=== PATIENT | female | born 1940 | race Caucasian/White ===

== ENCOUNTER → 2023-09-12 05:00 | Outpatient (REF) | payer MEDICARE, SELFPAY ==
[2023-09-12 09:06] LABS: Hemoglobin 10.2 g/dL (12.0-15.0); Mean Corp Hgb Conc 31.9 g/dL (32-36); Mean Corpuscular Hgb 31.6 pg (27.0-32.0); Mean Corpuscular Volume 99.1 fL (81-99); Mean Platelet Vol. 9.9 fl (6.2-12.0); Platelet Count 138 K/mm3 (150-450); RBC Distribution Width CV 13.7 % (11.6-14.6); Red Blood Count 3.23 M/mm3 (4.2-5.4); White Blood Count 3.9 K/mm3 (4.4-11.0)
[2023-09-12 09:36] LABS: Vitamin B12 847 pg/mL (211-911)
[2023-09-12 09:47] LABS: ALB/GLOB Ratio 1.2 RATIO (0.9-2.4); AST(SGOT) 17 U/L (15-37); Alanine Aminotransfer ALT/SGPT 18 U/L (13-56); Albumin, Serum 3.3 g/dL (3.2-5.0); Alkaline Phosphatase 77 U/L (45-117); Anion Gap 4 (5-15); BUN 19 mg/dL (7-18); BUN/Creat Ratio 20.1 RATIO (10-20); Calcium,Total 9.2 mg/dL (8.5-10.1); Chloride 113 mmol/L (98-107); Creatinine, Serum 0.94 mg/dL (0.55-1.02); EST Glomerular Filtration Rate 60 mL/min (>60); Est Glom Filt Rate - Afr Amer 73 mL/min (>60); Globulin 2.8 g/dL (2.2-4.2); Glucose 107 mg/dL (74-106); Potassium 3.4 mmol/L (3.5-5.1); Protein, Total 6.1 g/dL (6.4-8.2); Sodium Level 143 mmol/L (136-145); Thyroid Stim Hormone (TSH) 1.26 uIU/mL (0.358-3.74)
== END ==
LOC: OLS.ACH 05:00
PROVIDERS: Visit Provider Internal Medicine
DX: D63.1 Anemia in chronic kidney disease (principal); G60.3 Idiopathic progressive neuropathy; E03.9 Hypothyroidism, unspecified
CPT/HCPCS: 36415; 80053; 82607; 84443; 85027

== ENCOUNTER → 2023-09-23 | Outpatient (REF) | payer MEDICARE, SELFPAY ==
[2023-09-23 07:47] LABS: Bacteria 0 SEEN /hpf (None Seen); Mucous, Urine 0 SEEN /hpf (<or=2+); Red Blood Cells-Urine 0 SEEN /hpf (0-5); Squamous Epithelial Cells - UA 0 SEEN /hpf (5-10); White Blood Cells 0 SEEN /hpf (0-5)
[2023-09-23 08:08] LABS: Color, Urine Yellow (Yellow); Glucose, Dipstick Normal (Normal); Ketone-Dipstick Negative (Negative); Leukocyte Esterase-Dipstick Negative /ul (Negative); Nitrite-Dipstick Negative (Negative); Occult Blood-Urine Negative /ul (Negative); Protein-Dipstick Negative (Negative); Urine Bilirubin Dipstick Negative (Negative); Urine Clarity Sl. Cloudy (Clear); Urine Urobilinogen Normal (Normal); Urine pH 6.5 (5.0 - 8.0)
[2023-09-23 08:10] LABS: Hematocrit 31.9 % (37-47); Mean Corp Hgb Conc 31.3 g/dL (32-36); Mean Corpuscular Volume 98.8 fL (81-99); Platelet Count 118 K/mm3 (150-450); RBC Distribution Width CV 12.7 % (11.6-14.6); RBC Distribution Width SD 45.8 fl (35.1-43.9); Red Blood Count 3.23 M/mm3 (4.2-5.4); White Blood Count 4.1 K/mm3 (4.4-11.0)
[2023-09-23 08:38] LABS: Anion Gap 4 (5-15); BUN 19 mg/dL (7-18); BUN/Creat Ratio 19.6 RATIO (10-20); Calcium,Total 9.6 mg/dL (8.5-10.1); Chloride 106 mmol/L (98-107); Creatinine, Serum 0.97 mg/dL (0.55-1.02); EST Glomerular Filtration Rate 58 mL/min (>60); Est Glom Filt Rate - Afr Amer 71 mL/min (>60); Glucose 100 mg/dL (74-106); Potassium 4.2 mmol/L (3.5-5.1); Sodium Level 140 mmol/L (136-145)
== END ==
LOC: OLS.ACH 05:00
PROVIDERS: Visit Provider Internal Medicine
DX: I13.10 Hypertensive heart and chronic kidney disease without heart failure, with stage 1 through stage 4 chronic kidney disease, or unspecified chronic kidney disease (principal); N20.0 Calculus of kidney; Z87.440 Personal history of urinary (tract) infections
CPT/HCPCS: 36415; 80048; 81001; 85027; 87086

== ENCOUNTER → 2023-10-04 05:00 | Outpatient (REF) | payer MEDICARE, MEDICAID, SELFPAY ==
[2023-10-04 08:26] LABS: Potassium 4.4 mmol/L (3.5-5.1)
== END ==
LOC: OLS.ACH 05:00
PROVIDERS: Visit Provider Internal Medicine
DX: I13.10 Hypertensive heart and chronic kidney disease without heart failure, with stage 1 through stage 4 chronic kidney disease, or unspecified chronic kidney disease (principal); N18.9 Chronic kidney disease, unspecified
CPT/HCPCS: 36415; 84132

== ENCOUNTER → 2023-12-05 | Outpatient (REF) | payer MEDICARE, MEDICAID, SELFPAY ==
[2023-12-05 09:15] LABS: Hematocrit 29.3 % (37-47); Hemoglobin 9.3 g/dL (12.0-15.0); Mean Corp Hgb Conc 31.7 g/dL (32-36); Mean Corpuscular Hgb 30.3 pg (27.0-32.0); Mean Corpuscular Volume 95.4 fL (81-99); Mean Platelet Vol. 9.8 fl (6.2-12.0); Platelet Count 144 K/mm3 (150-450); RBC Distribution Width CV 13.4 % (11.6-14.6); RBC Distribution Width SD 46.7 fl (35.1-43.9); Red Blood Count 3.07 M/mm3 (4.2-5.4); White Blood Count 4.1 K/mm3 (4.4-11.0)
[2023-12-05 10:02] LABS: ALB/GLOB Ratio 1.1 RATIO (0.9-2.4); AST(SGOT) 3 U/L (15-37); Alanine Aminotransfer ALT/SGPT 13 U/L (13-56); Albumin, Serum 3.1 g/dL (3.2-5.0); Alkaline Phosphatase 97 U/L (45-117); Anion Gap 6 (5-15); BUN 34 mg/dL (7-18); BUN/Creat Ratio 32.4 RATIO (10-20); Calcium,Total 9.5 mg/dL (8.5-10.1); Chloride 105 mmol/L (98-107); Creatinine, Serum 1.05 mg/dL (0.55-1.02); EST Glomerular Filtration Rate 53 mL/min (>60); Est Glom Filt Rate - Afr Amer 64 mL/min (>60); Globulin 2.7 g/dL (2.2-4.2); Glucose 98 mg/dL (74-106); Potassium 4.6 mmol/L (3.5-5.1); Protein, Total 5.8 g/dL (6.4-8.2); Sodium Level 139 mmol/L (136-145)
== END ==
LOC: OLS.ACH 05:00
PROVIDERS: Visit Provider Internal Medicine
DX: G60.3 Idiopathic progressive neuropathy (principal); D63.1 Anemia in chronic kidney disease
CPT/HCPCS: 36415; 80053; 85027

== ENCOUNTER → 2023-12-20 | Outpatient (REF) | payer MEDICARE, MEDICAID, SELFPAY ==
[2023-12-20 09:57] LABS: Mucous, Urine 0 SEEN /hpf (<or=2+); White Blood Cells 0 SEEN /hpf (0-5)
[2023-12-20 10:27] LABS: Color, Urine Yellow (Yellow); Glucose, Dipstick Normal (Normal); Ketone-Dipstick Negative (Negative); Leukocyte Esterase-Dipstick 25 /ul (Negative); Nitrite-Dipstick Negative (Negative); Occult Blood-Urine Negative /ul (Negative); Protein-Dipstick Negative (Negative); Urine Bilirubin Dipstick Negative (Negative); Urine Clarity Clear (Clear); Urine Urobilinogen Normal (Normal); Urine pH 6.5 (5.0 - 8.0)
[2023-12-20 10:34] LABS: Red Blood Cells-Urine 0-5 SEEN /hpf (0-5)
[2023-12-20 10:34] LABS: Hematocrit 31.6 % (37-47); Mean Corp Hgb Conc 31.6 g/dL (32-36); Mean Corpuscular Hgb 30.7 pg (27.0-32.0); Mean Corpuscular Volume 96.9 fL (81-99); Platelet Count 142 K/mm3 (150-450); RBC Distribution Width CV 13.4 % (11.6-14.6); Red Blood Count 3.26 M/mm3 (4.2-5.4)
[2023-12-20 10:35] LABS: AST(SGOT) 17 U/L (15-37); Alanine Aminotransfer ALT/SGPT 13 U/L (13-56); Albumin, Serum 3.2 g/dL (3.2-5.0); Alkaline Phosphatase 99 U/L (45-117); Anion Gap 3 (5-15); BUN 28 mg/dL (7-18); BUN/Creat Ratio 24.1 RATIO (10-20); Calcium,Total 9.5 mg/dL (8.5-10.1); Chloride 108 mmol/L (98-107); Creatinine, Serum 1.16 mg/dL (0.55-1.02); EST Glomerular Filtration Rate 47 mL/min (>60); Est Glom Filt Rate - Afr Amer 57 mL/min (>60); Globulin 3.2 g/dL (2.2-4.2); Glucose 89 mg/dL (74-106); Potassium 4.8 mmol/L (3.5-5.1); Protein, Total 6.4 g/dL (6.4-8.2); Sodium Level 141 mmol/L (136-145)
[2023-12-20 10:35] LABS: Bacteria RARE /hpf (None Seen); Squamous Epithelial Cells - UA 0-5 SEEN /hpf (5-10); Transitional Epithelial - Ur 0-5 SEEN /hpf (0-5)
== END ==
LOC: OLS.ACH 05:00
PROVIDERS: Visit Provider Internal Medicine
DX: N18.30 Chronic kidney disease, stage 3 unspecified (principal); D63.1 Anemia in chronic kidney disease; I73.89 Other specified peripheral vascular diseases; R39.9 Unspecified symptoms and signs involving the genitourinary system; Z87.442 Personal history of urinary calculi
CPT/HCPCS: 36415; 80053; 81001; 85027; 87086; 87088

== ENCOUNTER → 2024-01-17 05:00 | Outpatient (REF) | payer MEDICARE, MEDICAID, SELFPAY ==
[2024-01-17 08:54] LABS: Hemoglobin 8.8 g/dL (12.0-15.0); Mean Corp Hgb Conc 31.4 g/dL (32-36); Mean Corpuscular Hgb 30.8 pg (27.0-32.0); Mean Corpuscular Volume 97.9 fL (81-99); Mean Platelet Vol. 10.1 fl (6.2-12.0); Platelet Count 122 K/mm3 (150-450); RBC Distribution Width CV 13.2 % (11.6-14.6); RBC Distribution Width SD 47.1 fl (35.1-43.9); Red Blood Count 2.86 M/mm3 (4.2-5.4); White Blood Count 3.6 K/mm3 (4.4-11.0)
[2024-01-17 09:23] LABS: Anion Gap 6 (5-15); BUN 26 mg/dL (7-18); BUN/Creat Ratio 24.1 RATIO (10-20); Calcium,Total 9.6 mg/dL (8.5-10.1); Chloride 105 mmol/L (98-107); Creatinine, Serum 1.08 mg/dL (0.55-1.02); EST Glomerular Filtration Rate 52 mL/min (>60); Est Glom Filt Rate - Afr Amer 62 mL/min (>60); Glucose 96 mg/dL (74-106); Potassium 4.9 mmol/L (3.5-5.1); Sodium Level 138 mmol/L (136-145)
== END ==
LOC: OLS.ACH 05:00
PROVIDERS: Visit Provider Internal Medicine
DX: I13.10 Hypertensive heart and chronic kidney disease without heart failure, with stage 1 through stage 4 chronic kidney disease, or unspecified chronic kidney disease (principal); N18.9 Chronic kidney disease, unspecified
CPT/HCPCS: 36415; 80048; 85027

== ENCOUNTER → 2024-01-18 05:00 | Outpatient (REF) | payer MEDICARE, MEDICAID, SELFPAY ==
[2024-01-18 08:35] LABS: Bacteria 0 SEEN /hpf (None Seen); Mucous, Urine 0 SEEN /hpf (<or=2+); Red Blood Cells-Urine 0 SEEN /hpf (0-5); Squamous Epithelial Cells - UA 0 SEEN /hpf (5-10); White Blood Cells 0 SEEN /hpf (0-5)
[2024-01-18 08:39] LABS: Hematocrit 29.8 % (37-47); Hemoglobin 9.6 g/dL (12.0-15.0); Mean Corp Hgb Conc 32.2 g/dL (32-36); Mean Corpuscular Hgb 30.9 pg (27.0-32.0); Mean Corpuscular Volume 95.8 fL (81-99); Mean Platelet Vol. 9.7 fl (6.2-12.0); Platelet Count 142 K/mm3 (150-450); RBC Distribution Width CV 13.3 % (11.6-14.6); RBC Distribution Width SD 46.8 fl (35.1-43.9); Red Blood Count 3.11 M/mm3 (4.2-5.4); White Blood Count 4.8 K/mm3 (4.4-11.0)
[2024-01-18 08:56] LABS: Ferritin 62 ng/mL (8-252); Iron 50 ug/dL (50-170); Iron Binding Capacity,Total 295 ug/dL (250-450); PERCENT IRON SATURATION 16.9 % (15.0-55.0)
[2024-01-18 09:07] LABS: Color, Urine Yellow (Yellow); Glucose, Dipstick Normal (Normal); Ketone-Dipstick Negative (Negative); Leukocyte Esterase-Dipstick Negative /ul (Negative); Nitrite-Dipstick Negative (Negative); Occult Blood-Urine Negative /ul (Negative); Protein-Dipstick Negative (Negative); Urine Bilirubin Dipstick Negative (Negative); Urine Clarity Clear (Clear); Urine Urobilinogen Normal (Normal); Urine pH 6.5 (5.0 - 8.0)
[2024-01-18 09:12] LABS: Vitamin B12 768 pg/mL (211-911)
== END ==
LOC: OLS.ACH 05:00
PROVIDERS: Visit Provider Internal Medicine
DX: R10.9 Unspecified abdominal pain (principal); D63.1 Anemia in chronic kidney disease; Z87.440 Personal history of urinary (tract) infections
CPT/HCPCS: 36415; 81001; 82607; 82728; 82746; 83540; 83550; 85027; 87086

== ENCOUNTER → 2024-01-23 05:00 | Outpatient (REF) | payer MEDICARE, MEDICAID, SELFPAY ==
[2024-01-23 11:03] LABS: Anion Gap 5 (5-15); BUN 27 mg/dL (7-18); BUN/Creat Ratio 26.7 RATIO (10-20); Calcium,Total 9.2 mg/dL (8.5-10.1); Chloride 106 mmol/L (98-107); Creatinine, Serum 1.01 mg/dL (0.55-1.02); EST Glomerular Filtration Rate 56 mL/min (>60); Est Glom Filt Rate - Afr Amer 67 mL/min (>60); Glucose 94 mg/dL (74-106); Potassium 4.4 mmol/L (3.5-5.1); Sodium Level 138 mmol/L (136-145)
== END ==
LOC: OLS.ACH 05:00
PROVIDERS: Visit Provider Internal Medicine
DX: N18.30 Chronic kidney disease, stage 3 unspecified (principal)
CPT/HCPCS: 36415; 80048

== ENCOUNTER → 2024-02-27 | Outpatient (REF) | payer MEDICARE, MEDICAID, SELFPAY ==
[2024-02-27 08:30] LABS: Hematocrit 27.7 % (37-47); Hemoglobin 8.8 g/dL (12.0-15.0); Mean Corp Hgb Conc 31.8 g/dL (32-36); Mean Corpuscular Hgb 30.4 pg (27.0-32.0); Mean Corpuscular Volume 95.8 fL (81-99); Mean Platelet Vol. 9.9 fl (6.2-12.0); Platelet Count 134 K/mm3 (150-450); RBC Distribution Width SD 46.1 fl (35.1-43.9); Red Blood Count 2.89 M/mm3 (4.2-5.4); White Blood Count 4.9 K/mm3 (4.4-11.0)
[2024-02-27 09:07] LABS: ALB/GLOB Ratio 1.1 RATIO (0.9-2.4); AST(SGOT) 14 U/L (15-37); Alanine Aminotransfer ALT/SGPT 12 U/L (13-56); Albumin, Serum 3.1 g/dL (3.2-5.0); Alkaline Phosphatase 94 U/L (45-117); Anion Gap 6 (5-15); BUN 31 mg/dL (7-18); Calcium,Total 8.9 mg/dL (8.5-10.1); Chloride 109 mmol/L (98-107); Creatinine, Serum 1.29 mg/dL (0.55-1.02); EST Glomerular Filtration Rate 42 mL/min (>60); Est Glom Filt Rate - Afr Amer 51 mL/min (>60); Globulin 2.7 g/dL (2.2-4.2); Glucose 95 mg/dL (74-106); Potassium 4.8 mmol/L (3.5-5.1); Protein, Total 5.8 g/dL (6.4-8.2); Sodium Level 140 mmol/L (136-145); Thyroid Stim Hormone (TSH) 0.011 uIU/mL (0.358-3.740)
== END ==
LOC: OLS.ACH 04:00
PROVIDERS: Visit Provider Internal Medicine
DX: E03.9 Hypothyroidism, unspecified (principal); D63.1 Anemia in chronic kidney disease; G60.3 Idiopathic progressive neuropathy
CPT/HCPCS: 36415; 80053; 82607; 84443; 85027

== ENCOUNTER → 2024-03-06 | Outpatient (REF) | payer MEDICARE, MEDICAID, SELFPAY ==
[2024-03-06 08:35] LABS: ALB/GLOB Ratio 1.1 RATIO (0.9-2.4); AST(SGOT) 12 U/L (15-37); Alanine Aminotransfer ALT/SGPT 11 U/L (13-56); Albumin, Serum 3.1 g/dL (3.2-5.0); Alkaline Phosphatase 106 U/L (45-117); Anion Gap 5 (5-15); BUN 28 mg/dL (7-18); BUN/Creat Ratio 22.4 RATIO (10-20); Calcium,Total 9.3 mg/dL (8.5-10.1); Chloride 109 mmol/L (98-107); Creatinine, Serum 1.25 mg/dL (0.55-1.02); EST Glomerular Filtration Rate 44 mL/min (>60); Est Glom Filt Rate - Afr Amer 53 mL/min (>60); Globulin 2.8 g/dL (2.2-4.2); Glucose 89 mg/dL (74-106); Magnesium 1.8 mg/dL (1.6-2.6); Potassium 5.5 mmol/L (3.5-5.1); Protein, Total 5.9 g/dL (6.4-8.2); Sodium Level 139 mmol/L (136-145)
== END ==
LOC: OLS.ACH 05:00
PROVIDERS: Visit Provider Internal Medicine
DX: G60.3 Idiopathic progressive neuropathy (principal)
CPT/HCPCS: 36415; 80053; 83735

== ENCOUNTER → 2024-03-07 | Outpatient (REF) | payer MEDICARE, MEDICAID, SELFPAY ==
[2024-03-07 09:15] LABS: Potassium 5.1 mmol/L (3.5-5.1)
== END ==
LOC: OLS.ACH 05:00
PROVIDERS: Visit Provider Internal Medicine
DX: E87.5 Hyperkalemia (principal)
CPT/HCPCS: 36415; 84132

== ENCOUNTER → 2024-03-08 | Outpatient (REF) | payer MEDICARE, MEDICAID, SELFPAY ==
[2024-03-08 09:18] LABS: Potassium 4.6 mmol/L (3.5-5.1)
== END ==
LOC: OLS.ACH 05:00
PROVIDERS: Visit Provider Internal Medicine
DX: E87.5 Hyperkalemia (principal)
CPT/HCPCS: 36415; 84132

== ENCOUNTER → 2024-03-09 | Outpatient (REF) | payer MEDICARE, MEDICAID, SELFPAY ==
[2024-03-09 10:35] LABS: Potassium 4.4 mmol/L (3.5-5.1)
== END ==
LOC: OLS.ACH 05:00
PROVIDERS: Visit Provider Internal Medicine
DX: E87.5 Hyperkalemia (principal)
CPT/HCPCS: 36415; 84132

== ENCOUNTER → 2024-03-20 | Outpatient (REF) | payer MEDICARE, MEDICAID, SELFPAY ==
[2024-03-20 09:33] LABS: Anion Gap 8 (5-15); BUN 27 mg/dL (7-18); BUN/Creat Ratio 27.2 RATIO (10-20); Calcium,Total 9.2 mg/dL (8.5-10.1); Chloride 108 mmol/L (98-107); Creatinine, Serum 0.99 mg/dL (0.55-1.02); EST Glomerular Filtration Rate 57 mL/min (>60); Est Glom Filt Rate - Afr Amer 69 mL/min (>60); Glucose 99 mg/dL (74-106); Potassium 4.1 mmol/L (3.5-5.1); Sodium Level 141 mmol/L (136-145)
== END ==
LOC: OLS.ACH 04:00
PROVIDERS: Referring Provider Internal Medicine; Visit Provider Internal Medicine
DX: I13.10 Hypertensive heart and chronic kidney disease without heart failure, with stage 1 through stage 4 chronic kidney disease, or unspecified chronic kidney disease (principal); I50.9 Heart failure, unspecified; N18.9 Chronic kidney disease, unspecified
CPT/HCPCS: 36415; 80048

== ENCOUNTER → 2024-04-06 05:00 | Outpatient (REF) | payer MEDICARE, MEDICAID, SELFPAY ==
[2024-04-06 08:28] LABS: Thyroid Stim Hormone (TSH) 0.024 uIU/mL (0.358-3.740)
== END ==
LOC: OLS.ACH 05:00
DX: E03.9 Hypothyroidism, unspecified (principal)
CPT/HCPCS: 36415; 84443

== ENCOUNTER → 2024-04-23 | Outpatient (REF) | payer MEDICARE, MEDICAID, SELFPAY ==
[2024-04-23 08:58] LABS: Hematocrit 30.1 % (37-47); Hemoglobin 9.8 g/dL (12.0-15.0); Mean Corp Hgb Conc 32.6 g/dL (32-36); Mean Corpuscular Hgb 30.8 pg (27.0-32.0); Mean Corpuscular Volume 94.7 fL (81-99); Mean Platelet Vol. 9.9 fl (6.2-12.0); Platelet Count 152 K/mm3 (150-450); RBC Distribution Width CV 13.8 % (11.6-14.6); RBC Distribution Width SD 47.7 fl (35.1-43.9); Red Blood Count 3.18 M/mm3 (4.2-5.4); White Blood Count 4.7 K/mm3 (4.4-11.0)
== END ==
LOC: OLS.ACH 05:00
PROVIDERS: Visit Provider Internal Medicine
DX: D64.9 Anemia, unspecified (principal)
CPT/HCPCS: 36415; 85027

== ENCOUNTER → 2024-05-04 | Outpatient (CLI) | payer MEDICARE, MEDICAID, SELFPAY ==
--- NOTE | 2024-05-04 15:14 | RAD_ITS ---
HISTORY: STONES. TECHNIQUE: XR Abdomen 1 View. COMPARISON: 08/15/2006. FINDINGS: BOWEL GAS PATTERN: No dilated small bowel loops identified. Mild gaseous distention of colon FREE AIR: Not assessed on supine view. CALCIFICATIONS: Several small calcifications overlying the renal shadows. Multiple vascular calcifications and pelvic phleboliths again seen. BONES: Lower lumbar spinal fusion hardware and Gamma nail fixation of chronic left intertrochanteric femur fracture with heterotopic ossification noted. SOFT TISSUES: Right upper quadrant surgical clips. Left abdominal surgical clips with suture. RAD/Abdomen Single View IMPRESSION: Probable bilateral nephrolithiasis. Electronically Signed: Chey Morley MD at 9:15 EST ,
== END | disposition home or self-care (01) ==
PROVIDERS: Referring Provider Urology; Visit Provider Urology
DX: N20.0 Calculus of kidney (principal)
CPT/HCPCS: 74018

== ENCOUNTER → 2024-05-17 21:42 | Outpatient (REF) | payer MEDICARE, MEDICAID, SELFPAY ==
[2024-05-18 09:31] LABS: Bacteria 0 SEEN /hpf (None Seen); Mucous, Urine 0 SEEN /hpf (<or=2+); Red Blood Cells-Urine 0 SEEN /hpf (0-5)
[2024-05-18 10:12] LABS: Color, Urine Yellow (Yellow); Glucose, Dipstick Normal (Normal); Ketone-Dipstick Negative (Negative); Leukocyte Esterase-Dipstick 500 /ul (Negative); Nitrite-Dipstick Negative (Negative); Occult Blood-Urine 10 /ul (Negative); Protein-Dipstick 15 mg/dl (Negative); Urine Bilirubin Dipstick Negative (Negative); Urine Clarity Sl. Cloudy (Clear); Urine Urobilinogen Normal (Normal)
[2024-05-18 10:33] LABS: White Blood Cells 10-25 SEEN /hpf (0-5)
[2024-05-18 10:34] LABS: Squamous Epithelial Cells - UA 0-5 SEEN /hpf (5-10)
== END ==
LOC: OLS.ACH 21:42
PROVIDERS: Referring Provider Internal Medicine; Visit Provider Internal Medicine
DX: N39.0 Urinary tract infection, site not specified (principal)
CPT/HCPCS: 81001

== ENCOUNTER → 2024-05-21 05:00 | Outpatient (REF) | payer MEDICARE, MEDICAID, SELFPAY ==
[2024-05-21 09:58] LABS: Hematocrit 30.1 % (37-47); Hemoglobin 9.7 g/dL (12.0-15.0); Mean Corp Hgb Conc 32.2 g/dL (32-36); Mean Corpuscular Hgb 31.2 pg (27.0-32.0); Mean Corpuscular Volume 96.8 fL (81-99); Mean Platelet Vol. 10.2 fl (6.2-12.0); Platelet Count 139 K/mm3 (150-450); RBC Distribution Width CV 13.7 % (11.6-14.6); RBC Distribution Width SD 48.4 fl (35.1-43.9); Red Blood Count 3.11 M/mm3 (4.2-5.4); White Blood Count 5.2 K/mm3 (4.4-11.0)
[2024-05-21 10:53] LABS: ALB/GLOB Ratio 1.1 RATIO (0.9-2.4); AST(SGOT) 16 U/L (15-37); Alanine Aminotransfer ALT/SGPT 15 U/L (13-56); Albumin, Serum 3.1 g/dL (3.2-5.0); Alkaline Phosphatase 105 U/L (45-117); Anion Gap 6 (5-15); BUN 29 mg/dL (7-18); BUN/Creat Ratio 27.1 RATIO (10-20); Chloride 112 mmol/L (98-107); Creatinine, Serum 1.07 mg/dL (0.55-1.02); EST Glomerular Filtration Rate 52 mL/min (>60); Est Glom Filt Rate - Afr Amer 63 mL/min (>60); Globulin 2.9 g/dL (2.2-4.2); Glucose 105 mg/dL (74-106); Sodium Level 142 mmol/L (136-145); Thyroid Stim Hormone (TSH) 0.034 uIU/mL (0.358-3.740)
== END ==
LOC: OLS.ACH 05:00
PROVIDERS: Visit Provider Internal Medicine
DX: E03.9 Hypothyroidism, unspecified (principal)
CPT/HCPCS: 36415; 80053; 84443; 85027

== ENCOUNTER → 2024-07-02 05:00 | Outpatient (REF) | payer MEDICARE, MEDICAID, SELFPAY ==
[2024-07-02 09:30] LABS: Hematocrit 31.5 % (37-47); Hemoglobin 9.9 g/dL (12.0-15.0); Mean Corp Hgb Conc 31.4 g/dL (32-36); Mean Corpuscular Hgb 30.2 pg (27.0-32.0); Mean Platelet Vol. 10.2 fl (6.2-12.0); Platelet Count 143 K/mm3 (150-450); RBC Distribution Width CV 14.4 % (11.6-14.6); RBC Distribution Width SD 50.4 fl (35.1-43.9); Red Blood Count 3.28 M/mm3 (4.2-5.4); White Blood Count 4.8 K/mm3 (4.4-11.0)
[2024-07-02 09:53] LABS: Vitamin B12 1871 pg/mL (211-911)
[2024-07-02 10:19] LABS: AST(SGOT) 22 U/L (15-37); Alanine Aminotransfer ALT/SGPT 20 U/L (13-56); Albumin, Serum 3.1 g/dL (3.2-5.0); Alkaline Phosphatase 68 U/L (45-117); Anion Gap 11 (5-15); BUN 31 mg/dL (7-18); BUN/Creat Ratio 21.5 RATIO (10-20); Calcium,Total 8.6 mg/dL (8.5-10.1); Chloride 110 mmol/L (98-107); Creatinine, Serum 1.44 mg/dL (0.55-1.02); EST Glomerular Filtration Rate 37 mL/min (>60); Est Glom Filt Rate - Afr Amer 45 mL/min (>60); Globulin 3.2 g/dL (2.2-4.2); Glucose 95 mg/dL (74-106); Potassium 3.3 mmol/L (3.5-5.1); Protein, Total 6.3 g/dL (6.4-8.2); Sodium Level 139 mmol/L (136-145)
== END ==
LOC: OLS.ACH 05:00
PROVIDERS: Visit Provider Internal Medicine
DX: I13.10 Hypertensive heart and chronic kidney disease without heart failure, with stage 1 through stage 4 chronic kidney disease, or unspecified chronic kidney disease (principal)
CPT/HCPCS: 36415; 80053; 82607; 84443; 85027

== ENCOUNTER → 2024-07-06 05:00 | Outpatient (REF) | payer MEDICARE, MEDICAID, SELFPAY ==
[2024-07-06 08:00] LABS: Anion Gap 5 (5-15); BUN 20 mg/dL (7-18); BUN/Creat Ratio 18.7 RATIO (10-20); Calcium,Total 9.3 mg/dL (8.5-10.1); Chloride 114 mmol/L (98-107); Creatinine, Serum 1.07 mg/dL (0.55-1.02); EST Glomerular Filtration Rate 52 mL/min (>60); Est Glom Filt Rate - Afr Amer 63 mL/min (>60); Glucose 112 mg/dL (74-106); Potassium 3.8 mmol/L (3.5-5.1); Sodium Level 142 mmol/L (136-145)
== END ==
LOC: OLS.ACH 05:00
PROVIDERS: Visit Provider Internal Medicine
DX: N18.30 Chronic kidney disease, stage 3 unspecified (principal)
CPT/HCPCS: 36415; 80048

== ENCOUNTER → 2024-07-11 | Outpatient (REF) | payer MEDICARE, MEDICAID, SELFPAY ==
[2024-07-12 08:09] LABS: Mucous, Urine 0 SEEN /hpf (<or=2+); Squamous Epithelial Cells - UA 0 SEEN /hpf (5-10)
[2024-07-12 08:39] LABS: Color, Urine Yellow (Yellow); Glucose, Dipstick Normal (Normal); Ketone-Dipstick Negative (Negative); Leukocyte Esterase-Dipstick 100 /ul (Negative); Nitrite-Dipstick Positive (Negative); Occult Blood-Urine Negative /ul (Negative); Protein-Dipstick 15 mg/dl (Negative); Urine Bilirubin Dipstick Negative (Negative); Urine Clarity Sl. Cloudy (Clear); Urine Urobilinogen Normal (Normal); Urine pH 6.5 (5.0 - 8.0)
[2024-07-12 08:50] LABS: Bacteria 1+ /hpf (None Seen); White Blood Cells 5-10 SEEN /hpf (0-5)
[2024-07-12 11:09] LABS: Red Blood Cells-Urine 0 SEEN /hpf (0-5)
== END ==
LOC: OLS.ACH 13:00
PROVIDERS: Visit Provider Internal Medicine
DX: R39.9 Unspecified symptoms and signs involving the genitourinary system (principal); Z87.442 Personal history of urinary calculi
CPT/HCPCS: 81001; 87086; 87088; 87186

== ENCOUNTER → 2024-07-11 | Outpatient (REF) | payer MEDICARE, MEDICAID, SELFPAY ==
[2024-07-11 08:26] LABS: Hematocrit 29.6 % (37-47); Hemoglobin 10.1 g/dL (12.0-15.0); Mean Corp Hgb Conc 34.1 g/dL (32-36); Mean Corpuscular Hgb 32.7 pg (27.0-32.0); Mean Corpuscular Volume 95.8 fL (81-99); Mean Platelet Vol. 9.6 fl (6.2-12.0); Platelet Count 176 K/mm3 (150-450); RBC Distribution Width CV 14.6 % (11.6-14.6); RBC Distribution Width SD 48.5 fl (35.1-43.9); Red Blood Count 3.09 M/mm3 (4.2-5.4); White Blood Count 7.2 K/mm3 (4.4-11.0)
[2024-07-11 09:25] LABS: ALB/GLOB Ratio 1.8 RATIO (0.9-2.4); AST(SGOT) 21 U/L (<=31); Alanine Aminotransfer ALT/SGPT 13 U/L (<=34); Albumin, Serum 3.7 g/dL (3.4-4.8); Alkaline Phosphatase 82 U/L (35-104); Anion Gap 11 (5-15); BUN 22 mg/dL (4-19); BUN/Creat Ratio 23.3 RATIO (10-20); Calcium 8.9 mg/dL (7.6-11.0); Carbon Dioxide 21.1 mmol/L (22.0-29.0); Chloride 109 mmol/L (96-108); Creatinine, Serum 0.9 mg/dL (0.6-1.0); EST Glomerular Filtration Rate 61 (>60); Globulin 2.1 g/dL (2.2-4.2); Glucose 96 mg/dL (70-99); Potassium 3.7 mmol/L (3.3-5.1); Protein, Total 5.7 g/dL (5.9-8.4); Sodium Level 141 mmol/L (133-145); Total Bilirubin 0.65 mg/dL (0.00-1.30)
== END ==
LOC: OLS.ACH 05:00
PROVIDERS: Visit Provider Internal Medicine
DX: Z87.442 Personal history of urinary calculi (principal)
CPT/HCPCS: 36415; 80053; 85027

== ENCOUNTER → 2024-07-24 | Outpatient (REF) | payer MEDICARE, MEDICAID, SELFPAY ==
[2024-07-24 08:10] LABS: Mucous, Urine 0 SEEN /hpf (<or=2+)
[2024-07-24 08:38] LABS: Color, Urine Yellow (Yellow); Glucose, Dipstick Normal (Normal); Ketone-Dipstick Negative (Negative); Leukocyte Esterase-Dipstick 500 /ul (Negative); Nitrite-Dipstick Positive (Negative); Occult Blood-Urine Negative /ul (Negative); Protein-Dipstick 30 mg/dl (Negative); Specific Gravity, Urine 1.015 (1.002-1.030); Urine Bilirubin Dipstick Negative (Negative); Urine Clarity Clear (Clear); Urine Urobilinogen Normal (Normal)
[2024-07-24 09:49] LABS: Bacteria 4+ /hpf (None Seen); Red Blood Cells-Urine 0 SEEN /hpf (0-5); Squamous Epithelial Cells - UA 0-5 SEEN /hpf (5-10); White Blood Cells 25-50 SEEN /hpf (0-5)
== END ==
LOC: OLS.ACH 01:00
PROVIDERS: Visit Provider Internal Medicine
DX: R73.03 Prediabetes (principal); R39.9 Unspecified symptoms and signs involving the genitourinary system; Z87.440 Personal history of urinary (tract) infections
CPT/HCPCS: 81001; 87086; 87088; 87186

== ENCOUNTER → 2024-07-30 | Outpatient (REF) | payer MEDICARE, MEDICAID, SELFPAY ==
[2024-07-30 13:39] LABS: Vitamin B12 802 pg/mL (180-914)
== END ==
LOC: OLS.ACH 05:00
PROVIDERS: Visit Provider Internal Medicine
DX: D64.9 Anemia, unspecified (principal)
CPT/HCPCS: 36415; 82607

== ENCOUNTER → 2024-08-13 | Outpatient (REF) | payer MEDICARE, MEDICAID, SELFPAY ==
[2024-08-13 08:45] LABS: Hematocrit 29.7 % (37-47); Hemoglobin 9.9 g/dL (12.0-15.0); Mean Corp Hgb Conc 33.3 g/dL (32-36); Mean Corpuscular Hgb 32.7 pg (27.0-32.0); Platelet Count 149 K/mm3 (150-450); RBC Distribution Width CV 14.3 % (11.6-14.6); RBC Distribution Width SD 50.4 fl (35.1-43.9); Red Blood Count 3.03 M/mm3 (4.2-5.4); White Blood Count 4.7 K/mm3 (4.4-11.0)
[2024-08-13 09:19] LABS: ALB/GLOB Ratio 1.6 RATIO (0.9-2.4); AST(SGOT) 27 U/L (<=31); Alanine Aminotransfer ALT/SGPT 18 U/L (<=34); Albumin, Serum 3.8 g/dL (3.4-4.8); Alkaline Phosphatase 79 U/L (35-104); Anion Gap 11 (5-15); BUN 28 mg/dL (4-19); BUN/Creat Ratio 26.2 RATIO (10-20); Calcium,Total 9.3 mg/dL (7.6-11.0); Carbon Dioxide 22.4 mmol/L (21.0-32.0); Chloride 107 mmol/L (98-108); Creatinine, Serum 1.06 mg/dL (0.70-1.20); EST Glomerular Filtration Rate 52 (>60); Globulin 2.3 g/dL (2.2-4.2); Glucose 94 mg/dL (70-99); Potassium 4.1 mmol/L (3.3-5.1); Protein, Total 6.1 g/dL (5.9-8.4); Sodium Level 140 mmol/L (133-145); Total Bilirubin 1.12 mg/dL (0.00-1.30); Vitamin B12 744 pg/mL (180-914)
== END ==
LOC: OLS.ACH 05:00
PROVIDERS: Visit Provider Family Medicine
DX: E03.9 Hypothyroidism, unspecified (principal)
CPT/HCPCS: 36415; 80053; 82607; 84443; 85027

== ENCOUNTER → 2024-09-03 | Outpatient (REF) | payer MEDICARE, MEDICAID, SELFPAY ==
[2024-09-03 09:26] LABS: Hematocrit 29.9 % (37-47); Hemoglobin 9.5 g/dL (12.0-15.0); Mean Corp Hgb Conc 31.8 g/dL (32-36); Mean Corpuscular Volume 97.7 fL (81-99); Mean Platelet Vol. 10.3 fl (6.2-12.0); Platelet Count 145 K/mm3 (150-450); RBC Distribution Width CV 13.6 % (11.6-14.6); RBC Distribution Width SD 48.5 fl (35.1-43.9); Red Blood Count 3.06 M/mm3 (4.2-5.4)
[2024-09-03 09:59] LABS: Anion Gap 9 (5-15); BUN 31 mg/dL (4-19); BUN/Creat Ratio 28.9 RATIO (10-20); Calcium,Total 9.4 mg/dL (7.6-11.0); Carbon Dioxide 24.7 mmol/L (21.0-32.0); Chloride 108 mmol/L (98-108); Creatinine, Serum 1.08 mg/dL (0.70-1.20); EST Glomerular Filtration Rate 51 (>60); Glucose 109 mg/dL (70-99); Potassium 4.3 mmol/L (3.3-5.1); Sodium Level 142 mmol/L (133-145)
== END ==
LOC: OLS.ACH 05:00
PROVIDERS: Visit Provider Internal Medicine
DX: R05.1 Acute cough (principal)
CPT/HCPCS: 36415; 80048; 85027; 87631

== ENCOUNTER → 2024-09-11 | Outpatient (REF) | payer MEDICARE, MEDICAID, SELFPAY | LOC: OLS.ACH 04:00 | PROVIDERS: Referring Provider Internal Medicine; Visit Provider Internal Medicine | DX: E03.9 Hypothyroidism, unspecified (principal); E78.5 Hyperlipidemia, unspecified | CPT/HCPCS: 36415; 84550 ==

== ENCOUNTER → 2024-09-17 | Outpatient (REF) | payer MEDICARE, MEDICAID, SELFPAY ==
[2024-09-17 09:01] LABS: Mucous, Urine 0 SEEN /hpf (<or=2+); Red Blood Cells-Urine 0 SEEN /hpf (0-5)
[2024-09-17 09:44] LABS: Color, Urine Yellow (Yellow); Glucose, Dipstick Normal (Normal); Ketone-Dipstick Negative (Negative); Leukocyte Esterase-Dipstick 500 /ul (Negative); Nitrite-Dipstick Positive (Negative); Occult Blood-Urine Negative /ul (Negative); Protein-Dipstick 15 mg/dl (Negative); Urine Bilirubin Dipstick Negative (Negative); Urine Clarity Clear (Clear); Urine Urobilinogen Normal (Normal)
[2024-09-17 09:53] LABS: Hematocrit 32.3 % (37-47); Hemoglobin 10.7 g/dL (12.0-15.0); Mean Corp Hgb Conc 33.1 g/dL (32-36); Mean Corpuscular Hgb 32.4 pg (27.0-32.0); Mean Corpuscular Volume 97.9 fL (81-99); Mean Platelet Vol. 10.1 fl (6.2-12.0); Platelet Count 144 K/mm3 (150-450); RBC Distribution Width CV 13.2 % (11.6-14.6); RBC Distribution Width SD 47.2 fl (35.1-43.9); White Blood Count 5.1 K/mm3 (4.4-11.0)
[2024-09-17 09:55] LABS: Bacteria 1+ /hpf (None Seen); Squamous Epithelial Cells - UA 0-5 SEEN /hpf (5-10); White Blood Cells 25-50 SEEN /hpf (0-5)
[2024-09-17 10:13] LABS: Anion Gap 10 (5-15); BUN 26 mg/dL (4-19); BUN/Creat Ratio 22.4 RATIO (10-20); Calcium,Total 9.6 mg/dL (7.6-11.0); Carbon Dioxide 24.3 mmol/L (21.0-32.0); Chloride 107 mmol/L (98-108); Creatinine, Serum 1.14 mg/dL (0.70-1.20); EST Glomerular Filtration Rate 48 (>60); Glucose 98 mg/dL (70-99); Potassium 4.3 mmol/L (3.3-5.1); Sodium Level 141 mmol/L (133-145)
== END ==
LOC: OLS.ACH 05:00
PROVIDERS: Visit Provider Internal Medicine
DX: I13.10 Hypertensive heart and chronic kidney disease without heart failure, with stage 1 through stage 4 chronic kidney disease, or unspecified chronic kidney disease (principal); N18.9 Chronic kidney disease, unspecified; N20.0 Calculus of kidney; N39.46 Mixed incontinence
CPT/HCPCS: 36415; 80048; 81001; 85027; 87086; 87088; 87186

== ENCOUNTER → 2024-09-24 | Outpatient (REF) | payer MEDICARE, MEDICAID, SELFPAY | LOC: OLS.ACH 05:00 | PROVIDERS: Visit Provider Internal Medicine | DX: D64.9 Anemia, unspecified (principal) | CPT/HCPCS: 36415; 84443 ==

== ENCOUNTER → 2024-11-05 | Outpatient (REF) | payer MEDICARE, MEDICAID, SELFPAY ==
--- OUTSIDE RECORDS SUMMARY | 2024-11-05 03:37 | XMS RPT_ITS | CCD ---
Author Organization [facility] Care Team Providers Care 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 Name Role Phone Brenda Hardy MD, Dev Primary Care Provider Town Doctor, Out of Primary Care Provider Johnny Gutierrez MD, Dev Attending Provider Unavailable Eva BALDWIN, Dr. Jeffrey Attending Provider Dr. Rachele Velasquez MD Referring Provider Brenda BALDWIN, Dev Referring Provider Unavailable Jack Fletcher Attending Provider Unavailabl e Town Doctor, Out of Primary Care Provider Johnny Gutierrez MD, Dev Attending Provider Unavailable Town Doctor, Out of Primary Care Provider Johnny Gutierrez MD, Dev Attending Provider Unavailable Jack Fletcher Attending Unavailable Town Doctor, Out of Primary Care Unavailable Town Doctor, Out of Primary Care Unavailable Brenda GUTIERREZ, Dev Attending Unavailable Town Doctor, Out of Primary Care Unavailable Brenda GUTIERREZ, Dev Attending Unavailable Araselio BRENDA, Dev Referring Unavailable Brenda GUTIERREZ, Dev Attending Unavailable Town Doctor, Out of Primary Care Unavailable Brenda GUTIERREZ, Dev Attending Unavailable Town Doctor, Out of Primary Care Unavailable Araselio BRENDA, Dev Referring Unavailable Town Doctor, Out of Primary Care Unavailable [facility] Attending Johnny GUTIERREZ, Dev Attending Unavailable Town Doctor, Out of Primary Care Unavailable Araselio BRENDA, Dev Attending Unavailable Town Doctor, Out of Primary Care Unavailable Deperro BRENDA, Dev Attending Unavailable Town Doctor, Out of Primary Care Unavailable Brenda GUTIERREZ, Dev Attending Unavailable Town Doctor, Out of Primary Care Unavailable Brenda GUTIERREZ, Dev Attending Unavailable Town Doctor, Out of Primary Care Unavailable Town Doctor, Out of Primary Care Unavailable Rachele Velasquez Referring Unavailable Rachele Velasquez Attending Unavailable Town Doctor, Out of Primary Care Unavailable Deperro OLS, Dev Attending Unavailable Deperro OLS, Dev Attending Unavailable Town Doctor, Out of Primary Care Unavailable Town Doctor, Out of Primary Care Unavailable Deperro OLS, Dev Attending Unavailable Deperro OLS, Dev Attending Unavailable Town Doctor, Out of Primary Care Unavailable Deperro OLS, Dev Attending Unavailable Town Doctor, Out of Primary Care Unavailable Deperro OLS, Dev Attending Unavailable Town Doctor, Out of Primary Care Unavailable Deperro OLS, Dev Attending Unavailable Town Doctor, Out of Primary Care Unavailable Deperro OLS, Dev Attending Unavailable Town Doctor, Out of Primary Care Unavailable Deperro OLS, Dev Attending Unavailable Town Doctor, Out of Primary Care Unavailable Town Doctor, Out of Primary Care Unavailable Deperro OLS, Dev Attending Unavailable Deperro OLS, Dev Referring Unavailable Deperro OLS, Dev Attending Unavailable Town Doctor, Out of Primary Care Unavailable Deperro OLS, Dev Attending Unavailable Town Doctor, Out of Primary Care Unavailable Town Doctor, Out of Primary Care Unavailable Deperro OLS, Dev Attending Unavailable Deperro OLS, Dev Attending Unavailable Town Doctor, Out of Primary Care Unavailable Deperro OLS, Dev Attending Unavailable Town Doctor, Out of Primary Care Unavailable Brenda BALDWIN, Dev Referring Provider Unavailable Allergies Allergy Classification Reported Allergen(s) Allergy Type Date of Onset Reaction(s) Facility (9 sources) Cephalexin Drug Allergy 05-17-2015 Rash [facility] (1 source) Cephalexin Drug Allergy 05-17-2015 [facility] Repository Medications Current Medications Medication Drug Class(es) Dates Sig (Normalized) Sig (Original) allopurinol 300 mg oral tablet (20 sources) Xanthine Oxidase Inhibitor Start: 04-22-2015 End: 05-21-2015 take 1 tablet by mouth once daily Allopurinol 300 MG tablet Active 300 mg PO DAILY May 21, 2015 7:26pm Start: 04-06-2015 End: 04-09-2015 take 1 tablet by mouth once daily Allopurinol 300 MG tablet Discontinued 300 mg PO DAILY April 06, 2015 1:00am April 09, 2015 6:27pm ALPRAZolam 0.5 mg oral tablet (20 sources) Benzodiazepine Start: 04-22-2015 End: 05-21-2015 take 1 tablet by mouth three times daily as needed for anxiety Alprazolam 0.5 MG tablet Active 0.5 mg PO 3 TIMES DAILY NEEDED as needed for Anxiety 90 May 21, 2015 7:26pm Start: 04-09-2015 End: 04-13-2015 take 1 tablet by mouth three times daily as needed for anxiety Alprazolam 0.5 MG tablet Discontinued 0.5 mg PO 3 TIMES DAILY NEEDED as needed for ANXIETY 0 April 13, 2015 1:00am April 13, 2015 9:20am calcium carbonate 1250 mg oral tablet (9 sources) Start: 05-20-2015 Calcium Carbonate (Oyster Shell Calcium 500) 500 MG tablet Active 500 mg PO DAILY@0800 30 May 20, 2015 1:00am diphenhydrAMINE hydrochloride 25 mg oral capsule (18 sources) Histamine-1 Receptor Antagonist Start: 04-22-2015 apply 1 capsule topically every six hours as needed Diphenhydramine Hcl (Banophen) 25 MG capsule Active 25 mg PO EVERY 6 HOURS NEEDED as needed for Rash/Topical Irritation April 22, 2015 1:00am Start: 04-13-2015 End: 04-13-2015 apply 1 capsule topically twice daily as needed Diphenhydramine Hcl (Banophen) 25 MG capsule Discontinued 25 mg PO TWICE DAILY NEEDED as needed for RASH/TOPICAL IRRITATION 0 April 13, 2015 1:00am April 13, 2015 9:20am docusate calcium 240 mg oral capsule (18 sources) Start: 04-09-2015 End: 05-21-2015 take 1 capsule by mouth twice daily Docusate Calcium (Stool Softener (Docusate Ivan)) 240 MG capsule Active 240 mg PO TWICE A DAY 60 May 21, 2015 7:26pm 0.4 ml enoxaparin sodium 100 mg/ml prefilled syringe (18 sources) Low Molecular Weight Heparin Start: 04-22-2015 Enoxaparin 40 MG/0.4 ML syringe Active 30 mg SC DAILY@0600 April 22, 2015 1:00am Start: 04-09-2015 End: 04-13-2015 Enoxaparin 40 MG/0.4 ML syri nge Discontinued 40 mg SC DAILY@0600 April 09, 2015 1:00am April 13, 2015 8:53am start 04/10/15, continue for three weeks esomeprazole 40 mg delayed release oral capsule (9 sources) Proton Pump Inhibitor Start: 04-06-2015 take 1 capsule by mouth once daily Esomeprazole Magnesium (Nexium) 40 MG capsule Active 40 mg PO DAILY April 06, 2015 1:00am ferrous sulfate 325 mg oral tablet (20 sources) Start: 04-22-2015 End: 05-21-2015 take 1 tablet by mouth twice daily at mealtime Ferrous Sulfate (Iron (Ferrous Sulfate)) 325 MG tablet Active 325 mg PO TWICE DAILY WITH MEALS May 21, 2015 7:26pm Start: 04-09-2015 End: 04-13-2015 take 1 tablet by mouth twice daily at mealtime Ferrous Sulfate 325 MG tablet Discontinued 325 mg PO TWICE DAILY WITH MEALS April 09, 2015 1:00am April 13, 2015 8:56am levothyroxine sodium 0.175 mg oral tablet (18 sources) l-Thyroxine Start: 04-22-2015 End: 05-21-2015 take 1 tablet by mouth once daily Levothyroxine (Levoxyl) 175 MCG tablet Active 175 ug PO DAILY May 21, 2015 7:26pm lisinopril 5 mg oral tablet (18 sources) Angiotensin Converting Enzyme Inhibitor Start: 04-06-2015 End: 05-21-2015 take 1 tablet by mouth once daily Lisinopril 5 MG tablet Active 5 mg PO DAILY May 21, 2015 7:26pm morphine sulfate 30 mg extended release oral tablet (20 sources) Opioid Agonist Start: 05-20-2015 take 1 tablet by mouth twice daily Morphine 30 MG tablet Active 30 mg PO TWICE A DAY May 20, 2015 1:00am Start: 04-22-2015 Morphine 30 MG tablet Active 15 mg PO Q8H April 22, 2015 1:53pm Start: 04-09-2015 End: 04-22-2015 take 1 tablet by mouth twice daily Morphine 30 MG tablet Discontinued 30 mg PO TWICE A DAY April 09, 2015 1:00am April 22, 2015 1:53pm Start: 04-06-2015 End: 04-09-2015 take 20 mg by mouth twice daily Morphine Sulfate ER Di scontinued 20 mg PO TWICE A DAY April 06, 2015 1:00am April 09, 2015 6:28pm ondansetron 4 mg disintegrating oral tablet (18 sources) Serotonin-3 Receptor Antagonist Start: 04-22-2015 take 1 tablet by mouth every eight hours as needed for nausea Ondansetron 4 MG tablet Active 4 mg PO EVERY 8 HOURS NEEDED as needed for Nausea April 22, 2015 1:00am Start: 04-13-2015 End: 04-13-2015 take 1 tablet by mouth every eight hours as needed for nausea Ondansetron 4 MG tablet Discontinued 4 mg PO EVERY 8 HOURS NEEDED as needed for NAUSEA 0 April 13, 2015 1:00am April 13, 2015 9:21am potassium citrate 15 meq extended release oral tablet (9 sources) Start: 04-06-2015 Potassium Citrate (Urocit-K 15) 15 MEQ tablet extended release Active 10 meq PO TWICE A DAY April 06, 2015 1:00am venlafaxine 25 mg oral tablet (20 sources) Serotonin and Norepinephrine Reuptake Inhibitor Start: 04-09-2015 End: 05-21-2015 take 2 tablets by mouth twice daily Venlafaxine 25 MG tablet Active 50 mg PO TWICE A DAY 60 May 21, 2015 7:26pm Start: 04-07-2015 End: 04-09-2015 take 1 tablet by mouth twice daily Venlafaxine 37.5 MG tablet Discontinued 37.5 mg PO TWICE A DAY April 07, 2015 1:00am April 09, 2015 6:29pm zolpidem tartrate 5 mg oral tablet (20 sources) gamma-Aminobutyric Acid-ergic Agonist Start: 05-21-2015 take 2 tablets by mouth at bedtime as needed for sleep Zolpidem 5 MG tablet Active 10 mg PO AT BEDTIME NEEDED as needed for SLEEP 60 May 21, 2015 1:00am Start: 04-06-2015 End: 04-09-2015 take 1 tablet by mouth once daily Zolpidem (Ambien) 10 MG tablet Discontinued 10 mg PO DAILY April 09, 2015 6:32pm April 09, 2015 9:20pm Completed/Discontinued Medications Medication Drug Class(es) Dates Sig (Normalized) Sig (Original) acetaminophen 325 mg / oxyCODONE hydrochloride 10 mg oral tablet (9 sources) Opioid Agonist Start: 04-07-2015 End: 04-09-2015 Oxycodone-Acetaminop hen 1 EACH tablet Discontinued 1 {tbl} PO EVERY 8 HOURS NEEDED as needed for pain April 07, 2015 1:00am April 09, 2015 6:28pm calcium ascorbate 50 mg / ferrous asparto glycinate 50 mg / polysaccharide iron complex 100 mg / succinic acid 50 mg oral capsule (9 sources) Start: 04-13-2015 End: 04-13-2015 Iron Aspgl,Ps Complex-Vit C-Sa (Ferrex 150 Plus) 150 MG capsule Discontinued 150 mg PO DAILY WITH MEALS 0 April 13, 2015 1:00am April 13, 2015 9:21am ergocalciferol 1.25 mg oral capsule (20 sources) Provitamin D2 Compound Start: 04-06-2015 End: 05-21-2015 Ergocalciferol (Vitamin D2) (Vitamin D2) 50,000 UNIT capsule Discontinued 80156 U PO TU April 22, 2015 1:53pm May 21, 2015 7:27pm gabapentin enacarbil 600 mg extended release oral tablet (20 sources) Anti-epileptic Agent Start: 04-07-2015 End: 04-09-2015 Gabapentin Enacarbil (Horizant) 600 MG Tab.Er.24h Discontinued 600 mg PO April 07, 2015 1:00am April 09, 2015 6:28pm Start: 04-06-2015 End: 05-21-2015 take 1 tablet by mouth twice daily at mealtime Gabapentin 600 MG tablet Active 600 mg PO TWICE DAILY WITH MEALS 60 May 21, 2015 7:26pm linaclotide 0.145 mg oral capsule (9 sources) Guanylate Cyclase-C Agonist Start: 04-06-2015 End: 04-09-2015 take 1 capsule by mouth once daily Linaclotide (Linzess) 145 MCG capsule Discontinued 145 ug PO DAILY April 06, 2015 1:00am April 09, 2015 6:28pm oxyCODONE hydrochloride 5 mg oral tablet (20 sources) Opioid Agonist Start: 04-22-2015 End: 05-27-2015 take 3 tablets by mouth every four hours as needed for pain Oxycodone 5 MG tablet Discontinued 15 mg PO EVERY 4 HOURS NEEDED as needed for Pain May 20, 2015 10:14pm May 27, 2015 8:45am Start: 04-09-2015 End: 04-13-2015 take 3 tablets by mouth every four hours as needed for pain Oxycodone 5 MG tablet Discontinued 15 mg PO EVERY 4 HOURS NEEDED as needed for PAIN 0 April 13, 2015 1:00am April 13, 2015 9:21am risedronate sodium 150 mg oral tablet (9 sources) Start: 04-06-2015 End: 04-09-2015 take 1 tablet by mouth every month Risedronate (Actonel) 150 MG tablet Discontinued 150 mg PO EVERY MONTH April 06, 2015 1:00am April 09, 2015 6:33pm Problems Active Problems Problem Classification Problem Date Documented Date Episodic/Chronic Acute posthemorrhagic anemia (9 sources) Acute posthemorrhagic anemia; Translations: [Acute posthemorrhagic anemia] 04-09-2015 Episodic Comment on above: required PRBC's x1 Calculus of urinary tract (2 sources) Calculus of kidney; Translations: [Personal history of urinary calculi] Onset: 08-16-2024 Episodic Chronic kidney disease (2 sources) Chronic kidney disease; Translations: [Chronic kidney disease, stage 3 unspecified] Onset: 02-17-2024 Coagulation and hemorrhagic disorders (9 sources) Thrombocytopenic disorder; Translations: [Thrombocytopenia, unspecified] 04-06-2015 Chronic Deficiency and other anemia (2 sources) Anemia in chronic kidney disease; Translations: [Anemia in chronic kidney disease] Onset: 02-06-2024 Chronic Deficiency and other anemia (9 sources) Chronic anemia; Translations: [Anemia, unspecified] 04-09-2015 Episodic Diabetes mellitus without complication (1 source) Prediabetes; Translations: [Prediabetes] Onset: 08-16-2024 Episodic Disorders of lipid metabolism (1 source) Hyperlipidemia, unspecified; Translations: [Hyperlipidemia, unspecified] Onset: 10-17-2024 Chronic E Codes: Fall (9 sources) Fall; Translations: [Unspecified fall, initial encounter] 04-06-2015 Episodic Essential hypertension (9 sources) Hypertensive disorder; Translations: [Essential (primary) hypertension] 04-06-2015 Chronic Fracture of neck of femur (hip) (9 sources) Closed fracture of hip; Translations: [Fracture of unspecified part of neck of left femur, initial encounter for closed fracture] 04-06-2015 Episodic Genitourinary symptoms and ill-defined conditions (1 source) Mixed incontinence; Translations: [Mixed incontinence] Onset: 10-17-2024 Chronic Genitourinary symptoms and ill-defined conditions (2 sources) Personal history of urinary (tract) infections; Translations: [Personal history of urinary (tract) infections] Onset: 02-06-2024 Episodic Hypertension with complications and secondary hypertension (2 sources) Hypertensive heart and chronic kidney disease without heart failure, with stage 1 through stage 4 chronic kidney disease, or unspecified chronic kidney disease; Translations: [Hypertensive heart and chronic kidney disease without heart failure, with stage 1 through stage 4 chronic kidney disease, or unspecified chronic kidney disease] Onset: 07-11-2024 Chronic Other circulatory disease (1 source) Other specified peripheral vascular diseases; Translations: [Other specified peripheral vascular diseases] Onset: 02-17-2024 Chronic Other connective tissue disease (9 sources) Fibromyalgia; Translations: [Fibromyalgia] 04-06-2015 Episodic Other nervous system disorders (1 source) Idiopathic progressive neuropathy; Translations: [Idiopathic progressive neuropathy] Onset: 04-13-2024 Chronic Spondylosis; intervertebral disc disorders; other back problems (9 sources) Chronic back pain ; Translations: [Dorsalgia, unspecified] 04-06-2015 Episodic Thyroid disorders (11 sources) Hypothyroidism; Translations: [Hypothyroidism, unspecified] Onset: 05-30-2024 04-06-2015 Chronic Unclassified (1 source) Acute cough; Translations: [Acute cough] Onset: 09-28-2024 Past or Other Problems Problem Classification Problem Date Documented Da te Episodic/Chronic Deficiency and other anemia (1 source) Anemia, unspecified; Translations: [Anemia, unspecified] Onset: 05-18-2024 Episodic Fluid and electrolyte disorders (1 source) Hyperkalemia; Translations: [Hyperkalemia] Onset: 04-13-2024 Episodic Other nervous system disorders (1 source) Tremor, unspecified; Translations: [Tremor, unspecified] Onset: 04-13-2024 Episodic Urinary tract infections (1 source) Urinary tract infection, site not specified; Translations: [Urinary tract infection, site not specified] Onset: 06-25-2024 Episodic Results Test Name Value Interpretation Reference Range Facility TSH DL <= 0.005 mIU/L QnOrde red By: Dev Gutierrez on 09-24-2024 TSH Qn 6.110 uIU/mL High 0.300-4.200 [facility] Thyroid Stim Hormone (TSH)on 09-24-2024 TSH 6.110 uIU/mL High 0.300-4.200 [facility] Comment on above: Order Comment: 209-1 Performed By: #### L [id number], L501.9520, L100.0500 #### [facility] [address] [place], [address] Urine Cultureon 09-19-2024 [facility] Presumptive E. coli [place] Count >100,000 Presumptive E. coli: REACTION Ampicillin Islt PARMINDER <=2 Ampicillin+Sulbac Islt PARMINDER <=2 S Cefepime Islt PARMINDER <=0.12 S cefTRIAXone Islt PARMINDER <=0.25 S Ciprofloxacin Islt PARMINDER >=4 R B-Lactamase Extended Susc Islt NEG Gentamicin Islt PARMINDER <=1 S levoFLOXacin Islt PARMINDER >=8 R Meropenem Islt PARMINDER <=0.25 S Nitrofurantoin Islt PARMINDER <=16 S Pip+Tazo Islt PARMINDER <=4 S TMP SMX Islt PARMINDER <=20 S Normal [facility] Comment on above: Performed By: #### L 100.0500, L500.2500 #### [facility] [address] [facility] [place], [address] Anion gap in Serum or Plasma Ordered By: Dev Gutierrez on 09-17-2024 Anion gap [Moles/Vol] 10 mmol/L 5-15 [facility] BUN/creatinine ratioOrdered By: Dev Gutierrez on 09-17-2024 Urea nitrogen/Creatinine [Mass ratio] 22.4 mg/mg High [address] [place] [address] Basic Metabolic Profile (BMP )on 09-17-2024 BUN/CRE 22.4 RATIO High [address] [place] [address] Comment on above: Order Comment: Performed By: #### L 100.0500, L500.2500 #### [facility] [address] [place], [address] Calcium [Mass/Vol] 9.6 mg/dL Normal 7.6-11.0 [facility] Comment on above: Order Comment: Performed By: #### L 100.0500, L500.2500 #### [facility] [address] [place], [address] Chloride [Moles/Vol] 107 mmol/L Normal 98-108 [facility] Comment on above: Order Comment: Performed By: #### L 100.0500, L500.2500 #### [facility] [address] [place], [address] CO2 [Moles/Vol] 24.3 mmol/L Normal 21.0-32.0 [facility] Comment on above: Order Comment: Performed By: #### L 100.0500, L500.2500 #### [facility] [address] [place], [address] Creatinine [Mass/Vol] 1.14 mg/dL Normal 0.70-1.20 [facility] Comment on above: Order Comment: Performed By: #### L 100.0500, L500.2500 #### [facility] [address] [place], [address] GAP 10 Normal 5-15 [facility] Comment on above: Order Comment: Performed By: #### L 100.0500, L500.2500 #### [facility] [address] [place], [address] GFR/1.73 sq M.predicted among non-blacks MDRD (S/P/Bld) [Vol rate/Area] 48 mL/min/{1.73_m2} Low >60 [facility] Comment on above: Order Comment: Result Comment: mL/m in/1.73m2 CKD-EPI Creatinine Equation (2020) Performed By: #### L 100.0500, L500.2500 #### [facility] [address] [place], [address] Glucose [Mass/Vol] 98 mg/dL Normal 70-99 [facility] Comment on above: Order Comment: Performed By: #### L 100.0500, L500.2500 #### [facility] [address] [place], [address] Potassium [Moles/Vol] 4.3 mmol/L Normal 3.3-5.1 [facility] Comment on above: Order Comment: Performed By: #### L 100.0500, L500.2500 #### [facility] [address] [place], [address] Sodium [Moles/Vol] 141 mmol/L Normal 133-145 [facility] Comment on above: Order Comment: Performed By: #### L 100.0500, [id number] #### [facility] [address] [place], [address] Urea nitrogen [Mass/Vol] 26 mg/dL High 4-19 [facility] Comment on above: Order Comment: Performed By: #### L 100.0500, L500.2500 #### [facility] [address] [place], [address] CBC-Complete Blood Cnt No Di ffon 09-17-2024 Erythrocyte distribution width (RBC) [Ratio] 13.2 % Normal 11.6-14.6 [facility] Comment on above: Order Comment: Performed By: #### L 100.0500, L500.2500 #### [facility] [address] [place], [address] Hematocrit (Bld) [Volume fraction] 32.3 % Low 37-47 [facility] Comment on above: Order Comment: Performed By: #### L 100.0500, [id number] #### [facility] [address] [place], [address] Hemoglobin (Bld) [Mass/Vol] 10.7 g/dL Low 12.0-15.0 [facility] Comment on above: Order Comment: Performed By: #### L 100.0500, L500.2500 #### [facility] [address] [place], [address] MCH (RBC) [Entitic mass] 32.4 pg High 27.0-32.0 [facility] Comment on above: Order Comment: - Performed By: #### L 100.0500, [id number] #### [facility] [address] [place], [address] MCHC (RBC) [Mass/Vol] 33.1 g/dL Normal 32-36 [facility] Comment on above: Order Comment: - Performed By: #### L 100.0500, [id number] #### [facility] [address] [place], [address] MCV (RBC) [Entitic vol] 97.9 fL Normal 81-99 [facility] Comment on above: Order Comment: - Performed By: #### L 100.0500, L500.2500 #### [facility] [address] [place], [address] Platelet mean volume (Bld) [Entitic vol] 10.1 fL Normal 6.2-12.0 [facility] Comment on above: Order Comment: Performed By: #### L 100.0500, L500.2500 #### [facility] [address] [place], [address] Platelets (Bld) [#/Vol] 144 10*3/uL Low 150-450 [facility] Comment on above: Order Comment: - Performed By: #### L 100.0500, L500.2500 #### [facility] [address] [place], [address] RBC (Bld) [#/Vol] 3.30 10*6/uL Low 4.2-5.4 [facility] Comment on above: Order Comment: - Performed By: #### L 100.0500, [id number] #### [facility] [address] [place], [address] RDW SD 47.2 fl High 35.1-43.9 [facility] Comment on above: Order Comment: Performed By: #### L 100.0500, L500.2500 #### [facility] [address] [place], [address] WBC (Bld) [#/Vol] 5.1 10*3/uL Normal 4.4-11.0 [facility] Comment on above: Order Comment: Performed By: #### L 100.0500, [id number] #### [facility] [address] [place], [address] Carbon dioxide, total [Moles /volume] in Central venous bloodOrdered By: Dev Gutierrez on 09-17-2024 CO2 [Moles/Vol] 24.3 mmol/L 21.0-32.0 [facility] Chloride assayOrdered By: Morris on 09-17-2024 Chloride [Moles/Vol] 107 mmol/L 98-108 [facility] Erythrocyte distribution wid th ratioOrdered By: Dev Gutierrez on 09-17-2024 Erythrocyte distribution width (RBC) [Ratio] 13.2 % 11.6-14.6 [facility] Erythrocyte distribution wid th standard deviationOrdered By: Dev Gutierrez on 09-17-2024 Erythrocyte distribution width (RBC) [Ratio] 47.2 fl High 35.1-43.9 [facility] Glomerular filtration rate ( GFR) estimation/1.73 sq m using serum, plasma, or whole bOrdered By: Dev Gutierrez on 09-17-2024 GFR/1.73 sq M.predicted among non-blacks MDRD (S/P/Bld) [Vol rate/Area] 48 mL/min/{1.73_m2} Low >60 [facility] Comment on above: mL/min/1.73m2 CKD-EP I Creatinine Equation (2020) Hematocrit Auto (Bld) [Volum e fraction]Ordered By: Dev Gutierrez on 09-17-2024 Hematocrit (Bld) [Volume fraction] 32.3 % Low 37-47 [facility] Hemoglobin measurementOrdere d By: Dev Gutierrez on 09-17-2024 Hemoglobin (Bld) [Mass/Vol] 10.7 g/dL Low 12.0-15.0 [facility] MCV (mean corpuscular volume ) determinationOrdered By: Dev Gutierrez on 09-17-2024 MCV (RBC) [Entitic vol] 97.9 fL 81-99 [facility] Mean corpuscular hemoglobin (MCH) determinationOrdered By: eDv Gutierrez on 09-17-2024 MCH (RBC) [Entitic mass] 32.4 pg High 27.0-32.0 [facility] Mean corpuscular hemoglobin concentration (MCHC) determinationOrdered By: Dev Gutierrez on 09-17-2024 MCHC (RBC) [Mass/Vol] 33.1 g/dL 32-36 [facility] Mean platelet volume determi nationOrdered By: eDv Gutierrez on 09-17-2024 Platelet mean volume (Bld) [Entitic vol] 10.1 fL 6.2-12.0 [facility] Platelet countOrdered By: Morris on 09-17-2024 Platelets (Bld) [#/Vol] 144 10*3/uL Low 150-450 [facility] Potassium measurement (mass/ volume)Ordered By: Dev Gutierrez on 09-17-2024 Potassium (Unsp spec) [Mass/Vol] 4.3 mmol/L 3.3-5.1 [facility] RBC Auto (Bld) [#/Vol]Ordere d By: Dev Gutierrez on 09-17-2024 RBC (Bld) [#/Vol] 3.30 10*6/uL Low 4.2-5.4 [facility] Serum creatinine measurement (mass/volume)Ordered By: Dev Gutierrez on 09-17-2024 Creatinine [Mass/Vol] 1.14 mg/dL 0.70-1.20 [facility] Serum glucose measurement (m ass/volume)Ordered By: Dev Gutierrez on 09-17-2024 Glucose [Mass/Vol] 98 mg/dL 70-99 [facility] Serum or plasma calcium maude urement (mass/volume)Ordered By: Dev Gutierrez on 09-17-2024 Calcium [Mass/Vol] 9.6 mg/dL 7.6-11.0 [facility] Serum or plasma urea nitroge n measurement (mass/volume)Ordered By: Dev Gutierrez on 09-17-2024 Urea nitrogen [Mass/Vol] 26 mg/dL High 4-19 [facility] Sodium levelOrdered By: Dev Gutierrez on 09-17-2024 Sodium [Moles/Vol] 141 mmol/L 133-145 [facility] Urinalysis, Completeon 09-17 BACTERIA 1+ /hpf Normal None Seen [facility] Comment on above: Order Comment: Performed By: #### L 100.0500, L500.2500 #### [facility] [address] [place], [address] EPI,SQUAMOUS 0-5 SEEN Normal 5-10 [facility] Comment on above: Order Comment: Performed By: #### L 100.0500, L500.2500 #### [facility] [address] [place], [address] WBC 25-50 SEEN Normal 0-5 [facility] Comment on above: Order Comment: Performed By: #### L 100.0500, L500.2500 #### [facility] [address] [place], [address] Mucus Ql (Urine sed) 0 SEEN Normal [facility] Comment on above: Order Comment: Performed By: #### L 100.0500, L500.2500 #### [facility] [address] [place], [address] RBC 0 SEEN Normal 0-5 [facility] Comment on above: Order Comment: Performed By: #### L 100.0500, L500.2500 #### [facility] [address] [place], [address] White blood cell (WBC) count Ordered By: Dev Gutierrez on 09-17-2024 WBC (Bld) [#/Vol] 5.1 10*3/uL 4.4-11.0 [facility] Bilirubin Test strip Ql (U)O rdered By: Dev Gutierrez on 09-16-2024 Bilirubin Ql (U) Negative Negative [facility] Ketones Test strip Ql (U)Ord ered By: Dev Gutierrez on 09-16-2024 Ketones Ql (U) Negative Negative [facility] Microscopic analysis of urin e for red blood cells (RBC)Ordered By: Dev Gutierrez on 09-16-2024 Microscopic analysis of urine for red blood cells (RBC) 0 SEEN /hpf 0-5 [facility] Mucus LM Ql (Urine sed)Order ed By: Dev Gutierrez on 09-16-2024 Mucus Ql (Urine sed) 0 SEEN /hpf [facility] Nitrite Test strip Ql (U)Ord ered By: Dev Gutierrez on 09-16-2024 Nitrite Ql (U) Positive High Negative [facility] Protein Test strip Ql (U)Ord ered By: Dev Gutierrez on 09-16-2024 Protein Ql (U) 15 mg/dl High Negative [facility] Squamous epithelial cells de tection in urine sediment by light microscopyOrdered By: Dev Gutierrez on 09-16-2024 Epithelial cells.squamous LM Ql (Urine sed) 0-5 SEEN /hpf 5-10 [facility] Urine clarityOrdered By: Danielle Gutierrez on 09-16-2024 Clarity (U) Clear Clear [facility] Urine color determinationOrd ered By: Dev Gutierrez on 09-16-2024 Color (U) Yellow Yellow [facility] Urine cultureOrdered By: Danielle Gutierrez on 09-16-2024 Bacteria identified Cx Nom (U) Presumptive E. coli Abnormal [facility] Urine glucose detectionOrder ed By: Dev Gutierrez on 09-16-2024 Glucose Ql (U) Normal mg/dl Normal [facility] Urine leukocyte esterase det ection by dipstickOrdered By: Dev Gutierrez on 09-16-2024 Leukocyte esterase Test strip Ql (U) 500 /ul High Negative [facility] Urine pHOrdered By: Dev rodriguez on 09-16-2024 pH (U) 6.0 [pH] 5.0 - 8.0 [facility] Urine sediment bacteria coun t by microscopy (number/high power field)Ordered By: Dev Gutierrez on 09-16-2024 Bacteria LM.HPF (Urine sed) [#/Area] 1 /[HPF] None Seen [facility] Urine specific gravity measu rementOrdered By: Dev Gutierrez on 09-16-2024 Specific gravity (U) [Rel density] 1.010 1.002-1.030 [facility] Urine urobilinogen measureme ntOrdered By: Dev Gutierrez on 09-16-2024 Urobilinogen Ql (U) Normal mg/dl Normal [facility] White blood cell countOrdere d By: Dev Gutierrez on 09-16-2024 White blood cell count 25-50 SEEN /hpf 0-5 [facility] Serum or plasma uric acid me asurement (mass/volume)Ordered By: Dev Gutierrez on 09-11-2024 Urate [Mass/Vol] 3.0 mg/dL 2.6-6.0 [facility] Comment on above: The drugs N-Acetylcy steine and Metamizole may falsely depress this assay. Uric Acidon 09-11-2024 URIC 3.0 mg/dL Normal 2.6-6.0 [facility] Comment on above: Order Comment: 209-1 Result Comment: The drugs N-Acetylcysteine and Metamizole may falsely depress this assay. Performed By: #### L 500.4050, L501.9520, L100.0500 #### [facility] [address] [place], [address] Anion gap in Serum or Plasma Ordered By: Dev Gutierrez on 09-03-2024 Anion gap [Moles/Vol] 9 mmol/L 5-15 [facility] BUN/creatinine ratioOrdered By: Dev Gutierrez on 09-03-2024 Urea nitrogen/Creatinine [Mass ratio] 28.9 mg/mg High 10-20 [facility] Basic Metabolic Profile (BMP )on 09-03-2024 BUN/CRE 28.9 RATIO High 10-20 [facility] Comment on above: Order Comment: Performed By: #### L 100.0500, L500.2500 #### [facility] [address] [place], [address] Calcium [Mass/Vol] 9.4 mg/dL Normal 7.6-11.0 [facility] Comment on above: Order Comment: - Performed By: #### L 100.0500, L500.2500 #### [facility] [address] [place], [address] Chloride [Moles/Vol] 108 mmol/L Normal 98-108 [facility] Comment on above: Order Comment: Performed By: #### L 100.0500, L500.2500 #### [facility] [address] [place], [address] CO2 [Moles/Vol] 24.7 mmol/L Normal 21.0-32.0 [facility] Comment on above: Order Comment: Performed By: #### L 100.0500, L500.2500 #### [facility] [address] [place], [address] Creatinine [Mass/Vol] 1.08 mg/dL Normal 0.70-1.20 [facility] Comment on above: Order Comment: Performed By: #### L 100.0500, L500.2500 #### [facility] [address] [place], [address] GAP 9 Normal 5-15 [facility] Comment on above: Order Comment: Performed By: #### L 100.0500, L500.2500 #### [facility] [address] [place], [address] GFR/1.73 sq M.predicted among non-blacks MDRD (S/P/Bld) [Vol rate/Area] 51 mL/min/{1.73_m2} Low >60 [facility] Comment on above: Order Comment: Result Comment: mL/m in/1.73m2 CKD-EPI Creatinine Equation (2020) Performed By: #### L 100.0500, L500.2500 #### [facility] [address] [place], [address] Glucose [Mass/Vol] 109 mg/dL High 70-99 [facility] Comment on above: Order Comment: Performed By: #### L 100.0500, L500.2500 #### [facility] [address] [place], [address] Potassium [Moles/Vol] 4.3 mmol/L Normal 3.3-5.1 [facility] Comment on above: Order Comment: Performed By: #### L 100.0500, L500.2500 #### [facility] [address] [place], [address] Sodium [Moles/Vol] 142 mmol/L Normal 133-145 [facility] Comment on above: Order Comment: Performed By: #### L 100.0500, L500.2500 #### [facility] [address] [place], [address] Urea nitrogen [Mass/Vol] 31 mg/dL High 4-19 [facility] Comment on above: Order Comment: Performed By: #### L 100.0500, L500.2500 #### [facility] [address] [place], [address] CBC-Complete Blood Cnt No Di ffon 09-03-2024 Erythrocyte distribution width (RBC) [Ratio] 13.6 % Normal 11.6-14.6 [facility] Comment on above: Order Comment: Performed By: #### L 100.0500, L500.2500 #### [facility] [address] [place], [address] Hematocrit (Bld) [Volume fraction] 29.9 % Low 37-47 [facility] Comment on above: Order Comment: - Performed By: #### L 100.0500, L500.2500 #### [facility] [address] [place], [address] Hemoglobin (Bld) [Mass/Vol] 9.5 g/dL Low 12.0-15.0 [facility] Comment on above: Order Comment: Performed By: #### L 100.0500, L500.2500 #### [facility] [address] [place], [address] MCH (RBC) [Entitic mass] 31.0 pg Normal 27.0-32.0 [facility] Comment on above: Order Comment: Performed By: #### L 100.0500, L500.2500 #### [facility] [address] [place], [address] MCHC (RBC) [Mass/Vol] 31.8 g/dL Low 32-36 [facility] Comment on above: Order Comment: Performed By: #### L 100.0500, L500.2500 #### [facility] [address] [place], [address] MCV (RBC) [Entitic vol] 97.7 fL Normal 81-99 [facility] Comment on above: Order Comment: Performed By: #### L 100.0500, L500.2500 #### [facility] [address] [place], [address] Platelet mean volume (Bld) [Entitic vol] 10.3 fL Normal 6.2-12.0 [facility] Comment on above: Order Comment: Performed By: #### L 100.0500, L500.2500 #### [facility] [address] [place], [address] Platelets (Bld) [#/Vol] 145 10*3/uL Low 150-450 [facility] Comment on above: Order Comment: Performed By: #### L 100.0500, L500.2500 #### [facility] [address] [place], [address] RBC (Bld) [#/Vol] 3.06 10*6/uL Low 4.2-5.4 [facility] Comment on above: Order Comment: Performed By: #### L 100.0500, L500.2500 #### [facility] [address] [place], [address] RDW SD 48.5 fl High 35.1-43.9 [facility] Comment on above: Order Comment: Performed By: #### L 100.0500, L500.2500 #### [facility] [address] [place], [address] WBC (Bld) [#/Vol] 5.0 10*3/uL Normal 4.4-11.0 [facility] Comment on above: Order Comment: Performed By: #### L 100.0500, L500.2500 #### [facility] [address] [place], [address] Carbon dioxide, total [Moles /volume] in Central venous bloodOrdered By: Dev Gutierrez on 09-03-2024 CO2 [Moles/Vol] 24.7 mmol/L 21.0-32.0 [facility] Chloride assayOrdered By: Morris on 09-03-2024 Chloride [Moles/Vol] 108 mmol/L 98-108 [facility] Erythrocyte distribution wid th ratioOrdered By: Dev Gutierrez on 09-03-2024 Erythrocyte distribution width (RBC) [Ratio] 13.6 % 11.6-14.6 [facility] Erythrocyte distribution wid th standard deviationOrdered By: Dev Gutierrez on 09-03-2024 Erythrocyte distribution width (RBC) [Ratio] 48.5 fl High 35.1-43.9 [facility] Glomerular filtration rate ( GFR) estimation/1.73 sq m using serum, plasma, or whole bOrdered By: Dev Gutierrez on 09-03-2024 GFR/1.73 sq M.predicted among non-blacks MDRD (S/P/Bld) [Vol rate/Area] 51 mL/min/{1.73_m2} Low >60 [facility] Comment on above: mL/min/1.73m2 CKD-EP I Creatinine Equation (2020) Hematocrit Auto (Bld) [Volum e fraction]Ordered By: Dev Gutierrez on 09-03-2024 Hematocrit (Bld) [Volume fraction] 29.9 % Low 37-47 [facility] Hemoglobin measurementOrdere d By: Dev Gutierrez on 09-03-2024 Hemoglobin (Bld) [Mass/Vol] 9.5 g/dL Low 12.0-15.0 [facility] Influenza virus A and B and SARS-CoV-2 (COVID-19) and Respiratory syncytial virus RNAOrdered By: Dev Gutierrez on 09-03-2024 SARS-CoV-2 (COVID-19) RNA MARLO+probe Ql (Unsp spec) [facility] M100.678on 09-03-2024 M100.678 Pending SARS-CoV-2 (COVID 19) Negative INFLUENZA A Negative INFLUENZA B Negative RSV PCR Negative Normal [facility] Comment on above: Performed By: #### L 100.0500, L500.2500 #### [facility] [address] [place], [place], [address] MCV (mean corpuscular volume ) determinationOrdered By: Dve Gutierrez on 09-03-2024 MCV (RBC) [Entitic vol] 97.7 fL 81-99 [facility] Mean corpuscular hemoglobin (MCH) determinationOrdered By: Dev Gutierrez on 09-03-2024 MCH (RBC) [Entitic mass] 31.0 pg 27.0-32.0 [facility] Mean corpuscular hemoglobin concentration (MCHC) determinationOrdered By: Dev Gutierrez on 09-03-2024 MCHC (RBC) [Mass/Vol] 31.8 g/dL Low 32-36 [facility] Mean platelet volume determi nationOrdered By: Dev Gutierrez on 09-03-2024 Platelet mean volume (Bld) [Entitic vol] 10.3 fL 6.2-12.0 [facility] Platelet countOrdered By: Morris on 09-03-2024 Platelets (Bld) [#/Vol] 145 10*3/uL Low 150-450 [facility] Potassium measurement (mass/ volume)Ordered By: Dev Gutierrez on 09-03-2024 Potassium (Unsp spec) [Mass/Vol] 4.3 mmol/L 3.3-5.1 [facility] RBC Auto (Bld) [#/Vol]Ordere d By: Dev Gutierrez on 09-03-2024 RBC (Bld) [#/Vol] 3.06 10*6/uL Low 4.2-5.4 [facility] Serum creatinine measurement (mass/volume)Ordered By: Dev Gutierrez on 09-03-2024 Creatinine [Mass/Vol] 1.08 mg/dL 0.70-1.20 [facility] Serum glucose measurement (m ass/volume)Ordered By: Dev Gutierrez on 09-03-2024 Glucose [Mass/Vol] 109 mg/dL High 70-99 [facility] Serum or plasma calcium maude urement (mass/volume)Ordered By: Dev Gutierrez on 09-03-2024 Calcium [Mass/Vol] 9.4 mg/dL 7.6-11.0 [facility] Serum or plasma urea nitroge n measurement (mass/volume)Ordered By: Dev Gutierrez on 09-03-2024 Urea nitrogen [Mass/Vol] 31 mg/dL High 4-19 [facility] Sodium levelOrdered By: Dev Gutierrez on 09-03-2024 Sodium [Moles/Vol] 142 mmol/L 133-145 [facility] White blood cell (WBC) count Ordered By: Dev Gutierrez on 09-03-2024 WBC (Bld) [#/Vol] 5.0 10*3/uL 4.4-11.0 [facility] Anion gap in Serum or Plasma Ordered By: Jack Rutledge on 08-13-2024 Anion gap [Moles/Vol] 11 mmol/L 5-15 [facility] BUN/creatinine ratioOrdered By: Jack Rutledge on 08-13-2024 Urea nitrogen/Creatinine [Mass ratio] 26.2 mg/mg High 10-20 [facility] Bilirubin, totalOrdered By: Jack Rutledge on 08-13-2024 Bilirubin [Mass/Vol] 1.12 mg/dL 0.00-1.30 [facility] CBC-Complete Blood Cnt No Di ffon 08-13-2024 Erythrocyte distribution width (RBC) [Ratio] 14.3 % Normal 11.6-14.6 [facility] Comment on above: Order Comment: Performed By: #### L 500.4050, L501.9520, L100.0500 #### [facility] [address] [place], [address] Hematocrit (Bld) [Volume fraction] 29.7 % Low 37-47 [facility] Comment on above: Order Comment: Performed By: #### L 500.4050, L501.9520, L100.0500 #### [facility] [address] [place], [address] Hemoglobin (Bld) [Mass/Vol] 9.9 g/dL Low 12.0-15.0 [facility] Comment on above: Order Comment: Performed By: #### L 500.4050, L501.9520, L100.0500 #### [facility] [address] [place], [address] MCH (RBC) [Entitic mass] 32.7 pg High 27.0-32.0 [facility] Comment on above: Order Comment: Performed By: #### L 500.4050, L501.9520, L100.0500 #### [facility] [address] [place], [address] MCHC (RBC) [Mass/Vol] 33.3 g/dL Normal 32-36 [facility] Comment on above: Order Comment: Performed By: #### L 500.4050, L501.9520, L100.0500 #### [facility] [address] [place], [address] MCV (RBC) [Entitic vol] 98.0 fL Normal 81-99 [facility] Comment on above: Order Comment: Performed By: #### L 500.4050, L501.9520, L100.0500 #### [facility] [address] [place], [address] Platelet mean volume (Bld) [Entitic vol] 10.0 fL Normal 6.2-12.0 [facility] Comment on above: Order Comment: Performed By: #### L 500.4050, L501.9520, L100.0500 #### [facility] [address] [place], [address] Platelets (Bld) [#/Vol] 149 10*3/uL Low 150-450 [facility] Comment on above: Order Comment: Performed By: #### L 500.4050, L501.9520, L100.0500 #### [facility] [address] [place], [address] RBC (Bld) [#/Vol] 3.03 10*6/uL Low 4.2-5.4 [facility] Comment on above: Order Comment: Performed By: #### L 500.4050, L501.9520, L100.0500 #### [facility] [address] [place], [address] RDW SD 50.4 fl High 35.1-43.9 [facility] Comment on above: Order Comment: - Performed By: #### L 500.4050, L501.9520, L100.0500 #### [facility] [address] [place], [address] WBC (Bld) [#/Vol] 4.7 10*3/uL Normal 4.4-11.0 [facility] Comment on above: Order Comment: Performed By: #### L 500.4050, L501.9520, L100.0500 #### [facility] [address] [place], [address] Carbon dioxide, total [Moles /volume] in Central venous bloodOrdered By: Jack Rutledge on 08-13-2024 CO2 [Moles/Vol] 22.4 mmol/L 21.0-32.0 [facility] Chloride assayOrdered By: Shauna Rutledge on 08-13-2024 Chloride [Moles/Vol] 107 mmol/L 98-108 [facility] Comprehensive Metabolic Prof ilon 08-13-2024 Albumin [Mass/Vol] 3.8 g/dL Normal 3.4-4.8 [facility] Comment on above: Order Comment: Performed By: #### L 500.4050, L501.9520, L100.0500 #### [facility] [address] [place], [address] Albumin/Globulin [Mass ratio] 1.6 {ratio} Normal 0.9-2.4 [facility] Comment on above: Order Comment: Performed By: #### L 500.4050, L501.9520, L100.0500 #### [facility] [address] [place], [address] ALK PHOS 79 U/L Normal 35-104 [facility] Comment on above: Order Comment: Performed By: #### L 500.4050, L501.9520, L100.0500 #### [facility] [address] [place], [address] ALT [Catalytic activity/Vol] 18 U/L Normal <=34 [facility] Comment on above: Order Comment: - Performed By: #### L 500.4050, L501.9520, L100.0500 #### [facility] [address] [place], [address] AST [Catalytic activity/Vol] 27 U/L Normal <=31 [facility] Comment on above: Order Comment: - Performed By: #### L 500.4050, L501.9520, L100.0500 #### [facility] [address] [place], [address] Bilirubin [Mass/Vol] 1.12 mg/dL Normal 0.00-1.30 [facility] Comment on above: Order Comment: Performed By: #### L 500.4050, L501.9520, L100.0500 #### [facility] [address] [place], [address] BUN/CRE 26.2 RATIO High 10-20 [facility] Comment on above: Order Comment: Performed By: #### L 500.4050, L501.9520, L100.0500 #### [facility] [address] [place], [address] Calcium [Mass/Vol] 9.3 mg/dL Normal 7.6-11.0 [facility] Comment on above: Order Comment: - Performed By: #### L 500.4050, L501.9520, L100.0500 #### [facility] [address] [place], [address] Chloride [Moles/Vol] 107 mmol/L Normal 98-108 [facility] Comment on above: Order Comment: - Performed By: #### L 500.4050, L501.9520, L100.0500 #### [facility] [address] [place], [address] CO2 [Moles/Vol] 22.4 mmol/L Normal 21.0-32.0 [facility] Comment on above: Order Comment: Performed By: #### L 500.4050, L501.9520, L100.0500 #### [facility] [address] [place], [address] Creatinine [Mass/Vol] 1.06 mg/dL Normal 0.70-1.20 [facility] Comment on above: Order Comment: Performed By: #### L 500.4050, L501.9520, L100.0500 #### [facility] [address] [place], [address] GAP 11 Normal 5-15 [facility] Comment on above: Order Comment: Performed By: #### L 500.4050, L501.9520, L100.0500 #### [facility] [address] [place], [address] GFR/1.73 sq M.predicted among non-blacks MDRD (S/P/Bld) [Vol rate/Area] 52 mL/min/{1.73_m2} Low >60 [facility] Comment on above: Order Comment: Result Comment: mL/m in/1.73m2 CKD-EPI Creatinine Equation (2020) Performed By: #### L 500.4050, L501.9520, L100.0500 #### [facility] [address] [place], [address] Globulin (S) [Mass/Vol] 2.3 g/dL Normal 2.2-4.2 [facility] Comment on above: Order Comment: Performed By: #### L 500.4050, L501.9520, L100.0500 #### [facility] [address] [place], [address] Glucose [Mass/Vol] 94 mg/dL Normal 70-99 [facility] Comment on above: Order Comment: - Performed By: #### L 500.4050, L501.9520, L100.0500 #### [facility] [address] [place], [address] Potassium [Moles/Vol] 4.1 mmol/L Normal 3.3-5.1 [facility] Comment on above: Order Comment: - Performed By: #### L 500.4050, L501.9520, L100.0500 #### [facility] [address] [place], [address] Sodium [Moles/Vol] 140 mmol/L Normal 133-145 [facility] Comment on above: Order Comment: - Performed By: #### L 500.4050, L501.9520, L100.0500 #### [facility] [address] [place], [address] T PROT 6.1 g/dL Normal 5.9-8.4 [facility] Comment on above: Order Comment: - Performed By: #### L 500.4050, L501.9520, L100.0500 #### [facility] [address] [place], [address] Urea nitrogen [Mass/Vol] 28 mg/dL High 4-19 [facility] Comment on above: Order Comment: - Performed By: #### L 500.4050, L501.9520, L100.0500 #### [facility] [address] [place], [address] Erythrocyte distribution wid th (RBC) [Ratio]Ordered By: Jack Rutledge on 08-13-2024 Erythrocyte distribution width (RBC) [Entitic vol] 50.4 fL High 35.1-43.9 [facility] Erythrocyte distribution wid th ratioOrdered By: Jack Rutledge on 08-13-2024 Erythrocyte distribution width (RBC) [Ratio] 14.3 % 11.6-14.6 [facility] Erythrocyte distribution wid th standard deviationOrdered By: Jack Rutledge on 08-13-2024 Erythrocyte distribution width (RBC) [Ratio] 50.4 fl High 35.1-43.9 [facility] GFR/1.73 sq M.predicted tyler g non-blacks MDRD (S/P/Bld) [Vol rate/Area]Ordered By: Jack Rutledge on 08-13-2024 Estimated GFR (MDRD) Non-Af Amer 52 Low >60 [facility] Comment on above: mL/min/1.73m2 CKD-EP I Creatinine Equation (2020) Glomerular filtration rate ( GFR) estimation/1.73 sq m using serum, plasma, or whole bOrdered By: Jack Rutledge on 08-13-2024 GFR/1.73 sq M.predicted among non-blacks MDRD (S/P/Bld) [Vol rate/Area] 52 mL/min/{1.73_m2} Low >60 [facility] Comment on above: mL/min/1.73m2 CKD-EP I Creatinine Equation (2020) Hematocrit Auto (Bld) [Volum e fraction]Ordered By: Jack Rutledge on 08-13-2024 Hematocrit (Bld) [Volume fraction] 29.7 % Low 37-47 [facility] Hemoglobin measurementOrdere d By: Jack Rutledge on 08-13-2024 Hemoglobin (Bld) [Mass/Vol] 9.9 g/dL Low 12.0-15.0 [facility] L503.0106on 08-13-2024 Cobalamin (Vitamin B12) [Mass/Vol] 744 pg/mL Normal 180-914 [facility] Comment on above: Order Comment: 209-1 Performed By: #### L 500.4050, L501.9520, L100.0500 #### [facility] [address] [place], [address] Laboratory - Chemistry and C hemistry - challengeOrdered By: Jack Rutledge on 08-13-2024 AST [Catalytic activity/Vol] 27 U/L <32 [facility] MCV (mean corpuscular volume ) determinationOrdered By: Jack Rutledge on 08-13-2024 MCV (RBC) [Entitic vol] 98.0 fL 81-99 [facility] Mean corpuscular hemoglobin (MCH) determinationOrdered By: Jack Rutledge on 08-13-2024 MCH (RBC) [Entitic mass] 32.7 pg High 27.0-32.0 [facility] Mean corpuscular hemoglobin concentration (MCHC) determinationOrdered By: Jack Rutledge on 08-13-2024 MCHC (RBC) [Mass/Vol] 33.3 g/dL 32-36 [facility] Mean platelet volume determi nationOrdered By: Jack Rutledge on 08-13-2024 Platelet mean volume (Bld) [Entitic vol] 10.0 fL 6.2-12.0 [facility] Platelet countOrdered By: Shauna Rutledge on 08-13-2024 Platelets (Bld) [#/Vol] 149 10*3/uL Low 150-450 [facility] Potassium (Unsp spec) [Mass/ Vol]Ordered By: Jack Rutledge on 08-13-2024 Potassium [Moles/Vol] 4.1 mmol/L 3.3-5.1 [facility] Potassium measurement (mass/ volume)Ordered By: Jack Rutledge on 08-13-2024 Potassium (Unsp spec) [Mass/Vol] 4.1 mmol/L 3.3-5.1 [facility] RBC Auto (Bld) [#/Vol]Ordere d By: Jack Rutledge on 08-13-2024 RBC (Bld) [#/Vol] 3.03 10*6/uL Low 4.2-5.4 [facility] Serum creatinine measurement (mass/volume)Ordered By: Jack Rutledge on 08-13-2024 Creatinine [Mass/Vol] 1.06 mg/dL 0.70-1.20 [facility] Serum globulin measurementOr dered By: Jack Rutledge on 08-13-2024 Globulin (S) [Mass/Vol] 2.3 g/dL 2.2-4.2 [facility] Serum glucose measurement (m ass/volume)Ordered By: Jack Rutledge on 08-13-2024 Glucose [Mass/Vol] 94 mg/dL 70-99 [facility] Serum or plasma alanine tovar otransferase (ALT) measurementOrdered By: Jack Rutledge on 08-13-2024 ALT [Catalytic activity/Vol] 18 U/L <35 [facility] Serum or plasma albumin maude urement (mass/volume)Ordered By: Jack Rutledge on 08-13-2024 Albumin [Mass/Vol] 3.8 g/dL 3.4-4.8 [facility] Serum or plasma albumin/glob ulin mass ratioOrdered By: Jack Rutledge on 08-13-2024 Albumin/Globulin [Mass ratio] 1.6 {ratio} 0.9-2.4 [facility] Serum or plasma alkaline nilton sphatase measurementOrdered By: Jack Rutledge on 08-13-2024 ALP [Catalytic activity/Vol] 79 U/L 35-104 [facility] Serum or plasma calcium maude urement (mass/volume)Ordered By: Jakc Rutledge on 08-13-2024 Calcium [Mass/Vol] 9.3 mg/dL 7.6-11.0 [facility] Serum or plasma urea nitroge n measurement (mass/volume)Ordered By: Jack Rutledge on 08-13-2024 Urea nitrogen [Mass/Vol] 28 mg/dL High 4-19 [facility] Sodium levelOrdered By: Nando Rutledge on 08-13-2024 Sodium [Moles/Vol] 140 mmol/L 133-145 [facility] TSH DL <= 0.005 mIU/L QnOrde red By: Jack Rutledge on 08-13-2024 Thyroid Stimulating Hormone (TSH) 9.140 uIU/mL High 0.300-4.200 [facility] TSH Qn 9.140 uIU/mL High 0.300-4.200 [facility] Thyroid Stim Hormone (TSH)on 08-13-2024 TSH 9.140 uIU/mL High 0.300-4.200 [facility] Comment on above: Order Comment: 209-1 Performed By: #### L 500.6553, L501.7873, L100.0500 #### [facility] [address] [place], [id number] Total proteinOrdered By: Balwinder Rutledge on 08-13-2024 Protein [Mass/Vol] 6.1 g/dL 5.9-8.4 [facility] Vitamin B12 ser/plasOrdered By: Jack Rutledge on 08-13-2024 Cobalamin (Vitamin B12) [Mass/Vol] 744 pg/mL 180-914 [facility] White blood cell (WBC) count Ordered By: Jack Rutledge on 08-13-2024 WBC (Bld) [#/Vol] 4.7 10*3/uL 4.4-11.0 [facility] Vitamin B12 ser/plasOrdered By: Dev Gutierrez on 07-30-2024 Cobalamin (Vitamin B12) [Mass/Vol] 802 pg/mL Normal 180-914 [facility] Comment on above: Order Comment: 209-1 Performed By: #### L 500.4050, L501.9520, L100.0500 #### [facility] [address] [place], [address] Urine Cultureon 07-26-2024 [facility] Presumptive E. coli Eastman Count >100,000 Presumptive E. coli: REACTION Ampicillin Islt PARMINDER <=2 Ampicillin+Sulbac Islt PARMINDER <=2 S Cefepime Islt PARMINDER <=0.12 S cefTRIAXone Islt PARMINDER <=0.25 S Ciprofloxacin Islt PARMINDER >=4 R B-Lactamase Extended Susc Islt NEG Gentamicin Islt PARMINDER <=1 S levoFLOXacin Islt PARMINDER >=8 R Meropenem Islt PARMINDER <=0.25 S Nitrofurantoin Islt PARMINDER <=16 S Pip+Tazo Islt PARMINDER <=4 S TMP SMX Islt PARMINDER <=20 S Normal [facility] Comment on above: Performed By: #### L 100.0500 #### [facility] [address] [place], [address] Bilirubin Test strip Ql (U)O rdered By: Dev Gutierrez on 07-24-2024 Bilirubin Ql (U) Negative Negative [facility] Epithelial cells.squamous LM Ql (Urine sed)Ordered By: Dev Gutierrez on 07-24-2024 Epithelial cells.squamous LM.HPF (Urine sed) [#/Area] 0 /[HPF] 5-10 [facility] Glucose Ql (U)Ordered By: Morris on 07-24-2024 Urine Glucose (UA) Normal mg/dl Normal [facility] Ketones Test strip Ql (U)Ord ered By: Dev Gutierrez on 07-24-2024 Ketones Ql (U) Negative Negative [facility] Microscopic analysis of urin e for red blood cells (RBC)Ordered By: Dev Gutierrez on 07-24-2024 Microscopic analysis of urine for red blood cells (RBC) 0 SEEN /hpf 0-5 [facility] Urine RBC 0 SEEN /hpf 0-5 [facility] Mucus LM Ql (Urine sed)Order ed By: Dev Gutierrez on 07-24-2024 Mucus Ql (Urine sed) 0 SEEN /hpf [facility] Nitrite Test strip Ql (U)Ord ered By: Dev Gutierrez on 07-24-2024 Nitrite Ql (U) Positive High Negative [facility] Protein Test strip Ql (U)Ord ered By: Dev Gutierrez on 07-24-2024 Protein Ql (U) 30 mg/dl High Negative [facility] Squamous epithelial cells de tection in urine sediment by light microscopyOrdered By: Dev Gutierrez on 07-24-2024 Epithelial cells.squamous LM Ql (Urine sed) 0-5 SEEN /hpf -10 [facility] Urinalysis, Completeon 07-24 BACTERIA 4+ /hpf Normal None Seen [facility] Comment on above: Order Comment: Performed By: #### L 100.0500 #### [facility] [address] [place], [place], [id number] EPI,SQUAMOUS 0-5 SEEN Normal 5-10 [facility] Comment on above: Order Comment: Performed By: #### L 100.0500 #### [facility] [address] [place], [address] RBC 0 SEEN Normal 0-5 [facility] Comment on above: Order Comment: Performed By: #### L 100.0500 #### [facility] [address] [place], [address] WBC 25-50 SEEN Normal 0-5 [facility] Comment on above: Order Comment: Performed By: #### L 100.0500 #### [facility] [address] [place], [address] Mucus Ql (Urine sed) 0 SEEN Normal [facility] Comment on above: Order Comment: Performed By: #### L 100.0500 #### [facility] [address] [place], [place], [id number] Urine blood detectionOrdered By: Dev Gutierrez on 07-24-2024 Urine Occult Blood Negative Negative [facility] Urine clarityOrdered By: Danielle Gutierrez on 07-24-2024 Clarity (U) Clear Clear [facility] Urine color determinationOrd ered By: Dev Gutierrez on 07-24-2024 Color (U) Yellow Yellow [facility] Urine cultureOrdered By: Danielle Gutierrez on 07-24-2024 Bacteria identified Cx Nom (U) Presumptive E. coli Abnormal [facility] Urine glucose detectionOrder ed By: Dev Gutierrez on 07-24-2024 Glucose Ql (U) Normal mg/dl Normal [facility] Urine leukocyte esterase det ection by dipstickOrdered By: Dev Gutierrez on 07-24-2024 Leukocyte esterase Test strip Ql (U) 500 /ul High Negative [facility] Urine pHOrdered By: Dev rodriguez on 07-24-2024 pH (U) 6.0 [pH] 5.0 - 8.0 [facility] Urine sediment bacteria coun t by microscopy (number/high power field)Ordered By: Dev Gutierrez on 07-24-2024 Bacteria LM.HPF (Urine sed) [#/Area] 4 /[HPF] None Seen [facility] Urine specific gravity measu rementOrdered By: Dev Gutierrez on 07-24-2024 Specific gravity (U) [Rel density] 1.015 1.002-1.030 [facility] Urine urobilinogen measureme ntOrdered By: Dev Gutierrez on 07-24-2024 Urobilinogen Ql (U) Normal mg/dl Normal [facility] Urobilinogen Ql (U)Ordered B y: Dev Gutierrez on 07-24-2024 Urine Urobilinogen Normal mg/dl Normal [facility] White blood cell countOrdere d By: Dev Gutierrez on 07-24-2024 Urine WBC 25-50 SEEN /hpf 0-5 [facility] White blood cell count 25-50 SEEN /hpf 0-5 [facility] Urine Cultureon 07-14-2024 [facility] Presumptive E. coli Eastman Count >100,000 Presumptive E. coli: REACTION Ampicillin Islt PARMINDER <=2 Ampicillin+Sulbac Islt PARMINDER <=2 S Cefepime Islt PARMINDER <=0.12 S cefTRIAXone Islt PARMINDER <=0.25 S Ciprofloxacin Islt PARMINDER >=4 R B-Lactamase Extended Susc Islt NEG Gentamicin Islt PARMINDER <=1 S levoFLOXacin Islt PARMINDER >=8 R Meropenem Islt PARMINDER <=0.25 S Nitrofurantoin Islt PARMINDER <=16 S Pip+Tazo Islt PARMINDER <=4 S TMP SMX Islt PARMINDER <=20 S Normal [facility] Comment on above: Performed By: #### L 100.0500 #### [facility] [address] [place], [address] Urinalysis, Completeon 07-12 RBC 0 SEEN Normal 0-5 [facility] Comment on above: Order Comment: Performed By: #### L 100.0500 #### [facility] [address] [place], [place], [id number] BUN/creatinine ratioOrdered By: Dev Gutierrez on 07-11-2024 Urea nitrogen/Creatinine [Mass ratio] 23.3 mg/mg High 10-20 [facility] Bilirubin Test strip Ql (U)O rdered By: Dev Gutierrez on 07-11-2024 Bilirubin Ql (U) Negative Negative [facility] Bilirubin, totalOrdered By: Dev Gutierrez on 07-11-2024 Bilirubin [Mass/Vol] 0.65 mg/dL 0.00-1.30 [facility] CBC-Complete Blood Cnt No Di ffon 07-11-2024 Erythrocyte distribution width (RBC) [Ratio] 14.6 % Normal 11.6-14.6 [facility] Comment on above: Order Comment: - Performed By: #### L 100.0500 #### [facility] [address] [place], [address] Hematocrit (Bld) [Volume fraction] 29.6 % Low 37-47 [facility] Comment on above: Order Comment: Performed By: #### L 100.0500 #### [facility] [address] [place], [address] Hemoglobin (Bld) [Mass/Vol] 10.1 g/dL Low 12.0-15.0 [facility] Comment on above: Order Comment: Performed By: #### L 100.0500 #### [facility] [address] [place], [address] MCH (RBC) [Entitic mass] 32.7 pg High 27.0-32.0 [facility] Comment on above: Order Comment: Performed By: #### L 100.0500 #### [facility] [address] [place], [address] MCHC (RBC) [Mass/Vol] 34.1 g/dL Normal 32-36 [facility] Comment on above: Order Comment: Performed By: #### L 100.0500 #### [facility] [address] [place], [address] MCV (RBC) [Entitic vol] 95.8 fL Normal 81-99 [facility] Comment on above: Order Comment: - Performed By: #### L 100.0500 #### [facility] [address] [place], [address] Platelet mean volume (Bld) [Entitic vol] 9.6 fL Normal 6.2-12.0 [facility] Comment on above: Order Comment: Performed By: #### L 100.0500 #### [facility] [address] [place], [address] Platelets (Bld) [#/Vol] 176 10*3/uL Normal 150-450 [facility] Comment on above: Order Comment: Performed By: #### L 100.0500 #### [facility] [address] [place], [address] RBC (Bld) [#/Vol] 3.09 10*6/uL Low 4.2-5.4 [facility] Comment on above: Order Comment: Performed By: #### L 100.0500 #### [facility] [address] [place], [address] RDW SD 48.5 fl High 35.1-43.9 [facility] Comment on above: Order Comment: Performed By: #### L 100.0500 #### [facility] [address] [place], [address] WBC (Bld) [#/Vol] 7.2 10*3/uL Normal 4.4-11.0 [facility] Comment on above: Order Comment: Performed By: #### L 100.0500 #### [facility] [address] [place], [address] Carbon dioxide measurementOr dered By: Dev Gutierrez on 07-11-2024 CO2 [Moles/Vol] 21.1 mmol/L Low 22.0-29.0 [facility] Chloride measurementOrdered By: Dev Gutierrez on 02-26-2025 Chloride [Moles/Vol] 109 mmol/L High 96-108 [facility] Comprehensive Metabolic Prof ilon 07-11-2024 Albumin [Mass/Vol] 3.7 g/dL Normal 3.4-4.8 [facility] Comment on above: Order Comment: - Performed By: #### L 100.0500 #### [facility] [address] [place], [address] Albumin/Globulin [Mass ratio] 1.8 {ratio} Normal 0.9-2.4 [facility] Comment on above: Order Comment: - Performed By: #### L 100.0500 #### [facility] [address] [place], [address] ALK PHOS 82 U/L Normal 35-104 [facility] Comment on above: Order Comment: - Performed By: #### L 100.0500 #### [facility] [address] [place], [address] ALT [Catalytic activity/Vol] 13 U/L Normal <=34 [facility] Comment on above: Order Comment: - Performed By: #### L 100.0500 #### [facility] [address] [place], [address] Anion gap [Moles/Vol] 11 mmol/L Normal 5-15 [facility] Comment on above: Order Comment: - Performed By: #### L 100.0500 #### [facility] [address] [place], [address] AST [Catalytic activity/Vol] 21 U/L Normal <=31 [facility] Comment on above: Order Comment: - Performed By: #### L 100.0500 #### [facility] [address] [place], [address] Bilirubin [Mass/Vol] 0.65 mg/dL Normal 0.00-1.30 [facility] Comment on above: Order Comment: 209-1 Performed By: #### L 100.0500 #### [facility] [address] [place], [address] BUN/CRE 23.3 RATIO High 10-20 [facility] Comment on above: Order Comment: Performed By: #### L 100.0500 #### [facility] [address] [place], [address] Calcium [Mass/Vol] 8.9 mg/dL Normal 7.6-11.0 [facility] Comment on above: Order Comment: Performed By: #### L 100.0500 #### [facility] [address] [place], [address] Chloride [Moles/Vol] 109 mmol/L High 96-108 [facility] Comment on above: Order Comment: Performed By: #### L 100.0500 #### [facility] [address] [place], [address] CO2 [Moles/Vol] 21.1 mmol/L Low 22.0-29.0 [facility] Comment on above: Order Comment: Performed By: #### L 100.0500 #### [facility] [address] [place], [address] Creatinine [Mass/Vol] 0.9 mg/dL Normal 0.6-1.0 [facility] Comment on above: Order Comment: Performed By: #### L 100.0500 #### [facility] [address] [place], [address] GFR/1.73 sq M.predicted among non-blacks MDRD (S/P/Bld) [Vol rate/Area] 61 mL/min/{1.73_m2} Normal >60 [facility] Comment on above: Order Comment: Result Comment: mL/m in/1.73m2 CKD-EPI Creatinine Equation (2020) Performed By: #### L 100.0500 #### [facility] [address] [place], [address] Globulin (S) [Mass/Vol] 2.1 g/dL Low 2.2-4.2 [facility] Comment on above: Order Comment: Performed By: #### L 100.0500 #### [facility] [address] [place], [address] Glucose [Mass/Vol] 96 mg/dL Normal 70-99 [facility] Comment on above: Order Comment: Performed By: #### L 100.0500 #### [facility] [address] [place], [address] Potassium [Moles/Vol] 3.7 mmol/L Normal 3.3-5.1 [facility] Comment on above: Order Comment: Performed By: #### L 100.0500 #### [facility] [address] [place], [address] Sodium [Moles/Vol] 141 mmol/L Normal 133-145 [facility] Comment on above: Order Comment: Performed By: #### L 100.0500 #### [facility] [address] [place], [address] T PROT 5.7 g/dL Low 5.9-8.4 [facility] Comment on above: Order Comment: Performed By: #### L 100.0500 #### [facility] [address] [place], [address] Urea nitrogen [Mass/Vol] 22 mg/dL High 4-19 [facility] Comment on above: Order Comment: Performed By: #### L 100.0500 #### [facility] [address] [place], [address] Creatinine [Moles/Vol]Ordere d By: Dev Gutierrez on 07-11-2024 Creatinine [Mass/Vol] 0.9 mg/dL 0.6-1.0 [facility] Epithelial cells.squamous LM Ql (Urine sed)Ordered By: Dev Gutierrez on 07-11-2024 Epithelial cells.squamous LM.HPF (Urine sed) [#/Area] 0 /[HPF] 5-10 [facility] Erythrocyte distribution wid th (RBC) [Ratio]Ordered By: Dev Gutierrez on 07-11-2024 Erythrocyte distribution width (RBC) [Entitic vol] 48.5 fL High 35.1-43.9 [facility] Erythrocyte distribution wid th ratioOrdered By: Dev Gutierrez on 07-11-2024 Erythrocyte distribution width (RBC) [Ratio] 14.6 % 11.6-14.6 [facility] Erythrocyte distribution wid th standard deviationOrdered By: Dev Gutierrez on 07-11-2024 Erythrocyte distribution width (RBC) [Ratio] 48.5 fl High 35.1-43.9 [facility] GFR/1.73 sq M.predicted tyler g non-blacks MDRD (S/P/Bld) [Vol rate/Area]Ordered By: Dev Gutierrez on 07-11-2024 Estimated GFR (MDRD) Non-Af Amer 61 >60 [facility] Comment on above: mL/min/1.73m2 CKD-EP I Creatinine Equation (2020) Glomerular filtration rate ( GFR) estimation/1.73 sq m using serum, plasma, or whole bOrdered By: Dev Gutierrez on 07-11-2024 GFR/1.73 sq M.predicted among non-blacks MDRD (S/P/Bld) [Vol rate/Area] 61 mL/min/{1.73_m2} >60 [facility] Comment on above: mL/min/1.73m2 CKD-EP I Creatinine Equation (2020) Glucose Ql (U)Ordered By: Morris on 07-11-2024 Urine Glucose (UA) Normal mg/dl Normal [facility] Hematocrit Auto (Bld) [Volum e fraction]Ordered By: Dev Gutierrez on 07-11-2024 Hematocrit (Bld) [Volume fraction] 29.6 % Low 37-47 [facility] Hemoglobin measurementOrdere d By: Dev Gutierrez on 07-11-2024 Hemoglobin (Bld) [Mass/Vol] 10.1 g/dL Low 12.0-15.0 [facility] Ketones Test strip Ql (U)Ord ered By: Dev Gutierrez on 07-11-2024 Ketones Ql (U) Negative Negative [facility] - Chemistry and C hemistry - challengeOrdered By: Dev Gutierrez on 07-11-2024 AST [Catalytic activity/Vol] 21 U/L <32 [facility] MCV (mean corpuscular volume ) determinationOrdered By: Dev Gutierrez on 07-11-2024 MCV (RBC) [Entitic vol] 95.8 fL 81-99 [facility] Mean corpuscular hemoglobin (MCH) determinationOrdered By: Dev Gutierrez on 07-11-2024 MCH (RBC) [Entitic mass] 32.7 pg High 27.0-32.0 [facility] Mean corpuscular hemoglobin concentration (MCHC) determinationOrdered By: Dev Gutierrez on 07-11-2024 MCHC (RBC) [Mass/Vol] 34.1 g/dL 32-36 [facility] Mean platelet volume determi nationOrdered By: Dev Gutierrez on 07-11-2024 Platelet mean volume (Bld) [Entitic vol] 9.6 fL 6.2-12.0 [facility] Microscopic analysis of urin e for red blood cells (RBC)Ordered By: Dev Gutierrez on 07-11-2024 Microscopic analysis of urine for red blood cells (RBC) 0 SEEN /hpf 0-5 [facility] Urine RBC 0 SEEN /hpf 0-5 [facility] Mucus LM Ql (Urine sed)Order ed By: Dev Gutierrez on 07-11-2024 Mucus Ql (Urine sed) 0 SEEN /hpf [facility] Nitrite Test strip Ql (U)Ord ered By: Dev Gutierrez on 07-11-2024 Nitrite Ql (U) Positive High Negative [facility] Platelet countOrdered By: Morris on 07-11-2024 Platelets (Bld) [#/Vol] 176 10*3/uL 150-450 [facility] Protein Test strip Ql (U)Ord ered By: Dev Gutierrez on 07-11-2024 Protein Ql (U) 15 mg/dl High Negative [facility] RBC Auto (Bld) [#/Vol]Ordere d By: Dev Gutierrez on 07-11-2024 RBC (Bld) [#/Vol] 3.09 10*6/uL Low 4.2-5.4 [facility] Serum globulin measurementOr dered By: Dev Gutierrez on 07-11-2024 Globulin (S) [Mass/Vol] 2.1 g/dL Low 2.2-4.2 [facility] Serum glucose measurement (m ass/volume)Ordered By: Dev Gutierrez on 07-11-2024 Glucose [Mass/Vol] 96 mg/dL 70-99 [facility] Serum or plasma alanine tovar otransferase (ALT) measurementOrdered By: Dev Gutierrez on 07-11-2024 ALT [Catalytic activity/Vol] 13 U/L <35 [facility] Serum or plasma albumin maude urement (mass/volume)Ordered By: Dev Gutierrez on 07-11-2024 Albumin [Mass/Vol] 3.7 g/dL 3.4-4.8 [facility] Serum or plasma albumin/glob ulin mass ratioOrdered By: Dev Gutierrez on 07-11-2024 Albumin/Globulin [Mass ratio] 1.8 {ratio} 0.9-2.4 [facility] Serum or plasma alkaline nilton sphatase measurementOrdered By: Dev Gutierrez on 07-11-2024 ALP [Catalytic activity/Vol] 82 U/L 35-104 [facility] Serum or plasma anion gap de termination (moles/volume)Ordered By: Dev Gutierrez on 07-11-2024 Anion gap [Moles/Vol] 11 mmol/L 5-15 [facility] Serum or plasma calcium maude urement (mass/volume)Ordered By: Dev Gutierrez on 07-11-2024 Calcium [Mass/Vol] 8.9 mg/dL 7.6-11.0 [facility] Serum or plasma creatinine m easurement (moles/volume)Ordered By: Dev Gutierrez on 07-11-2024 Creatinine [Moles/Vol] 0.9 mg/dL 0.6-1.0 [facility] Serum or plasma potassium me asurementOrdered By: Dev Gutierrez on 07-11-2024 Potassium [Moles/Vol] 3.7 mmol/L 3.3-5.1 [facility] Serum or plasma sodium measu rement (moles/volume)Ordered By: Dev Gutierrez on 07-11-2024 Sodium [Moles/Vol] 141 mmol/L 133-145 [facility] Serum or plasma urea nitroge n measurement (mass/volume)Ordered By: Dev Gutierrez on 07-11-2024 Urea nitrogen [Mass/Vol] 22 mg/dL High 4-19 [facility] Squamous epithelial cells de tection in urine sediment by light microscopyOrdered By: Dev Gutierrez on 07-11-2024 Epithelial cells.squamous LM Ql (Urine sed) 0 SEEN /hpf 5-10 [facility] Total proteinOrdered By: Danielle Gutierrez on 07-11-2024 Protein [Mass/Vol] 5.7 g/dL Low 5.9-8.4 [facility] Urine blood detectionOrdered By: Dev Gutierrez on 07-11-2024 Urine Occult Blood Negative Negative [facility] Urine clarityOrdered By: Danielle Gutierrez on 07-11-2024 Clarity (U) Sl. Cloudy Clear [facility] Urine color determinationOrd ered By: Dev Gutierrez on 07-11-2024 Color (U) Yellow Yellow [facility] Urine cultureOrdered By: Danielle Gutierrez on 07-11-2024 Bacteria identified Cx Nom (U) Presumptive E. coli Abnormal [facility] Urine glucose detectionOrder ed By: Dev Gutierrez on 07-11-2024 Glucose Ql (U) Normal mg/dl Normal [facility] Urine leukocyte esterase det ection by dipstickOrdered By: Dev Gutierrez on 07-11-2024 Leukocyte esterase Test strip Ql (U) 100 /ul High Negative [facility] Urine pHOrdered By: Dev rodriguez on 07-11-2024 pH (U) 6.5 [pH] 5.0 - 8.0 [facility] Urine sediment bacteria coun t by microscopy (number/high power field)Ordered By: Dev Gutierrez on 07-11-2024 Bacteria LM.HPF (Urine sed) [#/Area] 1 /[HPF] None Seen [facility] Urine specific gravity measu rementOrdered By: Dev Gutierrez on 07-11-2024 Specific gravity (U) [Rel density] 1.010 1.002-1.030 [facility] Urine urobilinogen measureme ntOrdered By: Dev Gutierrez on 07-11-2024 Urobilinogen Ql (U) Normal mg/dl Normal [facility] Urobilinogen Ql (U)Ordered B y: Dev Gutierrez on 07-11-2024 Urine Urobilinogen Normal mg/dl Normal [facility] White blood cell (WBC) count Ordered By: Dev Gutierrez on 07-11-2024 WBC (Bld) [#/Vol] 7.2 10*3/uL 4.4-11.0 [facility] White blood cell countOrdere d By: Dev Gutierrez on 07-11-2024 Urine WBC 5-10 SEEN /hpf 0-5 [facility] White blood cell count 5-10 SEEN /hpf 0-5 [facility] Basic Metabolic Profile (BMP )on 07-06-2024 BUN/CRE 18.7 RATIO Normal 10-20 [facility] Comment on above: Order Comment: Performed By: #### L 500.4050, L501.9520, L100.0500 #### [facility] [address] [place], [address] CA,Total 9.3 mg/dL Normal 8.5-10.1 [facility] Comment on above: Order Comment: Performed By: #### L 500.4050, L501.9520, L100.0500 #### [facility] [address] [place], [address] EST GFR - AA 63 mL/min Normal >60 [facility] Comment on above: Order Comment: Result Comment: Afri can Ivorian GFR Calc Performed By: #### L 500.4050, L501.9520, L100.0500 #### [facility] [address] [place], [address] GAP 5 Normal 5-15 [facility] Comment on above: Order Comment: Performed By: #### L [id number], L501.9520, L100.0500 #### [facility] [address] [place], [address] Blood urea nitrogen (BUN)/cr eatinine ratioOrdered By: Dev Gutierrez on 07-06-2024 Urea nitrogen/Creatinine [Mass ratio] 18.7 mg/mg 10-20 [facility] Carbon dioxide measurementOr dered By: Dev Gutierrez on 07-06-2024 CO2 [Moles/Vol] 23.0 mmol/L Normal 21.0-32.0 [facility] Comment on above: Order Comment: Performed By: #### L [id number], L501.9520, L100.0500 #### [facility] [address] [place], [address] Chloride measurementOrdered By: Dev Gutierrez on 07-06-2024 Chloride [Moles/Vol] 114 mmol/L High 98-107 [facility] Comment on above: Order Comment: Performed By: #### L [id number], L501.9520, L100.0500 #### [facility] [address] [place], [address] Estimated glomerular filtrat ion rate (GFR) AmericanOrdered By: Dev Gutierrez on 07-06-2024 Estimated GFR (MDRD) Amer 63 mL/min >60 [facility] Comment on above: GFR Calc Glomerular filtration rate ( GFR) estimationOrdered By: Dev Gutierrez on 07-06-2024 Estimated GFR (MDRD) Non-Af Amer 52 mL/min Low >60 [facility] Comment on above: Non- GFR Calc GFR/1.73 sq M.predicted among non-blacks MDRD (S/P/Bld) [Vol rate/Area] 52 mL/min/{1.73_m2} Low >60 [facility] Comment on above: Non- GFR Calc Order Comment: Result Comment: Non- GFR Calc Performed By: #### L [id number], L501.9520, L100.0500 #### [facility] [address] [place], [address] Glucose measurementOrdered B y: Dev Gutierrez on 07-06-2024 Glucose [Mass/Vol] 112 mg/dL High 74-106 [facility] Comment on above: Fasting Glucose resu lt from 100 to 125 mg/dL suggests IMPAIRED HOMEOSTASIS per A.D.A. criteria. Order Comment: Result Comment: Fast ing Glucose result from 100 to 125 mg/dL suggests IMPAIRED HOMEOSTASIS per A.D.A. criteria. Performed By: #### L [id number], L501.9520, L100.0500 #### [facility] [address] [place], [address] Potassium measurementOrdered By: Dev Gutierrez on 07-06-2024 Potassium [Moles/Vol] 3.8 mmol/L Normal 3.5-5.1 [facility] Comment on above: Order Comment: Performed By: #### L [id number], L501.9520, L100.0500 #### [facility] [address] [place], [address] Serum anion gap measurementO rdered By: Dev Gutierrez on 07-06-2024 Anion gap [Moles/Vol] 5 mmol/L 5-15 [facility] Serum or plasma calcium maude urement (mass/volume)Ordered By: Dev Gutierrez on 07-06-2024 Calcium [Mass/Vol] 9.3 mg/dL 8.5-10.1 [facility] Serum or plasma creatinine m easurement (mass/volume)Ordered By: Dev Gutierrez on 07-06-2024 Creatinine [Mass/Vol] 1.07 mg/dL High 0.55-1.02 [facility] Comment on above: The validity of the calculated GFR & GFRAA in patients over 70 years has not been determined. Clinical correlation is essential. Order Comment: Result Comment: The validity of the calculated GFR GFRAA in patients over 70 years has not been determined. Clinical correlation is essential. Performed By: #### L [id number], L501.9520, L100.0500 #### [facility] [address] [place], [address] Serum or plasma urea nitroge n measurement (mass/volume)Ordered By: Dev Gutierrez on 07-06-2024 Urea nitrogen [Mass/Vol] 20 mg/dL High 7-18 [facility] Comment on above: Order Comment: Performed By: #### L [id number], L501.9520, L100.0500 #### [facility] [address] [place], [address] Sodium levelOrdered By: Dev Gutierrez on 07-06-2024 Sodium [Moles/Vol] 142 mmol/L Normal 136-145 [facility] Comment on above: Order Comment: Performed By: #### L [id number], L501.9520, L100.0500 #### [facility] [address] [place], [address] Albumin to globulin ratioOrd ered By: Dev Gutierrez on 07-02-2024 Albumin/Globulin [Mass ratio] 1.0 {ratio} 0.9-2.4 [facility] Bilirubin, totalOrdered By: Dev Gutierrez on 07-02-2024 Bilirubin [Mass/Vol] 1.20 mg/dL High 0.20-1.00 [facility] Comment on above: For patients on eltr ombopag therapy, use of Dimension [place] TBIL is not recommended. Blood urea nitrogen (BUN)/cr eatinine ratioOrdered By: Dev Gutierrez on 07-02-2024 Urea nitrogen/Creatinine [Mass ratio] 21.5 mg/mg High 10-20 [facility] CBC-Complete Blood Cnt No Di ffon 07-02-2024 Erythrocyte distribution width (RBC) [Ratio] 14.4 % Normal 11.6-14.6 [facility] Comment on above: Order Comment: - Performed By: #### L 100.0500 #### [facility] [address] [place], [address] Hematocrit (Bld) [Volume fraction] 31.5 % Low 37-47 [facility] Comment on above: Order Comment: - Performed By: #### L 100.0500 #### [facility] [address] [place], [address] Hemoglobin (Bld) [Mass/Vol] 9.9 g/dL Low 12.0-15.0 [facility] Comment on above: Order Comment: - Performed By: #### L 100.0500 #### [facility] [address] [place], [address] MCH (RBC) [Entitic mass] 30.2 pg Normal 27.0-32.0 [facility] Comment on above: Order Comment: - Performed By: #### L 100.0500 #### [facility] [address] [place], [address] MCHC (RBC) [Mass/Vol] 31.4 g/dL Low 32-36 [facility] Comment on above: Order Comment: - Performed By: #### L 100.0500 #### [facility] [address] [place], [address] MCV (RBC) [Entitic vol] 96.0 fL Normal 81-99 [facility] Comment on above: Order Comment: - Performed By: #### L 100.0500 #### [facility] [address] [place], [address] Platelet mean volume (Bld) [Entitic vol] 10.2 fL Normal 6.2-12.0 [facility] Comment on above: Order Comment: Performed By: #### L 100.0500 #### [facility] [address] [place], [address] Platelets (Bld) [#/Vol] 143 10*3/uL Low 150-450 [facility] Comment on above: Order Comment: Performed By: #### L 100.0500 #### [facility] [address] [place], [address] RBC (Bld) [#/Vol] 3.28 10*6/uL Low 4.2-5.4 [facility] Comment on above: Order Comment: Performed By: #### L 100.0500 #### [facility] [address] [place], [address] RDW SD 50.4 fl High 35.1-43.9 [facility] Comment on above: Order Comment: Performed By: #### L 100.0500 #### [facility] [address] [place], [address] WBC (Bld) [#/Vol] 4.8 10*3/uL Normal 4.4-11.0 [facility] Comment on above: Order Comment: Performed By: #### L 100.0500 #### [facility] [address] [place], [address] Carbon dioxide measurementOr dered By: Dev Gutierrez on 07-02-2024 CO2 [Moles/Vol] 19.0 mmol/L Low 21.0-32.0 [facility] Chloride measurementOrdered By: Dev Gutierrez on 07-02-2024 Chloride [Moles/Vol] 110 mmol/L High 98-107 [facility] Comprehensive Metabolic Prof ilon 07-02-2024 Albumin [Mass/Vol] 3.1 g/dL Low 3.2-5.0 [facility] Comment on above: Order Comment: Performed By: #### L 100.0500 #### [facility] [address] [place], [address] Albumin/Globulin [Mass ratio] 1.0 {ratio} Normal 0.9-2.4 [facility] Comment on above: Order Comment: Performed By: #### L 100.0500 #### [facility] [address] [place], [address] ALK P 68 U/L Normal 45-117 [facility] Comment on above: Order Comment: Performed By: #### L 100.0500 #### [facility] [address] [place], [address] ALT [Catalytic activity/Vol] 20 U/L Normal 13-56 [facility] Comment on above: Order Comment: Performed By: #### L 100.0500 #### [facility] [address] [place], [address] AST [Catalytic activity/Vol] 22 U/L Normal 15-37 [facility] Comment on above: Order Comment: Performed By: #### L 100.0500 #### [facility] [address] [place], [address] Bilirubin [Mass/Vol] 1.20 mg/dL High 0.20-1.00 [facility] Comment on above: Order Comment: Result Comment: For patients on eltrombopag therapy, use of Dimension [place] TBIL is not recommended. Performed By: #### L 100.0500 #### [facility] [address] [place], [address] BUN/CRE 21.5 RATIO High 10-20 [facility] Comment on above: Order Comment: Performed By: #### L 100.0500 #### [facility] [address] [place], [address] CA,Total 8.6 mg/dL Normal 8.5-10.1 [facility] Comment on above: Order Comment: Performed By: #### L 100.0500 #### [facility] [address] [place], [address] Chloride [Moles/Vol] 110 mmol/L High 98-107 [facility] Comment on above: Order Comment: Performed By: #### L 100.0500 #### [facility] [address] [place], [address] CO2 [Moles/Vol] 19.0 mmol/L Low 21.0-32.0 [facility] Comment on above: Order Comment: Performed By: #### L 100.0500 #### [facility] [address] [place], [address] Creatinine [Mass/Vol] 1.44 mg/dL High 0.55-1.02 [facility] Comment on above: Order Comment: Result Comment: The validity of the calculated GFR GFRAA in patients over 70 years has not been determined. Clinical correlation is essential. Performed By: #### L 100.0500 #### [facility] [address] [place], [address] EST GFR - AA 45 mL/min Low >60 [facility] Comment on above: Order Comment: Result Comment: Afri can Ivorian GFR Calc Performed By: #### L 100.0500 #### [facility] [address] [place], [address] GAP 11 Normal 5-15 [facility] Comment on above: Order Comment: Performed By: #### L 100.0500 #### [facility] [address] [place], [address] GFR/1.73 sq M.predicted among non-blacks MDRD (S/P/Bld) [Vol rate/Area] 37 mL/min/{1.73_m2} Low >60 [facility] Comment on above: Order Comment: Result Comment: Non- GFR Calc Performed By: #### L 100.0500 #### [facility] [address] [place], [address] Globulin (S) [Mass/Vol] 3.2 g/dL Normal 2.2-4.2 [facility] Comment on above: Order Comment: Performed By: #### L 100.0500 #### [facility] [address] [place], [address] Glucose [Mass/Vol] 95 mg/dL Normal 74-106 [facility] Comment on above: Order Comment: Performed By: #### L 100.0500 #### [facility] [address] [place], [address] Potassium [Moles/Vol] 3.3 mmol/L Low 3.5-5.1 [facility] Comment on above: Order Comment: Performed By: #### L 100.0500 #### [facility] [address] [place], [address] Sodium [Moles/Vol] 139 mmol/L Normal 136-145 [facility] Comment on above: Order Comment: Performed By: #### L 100.0500 #### [facility] [address] [place], [address] T PROT 6.3 g/dL Low 6.4-8.2 [facility] Comment on above: Order Comment: Performed By: #### L 100.0500 #### [facility] [address] [place], [address] Urea nitrogen [Mass/Vol] 31 mg/dL High 7-18 [facility] Comment on above: Order Comment: Performed By: #### L 100.0500 #### [facility] [address] [place], [address] Erythrocyte distribution wid th (RBC) [Ratio]Ordered By: Dev Gutierrez on 07-02-2024 Erythrocyte distribution width (RBC) [Entitic vol] 50.4 fL High 35.1-43.9 [facility] Erythrocyte distribution wid th ratioOrdered By: Dev Gutierrez on 07-02-2024 Erythrocyte distribution width (RBC) [Ratio] 14.4 % 11.6-14.6 [facility] Erythrocyte distribution wid th standard deviationOrdered By: Dev Gutierrez on 07-02-2024 Erythrocyte distribution width (RBC) [Ratio] 50.4 fl High 35.1-43.9 [facility] Estimated glomerular filtrat ion rate (GFR) AmericanOrdered By: Dev Gutierrez on 07-02-2024 Estimated GFR (MDRD) Amer 45 mL/min Low >60 [facility] Comment on above: GFR Calc Glomerular filtration rate ( GFR) estimationOrdered By: Dev Gutierrez on 07-02-2024 Estimated GFR (MDRD) Non-Af Amer 37 mL/min Low >60 [facility] Comment on above: Non- GFR Calc GFR/1.73 sq M.predicted among non-blacks MDRD (S/P/Bld) [Vol rate/Area] 37 mL/min/{1.73_m2} Low >60 [facility] Comment on above: Non- GFR Calc Glucose measurementOrdered B y: Dev Gutierrez on 07-02-2024 Glucose [Mass/Vol] 95 mg/dL 74-106 [facility] Hematocrit Auto (Bld) [Volum e fraction]Ordered By: Dev Gutierrez on 07-02-2024 Hematocrit (Bld) [Volume fraction] 31.5 % Low 37-47 [facility] Hemoglobin measurementOrdere d By: Dev Gutierrez on 07-02-2024 Hemoglobin (Bld) [Mass/Vol] 9.9 g/dL Low 12.0-15.0 [facility] - Chemistry and C hemistry - challengeOrdered By: Dev Gutierrez on 07-02-2024 AST [Catalytic activity/Vol] 22 U/L 15-37 [facility] MCV (mean corpuscular volume ) determinationOrdered By: Dev Gutierrez on 07-02-2024 MCV (RBC) [Entitic vol] 96.0 fL 81-99 [facility] Mean corpuscular hemoglobin (MCH) determinationOrdered By: Dev Gutierrez on 07-02-2024 MCH (RBC) [Entitic mass] 30.2 pg 27.0-32.0 [facility] Mean corpuscular hemoglobin concentration (MCHC) determinationOrdered By: Dev Gutierrez on 07-02-2024 MCHC (RBC) [Mass/Vol] 31.4 g/dL Low 32-36 [facility] Mean platelet volume determi nationOrdered By: Dev Gutierrez on 07-02-2024 Platelet mean volume (Bld) [Entitic vol] 10.2 fL 6.2-12.0 [facility] Platelet countOrdered By: Morris on 07-02-2024 Platelets (Bld) [#/Vol] 143 10*3/uL Low 150-450 [facility] Potassium measurementOrdered By: Dev Gutierrez on 07-02-2024 Potassium [Moles/Vol] 3.3 mmol/L Low 3.5-5.1 [facility] RBC Auto (Bld) [#/Vol]Ordere d By: Dev Gutierrez on 07-02-2024 RBC (Bld) [#/Vol] 3.28 10*6/uL Low 4.2-5.4 [facility] Serum anion gap measurementO rdered By: Dev Gutierrez on 07-02-2024 Anion gap [Moles/Vol] 11 mmol/L 5-15 [facility] Serum globulin measurementOr dered By: Dev Gutierrez on 07-02-2024 Globulin (S) [Mass/Vol] 3.2 g/dL 2.2-4.2 [facility] Serum or plasma alanine tovar otransferase (ALT) measurementOrdered By: Dev Gutierrez on 07-02-2024 ALT [Catalytic activity/Vol] 20 U/L 13-56 [facility] Serum or plasma albumin maude urement (mass/volume)Ordered By: Dev Gutierrez on 07-02-2024 Albumin [Mass/Vol] 3.1 g/dL Low 3.2-5.0 [facility] Serum or plasma alkaline nilton sphatase measurementOrdered By: Dev Gutierrez on 07-02-2024 ALP [Catalytic activity/Vol] 68 U/L 45-117 [facility] Serum or plasma calcium maude urement (mass/volume)Ordered By: Dev Gutierrez on 07-02-2024 Calcium [Mass/Vol] 8.6 mg/dL 8.5-10.1 [facility] Serum or plasma creatinine m easurement (mass/volume)Ordered By: Dev Gutierrez on 07-02-2024 Creatinine [Mass/Vol] 1.44 mg/dL High 0.55-1.02 [facility] Comment on above: The validity of the calculated GFR & GFRAA in patients over 70 years has not been determined. Clinical correlation is essential. Serum or plasma thyroid stim ulating hormone (TSH) measurement (units/volume)Ordered By: Dev Gutierrez on 07-02-2024 TSH Qn 5.820 uIU/mL High 0.358-3.740 [facility] Serum or plasma urea nitroge n measurement (mass/volume)Ordered By: Dev Gutierrez on 07-02-2024 Urea nitrogen [Mass/Vol] 31 mg/dL High 7-18 [facility] Sodium levelOrdered By: Dev Gutierrez on 07-02-2024 Sodium [Moles/Vol] 139 mmol/L 136-145 [facility] TSH QnOrdered By: Dev [place] on 07-02-2024 Thyroid Stimulating Hormone (TSH) 5.820 uIU/mL High 0.358-3.740 [facility] Thyroid Stim Hormone (TSH)on 07-02-2024 TSH 5.820 uIU/mL High 0.358-3.740 [facility] Comment on above: Order Comment: Performed By: #### L 100.0500 #### [facility] [address] [place], [address] Total proteinOrdered By: Danielle Gutierrez on 07-02-2024 Protein [Mass/Vol] 6.3 g/dL Low 6.4-8.2 [facility] Vitamin B12on 07-02-2024 Cobalamin (Vitamin B12) [Mass/Vol] 1871 pg/mL High 211-911 [facility] Comment on above: Order Comment: Performed By: #### L 100.0500 #### [facility] [address] [place], [address] Vitamin B12 measurementOrder ed By: Dev Gutierrez on 07-02-2024 Cobalamin (Vitamin B12) [Mass/Vol] 1871 pg/mL High 211-911 [facility] White blood cell (WBC) count Ordered By: Dev Gutierrez on 07-02-2024 WBC (Bld) [#/Vol] 4.8 10*3/uL 4.4-11.0 [facility] Albumin to globulin ratioOrd ered By: Dev Gutierrez on 05-21-2024 Albumin/Globulin [Mass ratio] 1.1 {ratio} Normal 0.9-2.4 [facility] Comment on above: Order Comment: Performed By: #### L 500.4050, L501.9520, L100.0500 #### [facility] [address] [place], [address] Automated blood erythrocyte countOrdered By: Dev Gutierrez on 05-21-2024 RBC (Bld) [#/Vol] 3.11 10*6/uL Low 4.2-5.4 [facility] Comment on above: Order Comment: Performed By: #### L 500.4050, L501.9520, L100.0500 #### [facility] [address] [place], [address] Automated blood hematocrit ( percentage)Ordered By: Dev Gutierrez on 05-21-2024 Hematocrit (Bld) [Volume fraction] 30.1 % Low 37-47 [facility] Comment on above: Order Comment: Performed By: #### L 500.4050, L501.9520, L100.0500 #### [facility] [address] [place], [address] Bilirubin, totalOrdered By: Dev Gutierrez on 05-21-2024 Bilirubin [Mass/Vol] 1.00 mg/dL Normal 0.20-1.00 [facility] Comment on above: For patients on eltr ombopag therapy, use of Dimension [place] TBIL is not recommended. Order Comment: Result Comment: For patients on eltrombopag therapy, use of Dimension [place] TBIL is not recommended. Performed By: #### L 500.4050, L501.9520, L100.0500 #### [facility] [address] [place], [address] Blood urea nitrogen (BUN)/cr eatinine ratioOrdered By: Dev Gutierrez on 05-21-2024 Urea nitrogen/Creatinine [Mass ratio] 27.1 mg/mg High 10-20 [facility] CBC-Complete Blood Cnt No Di ffon 05-21-2024 RDW SD 48.4 fl High 35.1-43.9 [facility] Comment on above: Order Comment: Performed By: #### L 500.4050, L501.9520, L100.0500 #### [facility] [address] [place], [address] Carbon dioxide measurementOr dered By: Dev Gutierrez on 05-21-2024 CO2 [Moles/Vol] 25.0 mmol/L Normal 21.0-32.0 [facility] Comment on above: Order Comment: Performed By: #### L 500.4050, L501.9520, L100.0500 #### [facility] [address] [place], [address] Chloride measurementOrdered By: Dev Gutierrez on 05-21-2024 Chloride [Moles/Vol] 112 mmol/L High 98-107 [facility] Comment on above: Order Comment: - Performed By: #### L 500.4050, L501.9520, L100.0500 #### [facility] [address] [place], [address] Comprehensive Metabolic Prof ilon 05-21-2024 ALK P 105 U/L Normal 45-117 [facility] Comment on above: Order Comment: - Performed By: #### L 500.4050, L501.9520, L100.0500 #### [facility] [address] [place], [address] BUN/CRE 27.1 RATIO High 10-20 [facility] Comment on above: Order Comment: Performed By: #### L 500.4050, L501.9520, L100.0500 #### [facility] [address] [place], [address] CA,Total 9.0 mg/dL Normal 8.5-10.1 [facility] Comment on above: Order Comment: Performed By: #### L 500.4050, L501.9520, L100.0500 #### [facility] [address] [place], [address] EST GFR - AA 63 mL/min Normal >60 [facility] Comment on above: Order Comment: Result Comment: Afri can Ivorian GFR Calc Performed By: #### L 500.4050, L501.9520, L100.0500 #### [facility] [address] [place], [address] GAP 6 Normal 5-15 [facility] Comment on above: Order Comment: Performed By: #### L 500.4050, L501.9520, L100.0500 #### [facility] [address] [place], [address] GFR/1.73 sq M.predicted among non-blacks MDRD (S/P/Bld) [Vol rate/Area] 52 mL/min/{1.73_m2} Low >60 [facility] Comment on above: Order Comment: Result Comment: Non- GFR Calc Performed By: #### L 500.4050, L501.9520, L100.0500 #### [facility] [address] [place], [address] T PROT 6.0 g/dL Low 6.4-8.2 [facility] Comment on above: Order Comment: Performed By: #### L 500.4050, L501.9520, L100.0500 #### [facility] [address] [place], [address] Comprehensive Metabolic Prof ilOrdered By: Dev Gutierrez on 05-21-2024 AST [Catalytic activity/Vol] 16 U/L Normal 15-37 [facility] Comment on above: Order Comment: Performed By: #### L 500.4050, L501.9520, L100.0500 #### [facility] [address] [place], [address] Erythrocyte distribution wid th (RBC) [Ratio]Ordered By: Dev Gutierrez on 05-21-2024 Erythrocyte distribution width (RBC) [Entitic vol] 48.4 fL High 35.1-43.9 [facility] Erythrocyte distribution wid th ratioOrdered By: Dev Gutierrez on 05-21-2024 Erythrocyte distribution width (RBC) [Ratio] 13.7 % Normal 11.6-14.6 [facility] Comment on above: Order Comment: Performed By: #### L 500.4050, L501.9520, L100.0500 #### [facility] [address] [place], [address] Estimated glomerular filtrat ion rate (GFR) AmericanOrdered By: Dev Gutierrez on 05-21-2024 Estimated GFR (MDRD) Amer 63 mL/min >60 [facility] Comment on above: GFR Calc Glomerular filtration rate ( GFR) estimationOrdered By: Dev Gutierrez on 05-21-2024 Estimated GFR (MDRD) Non-Af Amer 52 mL/min Low >60 [facility] Comment on above: Non- GFR Calc Glucose measurementOrdered B y: Dev Gutierrez on 05-21-2024 Glucose [Mass/Vol] 105 mg/dL Normal 74-106 [facility] Comment on above: Fasting Glucose resu lt from 100 to 125 mg/dL suggests IMPAIRED HOMEOSTASIS per A.D.A. criteria. Order Comment: Result Comment: Fast ing Glucose result from 100 to 125 mg/dL suggests IMPAIRED HOMEOSTASIS per A.D.A. criteria. Performed By: #### L 500.4050, L501.9520, L100.0500 #### [facility] [address] [place], [address] Hemoglobin measurementOrdere d By: Dev Gutierrez on 05-21-2024 Hemoglobin (Bld) [Mass/Vol] 9.7 g/dL Low 12.0-15.0 [facility] Comment on above: Order Comment: Performed By: #### L 500.4050, L501.9520, L100.0500 #### [facility] [address] [place], [address] MCV (mean corpuscular volume ) determinationOrdered By: Dev Gutierrez on 05-21-2024 MCV (RBC) [Entitic vol] 96.8 fL Normal 81-99 [facility] Comment on above: Order Comment: Performed By: #### L 500.4050, L501.9520, L100.0500 #### [facility] [address] [place], [address] Mean corpuscular hemoglobin (MCH) determinationOrdered By: Dev Gutierrez on 05-21-2024 MCH (RBC) [Entitic mass] 31.2 pg Normal 27.0-32.0 [facility] Comment on above: Order Comment: Performed By: #### L 500.4050, L501.9520, L100.0500 #### [facility] [address] [place], [address] Mean corpuscular hemoglobin concentration (MCHC) determinationOrdered By: Dev Gutierrez on 05-21-2024 MCHC (RBC) [Mass/Vol] 32.2 g/dL Normal 32-36 [facility] Comment on above: Order Comment: Performed By: #### L 500.4050, L501.9520, L100.0500 #### [facility] [address] [place], [address] Mean platelet volume determi nationOrdered By: Dev Gutierrez on 05-21-2024 Platelet mean volume (Bld) [Entitic vol] 10.2 fL Normal 6.2-12.0 [facility] Comment on above: Order Comment: Performed By: #### L 500.4050, L501.9520, L100.0500 #### [facility] [address] [place], [address] Platelet countOrdered By: Morris on 05-21-2024 Platelets (Bld) [#/Vol] 139 10*3/uL Low 150-450 [facility] Comment on above: Order Comment: Performed By: #### L 500.4050, L501.9520, L100.0500 #### [facility] [address] [place], [address] Potassium measurementOrdered By: Dev Gutierrez on 05-21-2024 Potassium [Moles/Vol] 4.0 mmol/L Normal 3.5-5.1 [facility] Comment on above: Order Comment: Performed By: #### L 500.4050, L501.9520, L100.0500 #### [facility] [address] [place], [address] Serum anion gap measurementO rdered By: Dev Gutierrez on 05-21-2024 Anion gap [Moles/Vol] 6 mmol/L 5-15 [facility] Serum globulin measurementOr dered By: Dev Gutierrez on 05-21-2024 Globulin (S) [Mass/Vol] 2.9 g/dL Normal 2.2-4.2 [facility] Comment on above: Order Comment: Performed By: #### L 500.4050, L501.9520, L100.0500 #### [facility] [address] [place], [address] Serum or plasma alanine tovar otransferase (ALT) measurementOrdered By: Dev Gutierrez on 05-21-2024 ALT [Catalytic activity/Vol] 15 U/L Normal 13-56 [facility] Comment on above: Order Comment: Performed By: #### L 500.4050, L501.9520, L100.0500 #### [facility] [address] [place], [address] Serum or plasma albumin maude urement (mass/volume)Ordered By: Dev Gutierrez on 05-21-2024 Albumin [Mass/Vol] 3.1 g/dL Low 3.2-5.0 [facility] Comment on above: Order Comment: Performed By: #### L 500.4050, L501.9520, L100.0500 #### [facility] [address] [place], [address] Serum or plasma alkaline nilton sphatase measurementOrdered By: Dev Gutierrez on 05-21-2024 ALP [Catalytic activity/Vol] 105 U/L 45-117 [facility] Serum or plasma calcium maude urement (mass/volume)Ordered By: Dev Gutierrez on 05-21-2024 Calcium [Mass/Vol] 9.0 mg/dL 8.5-10.1 [facility] Serum or plasma creatinine m easurement (mass/volume)Ordered By: Dev Gutierrez on 05-21-2024 Creatinine [Mass/Vol] 1.07 mg/dL High 0.55-1.02 [facility] Comment on above: The validity of the calculated GFR & GFRAA in patients over 70 years has not been determined. Clinical correlation is essential. Order Comment: Result Comment: The validity of the calculated GFR GFRAA in patients over 70 years has not been determined. Clinical correlation is essential. Performed By: #### L 500.4050, L501.9520, L100.0500 #### [facility] [address] [place], [address] Serum or plasma urea nitroge n measurement (mass/volume)Ordered By: Dev Gutierrez on 05-21-2024 Urea nitrogen [Mass/Vol] 29 mg/dL High 7-18 [facility] Comment on above: Order Comment: Performed By: #### L 500.4050, L501.9520, L100.0500 #### [facility] [address] [place], [address] Sodium levelOrdered By: Dev Gutierrez on 05-21-2024 Sodium [Moles/Vol] 142 mmol/L Normal 136-145 [facility] Comment on above: Order Comment: Performed By: #### L 500.4050, L501.9520, L100.0500 #### [facility] [address] [place], [address] TSH QnOrdered By: Dev [place] on 05-21-2024 Thyroid Stimulating Hormone (TSH) 0.034 uIU/mL Low 0.358-3.740 [facility] Thyroid Stim Hormone (TSH)on 05-21-2024 TSH 0.034 uIU/mL Low 0.358-3.740 [facility] Comment on above: Order Comment: - Performed By: #### L 500.4050, L501.9520, L100.0500 #### [facility] [address] [place], [address] Total proteinOrdered By: Danielle Gutierrez on 05-21-2024 Protein [Mass/Vol] 6.0 g/dL Low 6.4-8.2 [facility] White blood cell (WBC) count Ordered By: Dev Gutierrez on 05-21-2024 WBC (Bld) [#/Vol] 5.2 10*3/uL Normal 4.4-11.0 [facility] Comment on above: Order Comment: - Performed By: #### L 500.4050, L501.9520, L100.0500 #### [facility] [address] [place], [address] Urinalysis, Completeon 05-18 EPI,SQUAMOUS 0-5 SEEN Normal 5-10 [facility] Comment on above: Order Comment: - Performed By: #### L 100.0500, L500.2500 #### [facility] [address] [place], [address] WBC 10-25 SEEN Normal 0-5 [facility] Comment on above: Order Comment: - Performed By: #### L 100.0500, L500.2500 #### [facility] [address] [place], [address] BACTERIA 0 SEEN Normal None Seen [facility] Comment on above: Order Comment: - Performed By: #### L 100.0500, L500.2500 #### [facility] [address] [place], [address] Mucus Ql (Urine sed) 0 SEEN Normal [facility] Comment on above: Order Comment: - Performed By: #### L 100.0500, L500.2500 #### [facility] [address] [place], [address] RBC 0 SEEN Normal 0-5 [facility] Comment on above: Order Comment: Performed By: #### L 100.0500, L500.2500 #### [facility] [address] [place], [address] Bilirubin Test strip Ql (U)O rdered By: Dev Gutierrez on 05-17-2024 Bilirubin Ql (U) Negative Negative [facility] Epithelial cells.squamous LM Ql (Urine sed)Ordered By: Dev Gutierrez on 05-17-2024 Epithelial cells.squamous LM.HPF (Urine sed) [#/Area] 0 /[HPF] 5-10 [facility] Glucose Ql (U)Ordered By: Morris on 05-17-2024 Urine Glucose (UA) Normal mg/dl Normal [facility] Ketones Test strip Ql (U)Ord ered By: Dev Gutierrez on 05-17-2024 Ketones Ql (U) Negative Negative [facility] Microscopic analysis of urin e for red blood cells (RBC)Ordered By: Dev Gutierrez on 05-17-2024 Urine RBC 0 SEEN /hpf 0-5 [facility] Mucus LM Ql (Urine sed)Order ed By: Dev Gutierrez on 05-17-2024 Mucus Ql (Urine sed) 0 SEEN /hpf [facility] Nitrite Test strip Ql (U)Ord ered By: Dev Gutierrez on 05-17-2024 Nitrite Ql (U) Negative Negative [facility] Protein Test strip Ql (U)Ord ered By: Dev Gutierrez on 05-17-2024 Protein Ql (U) 15 mg/dl High Negative [facility] Urine blood detectionOrdered By: Dev Gutierrez on 05-17-2024 Urine Occult Blood 10 /ul High Negative [facility] Urine clarityOrdered By: Danielle Gutierrez on 05-17-2024 Clarity (U) Sl. Cloudy Clear [facility] Urine color determinationOrd ered By: Dev Gutierrez on 05-17-2024 Color (U) Yellow Yellow [facility] Urine leukocyte esterase det ection by dipstickOrdered By: Dev Gutierrez on 05-17-2024 Leukocyte esterase Test strip Ql (U) 500 /ul High Negative [facility] Urine pHOrdered By: Dev rodriguez on 05-17-2024 pH (U) 6.0 [pH] 5.0 - 8.0 [facility] Urine sediment bacteria coun t by microscopy (number/high power field)Ordered By: Dev Gutierrez on 05-17-2024 Bacteria LM.HPF (Urine sed) [#/Area] 0 /[HPF] None Seen [facility] Urine specific gravity measu rementOrdered By: Dev Gutierrez on 05-17-2024 Specific gravity (U) [Rel density] 1.010 1.002-1.030 [facility] Urobilinogen Ql (U)Ordered B y: Dev Gutierrez on 05-17-2024 Urine Urobilinogen Normal mg/dl Normal [facility] White blood cell countOrdere d By: Dev Gutierrez on 05-17-2024 Urine WBC 10-25 SEEN /hpf 0-5 [facility] Abdomen Single Viewon 2023 Abdomen Single View [facility] [address] [place] [address] [id number] Abdomen Single View MR#: [id number] Acct: [id number] Name: LEIGHANN CROWDER Rep #: [id number] : 1940 F 84 From: Chey dixon MD 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 TECHNIQUE: XR Abdomen 1 View. COMPARISON: 08/15/2006. FINDINGS: BOWEL GAS PATTERN: No dilated small bowel loops identified. Mild gaseous distention of colon FREE AIR: Not assessed on supine view. CALCIFICATIONS: Several small calcifications overlying the renal shadows. Multiple vascular calcifications and pelvic phleboliths again seen. BONES: Lower lumbar spinal fusion hardware and Gamma nail fixation of chronic left intertrochanteric femur fracture with heterotopic ossification noted. SOFT TISSUES: Right upper quadrant surgical clips. Left abdominal surgical clips with suture. RAD/Abdomen Single View IMPRESSION: Probable bilateral nephrolithiasis. Electronically Signed: Chey Morley MD at 9:15 EST , CC: Dr. Rachele Velasquez MD Library Clerical Assistant: Signed Normal [facility] CBC-Complete Blood Cnt No Di ffon 04-23-2024 Erythrocyte distribution width (RBC) [Ratio] 13.8 % Normal 11.6-14.6 [facility] Comment on above: Order Comment: Performed By: #### L 100.0500 #### [facility] [address] [place], [address] Hematocrit (Bld) [Volume fraction] 30.1 % Low 37-47 [facility] Comment on above: Order Comment: Performed By: #### L 100.0500 #### [facility] [address] [place], [address] Hemoglobin (Bld) [Mass/Vol] 9.8 g/dL Low 12.0-15.0 [facility] Comment on above: Order Comment: Performed By: #### L 100.0500 #### [facility] [address] [place], [address] MCH (RBC) [Entitic mass] 30.8 pg Normal 27.0-32.0 [facility] Comment on above: Order Comment: Performed By: #### L 100.0500 #### [facility] [address] [place], [address] MCHC (RBC) [Mass/Vol] 32.6 g/dL Normal 32-36 [facility] Comment on above: Order Comment: - Performed By: #### L 100.0500 #### [facility] [address] [place], [address] MCV (RBC) [Entitic vol] 94.7 fL Normal 81-99 [facility] Comment on above: Order Comment: - Performed By: #### L 100.0500 #### [facility] [address] [place], [address] Platelet mean volume (Bld) [Entitic vol] 9.9 fL Normal 6.2-12.0 [facility] Comment on above: Order Comment: - Performed By: #### L 100.0500 #### [facility] [address] [place], [address] Platelets (Bld) [#/Vol] 152 10*3/uL Normal 150-450 [facility] Comment on above: Order Comment: - Performed By: #### L 100.0500 #### [facility] [address] [place], [address] RBC (Bld) [#/Vol] 3.18 10*6/uL Low 4.2-5.4 [facility] Comment on above: Order Comment: - Performed By: #### L 100.0500 #### [facility] [address] [place], [address] RDW SD 47.7 fl High 35.1-43.9 [facility] Comment on above: Order Comment: - Performed By: #### L 100.0500 #### [facility] [address] [place], [address] WBC (Bld) [#/Vol] 4.7 10*3/uL Normal 4.4-11.0 [facility] Comment on above: Order Comment: - Performed By: #### L 100.0500 #### [facility] [address] [place], [address] Erythrocyte distribution wid th (RBC) [Ratio]Ordered By: Dev Gutierrez on 04-23-2024 Erythrocyte distribution width (RBC) [Entitic vol] 47.7 fL High 35.1-43.9 [facility] Erythrocyte distribution wid th ratioOrdered By: Dev Gutierrez on 04-23-2024 Erythrocyte distribution width (RBC) [Ratio] 13.8 % 11.6-14.6 [facility] Hematocrit Auto (Bld) [Volum e fraction]Ordered By: Dev Gutierrez on 04-23-2024 Hematocrit (Bld) [Volume fraction] 30.1 % Low 37-47 [facility] Hemoglobin measurementOrdere d By: Dev Gutierrez on 04-23-2024 Hemoglobin (Bld) [Mass/Vol] 9.8 g/dL Low 12.0-15.0 [facility] MCV (mean corpuscular volume ) determinationOrdered By: Dev Gutierrez on 04-23-2024 MCV (RBC) [Entitic vol] 94.7 fL 81-99 [facility] Mean corpuscular hemoglobin (MCH) determinationOrdered By: Dev Gutierrez on 04-23-2024 MCH (RBC) [Entitic mass] 30.8 pg 27.0-32.0 [facility] Mean corpuscular hemoglobin concentration (MCHC) determinationOrdered By: Dev Gutierrez on 04-23-2024 MCHC (RBC) [Mass/Vol] 32.6 g/dL 32-36 [facility] Mean platelet volume determi nationOrdered By: Dev Gutierrez on 04-23-2024 Platelet mean volume (Bld) [Entitic vol] 9.9 fL 6.2-12.0 [facility] Platelet countOrdered By: Morris on 04-23-2024 Platelets (Bld) [#/Vol] 152 10*3/uL 150-450 [facility] RBC Auto (Bld) [#/Vol]Ordere d By: Dev Gutierrez on 04-23-2024 RBC (Bld) [#/Vol] 3.18 10*6/uL Low 4.2-5.4 [facility] White blood cell (WBC) count Ordered By: Dev Gutierrez on 04-23-2024 WBC (Bld) [#/Vol] 4.7 10*3/uL 4.4-11.0 [facility] Thyroid Stim Hormone (TSH)on 04-06-2024 TSH 0.024 uIU/mL Low 0.358-3.740 [facility] Comment on above: Order Comment: - Performed By: #### L 100.0500, L500.2500 #### [facility] [address] [place], [address] Basic Metabolic Profile (BMP )on 03-20-2024 BUN/CRE 27.2 RATIO High 10-20 [facility] Comment on above: Order Comment: Performed By: #### L 500.4050, L501.9520, L100.0500 #### [facility] [address] [place], [address] CA,Total 9.2 mg/dL Normal 8.5-10.1 [facility] Comment on above: Order Comment: Performed By: #### L 500.4050, L501.9520, L100.0500 #### [facility] [address] [place], [address] Chloride [Moles/Vol] 108 mmol/L High 98-107 [facility] Comment on above: Order Comment: Performed By: #### L 500.4050, L501.9520, L100.0500 #### [facility] [address] [place], [address] CO2 [Moles/Vol] 25.0 mmol/L Normal 21.0-32.0 [facility] Comment on above: Order Comment: Performed By: #### L 500.4050, L501.9520, L100.0500 #### [facility] [address] [place], [address] Creatinine [Mass/Vol] 0.99 mg/dL Normal 0.55-1.02 [facility] Comment on above: Order Comment: Result Comment: The validity of the calculated GFR GFRAA in patients over 70 years has not been determined. Clinical correlation is essential. Performed By: #### L 500.4050, L501.9520, L100.0500 #### [facility] [address] [place], [address] EST GFR - AA 69 mL/min Normal >60 [facility] Comment on above: Order Comment: Result Comment: Afri can Ivorian GFR Calc Performed By: #### L 500.4050, L501.9520, L100.0500 #### [facility] [address] [place], [address] GAP 8 Normal 5-15 [facility] Comment on above: Order Comment: Performed By: #### L 500.4050, L501.9520, L100.0500 #### [facility] [address] [place], [address] GFR/1.73 sq M.predicted among non-blacks MDRD (S/P/Bld) [Vol rate/Area] 57 mL/min/{1.73_m2} Low >60 [facility] Comment on above: Order Comment: Result Comment: Non- GFR Calc Performed By: #### L 500.4050, L501.9520, L100.0500 #### [facility] [address] [place], [address] Glucose [Mass/Vol] 99 mg/dL Normal 74-106 [facility] Comment on above: Order Comment: Performed By: #### L 500.4050, L501.9520, L100.0500 #### [facility] [address] [place], [address] Potassium [Moles/Vol] 4.1 mmol/L Normal 3.5-5.1 [facility] Comment on above: Order Comment: Performed By: #### L 500.4050, L501.9520, L100.0500 #### [facility] [address] [place], [address] Sodium [Moles/Vol] 141 mmol/L Normal 136-145 [facility] Comment on above: Order Comment: Performed By: #### L 500.4050, L501.9520, L100.0500 #### [facility] [address] [place], [address] Urea nitrogen [Mass/Vol] 27 mg/dL High 7-18 [facility] Comment on above: Order Comment: Performed By: #### L 500.4050, L501.9520, L100.0500 #### [facility] [address] [place], [address] Potassiumon 03-09-2024 Potassium [Moles/Vol] 4.4 mmol/L Normal 3.5-5.1 [facility] Comment on above: Order Comment: Performed By: #### L 100.0500, L500.2500 #### [facility] [address] [place], [address] Potassiumon 03-08-2024 Potassium [Moles/Vol] 4.6 mmol/L Normal 3.5-5.1 [facility] Comment on above: Order Comment: Performed By: #### L 500.4050, L501.9520, L100.0500 #### [facility] [address] [place], [address] Potassiumon 03-07-2024 Potassium [Moles/Vol] 5.1 mmol/L Normal 3.5-5.1 [facility] Comment on above: Order Comment: Performed By: #### L 100.0500, L500.2500 #### [facility] [address] [place], [address] Comprehensive Metabolic Prof ilon 03-06-2024 Albumin [Mass/Vol] 3.1 g/dL Low 3.2-5.0 [facility] Comment on above: Order Comment: - Performed By: #### L 500.4050, L501.9520, L100.0500 #### [facility] [address] [place], [address] Albumin/Globulin [Mass ratio] 1.1 {ratio} Normal 0.9-2.4 [facility] Comment on above: Order Comment: Performed By: #### L 500.4050, L501.9520, L100.0500 #### [facility] [address] [place], [address] ALK P 106 U/L Normal 45-117 [facility] Comment on above: Order Comment: Performed By: #### L 500.4050, L501.9520, L100.0500 #### [facility] [address] [place], [address] ALT [Catalytic activity/Vol] 11 U/L Low 13-56 [facility] Comment on above: Order Comment: Performed By: #### L 500.4050, L501.9520, L100.0500 #### [facility] [address] [place], [address] AST [Catalytic activity/Vol] 12 U/L Low 15-37 [facility] Comment on above: Order Comment: Performed By: #### L 500.4050, L501.9520, L100.0500 #### [facility] [address] [place], [address] Bilirubin [Mass/Vol] 0.80 mg/dL Normal 0.20-1.00 [facility] Comment on above: Order Comment: Result Comment: For patients on eltrombopag therapy, use of Dimension [place] TBIL is not recommended. Performed By: #### L 500.4050, L501.9520, L100.0500 #### [facility] [address] [place], [address] BUN/CRE 22.4 RATIO High 10-20 [facility] Comment on above: Order Comment: Performed By: #### L 500.4050, L501.9520, L100.0500 #### [facility] [address] [place], [address] CA,Total 9.3 mg/dL Normal 8.5-10.1 [facility] Comment on above: Order Comment: Performed By: #### L 500.4050, L501.9520, L100.0500 #### [facility] [address] [place], [address] Chloride [Moles/Vol] 109 mmol/L High 98-107 [facility] Comment on above: Order Comment: Performed By: #### L 500.4050, L501.9520, L100.0500 #### [facility] [address] [place], [address] CO2 [Moles/Vol] 26.0 mmol/L Normal 21.0-32.0 [facility] Comment on above: Order Comment: Performed By: #### L 500.4050, L501.9520, L100.0500 #### [facility] [address] [place], [address] Creatinine [Mass/Vol] 1.25 mg/dL High 0.55-1.02 [facility] Comment on above: Order Comment: Result Comment: The validity of the calculated GFR GFRAA in patients over 70 years has not been determined. Clinical correlation is essential. Performed By: #### L 500.4050, L501.9520, L100.0500 #### [facility] [address] [place], [address] EST GFR - AA 53 mL/min Low >60 [facility] Comment on above: Order Comment: Result Comment: Afri can [facility] GFR Calc Performed By: #### L 500.4050, L501.9520, L100.0500 #### [facility] [address] [place], [address] GAP 5 Normal 5-15 [facility] Comment on above: Order Comment: Performed By: #### L 500.4050, L501.9520, L100.0500 #### [facility] [address] [place], [address] GFR/1.73 sq M.predicted among non-blacks MDRD (S/P/Bld) [Vol rate/Area] 44 mL/min/{1.73_m2} Low >60 [facility] Comment on above: Order Comment: Result Comment: Non- GFR Calc Performed By: #### L 500.4050, L501.9520, L100.0500 #### [facility] [address] [place], [address] Globulin (S) [Mass/Vol] 2.8 g/dL Normal 2.2-4.2 [facility] Comment on above: Order Comment: Performed By: #### L 500.4050, L501.9520, L100.0500 #### [facility] [address] [place], [address] Glucose [Mass/Vol] 89 mg/dL Normal 74-106 [facility] Comment on above: Order Comment: Performed By: #### L 500.4050, L501.9520, L100.0500 #### [facility] [address] [place], [address] Potassium [Moles/Vol] 5.5 mmol/L High 3.5-5.1 [facility] Comment on above: Order Comment: Performed By: #### L 500.4050, L501.9520, L100.0500 #### [facility] [address] [place], [address] Sodium [Moles/Vol] 139 mmol/L Normal 136-145 [facility] Comment on above: Order Comment: Performed By: #### L 500.4050, L501.9520, L100.0500 #### [facility] [address] [place], [address] T PROT 5.9 g/dL Low 6.4-8.2 [facility] Comment on above: Order Comment: Performed By: #### L 500.4050, L501.9520, L100.0500 #### [facility] [address] [place], [address] Urea nitrogen [Mass/Vol] 28 mg/dL High 7-18 [facility] Comment on above: Order Comment: Performed By: #### L 500.4050, L501.9520, L100.0500 #### [facility] [address] [place], [address] Magnesiumon 03-06-2024 Magnesium [Mass/Vol] 1.8 mg/dL Normal 1.6-2.6 [facility] Comment on above: Order Comment: Performed By: #### L 500.4050, L501.9520, L100.0500 #### [facility] [address] [place], [address] L5000.0012on 03-03-2024 Vitamin B12 Normal [facility] Comment on above: Order Comment: Result Comment: TEST RESULTS LIMITS Vitamin B12 832 pg/mL 232-1245 TESTING PERFORMED AT [facility]. ORIGINAL REPORT ON FILE IN LAB CONTAINS ADDITIONAL TEST SITE INFORMATION. Performed By: #### L 100.0500, L500.2500 #### [facility] [address] [place], [address] CBC-Complete Blood Cnt No Di ffon 02-27-2024 Erythrocyte distribution width (RBC) [Ratio] 13.0 % Normal 11.6-14.6 [facility] Comment on above: Order Comment: - Performed By: #### L 100.0500, L500.2500 #### [facility] [address] [place], [address] Hematocrit (Bld) [Volume fraction] 27.7 % Low 37-47 [facility] Comment on above: Order Comment: - Performed By: #### L 100.0500, L500.2500 #### [facility] [address] [place], [address] Hemoglobin (Bld) [Mass/Vol] 8.8 g/dL Low 12.0-15.0 [facility] Comment on above: Order Comment: - Performed By: #### L 100.0500, L500.2500 #### [facility] [address] [place], [address] MCH (RBC) [Entitic mass] 30.4 pg Normal 27.0-32.0 [facility] Comment on above: Order Comment: - Performed By: #### L 100.0500, L500.2500 #### [facility] [address] [place], [address] MCHC (RBC) [Mass/Vol] 31.8 g/dL Low 32-36 [facility] Comment on above: Order Comment: - Performed By: #### L 100.0500, L500.2500 #### [facility] [address] [place], [address] MCV (RBC) [Entitic vol] 95.8 fL Normal 81-99 [facility] Comment on above: Order Comment: - Performed By: #### L 100.0500, L500.2500 #### [facility] [address] [place], [address] Platelet mean volume (Bld) [Entitic vol] 9.9 fL Normal 6.2-12.0 [facility] Comment on above: Order Comment: Performed By: #### L 100.0500, L500.2500 #### [facility] [address] [place], [address] Platelets (Bld) [#/Vol] 134 10*3/uL Low 150-450 [facility] Comment on above: Order Comment: Performed By: #### L 100.0500, L500.2500 #### [facility] [address] [place], [address] RBC (Bld) [#/Vol] 2.89 10*6/uL Low 4.2-5.4 [facility] Comment on above: Order Comment: - Performed By: #### L 100.0500, L500.2500 #### [facility] [address] [place], [address] RDW SD 46.1 fl High 35.1-43.9 [facility] Comment on above: Order Comment: - Performed By: #### L 100.0500, L500.2500 #### [facility] [address] [place], [address] WBC (Bld) [#/Vol] 4.9 10*3/uL Normal 4.4-11.0 [facility] Comment on above: Order Comment: - Performed By: #### L 100.0500, L500.2500 #### [facility] [address] [place], [address] Comprehensive Metabolic Prof ilon 02-27-2024 Albumin [Mass/Vol] 3.1 g/dL Low 3.2-5.0 [facility] Comment on above: Order Comment: - Performed By: #### L 100.0500, L500.2500 #### [facility] [address] [place], [address] Albumin/Globulin [Mass ratio] 1.1 {ratio} Normal 0.9-2.4 [facility] Comment on above: Order Comment: Performed By: #### L 100.0500, L500.2500 #### [facility] [address] [place], [address] ALK P 94 U/L Normal 45-117 [facility] Comment on above: Order Comment: Performed By: #### L 100.0500, L500.2500 #### [facility] [address] [place], [address] ALT [Catalytic activity/Vol] 12 U/L Low 13-56 [facility] Comment on above: Order Comment: - Performed By: #### L 100.0500, L500.2500 #### [facility] [address] [place], [address] AST [Catalytic activity/Vol] 14 U/L Low 15-37 [facility] Comment on above: Order Comment: - Performed By: #### L 100.0500, L500.2500 #### [facility] [address] [place], [address] Bilirubin [Mass/Vol] 0.80 mg/dL Normal 0.20-1.00 [facility] Comment on above: Order Comment: Result Comment: For patients on eltrombopag therapy, use of Dimension [place] TBIL is not recommended. Performed By: #### L 100.0500, L500.2500 #### [facility] [address] [place], [address] BUN/CRE 24.0 RATIO High 10-20 [facility] Comment on above: Order Comment: Performed By: #### L 100.0500, L500.2500 #### [facility] [address] [place], [address] CA,Total 8.9 mg/dL Normal 8.5-10.1 [facility] Comment on above: Order Comment: Performed By: #### L 100.0500, L500.2500 #### [facility] [address] [place], [address] Chloride [Moles/Vol] 109 mmol/L High 98-107 [facility] Comment on above: Order Comment: Performed By: #### L 100.0500, L500.2500 #### [facility] [address] [place], [address] CO2 [Moles/Vol] 25.0 mmol/L Normal 21.0-32.0 [facility] Comment on above: Order Comment: Performed By: #### L 100.0500, L500.2500 #### [facility] [address] [place], [address] Creatinine [Mass/Vol] 1.29 mg/dL High 0.55-1.02 [facility] Comment on above: Order Comment: Result Comment: The validity of the calculated GFR GFRAA in patients over 70 years has not been determined. Clinical correlation is essential. Performed By: #### L 100.0500, L500.2500 #### [facility] [address] [place], [address] EST GFR - AA 51 mL/min Low >60 [facility] Comment on above: Order Comment: Result Comment: Afri can [place] GFR Calc Performed By: #### L 100.0500, L500.2500 #### [facility] [address] [place], [address] GAP 6 Normal 5-15 [facility] Comment on above: Order Comment: Performed By: #### L 100.0500, L500.2500 #### [facility] [address] [place], [address] GFR/1.73 sq M.predicted among non-blacks MDRD (S/P/Bld) [Vol rate/Area] 42 mL/min/{1.73_m2} Low >60 [facility] Comment on above: Order Comment: Result Comment: Non- GFR Calc Performed By: #### L 100.0500, L500.2500 #### [facility] [address] [place], [address] Globulin (S) [Mass/Vol] 2.7 g/dL Normal 2.2-4.2 [facility] Comment on above: Order Comment: Performed By: #### L 100.0500, L500.2500 #### [facility] [address] [place], [address] Glucose [Mass/Vol] 95 mg/dL Normal 74-106 [facility] Comment on above: Order Comment: Performed By: #### L 100.0500, L500.2500 #### [facility] [address] [place], [address] Potassium [Moles/Vol] 4.8 mmol/L Normal 3.5-5.1 [facility] Comment on above: Order Comment: Performed By: #### L 100.0500, L500.2500 #### [facility] [address] [place], [address] Sodium [Moles/Vol] 140 mmol/L Normal 136-145 [facility] Comment on above: Order Comment: Performed By: #### L 100.0500, L500.2500 #### [facility] [address] [place], [address] T PROT 5.8 g/dL Low 6.4-8.2 [facility] Comment on above: Order Comment: Performed By: #### L 100.0500, L500.2500 #### [facility] [address] [place], [address] Urea nitrogen [Mass/Vol] 31 mg/dL High 7-18 [facility] Comment on above: Order Comment: Performed By: #### L 100.0500, L500.2500 #### [facility] [address] [place], [address] Thyroid Stim Hormone (TSH)on 02-27-2024 TSH 0.011 uIU/mL Low 0.358-3.740 [facility] Comment on above: Order Comment: Performed By: #### L 100.0500, L500.2500 #### [facility] [address] [place], [address] Basic Metabolic Profile (BMP )on 01-23-2024 BUN/CRE 26.7 RATIO High 10-20 [facility] Comment on above: Order Comment: Performed By: #### L 100.0500, L500.2500 #### [facility] [address] [place], [address] CA,Total 9.2 mg/dL Normal 8.5-10.1 [facility] Comment on above: Order Comment: Performed By: #### L 100.0500, L500.2500 #### [facility] [address] [place], [address] Chloride [Moles/Vol] 106 mmol/L Normal 98-107 [facility] Comment on above: Order Comment: Performed By: #### L 100.0500, L500.2500 #### [facility] [address] [place], [address] CO2 [Moles/Vol] 27.0 mmol/L Normal 21.0-32.0 [facility] Comment on above: Order Comment: Performed By: #### L 100.0500, L500.2500 #### [facility] [address] [place], [address] Creatinine [Mass/Vol] 1.01 mg/dL Normal 0.55-1.02 [facility] Comment on above: Order Comment: Result Comment: The validity of the calculated GFR GFRAA in patients over 70 years has not been determined. Clinical correlation is essential. Performed By: #### L 100.0500, L500.2500 #### [facility] [address] [place], [address] EST GFR - AA 67 mL/min Normal >60 [facility] Comment on above: Order Comment: Result Comment: Afri can [place] GFR Calc Performed By: #### L 100.0500, L500.2500 #### [facility] [address] [place], [address] GAP 5 Normal 5-15 [facility] Comment on above: Order Comment: Performed By: #### L 100.0500, L500.2500 #### [facility] [address] [place], [address] GFR/1.73 sq M.predicted among non-blacks MDRD (S/P/Bld) [Vol rate/Area] 56 mL/min/{1.73_m2} Low >60 [facility] Comment on above: Order Comment: Result Comment: Non- GFR Calc Performed By: #### L 100.0500, L500.2500 #### [facility] [address] [place], [address] Glucose [Mass/Vol] 94 mg/dL Normal 74-106 [facility] Comment on above: Order Comment: Performed By: #### L 100.0500, L500.2500 #### [facility] [address] [place], [address] Potassium [Moles/Vol] 4.4 mmol/L Normal 3.5-5.1 [facility] Comment on above: Order Comment: Performed By: #### L 100.0500, L500.2500 #### [facility] [address] [place], [address] Sodium [Moles/Vol] 138 mmol/L Normal 136-145 [facility] Comment on above: Order Comment: Performed By: #### L 100.0500, L500.2500 #### [facility] [address] [place], [address] Urea nitrogen [Mass/Vol] 27 mg/dL High 7-18 [facility] Comment on above: Order Comment: Performed By: #### L 100.0500, L500.2500 #### [facility] [address] [place], [address] Urine Cultureon 01-19-2024 URC Culture exhibits no growth. Normal [facility] Comment on above: Performed By: #### L 500.4050, L501.9520, L100.0500 #### [facility] [address] [place], [address] CBC-Complete Blood Cnt No Di ffon 01-18-2024 Erythrocyte distribution width (RBC) [Ratio] 13.3 % Normal 11.6-14.6 [facility] Comment on above: Order Comment: Performed By: #### L 500.4050, L501.9520, L100.0500 #### [facility] [address] [place], [address] Hematocrit (Bld) [Volume fraction] 29.8 % Low 37-47 [facility] Comment on above: Order Comment: Performed By: #### L 500.4050, L501.9520, L100.0500 #### [facility] [address] [place], [address] Hemoglobin (Bld) [Mass/Vol] 9.6 g/dL Low 12.0-15.0 [facility] Comment on above: Order Comment: Performed By: #### L 500.4050, L501.9520, L100.0500 #### [facility] [address] [place], [address] MCH (RBC) [Entitic mass] 30.9 pg Normal 27.0-32.0 [facility] Comment on above: Order Comment: Performed By: #### L 500.4050, L501.9520, L100.0500 #### [facility] [address] [place], [address] MCHC (RBC) [Mass/Vol] 32.2 g/dL Normal 32-36 [facility] Comment on above: Order Comment: Performed By: #### L 500.4050, L501.9520, L100.0500 #### [facility] [address] [place], [address] MCV (RBC) [Entitic vol] 95.8 fL Normal 81-99 [facility] Comment on above: Order Comment: - Performed By: #### L 500.4050, L501.9520, L100.0500 #### [place] [facility] [address] [place], [address] Platelet mean volume (Bld) [Entitic vol] 9.7 fL Normal 6.2-12.0 [facility] Comment on above: Order Comment: Performed By: #### L 500.4050, L501.9520, L100.0500 #### [facility] [address] [place], [address] Platelets (Bld) [#/Vol] 142 10*3/uL Low 150-450 [facility] Comment on above: Order Comment: Performed By: #### L 500.4050, L501.9520, L100.0500 #### [facility] [address] [place], [address] RBC (Bld) [#/Vol] 3.11 10*6/uL Low 4.2-5.4 [facility] Comment on above: Order Comment: Performed By: #### L 500.4050, L501.9520, L100.0500 #### [facility] [address] [place], [address] RDW SD 46.8 fl High 35.1-43.9 [facility] Comment on above: Order Comment: Performed By: #### L 500.4050, L501.9520, L100.0500 #### [facility] [address] [place], [address] WBC (Bld) [#/Vol] 4.8 10*3/uL Normal 4.4-11.0 [facility] Comment on above: Order Comment: Performed By: #### L 500.4050, L501.9520, L100.0500 #### [facility] [address] [place], [address] Ferritinon 01-18-2024 Ferritin [Mass/Vol] 62 ng/mL Normal 8-252 [facility] Comment on above: Order Comment: - Performed By: #### L 500.4050, L501.9520, L100.0500 #### [facility] [address] [place], [address] Folates, (Folic Acid)on FOLATES 14.40 ng/mL Normal 3.1-55.4 [facility] Comment on above: Order Comment: - Performed By: #### L 500.4050, L501.9520, L100.0500 #### [facility] [address] [place], [address] Iron+Iron Binding Capacityon 01-18-2024 Iron [Mass/Vol] 50 ug/dL Normal 50-170 [facility] Comment on above: Order Comment: Performed By: #### L 500.4050, L501.9520, L100.0500 #### [facility] [address] [place], [address] IRON SATURATION 16.9 Normal 15.0-55.0 [facility] Comment on above: Order Comment: - Performed By: #### L 500.4050, L501.9520, L100.0500 #### [facility] [address] [place], [address] TIBC 295 ug/dL Normal 250-450 [facility] Comment on above: Order Comment: - Performed By: #### L 500.4050, L501.9520, L100.0500 #### [facility] [address] [place], [address] Urinalysis, Completeon 01-17 BACTERIA 0 SEEN Normal None Seen [facility] Comment on above: Order Comment: - Performed By: #### L 500.4050, L501.9520, L100.0500 #### [facility] [address] [place], [address] EPI,SQUAMOUS 0 SEEN Normal 5-10 [facility] Comment on above: Order Comment: Performed By: #### L 500.4050, L501.9520, L100.0500 #### [facility] [address] [place], [address] Mucus Ql (Urine sed) 0 SEEN Normal [facility] Comment on above: Order Comment: Performed By: #### L 500.4050, L501.9520, L100.0500 #### [facility] [address] [place], [address] RBC 0 SEEN Normal 0-5 [facility] Comment on above: Order Comment: Performed By: #### L 500.4050, L501.9520, L100.0500 #### [facility] [address] [place], [address] WBC 0 SEEN Normal 0-5 [facility] Comment on above: Order Comment: Performed By: #### L 500.4050, L501.9520, L100.0500 #### [facility] [address] [place], [address] Vitamin B12on 01-18-2024 Cobalamin (Vitamin B12) [Mass/Vol] 768 pg/mL Normal 211-911 [facility] Comment on above: Order Comment: Performed By: #### L 500.4050, L501.9520, L100.0500 #### [facility] [address] [place], [address] Basic Metabolic Profile (BMP )on 01-17-2024 BUN/CRE 24.1 RATIO High 10-20 [facility] Comment on above: Order Comment: Performed By: #### L 100.0500, L500.2500 #### [facility] [address] [place], [address] CA,Total 9.6 mg/dL Normal 8.5-10.1 [facility] Comment on above: Order Comment: Performed By: #### L 100.0500, L500.2500 #### [facility] [address] [place], [address] Chloride [Moles/Vol] 105 mmol/L Normal 98-107 [facility] Comment on above: Order Comment: Performed By: #### L 100.0500, L500.2500 #### [facility] [address] [place], [address] CO2 [Moles/Vol] 27.0 mmol/L Normal 21.0-32.0 [facility] Comment on above: Order Comment: Performed By: #### L 100.0500, L500.2500 #### [facility] [address] [place], [address] Creatinine [Mass/Vol] 1.08 mg/dL High 0.55-1.02 [facility] Comment on above: Order Comment: Result Comment: The validity of the calculated GFR GFRAA in patients over 70 years has not been determined. Clinical correlation is essential. Performed By: #### L 100.0500, L500.2500 #### [facility] [address] [place], [address] EST GFR - AA 62 mL/min Normal >60 [facility] Comment on above: Order Comment: Result Comment: Afri can Ivorian GFR Calc Performed By: #### L 100.0500, L500.2500 #### [facility] [address] [place], [address] GAP 6 Normal 5-15 [facility] Comment on above: Order Comment: Performed By: #### L 100.0500, L500.2500 #### [facility] [address] [place], [address] GFR/1.73 sq M.predicted among non-blacks MDRD (S/P/Bld) [Vol rate/Area] 52 mL/min/{1.73_m2} Low >60 [facility] Comment on above: Order Comment: Result Comment: Non- GFR Calc Performed By: #### L 100.0500, L500.2500 #### [facility] [address] [place], [address] Glucose [Mass/Vol] 96 mg/dL Normal 74-106 [facility] Comment on above: Order Comment: Performed By: #### L 100.0500, L500.2500 #### [facility] [address] [place], [address] Potassium [Moles/Vol] 4.9 mmol/L Normal 3.5-5.1 [facility] Comment on above: Order Comment: Performed By: #### L 100.0500, L500.2500 #### [facility] [address] [place], [address] Sodium [Moles/Vol] 138 mmol/L Normal 136-145 [facility] Comment on above: Order Comment: Performed By: #### L 100.0500, L500.2500 #### [facility] [address] [place], [address] Urea nitrogen [Mass/Vol] 26 mg/dL High 7-18 [facility] Comment on above: Order Comment: Performed By: #### L 100.0500, L500.2500 #### [facility] [address] [place], [address] CBC-Complete Blood Cnt No Di ffon 01-17-2024 Erythrocyte distribution width (RBC) [Ratio] 13.2 % Normal 11.6-14.6 [facility] Comment on above: Order Comment: Performed By: #### L 100.0500, L500.2500 #### [facility] [address] [place], [address] Hematocrit (Bld) [Volume fraction] 28.0 % Low 37-47 [facility] Comment on above: Order Comment: - Performed By: #### L 100.0500, L500.2500 #### [facility] [address] [place], [address] Hemoglobin (Bld) [Mass/Vol] 8.8 g/dL Low 12.0-15.0 [facility] Comment on above: Order Comment: Performed By: #### L 100.0500, L500.2500 #### [facility] [address] [place], [address] MCH (RBC) [Entitic mass] 30.8 pg Normal 27.0-32.0 [facility] Comment on above: Order Comment: Performed By: #### L 100.0500, L500.2500 #### [facility] [address] [place], [address] MCHC (RBC) [Mass/Vol] 31.4 g/dL Low 32-36 [facility] Comment on above: Order Comment: Performed By: #### L 100.0500, L500.2500 #### [facility] [address] [place], [address] MCV (RBC) [Entitic vol] 97.9 fL Normal 81-99 [facility] Comment on above: Order Comment: Performed By: #### L 100.0500, L500.2500 #### [facility] [address] [place], [address] Platelet mean volume (Bld) [Entitic vol] 10.1 fL Normal 6.2-12.0 [facility] Comment on above: Order Comment: - Performed By: #### L 100.0500, L500.2500 #### [facility] [address] [place], [address] Platelets (Bld) [#/Vol] 122 10*3/uL Low 150-450 [facility] Comment on above: Order Comment: - Performed By: #### L 100.0500, L500.2500 #### [facility] [address] [place], [address] RBC (Bld) [#/Vol] 2.86 10*6/uL Low 4.2-5.4 [facility] Comment on above: Order Comment: - Performed By: #### L 100.0500, L500.2500 #### [facility] [address] [place], [address] RDW SD 47.1 fl High 35.1-43.9 [facility] Comment on above: Order Comment: - Performed By: #### L 100.0500, L500.2500 #### [facility] [address] [place], [address] WBC (Bld) [#/Vol] 3.6 10*3/uL Low 4.4-11.0 [facility] Comment on above: Order Comment: Performed By: #### L 100.0500, L500.2500 #### [facility] [address] [place], [address] Urine Cultureon 12-21-2023 URC Below infection level. Mixed Gram Positive Organisms Eastman Count 1000-10,000 MIXC Mixed contaminants. Submit a new specimen if indicated. Normal [facility] Comment on above: Performed By: #### M 100.2200, L400.0001 #### [facility] [address] [place], [address] CBC-Complete Blood Cnt No Di ffon 12-20-2023 Erythrocyte distribution width (RBC) [Ratio] 13.4 % Normal 11.6-14.6 [facility] Comment on above: Order Comment: - Performed By: #### L 100.0500, L500.2500 #### [facility] [address] [place], [address] Hematocrit (Bld) [Volume fraction] 31.6 % Low 37-47 [facility] Comment on above: Order Comment: - Performed By: #### L 100.0500, L500.2500 #### [facility] [address] [place], [address] Hemoglobin (Bld) [Mass/Vol] 10.0 g/dL Low 12.0-15.0 [facility] Comment on above: Order Comment: Performed By: #### L 100.0500, L500.2500 #### [facility] [address] [place], [address] MCH (RBC) [Entitic mass] 30.7 pg Normal 27.0-32.0 [facility] Comment on above: Order Comment: Performed By: #### L 100.0500, L500.2500 #### [facility] [address] [place], [address] MCHC (RBC) [Mass/Vol] 31.6 g/dL Low 32-36 [facility] Comment on above: Order Comment: Performed By: #### L 100.0500, L500.2500 #### [facility] [address] [place], [address] MCV (RBC) [Entitic vol] 96.9 fL Normal 81-99 [facility] Comment on above: Order Comment: Performed By: #### L 100.0500, L500.2500 #### [facility] [address] [place], [address] Platelet mean volume (Bld) [Entitic vol] 10.0 fL Normal 6.2-12.0 [facility] Comment on above: Order Comment: - Performed By: #### L 100.0500, L500.2500 #### [facility] [address] [place], [address] Platelets (Bld) [#/Vol] 142 10*3/uL Low 150-450 [facility] Comment on above: Order Comment: - Performed By: #### L 100.0500, L500.2500 #### [facility] [address] [place], [address] RBC (Bld) [#/Vol] 3.26 10*6/uL Low 4.2-5.4 [facility] Comment on above: Order Comment: - Performed By: #### L 100.0500, L500.2500 #### [facility] [address] [place], [address] RDW SD 48.0 fl High 35.1-43.9 [facility] Comment on above: Order Comment: - Performed By: #### L 100.0500, L500.2500 #### [facility] [address] [place], [address] WBC (Bld) [#/Vol] 5.0 10*3/uL Normal 4.4-11.0 [facility] Comment on above: Order Comment: - Performed By: #### L 100.0500, L500.2500 #### [facility] [address] [place], [address] Comprehensive Metabolic Prof ilon 12-20-2023 Albumin [Mass/Vol] 3.2 g/dL Normal 3.2-5.0 [facility] Comment on above: Order Comment: - Performed By: #### L 100.0500, L500.2500 #### [facility] [address] [place], [address] Albumin/Globulin [Mass ratio] 1.0 {ratio} Normal 0.9-2.4 [facility] Comment on above: Order Comment: Performed By: #### L 100.0500, L500.2500 #### [facility] [address] [place], [address] ALK P 99 U/L Normal 45-117 [facility] Comment on above: Order Comment: Performed By: #### L 100.0500, L500.2500 #### [facility] [address] [place], [address] ALT [Catalytic activity/Vol] 13 U/L Normal 13-56 [facility] Comment on above: Order Comment: Performed By: #### L 100.0500, L500.2500 #### [facility] [address] [place], [address] AST [Catalytic activity/Vol] 17 U/L Normal 15-37 [facility] Comment on above: Order Comment: Performed By: #### L 100.0500, L500.2500 #### [facility] [address] [place], [address] Bilirubin [Mass/Vol] 1.30 mg/dL High 0.20-1.00 [facility] Comment on above: Order Comment: Result Comment: For patients on eltrombopag therapy, use of Dimension [place] TBIL is not recommended. Performed By: #### L 100.0500, L500.2500 #### [facility] [address] [place], [address] BUN/CRE 24.1 RATIO High 10-20 [facility] Comment on above: Order Comment: Performed By: #### L 100.0500, L500.2500 #### [facility] [address] [place], [address] CA,Total 9.5 mg/dL Normal 8.5-10.1 [facility] Comment on above: Order Comment: Performed By: #### L 100.0500, L500.2500 #### [facility] [address] [place], [address] Chloride [Moles/Vol] 108 mmol/L High 98-107 [facility] Comment on above: Order Comment: Performed By: #### L 100.0500, L500.2500 #### [facility] [address] [place], [address] CO2 [Moles/Vol] 30.0 mmol/L Normal 21.0-32.0 [facility] Comment on above: Order Comment: Performed By: #### L 100.0500, L500.2500 #### [facility] [address] [place], [address] Creatinine [Mass/Vol] 1.16 mg/dL High 0.55-1.02 [facility] Comment on above: Order Comment: Result Comment: The validity of the calculated GFR GFRAA in patients over 70 years has not been determined. Clinical correlation is essential. Performed By: #### L 100.0500, L500.2500 #### [facility] [address] [place], [address] EST GFR - AA 57 mL/min Low >60 [facility] Comment on above: Order Comment: Result Comment: Afri can Ivorian GFR Calc Performed By: #### L 100.0500, L500.2500 #### [facility] [address] [place], [address] GAP 3 Low 5-15 [facility] Comment on above: Order Comment: Performed By: #### L 100.0500, L500.2500 #### [facility] [address] [place], [address] GFR/1.73 sq M.predicted among non-blacks MDRD (S/P/Bld) [Vol rate/Area] 47 mL/min/{1.73_m2} Low >60 [facility] Comment on above: Order Comment: Result Comment: Non- GFR Calc Performed By: #### L 100.0500, L500.2500 #### [facility] [address] [place], [address] Globulin (S) [Mass/Vol] 3.2 g/dL Normal 2.2-4.2 [facility] Comment on above: Order Comment: Performed By: #### L 100.0500, L500.2500 #### [facility] [address] [place], [address] Glucose [Mass/Vol] 89 mg/dL Normal 74-106 [facility] Comment on above: Order Comment: Performed By: #### L 100.0500, L500.2500 #### [facility] [address] [place], [address] Potassium [Moles/Vol] 4.8 mmol/L Normal 3.5-5.1 [facility] Comment on above: Order Comment: Performed By: #### L 100.0500, L500.2500 #### [facility] [address] [place], [address] Sodium [Moles/Vol] 141 mmol/L Normal 136-145 [facility] Comment on above: Order Comment: Performed By: #### L 100.0500, L500.2500 #### [facility] [address] [place], [address] T PROT 6.4 g/dL Normal 6.4-8.2 [facility] Comment on above: Order Comment: Performed By: #### L 100.0500, L500.2500 #### [facility] [address] [place], [address] Urea nitrogen [Mass/Vol] 28 mg/dL High 7-18 [facility] Comment on above: Order Comment: 209-1 Performed By: #### L 100.0500, L500.2500 #### [facility] [address] [place], [address] Urinalysis, Completeon 12-19 BACTERIA RARE Normal None Seen [facility] Comment on above: Order Comment: CLEAN CATCH Performed By: #### M 100.2200, L400.0001 #### [facility] [address] [place], [address] EPI,SQUAMOUS 0-5 SEEN Normal 5-10 [facility] Comment on above: Order Comment: CLEAN CATCH Performed By: #### M 100.2200, L400.0001 #### [facility] [address] [place], [address] EPI,TRANSITION 0-5 SEEN Normal 0-5 [facility] Comment on above: Order Comment: CLEAN CATCH Performed By: #### M 100.2200, L400.0001 #### [facility] [address] [place], [address] RBC 0-5 SEEN Normal 0-5 [facility] Comment on above: Order Comment: CLEAN CATCH Performed By: #### M 100.2200, L400.0001 #### [facility] [address] [place], [address] Mucus Ql (Urine sed) 0 SEEN Normal [facility] Comment on above: Order Comment: CLEAN CATCH Performed By: #### M 100.2200, L400.0001 #### [facility] [address] [place], [address] WBC 0 SEEN Normal 0-5 [facility] Comment on above: Order Comment: CLEAN CATCH Performed By: #### M 100.2200, L400.0001 #### [facility] [address] [place], [address] CBC-Complete Blood Cnt No Di ffon 12-05-2023 Erythrocyte distribution width (RBC) [Ratio] 13.4 % Normal 11.6-14.6 [facility] Comment on above: Order Comment: Performed By: #### L 500.4050, L100.0500 #### [facility] [address] [place], [address] Hematocrit (Bld) [Volume fraction] 29.3 % Low 37-47 [facility] Comment on above: Order Comment: Performed By: #### L 500.4050, L100.0500 #### [facility] [address] [place], [address] Hemoglobin (Bld) [Mass/Vol] 9.3 g/dL Low 12.0-15.0 [facility] Comment on above: Order Comment: Performed By: #### L 500.4050, L100.0500 #### [facility] [address] [place], [address] MCH (RBC) [Entitic mass] 30.3 pg Normal 27.0-32.0 [facility] Comment on above: Order Comment: Performed By: #### L 500.4050, L100.0500 #### [facility] [address] [place], [address] MCHC (RBC) [Mass/Vol] 31.7 g/dL Low 32-36 [facility] Comment on above: Order Comment: Performed By: #### L 500.4050, L100.0500 #### [facility] [address] [place], [address] MCV (RBC) [Entitic vol] 95.4 fL Normal 81-99 [facility] Comment on above: Order Comment: Performed By: #### L 500.4050, L100.0500 #### [facility] [address] [place], [address] Platelet mean volume (Bld) [Entitic vol] 9.8 fL Normal 6.2-12.0 [facility] Comment on above: Order Comment: - Performed By: #### L 500.4050, L100.0500 #### [facility] [address] [place], [address] Platelets (Bld) [#/Vol] 144 10*3/uL Low 150-450 [facility] Comment on above: Order Comment: - Performed By: #### L 500.4050, L100.0500 #### [facility] [address] [place], [address] RBC (Bld) [#/Vol] 3.07 10*6/uL Low 4.2-5.4 [facility] Comment on above: Order Comment: - Performed By: #### L 500.4050, L100.0500 #### [facility] [address] [place], [address] RDW SD 46.7 fl High 35.1-43.9 [facility] Comment on above: Order Comment: - Performed By: #### L 500.4050, L100.0500 #### [facility] [address] [place], [address] WBC (Bld) [#/Vol] 4.1 10*3/uL Low 4.4-11.0 [facility] Comment on above: Order Comment: - Performed By: #### L 500.4050, L100.0500 #### [facility] [address] [place], [address] Comprehensive Metabolic Prof ilon 12-05-2023 Albumin [Mass/Vol] 3.1 g/dL Low 3.2-5.0 [facility] Comment on above: Order Comment: -1 Performed By: #### L 500.4050, L100.0500 #### [facility] [address] [place], [address] Albumin/Globulin [Mass ratio] 1.1 {ratio} Normal 0.9-2.4 [facility] Comment on above: Order Comment: - Performed By: #### L 500.4050, L100.0500 #### [facility] [address] [place], [address] ALK P 97 U/L Normal 45-117 [facility] Comment on above: Order Comment: - Performed By: #### L 500.4050, L100.0500 #### [facility] [address] [place], [address] ALT [Catalytic activity/Vol] 13 U/L Normal 13-56 [facility] Comment on above: Order Comment: Performed By: #### L 500.4050, L100.0500 #### [facility] [address] [place], [address] AST [Catalytic activity/Vol] 3 U/L Low 15-37 [facility] Comment on above: Order Comment: Performed By: #### L 500.4050, L100.0500 #### [facility] [address] [place], [address] Bilirubin [Mass/Vol] 1.20 mg/dL High 0.20-1.00 [facility] Comment on above: Order Comment: Result Comment: For patients on eltrombopag therapy, use of Dimension [place] TBIL is not recommended. Performed By: #### L 500.4050, L100.0500 #### [facility] [address] [place], [address] BUN/CRE 32.4 RATIO High 10-20 [facility] Comment on above: Order Comment: Performed By: #### L 500.4050, L100.0500 #### [facility] [address] [place], [address] CA,Total 9.5 mg/dL Normal 8.5-10.1 [facility] Comment on above: Order Comment: Performed By: #### L 500.4050, L100.0500 #### [facility] [address] [place], [address] Chloride [Moles/Vol] 105 mmol/L Normal 98-107 [facility] Comment on above: Order Comment: Performed By: #### L 500.4050, L100.0500 #### [facility] [address] [place], [address] CO2 [Moles/Vol] 28.0 mmol/L Normal 21.0-32.0 [facility] Comment on above: Order Comment: Performed By: #### L 500.4050, L100.0500 #### [facility] [address] [place], [address] Creatinine [Mass/Vol] 1.05 mg/dL High 0.55-1.02 [facility] Comment on above: Order Comment: Result Comment: The validity of the calculated GFR GFRAA in patients over 70 years has not been determined. Clinical correlation is essential. Performed By: #### L 500.4050, L100.0500 #### [facility] [address] [place], [address] EST GFR - AA 64 mL/min Normal >60 [facility] Comment on above: Order Comment: Result Comment: Afri can Ivorian GFR Calc Performed By: #### L 500.4050, L100.0500 #### [facility] [address] [place], [address] GAP 6 Normal 5-15 [facility] Comment on above: Order Comment: Performed By: #### L 500.4050, L100.0500 #### [facility] [address] [place], [address] GFR/1.73 sq M.predicted among non-blacks MDRD (S/P/Bld) [Vol rate/Area] 53 mL/min/{1.73_m2} Low >60 [facility] Comment on above: Order Comment: Result Comment: Non- GFR Calc Performed By: #### L 500.4050, L100.0500 #### [facility] [address] [place], [address] Globulin (S) [Mass/Vol] 2.7 g/dL Normal 2.2-4.2 [facility] Comment on above: Order Comment: Performed By: #### L 500.4050, L100.0500 #### [facility] [address] [place], [address] Glucose [Mass/Vol] 98 mg/dL Normal 74-106 [facility] Comment on above: Order Comment: Performed By: #### L 500.4050, L100.0500 #### [facility] [address] [place], [address] Potassium [Moles/Vol] 4.6 mmol/L Normal 3.5-5.1 [facility] Comment on above: Order Comment: Performed By: #### L 500.4050, L100.0500 #### [facility] [address] [place], [address] Sodium [Moles/Vol] 139 mmol/L Normal 136-145 [facility] Comment on above: Order Comment: Performed By: #### L 500.4050, L100.0500 #### [facility] [address] [place], [address] T PROT 5.8 g/dL Low 6.4-8.2 [facility] Comment on above: Order Comment: - Performed By: #### L 500.4050, L100.0500 #### [facility] [address] [place], [address] Urea nitrogen [Mass/Vol] 34 mg/dL High 7-18 [facility] Comment on above: Order Comment: - Performed By: #### L 500.4050, L100.0500 #### [facility] [address] [place], [address] Encounters Encounter Date Encounter Type Care Provider Facility Start: 09-24-2024 End: 09-24-2024 ambulatory Out of Town Doctor [facility] Work Phone: Start: 09-24-2024 End: 09-24-2024 [facility] Start: 09-24-2024 Registered [facility] Start: 09-24-2024 End: 09-24-2024 ambulatory Dev GUTIERREZ Facility:[facility] Start: 09-17-2024 End: 09-17-2024 ambulatory Out of Town Doctor [facility] Work Phone: Start: 09-17-2024 End: 09-17-2024 [facility] Start: 09-17-2024 [facility] Start: 09-17-2024 End: 09-17-2024 ambulatory Dev GUTIERREZ Facility:[facility] Start: 09-11-2024 End: 09-11-2024 ambulatory Out of Town Doctor [facility] Work Phone: Start: 09-11-2024 End: 09-11-2024 Departed Referred [facility] Start: 09-11-2024 Registered Ref[facility] Start: 09-11-2024 End: 09-11-2024 ambulatory Out of Town Doctor Facility:[facility] Start: 09-03-2024 End: 09-03-2024 ambulatory Out of Town Doctor [facility] Work Phone: Start: 09-03-2024 End: 09-03-2024 Departed Referred [facility]ierrez [facility] Start: 09-03-2024 End: 09-03-2024 ambulatory Out of Town Doctor Facility:[facility] Start: 08-13-2024 End: 08-13-2024 ambulatory Out of Town Doctor [facility] Work Phone: Start: 08-13-2024 End: 08-13-2024 Departed Referred Jack Rutledge [facility] Start: 08-13-2024 Registered Referred [facility] Start: 08-13-2024 End: 08-13-2024 ambulatory Jack Rutledge OLS Facility:[facility] Start: 07-30-2024 End: 07-30-2024 ambulatory Out of Town Doctor [facility] Work Phone: Start: 07-30-2024 End: 07-30-2024 [facility] Start: 07-30-2024 Registered Referred Dev Gutierrez [facility] Start: 07-30-2024 End: 07-30-2024 ambulatory Out of Town Doctor Facility:[facility] Start: 07-24-2024 End: 07-24-2024 Departed Referred Dev Gutierrez [facility] Start: 07-24-2024 End: 07-24-2024 ambulatory Out of Town Doctor [facility] Work Phone: Start: 07-11-2024 End: 07-11-2024 ambulatory Out of Town Doctor [facility] Work Phone: Start: 07-11-2024 End: 07-11-2024 [facility] Start: 07-11-2024 Registered Referred Dev Deperro [facility] Start: 07-11-2024 End: 07-11-2024 ambulatory Out of Town Doctor Facility:[facility] Start: 07-06-2024 ambulatory Dev GUTIERREZ Facili ty:[facility] Start: 07-06-2024 Registered Referred Dev Gutierrez [facility] Start: 07-02-2024 ambulatory Dev GUTIERREZ Facili ty:[facility] Start: 07-02-2024 Registered Referred Dev Gutierrez [facility] Start: 05-21-2024 ambulatory Dev GUTIERREZ Facili ty:[facility] Start: 05-21-2024 Registered Referred Dev Gutierrez [facility] Start: 05-17-2024 ambulatory Out of Town Doctor Faci lity:[facility] Start: 05-17-2024 Registered [facility] Start: 05-04-2024 End: 05-04-[address] Rachele Velasquez MD -Radiology, [place] Work Phone: Start: 05-04-2024 End: 05-04-2024 ambulatory Out of Town Doctor Facility:[facility] Start: 04-23-2024 End: 04-23-2024 Departed Referred [facility] Start: 04-23-2024 End: 04-23-2024 ambulatory Dev GUTIERREZ Facility:[facility] Start: 04-06-2024 ambulatory Out of Town Doctor Faci lity:[facility] Start: 03-20-2024 End: 03-20-2024 ambulatory Dev GUTIERREZ Facility:[facility] Start: 03-09-2024 End: 03-09-2024 ambulatory Dev GUTIERREZ Facility:[facility] Start: 03-08-2024 End: 03-08-2024 ambulatory Dev GUTIERREZ Facility:[facility] Start: 03-07-2024 End: 03-07-2024 Telephone encounter Lev Li MD Work Phone: [facility] Start: 03-07-2024 End: 03-07-2024 ambulatory Dev Depmegano OLS Facility:[facility] Start: 03-06-2024 End: 03-06-2024 ambulatory Dev Deperro OLS Facility:[facility] Start: 02-27-2024 End: 02-27-2024 ambulatory Dev Deperro OLS Facility:[facility] Start: 01-23-2024 ambulatory Dev Depmegano OLS Facili ty:[facility] Start: 01-18-2024 ambulatory Dev Deperro OLS Facili ty:[facility] Start: 01-17-2024 ambulatory Dev Deperro OLS Facili ty:[facility] Start: 12-20-2023 End: 12-20-2023 ambulatory Dev Deperro OLS Facility:[facility] Start: 12-05-2023 End: 12-05-2023 ambulatory Dev Depmegano OLS Facility:[facility] Procedures Date Procedure Procedure Detail Performing Clinician Start: 09-16-2024 Urnls dip stick/tabl et reagent auto microscopy [facility] Town Doctor Start: 09-16-2024 Urine culture Out Town Doctor Start: 09-03-2024 SARS-CoV-2, Influenz a & RSV (PCR) Out Town Doctor Start: 07-24-2024 Urine culture Out Town Doctor Start: 07-24-2024 Urnls dip stick/tabl et reagent auto microscopy Out Town Doctor Start: 07-11-2024 Urine culture Out Town Doctor Start: 07-11-2024 Urnls dip stick/tabl et reagent auto microscopy [facility] Doctor Start: 07-06-2024 Measurement of renal function Out Town Doctor Comment on above: GFR Calc Start: 07-02-2024 Measurement of renal function Out Town Doctor Comment on above: GFR Calc Start: 05-04-2024 Plain X-ray abdomen [facility] Immunizations Immunization Date Immunization Notes Care Provider [facility] 02-26-2015 pneumococcal polysaccharide vaccine, 23 valent [facility] 02-12-2015 Influenza virus vaccine [facility] Payers Date Payer Category Payer Medicare [id number] 2023 Medicare [id number] 2023 Self-pay 2023 Unknown [id number] 2014 Private Health Insurance [employer] RAYMUNDO MEB JSCZR [id number] 1997 Medicare MEDICARE [id number] Medicare [employer] MEDICARE PPO [id number] Unknown [id number] 2.16.840.1.744265.3.579.2. 462 Unknown [id number] 2.16840.1.732148.3.579.2. 462 Unknown [id number] 2.16.840.1.284605.3.579.2. 462 Unknown [id number] 2.16.840.1.881663.3.579.2. 462 Unknown [id number] 2.16.840.1.601688.3.579.2. 462 Unknown [id number] 2.16.840.1.567161.3.579.2. 462 Unknown [id number] 2.16.840.1.332987.3.579.2. 462 Unknown [id number] 2.16.840.1.534424.3.579.2. 462 Unknown [id number] 2.16.840.1.515886.3.579.2. 462 Unknown [id number] 2.16.840.1.189266.3.579.2. 462 Unknown [id number] 2.16.840.1.630917.3.579.2. 462 Unknown [id number] 2.16.840.1.044888.3.579.2. 462 Unknown [id number] 2.16.840.1.420338.3.579.2. 462 Unknown [id number] 2.16.840.1.769651.3.579.2. 462 Unknown [id number] 2.16840.1.997298.3.579.2. 462 Unknown [id number] 2.16840.1.635737.3.579.2. 462 Unknown [id number] 2.840.1.794420.3.579.2. 462 Unknown [id number] 2.840.1.823305.3.579.2. 462 Unknown [id number] 2.840.1.157081.3.579.2. 462 Unknown [id number] 2.840.1.418179.3.579.2. 462 Unknown [id number] 2.840.1.470787.3.579.2. 462 Unknown [id number] 2.840.1.089165.3.579.2. 462 Unknown [id number] 2.840.1.144201.3.579.2. 462 Unknown [id number] 2.840.1.327415.3.579.2. 462 Unknown [id number] 2.840.1.617502.3.579.2. 462 Unknown [id number] 2.840.1.905045.3.579.2. 462 Unknown [id number] 2.840.1.324256.3.579.2. 462 Social History Date Type Detail Facility Tobacco smoking stat [facility] Tobacco smoking consumption unknown [facility] Start: 1940 Sex assigned at Not on file [facility] Gender identity Not on file [facility] are Start: 04-22-2015 Tobacco smoking stat us [facility] Never smoked tobacco (finding) [facility] Start: 04-06-2015 None None [facility] Start: 04-06-2015 Spouse/ Significant Other Spouse/ Significant Other [facility] Start: 08-16-2024 End: 08-30-2024 Sex Female (finding) [facility] Start: 1940 Sex Assigned At Female [facility] Telephone encounter Note 03-07-2024 Telephone Encounter - Анна Batista - 03/07/2024 2:04 PM EDT Note Date & Type Note Facility 03-07-2024 Telephone encount er Note Recd referral from [facility] to schedule a new pt appt, when I called the facility today-03/07/24- I was informed by the call center receptionist that they had already made her an appt closer to their facility and to disregard this referral [facility] Note 03-07-2024 Telephone Encounter - Анна Batista - 03/07/2024 2:04 PM EDT Note Date & Type Note Facility 03-07-2024 Miscellaneous Notes Formattin g of this note might be different from the original. Recd referral from [facility] to schedule a new pt appt, when I called the facility today-03/07/24- I was informed by the call center receptionist that they had already made her an appt closer to their facility and to disregard this referral documented in this encounter [facility] Evaluation note Note Date & Type Note Facility Evaluation note No assessment information availa ble [facility] Work Phone: Reason for referral (narrative) Note Date & Type Note Facility Reason for referral (narrative) No reason for referral information available [facility] Work Phone: Chief Complaint and Reason for Visit Chief Complaint Admit Date LABWORK April 23, 2024 5 :00am [facility] May 04, 2024 3:07pm INTERMEDIATE LAB WORK May 17, 2024 9:42pm LABWORK May 21, 2024 5: 00am LABWORK July 02, 2024 5:00am LABWORK July 06, 2024 5:00am LABWORK July 11, 2024 5:00am INTERMEDIATE LAB WORK July 11 1:00pm INTERMEDIATE LAB WORK July 24, 2024 1 :00am Chief Complaint Admit Date LABWORK April 23, 2024 5 :00am [facility] May 04, 2024 3:07pm INTERMEDIATE LAB WORK May 17, 2024 9:42pm LABWORK May 21, 2024 5: 00am LABWORK July 02, 2024 5:00am LABWORK July 06, 2024 5:00am LABWORK July 11, 2024 5:00am INTERMEDIATE LAB WORK July 11 1:00pm INTERMEDIATE LAB WORK July 24, 2024 1 :00am INTERMEDIATE LAB WORK July 30, 2024 5 :00am Chief Complaint Admit Date [facility] May 04, 2024 3:07pm INTERMEDIATE LAB WORK May 17, 2024 9:42pm LABWORK May 21, 2024 5: 00am LABWORK July 02, 2024 5:00am LABWORK July 06, 2024 5:00am LABWORK July 11, 2024 5:00am INTERMEDIATE LAB WORK July 11 1:00pm INTERMEDIATE LAB WORK July 24, 2024 1 :00am INTERMEDIATE LAB WORK July 30, 2024 5 :00am LABWORK August 13, 2024 5:0 0am Chief Complaint Admit Date LABWORK July 02, 2024 5:00am LABWORK July 06, 2024 5:00am LABWORK July 11, 2024 5:00am INTERMEDIATE LAB WORK July 11 1:00pm INTERMEDIATE LAB WORK July 24, 2024 1 :00am INTERMEDIATE LAB WORK July 30, 2024 5 :00am LABWORK August 13, 2024 5:0 0am INTERMEDIATE LAB WORK September 03, 2024 5 :00am Chief Complaint Admit Date LABWORK July 02, 2024 5:00am LABWORK July 06, 2024 5:00am LABWORK July 11, 2024 5:00am INTERMEDIATE LAB WORK July 11 1:00pm INTERMEDIATE LAB WORK July 24, 2024 1 :00am INTERMEDIATE LAB WORK July 30, 2024 5 :00am LABWORK August 13, 2024 5:0 0am INTERMEDIATE LAB WORK September 03, 2024 5 :00am LABWORK September 24, 2024 5:00a m Chief Complaint Admit Date LABWORK July 02, 2024 5:00am LABWORK July 06, 2024 5:00am LABWORK July 11, 2024 5:00am INTERMEDIATE LAB WORK July 11 1:00pm INTERMEDIATE LAB WORK July 24, 2024 1 :00am INTERMEDIATE LAB WORK July 30, 2024 5 :00am LABWORK August 13, 2024 5:0 0am INTERMEDIATE LAB WORK September 03, 2024 5 :00am INTERMEDIATE LAB WORK September 11, 2024 4 :00am INTERMEDIATE LAB WORK September 17, 2024 5:00 am LABWORK September 24, 2024 5:00a m Family History Relationship Condition Age at Onset Recorded Date/T sahil Unknown Family History?No pe rtinent history Unknown April 06, 2015 6:21am Family History?No pe rtinent history Unknown April 06, 2015 6:21am Advance Directives Advance Directive Response Recorded Date/ Time Advance Directives Yes April 22, 2015 4:08pm Summary Purpose Additional Source Comments Care Teams (unrecognized sec tion and content) 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 Relationship Specialty Start Date End Date Dev Gutierrez Sr., MD [address] [place] [address] [phone] PCP - General Internal Medicine 03/06/24 Team Status: Active Member Role Status Dates [facility] Family Provider Active Out of [facility] Doctor Primary Care Provider Active Team Status: Inactive Member Role Status Dates Out of [facility] Doctor Primary Care Provider Active Start: April 23, 2024 End: April 23, 2024 Dev Brenda GUTIERREZ MD Attending Provider Active S tart: April 23, 2024 End: April 23, 2024 Team Status: Inactive Member Role Status Dates Out of [facility] Doctor Primary Care Provider Active Start: May 04, 2024 End: May 04, 2024 Dr. Rachele Velasquez MD Attending Provider Active Start: May 04, 2024 End: May 04, 2024 Dr. Rachele Velasquez MD Referring Provider Active Start: May 04, 2024 End: May 04, 2024 Team Status: Active Member Role Status Dates Out of [facility] Primary Care Provider Active Start: May 17, 2024 Dev GUTIERREZ MD Attending Provider Active S tart: May 17, 2024 Dev GUTIERREZ MD Referring Provider Active S tart: May 17, 2024 Team Status: Active Member Role Status Dates Out of [facility] Primary Care Provider Active Start: May 21, 2024 Dev GUTIERREZ MD Attending Provider Active S tart: May 21, 2024 Team Status: Active Member Role Status Dates Out of [facility] Primary Care Provider Active Start: July 02, 2024 Dev GUTIERREZ MD Attending Provider Active S tart: July 02, 2024 Team Status: Active Member Role Status Dates Out of [facility] Primary Care Provider Active Start: July 06, 2024 Dev GUTIERREZ MD Attending Provider Active S tart: July 06, 2024 Team Status: Active Member Role Status Dates Out of [facility] Primary Care Provider Active Start: July 11, 2024 Dev GUTIERREZ MD Attending Provider Active S tart: July 11, 2024 Team Status: Inactive Member Role Status Dates Out of [facility] Primary Care Provider Active Start: July 24, 2024 End: July 24, 2024 Dev GUTIERREZ MD Attending Provider Active S tart: July 24, 2024 End: July 24, 2024 Team Status: Active Member Role Status Dates Out of [facility] Primary Care Provider Active Start: July 30, 2024 Dev GUTIERREZ MD Attending Provider Active S tart: July 30, 2024 Team Status: Active Member Role Status Dates Out of [facility] Primary Care Provider Active Start: August 13, 2024 Jack GUTIERREZ Attending Provider Active Star t: August 13, 2024 Team Status: Inactive Member Role Status Dates Out of [facility] Primary Care Provider Active Start: July 11, 2024 End: July 11, 2024 Dev GUTIERREZ MD Attending Provider Active S tart: July 11, 2024 End: July 11, 2024 Team Status: Inactive Member Role Status Dates Out of Town Doctor Primary Care Provider Active Start: July 30, 2024 End: July 30, 2024 Dev GUTIERREZ MD Attending Provider Active S tart: July 30, 2024 End: July 30, 2024 Team Status: Inactive Member Role Status Dates Out of [facility] Primary Care Provider Active Start: August 13, 2024 End: August 13, 2024 Jack GUTIERREZ Attending Provider Active Star t: August 13, 2024 End: August 13, 2024 Team Status: Inactive Member Role Status Dates Out of [facility] Primary Care Provider Active Start: September 03, 2024 End: September 03, 2024 Dev GUTIERREZ MD Attending Provider Active S tart: September 03, 2024 End: September 03, 2024 Team Status: Active Member Role Status Dates Out of [facility] Primary Care Provider Active Start: September 11, 2024 Dev GUTIERREZ MD Attending Provider Active S tart: September 11, 2024 Team Status: Active Member Role Status Dates Out of [facility] Primary Care Provider Active Start: September 17, 2024 Dev GUTIERREZ MD Attending Provider Active S tart: September 17, 2024 Team Status: Active Member Role Status Dates Out of [facility] Primary Care Provider Active Start: September 24, 2024 Dev GUTIERREZ MD Attending Provider Active S tart: September 24, 2024 Team Status: Inactive Member Role Status Dates Out of [facility] Primary Care Provider Active Start: September 24, 2024 End: September 24, 2024 Dev GUTIERREZ MD Attending Provider Active S tart: September 24, 2024 End: September 24, 2024 Team Status: Inactive Member Role Status Dates Out of [facility] Primary Care Provider Active Start: September 11, 2024 End: September 11, 2024 Dev GUTIERREZ MD Attending Provider Active S tart: September 11, 2024 End: September 11, 2024 Dev GUTIERREZ MD Referring Provider Active S tart: September 11, 2024 End: September 11, 2024 Team Status: Inactive Member Role Status Dates Out of [facility] Primary Care Provider Active Start: September 17, 2024 End: September 17, 2024 Dev GUTIERREZ MD Attending Provider Active S tart: September 17, 2024 End: September 17, 2024 Goals (unrecognized section and content) Goals may be documented in a n alternate sectionGoals may be documented in an alternate sectionGoals may be documented in an alternate sectionGoals may be documented in an alternate sectionGoals may be documented in an alternate sectionGoals may be documented in an alternate sectionGoals may be documented in an alternate sectionGoals may be documented in an alternate sectionGoals may be documented in an alternate section INFORMATION SOURCE (unrecogn ized section and content) DATE CREATED AUTHOR 10/18/2024 [facility] FOR RECORDS PERTAINING TO PATIENTS WHO ARE OR HAVE BEEN ENROLLED IN A CHEMICAL DEPENDENCY/SUBSTANCEABUSE PROGRAM, SOME INFORMATION MAY BE OMITTED. This clinical summary was aggregated from multiple sources. Caution should be exercised in using it in the provision of clinical care. This summary normalizes information from multiple sources, and as a consequence, information in this document may materially change the coding, format and clinical context of patient data. In addition, data may be omitted in some cases. CLINICAL DECISIONS SHOULD BE BASED ON THE PRIMARY CLINICAL RECORDS. [employer] provides no warranty or guarantee of the accuracy or completeness of information in this document.
--- OUTSIDE RECORDS SUMMARY | 2024-11-05 03:37 | XMS RPT_ITS | CCD ---
Author Organization [facility] Care Team Providers Care Technical Account Executive Name Role Phone Brenda Hardy MD, Dev Primary Care Provider [facility], Out of Primary Care Provider Johnny Gutierrez MD, Dev Attending Provider Unavailable Eva BALDWIN, Dr. Jeffrey Attending Provider [phone] [address]. Rachele Velasquez MD Referring Provider Brenda [...] [facility], Out of Primary Care Unavailable [facility] Attending Johnny GUTIERREZ, Dev Attending [...] (9 sources) Cephalexin Drug Allergy 05-17-2015 Rash [facility] (1 source) Cephalexin Drug Allergy 05-17-2015 [facility] Repository Medications Current Medications Medication Drug [...] D2) (Vitamin D2) 50,000 UNIT capsule Discontinued 17518 U PO TU April 22, 2015 1:53pm [...] 09-24-2024 TSH Qn 6.110 uIU/mL High 0.300-4.200 [facility] Thyroid Stim Hormone (TSH)on 09-24-2024 TSH 6.110 uIU/mL High 0.300-4.200 [facility] Comment on above: Order Comment: 209-1 Performed By: #### L 500.4050, L501.9520, L100.0500 #### [facility] Laboratory [address] [place], [address] Urine Cultureon 09-19-2024 [facility]RC Presumptive E. coli [place] Count >100,000 Presumptive E. coli: REACTION Ampicillin [...] TMP SMX Islt PARMINDER <=20 S Normal [facility] Comment on above: Performed By: #### L 100.0500, L500.2500 #### [facility] [address] [place], [address] Anion gap in Serum or Plasma Ordered By: Dev Gutierrez on 09-17-2024 Anion gap [Moles/Vol] 10 mmol/L 5-15 [facility] BUN/creatinine ratioOrdered By: Dev Gutierrez on 09-17-2024 Urea nitrogen/Creatinine [Mass ratio] 22.4 mg/mg High [address] [place] [address] Basic Metabolic Profile (BMP )on 09-17-2024 BUN/CRE 22.4 RATIO High [address] [place] [address] Comment on above: Order Comment: Performed By: #### L 100.0500, L500.2500 #### [facility] [address] [place], [address] Calcium [Mass/Vol] 9.6 mg/dL Normal 7.6-11.0 [facility] Comment on above: Order Comment: Performed By: #### L 100.0500, L500.2500 #### [facility] [address] [place], [address] Chloride [Moles/Vol] 107 mmol/L Normal 98-108 [facility] Comment on above: Order Comment: Performed By: #### L 100.0500, L500.2500 #### [facility] [address] [place], [address] CO2 [Moles/Vol] 24.3 mmol/L Normal 21.0-32.0 [facility] Comment on above: Order Comment: Performed By: #### L 100.0500, L500.2500 #### [facility] [address] [place], [address] Creatinine [Mass/Vol] 1.14 mg/dL Normal 0.70-1.20 [facility] Comment on above: Order Comment: Performed By: #### L 100.0500, L500.2500 #### [facility] [address] [place], [address] GAP 10 Normal 5-15 [facility] Comment on above: Order Comment: Performed By: #### L 100.0500, L500.2500 #### [facility] [address] [place], [address] GFR/1.73 sq M.predicted among non-blacks MDRD (S/P/Bld) [Vol rate/Area] 48 mL/min/{1.73_m2} Low >60 [facility] Comment on above: Order Comment: Result Comment: mL/m in/1.73m2 CKD-EPI Creatinine Equation (2020) Performed By: #### L 100.0500, L500.2500 #### [facility] [address] [place], [address] Glucose [Mass/Vol] 98 mg/dL Normal 70-99 [facility] Comment on above: Order Comment: Performed By: #### L 100.0500, L500.2500 #### [facility] [address] [place], [address] Potassium [Moles/Vol] 4.3 mmol/L Normal 3.3-5.1 [facility] Comment on above: Order Comment: Performed By: #### L 100.0500, L500.2500 #### [facility] [address] [place], [address] Sodium [Moles/Vol] 141 mmol/L Normal 133-145 [facility] Comment on above: Order Comment: Performed By: #### L 100.0500, L500.2500 #### [facility] [address] [place], [address] Urea nitrogen [Mass/Vol] 26 mg/dL High 4-19 [facility] Comment on above: Order Comment: Performed By: #### L 100.0500, L500.2500 #### [facility] [address] [place], [address] CBC-Complete Blood Cnt No Di ffon 09-17-2024 Erythrocyte distribution width (RBC) [Ratio] 13.2 % Normal 11.6-14.6 [facility] Comment on above: Order Comment: Performed By: #### L 100.0500, L500.2500 #### [facility] [address] [place], [address] Hematocrit (Bld) [Volume fraction] 32.3 % Low 37-47 [facility] Comment on above: Order Comment: Performed By: #### L 100.0500, L500.2500 #### [facility] [address] [place], [address] Hemoglobin (Bld) [Mass/Vol] 10.7 g/dL Low 12.0-15.0 [facility] Comment on above: Order Comment: Performed By: #### L 100.0500, L500.2500 #### [facility] [address] [place], [address] MCH (RBC) [Entitic mass] 32.4 pg High 27.0-32.0 [facility] Comment on above: Order Comment: - Performed By: #### L 100.0500, L500.2500 #### [facility] [address] [place], [address] MCHC (RBC) [Mass/Vol] 33.1 g/dL Normal 32-36 [facility] Comment on above: Order Comment: - Performed By: #### L 100.0500, L500.2500 #### [facility] [address] [place], [address] MCV (RBC) [Entitic vol] 97.9 fL Normal 81-99 [facility] Comment on above: Order Comment: - Performed By: #### L 100.0500, L500.2500 #### [facility] Laboratory [address] [place], [address] Platelet mean volume (Bld) [Entitic vol] 10.1 fL Normal 6.2-12.0 [facility] Comment on above: Order Comment: Performed By: #### L 100.0500, L500.2500 #### [facility] [address] [place], [address] Platelets (Bld) [#/Vol] 144 10*3/uL Low 150-450 [facility] Comment on above: Order Comment: - Performed By: #### L 100.0500, L500.2500 #### [facility] [address] [place], [address] RBC (Bld) [#/Vol] 3.30 10*6/uL Low 4.2-5.4 [facility] Comment on above: Order Comment: - Performed By: #### L 100.0500, L500.2500 #### [facility] [address] [place], [address] RDW SD 47.2 fl High 35.1-43.9 [facility] Comment on above: Order Comment: Performed By: #### L 100.0500, L500.2500 #### [facility] [address] [place] [place], [address] WBC (Bld) [#/Vol] 5.1 10*3/uL Normal 4.4-11.0 [facility] Comment on above: Order Comment: Performed By: #### L 100.0500, L500.2500 #### [facility] [address] [place], [address] Carbon dioxide, total [Moles /volume] in Central venous bloodOrdered By: Dev Gutierrez on 09-17-2024 CO2 [Moles/Vol] 24.3 mmol/L 21.0-32.0 [facility] Chloride assayOrdered By: Morris on 09-17-2024 Chloride [Moles/Vol] 107 mmol/L 98-108 [facility] Erythrocyte distribution wid th ratioOrdered By: Dev Gutierrez on 09-17-2024 Erythrocyte distribution width (RBC) [Ratio] 13.2 % 11.6-14.6 [facility] Erythrocyte distribution wid th standard deviationOrdered By: Dev Gutierrez on 09-17-2024 Erythrocyte distribution width (RBC) [Ratio] 47.2 fl High 35.1-43.9 [facility] Glomerular filtration rate ( GFR) estimation/1.73 sq m using serum, plasma, or whole bOrdered By: Dev Gutierrez on 09-17-2024 GFR/1.73 sq M.predicted among non-blacks MDRD (S/P/Bld) [Vol rate/Area] 48 mL/min/{1.73_m2} Low >60 [facility] Comment on above: mL/min/1.73m2 CKD-EP I Creatinine Equation (2020) Hematocrit Auto (Bld) [Volum e fraction]Ordered By: Dev Gutierrez on 09-17-2024 Hematocrit (Bld) [Volume fraction] 32.3 % Low 37-47 [facility] Hemoglobin measurementOrdere d By: Dev Gutierrez on 09-17-2024 Hemoglobin (Bld) [Mass/Vol] 10.7 g/dL Low 12.0-15.0 [facility] MCV (mean corpuscular volume ) determinationOrdered By: Dev Gutierrez on 09-17-2024 MCV (RBC) [Entitic vol] 97.9 fL 81-99 [facility] Mean corpuscular hemoglobin (MCH) determinationOrdered By: Dev Gutierrez on 09-17-2024 MCH (RBC) [Entitic mass] 32.4 pg High 27.0-32.0 [facility] Mean corpuscular hemoglobin concentration (MCHC) determinationOrdered By: Dev Gutierrez on 09-17-2024 MCHC (RBC) [Mass/Vol] 33.1 g/dL 32-36 [facility] Mean platelet volume determi nationOrdered By: Dev Gutierrez on 09-17-2024 Platelet mean volume (Bld) [Entitic vol] 10.1 fL 6.2-12.0 [facility] Platelet countOrdered By: Morris on 09-17-2024 Platelets (Bld) [#/Vol] 144 10*3/uL Low 150-450 [facility] Potassium measurement (mass/ volume)Ordered By: Dev Gutierrez on 09-17-2024 Potassium (Unsp spec) [Mass/Vol] 4.3 mmol/L 3.3-5.1 [facility] RBC Auto (Bld) [#/Vol]Ordere d By: Dev Gutierrez on 09-17-2024 RBC (Bld) [#/Vol] 3.30 10*6/uL Low 4.2-5.4 [facility] Serum creatinine measurement (mass/volume)Ordered By: Dev Gutierrez on 09-17-2024 Creatinine [Mass/Vol] 1.14 mg/dL 0.70-1.20 [facility] Serum glucose measurement (m ass/volume)Ordered By: Dev Gutierrez on 09-17-2024 Glucose [Mass/Vol] 98 mg/dL 70-99 [facility] Serum or plasma calcium maude urement (mass/volume)Ordered By: Dev Gutierrez on 09-17-2024 Calcium [Mass/Vol] 9.6 mg/dL 7.6-11.0 [facility] Serum or plasma urea nitroge n measurement (mass/volume)Ordered By: Dev Gutierrez on 09-17-2024 Urea nitrogen [Mass/Vol] 26 mg/dL High 4-19 [facility] Sodium levelOrdered By: Dev Gutierrez on 09-17-2024 Sodium [Moles/Vol] 141 mmol/L 133-145 [facility] Urinalysis, Completeon 09-17 BACTERIA 1+ /hpf Normal None Seen [facility] Comment on above: Order Comment: Performed By: #### L 100.0500, L500.2500 #### [facility] [address] [place], [address] EPI,SQUAMOUS 0-5 SEEN Normal 5-10 [facility] Comment on above: Order Comment: Performed By: #### L 100.0500, L500.2500 #### [facility] [address] [place], [address] WBC 25-50 SEEN Normal 0-5 [facility] Comment on above: Order Comment: Performed By: #### L 100.0500, L500.2500 #### [facility] [address] [place], [address] Mucus Ql (Urine sed) 0 SEEN Normal [facility] Comment on above: Order Comment: Performed By: #### L 100.0500, L500.2500 #### [facility] [address] [place], [address] RBC 0 SEEN Normal 0-5 [facility] Comment on above: Order Comment: Performed By: #### L 100.0500, L500.2500 #### [facility] [address] [place], [address] White blood cell (WBC) count Ordered By: Dev Gutierrez on 09-17-2024 WBC (Bld) [#/Vol] 5.1 10*3/uL 4.4-11.0 [facility] Bilirubin Test strip Ql (U)O rdered By: Dev Gutierrez on 09-16-2024 Bilirubin Ql (U) Negative Negative [facility] Ketones Test strip Ql (U)Ord ered By: Dev Gutierrez on 09-16-2024 Ketones Ql (U) Negative Negative [facility] Microscopic analysis of urin e for red blood cells (RBC)Ordered By: Dev Gutierrez on 09-16-2024 Microscopic analysis of urine for red blood cells (RBC) 0 SEEN /hpf 0-5 [facility] Mucus LM Ql (Urine sed)Order ed By: Dev Gutierrez on 09-16-2024 Mucus Ql (Urine sed) 0 SEEN /hpf [facility] Nitrite Test strip Ql (U)Ord ered By: Dev Gutierrez on 09-16-2024 Nitrite Ql (U) Positive High Negative [facility] Protein Test strip Ql (U)Ord ered By: Dev Gutierrez on 09-16-2024 Protein Ql (U) 15 mg/dl High Negative [facility] Squamous epithelial cells de tection in urine sediment by light microscopyOrdered By: Dev Gutierrez on 09-16-2024 Epithelial cells.squamous LM Ql (Urine sed) 0-5 SEEN /hpf 5-10 [facility] Urine clarityOrdered By: Danielle Gutierrez on 09-16-2024 Clarity (U) Clear Clear [facility] Urine color determinationOrd ered By: Dev Gutierrez on 09-16-2024 Color (U) Yellow Yellow [facility] Urine cultureOrdered By: Danielle Gutierrez on 09-16-2024 Bacteria identified Cx Nom (U) Presumptive E. coli Abnormal [facility] Urine glucose detectionOrder ed By: Dev Gutierrez on 09-16-2024 Glucose Ql (U) Normal mg/dl Normal [facility] Urine leukocyte esterase det ection by dipstickOrdered By: Dev Gutierrez on 09-16-2024 Leukocyte esterase Test strip Ql (U) 500 /ul High Negative [facility] Urine pHOrdered By: Dev rodriguez on 09-16-2024 pH (U) 6.0 [pH] 5.0 - 8.0 [facility] Urine sediment bacteria coun t by microscopy (number/high power field)Ordered By: Dev Gutierrez on 09-16-2024 Bacteria LM.HPF (Urine sed) [#/Area] 1 /[HPF] None Seen [facility] Urine specific gravity measu rementOrdered By: Dev Gutierrez on 09-16-2024 Specific gravity (U) [Rel density] 1.010 1.002-1.030 [facility] Urine urobilinogen measureme ntOrdered By: Dev Gutierrez on 09-16-2024 Urobilinogen Ql (U) Normal mg/dl Normal [facility] White blood cell countOrdere d By: Dev Gutierrez on 09-16-2024 White blood cell count 25-50 SEEN /hpf 0-5 [facility] Serum or plasma uric acid me asurement (mass/volume)Ordered By: Dev Gutierrez on 09-11-2024 Urate [Mass/Vol] 3.0 mg/dL 2.6-6.0 [facility] Comment on above: The drugs N-Acetylcy steine and Metamizole may falsely depress this assay. Uric Acidon 09-11-2024 URIC 3.0 mg/dL Normal 2.6-6.0 [facility] Comment on above: Order Comment: 209-1 Result Comment: The drugs N-Acetylcysteine and Metamizole may falsely depress this assay. Performed By: #### L 500.4050, L501.9520, L100.0500 #### [facility] [address] [place], [address] Anion gap in Serum or Plasma Ordered By: Dev Gutierrez on 09-03-2024 Anion gap [Moles/Vol] 9 mmol/L 5-15 [facility] BUN/creatinine ratioOrdered By: Dev Gutierrez on 09-03-2024 Urea nitrogen/Creatinine [Mass ratio] 28.9 mg/mg High 10-20 [facility] Basic Metabolic Profile (BMP )on 09-03-2024 BUN/CRE 28.9 RATIO High 10-20 [facility] Comment on above: Order Comment: Performed By: #### L 100.0500, L500.2500 #### [facility] [address] [place], [address] Calcium [Mass/Vol] 9.4 mg/dL Normal 7.6-11.0 [facility] Comment on above: Order Comment: - Performed By: #### L 100.0500, L500.2500 #### [facility] [address] [place], [address] Chloride [Moles/Vol] 108 mmol/L Normal 98-108 [facility] Comment on above: Order Comment: Performed By: #### L 100.0500, L500.2500 #### [facility] [address] [place], [address] CO2 [Moles/Vol] 24.7 mmol/L Normal 21.0-32.0 [facility] Comment on above: Order Comment: Performed By: #### L 100.0500, L500.2500 #### [facility] [address] [place], [address] Creatinine [Mass/Vol] 1.08 mg/dL Normal 0.70-1.20 [facility] Comment on above: Order Comment: Performed By: #### L 100.0500, L500.2500 #### [facility] [address] [place], [address] GAP 9 Normal 5-15 [facility] Comment on above: Order Comment: Performed By: #### L 100.0500, L500.2500 #### [facility] [address] [place], [address] GFR/1.73 sq M.predicted among non-blacks MDRD (S/P/Bld) [Vol rate/Area] 51 mL/min/{1.73_m2} Low >60 [facility] Comment on above: Order Comment: Result Comment: mL/m in/1.73m2 CKD-EPI Creatinine Equation (2020) Performed By: #### L 100.0500, L500.2500 #### [facility] [address] [place], [address] Glucose [Mass/Vol] 109 mg/dL High 70-99 [facility] Comment on above: Order Comment: Performed By: #### L 100.0500, L500.2500 #### [facility] [address] [place], [address] Potassium [Moles/Vol] 4.3 mmol/L Normal 3.3-5.1 [facility] Comment on above: Order Comment: Performed By: #### L 100.0500, L500.2500 #### [facility] [address] [place], [address] Sodium [Moles/Vol] 142 mmol/L Normal 133-145 [facility] Comment on above: Order Comment: Performed By: #### L 100.0500, L500.2500 #### [facility] [address] [place], [address] Urea nitrogen [Mass/Vol] 31 mg/dL High 4-19 [facility] Comment on above: Order Comment: Performed By: #### L 100.0500, L500.2500 #### [facility] [address] [place], [address] CBC-Complete Blood Cnt No Di ffon 09-03-2024 Erythrocyte distribution width (RBC) [Ratio] 13.6 % Normal 11.6-14.6 [facility] Comment on above: Order Comment: Performed By: #### L 100.0500, L500.2500 #### [facility] [address] [place], [address] Hematocrit (Bld) [Volume fraction] 29.9 % Low 37-47 [facility] Comment on above: Order Comment: - Performed By: #### L 100.0500, L500.2500 #### [facility] [address] [place], [address] Hemoglobin (Bld) [Mass/Vol] 9.5 g/dL Low 12.0-15.0 [facility] Comment on above: Order Comment: Performed By: #### L 100.0500, L500.2500 #### [facility] [address] [place], [address] MCH (RBC) [Entitic mass] 31.0 pg Normal 27.0-32.0 [facility] Comment on above: Order Comment: Performed By: #### L 100.0500, L500.2500 #### [facility] [address] [place], [address] MCHC (RBC) [Mass/Vol] 31.8 g/dL Low 32-36 [facility] Comment on above: Order Comment: Performed By: #### L 100.0500, L500.2500 #### [facility] [address] [place], [address] MCV (RBC) [Entitic vol] 97.7 fL Normal 81-99 [facility] Comment on above: Order Comment: Performed By: #### L 100.0500, L500.2500 #### [facility] [address] [place], [address] Platelet mean volume (Bld) [Entitic vol] 10.3 fL Normal 6.2-12.0 [facility] Comment on above: Order Comment: Performed By: #### L 100.0500, L500.2500 #### [facility] [address] [place], [address] Platelets (Bld) [#/Vol] 145 10*3/uL Low 150-450 [facility] Comment on above: Order Comment: Performed By: #### L 100.0500, L500.2500 #### [facility] [address] [place], [address] RBC (Bld) [#/Vol] 3.06 10*6/uL Low 4.2-5.4 [facility] Comment on above: Order Comment: Performed By: #### L 100.0500, L500.2500 #### [facility] [address] [place], [address] RDW SD 48.5 fl High 35.1-43.9 [facility] Comment on above: Order Comment: Performed By: #### L 100.0500, L500.2500 #### [facility] [address] [place], [address] WBC (Bld) [#/Vol] 5.0 10*3/uL Normal 4.4-11.0 [facility] Comment on above: Order Comment: Performed By: #### L 100.0500, L500.2500 #### [facility] [address] [place], [address] Carbon dioxide, total [Moles /volume] in Central venous bloodOrdered By: Dev Gutierrez on 09-03-2024 CO2 [Moles/Vol] 24.7 mmol/L 21.0-32.0 [facility] Chloride assayOrdered By: Morris on 09-03-2024 Chloride [Moles/Vol] 108 mmol/L 98-108 [facility] Erythrocyte distribution wid th ratioOrdered By: Dev Gutierrez on 09-03-2024 Erythrocyte distribution width (RBC) [Ratio] 13.6 % 11.6-14.6 [facility] Erythrocyte distribution wid th standard deviationOrdered By: Dev Gutierrez on 09-03-2024 Erythrocyte distribution width (RBC) [Ratio] 48.5 fl High 35.1-43.9 [facility] Glomerular filtration rate ( GFR) estimation/1.73 sq m using serum, plasma, or whole bOrdered By: Dev Gutierrez on 09-03-2024 GFR/1.73 sq M.predicted among non-blacks MDRD (S/P/Bld) [Vol rate/Area] 51 mL/min/{1.73_m2} Low >60 [facility] Comment on above: mL/min/1.73m2 CKD-EP I Creatinine Equation (2020) Hematocrit Auto (Bld) [Volum e fraction]Ordered By: Dev Gutierrez on 09-03-2024 Hematocrit (Bld) [Volume fraction] 29.9 % Low 37-47 [facility] Hemoglobin measurementOrdere d By: Dev Gutierrez on 09-03-2024 Hemoglobin (Bld) [Mass/Vol] 9.5 g/dL Low 12.0-15.0 [facility] Influenza virus A and B and SARS-CoV-2 (COVID-19) and Respiratory syncytial virus RNAOrdered By: Dev Gutierrez on 09-03-2024 SARS-CoV-2 (COVID-19) RNA MARLO+probe Ql (Unsp spec) [facility] M100.678on 09-03-2024 M100.678 Pending SARS-CoV-2 (COVID 19) Negative INFLUENZA A Negative INFLUENZA B Negative RSV PCR Negative Normal [facility] Comment on above: Performed By: #### L 100.0500, L500.2500 #### [facility] [address] [place], [place], [address] MCV (mean corpuscular volume ) determinationOrdered By: Dev Gutierrez on 09-03-2024 MCV (RBC) [Entitic vol] 97.7 fL 81-99 [facility] Mean corpuscular hemoglobin (MCH) determinationOrdered By: Dev Gutierrez on 09-03-2024 MCH (RBC) [Entitic mass] 31.0 pg 27.0-32.0 [facility] Mean corpuscular hemoglobin concentration (MCHC) determinationOrdered By: Dev Gutierrez on 09-03-2024 MCHC (RBC) [Mass/Vol] 31.8 g/dL Low 32-36 [facility] Mean platelet volume determi nationOrdered By: Dev Gutierrez on 09-03-2024 Platelet mean volume (Bld) [Entitic vol] 10.3 fL 6.2-12.0 [facility] Platelet countOrdered By: Morris on 09-03-2024 Platelets (Bld) [#/Vol] 145 10*3/uL Low 150-450 [facility] Potassium measurement (mass/ volume)Ordered By: Dev Gutierrez on 09-03-2024 Potassium (Unsp spec) [Mass/Vol] 4.3 mmol/L 3.3-5.1 [facility] RBC Auto (Bld) [#/Vol]Ordere d By: Dev Gutierrez on 09-03-2024 RBC (Bld) [#/Vol] 3.06 10*6/uL Low 4.2-5.4 [facility] Serum creatinine measurement (mass/volume)Ordered By: Dev Gutierrez on 09-03-2024 Creatinine [Mass/Vol] 1.08 mg/dL 0.70-1.20 [facility] Serum glucose measurement (m ass/volume)Ordered By: Dev Gutierrez on 09-03-2024 Glucose [Mass/Vol] 109 mg/dL High 70-99 [facility] Serum or plasma calcium maude urement (mass/volume)Ordered By: Dev Gutierrez on 09-03-2024 Calcium [Mass/Vol] 9.4 mg/dL 7.6-11.0 [facility] Serum or plasma urea nitroge n measurement (mass/volume)Ordered By: Dev Gutierrez on 09-03-2024 Urea nitrogen [Mass/Vol] 31 mg/dL High 4-19 [facility] Sodium levelOrdered By: Dev Gutierrez on 09-03-2024 Sodium [Moles/Vol] 142 mmol/L 133-145 [facility] White blood cell (WBC) count Ordered By: Dev Gutierrez on 09-03-2024 WBC (Bld) [#/Vol] 5.0 10*3/uL 4.4-11.0 [facility] Anion gap in Serum or Plasma Ordered By: Jack Rutledge on 08-13-2024 Anion gap [Moles/Vol] 11 mmol/L 5-15 [facility] BUN/creatinine ratioOrdered By: Jack Rutledge on 08-13-2024 Urea nitrogen/Creatinine [Mass ratio] 26.2 mg/mg High 10-20 [facility] Bilirubin, totalOrdered By: Jack Rutledge on 08-13-2024 Bilirubin [Mass/Vol] 1.12 mg/dL 0.00-1.30 [facility] CBC-Complete Blood Cnt No Di ffon 08-13-2024 Erythrocyte distribution width (RBC) [Ratio] 14.3 % Normal 11.6-14.6 [facility] Comment on above: Order Comment: Performed By: #### L 500.4050, L501.9520, L100.0500 #### [facility] [address] [place], [address] Hematocrit (Bld) [Volume fraction] 29.7 % Low 37-47 [facility] Comment on above: Order Comment: Performed By: #### L 500.4050, L501.9520, L100.0500 #### [facility] [address] [place], [address] Hemoglobin (Bld) [Mass/Vol] 9.9 g/dL Low 12.0-15.0 [facility] Comment on above: Order Comment: Performed By: #### L 500.4050, L501.9520, L100.0500 #### [facility] [address] [place], [address] MCH (RBC) [Entitic mass] 32.7 pg High 27.0-32.0 [facility] Comment on above: Order Comment: Performed By: #### L 500.4050, L501.9520, L100.0500 #### [facility] [address] [place], [address] MCHC (RBC) [Mass/Vol] 33.3 g/dL Normal 32-36 [facility] Comment on above: Order Comment: Performed By: #### L 500.4050, L501.9520, L100.0500 #### [facility] [address] [place], [address] MCV (RBC) [Entitic vol] 98.0 fL Normal 81-99 [facility] Comment on above: Order Comment: Performed By: #### L 500.4050, L501.9520, L100.0500 #### [facility] [address] [place], [address] Platelet mean volume (Bld) [Entitic vol] 10.0 fL Normal 6.2-12.0 [facility] Comment on above: Order Comment: Performed By: #### L 500.4050, L501.9520, L100.0500 #### [facility] [address] [place], [address] Platelets (Bld) [#/Vol] 149 10*3/uL Low 150-450 [facility] Comment on above: Order Comment: Performed By: #### L 500.4050, L501.9520, L100.0500 #### [facility] [address] [place], [address] RBC (Bld) [#/Vol] 3.03 10*6/uL Low 4.2-5.4 [facility] Comment on above: Order Comment: Performed By: #### L 500.4050, L501.9520, L100.0500 #### [facility] [address] [place], [address] RDW SD 50.4 fl High 35.1-43.9 [facility] Comment on above: Order Comment: - Performed By: #### L 500.4050, L501.9520, L100.0500 #### [facility] [address] [place], [address] WBC (Bld) [#/Vol] 4.7 10*3/uL Normal 4.4-11.0 [facility] Comment on above: Order Comment: Performed By: #### L 500.4050, L501.9520, L100.0500 #### [facility] [address] [place], [address] Carbon dioxide, total [Moles /volume] in Central venous bloodOrdered By: Jack Rutledge on 08-13-2024 CO2 [Moles/Vol] 22.4 mmol/L 21.0-32.0 [facility] Chloride assayOrdered By: Shauna Rutledge on 08-13-2024 Chloride [Moles/Vol] 107 mmol/L 98-108 [facility] Comprehensive Metabolic Prof ilon 08-13-2024 Albumin [Mass/Vol] 3.8 g/dL Normal 3.4-4.8 [facility] Comment on above: Order Comment: Performed By: #### L 500.4050, L501.9520, L100.0500 #### [facility] [address] [place], [address] Albumin/Globulin [Mass ratio] 1.6 {ratio} Normal 0.9-2.4 [facility] Comment on above: Order Comment: Performed By: #### L 500.4050, L501.9520, L100.0500 #### [facility] [address] [place], [address] ALK PHOS 79 U/L Normal 35-104 [facility] Comment on above: Order Comment: Performed By: #### L 500.4050, L501.9520, L100.0500 #### [facility] [address] [place], [address] ALT [Catalytic activity/Vol] 18 U/L Normal <=34 [facility] Comment on above: Order Comment: - Performed By: #### L 500.4050, L501.9520, L100.0500 #### [facility] [address] [place], [address] AST [Catalytic activity/Vol] 27 U/L Normal <=31 [facility] Comment on above: Order Comment: - Performed By: #### L 500.4050, L501.9520, L100.0500 #### [facility] [address] [place], [address] Bilirubin [Mass/Vol] 1.12 mg/dL Normal 0.00-1.30 [facility] Comment on above: Order Comment: Performed By: #### L 500.4050, L501.9520, L100.0500 #### [facility] [address] [place], [address] BUN/CRE 26.2 RATIO High 10-20 [facility] Comment on above: Order Comment: Performed By: #### L 500.4050, L501.9520, L100.0500 #### [facility] [address] [place], [address] Calcium [Mass/Vol] 9.3 mg/dL Normal 7.6-11.0 [facility] Comment on above: Order Comment: - Performed By: #### L 500.4050, L501.9520, L100.0500 #### [facility] [address] [place], [address] Chloride [Moles/Vol] 107 mmol/L Normal 98-108 [facility] Comment on above: Order Comment: - Performed By: #### L 500.4050, L501.9520, L100.0500 #### [facility] [address] [place], [address] CO2 [Moles/Vol] 22.4 mmol/L Normal 21.0-32.0 [facility] Comment on above: Order Comment: Performed By: #### L 500.4050, L501.9520, L100.0500 #### [facility] [address] [place], [address] Creatinine [Mass/Vol] 1.06 mg/dL Normal 0.70-1.20 [facility] Comment on above: Order Comment: Performed By: #### L 500.4050, L501.9520, L100.0500 #### [facility] [address] [place], [address] GAP 11 Normal 5-15 [facility] Comment on above: Order Comment: Performed By: #### L 500.4050, L501.9520, L100.0500 #### [facility] [address] [place], [address] GFR/1.73 sq M.predicted among non-blacks MDRD (S/P/Bld) [Vol rate/Area] 52 mL/min/{1.73_m2} Low >60 [facility] Comment on above: Order Comment: Result Comment: mL/m in/1.73m2 CKD-EPI Creatinine Equation (2020) Performed By: #### L 500.4050, L501.9520, L100.0500 #### [facility] [address] [place], [address] Globulin (S) [Mass/Vol] 2.3 g/dL Normal 2.2-4.2 [facility] Comment on above: Order Comment: Performed By: #### L 500.4050, L501.9520, L100.0500 #### [facility] [address] [place], [address] Glucose [Mass/Vol] 94 mg/dL Normal 70-99 [facility] Comment on above: Order Comment: - Performed By: #### L 500.4050, L501.9520, L100.0500 #### [facility] [address] [place], [address] Potassium [Moles/Vol] 4.1 mmol/L Normal 3.3-5.1 [facility] Comment on above: Order Comment: - Performed By: #### L 500.4050, L501.9520, L100.0500 #### [facility] [address] [place], [address] Sodium [Moles/Vol] 140 mmol/L Normal 133-145 [facility] Comment on above: Order Comment: - Performed By: #### L 500.4050, L501.9520, L100.0500 #### [facility] [address] [place], [address] T PROT 6.1 g/dL Normal 5.9-8.4 [facility] Comment on above: Order Comment: - Performed By: #### L 500.4050, L501.9520, L100.0500 #### [facility] [address] [place], [address] Urea nitrogen [Mass/Vol] 28 mg/dL High 4-19 [facility] Comment on above: Order Comment: - Performed By: #### L 500.4050, L501.9520, L100.0500 #### [facility] [address] [place], [address] Erythrocyte distribution wid th (RBC) [Ratio]Ordered By: Jack Rutledge on 08-13-2024 Erythrocyte distribution width (RBC) [Entitic vol] 50.4 fL High 35.1-43.9 [facility] Erythrocyte distribution wid th ratioOrdered By: Jack Rutledge on 08-13-2024 Erythrocyte distribution width (RBC) [Ratio] 14.3 % 11.6-14.6 [facility] Erythrocyte distribution wid th standard deviationOrdered By: Jack Rutledge on 08-13-2024 Erythrocyte distribution width (RBC) [Ratio] 50.4 fl High 35.1-43.9 [facility] GFR/1.73 sq M.predicted tyler g non-blacks MDRD (S/P/Bld) [Vol rate/Area]Ordered By: Jack Rutledge on 08-13-2024 Estimated GFR (MDRD) Non-Af Amer 52 Low >60 [facility] Comment on above: mL/min/1.73m2 CKD-EP I Creatinine Equation (2020) Glomerular filtration rate ( GFR) estimation/1.73 sq m using serum, plasma, or whole bOrdered By: Jack Rutledge on 08-13-2024 GFR/1.73 sq M.predicted among non-blacks MDRD (S/P/Bld) [Vol rate/Area] 52 mL/min/{1.73_m2} Low >60 [facility] Comment on above: mL/min/1.73m2 CKD-EP I Creatinine Equation (2020) Hematocrit Auto (Bld) [Volum e fraction]Ordered By: Jack Rutledge on 08-13-2024 Hematocrit (Bld) [Volume fraction] 29.7 % Low 37-47 [facility] Hemoglobin measurementOrdere d By: Jack Rultedge on 08-13-2024 Hemoglobin (Bld) [Mass/Vol] 9.9 g/dL Low 12.0-15.0 [facility] L503.0106on 08-13-2024 Cobalamin (Vitamin B12) [Mass/Vol] 744 pg/mL Normal 180-914 [facility] Comment on above: Order Comment: 209-1 Performed By: #### L 500.4050, L501.9520, L100.0500 #### [facility] [address] [place], [address] Laboratory - Chemistry and C hemistry - challengeOrdered By: Jack Rutledge on 08-13-2024 AST [Catalytic activity/Vol] 27 U/L <32 [facility] MCV (mean corpuscular volume ) determinationOrdered By: Jack Rutledge on 08-13-2024 MCV (RBC) [Entitic vol] 98.0 fL 81-99 [facility] Mean corpuscular hemoglobin (MCH) determinationOrdered By: Jack Rutledge on 08-13-2024 MCH (RBC) [Entitic mass] 32.7 pg High 27.0-32.0 [facility] Mean corpuscular hemoglobin concentration (MCHC) determinationOrdered By: Jack Rutledge on 08-13-2024 MCHC (RBC) [Mass/Vol] 33.3 g/dL 32-36 [facility] Mean platelet volume determi nationOrdered By: Jack Rutledge on 08-13-2024 Platelet mean volume (Bld) [Entitic vol] 10.0 fL 6.2-12.0 [facility] Platelet countOrdered By: Shauna Rutledge on 08-13-2024 Platelets (Bld) [#/Vol] 149 10*3/uL Low 150-450 [facility] Potassium (Unsp spec) [Mass/ Vol]Ordered By: Jack Rutledge on 08-13-2024 Potassium [Moles/Vol] 4.1 mmol/L 3.3-5.1 [facility] Potassium measurement (mass/ volume)Ordered By: Jack Rutledge on 08-13-2024 Potassium (Unsp spec) [Mass/Vol] 4.1 mmol/L 3.3-5.1 [facility] RBC Auto (Bld) [#/Vol]Ordere d By: Jack Rutledge on 08-13-2024 RBC (Bld) [#/Vol] 3.03 10*6/uL Low 4.2-5.4 [facility] Serum creatinine measurement (mass/volume)Ordered By: Jack Rutledge on 08-13-2024 Creatinine [Mass/Vol] 1.06 mg/dL 0.70-1.20 [facility] Serum globulin measurementOr dered By: Jack Rutledge on 08-13-2024 Globulin (S) [Mass/Vol] 2.3 g/dL 2.2-4.2 [facility] Serum glucose measurement (m ass/volume)Ordered By: Jack Rutledge on 08-13-2024 Glucose [Mass/Vol] 94 mg/dL 70-99 [facility] Serum or plasma alanine tovar otransferase (ALT) measurementOrdered By: Jack Rutledge on 08-13-2024 ALT [Catalytic activity/Vol] 18 U/L <35 [facility] Serum or plasma albumin maude urement (mass/volume)Ordered By: Jack Rutledge on 08-13-2024 Albumin [Mass/Vol] 3.8 g/dL 3.4-4.8 [facility] Serum or plasma albumin/glob ulin mass ratioOrdered By: Jack Rutledge on 08-13-2024 Albumin/Globulin [Mass ratio] 1.6 {ratio} 0.9-2.4 [facility] Serum or plasma alkaline nilton sphatase measurementOrdered By: Jack Rutledge on 08-13-2024 ALP [Catalytic activity/Vol] 79 U/L 35-104 [facility] Serum or plasma calcium maude urement (mass/volume)Ordered By: Jack Rutledge on 08-13-2024 Calcium [Mass/Vol] 9.3 mg/dL 7.6-11.0 [facility] Serum or plasma urea nitroge n measurement (mass/volume)Ordered By: Jack Rutledge on 08-13-2024 Urea nitrogen [Mass/Vol] 28 mg/dL High 4-19 [facility] Sodium levelOrdered By: Nando Rutledge on 08-13-2024 Sodium [Moles/Vol] 140 mmol/L 133-145 [facility] TSH DL <= 0.005 mIU/L QnOrde red By: Jack Rutledge on 08-13-2024 Thyroid Stimulating Hormone (TSH) 9.140 uIU/mL High 0.300-4.200 [facility] TSH Qn 9.140 uIU/mL High 0.300-4.200 [facility] Thyroid Stim Hormone (TSH)on 08-13-2024 TSH 9.140 uIU/mL High 0.300-4.200 [facility] Comment on above: Order Comment: 209-1 Performed By: #### L 500.9544, L501.8576, L100.0500 #### [facility] [address] [place], [id number] Total proteinOrdered By: Balwinder Rutledge on 08-13-2024 Protein [Mass/Vol] 6.1 g/dL 5.9-8.4 [facility] Vitamin B12 ser/plasOrdered By: Jack Rutledge on 08-13-2024 Cobalamin (Vitamin B12) [Mass/Vol] 744 pg/mL 180-914 [facility] White blood cell (WBC) count Ordered By: Jack Rutledge on 08-13-2024 WBC (Bld) [#/Vol] 4.7 10*3/uL 4.4-11.0 [facility] Vitamin B12 ser/plasOrdered By: Dev Gutierrez on 07-30-2024 Cobalamin (Vitamin B12) [Mass/Vol] 802 pg/mL Normal 180-914 [facility] Comment on above: Order Comment: 209-1 Performed By: #### L 500.4050, L501.9520, L100.0500 #### [facility] [address] [place], [address] Urine Cultureon 07-26-2024 [facility] Presumptive E. coli [place] Count >100,000 Presumptive E. coli: REACTION Ampicillin [...] TMP SMX Islt PARMINDER <=20 S Normal [facility] Comment on above: Performed By: #### L 100.0500 #### [facility] [address] [place], [address] Bilirubin Test strip Ql (U)O rdered By: Dev Gutierrez on 07-24-2024 Bilirubin Ql (U) Negative Negative [facility] Epithelial cells.squamous LM Ql (Urine sed)Ordered By: Dev Gutierrez on 07-24-2024 Epithelial cells.squamous LM.HPF (Urine sed) [#/Area] 0 /[HPF] 5-10 [facility] Glucose Ql (U)Ordered By: Morris on 07-24-2024 Urine Glucose (UA) Normal mg/dl Normal [facility] Ketones Test strip Ql (U)Ord ered By: Dev Gutierrez on 07-24-2024 Ketones Ql (U) Negative Negative [facility] Microscopic analysis of urin e for red blood cells (RBC)Ordered By: Dev Gutierrez on 07-24-2024 Microscopic analysis of urine for red blood cells (RBC) 0 SEEN /hpf 0-5 [facility] Urine RBC 0 SEEN /hpf 0-5 [facility] Mucus LM Ql (Urine sed)Order ed By: Dev Gutierrez on 07-24-2024 Mucus Ql (Urine sed) 0 SEEN /hpf [facility] Nitrite Test strip Ql (U)Ord ered By: Dev Gutierrez on 07-24-2024 Nitrite Ql (U) Positive High Negative [facility] Protein Test strip Ql (U)Ord ered By: Dve Gutierrez on 07-24-2024 Protein Ql (U) 30 mg/dl High Negative [facility] Squamous epithelial cells de tection in urine sediment by light microscopyOrdered By: Dev Gutierrez on 07-24-2024 Epithelial cells.squamous LM Ql (Urine sed) 0-5 SEEN /hpf -10 [facility] Urinalysis, Completeon 07-24 BACTERIA 4+ /hpf Normal None Seen [facility] Comment on above: Order Comment: Performed By: #### L 100.0500 #### [facility] [address] [place], [place], [id number] EPI,SQUAMOUS 0-5 SEEN Normal 5-10 [facility] Comment on above: Order Comment: Performed By: #### L 100.0500 #### [facility] [address] [place], [address] RBC 0 SEEN Normal 0-5 [facility] Comment on above: Order Comment: Performed By: #### L 100.0500 #### [facility] [address] [place] [place], [address] WBC 25-50 SEEN Normal 0-5 [facility] Comment on above: Order Comment: Performed By: #### L 100.0500 #### [facility] [address] [place] [place], [address] Mucus Ql (Urine sed) 0 SEEN Normal [facility] Comment on above: Order Comment: Performed By: #### L 100.0500 #### [facility] [address] [place], [place], [id number] Urine blood detectionOrdered By: Dev Gutierrez on 07-24-2024 Urine Occult Blood Negative Negative [facility] Urine clarityOrdered By: Danielle Gutierrez on 07-24-2024 Clarity (U) Clear Clear [facility] Urine color determinationOrd ered By: Dev Gutierrez on 07-24-2024 Color (U) Yellow Yellow [facility] Urine cultureOrdered By: Danielle Gutierrez on 07-24-2024 Bacteria identified Cx Nom (U) Presumptive E. coli Abnormal [facility] Urine glucose detectionOrder ed By: Dev Gutierrez on 07-24-2024 Glucose Ql (U) Normal mg/dl Normal [facility] Urine leukocyte esterase det ection by dipstickOrdered By: Dev Gutierrez on 07-24-2024 Leukocyte esterase Test strip Ql (U) 500 /ul High Negative [facility] Urine pHOrdered By: Dev rodriguez on 07-24-2024 pH (U) 6.0 [pH] 5.0 - 8.0 [facility] Urine sediment bacteria coun t by microscopy (number/high power field)Ordered By: Dev Gutierrez on 07-24-2024 Bacteria LM.HPF (Urine sed) [#/Area] 4 /[HPF] None Seen [facility] Urine specific gravity measu rementOrdered By: Dev Gutierrez on 07-24-2024 Specific gravity (U) [Rel density] 1.015 1.002-1.030 [facility] Urine urobilinogen measureme ntOrdered By: Dev Gutierrez on 07-24-2024 Urobilinogen Ql (U) Normal mg/dl Normal [facility] Urobilinogen Ql (U)Ordered B y: Dev Gutierrez on 07-24-2024 Urine Urobilinogen Normal mg/dl Normal [facility] White blood cell countOrdere d By: Dev Gutierrez on 07-24-2024 Urine WBC 25-50 SEEN /hpf 0-5 [facility] White blood cell count 25-50 SEEN /hpf 0-5 [facility] Urine Cultureon 07-14-2024 [facility] Presumptive E. coli [place] Count >100,000 Presumptive E. coli: REACTION Ampicillin [...] TMP SMX Islt PARMINDER <=20 S Normal [facility] Comment on above: Performed By: #### L 100.0500 #### [facility] [address] [place], [address] Urinalysis, Completeon 07-12 RBC 0 SEEN Normal 0-5 [facility] Comment on above: Order Comment: Performed By: #### L 100.0500 #### [facility] [address] [place], [place], [id number] BUN/creatinine ratioOrdered By: Dev Gutierrez on 07-11-2024 Urea nitrogen/Creatinine [Mass ratio] 23.3 mg/mg High 10-20 [facility] Bilirubin Test strip Ql (U)O rdered By: Dev Gutierrez on 07-11-2024 Bilirubin Ql (U) Negative Negative [facility] Bilirubin, totalOrdered By: Dev Gutierrez on 07-11-2024 Bilirubin [Mass/Vol] 0.65 mg/dL 0.00-1.30 [facility] CBC-Complete Blood Cnt No Di ffon 07-11-2024 Erythrocyte distribution width (RBC) [Ratio] 14.6 % Normal 11.6-14.6 [facility] Comment on above: Order Comment: - Performed By: #### L 100.0500 #### [facility] [address] [place], [address] Hematocrit (Bld) [Volume fraction] 29.6 % Low 37-47 [facility] Comment on above: Order Comment: Performed By: #### L 100.0500 #### [facility] [address] [place], [address] Hemoglobin (Bld) [Mass/Vol] 10.1 g/dL Low 12.0-15.0 [facility] Comment on above: Order Comment: Performed By: #### L 100.0500 #### [facility] [address] [place], [address] MCH (RBC) [Entitic mass] 32.7 pg High 27.0-32.0 [facility] Comment on above: Order Comment: Performed By: #### L 100.0500 #### [facility] [facility] [address] [place], [address] MCHC (RBC) [Mass/Vol] 34.1 g/dL Normal 32-36 [facility] Comment on above: Order Comment: Performed By: #### L 100.0500 #### [facility] [address] [place], [address] MCV (RBC) [Entitic vol] 95.8 fL Normal 81-99 [facility] Comment on above: Order Comment: - Performed By: #### L 100.0500 #### [facility] [address] [place], [address] Platelet mean volume (Bld) [Entitic vol] 9.6 fL Normal 6.2-12.0 [facility] Comment on above: Order Comment: Performed By: #### L 100.0500 #### [facility] [address] [place], [address] Platelets (Bld) [#/Vol] 176 10*3/uL Normal 150-450 [facility] Comment on above: Order Comment: Performed By: #### L 100.0500 #### [facility] [address] [place], [address] RBC (Bld) [#/Vol] 3.09 10*6/uL Low 4.2-5.4 [facility] Comment on above: Order Comment: Performed By: #### L 100.0500 #### [facility] [address] [place], [address] RDW SD 48.5 fl High 35.1-43.9 [facility] Comment on above: Order Comment: Performed By: #### L 100.0500 #### [facility] [address] [place], [address] WBC (Bld) [#/Vol] 7.2 10*3/uL Normal 4.4-11.0 [facility] Comment on above: Order Comment: Performed By: #### L 100.0500 #### [facility] [address] [place], [address] Carbon dioxide measurementOr dered By: Dev Gutierrez on 07-11-2024 CO2 [Moles/Vol] 21.1 mmol/L Low 22.0-29.0 [facility] Chloride measurementOrdered By: Dev Gutierrez on 02-26-2025 Chloride [Moles/Vol] 109 mmol/L High 96-108 [facility] Comprehensive Metabolic Prof ilon 07-11-2024 Albumin [Mass/Vol] 3.7 g/dL Normal 3.4-4.8 [facility] Comment on above: Order Comment: - Performed By: #### L 100.0500 #### [facility] [address] [place], [address] Albumin/Globulin [Mass ratio] 1.8 {ratio} Normal 0.9-2.4 [facility] Comment on above: Order Comment: - Performed By: #### L 100.0500 #### [facility] [address] [place], [address] ALK PHOS 82 U/L Normal 35-104 [facility] Comment on above: Order Comment: - Performed By: #### L 100.0500 #### [facility] [address] [place], [address] ALT [Catalytic activity/Vol] 13 U/L Normal <=34 [facility] Comment on above: Order Comment: - Performed By: #### L 100.0500 #### [facility] [address] [place], [address] Anion gap [Moles/Vol] 11 mmol/L Normal 5-15 [facility] Comment on above: Order Comment: - Performed By: #### L 100.0500 #### [facility] [address] [place], [address] AST [Catalytic activity/Vol] 21 U/L Normal <=31 [facility] Comment on above: Order Comment: - Performed By: #### L 100.0500 #### [facility] [address] [place], [address] Bilirubin [Mass/Vol] 0.65 mg/dL Normal 0.00-1.30 [facility] Comment on above: Order Comment: 209-1 Performed By: #### L 100.0500 #### [facility] [address] [place], [address] BUN/CRE 23.3 RATIO High 10-20 [facility] Comment on above: Order Comment: Performed By: #### L 100.0500 #### [facility] [address] [place], [address] Calcium [Mass/Vol] 8.9 mg/dL Normal 7.6-11.0 [facility] Comment on above: Order Comment: Performed By: #### L 100.0500 #### [facility] [address] [place], [address] Chloride [Moles/Vol] 109 mmol/L High 96-108 [facility] Comment on above: Order Comment: Performed By: #### L 100.0500 #### [facility] [address] [place], [address] CO2 [Moles/Vol] 21.1 mmol/L Low 22.0-29.0 [facility] Comment on above: Order Comment: Performed By: #### L 100.0500 #### [facility] [address] [place], [address] Creatinine [Mass/Vol] 0.9 mg/dL Normal 0.6-1.0 [facility] Comment on above: Order Comment: Performed By: #### L 100.0500 #### [facility] [address] [place], [address] GFR/1.73 sq M.predicted among non-blacks MDRD (S/P/Bld) [Vol rate/Area] 61 mL/min/{1.73_m2} Normal >60 [facility] Comment on above: Order Comment: Result Comment: mL/m in/1.73m2 CKD-EPI Creatinine Equation (2020) Performed By: #### L 100.0500 #### [facility] [address] [place], [address] Globulin (S) [Mass/Vol] 2.1 g/dL Low 2.2-4.2 [facility] Comment on above: Order Comment: Performed By: #### L 100.0500 #### [facility] [address] [place], [address] Glucose [Mass/Vol] 96 mg/dL Normal 70-99 [facility] Comment on above: Order Comment: Performed By: #### L 100.0500 #### [facility] [address] [place], [address] Potassium [Moles/Vol] 3.7 mmol/L Normal 3.3-5.1 [facility] Comment on above: Order Comment: Performed By: #### L 100.0500 #### [facility] [address] [place], [address] Sodium [Moles/Vol] 141 mmol/L Normal 133-145 [facility] Comment on above: Order Comment: Performed By: #### L 100.0500 #### [facility] [address] [place], [address] T PROT 5.7 g/dL Low 5.9-8.4 [facility] Comment on above: Order Comment: Performed By: #### L 100.0500 #### [facility] [address] [place], [address] Urea nitrogen [Mass/Vol] 22 mg/dL High 4-19 [facility] Comment on above: Order Comment: Performed By: #### L 100.0500 #### [facility] [address] [place], [address] Creatinine [Moles/Vol]Ordere d By: Dev Gutierrez on 07-11-2024 Creatinine [Mass/Vol] 0.9 mg/dL 0.6-1.0 [facility] Epithelial cells.squamous LM Ql (Urine sed)Ordered By: Dev Gutierrez on 07-11-2024 Epithelial cells.squamous LM.HPF (Urine sed) [#/Area] 0 /[HPF] 5-10 [facility] Erythrocyte distribution wid th (RBC) [Ratio]Ordered By: Dev Gutierrez on 07-11-2024 Erythrocyte distribution width (RBC) [Entitic vol] 48.5 fL High 35.1-43.9 [facility] Erythrocyte distribution wid th ratioOrdered By: Dev Gutierrez on 07-11-2024 Erythrocyte distribution width (RBC) [Ratio] 14.6 % 11.6-14.6 [facility] Erythrocyte distribution wid th standard deviationOrdered By: Dev Gutierrez on 07-11-2024 Erythrocyte distribution width (RBC) [Ratio] 48.5 fl High 35.1-43.9 [facility] GFR/1.73 sq M.predicted tyler g non-blacks MDRD (S/P/Bld) [Vol rate/Area]Ordered By: Dev Gutierrez on 07-11-2024 Estimated GFR (MDRD) Non-Af Amer 61 >60 [facility] Comment on above: mL/min/1.73m2 CKD-EP I Creatinine Equation (2020) Glomerular filtration rate ( GFR) estimation/1.73 sq m using serum, plasma, or whole bOrdered By: Dev Gutierrez on 07-11-2024 GFR/1.73 sq M.predicted among non-blacks MDRD (S/P/Bld) [Vol rate/Area] 61 mL/min/{1.73_m2} >60 [facility] Comment on above: mL/min/1.73m2 CKD-EP I Creatinine Equation (2020) Glucose Ql (U)Ordered By: Morris on 07-11-2024 Urine Glucose (UA) Normal mg/dl Normal [facility] Hematocrit Auto (Bld) [Volum e fraction]Ordered By: Dev Gutierrez on 07-11-2024 Hematocrit (Bld) [Volume fraction] 29.6 % Low 37-47 [facility] Hemoglobin measurementOrdere d By: Dev Gutierrez on 07-11-2024 Hemoglobin (Bld) [Mass/Vol] 10.1 g/dL Low 12.0-15.0 [facility] Ketones Test strip Ql (U)Ord ered By: Dev Gutierrez on 07-11-2024 Ketones Ql (U) Negative Negative [facility] - Chemistry and C hemistry - challengeOrdered By: Dev Gutierrez on 07-11-2024 AST [Catalytic activity/Vol] 21 U/L <32 [facility] MCV (mean corpuscular volume ) determinationOrdered By: Dev Gutierrez on 07-11-2024 MCV (RBC) [Entitic vol] 95.8 fL 81-99 [facility] Mean corpuscular hemoglobin (MCH) determinationOrdered By: Dev Gutierrez on 07-11-2024 MCH (RBC) [Entitic mass] 32.7 pg High 27.0-32.0 [facility] Mean corpuscular hemoglobin concentration (MCHC) determinationOrdered By: Dev Gutierrez on 07-11-2024 MCHC (RBC) [Mass/Vol] 34.1 g/dL 32-36 [facility] Mean platelet volume determi nationOrdered By: Dev Gutierrez on 07-11-2024 Platelet mean volume (Bld) [Entitic vol] 9.6 fL 6.2-12.0 [facility] Microscopic analysis of urin e for red blood cells (RBC)Ordered By: Dev Gutierrez on 07-11-2024 Microscopic analysis of urine for red blood cells (RBC) 0 SEEN /hpf 0-5 [facility] Urine RBC 0 SEEN /hpf 0-5 [facility] Mucus LM Ql (Urine sed)Order ed By: Dev Gutierrez on 07-11-2024 Mucus Ql (Urine sed) 0 SEEN /hpf [facility] Nitrite Test strip Ql (U)Ord ered By: Dev Gutierrez on 07-11-2024 Nitrite Ql (U) Positive High Negative [facility] Platelet countOrdered By: Morris on 07-11-2024 Platelets (Bld) [#/Vol] 176 10*3/uL 150-450 [facility] Protein Test strip Ql (U)Ord ered By: Dev Gutierrez on 07-11-2024 Protein Ql (U) 15 mg/dl High Negative [facility] RBC Auto (Bld) [#/Vol]Ordere d By: Dev Gutierrez on 07-11-2024 RBC (Bld) [#/Vol] 3.09 10*6/uL Low 4.2-5.4 [facility] Serum globulin measurementOr dered By: Dev Gutierrez on 07-11-2024 Globulin (S) [Mass/Vol] 2.1 g/dL Low 2.2-4.2 [facility] Serum glucose measurement (m ass/volume)Ordered By: Dev Gutierrez on 07-11-2024 Glucose [Mass/Vol] 96 mg/dL 70-99 [facility] Serum or plasma alanine tovar otransferase (ALT) measurementOrdered By: Dev Gutierrez on 07-11-2024 ALT [Catalytic activity/Vol] 13 U/L <35 [facility] Serum or plasma albumin maude urement (mass/volume)Ordered By: Dev Gutierrez on 07-11-2024 Albumin [Mass/Vol] 3.7 g/dL 3.4-4.8 [facility] Serum or plasma albumin/glob ulin mass ratioOrdered By: Dev Gutierrez on 07-11-2024 Albumin/Globulin [Mass ratio] 1.8 {ratio} 0.9-2.4 [facility] Serum or plasma alkaline nilton sphatase measurementOrdered By: Dev Gutierrez on 07-11-2024 ALP [Catalytic activity/Vol] 82 U/L 35-104 [facility] Serum or plasma anion gap de termination (moles/volume)Ordered By: Dev Gutierrez on 07-11-2024 Anion gap [Moles/Vol] 11 mmol/L 5-15 [facility] Serum or plasma calcium maude urement (mass/volume)Ordered By: Dev Gutierrez on 07-11-2024 Calcium [Mass/Vol] 8.9 mg/dL 7.6-11.0 [facility] Serum or plasma creatinine m easurement (moles/volume)Ordered By: Dev Gutierrez on 07-11-2024 Creatinine [Moles/Vol] 0.9 mg/dL 0.6-1.0 [facility] Serum or plasma potassium me asurementOrdered By: Dev Gutierrez on 07-11-2024 Potassium [Moles/Vol] 3.7 mmol/L 3.3-5.1 [facility] Serum or plasma sodium measu rement (moles/volume)Ordered By: Dev Gutierrez on 07-11-2024 Sodium [Moles/Vol] 141 mmol/L 133-145 [facility] Serum or plasma urea nitroge n measurement (mass/volume)Ordered By: Dev Gutierrez on 07-11-2024 Urea nitrogen [Mass/Vol] 22 mg/dL High 4-19 [facility] Squamous epithelial cells de tection in urine sediment by light microscopyOrdered By: Dev Gutierrez on 07-11-2024 Epithelial cells.squamous LM Ql (Urine sed) 0 SEEN /hpf 5-10 [facility] Total proteinOrdered By: Danielle Gutierrez on 07-11-2024 Protein [Mass/Vol] 5.7 g/dL Low 5.9-8.4 [facility] Urine blood detectionOrdered By: Dev Gutierrez on 07-11-2024 Urine Occult Blood Negative Negative [facility] Urine clarityOrdered By: Danielle Gutierrez on 07-11-2024 Clarity (U) Sl. Cloudy Clear [facility] Urine color determinationOrd ered By: Dev Gutierrez on 07-11-2024 Color (U) Yellow Yellow [facility] Urine cultureOrdered By: Danielle Gutierrez on 07-11-2024 Bacteria identified Cx Nom (U) Presumptive E. coli Abnormal [facility] Urine glucose detectionOrder ed By: Dev Gutierrez on 07-11-2024 Glucose Ql (U) Normal mg/dl Normal [facility] Urine leukocyte esterase det ection by dipstickOrdered By: Dev Gutierrez on 07-11-2024 Leukocyte esterase Test strip Ql (U) 100 /ul High Negative [facility] Urine pHOrdered By: Dev rodriguez on 07-11-2024 pH (U) 6.5 [pH] 5.0 - 8.0 [facility] Urine sediment bacteria coun t by microscopy (number/high power field)Ordered By: Dev Gutierrez on 07-11-2024 Bacteria LM.HPF (Urine sed) [#/Area] 1 /[HPF] None Seen [facility] Urine specific gravity measu rementOrdered By: Dev Gutierrez on 07-11-2024 Specific gravity (U) [Rel density] 1.010 1.002-1.030 [facility] Urine urobilinogen measureme ntOrdered By: Dev Gutierrez on 07-11-2024 Urobilinogen Ql (U) Normal mg/dl Normal [facility] Urobilinogen Ql (U)Ordered B y: Dev Gutierrez on 07-11-2024 Urine Urobilinogen Normal mg/dl Normal [facility] White blood cell (WBC) count Ordered By: Dev Gutierrez on 07-11-2024 WBC (Bld) [#/Vol] 7.2 10*3/uL 4.4-11.0 [facility] White blood cell countOrdere d By: Dev Gutierrez on 07-11-2024 Urine WBC 5-10 SEEN /hpf 0-5 [facility] White blood cell count 5-10 SEEN /hpf 0-5 [facility] Basic Metabolic Profile (BMP )on 07-06-2024 BUN/CRE 18.7 RATIO Normal 10-20 [facility] Comment on above: Order Comment: Performed By: #### L 500.4050, L501.9520, L100.0500 #### [facility] [address] [place], [address] CA,Total 9.3 mg/dL Normal 8.5-10.1 [facility] Comment on above: Order Comment: Performed By: #### L [id number], L501.9520, L100.0500 #### [facility] [address] [place], [address] EST GFR - AA 63 mL/min Normal >60 [facility] Comment on above: Order Comment: Result Comment: Afri can [place] GFR Calc Performed By: #### L 500.4050, L501.9520, L100.0500 #### [facility] [address] [place], [address] GAP 5 Normal 5-15 [facility] Comment on above: Order Comment: Performed By: #### L [id number], L501.9520, L100.0500 #### [facility] [address] [place], [address] Blood urea nitrogen (BUN)/cr eatinine ratioOrdered By: Dev Gutierrez on 07-06-2024 Urea nitrogen/Creatinine [Mass ratio] 18.7 mg/mg 10-20 [facility] Carbon dioxide measurementOr dered By: Dev Gutierrez on 07-06-2024 CO2 [Moles/Vol] 23.0 mmol/L Normal 21.0-32.0 [facility] Comment on above: Order Comment: Performed By: #### L 500.4050, L501.9520, L100.0500 #### [facility] [address] [place], [address] Chloride measurementOrdered By: Dev Gutierrez on 07-06-2024 Chloride [Moles/Vol] 114 mmol/L High 98-107 [facility] Comment on above: Order Comment: Performed By: #### L [id number], L501.9520, L100.0500 #### [facility] [address] [place], [address] Estimated glomerular filtrat ion rate (GFR) AmericanOrdered By: Dev Gutierrez on 07-06-2024 Estimated GFR (MDRD) Amer 63 mL/min >60 [facility] Comment on above: GFR Calc Glomerular filtration rate ( GFR) estimationOrdered By: Dev Gutierrez on 07-06-2024 Estimated GFR (MDRD) Non-Af Amer 52 mL/min Low >60 [facility] Comment on above: Non- GFR Calc GFR/1.73 sq M.predicted among non-blacks MDRD (S/P/Bld) [Vol rate/Area] 52 mL/min/{1.73_m2} Low >60 [facility] Comment on above: Non- GFR Calc Order Comment: Result Comment: Non- GFR Calc Performed By: #### L 500.4050, L501.9520, L100.0500 #### [facility] [address] [place], [address] Glucose measurementOrdered B y: Dev Gutierrez on 07-06-2024 Glucose [Mass/Vol] 112 mg/dL High 74-106 [facility] Comment on above: Fasting Glucose resu lt from 100 to 125 mg/dL suggests IMPAIRED HOMEOSTASIS per A.D.A. criteria. Order Comment: Result Comment: Fast ing Glucose result from 100 to 125 mg/dL suggests IMPAIRED HOMEOSTASIS per A.D.A. criteria. Performed By: #### L 500.4050, L501.9520, L100.0500 #### [facility] [address] [place], [address] Potassium measurementOrdered By: Dev Gutierrez on 07-06-2024 Potassium [Moles/Vol] 3.8 mmol/L Normal 3.5-5.1 [facility] Comment on above: Order Comment: Performed By: #### L [id number], L501.9520, L100.0500 #### [facility] [address] [place], [address] Serum anion gap measurementO rdered By: Dev Gutierrez on 07-06-2024 Anion gap [Moles/Vol] 5 mmol/L 5-15 [facility] Serum or plasma calcium maude urement (mass/volume)Ordered By: Dev Gutierrez on 07-06-2024 Calcium [Mass/Vol] 9.3 mg/dL 8.5-10.1 [facility] Serum or plasma creatinine m easurement (mass/volume)Ordered By: Dev Gutierrez on 07-06-2024 Creatinine [Mass/Vol] 1.07 mg/dL High 0.55-1.02 [facility] Comment on above: The validity of the calculated GFR & GFRAA in patients over 70 years has not been determined. Clinical correlation is essential. Order Comment: Result Comment: The validity of the calculated GFR GFRAA in patients over 70 years has not been determined. Clinical correlation is essential. Performed By: #### L 500.4050, L501.9520, L100.0500 #### [facility] [address] [place], [address] Serum or plasma urea nitroge n measurement (mass/volume)Ordered By: Dev Gutierrez on 07-06-2024 Urea nitrogen [Mass/Vol] 20 mg/dL High 7-18 [facility] Comment on above: Order Comment: Performed By: #### L [id number], L501.9520, L100.0500 #### [facility] [address] [place], [address] Sodium levelOrdered By: Dev Gutierrez on 07-06-2024 Sodium [Moles/Vol] 142 mmol/L Normal 136-145 [facility] Comment on above: Order Comment: Performed By: #### L [id number], L501.9520, L100.0500 #### [facility] [address] [place], [address] Albumin to globulin ratioOrd ered By: Dev Gutierrez on 07-02-2024 Albumin/Globulin [Mass ratio] 1.0 {ratio} 0.9-2.4 [facility] Bilirubin, totalOrdered By: Dev Gutierrez on 07-02-2024 Bilirubin [Mass/Vol] 1.20 mg/dL High 0.20-1.00 [facility] Comment on above: For patients on eltr ombopag therapy, use of Dimension Mckenzie TBIL is not recommended. Blood urea nitrogen (BUN)/cr eatinine ratioOrdered By: Dev Gutierrez on 07-02-2024 Urea nitrogen/Creatinine [Mass ratio] 21.5 mg/mg High 10-20 [facility] CBC-Complete Blood Cnt No Di ffon 07-02-2024 Erythrocyte distribution width (RBC) [Ratio] 14.4 % Normal 11.6-14.6 [facility] Comment on above: Order Comment: - Performed By: #### L 100.0500 #### [facility] [address] [place], [address] Hematocrit (Bld) [Volume fraction] 31.5 % Low 37-47 [facility] Comment on above: Order Comment: - Performed By: #### L 100.0500 #### [facility] [address] [place], [address] Hemoglobin (Bld) [Mass/Vol] 9.9 g/dL Low 12.0-15.0 [facility] Comment on above: Order Comment: - Performed By: #### L 100.0500 #### [facility] [address] [place], [address] MCH (RBC) [Entitic mass] 30.2 pg Normal 27.0-32.0 [facility] Comment on above: Order Comment: - Performed By: #### L 100.0500 #### [facility] [address] [place], [address] MCHC (RBC) [Mass/Vol] 31.4 g/dL Low 32-36 [facility] Comment on above: Order Comment: - Performed By: #### L 100.0500 #### [facility] [address] [place], [address] MCV (RBC) [Entitic vol] 96.0 fL Normal 81-99 [facility] Comment on above: Order Comment: - Performed By: #### L 100.0500 #### [facility] [address] [place], [address] Platelet mean volume (Bld) [Entitic vol] 10.2 fL Normal 6.2-12.0 [facility] Comment on above: Order Comment: Performed By: #### L 100.0500 #### [facility] [address] [place], [address] Platelets (Bld) [#/Vol] 143 10*3/uL Low 150-450 [facility] Comment on above: Order Comment: Performed By: #### L 100.0500 #### [facility] [address] [place], [address] RBC (Bld) [#/Vol] 3.28 10*6/uL Low 4.2-5.4 [facility] Comment on above: Order Comment: Performed By: #### L 100.0500 #### [facility] [address] [place], [address] RDW SD 50.4 fl High 35.1-43.9 [facility] Comment on above: Order Comment: Performed By: #### L 100.0500 #### [facility] [address] [place], [address] WBC (Bld) [#/Vol] 4.8 10*3/uL Normal 4.4-11.0 [facility] Comment on above: Order Comment: Performed By: #### L 100.0500 #### [facility] [address] [place], [address] Carbon dioxide measurementOr dered By: Dev Gutierrez on 07-02-2024 CO2 [Moles/Vol] 19.0 mmol/L Low 21.0-32.0 [facility] Chloride measurementOrdered By: Dev Gutierrez on 07-02-2024 Chloride [Moles/Vol] 110 mmol/L High 98-107 [facility] Comprehensive Metabolic Prof ilon 07-02-2024 Albumin [Mass/Vol] 3.1 g/dL Low 3.2-5.0 [facility] Comment on above: Order Comment: Performed By: #### L 100.0500 #### [facility] [address] [place], [address] Albumin/Globulin [Mass ratio] 1.0 {ratio} Normal 0.9-2.4 [facility] Comment on above: Order Comment: Performed By: #### L 100.0500 #### [facility] [address] [place], [address] ALK P 68 U/L Normal 45-117 [facility] Comment on above: Order Comment: Performed By: #### L 100.0500 #### [facility] [address] [place], [address] ALT [Catalytic activity/Vol] 20 U/L Normal 13-56 [facility] Comment on above: Order Comment: Performed By: #### L 100.0500 #### [facility] [address] [place], [address] AST [Catalytic activity/Vol] 22 U/L Normal 15-37 [facility] Comment on above: Order Comment: Performed By: #### L 100.0500 #### [facility] [address] [place], [address] Bilirubin [Mass/Vol] 1.20 mg/dL High 0.20-1.00 [facility] Comment on above: Order Comment: Result Comment: For patients on eltrombopag therapy, use of Dimension Mckenzie TBIL is not recommended. Performed By: #### L 100.0500 #### [facility] [address] [place], [address] BUN/CRE 21.5 RATIO High 10-20 [facility] Comment on above: Order Comment: Performed By: #### L 100.0500 #### [facility] [address] [place], [address] CA,Total 8.6 mg/dL Normal 8.5-10.1 [facility] Comment on above: Order Comment: Performed By: #### L 100.0500 #### [facility] [address] [place], [address] Chloride [Moles/Vol] 110 mmol/L High 98-107 [facility] Comment on above: Order Comment: Performed By: #### L 100.0500 #### [facility] [address] [place], [address] CO2 [Moles/Vol] 19.0 mmol/L Low 21.0-32.0 [facility] Comment on above: Order Comment: Performed By: #### L 100.0500 #### [facility] [address] [place], [address] Creatinine [Mass/Vol] 1.44 mg/dL High 0.55-1.02 [facility] Comment on above: Order Comment: Result Comment: The validity of the calculated GFR GFRAA in patients over 70 years has not been determined. Clinical correlation is essential. Performed By: #### L 100.0500 #### [facility] [address] [place], [address] EST GFR - AA 45 mL/min Low >60 [facility] Comment on above: Order Comment: Result Comment: Afri can [place] GFR Calc Performed By: #### L 100.0500 #### [facility] [address] [place], [address] GAP 11 Normal 5-15 [facility] Comment on above: Order Comment: Performed By: #### L 100.0500 #### [facility] [address] [place], [address] GFR/1.73 sq M.predicted among non-blacks MDRD (S/P/Bld) [Vol rate/Area] 37 mL/min/{1.73_m2} Low >60 [facility] Comment on above: Order Comment: Result Comment: Non- GFR Calc Performed By: #### L 100.0500 #### [facility] [address] [place], [address] Globulin (S) [Mass/Vol] 3.2 g/dL Normal 2.2-4.2 [facility] Comment on above: Order Comment: Performed By: #### L 100.0500 #### [facility] [address] [place], [address] Glucose [Mass/Vol] 95 mg/dL Normal 74-106 [facility] Comment on above: Order Comment: Performed By: #### L 100.0500 #### [facility] [address] [place], [address] Potassium [Moles/Vol] 3.3 mmol/L Low 3.5-5.1 [facility] Comment on above: Order Comment: Performed By: #### L 100.0500 #### [facility] [address] [place], [address] Sodium [Moles/Vol] 139 mmol/L Normal 136-145 [facility] Comment on above: Order Comment: Performed By: #### L 100.0500 #### [facility] [address] [place], [address] T PROT 6.3 g/dL Low 6.4-8.2 [facility] Comment on above: Order Comment: Performed By: #### L 100.0500 #### [facility] [address] [place], [address] Urea nitrogen [Mass/Vol] 31 mg/dL High 7-18 [facility] Comment on above: Order Comment: Performed By: #### L 100.0500 #### [facility] [address] [place], [address] Erythrocyte distribution wid th (RBC) [Ratio]Ordered By: Dev Gutierrez on 07-02-2024 Erythrocyte distribution width (RBC) [Entitic vol] 50.4 fL High 35.1-43.9 [facility] Erythrocyte distribution wid th ratioOrdered By: Dev Gutierrez on 07-02-2024 Erythrocyte distribution width (RBC) [Ratio] 14.4 % 11.6-14.6 [facility] Erythrocyte distribution wid th standard deviationOrdered By: Dev Gutierrez on 07-02-2024 Erythrocyte distribution width (RBC) [Ratio] 50.4 fl High 35.1-43.9 [facility] Estimated glomerular filtrat ion rate (GFR) AmericanOrdered By: Dev Gutierrez on 07-02-2024 Estimated GFR (MDRD) Amer 45 mL/min Low >60 [facility] Comment on above: GFR Calc Glomerular filtration rate ( GFR) estimationOrdered By: Dev Gutierrez on 07-02-2024 Estimated GFR (MDRD) Non-Af Amer 37 mL/min Low >60 [facility] Comment on above: Non- GFR Calc GFR/1.73 sq M.predicted among non-blacks MDRD (S/P/Bld) [Vol rate/Area] 37 mL/min/{1.73_m2} Low >60 [facility] Comment on above: Non- GFR Calc Glucose measurementOrdered B y: Dev Gutierrez on 07-02-2024 Glucose [Mass/Vol] 95 mg/dL 74-106 [facility] Hematocrit Auto (Bld) [Volum e fraction]Ordered By: Dev Gutierrez on 07-02-2024 Hematocrit (Bld) [Volume fraction] 31.5 % Low 37-47 [facility] Hemoglobin measurementOrdere d By: Dev Gutierrez on 07-02-2024 Hemoglobin (Bld) [Mass/Vol] 9.9 g/dL Low 12.0-15.0 [facility] - Chemistry and C hemistry - challengeOrdered By: Dev Gutierrez on 07-02-2024 AST [Catalytic activity/Vol] 22 U/L 15-37 [facility] MCV (mean corpuscular volume ) determinationOrdered By: Dev Gutierrez on 07-02-2024 MCV (RBC) [Entitic vol] 96.0 fL 81-99 [facility] Mean corpuscular hemoglobin (MCH) determinationOrdered By: Dev Gutierrez on 07-02-2024 MCH (RBC) [Entitic mass] 30.2 pg 27.0-32.0 [facility] Mean corpuscular hemoglobin concentration (MCHC) determinationOrdered By: Dev Gutierrez on 07-02-2024 MCHC (RBC) [Mass/Vol] 31.4 g/dL Low 32-36 [facility] Mean platelet volume determi nationOrdered By: Dev Gutierrez on 07-02-2024 Platelet mean volume (Bld) [Entitic vol] 10.2 fL 6.2-12.0 [facility] Platelet countOrdered By: Morris on 07-02-2024 Platelets (Bld) [#/Vol] 143 10*3/uL Low 150-450 [facility] Potassium measurementOrdered By: Dev Gutierrez on 07-02-2024 Potassium [Moles/Vol] 3.3 mmol/L Low 3.5-5.1 [facility] RBC Auto (Bld) [#/Vol]Ordere d By: Dev Gutierrez on 07-02-2024 RBC (Bld) [#/Vol] 3.28 10*6/uL Low 4.2-5.4 [facility] Serum anion gap measurementO rdered By: Dev Gutierrez on 07-02-2024 Anion gap [Moles/Vol] 11 mmol/L 5-15 [facility] Serum globulin measurementOr dered By: Dev Gutierrez on 07-02-2024 Globulin (S) [Mass/Vol] 3.2 g/dL 2.2-4.2 [facility] Serum or plasma alanine tovar otransferase (ALT) measurementOrdered By: Dev Gutierrez on 07-02-2024 ALT [Catalytic activity/Vol] 20 U/L 13-56 [facility] Serum or plasma albumin maude urement (mass/volume)Ordered By: Dev Gutierrez on 07-02-2024 Albumin [Mass/Vol] 3.1 g/dL Low 3.2-5.0 [facility] Serum or plasma alkaline nilton sphatase measurementOrdered By: Dev Gutierrez on 07-02-2024 ALP [Catalytic activity/Vol] 68 U/L 45-117 [facility] Serum or plasma calcium maude urement (mass/volume)Ordered By: Dev Gutierrez on 07-02-2024 Calcium [Mass/Vol] 8.6 mg/dL 8.5-10.1 [facility] Serum or plasma creatinine m easurement (mass/volume)Ordered By: Dev Gutierrez on 07-02-2024 Creatinine [Mass/Vol] 1.44 mg/dL High 0.55-1.02 [facility] Comment on above: The validity of the calculated GFR & GFRAA in patients over 70 years has not been determined. Clinical correlation is essential. Serum or plasma thyroid stim ulating hormone (TSH) measurement (units/volume)Ordered By: Dev Gutierrez on 07-02-2024 TSH Qn 5.820 uIU/mL High 0.358-3.740 [facility] Serum or plasma urea nitroge n measurement (mass/volume)Ordered By: Dev Gutierrez on 07-02-2024 Urea nitrogen [Mass/Vol] 31 mg/dL High 7-18 [facility] Sodium levelOrdered By: Dev Gutierrez on 07-02-2024 Sodium [Moles/Vol] 139 mmol/L 136-145 [facility] TSH QnOrdered By: Dev washington on 07-02-2024 Thyroid Stimulating Hormone (TSH) 5.820 uIU/mL High 0.358-3.740 [facility] Thyroid Stim Hormone (TSH)on 07-02-2024 TSH 5.820 uIU/mL High 0.358-3.740 [facility] Comment on above: Order Comment: Performed By: #### L 100.0500 #### [facility] [address] [place] [place], [address] Total proteinOrdered By: Danielle Gutierrez on 07-02-2024 Protein [Mass/Vol] 6.3 g/dL Low 6.4-8.2 [facility] Vitamin B12on 07-02-2024 Cobalamin (Vitamin B12) [Mass/Vol] 1871 pg/mL High 211-911 [facility] Comment on above: Order Comment: Performed By: #### L 100.0500 #### [facility] [address] [place], [address] Vitamin B12 measurementOrder ed By: Dev Gutierrez on 07-02-2024 Cobalamin (Vitamin B12) [Mass/Vol] 1871 pg/mL High 211-911 [facility] White blood cell (WBC) count Ordered By: Dev Gutierrez on 07-02-2024 WBC (Bld) [#/Vol] 4.8 10*3/uL 4.4-11.0 [facility] Albumin to globulin ratioOrd ered By: Dev Gutierrez on 05-21-2024 Albumin/Globulin [Mass ratio] 1.1 {ratio} Normal 0.9-2.4 [facility] Comment on above: Order Comment: Performed By: #### L 500.4050, L501.9520, L100.0500 #### [facility] [address] [place], [address] Automated blood erythrocyte countOrdered By: Dev Gutierrez on 05-21-2024 RBC (Bld) [#/Vol] 3.11 10*6/uL Low 4.2-5.4 [facility] Comment on above: Order Comment: Performed By: #### L 500.4050, L501.9520, L100.0500 #### [facility] [address] [place], [address] Automated blood hematocrit ( percentage)Ordered By: Dev Gutierrez on 05-21-2024 Hematocrit (Bld) [Volume fraction] 30.1 % Low 37-47 [facility] Comment on above: Order Comment: Performed By: #### L 500.4050, L501.9520, L100.0500 #### [facility] [address] [place], [address] Bilirubin, totalOrdered By: Dev Gutierrez on 05-21-2024 Bilirubin [Mass/Vol] 1.00 mg/dL Normal 0.20-1.00 [facility] Comment on above: For patients on eltr ombopag therapy, use of Dimension Mckenzie TBIL is not recommended. Order Comment: Result Comment: For patients on eltrombopag therapy, use of Dimension Mckenzie TBIL is not recommended. Performed By: #### L 500.4050, L501.9520, L100.0500 #### [facility] [address] [place], [address] Blood urea nitrogen (BUN)/cr eatinine ratioOrdered By: Dev Gutierrez on 05-21-2024 Urea nitrogen/Creatinine [Mass ratio] 27.1 mg/mg High 10-20 [facility] CBC-Complete Blood Cnt No Di ffon 05-21-2024 RDW SD 48.4 fl High 35.1-43.9 [facility] Comment on above: Order Comment: Performed By: #### L 500.4050, L501.9520, L100.0500 #### [facility] [address] [place], [address] Carbon dioxide measurementOr dered By: Dev Gutierrez on 05-21-2024 CO2 [Moles/Vol] 25.0 mmol/L Normal 21.0-32.0 [facility] Comment on above: Order Comment: Performed By: #### L 500.4050, L501.9520, L100.0500 #### [facility] [address] [place], [address] Chloride measurementOrdered By: Dev Gutierrez on 05-21-2024 Chloride [Moles/Vol] 112 mmol/L High 98-107 [facility] Comment on above: Order Comment: - Performed By: #### L 500.4050, L501.9520, L100.0500 #### [facility] [address] [place], [address] Comprehensive Metabolic Prof ilon 05-21-2024 ALK P 105 U/L Normal 45-117 [facility] Comment on above: Order Comment: - Performed By: #### L 500.4050, L501.9520, L100.0500 #### [facility] [address] [place], [address] BUN/CRE 27.1 RATIO High 10-20 [facility] Comment on above: Order Comment: Performed By: #### L 500.4050, L501.9520, L100.0500 #### [facility] [address] [place], [address] CA,Total 9.0 mg/dL Normal 8.5-10.1 [facility] Comment on above: Order Comment: Performed By: #### L 500.4050, L501.9520, L100.0500 #### [facility] [address] [place], [address] EST GFR - AA 63 mL/min Normal >60 [facility] Comment on above: Order Comment: Result Comment: Afri can [place] GFR Calc Performed By: #### L 500.4050, L501.9520, L100.0500 #### [facility] [address] [place], [address] GAP 6 Normal 5-15 [facility] Comment on above: Order Comment: Performed By: #### L 500.4050, L501.9520, L100.0500 #### [facility] [address] [place], [address] GFR/1.73 sq M.predicted among non-blacks MDRD (S/P/Bld) [Vol rate/Area] 52 mL/min/{1.73_m2} Low >60 [facility] Comment on above: Order Comment: Result Comment: Non- GFR Calc Performed By: #### L 500.4050, L501.9520, L100.0500 #### [facility] [address] [place], [address] T PROT 6.0 g/dL Low 6.4-8.2 [facility] Comment on above: Order Comment: Performed By: #### L 500.4050, L501.9520, L100.0500 #### [facility] [address] [place], [address] Comprehensive Metabolic Prof ilOrdered By: Dev Gutierrez on 05-21-2024 AST [Catalytic activity/Vol] 16 U/L Normal 15-37 [facility] Comment on above: Order Comment: Performed By: #### L 500.4050, L501.9520, L100.0500 #### [facility] [address] [place], [address] Erythrocyte distribution wid th (RBC) [Ratio]Ordered By: Dev Gutierrez on 05-21-2024 Erythrocyte distribution width (RBC) [Entitic vol] 48.4 fL High 35.1-43.9 [facility] Erythrocyte distribution wid th ratioOrdered By: Dev Gutierrez on 05-21-2024 Erythrocyte distribution width (RBC) [Ratio] 13.7 % Normal 11.6-14.6 [facility] Comment on above: Order Comment: Performed By: #### L 500.4050, L501.9520, L100.0500 #### [facility] [address] [place], [address] Estimated glomerular filtrat ion rate (GFR) AmericanOrdered By: Dev Gutierrez on 05-21-2024 Estimated GFR (MDRD) Amer 63 mL/min >60 [facility] Comment on above: GFR Calc Glomerular filtration rate ( GFR) estimationOrdered By: Dev Gutierrez on 05-21-2024 Estimated GFR (MDRD) Non-Af Amer 52 mL/min Low >60 [facility] Comment on above: Non- GFR Calc Glucose measurementOrdered B y: Dev Gutierrez on 05-21-2024 Glucose [Mass/Vol] 105 mg/dL Normal 74-106 [facility] Comment on above: Fasting Glucose resu lt from 100 to 125 mg/dL suggests IMPAIRED HOMEOSTASIS per A.D.A. criteria. Order Comment: Result Comment: Fast ing Glucose result from 100 to 125 mg/dL suggests IMPAIRED HOMEOSTASIS per A.D.A. criteria. Performed By: #### L 500.4050, L501.9520, L100.0500 #### [facility] [address] [place], [address] Hemoglobin measurementOrdere d By: Dev Gutierrez on 05-21-2024 Hemoglobin (Bld) [Mass/Vol] 9.7 g/dL Low 12.0-15.0 [facility] Comment on above: Order Comment: Performed By: #### L 500.4050, L501.9520, L100.0500 #### [facility] [address] [place], [address] MCV (mean corpuscular volume ) determinationOrdered By: Dev Gutierrez on 05-21-2024 MCV (RBC) [Entitic vol] 96.8 fL Normal 81-99 [facility] Comment on above: Order Comment: Performed By: #### L 500.4050, L501.9520, L100.0500 #### [facility] [address] [place], [address] Mean corpuscular hemoglobin (MCH) determinationOrdered By: Dev Gutierrez on 05-21-2024 MCH (RBC) [Entitic mass] 31.2 pg Normal 27.0-32.0 [facility] Comment on above: Order Comment: Performed By: #### L 500.4050, L501.9520, L100.0500 #### [facility] [address] [place], [address] Mean corpuscular hemoglobin concentration (MCHC) determinationOrdered By: Dev Gutierrez on 05-21-2024 MCHC (RBC) [Mass/Vol] 32.2 g/dL Normal 32-36 [facility] Comment on above: Order Comment: Performed By: #### L 500.4050, L501.9520, L100.0500 #### [facility] [address] [place], [address] Mean platelet volume determi nationOrdered By: Dev Gutierrez on 05-21-2024 Platelet mean volume (Bld) [Entitic vol] 10.2 fL Normal 6.2-12.0 [facility] Comment on above: Order Comment: Performed By: #### L 500.4050, L501.9520, L100.0500 #### [facility] [address] [place], [address] Platelet countOrdered By: Morris on 05-21-2024 Platelets (Bld) [#/Vol] 139 10*3/uL Low 150-450 [facility] Comment on above: Order Comment: Performed By: #### L 500.4050, L501.9520, L100.0500 #### [facility] [address] [place], [address] Potassium measurementOrdered By: Dev Gutierrez on 05-21-2024 Potassium [Moles/Vol] 4.0 mmol/L Normal 3.5-5.1 [facility] Comment on above: Order Comment: Performed By: #### L 500.4050, L501.9520, L100.0500 #### [facility] [address] [place], [address] Serum anion gap measurementO rdered By: Dev Gutierrez on 05-21-2024 Anion gap [Moles/Vol] 6 mmol/L 5-15 [facility] Serum globulin measurementOr dered By: Dev Gutierrez on 05-21-2024 Globulin (S) [Mass/Vol] 2.9 g/dL Normal 2.2-4.2 [facility] Comment on above: Order Comment: Performed By: #### L 500.4050, L501.9520, L100.0500 #### [facility] [address] [place], [address] Serum or plasma alanine tovar otransferase (ALT) measurementOrdered By: Dev Gutierrez on 05-21-2024 ALT [Catalytic activity/Vol] 15 U/L Normal 13-56 [facility] Comment on above: Order Comment: Performed By: #### L 500.4050, L501.9520, L100.0500 #### [facility] [address] [place], [address] Serum or plasma albumin maude urement (mass/volume)Ordered By: Dev Gutierrez on 05-21-2024 Albumin [Mass/Vol] 3.1 g/dL Low 3.2-5.0 [facility] Comment on above: Order Comment: Performed By: #### L 500.4050, L501.9520, L100.0500 #### [facility] [address] [place], [address] Serum or plasma alkaline nilton sphatase measurementOrdered By: Dev Gutierrez on 05-21-2024 ALP [Catalytic activity/Vol] 105 U/L 45-117 [facility] Serum or plasma calcium maude urement (mass/volume)Ordered By: Dev Gutierrez on 05-21-2024 Calcium [Mass/Vol] 9.0 mg/dL 8.5-10.1 [facility] Serum or plasma creatinine m easurement (mass/volume)Ordered By: Dev Gutierrez on 05-21-2024 Creatinine [Mass/Vol] 1.07 mg/dL High 0.55-1.02 [facility] Comment on above: The validity of the calculated GFR & GFRAA in patients over 70 years has not been determined. Clinical correlation is essential. Order Comment: Result Comment: The validity of the calculated GFR GFRAA in patients over 70 years has not been determined. Clinical correlation is essential. Performed By: #### L 500.4050, L501.9520, L100.0500 #### [facility] [address] [place], [address] Serum or plasma urea nitroge n measurement (mass/volume)Ordered By: Dev Gutierrez on 05-21-2024 Urea nitrogen [Mass/Vol] 29 mg/dL High 7-18 [facility] Comment on above: Order Comment: Performed By: #### L 500.4050, L501.9520, L100.0500 #### [facility] [address] [place], [address] Sodium levelOrdered By: Dev Gutierrez on 05-21-2024 Sodium [Moles/Vol] 142 mmol/L Normal 136-145 [facility] Comment on above: Order Comment: Performed By: #### L 500.4050, L501.9520, L100.0500 #### [facility] [address] [place], [address] TSH QnOrdered By: Dev washington on 05-21-2024 Thyroid Stimulating Hormone (TSH) 0.034 uIU/mL Low 0.358-3.740 [facility] Thyroid Stim Hormone (TSH)on 05-21-2024 TSH 0.034 uIU/mL Low 0.358-3.740 [facility] Comment on above: Order Comment: - Performed By: #### L 500.4050, L501.9520, L100.0500 #### [facility] [address] [place], [address] Total proteinOrdered By: Danielle Gutierrez on 05-21-2024 Protein [Mass/Vol] 6.0 g/dL Low 6.4-8.2 [facility] White blood cell (WBC) count Ordered By: Dev Gutierrez on 05-21-2024 WBC (Bld) [#/Vol] 5.2 10*3/uL Normal 4.4-11.0 [facility] Comment on above: Order Comment: - Performed By: #### L 500.4050, L501.9520, L100.0500 #### [facility] [address] [place], [address] Urinalysis, Completeon 05-18 EPI,SQUAMOUS 0-5 SEEN Normal 5-10 [facility] Comment on above: Order Comment: - Performed By: #### L 100.0500, L500.2500 #### [facility] [address] [place], [address] WBC 10-25 SEEN Normal 0-5 [facility] Comment on above: Order Comment: - Performed By: #### L 100.0500, L500.2500 #### [facility] [address] [place], [address] BACTERIA 0 SEEN Normal None Seen [facility] Comment on above: Order Comment: - Performed By: #### L 100.0500, L500.2500 #### [facility] [address] [place], [address] Mucus Ql (Urine sed) 0 SEEN Normal [facility] Comment on above: Order Comment: - Performed By: #### L 100.0500, L500.2500 #### [facility] [address] [place], [address] RBC 0 SEEN Normal 0-5 [facility] Comment on above: Order Comment: Performed By: #### L 100.0500, L500.2500 #### [facility] [address] [place], [address] Bilirubin Test strip Ql (U)O rdered By: Dev Gutierrez on 05-17-2024 Bilirubin Ql (U) Negative Negative [facility] Epithelial cells.squamous LM Ql (Urine sed)Ordered By: Dev Gutierrez on 05-17-2024 Epithelial cells.squamous LM.HPF (Urine sed) [#/Area] 0 /[HPF] 5-10 [facility] Glucose Ql (U)Ordered By: Morris on 05-17-2024 Urine Glucose (UA) Normal mg/dl Normal [facility] Ketones Test strip Ql (U)Ord ered By: Dev Gutierrez on 05-17-2024 Ketones Ql (U) Negative Negative [facility] Microscopic analysis of urin e for red blood cells (RBC)Ordered By: Dev Gutierrez on 05-17-2024 Urine RBC 0 SEEN /hpf 0-5 [facility] Mucus LM Ql (Urine sed)Order ed By: Dev Gutierrez on 05-17-2024 Mucus Ql (Urine sed) 0 SEEN /hpf [facility] Nitrite Test strip Ql (U)Ord ered By: Dev Gutierrez on 05-17-2024 Nitrite Ql (U) Negative Negative [facility] Protein Test strip Ql (U)Ord ered By: Dev Gutierrez on 05-17-2024 Protein Ql (U) 15 mg/dl High Negative [facility] Urine blood detectionOrdered By: Dev Gutierrez on 05-17-2024 Urine Occult Blood 10 /ul High Negative [facility] Urine clarityOrdered By: Danielle Gutierrez on 05-17-2024 Clarity (U) Sl. Cloudy Clear [facility] Urine color determinationOrd ered By: Dev Gutierrez on 05-17-2024 Color (U) Yellow Yellow [facility] Urine leukocyte esterase det ection by dipstickOrdered By: Dev Gutierrez on 05-17-2024 Leukocyte esterase Test strip Ql (U) 500 /ul High Negative [facility] Urine pHOrdered By: Dev rodriguez on 05-17-2024 pH (U) 6.0 [pH] 5.0 - 8.0 [facility] Urine sediment bacteria coun t by microscopy (number/high power field)Ordered By: Dev Gutierrez on 05-17-2024 Bacteria LM.HPF (Urine sed) [#/Area] 0 /[HPF] None Seen [facility] Urine specific gravity measu rementOrdered By: Dev Gutierrez on 05-17-2024 Specific gravity (U) [Rel density] 1.010 1.002-1.030 [facility] Urobilinogen Ql (U)Ordered B y: Dev Gutierrez on 05-17-2024 Urine Urobilinogen Normal mg/dl Normal [facility] White blood cell countOrdere d By: Dev Gutierrez on 05-17-2024 Urine WBC 10-25 SEEN /hpf 0-5 [facility] Abdomen Single Viewon 2023 Abdomen Single View [facility] [address] [place] [address] [id number] Abdomen Single View MR#: [id number] Acct: [id number] Name: LEIGHANN CROWDER Rep #: [id number] : 1940 F 84 From: Chey dixon MD 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 TECHNIQUE: XR Abdomen 1 View. [...] EST , CC: Dr. Rachele Velasquez MD [employer] Development Manager: Signed Normal [facility] CBC-Complete Blood Cnt No Di ffon 04-23-2024 Erythrocyte distribution width (RBC) [Ratio] 13.8 % Normal 11.6-14.6 [facility] Comment on above: Order Comment: Performed By: #### L 100.0500 #### [facility] [address] [place], [address] Hematocrit (Bld) [Volume fraction] 30.1 % Low 37-47 [facility] Comment on above: Order Comment: Performed By: #### L 100.0500 #### [facility] [address] [place], [address] Hemoglobin (Bld) [Mass/Vol] 9.8 g/dL Low 12.0-15.0 [facility] Comment on above: Order Comment: Performed By: #### L 100.0500 #### [facility] [address] [place], [address] MCH (RBC) [Entitic mass] 30.8 pg Normal 27.0-32.0 [facility] Comment on above: Order Comment: Performed By: #### L 100.0500 #### [facility] [address] [place], [address] MCHC (RBC) [Mass/Vol] 32.6 g/dL Normal 32-36 [facility] Comment on above: Order Comment: - Performed By: #### L 100.0500 #### [facility] [address] [place], [address] MCV (RBC) [Entitic vol] 94.7 fL Normal 81-99 [facility] Comment on above: Order Comment: - Performed By: #### L 100.0500 #### [facility] [address] [place], [address] Platelet mean volume (Bld) [Entitic vol] 9.9 fL Normal 6.2-12.0 [facility] Comment on above: Order Comment: - Performed By: #### L 100.0500 #### [facility] [address] [place], [address] Platelets (Bld) [#/Vol] 152 10*3/uL Normal 150-450 [facility] Comment on above: Order Comment: - Performed By: #### L 100.0500 #### [facility] [address] [place], [address] RBC (Bld) [#/Vol] 3.18 10*6/uL Low 4.2-5.4 [facility] Comment on above: Order Comment: - Performed By: #### L 100.0500 #### [facility] [address] [place], [address] RDW SD 47.7 fl High 35.1-43.9 [facility] Comment on above: Order Comment: - Performed By: #### L 100.0500 #### [facility] [address] [place], [address] WBC (Bld) [#/Vol] 4.7 10*3/uL Normal 4.4-11.0 [facility] Comment on above: Order Comment: - Performed By: #### L 100.0500 #### [facility] [address] [place], [address] Erythrocyte distribution wid th (RBC) [Ratio]Ordered By: Dev Gutierrez on 04-23-2024 Erythrocyte distribution width (RBC) [Entitic vol] 47.7 fL High 35.1-43.9 [facility] Erythrocyte distribution wid th ratioOrdered By: Dev Gutierrez on 04-23-2024 Erythrocyte distribution width (RBC) [Ratio] 13.8 % 11.6-14.6 [facility] Hematocrit Auto (Bld) [Volum e fraction]Ordered By: Dev Gutierrez on 04-23-2024 Hematocrit (Bld) [Volume fraction] 30.1 % Low 37-47 [facility] Hemoglobin measurementOrdere d By: Dev Gutierrez on 04-23-2024 Hemoglobin (Bld) [Mass/Vol] 9.8 g/dL Low 12.0-15.0 [facility] MCV (mean corpuscular volume ) determinationOrdered By: Dev Gutierrez on 04-23-2024 MCV (RBC) [Entitic vol] 94.7 fL 81-99 [facility] Mean corpuscular hemoglobin (MCH) determinationOrdered By: Dev Gutierrez on 04-23-2024 MCH (RBC) [Entitic mass] 30.8 pg 27.0-32.0 [facility] Mean corpuscular hemoglobin concentration (MCHC) determinationOrdered By: Dev Gutierrez on 04-23-2024 MCHC (RBC) [Mass/Vol] 32.6 g/dL 32-36 [facility] Mean platelet volume determi nationOrdered By: Dev Gutierrez on 04-23-2024 Platelet mean volume (Bld) [Entitic vol] 9.9 fL 6.2-12.0 [facility] Platelet countOrdered By: Morris on 04-23-2024 Platelets (Bld) [#/Vol] 152 10*3/uL 150-450 [facility] RBC Auto (Bld) [#/Vol]Ordere d By: Dev Gutierrez on 04-23-2024 RBC (Bld) [#/Vol] 3.18 10*6/uL Low 4.2-5.4 [facility] White blood cell (WBC) count Ordered By: Dev Gutierrez on 04-23-2024 WBC (Bld) [#/Vol] 4.7 10*3/uL 4.4-11.0 [facility] Thyroid Stim Hormone (TSH)on 04-06-2024 TSH 0.024 uIU/mL Low 0.358-3.740 [facility] Comment on above: Order Comment: - Performed By: #### L 100.0500, L500.2500 #### [facility] [address] [place], [address] Basic Metabolic Profile (BMP )on 03-20-2024 BUN/CRE 27.2 RATIO High 10-20 [facility] Comment on above: Order Comment: Performed By: #### L 500.4050, L501.9520, L100.0500 #### [facility] [address] [place], [address] CA,Total 9.2 mg/dL Normal 8.5-10.1 [facility] Comment on above: Order Comment: Performed By: #### L 500.4050, L501.9520, L100.0500 #### [facility] [address] [place], [address] Chloride [Moles/Vol] 108 mmol/L High 98-107 [facility] Comment on above: Order Comment: Performed By: #### L 500.4050, L501.9520, L100.0500 #### [facility] [address] [place], [address] CO2 [Moles/Vol] 25.0 mmol/L Normal 21.0-32.0 [facility] Comment on above: Order Comment: Performed By: #### L 500.4050, L501.9520, L100.0500 #### [facility] [address] [place], [address] Creatinine [Mass/Vol] 0.99 mg/dL Normal 0.55-1.02 [facility] Comment on above: Order Comment: Result Comment: The validity of the calculated GFR GFRAA in patients over 70 years has not been determined. Clinical correlation is essential. Performed By: #### L 500.4050, L501.9520, L100.0500 #### [facility] [address] [place], [address] EST GFR - AA 69 mL/min Normal >60 [facility] Comment on above: Order Comment: Result Comment: Afri can [place] GFR Calc Performed By: #### L 500.4050, L501.9520, L100.0500 #### [facility] [address] [place], [address] GAP 8 Normal 5-15 [facility] Comment on above: Order Comment: Performed By: #### L 500.4050, L501.9520, L100.0500 #### [facility] [address] [place], [address] GFR/1.73 sq M.predicted among non-blacks MDRD (S/P/Bld) [Vol rate/Area] 57 mL/min/{1.73_m2} Low >60 [facility] Comment on above: Order Comment: Result Comment: Non- GFR Calc Performed By: #### L 500.4050, L501.9520, L100.0500 #### [facility] [address] [place], [address] Glucose [Mass/Vol] 99 mg/dL Normal 74-106 [facility] Comment on above: Order Comment: Performed By: #### L 500.4050, L501.9520, L100.0500 #### [facility] [address] [place], [address] Potassium [Moles/Vol] 4.1 mmol/L Normal 3.5-5.1 [facility] Comment on above: Order Comment: Performed By: #### L 500.4050, L501.9520, L100.0500 #### [facility] [address] [place], [address] Sodium [Moles/Vol] 141 mmol/L Normal 136-145 [facility] Comment on above: Order Comment: Performed By: #### L 500.4050, L501.9520, L100.0500 #### [facility] [address] [place], [address] Urea nitrogen [Mass/Vol] 27 mg/dL High 7-18 [facility] Comment on above: Order Comment: Performed By: #### L 500.4050, L501.9520, L100.0500 #### [facility] [address] [place], [address] Potassiumon 03-09-2024 Potassium [Moles/Vol] 4.4 mmol/L Normal 3.5-5.1 [facility] Comment on above: Order Comment: Performed By: #### L 100.0500, L500.2500 #### [facility] [address] [place], [address] Potassiumon 03-08-2024 Potassium [Moles/Vol] 4.6 mmol/L Normal 3.5-5.1 [facility] Comment on above: Order Comment: Performed By: #### L 500.4050, L501.9520, L100.0500 #### [facility] [address] [place], [address] Potassiumon 03-07-2024 Potassium [Moles/Vol] 5.1 mmol/L Normal 3.5-5.1 [facility] Comment on above: Order Comment: Performed By: #### L 100.0500, L500.2500 #### [facility] [address] [place], [address] Comprehensive Metabolic Prof ilon 03-06-2024 Albumin [Mass/Vol] 3.1 g/dL Low 3.2-5.0 [facility] Comment on above: Order Comment: - Performed By: #### L 500.4050, L501.9520, L100.0500 #### [facility] [address] [place], [address] Albumin/Globulin [Mass ratio] 1.1 {ratio} Normal 0.9-2.4 [facility] Comment on above: Order Comment: Performed By: #### L 500.4050, L501.9520, L100.0500 #### [facility] [address] [place], [address] ALK P 106 U/L Normal 45-117 [facility] Comment on above: Order Comment: Performed By: #### L 500.4050, L501.9520, L100.0500 #### [facility] [address] [place], [address] ALT [Catalytic activity/Vol] 11 U/L Low 13-56 [facility] Comment on above: Order Comment: Performed By: #### L 500.4050, L501.9520, L100.0500 #### [facility] [address] [place], [address] AST [Catalytic activity/Vol] 12 U/L Low 15-37 [facility] Comment on above: Order Comment: Performed By: #### L 500.4050, L501.9520, L100.0500 #### [facility] [address] [place], [address] Bilirubin [Mass/Vol] 0.80 mg/dL Normal 0.20-1.00 [facility] Comment on above: Order Comment: Result Comment: For patients on eltrombopag therapy, use of Dimension Mckenzie TBIL is not recommended. Performed By: #### L 500.4050, L501.9520, L100.0500 #### [facility] [address] [place], [address] BUN/CRE 22.4 RATIO High 10-20 [facility] Comment on above: Order Comment: Performed By: #### L 500.4050, L501.9520, L100.0500 #### [facility] [address] [place], [address] CA,Total 9.3 mg/dL Normal 8.5-10.1 [facility] Comment on above: Order Comment: Performed By: #### L 500.4050, L501.9520, L100.0500 #### [facility] [address] [place], [address] Chloride [Moles/Vol] 109 mmol/L High 98-107 [facility] Comment on above: Order Comment: Performed By: #### L 500.4050, L501.9520, L100.0500 #### [facility] [address] [place], [address] CO2 [Moles/Vol] 26.0 mmol/L Normal 21.0-32.0 [facility] Comment on above: Order Comment: Performed By: #### L 500.4050, L501.9520, L100.0500 #### [facility] [address] [place], [address] Creatinine [Mass/Vol] 1.25 mg/dL High 0.55-1.02 [facility] Comment on above: Order Comment: Result Comment: The validity of the calculated GFR GFRAA in patients over 70 years has not been determined. Clinical correlation is essential. Performed By: #### L 500.4050, L501.9520, L100.0500 #### [facility] [address] [place], [address] EST GFR - AA 53 mL/min Low >60 [facility] Comment on above: Order Comment: Result Comment: Afri can [place] GFR Calc Performed By: #### L 500.4050, L501.9520, L100.0500 #### [facility] [address] [place], [address] GAP 5 Normal 5-15 [facility] Comment on above: Order Comment: Performed By: #### L 500.4050, L501.9520, L100.0500 #### [facility] [address] [place], [address] GFR/1.73 sq M.predicted among non-blacks MDRD (S/P/Bld) [Vol rate/Area] 44 mL/min/{1.73_m2} Low >60 [facility] Comment on above: Order Comment: Result Comment: Non- GFR Calc Performed By: #### L 500.4050, L501.9520, L100.0500 #### [facility] [address] [place], [address] Globulin (S) [Mass/Vol] 2.8 g/dL Normal 2.2-4.2 [facility] Comment on above: Order Comment: Performed By: #### L 500.4050, L501.9520, L100.0500 #### [facility] [address] [place], [address] Glucose [Mass/Vol] 89 mg/dL Normal 74-106 [facility] Comment on above: Order Comment: Performed By: #### L 500.4050, L501.9520, L100.0500 #### [facility] [address] [place], [address] Potassium [Moles/Vol] 5.5 mmol/L High 3.5-5.1 [facility] Comment on above: Order Comment: Performed By: #### L 500.4050, L501.9520, L100.0500 #### [facility] [address] [place], [address] Sodium [Moles/Vol] 139 mmol/L Normal 136-145 [facility] Comment on above: Order Comment: Performed By: #### L 500.4050, L501.9520, L100.0500 #### [facility] [address] [place], [address] T PROT 5.9 g/dL Low 6.4-8.2 [facility] Comment on above: Order Comment: Performed By: #### L 500.4050, L501.9520, L100.0500 #### [facility] [address] [place], [address] Urea nitrogen [Mass/Vol] 28 mg/dL High 7-18 [facility] Comment on above: Order Comment: Performed By: #### L 500.4050, L501.9520, L100.0500 #### [facility] [address] [place], [address] Magnesiumon 03-06-2024 Magnesium [Mass/Vol] 1.8 mg/dL Normal 1.6-2.6 [facility] Comment on above: Order Comment: Performed By: #### L 500.4050, L501.9520, L100.0500 #### [facility] [address] [place], [address] L5000.0012on 03-03-2024 Vitamin B12 Normal [facility] Comment on above: Order Comment: Result Comment: TEST RESULTS LIMITS Vitamin B12 832 pg/mL 232-1245 TESTING PERFORMED AT [facility]. ORIGINAL REPORT ON FILE IN LAB CONTAINS ADDITIONAL TEST SITE INFORMATION. Performed By: #### L 100.0500, L500.2500 #### [facility] [address] [place], [address] CBC-Complete Blood Cnt No Di ffon 02-27-2024 Erythrocyte distribution width (RBC) [Ratio] 13.0 % Normal 11.6-14.6 [facility] Comment on above: Order Comment: - Performed By: #### L 100.0500, L500.2500 #### [facility] [address] [place], [address] Hematocrit (Bld) [Volume fraction] 27.7 % Low 37-47 [facility] Comment on above: Order Comment: - Performed By: #### L 100.0500, L500.2500 #### [facility] [address] [place], [address] Hemoglobin (Bld) [Mass/Vol] 8.8 g/dL Low 12.0-15.0 [facility] Comment on above: Order Comment: - Performed By: #### L 100.0500, L500.2500 #### [facility] [address] [place], [address] MCH (RBC) [Entitic mass] 30.4 pg Normal 27.0-32.0 [facility] Comment on above: Order Comment: - Performed By: #### L 100.0500, L500.2500 #### [facility] [address] [place], [address] MCHC (RBC) [Mass/Vol] 31.8 g/dL Low 32-36 [facility] Comment on above: Order Comment: - Performed By: #### L 100.0500, L500.2500 #### [facility] [address] [place], [address] MCV (RBC) [Entitic vol] 95.8 fL Normal 81-99 [facility] Comment on above: Order Comment: - Performed By: #### L 100.0500, L500.2500 #### [facility] [address] [place], [address] Platelet mean volume (Bld) [Entitic vol] 9.9 fL Normal 6.2-12.0 [facility] Comment on above: Order Comment: Performed By: #### L 100.0500, L500.2500 #### [facility] [address] [place], [address] Platelets (Bld) [#/Vol] 134 10*3/uL Low 150-450 [facility] Comment on above: Order Comment: Performed By: #### L 100.0500, L500.2500 #### [facility] [address] [place], [address] RBC (Bld) [#/Vol] 2.89 10*6/uL Low 4.2-5.4 [facility] Comment on above: Order Comment: - Performed By: #### L 100.0500, L500.2500 #### [facility] [address] [place], [address] RDW SD 46.1 fl High 35.1-43.9 [facility] Comment on above: Order Comment: - Performed By: #### L 100.0500, L500.2500 #### [facility] [address] [place], [address] WBC (Bld) [#/Vol] 4.9 10*3/uL Normal 4.4-11.0 [facility] Comment on above: Order Comment: - Performed By: #### L 100.0500, L500.2500 #### [facility] [address] [place], [address] Comprehensive Metabolic Prof ilon 02-27-2024 Albumin [Mass/Vol] 3.1 g/dL Low 3.2-5.0 [facility] Comment on above: Order Comment: - Performed By: #### L 100.0500, L500.2500 #### [facility] [address] [place], [address] Albumin/Globulin [Mass ratio] 1.1 {ratio} Normal 0.9-2.4 [facility] Comment on above: Order Comment: Performed By: #### L 100.0500, L500.2500 #### [facility] [address] [place], [address] ALK P 94 U/L Normal 45-117 [facility] Comment on above: Order Comment: Performed By: #### L 100.0500, L500.2500 #### [facility] [address] [place], [address] ALT [Catalytic activity/Vol] 12 U/L Low 13-56 [facility] Comment on above: Order Comment: - Performed By: #### L 100.0500, L500.2500 #### [facility] [address] [place], [address] AST [Catalytic activity/Vol] 14 U/L Low 15-37 [facility] Comment on above: Order Comment: - Performed By: #### L 100.0500, L500.2500 #### [facility] [address] [place], [address] Bilirubin [Mass/Vol] 0.80 mg/dL Normal 0.20-1.00 [facility] Comment on above: Order Comment: Result Comment: For patients on eltrombopag therapy, use of Dimension [facility]enzie TBIL is not recommended. Performed By: #### L 100.0500, L500.2500 #### [facility] [address] [place], [address] BUN/CRE 24.0 RATIO High 10-20 [facility] Comment on above: Order Comment: Performed By: #### L 100.0500, L500.2500 #### [facility] [address] [place], [address] CA,Total 8.9 mg/dL Normal 8.5-10.1 [facility] Comment on above: Order Comment: Performed By: #### L 100.0500, L500.2500 #### [facility] [address] [place], [address] Chloride [Moles/Vol] 109 mmol/L High 98-107 [facility] Comment on above: Order Comment: Performed By: #### L 100.0500, L500.2500 #### [facility] [address] [place], [address] CO2 [Moles/Vol] 25.0 mmol/L Normal 21.0-32.0 [facility] Comment on above: Order Comment: Performed By: #### L 100.0500, L500.2500 #### [facility] [address] [place], [address] Creatinine [Mass/Vol] 1.29 mg/dL High 0.55-1.02 [facility] Comment on above: Order Comment: Result Comment: The validity of the calculated GFR GFRAA in patients over 70 years has not been determined. Clinical correlation is essential. Performed By: #### L 100.0500, L500.2500 #### [facility] [address] [place], [address] EST GFR - AA 51 mL/min Low >60 [facility] Comment on above: Order Comment: Result Comment: Afri can [place] GFR Calc Performed By: #### L 100.0500, L500.2500 #### [facility] [address] [place], [address] GAP 6 Normal 5-15 [facility] Comment on above: Order Comment: Performed By: #### L 100.0500, L500.2500 #### [facility] [address] [place], [address] GFR/1.73 sq M.predicted among non-blacks MDRD (S/P/Bld) [Vol rate/Area] 42 mL/min/{1.73_m2} Low >60 [facility] Comment on above: Order Comment: Result Comment: Non- GFR Calc Performed By: #### L 100.0500, L500.2500 #### [facility] [address] [place], [address] Globulin (S) [Mass/Vol] 2.7 g/dL Normal 2.2-4.2 [facility] Comment on above: Order Comment: Performed By: #### L 100.0500, L500.2500 #### [facility] [address] [place], [address] Glucose [Mass/Vol] 95 mg/dL Normal 74-106 [facility] Comment on above: Order Comment: Performed By: #### L 100.0500, L500.2500 #### [facility] [address] [place], [address] Potassium [Moles/Vol] 4.8 mmol/L Normal 3.5-5.1 [facility] Comment on above: Order Comment: Performed By: #### L 100.0500, L500.2500 #### [facility] [address] [place], [address] Sodium [Moles/Vol] 140 mmol/L Normal 136-145 [facility] Comment on above: Order Comment: Performed By: #### L 100.0500, L500.2500 #### [facility] [address] [place], [address] T PROT 5.8 g/dL Low 6.4-8.2 [facility] Comment on above: Order Comment: Performed By: #### L 100.0500, L500.2500 #### [facility] [address] [place], [address] Urea nitrogen [Mass/Vol] 31 mg/dL High 7-18 [facility] Comment on above: Order Comment: Performed By: #### L 100.0500, L500.2500 #### [facility] [address] [place], [address] Thyroid Stim Hormone (TSH)on 02-27-2024 TSH 0.011 uIU/mL Low 0.358-3.740 [facility] Comment on above: Order Comment: Performed By: #### L 100.0500, L500.2500 #### [facility] [address] [place], [address] Basic Metabolic Profile (BMP )on 01-23-2024 BUN/CRE 26.7 RATIO High 10-20 [facility] Comment on above: Order Comment: Performed By: #### L 100.0500, L500.2500 #### [facility] [address] [place], [address] CA,Total 9.2 mg/dL Normal 8.5-10.1 [facility] Comment on above: Order Comment: Performed By: #### L 100.0500, L500.2500 #### [facility] [address] [place], [address] Chloride [Moles/Vol] 106 mmol/L Normal 98-107 [facility] Comment on above: Order Comment: Performed By: #### L 100.0500, L500.2500 #### [facility] [address] [place], [address] CO2 [Moles/Vol] 27.0 mmol/L Normal 21.0-32.0 [facility] Comment on above: Order Comment: Performed By: #### L 100.0500, L500.2500 #### [facility] [address] [place], [address] Creatinine [Mass/Vol] 1.01 mg/dL Normal 0.55-1.02 [facility] Comment on above: Order Comment: Result Comment: The validity of the calculated GFR GFRAA in patients over 70 years has not been determined. Clinical correlation is essential. Performed By: #### L 100.0500, L500.2500 #### [facility] [address] [place], [address] EST GFR - AA 67 mL/min Normal >60 [facility] Comment on above: Order Comment: Result Comment: Afri can [place] GFR Calc Performed By: #### L 100.0500, L500.2500 #### [facility] [address] [place], [address] GAP 5 Normal 5-15 [facility] Comment on above: Order Comment: Performed By: #### L 100.0500, L500.2500 #### [facility] [address] [place], [address] GFR/1.73 sq M.predicted among non-blacks MDRD (S/P/Bld) [Vol rate/Area] 56 mL/min/{1.73_m2} Low >60 [facility] Comment on above: Order Comment: Result Comment: Non- GFR Calc Performed By: #### L 100.0500, L500.2500 #### [facility] [address] [place], [address] Glucose [Mass/Vol] 94 mg/dL Normal 74-106 [facility] Comment on above: Order Comment: Performed By: #### L 100.0500, L500.2500 #### [facility] [address] [place], [address] Potassium [Moles/Vol] 4.4 mmol/L Normal 3.5-5.1 [facility] Comment on above: Order Comment: Performed By: #### L 100.0500, L500.2500 #### [facility] [address] [place], [address] Sodium [Moles/Vol] 138 mmol/L Normal 136-145 [facility] Comment on above: Order Comment: Performed By: #### L 100.0500, L500.2500 #### [facility] [address] [place], [address] Urea nitrogen [Mass/Vol] 27 mg/dL High 7-18 [facility] Comment on above: Order Comment: Performed By: #### L 100.0500, L500.2500 #### [facility] [address] [place], [address] Urine Cultureon 01-19-2024 [facility] Culture exhibits no growth. Normal [facility] Comment on above: Performed By: #### L 500.4050, L501.9520, L100.0500 #### [facility] [address] [place], [address] CBC-Complete Blood Cnt No Di ffon 01-18-2024 Erythrocyte distribution width (RBC) [Ratio] 13.3 % Normal 11.6-14.6 [facility] Comment on above: Order Comment: Performed By: #### L 500.4050, L501.9520, L100.0500 #### [facility] [address] [place], [address] Hematocrit (Bld) [Volume fraction] 29.8 % Low 37-47 [facility] Comment on above: Order Comment: Performed By: #### L 500.4050, L501.9520, L100.0500 #### [facility] [address] [place], [address] Hemoglobin (Bld) [Mass/Vol] 9.6 g/dL Low 12.0-15.0 [facility] Comment on above: Order Comment: Performed By: #### L 500.4050, L501.9520, L100.0500 #### [facility] [address] [place], [address] MCH (RBC) [Entitic mass] 30.9 pg Normal 27.0-32.0 [facility] Comment on above: Order Comment: Performed By: #### L 500.4050, L501.9520, L100.0500 #### [facility] [address] [place], [address] MCHC (RBC) [Mass/Vol] 32.2 g/dL Normal 32-36 [facility] Comment on above: Order Comment: Performed By: #### L 500.4050, L501.9520, L100.0500 #### [facility] [address] [place], [address] MCV (RBC) [Entitic vol] 95.8 fL Normal 81-99 [facility] Comment on above: Order Comment: - Performed By: #### L 500.4050, L501.9520, L100.0500 #### [facility] [facility] [address] [place], [address] Platelet mean volume (Bld) [Entitic vol] 9.7 fL Normal 6.2-12.0 [facility] Comment on above: Order Comment: Performed By: #### L 500.4050, L501.9520, L100.0500 #### [facility] [address] [place], [address] Platelets (Bld) [#/Vol] 142 10*3/uL Low 150-450 [facility] Comment on above: Order Comment: Performed By: #### L 500.4050, L501.9520, L100.0500 #### [facility] [address] [place], [address] RBC (Bld) [#/Vol] 3.11 10*6/uL Low 4.2-5.4 [facility] Comment on above: Order Comment: Performed By: #### L 500.4050, L501.9520, L100.0500 #### [facility] [address] [place], [address] RDW SD 46.8 fl High 35.1-43.9 [facility] Comment on above: Order Comment: Performed By: #### L 500.4050, L501.9520, L100.0500 #### [facility] [address] [place], [address] WBC (Bld) [#/Vol] 4.8 10*3/uL Normal 4.4-11.0 [facility] Comment on above: Order Comment: Performed By: #### L 500.4050, L501.9520, L100.0500 #### [facility] [address] [place], [address] Ferritinon 01-18-2024 Ferritin [Mass/Vol] 62 ng/mL Normal 8-252 [facility] Comment on above: Order Comment: - Performed By: #### L 500.4050, L501.9520, L100.0500 #### [facility] [address] [place], [address] Folates, (Folic Acid)on FOLATES 14.40 ng/mL Normal 3.1-55.4 [facility] Comment on above: Order Comment: - Performed By: #### L 500.4050, L501.9520, L100.0500 #### [facility] [address] [place], [address] Iron+Iron Binding Capacityon 01-18-2024 Iron [Mass/Vol] 50 ug/dL Normal 50-170 [facility] Comment on above: Order Comment: Performed By: #### L 500.4050, L501.9520, L100.0500 #### [facility] [address] [place], [address] IRON SATURATION 16.9 Normal 15.0-55.0 [facility] Comment on above: Order Comment: - Performed By: #### L 500.4050, L501.9520, L100.0500 #### [facility] [address] [place], [address] TIBC 295 ug/dL Normal 250-450 [facility] Comment on above: Order Comment: - Performed By: #### L 500.4050, L501.9520, L100.0500 #### [facility] [address] [place], [address] Urinalysis, Completeon 01-17 BACTERIA 0 SEEN Normal None Seen [facility] Comment on above: Order Comment: - Performed By: #### L 500.4050, L501.9520, L100.0500 #### [facility] [address] [place], [address] EPI,SQUAMOUS 0 SEEN Normal 5-10 [facility] Comment on above: Order Comment: Performed By: #### L 500.4050, L501.9520, L100.0500 #### [facility] [address] [place], [address] Mucus Ql (Urine sed) 0 SEEN Normal [facility] Comment on above: Order Comment: Performed By: #### L 500.4050, L501.9520, L100.0500 #### [facility] [address] [place], [address] RBC 0 SEEN Normal 0-5 [facility] Comment on above: Order Comment: Performed By: #### L 500.4050, L501.9520, L100.0500 #### [facility] [address] [place], [address] WBC 0 SEEN Normal 0-5 [facility] Comment on above: Order Comment: Performed By: #### L 500.4050, L501.9520, L100.0500 #### [facility] [address] [place], [address] Vitamin B12on 01-18-2024 Cobalamin (Vitamin B12) [Mass/Vol] 768 pg/mL Normal 211-911 [facility] Comment on above: Order Comment: Performed By: #### L 500.4050, L501.9520, L100.0500 #### [facility] [address] [place], [address] Basic Metabolic Profile (BMP )on 01-17-2024 BUN/CRE 24.1 RATIO High 10-20 [facility] Comment on above: Order Comment: Performed By: #### L 100.0500, L500.2500 #### [facility] [address] [place], [address] CA,Total 9.6 mg/dL Normal 8.5-10.1 [facility] Comment on above: Order Comment: Performed By: #### L 100.0500, L500.2500 #### [facility] [address] [place], [address] Chloride [Moles/Vol] 105 mmol/L Normal 98-107 [facility] Comment on above: Order Comment: Performed By: #### L 100.0500, L500.2500 #### [facility] [address] [place], [address] CO2 [Moles/Vol] 27.0 mmol/L Normal 21.0-32.0 [facility] Comment on above: Order Comment: Performed By: #### L 100.0500, L500.2500 #### [facility] [address] [place], [address] Creatinine [Mass/Vol] 1.08 mg/dL High 0.55-1.02 [facility] Comment on above: Order Comment: Result Comment: The validity of the calculated GFR GFRAA in patients over 70 years has not been determined. Clinical correlation is essential. Performed By: #### L 100.0500, L500.2500 #### [facility] [address] [place], [address] EST GFR - AA 62 mL/min Normal >60 [facility] Comment on above: Order Comment: Result Comment: Afri can [place] GFR Calc Performed By: #### L 100.0500, L500.2500 #### [facility] [address] [place], [address] GAP 6 Normal 5-15 [facility] Comment on above: Order Comment: Performed By: #### L 100.0500, L500.2500 #### [facility] [address] [place], [address] GFR/1.73 sq M.predicted among non-blacks MDRD (S/P/Bld) [Vol rate/Area] 52 mL/min/{1.73_m2} Low >60 [facility] Comment on above: Order Comment: Result Comment: Non- GFR Calc Performed By: #### L 100.0500, L500.2500 #### [facility] [address] [place], [address] Glucose [Mass/Vol] 96 mg/dL Normal 74-106 [facility] Comment on above: Order Comment: Performed By: #### L 100.0500, L500.2500 #### [facility] [address] [place], [address] Potassium [Moles/Vol] 4.9 mmol/L Normal 3.5-5.1 [facility] Comment on above: Order Comment: Performed By: #### L 100.0500, L500.2500 #### [facility] [address] [place], [address] Sodium [Moles/Vol] 138 mmol/L Normal 136-145 [facility] Comment on above: Order Comment: Performed By: #### L 100.0500, L500.2500 #### [facility] [address] [place], [address] Urea nitrogen [Mass/Vol] 26 mg/dL High 7-18 [facility] Comment on above: Order Comment: Performed By: #### L 100.0500, L500.2500 #### [facility] [address] [place], [address] CBC-Complete Blood Cnt No Di ffon 01-17-2024 Erythrocyte distribution width (RBC) [Ratio] 13.2 % Normal 11.6-14.6 [facility] Comment on above: Order Comment: Performed By: #### L 100.0500, L500.2500 #### [facility] [address] [place], [address] Hematocrit (Bld) [Volume fraction] 28.0 % Low 37-47 [facility] Comment on above: Order Comment: - Performed By: #### L 100.0500, L500.2500 #### [facility] [address] [place], [address] Hemoglobin (Bld) [Mass/Vol] 8.8 g/dL Low 12.0-15.0 [facility] Comment on above: Order Comment: Performed By: #### L 100.0500, L500.2500 #### [facility] [address] [place], [address] MCH (RBC) [Entitic mass] 30.8 pg Normal 27.0-32.0 [facility] Comment on above: Order Comment: Performed By: #### L 100.0500, L500.2500 #### [facility] [address] [place], [address] MCHC (RBC) [Mass/Vol] 31.4 g/dL Low 32-36 [facility] Comment on above: Order Comment: Performed By: #### L 100.0500, L500.2500 #### [facility] [address] [place], [address] MCV (RBC) [Entitic vol] 97.9 fL Normal 81-99 [facility] Comment on above: Order Comment: Performed By: #### L 100.0500, L500.2500 #### [facility] [address] [place], [address] Platelet mean volume (Bld) [Entitic vol] 10.1 fL Normal 6.2-12.0 [facility] Comment on above: Order Comment: - Performed By: #### L 100.0500, L500.2500 #### [facility] [address] [place], [address] Platelets (Bld) [#/Vol] 122 10*3/uL Low 150-450 [facility] Comment on above: Order Comment: - Performed By: #### L 100.0500, L500.2500 #### [facility] [address] [place], [address] RBC (Bld) [#/Vol] 2.86 10*6/uL Low 4.2-5.4 [facility] Comment on above: Order Comment: - Performed By: #### L 100.0500, L500.2500 #### [facility] [address] [place], [address] RDW SD 47.1 fl High 35.1-43.9 [facility] Comment on above: Order Comment: - Performed By: #### L 100.0500, L500.2500 #### [facility] [address] [place], [address] WBC (Bld) [#/Vol] 3.6 10*3/uL Low 4.4-11.0 [facility] Comment on above: Order Comment: Performed By: #### L 100.0500, L500.2500 #### [facility] [address] [place], [address] Urine Cultureon 12-21-2023 [facility] Below infection level. Mixed Gram Positive Organisms [place] Count 1000-10,000 [facility] Mixed contaminants. Submit a new specimen if indicated. Normal [facility] Comment on above: Performed By: #### M 100.2200, L400.0001 #### [facility] [address] [place], [address] CBC-Complete Blood Cnt No Di ffon 12-20-2023 Erythrocyte distribution width (RBC) [Ratio] 13.4 % Normal 11.6-14.6 [facility] Comment on above: Order Comment: - Performed By: #### L 100.0500, L500.2500 #### [facility] [address] [place], [address] Hematocrit (Bld) [Volume fraction] 31.6 % Low 37-47 [facility] Comment on above: Order Comment: - Performed By: #### L 100.0500, L500.2500 #### [facility] [address] [place], [address] Hemoglobin (Bld) [Mass/Vol] 10.0 g/dL Low 12.0-15.0 [facility] Comment on above: Order Comment: Performed By: #### L 100.0500, L500.2500 #### [facility] [address] [place], [address] MCH (RBC) [Entitic mass] 30.7 pg Normal 27.0-32.0 [facility] Comment on above: Order Comment: Performed By: #### L 100.0500, L500.2500 #### [facility] [address] [place], [address] MCHC (RBC) [Mass/Vol] 31.6 g/dL Low 32-36 [facility] Comment on above: Order Comment: Performed By: #### L 100.0500, L500.2500 #### [facility] [address] [place], [address] MCV (RBC) [Entitic vol] 96.9 fL Normal 81-99 [facility] Comment on above: Order Comment: Performed By: #### L 100.0500, L500.2500 #### [facility] [address] [place], [address] Platelet mean volume (Bld) [Entitic vol] 10.0 fL Normal 6.2-12.0 [facility] Comment on above: Order Comment: - Performed By: #### L 100.0500, L500.2500 #### [facility] [address] [place], [address] Platelets (Bld) [#/Vol] 142 10*3/uL Low 150-450 [facility] Comment on above: Order Comment: - Performed By: #### L 100.0500, L500.2500 #### [facility] [address] [place], [address] RBC (Bld) [#/Vol] 3.26 10*6/uL Low 4.2-5.4 [facility] Comment on above: Order Comment: - Performed By: #### L 100.0500, L500.2500 #### [facility] [address] [place], [address] RDW SD 48.0 fl High 35.1-43.9 [facility] Comment on above: Order Comment: - Performed By: #### L 100.0500, L500.2500 #### [facility] [address] [place], [address] WBC (Bld) [#/Vol] 5.0 10*3/uL Normal 4.4-11.0 [facility] Comment on above: Order Comment: - Performed By: #### L 100.0500, L500.2500 #### [facility] [address] [place], [address] Comprehensive Metabolic Prof ilon 12-20-2023 Albumin [Mass/Vol] 3.2 g/dL Normal 3.2-5.0 [facility] Comment on above: Order Comment: - Performed By: #### L 100.0500, L500.2500 #### [facility] [address] [place], [address] Albumin/Globulin [Mass ratio] 1.0 {ratio} Normal 0.9-2.4 [facility] Comment on above: Order Comment: Performed By: #### L 100.0500, L500.2500 #### [facility] [address] [place], [address] ALK P 99 U/L Normal 45-117 [facility] Comment on above: Order Comment: Performed By: #### L 100.0500, L500.2500 #### [facility] [address] [place], [address] ALT [Catalytic activity/Vol] 13 U/L Normal 13-56 [facility] Comment on above: Order Comment: Performed By: #### L 100.0500, L500.2500 #### [facility] [address] [place], [address] AST [Catalytic activity/Vol] 17 U/L Normal 15-37 [facility] Comment on above: Order Comment: Performed By: #### L 100.0500, L500.2500 #### [facility] [address] [place], [address] Bilirubin [Mass/Vol] 1.30 mg/dL High 0.20-1.00 [facility] Comment on above: Order Comment: Result Comment: For patients on eltrombopag therapy, use of Dimension Mckenzie TBIL is not recommended. Performed By: #### L 100.0500, L500.2500 #### [facility] [address] [place], [address] BUN/CRE 24.1 RATIO High 10-20 [facility] Comment on above: Order Comment: Performed By: #### L 100.0500, L500.2500 #### [facility] [address] [place], [address] CA,Total 9.5 mg/dL Normal 8.5-10.1 [facility] Comment on above: Order Comment: Performed By: #### L 100.0500, L500.2500 #### [facility] [address] [place], [address] Chloride [Moles/Vol] 108 mmol/L High 98-107 [facility] Comment on above: Order Comment: Performed By: #### L 100.0500, L500.2500 #### [facility] [address] [place], [address] CO2 [Moles/Vol] 30.0 mmol/L Normal 21.0-32.0 [facility] Comment on above: Order Comment: Performed By: #### L 100.0500, L500.2500 #### [facility] [address] [place], [address] Creatinine [Mass/Vol] 1.16 mg/dL High 0.55-1.02 [facility] Comment on above: Order Comment: Result Comment: The validity of the calculated GFR GFRAA in patients over 70 years has not been determined. Clinical correlation is essential. Performed By: #### L 100.0500, L500.2500 #### [facility] [address] [place], [address] EST GFR - AA 57 mL/min Low >60 [facility] Comment on above: Order Comment: Result Comment: Afri can [place] GFR Calc Performed By: #### L 100.0500, L500.2500 #### [facility] [address] [place], [address] GAP 3 Low 5-15 [facility] Comment on above: Order Comment: Performed By: #### L 100.0500, L500.2500 #### [facility] [address] [place], [address] GFR/1.73 sq M.predicted among non-blacks MDRD (S/P/Bld) [Vol rate/Area] 47 mL/min/{1.73_m2} Low >60 [facility] Comment on above: Order Comment: Result Comment: Non- GFR Calc Performed By: #### L 100.0500, L500.2500 #### [facility] [address] [place], [address] Globulin (S) [Mass/Vol] 3.2 g/dL Normal 2.2-4.2 [facility] Comment on above: Order Comment: Performed By: #### L 100.0500, L500.2500 #### [facility] [address] [place], [address] Glucose [Mass/Vol] 89 mg/dL Normal 74-106 [facility] Comment on above: Order Comment: Performed By: #### L 100.0500, L500.2500 #### [facility] [address] [place], [address] Potassium [Moles/Vol] 4.8 mmol/L Normal 3.5-5.1 [facility] Comment on above: Order Comment: Performed By: #### L 100.0500, L500.2500 #### [facility] [address] [place], [address] Sodium [Moles/Vol] 141 mmol/L Normal 136-145 [facility] Comment on above: Order Comment: Performed By: #### L 100.0500, L500.2500 #### [facility] [address] [place], [address] T PROT 6.4 g/dL Normal 6.4-8.2 [facility] Comment on above: Order Comment: Performed By: #### L 100.0500, L500.2500 #### [facility] [address] [place], [address] Urea nitrogen [Mass/Vol] 28 mg/dL High 7-18 [facility] Comment on above: Order Comment: 209-1 Performed By: #### L 100.0500, L500.2500 #### [facility] [address] [place], [address] Urinalysis, Completeon 12-19 BACTERIA RARE Normal None Seen [facility] Comment on above: Order Comment: CLEAN CATCH Performed By: #### M 100.2200, L400.0001 #### [facility] [address] [place], [address] EPI,SQUAMOUS 0-5 SEEN Normal 5-10 [facility] Comment on above: Order Comment: CLEAN CATCH Performed By: #### M 100.2200, L400.0001 #### [facility] [address] [place], [address] EPI,TRANSITION 0-5 SEEN Normal 0-5 [facility] Comment on above: Order Comment: CLEAN CATCH Performed By: #### M 100.2200, L400.0001 #### [facility] [address] [place], [address] RBC 0-5 SEEN Normal 0-5 [facility] Comment on above: Order Comment: CLEAN CATCH Performed By: #### M 100.2200, L400.0001 #### [facility] [address] [place], [address] Mucus Ql (Urine sed) 0 SEEN Normal [facility] Comment on above: Order Comment: CLEAN CATCH Performed By: #### M 100.2200, L400.0001 #### [facility] [address] [place], [address] WBC 0 SEEN Normal 0-5 [facility] Comment on above: Order Comment: CLEAN CATCH Performed By: #### M 100.2200, L400.0001 #### [facility] [address] [place], [address] CBC-Complete Blood Cnt No Di ffon 12-05-2023 Erythrocyte distribution width (RBC) [Ratio] 13.4 % Normal 11.6-14.6 [facility] Comment on above: Order Comment: Performed By: #### L 500.4050, L100.0500 #### [facility] [address] [place], [address] Hematocrit (Bld) [Volume fraction] 29.3 % Low 37-47 [facility] Comment on above: Order Comment: Performed By: #### L 500.4050, L100.0500 #### [facility] [address] [place], [address] Hemoglobin (Bld) [Mass/Vol] 9.3 g/dL Low 12.0-15.0 [facility] Comment on above: Order Comment: Performed By: #### L 500.4050, L100.0500 #### [facility] [address] [place], [address] MCH (RBC) [Entitic mass] 30.3 pg Normal 27.0-32.0 [facility] Comment on above: Order Comment: Performed By: #### L 500.4050, L100.0500 #### [facility] [address] [place], [address] MCHC (RBC) [Mass/Vol] 31.7 g/dL Low 32-36 [facility] Comment on above: Order Comment: Performed By: #### L 500.4050, L100.0500 #### [facility] [address] [place], [address] MCV (RBC) [Entitic vol] 95.4 fL Normal 81-99 [facility] Comment on above: Order Comment: Performed By: #### L 500.4050, L100.0500 #### [facility] [address] [place], [address] Platelet mean volume (Bld) [Entitic vol] 9.8 fL Normal 6.2-12.0 [facility] Comment on above: Order Comment: - Performed By: #### L 500.4050, L100.0500 #### [facility] [address] [place], [address] Platelets (Bld) [#/Vol] 144 10*3/uL Low 150-450 [facility] Comment on above: Order Comment: - Performed By: #### L 500.4050, L100.0500 #### [facility] [address] [place], [address] RBC (Bld) [#/Vol] 3.07 10*6/uL Low 4.2-5.4 [facility] Comment on above: Order Comment: - Performed By: #### L 500.4050, L100.0500 #### [facility] [address] [place], [address] RDW SD 46.7 fl High 35.1-43.9 [facility] Comment on above: Order Comment: - Performed By: #### L 500.4050, L100.0500 #### [facility] [address] [place], [address] WBC (Bld) [#/Vol] 4.1 10*3/uL Low 4.4-11.0 [facility] Comment on above: Order Comment: - Performed By: #### L 500.4050, L100.0500 #### [facility] [address] [place], [address] Comprehensive Metabolic Prof ilon 12-05-2023 Albumin [Mass/Vol] 3.1 g/dL Low 3.2-5.0 [facility] Comment on above: Order Comment: -1 Performed By: #### L 500.4050, L100.0500 #### [facility] [address] [place], [address] Albumin/Globulin [Mass ratio] 1.1 {ratio} Normal 0.9-2.4 [facility] Comment on above: Order Comment: - Performed By: #### L 500.4050, L100.0500 #### [facility] [address] [place], [address] ALK P 97 U/L Normal 45-117 [facility] Comment on above: Order Comment: - Performed By: #### L 500.4050, L100.0500 #### [facility] [address] [place], [address] ALT [Catalytic activity/Vol] 13 U/L Normal 13-56 [facility] Comment on above: Order Comment: Performed By: #### L 500.4050, L100.0500 #### [facility] [address] [place], [address] AST [Catalytic activity/Vol] 3 U/L Low 15-37 [facility] Comment on above: Order Comment: Performed By: #### L 500.4050, L100.0500 #### [facility] [address] [place], [address] Bilirubin [Mass/Vol] 1.20 mg/dL High 0.20-1.00 [facility] Comment on above: Order Comment: Result Comment: For patients on eltrombopag therapy, use of Dimension Mckenzie TBIL is not recommended. Performed By: #### L 500.4050, L100.0500 #### [facility] [address] [place], [address] BUN/CRE 32.4 RATIO High 10-20 [facility] Comment on above: Order Comment: Performed By: #### L 500.4050, L100.0500 #### [facility] [address] [place], [address] CA,Total 9.5 mg/dL Normal 8.5-10.1 [facility] Comment on above: Order Comment: Performed By: #### L 500.4050, L100.0500 #### [facility] [address] [place], [address] Chloride [Moles/Vol] 105 mmol/L Normal 98-107 [facility] Comment on above: Order Comment: Performed By: #### L 500.4050, L100.0500 #### [facility] [address] [place], [address] CO2 [Moles/Vol] 28.0 mmol/L Normal 21.0-32.0 [facility] Comment on above: Order Comment: Performed By: #### L 500.4050, L100.0500 #### [facility] [address] [place], [address] Creatinine [Mass/Vol] 1.05 mg/dL High 0.55-1.02 [facility] Comment on above: Order Comment: Result Comment: The validity of the calculated GFR GFRAA in patients over 70 years has not been determined. Clinical correlation is essential. Performed By: #### L 500.4050, L100.0500 #### [facility] [address] [place], [address] EST GFR - AA 64 mL/min Normal >60 [facility] Comment on above: Order Comment: Result Comment: Afri can [place] GFR Calc Performed By: #### L 500.4050, L100.0500 #### [facility] [address] [place], [address] GAP 6 Normal 5-15 [facility] Comment on above: Order Comment: Performed By: #### L 500.4050, L100.0500 #### [facility] [address] [place], [address] GFR/1.73 sq M.predicted among non-blacks MDRD (S/P/Bld) [Vol rate/Area] 53 mL/min/{1.73_m2} Low >60 [facility] Comment on above: Order Comment: Result Comment: Non- GFR Calc Performed By: #### L 500.4050, L100.0500 #### [facility] [address] [place], [address] Globulin (S) [Mass/Vol] 2.7 g/dL Normal 2.2-4.2 [facility] Comment on above: Order Comment: Performed By: #### L 500.4050, L100.0500 #### [facility] [address] [place], [address] Glucose [Mass/Vol] 98 mg/dL Normal 74-106 [facility] Comment on above: Order Comment: Performed By: #### L 500.4050, L100.0500 #### [facility] [address] [place], [address] Potassium [Moles/Vol] 4.6 mmol/L Normal 3.5-5.1 [facility] Comment on above: Order Comment: Performed By: #### L 500.4050, L100.0500 #### [facility] [address] [place], [address] Sodium [Moles/Vol] 139 mmol/L Normal 136-145 [facility] Comment on above: Order Comment: Performed By: #### L 500.4050, L100.0500 #### [facility] [address] [place], [address] T PROT 5.8 g/dL Low 6.4-8.2 [facility] Comment on above: Order Comment: - Performed By: #### L 500.4050, L100.0500 #### [facility] [address] [place], [address] Urea nitrogen [Mass/Vol] 34 mg/dL High 7-18 [facility] Comment on above: Order Comment: - Performed By: #### L 500.4050, L100.0500 #### [facility] [address] [place], [address] Encounters Encounter Date Encounter Type Care Provider Facility Start: 09-24-2024 End: 09-24-2024 ambulatory Out of Town Doctor [facility] Work Phone: Start: 09-24-2024 End: 09-24-2024 [facility] Start: 09-24-2024 Registered [facility] Start: 09-24-2024 End: 09-24-2024 ambulatory Dev GUTIERREZ Facility:[facility] Start: 09-17-2024 End: 09-17-2024 ambulatory Out of Town Doctor [facility] Work Phone: Start: 09-17-2024 End: 09-17-2024 [facility]ed [facility] Start: 09-17-2024 [facility] Start: 09-17-2024 End: 09-17-2024 ambulatory Dev GUTIERREZ Facility:[facility] Start: 09-11-2024 End: 09-11-2024 ambulatory Out of Town Doctor [facility] Work Phone: Start: 09-11-2024 End: 09-11-2024 Departed Referred [facility] Start: 09-11-2024 Registered Referred Dev [facility]rez [facility] Start: 09-11-2024 End: 09-11-2024 ambulatory Out of Town Doctor Facility:[facility] Start: 09-03-2024 End: 09-03-2024 ambulatory Out of Town Doctor [facility] Work Phone: Start: 09-03-2024 End: 09-03-2024 Departed Referred Dev Gutierrez [facility] Start: 09-03-2024 End: 09-03-2024 ambulatory Out of Town Doctor Facility:[facility] Start: 08-13-2024 End: 08-13-2024 ambulatory Out of Town Doctor [facility] Work Phone: Start: 08-13-2024 End: 08-13-2024 Departed Referred Jack Rutledge [facility] Start: 08-13-2024 Registered Referred [facility] Start: 08-13-2024 End: 08-13-2024 ambulatory Jack Rutledge OLS Facility:[facility] Start: 07-30-2024 End: 07-30-2024 ambulatory Out of Town Doctor [facility] Work Phone: Start: 07-30-2024 End: 07-30-2024 Departed [facility] Start: 07-30-2024 Registered Referred Dev Gutierrez MD [facility] Start: 07-30-2024 End: 07-30-2024 ambulatory Out of Town Doctor Facility:[facility] Start: 07-24-2024 End: 07-24-2024 Departed Referred Dev Gutierrez MD [facility] Start: 07-24-2024 End: 07-24-2024 ambulatory Out of Town Doctor [facility] Work Phone: Start: 07-11-2024 End: 07-11-2024 ambulatory Out of Town Doctor [facility] Work Phone: Start: 07-11-2024 End: 07-11-2024 Departed [facility] Start: 07-11-2024 Registered Referred Dev Deperro MD -[facility] Start: 07-11-2024 End: 07-11-2024 ambulatory Out of Town Doctor Facility:[facility] Start: 07-06-2024 ambulatory Dev GUTIERREZ Facili ty:[facility] Start: 07-06-2024 Registered Referred Dev Gutierrez MD [facility] Start: 07-02-2024 ambulatory Dev GUTIERREZ Facili ty:[facility] Start: 07-02-2024 Registered Referred Dev Gutierrez MD [facility] Start: 05-21-2024 ambulatory Dev GUTIERREZ Facili ty:[facility] Start: 05-21-2024 Registered Referred Dev Gutierrez MD [facility] Start: 05-17-2024 ambulatory Out of Town Doctor Faci lity:[facility] Start: 05-17-2024 Registered Referred [facility] Start: 05-04-2024 End: 05-04-[address] Rachele Velasquez MD -Radiology, [place] Work Phone: Start: 05-04-2024 End: 05-04-2024 ambulatory Out of Town Doctor Facility:[facility] Start: 04-23-2024 End: 04-23-2024 Departed Referred Dev [facility] Start: 04-23-2024 End: 04-23-2024 ambulatory Dev GUTIERREZ Facility:[facility] Start: 04-06-2024 ambulatory Out of Town Doctor Faci lity:[facility] Start: 03-20-2024 End: 03-20-2024 ambulatory Dev GUTIERREZ Facility:[facility] Start: 03-09-2024 End: 03-09-2024 ambulatory Dev GUTIERREZ Facility:[facility] Start: 03-08-2024 End: 03-08-2024 ambulatory Dev GUTIERREZ Facility:[facility] Start: 03-07-2024 End: 03-07-2024 Telephone encounter Lev Li MD Work Phone: [facility] Start: 03-07-2024 End: 03-07-2024 ambulatory Dev Depmegano OLS Facility:[facility] Start: 03-06-2024 End: 03-06-2024 ambulatory Dev Deperro OLS Facility:[facility] Start: 02-27-2024 End: 02-27-2024 ambulatory Dev Deperro OLS Facility:[facility] Start: 01-23-2024 ambulatory Dev Depmegano OLS Facili ty:[facility] Start: 01-18-2024 ambulatory Dev Deperro OLS Facili ty:[facility] Start: 01-17-2024 ambulatory Dev Deperro OLS Facili ty:[facility] Start: 12-20-2023 End: 12-20-2023 ambulatory Dev Deperro OLS Facility:[facility] Start: 12-05-2023 End: 12-05-2023 ambulatory Dev Depmegano OLS Facility:[facility] Procedures Date Procedure Procedure Detail Performing [...] polysaccharide vaccine, 23 valent Out Town Doctor [facility] 02-12-2015 Influenza virus vaccine Out Town Doc tor [facility] Payers Date Payer Category Payer Medicare [id number] 2023 Medicare [id number] 2023 Self-pay 2023 Unknown [id number] 2014 Private Health Insurance [employer] RAYMUNDO MEB JSCZR [id number] 1997 Medicare MEDICARE [id number] Medicare [employer] MEDICARE PPO [id number] Unknown [id number] 2.16.840.1.277875.3.579.2. 462 Unknown [id number] 2.16840.1.317289.3.579.2. 462 Unknown [id number] 2.16.840.1.167992.3.579.2. 462 Unknown [id number] 2.16.840.1.830572.3.579.2. 462 Unknown [id number] 2.16.840.1.086612.3.579.2. 462 Unknown [id number] 2.16.840.1.315025.3.579.2. 462 Unknown [id number] 2.16.840.1.775156.3.579.2. 462 Unknown [id number] 2.16.840.1.526387.3.579.2. 462 Unknown [id number] 2.16.840.1.739234.3.579.2. 462 Unknown [id number] 2.16.840.1.303522.3.579.2. 462 Unknown [id number] 2.16.840.1.785704.3.579.2. 462 Unknown [id number] 2.16.840.1.734115.3.579.2. 462 Unknown [id number] 2.16.840.1.869406.3.579.2. 462 Unknown [id number] 2.16.840.1.843182.3.579.2. 462 Unknown [id number] 2.16840.1.123115.3.579.2. 462 Unknown [id number] 2.16840.1.739161.3.579.2. 462 Unknown [id number] 2.840.1.386600.3.579.2. 462 Unknown [id number] 2.840.1.518602.3.579.2. 462 Unknown [id number] 2.840.1.432846.3.579.2. 462 Unknown [id number] 2.840.1.401020.3.579.2. 462 Unknown [id number] 2.840.1.149920.3.579.2. 462 Unknown [id number] 2.840.1.126611.3.579.2. 462 Unknown [id number] 2.840.1.381657.3.579.2. 462 Unknown [id number] 2.840.1.385161.3.579.2. 462 Unknown [id number] 2.840.1.520821.3.579.2. 462 Unknown [id number] 2.840.1.123821.3.579.2. 462 Unknown [id number] 2.840.1.538920.3.579.2. 462 Social History Date Type Detail Facility Tobacco smoking stat [facility] Tobacco smoking consumption unknown [facility] Start: 1940 Sex assigned at Not on file [facility] Gender identity Not on file [facility] are Start: 04-22-2015 Tobacco smoking stat us [facility] Never smoked tobacco (finding) [facility] Start: 04-06-2015 None None [facility] Start: 04-06-2015 Spouse/ Significant Other Spouse/ Significant Other [facility] Start: 08-16-2024 End: 08-30-2024 Sex Female (finding) [facility] Start: 1940 Sex Assigned At Female [facility] Telephone encounter Note 03-07-2024 Telephone Encounter - Анна Batista - 03/07/2024 2:04 PM EDT Note Date & Type Note Facility 03-07-2024 Telephone encount er Note Recd referral from [facility] to schedule a new pt appt, when I called the facility today-03/07/24- I was informed by the knitted garment finisher that they had already made her an appt closer to their facility and to disregard this referral [facility] Note 03-07-2024 Telephone Encounter - Анна Batista - 03/07/2024 2:04 PM EDT Note Date & Type Note Facility 03-07-2024 Miscellaneous Notes Formattin g of this note might be different from the original. Recd referral from [facility] to schedule a new pt appt, when I called the facility today-03/07/24- I was informed by the knitted garment finisher that they had already made her an appt closer to their facility and to disregard this referral documented in this encounter [facility] Evaluation note Note Date & Type Note Facility Evaluation note No assessment information availa ble [facility] Work Phone: Reason for referral (narrative) Note Date & Type Note Facility Reason for referral (narrative) No reason for referral information available [facility] Work Phone: Chief Complaint and Reason for Visit Chief Complaint Admit Date LABWORK April 23, 2024 5 :00am [facility] May 04, 2024 3:07pm [facility] May 17, 2024 9:42pm LABWORK May 21, 2024 5: 00am LABWORK July 02, 2024 5:00am LABWORK July 06, 2024 5:00am LABWORK July 11, 2024 5:00am [facility] July 11 1:00pm [facility] July 24, 2024 1 :00am Chief Complaint Admit Date LABWORK April 23, 2024 5 :00am [facility] May 04, 2024 3:07pm [facility] May 17, 2024 9:42pm LABWORK May 21, 2024 5: 00am LABWORK July 02, 2024 5:00am LABWORK July 06, 2024 5:00am LABWORK July 11, 2024 5:00am [facility] July 11 1:00pm [facility] July 24, 2024 1 :00am [facility] July 30, 2024 5 :00am Chief Complaint Admit Date [facility] May 04, 2024 3:07pm [facility] May 17, 2024 9:42pm LABWORK May 21, 2024 5: 00am LABWORK July 02, 2024 5:00am LABWORK July 06, 2024 5:00am LABWORK July 11, 2024 5:00am [facility] July 11 1:00pm [facility] July 24, 2024 1 :00am [facility] July 30, 2024 5 :00am LABWORK August 13, 2024 5:0 0am Chief Complaint Admit Date LABWORK July 02, 2024 5:00am LABWORK July 06, 2024 5:00am LABWORK July 11, 2024 5:00am [facility] July 11 1:00pm [facility] July 24, 2024 1 :00am [facility] July 30, 2024 5 :00am LABWORK August 13, 2024 5:0 0am [facility] September 03, 2024 5 :00am Chief Complaint Admit Date LABWORK July 02, 2024 5:00am LABWORK July 06, 2024 5:00am LABWORK July 11, 2024 5:00am [facility] July 11 1:00pm [facility] July 24, 2024 1 :00am [facility] July 30, 2024 5 :00am LABWORK August 13, 2024 5:0 0am [facility] September 03, 2024 5 :00am LABWORK September 24, 2024 5:00a m Chief Complaint Admit Date LABWORK July 02, 2024 5:00am LABWORK July 06, 2024 5:00am LABWORK July 11, 2024 5:00am [facility] July 11 1:00pm [facility] July 24, 2024 1 :00am [facility] July 30, 2024 5 :00am LABWORK August 13, 2024 5:0 0am [facility] September 03, 2024 5 :00am [facility] September 11, 2024 4 :00am [facility] September 17, 2024 5:00 am [...] Care Teams (unrecognized sec tion and content) Technical Account Executive Relationship Specialty Start Date End Date Dev Gutierrez Sr., MD [address] [place] [address] [phone] PCP - General Internal Medicine 03/06/24 Team Status: Active Member Role Status Dates [facility] Family Provider Active Out of [facility] Primary Care Provider Active Team Status: Inactive Member Role Status Dates Out of [facility] Primary Care Provider Active Start: April 23, 2024 End: April 23, 2024 Dev Brenda GUTIERREZ MD Attending Provider Active S tart: April 23, 2024 End: April 23, 2024 Team Status: Inactive Member Role Status Dates Out of [facility] Primary Care Provider Active Start: May 04, 2024 End: May 04, 2024 Dr. Rachele Velasquez MD Attending Provider Active Start: May 04, 2024 End: May 04, 2024 Dr. Rachele Velasquez MD Referring Provider Active Start: May 04, 2024 End: May 04, 2024 Team Status: Active Member Role Status Dates Out of [facility] Primary Care Provider Active Start: May 17, 2024 Dev GUTIERREZ MD Attending Provider Active S tart: May 17, 2024 Dev GUTIERREZ MD Referring Provider Active S tart: May 17, 2024 Team Status: Active Member Role Status Dates Out of [facility] Primary Care Provider Active Start: May 21, 2024 Dev GUTIERREZ MD Attending Provider Active S tart: May 21, 2024 Team Status: Active Member Role Status Dates Out of [facility] Primary Care Provider Active Start: July 02, 2024 Dev GUTIERREZ MD Attending Provider Active S tart: July 02, 2024 Team Status: Active Member Role Status Dates Out of [facility] Primary Care Provider Active Start: July 06, 2024 Dev GUTIERREZ MD Attending Provider Active S tart: July 06, 2024 Team Status: Active Member Role Status Dates Out of [facility] Primary Care Provider Active Start: July 11, 2024 Dev GUTIERREZ MD Attending Provider Active S tart: July 11, 2024 Team Status: Inactive Member Role Status Dates Out of [facility] Primary Care Provider Active Start: July 24, 2024 End: July 24, 2024 Dev GUTIERREZ MD Attending Provider Active S tart: July 24, 2024 End: July 24, 2024 Team Status: Active Member Role Status Dates Out of [facility] Primary Care Provider Active Start: July 30, 2024 Dev GUTIERREZ MD Attending Provider Active S tart: July 30, 2024 Team Status: Active Member Role Status Dates Out of [facility] Primary Care Provider Active Start: August 13, 2024 Jack GUTIERREZ Attending Provider Active Star t: August 13, 2024 Team Status: Inactive Member Role Status Dates Out of [facility] Primary Care Provider Active Start: July 11, [...] Inactive Member Role Status Dates Out of [facility] Primary Care Provider Active Start: August 13, 2024 End: August 13, 2024 Jack GUTIERREZ Attending Provider Active Star t: August 13, 2024 End: August 13, 2024 Team Status: Inactive Member Role Status Dates Out of [facility] Primary Care Provider Active Start: September 03, 2024 End: September 03, 2024 Dev GUTIERREZ MD Attending Provider Active S tart: September 03, 2024 End: September 03, 2024 Team Status: Active Member Role Status Dates Out of [facility] Primary Care Provider Active Start: September 11, 2024 Dev GUTIERREZ MD Attending Provider Active S tart: September 11, 2024 Team Status: Active Member Role Status Dates Out of [facility] Primary Care Provider Active Start: September 17, 2024 Dev GUTIERREZ MD Attending Provider Active S tart: September 17, 2024 Team Status: Active Member Role Status Dates Out of [facility] Primary Care Provider Active Start: September 24, 2024 Dev GUTIERREZ MD Attending Provider Active S tart: September 24, 2024 Team Status: Inactive Member Role Status Dates Out of [facility] Primary Care Provider Active Start: September 24, 2024 End: September 24, 2024 Dev GUTIERREZ MD Attending Provider Active S tart: September 24, 2024 End: September 24, 2024 Team Status: Inactive Member Role Status Dates Out of [facility] Primary Care Provider Active Start: September 11, 2024 End: September 11, 2024 Dev GUTIERREZ MD Attending Provider Active S tart: September 11, 2024 End: September 11, 2024 Dev GUTIERREZ MD Referring Provider Active S tart: September 11, 2024 End: September 11, 2024 Team Status: Inactive Member Role Status Dates Out of [facility] Primary Care Provider Active Start: September 17, [...] section and content) DATE CREATED AUTHOR 10/18/[address] [facility] FOR RECORDS PERTAINING TO PATIENTS WHO [...] BE BASED ON THE PRIMARY CLINICAL RECORDS. [employer] provides no warranty or guarantee of the accuracy or completeness of information in this document.
[2024-11-05 08:57] LABS: Hematocrit 30.7 % (37-47); Hemoglobin 10.1 g/dL (12.0-15.0); Mean Corp Hgb Conc 32.9 g/dL (32-36); Mean Corpuscular Hgb 31.6 pg (27.0-32.0); Mean Corpuscular Volume 95.9 fL (81-99); Mean Platelet Vol. 9.8 fl (6.2-12.0); Platelet Count 137 K/mm3 (150-450); RBC Distribution Width CV 13.6 % (11.6-14.6); RBC Distribution Width SD 48.4 fl (35.1-43.9); White Blood Count 4.5 K/mm3 (4.4-11.0)
[2024-11-05 09:29] LABS: ALB/GLOB Ratio 1.9 RATIO (0.9-2.4); AST(SGOT) 24 U/L (<=31); Alanine Aminotransfer ALT/SGPT 15 U/L (<=34); Albumin, Serum 3.9 g/dL (3.4-4.8); Alkaline Phosphatase 72 U/L (35-104); Anion Gap 10 (5-15); BUN 23 mg/dL (4-19); BUN/Creat Ratio 22.6 RATIO (10-20); Calcium,Total 9.4 mg/dL (7.6-11.0); Carbon Dioxide 23.5 mmol/L (21.0-32.0); Chloride 109 mmol/L (98-108); EST Glomerular Filtration Rate 56 (>60); Globulin 2.1 g/dL (2.2-4.2); Glucose 100 mg/dL (70-99); Sodium Level 143 mmol/L (133-145); Total Bilirubin 1.06 mg/dL (0.00-1.30)
== END ==
LOC: OLS.ACH 05:00
PROVIDERS: Visit Provider Internal Medicine
DX: E03.9 Hypothyroidism, unspecified (principal)
CPT/HCPCS: 36415; 80053; 84443; 85027

== ENCOUNTER → 2024-11-27 05:00 | Outpatient (REF) | payer MEDICARE, MEDICAID, SELFPAY ==
--- OUTSIDE RECORDS SUMMARY | 2024-11-27 03:52 | XMS RPT_ITS | CCD ---
Author Organization [facility] Care Team Providers Care Preparation Center Coordinator Name Role Phone Brenda Hardy MD, Dev Primary Care Provider [facility], Out of Primary Care Provider Johnny Gutierrez MD, Dev Attending Provider Valeria Velasquez MD, Dr. Jeffrey Attending Provider Dr. Rachele Velasquez MD Referring Provider Brenda BALDWIN, Dev Referring Provider Unavailable Jack Fletcher Attending Provider Unavailabl e [facility], Out of Primary Care Provider Johnny Gutierrez MD, Dev Attending Provider Unavailable [facility], Out of Primary Care Provider Johnny Gutierrez MD, Dev Attending Provider Unavailable Brenda BALDWIN, Dev Referring Provider Unavailable [facility], Out of Primary Care Unavailable Rachele Velasquez Referring Unavailable Rachele Velasquez Attending Unavailable Dev Rose Attending Unavailable [facility], Out of Primary Care Unavailable Danielle Rosen Attending Unavailable [facility], Out of Primary [...] Attending Unavailable Deperro OLS, Dev Referring Unavailable [facility], Out of Primary Care Unavailable Deperro OLS, Dev Attending Unavailable [facility], Out of Primary Care Unavailable Deperro OLS, Dev Attending Unavailable Aamir GUTIERREZ Jack Attending Unavailable [facility], Out of Primary Care Unavailable [facility], Out of Primary Care Unavailable Deperro OLS, Dev Attending Unavailable Deperro OLS, Dev Attending Unavailable [facility], Out of Primary Care Unavailable Deperro OLS, Dev Referring Unavailable [facility], Out of Primary Care Unavailable [facility] Attending Johnny montiel Deperro OLS, Dev Attending Unavailable Town Doctor, Out of Primary Care Unavailable [facility], Out of Primary Care Unavailable Deperro OLS, Dev Attending Unavailable [facility], Out of Primary Care Unavailable Deperro OLS, Dev Attending Unavailable Deperro OLS, Dev Referring Unavailable [facility], Out of [...] Care Unavailable Deperro OLS, Dev Attending Unavailable Allergies Allergy Classification Reported Allergen(s) Allergy Type Date of Onset Reaction(s) Facility (9 sources) Cephalexin Drug Allergy 05-17-2015 Rash [facility] (1 source) Cephalexin Drug Allergy 05-17-2015 [facility] Repository Medications Current Medications Medication Drug Class(es) [...] Active 30 mg PO TWICE A DAY 60 May 20, 2015 1:00am Start: 04-22-2015 Morphine [...] D2) (Vitamin D2) 50,000 UNIT capsule Discontinued [id number] U PO TU April 22, 2015 1:53pm [...] Test Name Value Interpretation Reference Range Facility CBC-Complete Blood Cnt No Di ffon 11-05-2024 Erythrocyte distribution width (RBC) [Ratio] 13.6 % Normal 11.6-14.6 [facility] Comment on above: Order Comment: 209-1 Performed By: #### L 100.0500, L500.2500 #### [facility] [address] [place], [address] Hematocrit (Bld) [Volume fraction] 30.7 % Low 37-47 [facility] Comment on above: Order Comment: - Performed By: #### L 100.0500, L500.2500 #### [facility] [address] [place], [address] Hemoglobin (Bld) [Mass/Vol] 10.1 g/dL Low 12.0-15.0 [facility] Comment on above: Order Comment: - Performed By: #### L 100.0500, L500.2500 #### [facility] [address] [place], [address] MCH (RBC) [Entitic mass] 31.6 pg Normal 27.0-32.0 [facility] Comment on above: Order Comment: Performed By: #### L 100.0500, L500.2500 #### [facility] [address] [place], [address] MCHC (RBC) [Mass/Vol] 32.9 g/dL Normal 32-36 [facility] Comment on above: Order Comment: Performed By: #### L 100.0500, L500.2500 #### [facility] [address] [place], [address] MCV (RBC) [Entitic vol] 95.9 fL Normal 81-99 [facility] Comment on above: Order Comment: Performed By: #### L 100.0500, L500.2500 #### [facility] [address] [place], [address] Platelet mean volume (Bld) [Entitic vol] 9.8 fL Normal 6.2-12.0 [facility] Comment on above: Order Comment: - Performed By: #### L 100.0500, L500.2500 #### [facility] [address] [place], [address] Platelets (Bld) [#/Vol] 137 10*3/uL Low 150-450 [facility] Comment on above: Order Comment: - Performed By: #### L 100.0500, L500.2500 #### [facility] [address] [place], [address] RBC (Bld) [#/Vol] 3.20 10*6/uL Low 4.2-5.4 [facility] Comment on above: Order Comment: - Performed By: #### L 100.0500, L500.2500 #### [facility] [address] [place], [address] RDW SD 48.4 fl High 35.1-43.9 [facility] Comment on above: Order Comment: - Performed By: #### L 100.0500, L500.2500 #### [facility] [address] [place], [address] WBC (Bld) [#/Vol] 4.5 10*3/uL Normal 4.4-11.[address] [facility] Comment on above: Order Comment: Performed By: #### L 100.0500, L500.2500 #### [facility] [address] [place], [address] Comprehensive Metabolic Prof ilon 11-05-2024 Albumin [Mass/Vol] 3.9 g/dL Normal 3.4-4.[address] [facility] Comment on above: Order Comment: - Performed By: #### L 100.0500, L500.2500 #### [facility] [address] [place], [address] Albumin/Globulin [Mass ratio] 1.9 {ratio} Normal 0.9-2.4 [facility] Comment on above: Order Comment: - Performed By: #### L 100.0500, L500.2500 #### [facility] [address] [place], [address] ALK PHOS 72 U/L Normal 35-104 [facility] Comment on above: Order Comment: - Performed By: #### L 100.0500, L500.2500 #### [facility] [address] [place], [address] ALT [Catalytic activity/Vol] 15 U/L Normal <=34 [facility] Comment on above: Order Comment: - Performed By: #### L 100.0500, L500.2500 #### [facility] [address] [place], [address] AST [Catalytic activity/Vol] 24 U/L Normal <=31 [facility] Comment on above: Order Comment: - Performed By: #### L 100.0500, L500.2500 #### [facility] [address] [place], [address] Bilirubin [Mass/Vol] 1.06 mg/dL Normal 0.00-1.30 [facility] Comment on above: Order Comment: - Performed By: #### L 100.0500, L500.2500 #### [facility] [address] [place], [address] BUN/CRE 22.6 RATIO High 10-20 [facility] Comment on above: Order Comment: - Performed By: #### L 100.0500, L500.2500 #### [facility] [address] [place], [address] Calcium [Mass/Vol] 9.4 mg/dL Normal 7.6-11.[address] [facility] Comment on above: Order Comment: - Performed By: #### L 100.0500, L500.2500 #### [facility] [address] [place], [address] Chloride [Moles/Vol] 109 mmol/L High 98-108 [facility] Comment on above: Order Comment: Performed By: #### L 100.0500, L500.2500 #### [facility] [address] [place], [address] CO2 [Moles/Vol] 23.5 mmol/L Normal 21.0-32.0 [facility] Comment on above: Order Comment: Performed By: #### L 100.0500, L500.2500 #### [facility] [address] [place], [address] Creatinine [Mass/Vol] 1.00 mg/dL Normal 0.70-1.20 [facility] Comment on above: Order Comment: Performed By: #### L 100.0500, L500.2500 #### [facility] [address] [place], [address] GAP 10 Normal 5-15 [facility] Comment on above: Order Comment: Performed By: #### L 100.0500, L500.2500 #### [facility] [address] [place], [address] GFR/1.73 sq M.predicted among non-blacks MDRD (S/P/Bld) [Vol rate/Area] 56 mL/min/{1.73_m2} Low >60 [facility] Comment on above: Order Comment: Result Comment: mL/m in/1.73m2 CKD-EPI Creatinine Equation (2020) Performed By: #### L 100.0500, L500.2500 #### [facility] [address] [place], [address] Globulin (S) [Mass/Vol] 2.1 g/dL Low 2.2-4.2 [facility] Comment on above: Order Comment: Performed By: #### L 100.0500, L500.2500 #### [facility] [address] [place], [address] Glucose [Mass/Vol] 100 mg/dL High 70-[address] [facility] Comment on above: Order Comment: - Performed By: #### L 100.0500, L500.2500 #### [facility] [address] [place], [address] Potassium [Moles/Vol] 4.0 mmol/L Normal 3.3-5.1 [facility] Comment on above: Order Comment: - Performed By: #### L 100.0500, L500.2500 #### [facility] [address] [place], [address] Sodium [Moles/Vol] 143 mmol/L Normal 133-[address] [facility] Comment on above: Order Comment: - Performed By: #### L 100.0500, L500.2500 #### [facility] [address] [place], [address] T PROT 6.0 g/dL Normal 5.9-8.4 [facility] Comment on above: Order Comment: - Performed By: #### L 100.0500, L500.2500 #### [facility] [address] [place], [address] Urea nitrogen [Mass/Vol] 23 mg/dL High 4-19 [facility] Comment on above: Order Comment: - Performed By: #### L 100.0500, L500.2500 #### [facility] [address] [place], [address] Thyroid Stim Hormone (TSH)on 11-05-2024 TSH 1.160 uIU/mL Normal 0.300-4.200 [facility] Comment on above: Order Comment: - Performed By: #### L 100.0500, L500.2500 #### [facility] [address] [place], [address] TSH DL <= 0.005 mIU/L QnOrde red By: Dev Gutierrez on 09-24-2024 TSH Qn 6.110 uIU/mL High 0.300-4.200 [facility] Thyroid Stim Hormone (TSH)on 09-24-2024 TSH 6.110 uIU/mL High 0.300-4.200 [facility] Comment on above: Order Comment: Performed By: #### L 500.4050, L501.9520, L100.0500 #### [facility] [address] [place], [place], [id number] Urine Cultureon 09-19-2024 URC Presumptive E. coli Hanalei Count >100,000 Presumptive E. coli: REACTION Ampicillin [...] TMP SMX Islt PARMINDER <=20 S Normal [facility] Comment on above: Performed By: #### M 100.2200, L400.0001 #### [facility] [address] [facility] [place], [id number] Anion gap in Serum or Plasma Ordered By: Dev Gutierrez on 09-17-2024 Anion gap [Moles/Vol] 10 mmol/L -15 [facility] BUN/creatinine ratioOrdered By: Dev Gutierrez on 09-17-2024 Urea nitrogen/Creatinine [Mass ratio] 22.4 mg/mg High - [facility] Basic Metabolic Profile (BMP )on 09-17-2024 BUN/CRE 22.4 RATIO High - [facility] Comment on above: Order Comment: Performed By: #### L 100.0500, L500.2500 #### [facility] [address] [place], [address] Calcium [Mass/Vol] 9.6 mg/dL Normal 7.6-11.[address] [facility] Comment on above: Order Comment: Performed By: #### L 100.0500, L500.2500 #### [facility] [address] [place], [address] Chloride [Moles/Vol] 107 mmol/L Normal 98-108 [facility] Comment on above: Order Comment: Performed By: #### L 100.0500, L500.2500 #### [facility] [address] [place], [address] CO2 [Moles/Vol] 24.3 mmol/L Normal 21.0-32.0 [facility] Comment on above: Order Comment: Performed By: #### L 100.0500, L500.2500 #### [facility] [address] [place], [address] Creatinine [Mass/Vol] 1.14 mg/dL Normal 0.70-1.20 [facility] Comment on above: Order Comment: Performed By: #### L 100.0500, L500.2500 #### [facility] [address] [place], [address] GAP 10 Normal 5-15 [facility] Comment on above: Order Comment: Performed By: #### L 100.0500, L500.2500 #### [facility] [address] [place], [address] GFR/1.73 sq M.predicted among non-blacks MDRD (S/P/Bld) [Vol rate/Area] 48 mL/min/{1.73_m2} Low >60 [facility] Comment on above: Order Comment: Result Comment: mL/m in/1.73m2 CKD-EPI Creatinine Equation (2020) Performed By: #### L 100.0500, L500.2500 #### [facility] [address] [place], [address] Glucose [Mass/Vol] 98 mg/dL Normal 70-[address] [facility] Comment on above: Order Comment: Performed By: #### L 100.0500, L500.2500 #### [facility] [address] [place], [address] Potassium [Moles/Vol] 4.3 mmol/L Normal 3.3-5.1 [facility] Comment on above: Order Comment: Performed By: #### L 100.0500, L500.2500 #### [facility] [address] [place], [address] Sodium [Moles/Vol] 141 mmol/L Normal 133-[address] [facility] Comment on above: Order Comment: Performed By: #### L 100.0500, L500.2500 #### [facility] [address] [place], [address] Urea nitrogen [Mass/Vol] 26 mg/dL High 4-19 [facility] Comment on above: Order Comment: Performed By: #### L 100.0500, L500.2500 #### [facility] [address] [place], [address] CBC-Complete Blood Cnt No Di ffon 09-17-2024 Erythrocyte distribution width (RBC) [Ratio] 13.2 % Normal 11.6-14.6 [facility] Comment on above: Order Comment: Performed By: #### L 100.0500, L500.2500 #### [facility] [address] [place], [address] Hematocrit (Bld) [Volume fraction] 32.3 % Low 37-47 [facility] Comment on above: Order Comment: Performed By: #### L 100.0500, L500.2500 #### [facility] [address] [place], [address] Hemoglobin (Bld) [Mass/Vol] 10.7 g/dL Low 12.0-15.0 [facility] Comment on above: Order Comment: Performed By: #### L 100.0500, L500.2500 #### [facility] [address] [place], [address] MCH (RBC) [Entitic mass] 32.4 pg High 27.0-32.0 [facility] Comment on above: Order Comment: Performed By: #### L 100.0500, L500.2500 #### [facility] [address] [place], [address] MCHC (RBC) [Mass/Vol] 33.1 g/dL Normal 32-36 [facility] Comment on above: Order Comment: Performed By: #### L 100.0500, L500.2500 #### [facility] [address] [place], [address] MCV (RBC) [Entitic vol] 97.9 fL Normal 81-99 [facility] Comment on above: Order Comment: Performed By: #### L 100.0500, L500.2500 #### [facility] [address] [place], [address] Platelet mean volume (Bld) [Entitic vol] 10.1 fL Normal 6.2-12.0 [facility] Comment on above: Order Comment: Performed By: #### L 100.0500, L500.2500 #### [facility] [address] [place], [address] Platelets (Bld) [#/Vol] 144 10*3/uL Low 150-450 [facility] Comment on above: Order Comment: Performed By: #### L 100.0500, L500.2500 #### [facility] [address] [place], [address] RBC (Bld) [#/Vol] 3.30 10*6/uL Low 4.2-5.4 [facility] Comment on above: Order Comment: Performed By: #### L 100.0500, L500.2500 #### [facility] [address] [place], [address] RDW SD 47.2 fl High 35.1-43.9 [facility] Comment on above: Order Comment: Performed By: #### L 100.0500, L500.2500 #### [facility] [address] [place], [address] WBC (Bld) [#/Vol] 5.1 10*3/uL Normal 4.4-11.[address] [facility] Comment on above: Order Comment: Performed By: #### L 100.0500, L500.2500 #### [facility] [address] [place], [address] Carbon dioxide, total [Moles /volume] in Central venous bloodOrdered By: Dev Gutierrez on 09-17-2024 CO2 [Moles/Vol] 24.3 mmol/L 21.0-32.0 [facility] Chloride assayOrdered By: Morris on 09-17-2024 Chloride [Moles/Vol] 107 mmol/L 98-108 [facility] Erythrocyte distribution wid th ratioOrdered By: Dev Gutierrez on 09-17-2024 Erythrocyte distribution width (RBC) [Ratio] 13.2 % 11.6-14.6 [facility] Erythrocyte distribution wid th standard deviationOrdered By: Dev Gutierrez on 09-17-2024 Erythrocyte distribution width (RBC) [Ratio] 47.2 fl High 35.1-43.9 [facility] Glomerular filtration rate ( GFR) estimation/1.73 sq m using serum, plasma, or whole bOrdered By: Dev Gutierrez on 09-17-2024 GFR/1.73 sq M.predicted among non-blacks MDRD (S/P/Bld) [Vol rate/Area] 48 mL/min/{1.73_m2} Low >60 [facility] Comment on above: mL/min/1.73m2 CKD-EP I Creatinine Equation (2020) Hematocrit Auto (Bld) [Volum e fraction]Ordered By: Dev Gutierrez on 09-17-2024 Hematocrit (Bld) [Volume fraction] 32.3 % Low 37-47 [facility] Hemoglobin measurementOrdere d By: Dev Gutierrez on 09-17-2024 Hemoglobin (Bld) [Mass/Vol] 10.7 g/dL Low 12.0-15.0 [facility] MCV (mean corpuscular volume ) determinationOrdered By: Dev Gutierrez on 09-17-2024 MCV (RBC) [Entitic vol] 97.9 fL 81-99 [facility] Mean corpuscular hemoglobin (MCH) determinationOrdered By: Dev Gutierrez on 09-17-2024 MCH (RBC) [Entitic mass] 32.4 pg High 27.0-32.0 [facility] Mean corpuscular hemoglobin concentration (MCHC) determinationOrdered By: Dev Gutierrez on 09-17-2024 MCHC (RBC) [Mass/Vol] 33.1 g/dL 32-36 [facility] Mean platelet volume determi nationOrdered By: Dev Gutierrez on 09-17-2024 Platelet mean volume (Bld) [Entitic vol] 10.1 fL 6.2-12.0 [facility] Platelet countOrdered By: Morris on 09-17-2024 Platelets (Bld) [#/Vol] 144 10*3/uL Low 150-450 [facility] Potassium measurement (mass/ volume)Ordered By: Dev Gutierrez on 09-17-2024 Potassium (Unsp spec) [Mass/Vol] 4.3 mmol/L 3.3-5.1 [facility] RBC Auto (Bld) [#/Vol]Ordere d By: Dev Gutierrez on 09-17-2024 RBC (Bld) [#/Vol] 3.30 10*6/uL Low 4.2-5.4 [facility] Serum creatinine measurement (mass/volume)Ordered By: Dev Gutierrez on 09-17-2024 Creatinine [Mass/Vol] 1.14 mg/dL 0.70-1.20 [facility] Serum glucose measurement (m ass/volume)Ordered By: Dev Gutierrez on 09-17-2024 Glucose [Mass/Vol] 98 mg/dL 70-[address] [facility] Serum or plasma calcium maude urement (mass/volume)Ordered By: Dev Gutierrez on 09-17-2024 Calcium [Mass/Vol] 9.6 mg/dL 7.6-11.[address] [facility] Serum or plasma urea nitroge n measurement (mass/volume)Ordered By: Dev Gutierrez on 09-17-2024 Urea nitrogen [Mass/Vol] 26 mg/dL High 4-19 [facility] Sodium levelOrdered By: Dev Gutierrez on 09-17-2024 Sodium [Moles/Vol] 141 mmol/L 133-[address] [facility] Urinalysis, Completeon 09-17 BACTERIA 1+ /hpf Normal None Seen [facility] Comment on above: Order Comment: Performed By: #### L 100.0500, L500.2500 #### [facility] [address] [place], [address] EPI,SQUAMOUS 0-5 SEEN Normal 5-10 [facility] Comment on above: Order Comment: Performed By: #### L 100.0500, L500.2500 #### [facility] [address] [place], [address] WBC 25-50 SEEN Normal 0-5 [facility] Comment on above: Order Comment: Performed By: #### L 100.0500, L500.2500 #### [facility] [address] [place], [address] Mucus Ql (Urine sed) 0 SEEN Normal [facility] Comment on above: Order Comment: Performed By: #### L 100.0500, L500.2500 #### [facility] [address] [place], [address] RBC 0 SEEN Normal 0-5 [facility] Comment on above: Order Comment: Performed By: #### L 100.0500, L500.2500 #### [facility] [address] [place], [address] White blood cell (WBC) count Ordered By: Dev Gutierrez on 09-17-2024 WBC (Bld) [#/Vol] 5.1 10*3/uL 4.4-11.[address] [facility] Bilirubin Test strip Ql (U)O rdered By: Dev Gutierrez on 09-16-2024 Bilirubin Ql (U) Negative Negative [facility] Ketones Test strip Ql (U)Ord ered By: Dev Gutierrez on 09-16-2024 Ketones Ql (U) Negative Negative [facility] Microscopic analysis of urin e for red blood cells (RBC)Ordered By: Dev Gutierrez on 09-16-2024 Microscopic analysis of urine for red blood cells (RBC) 0 SEEN /hpf 0-5 [facility] Mucus LM Ql (Urine sed)Order ed By: Dev Gutierrez on 09-16-2024 Mucus Ql (Urine sed) 0 SEEN /hpf [facility] Nitrite Test strip Ql (U)Ord ered By: Dev Gutierrez on 09-16-2024 Nitrite Ql (U) Positive High Negative [facility] Protein Test strip Ql (U)Ord ered By: Dev Gutierrez on 09-16-2024 Protein Ql (U) 15 mg/dl High Negative [facility] Squamous epithelial cells de tection in urine sediment by light microscopyOrdered By: eDv Gutierrez on 09-16-2024 Epithelial cells.squamous LM Ql (Urine sed) 0-5 SEEN /hpf 5-10 [facility] Urine clarityOrdered By: Danielle Gutierrez on 09-16-2024 Clarity (U) Clear Clear [facility] Urine color determinationOrd ered By: Dev Gutierrez on 09-16-2024 Color (U) Yellow Yellow [facility] Urine cultureOrdered By: Danielle Gutierrez on 09-16-2024 Bacteria identified Cx Nom (U) Presumptive E. coli Abnormal [facility] Urine glucose detectionOrder ed By: Dev Gutierrez on 09-16-2024 Glucose Ql (U) Normal mg/dl Normal [facility] Urine leukocyte esterase det ection by dipstickOrdered By: Dev Gutierrez on 09-16-2024 Leukocyte esterase Test strip Ql (U) 500 /ul High Negative [facility] Urine pHOrdered By: Dev rodriguez on 09-16-2024 pH (U) 6.0 [pH] 5.0 - 8.0 [facility] Urine sediment bacteria coun t by microscopy (number/high power field)Ordered By: Dev Gutierrez on 09-16-2024 Bacteria LM.HPF (Urine sed) [#/Area] 1 /[HPF] None Seen [facility] Urine specific gravity measu rementOrdered By: Dev Gutierrez on 09-16-2024 Specific gravity (U) [Rel density] 1.010 1.002-1.030 [facility] Urine urobilinogen measureme ntOrdered By: Dev Gutierrez on 09-16-2024 Urobilinogen Ql (U) Normal mg/dl Normal [facility] White blood cell countOrdere d By: Dev Gutierrez on 09-16-2024 White blood cell count 25-50 SEEN /hpf 0-5 [facility] Serum or plasma uric acid me asurement (mass/volume)Ordered By: Dev Gutierrez on 09-11-2024 Urate [Mass/Vol] 3.0 mg/dL 2.6-6.0 [facility] Comment on above: The drugs N-Acetylcy steine and Metamizole may falsely depress this assay. Uric Acidon 09-11-2024 URIC 3.0 mg/dL Normal 2.6-6.0 [facility] Comment on above: Order Comment: Result Comment: The drugs N-Acetylcysteine and Metamizole may falsely depress this assay. Performed By: #### L 500.4050, L501.9520, L100.0500 #### [facility] [address] [place], [address] Anion gap in Serum or Plasma Ordered By: Dev Gutierrez on 09-03-2024 Anion gap [Moles/Vol] 9 mmol/L - [facility] BUN/creatinine ratioOrdered By: Dev Gutierrez on 09-03-2024 Urea nitrogen/Creatinine [Mass ratio] 28.9 mg/mg High - [facility] Basic Metabolic Profile (BMP )on 09-03-2024 BUN/CRE 28.9 RATIO High - [facility] Comment on above: Order Comment: - Performed By: #### L 500.4050, L501.9520, L100.0500 #### [facility] [address] [place], [address] Calcium [Mass/Vol] 9.4 mg/dL Normal 7.6-11.[address] [facility] Comment on above: Order Comment: - Performed By: #### L 500.4050, L501.9520, L100.0500 #### [facility] [address] [place], [address] Chloride [Moles/Vol] 108 mmol/L Normal 98-108 [facility] Comment on above: Order Comment: - Performed By: #### L 500.4050, L501.9520, L100.0500 #### [facility] [address] [place], [address] CO2 [Moles/Vol] 24.7 mmol/L Normal 21.0-32.0 [facility] Comment on above: Order Comment: - Performed By: #### L 500.4050, L501.9520, L100.0500 #### [facility] [address] [place], [address] Creatinine [Mass/Vol] 1.08 mg/dL Normal 0.70-1.20 [facility] Comment on above: Order Comment: Performed By: #### L 500.4050, L501.9520, L100.0500 #### [facility] [address] [place], [address] GAP 9 Normal 5-15 [facility] Comment on above: Order Comment: Performed By: #### L 500.4050, L501.9520, L100.0500 #### [facility] [address] [place], [address] GFR/1.73 sq M.predicted among non-blacks MDRD (S/P/Bld) [Vol rate/Area] 51 mL/min/{1.73_m2} Low >60 [facility] Comment on above: Order Comment: Result Comment: mL/m in/1.73m2 CKD-EPI Creatinine Equation (2020) Performed By: #### L 500.4050, L501.9520, L100.0500 #### [facility] [address] [place], [address] Glucose [Mass/Vol] 109 mg/dL High 70-[address] [facility] Comment on above: Order Comment: Performed By: #### L 500.4050, L501.9520, L100.0500 #### [facility] [address] [place], [address] Potassium [Moles/Vol] 4.3 mmol/L Normal 3.3-5.1 [facility] Comment on above: Order Comment: Performed By: #### L 500.4050, L501.9520, L100.0500 #### [facility] [address] [place], [address] Sodium [Moles/Vol] 142 mmol/L Normal 133-[address] [facility] Comment on above: Order Comment: Performed By: #### L 500.4050, L501.9520, L100.0500 #### [facility] [address] [place], [address] Urea nitrogen [Mass/Vol] 31 mg/dL High 4-19 [facility] Comment on above: Order Comment: Performed By: #### L 500.4050, L501.9520, L100.0500 #### [facility] [address] [place], [address] CBC-Complete Blood Cnt No Di ffon 09-03-2024 Erythrocyte distribution width (RBC) [Ratio] 13.6 % Normal 11.6-14.6 [facility] Comment on above: Order Comment: Performed By: #### L 500.4050, L501.9520, L100.0500 #### [facility] [address] [place], [address] Hematocrit (Bld) [Volume fraction] 29.9 % Low 37-47 [facility] Comment on above: Order Comment: Performed By: #### L 500.4050, L501.9520, L100.0500 #### [facility] [address] [place], [address] Hemoglobin (Bld) [Mass/Vol] 9.5 g/dL Low 12.0-15.0 [facility] Comment on above: Order Comment: Performed By: #### L 500.4050, L501.9520, L100.0500 #### [facility] [address] [place], [address] MCH (RBC) [Entitic mass] 31.0 pg Normal 27.0-32.0 [facility] Comment on above: Order Comment: Performed By: #### L 500.4050, L501.9520, L100.0500 #### [facility] [address] [place], [address] MCHC (RBC) [Mass/Vol] 31.8 g/dL Low 32-36 [facility] Comment on above: Order Comment: - Performed By: #### L 500.4050, L501.9520, L100.0500 #### [facility] [address] [place], [address] MCV (RBC) [Entitic vol] 97.7 fL Normal 81-99 [facility] Comment on above: Order Comment: - Performed By: #### L 500.4050, L501.9520, L100.0500 #### [facility] [address] [place], [address] Platelet mean volume (Bld) [Entitic vol] 10.3 fL Normal 6.2-12.0 [facility] Comment on above: Order Comment: Performed By: #### L 500.4050, L501.9520, L100.0500 #### [facility] [address] [place], [address] Platelets (Bld) [#/Vol] 145 10*3/uL Low 150-450 [facility] Comment on above: Order Comment: Performed By: #### L 500.4050, L501.9520, L100.0500 #### [facility] [address] [place], [address] RBC (Bld) [#/Vol] 3.06 10*6/uL Low 4.2-5.4 [facility] Comment on above: Order Comment: Performed By: #### L 500.4050, L501.9520, L100.0500 #### [facility] [address] [place], [address] RDW SD 48.5 fl High 35.1-43.9 [facility] Comment on above: Order Comment: - Performed By: #### L 500.4050, L501.9520, L100.0500 #### [facility] [address] [place], [place], [address] WBC (Bld) [#/Vol] 5.0 10*3/uL Normal 4.4-11.[address] [facility] Comment on above: Order Comment: Performed By: #### L 500.4050, L501.9520, L100.0500 #### [facility] [address] [place], [address] Carbon dioxide, total [Moles /volume] in Central venous bloodOrdered By: Dev Gutierrez on 09-03-2024 CO2 [Moles/Vol] 24.7 mmol/L 21.0-32.0 [facility] Chloride assayOrdered By: Morris on 09-03-2024 Chloride [Moles/Vol] 108 mmol/L 98-108 [facility] Erythrocyte distribution wid th ratioOrdered By: Dev Gutierrez on 09-03-2024 Erythrocyte distribution width (RBC) [Ratio] 13.6 % 11.6-14.6 [facility] Erythrocyte distribution wid th standard deviationOrdered By: Dev Gutierrez on 09-03-2024 Erythrocyte distribution width (RBC) [Ratio] 48.5 fl High 35.1-43.9 [facility] Glomerular filtration rate ( GFR) estimation/1.73 sq m using serum, plasma, or whole bOrdered By: Dev Gutierrez on 09-03-2024 GFR/1.73 sq M.predicted among non-blacks MDRD (S/P/Bld) [Vol rate/Area] 51 mL/min/{1.73_m2} Low >60 [facility] Comment on above: mL/min/1.73m2 CKD-EP I Creatinine Equation (2020) Hematocrit Auto (Bld) [Volum e fraction]Ordered By: Dev Gutierrez on 09-03-2024 Hematocrit (Bld) [Volume fraction] 29.9 % Low 37-47 [facility] Hemoglobin measurementOrdere d By: Dev Gutierrez on 09-03-2024 Hemoglobin (Bld) [Mass/Vol] 9.5 g/dL Low 12.0-15.0 [facility] Influenza virus A and B and SARS-CoV-2 (COVID-19) and Respiratory syncytial virus RNAOrdered By: Dev Gutierrez on 09-03-2024 SARS-CoV-2 (COVID-19) RNA MARLO+probe Ql (Unsp spec) [facility] M100.678on 09-03-2024 M100.678 Pending SARS-CoV-2 (COVID 19) Negative INFLUENZA A Negative INFLUENZA B Negative RSV PCR Negative Normal [facility] Comment on above: Performed By: #### L 500.4050, L501.9520, L100.0500 #### [facility] [address] [place], [address] MCV (mean corpuscular volume ) determinationOrdered By: Dev Gutierrez on 09-03-2024 MCV (RBC) [Entitic vol] 97.7 fL 81-99 [facility] Mean corpuscular hemoglobin (MCH) determinationOrdered By: Dev Gutierrez on 09-03-2024 MCH (RBC) [Entitic mass] 31.0 pg 27.0-32.0 [facility] Mean corpuscular hemoglobin concentration (MCHC) determinationOrdered By: Dev Gutierrez on 09-03-2024 MCHC (RBC) [Mass/Vol] 31.8 g/dL Low 32-36 [facility] Mean platelet volume determi nationOrdered By: Dev Gutierrez on 09-03-2024 Platelet mean volume (Bld) [Entitic vol] 10.3 fL 6.2-12.0 [facility] Platelet countOrdered By: Morris on 09-03-2024 Platelets (Bld) [#/Vol] 145 10*3/uL Low 150-450 [facility] Potassium measurement (mass/ volume)Ordered By: Dev Gutierrez on 09-03-2024 Potassium (Unsp spec) [Mass/Vol] 4.3 mmol/L 3.3-5.1 [facility] RBC Auto (Bld) [#/Vol]Ordere d By: Dev Gutierrez on 09-03-2024 RBC (Bld) [#/Vol] 3.06 10*6/uL Low 4.2-5.4 [facility] Serum creatinine measurement (mass/volume)Ordered By: Dev Gutierrez on 09-03-2024 Creatinine [Mass/Vol] 1.08 mg/dL 0.70-1.20 [facility] Serum glucose measurement (m ass/volume)Ordered By: Dev Gutierrez on 09-03-2024 Glucose [Mass/Vol] 109 mg/dL High 70-[address] [facility] Serum or plasma calcium maude urement (mass/volume)Ordered By: Dev Gutierrez on 09-03-2024 Calcium [Mass/Vol] 9.4 mg/dL 7.6-11.[address] [facility] Serum or plasma urea nitroge n measurement (mass/volume)Ordered By: Dev Gutierrez on 09-03-2024 Urea nitrogen [Mass/Vol] 31 mg/dL High 4-19 [facility] Sodium levelOrdered By: Dev Gutierrez on 09-03-2024 Sodium [Moles/Vol] 142 mmol/L 133-[address] [facility] White blood cell (WBC) count Ordered By: Dev Gutierrez on 09-03-2024 WBC (Bld) [#/Vol] 5.0 10*3/uL 4.4-11.[address] [facility] Anion gap in Serum or Plasma Ordered By: Jack Rutledge on 08-13-2024 Anion gap [Moles/Vol] 11 mmol/L 5-15 [facility] BUN/creatinine ratioOrdered By: Jack Rutledge on 08-13-2024 Urea nitrogen/Creatinine [Mass ratio] 26.2 mg/mg High 10-20 [facility] Bilirubin, totalOrdered By: Jack Rutledge on 08-13-2024 Bilirubin [Mass/Vol] 1.12 mg/dL 0.00-1.30 [facility] CBC-Complete Blood Cnt No Di ffon 08-13-2024 Erythrocyte distribution width (RBC) [Ratio] 14.3 % Normal 11.6-14.6 [facility] Comment on above: Order Comment: [id number] Performed By: #### L 500.4050, L501.9520, L100.0500 #### [facility] [address] [place], [address] Hematocrit (Bld) [Volume fraction] 29.7 % Low 37-47 [facility] Comment on above: Order Comment: Performed By: #### L 500.4050, L501.9520, L100.0500 #### [facility] [address] [place], [address] Hemoglobin (Bld) [Mass/Vol] 9.9 g/dL Low 12.0-15.0 [facility] Comment on above: Order Comment: Performed By: #### L 500.4050, L501.9520, L100.0500 #### [facility] [address] [place], [address] MCH (RBC) [Entitic mass] 32.7 pg High 27.0-32.0 [facility] Comment on above: Order Comment: Performed By: #### L 500.4050, L501.9520, L100.0500 #### [facility] [address] [place], [address] MCHC (RBC) [Mass/Vol] 33.3 g/dL Normal 32-36 [facility] Comment on above: Order Comment: Performed By: #### L 500.4050, L501.9520, L100.0500 #### [facility] [address] [place], [address] MCV (RBC) [Entitic vol] 98.0 fL Normal 81-99 [facility] Comment on above: Order Comment: Performed By: #### L 500.4050, L501.9520, L100.0500 #### [facility] [address] [place], [address] Platelet mean volume (Bld) [Entitic vol] 10.0 fL Normal 6.2-12.0 [facility] Comment on above: Order Comment: Performed By: #### L 500.4050, L501.9520, L100.0500 #### [facility] [address] [place], [address] Platelets (Bld) [#/Vol] 149 10*3/uL Low 150-450 [facility] Comment on above: Order Comment: Performed By: #### L 500.4050, L501.9520, L100.0500 #### [facility] [address] [place], [address] RBC (Bld) [#/Vol] 3.03 10*6/uL Low 4.2-5.4 [facility] Comment on above: Order Comment: Performed By: #### L 500.4050, L501.9520, L100.0500 #### [facility] [address] [place], [address] RDW SD 50.4 fl High 35.1-43.9 [facility] Comment on above: Order Comment: Performed By: #### L 500.4050, L501.9520, L100.0500 #### [facility] [address] [place], [address] WBC (Bld) [#/Vol] 4.7 10*3/uL Normal 4.4-11.[address] [facility] Comment on above: Order Comment: Performed By: #### L 500.4050, L501.9520, L100.0500 #### [facility] [address] [place], [address] Carbon dioxide, total [Moles /volume] in Central venous bloodOrdered By: Jack Rutledge on 08-13-2024 CO2 [Moles/Vol] 22.4 mmol/L 21.0-32.0 [facility] Chloride assayOrdered By: Shauna Rutledge on 08-13-2024 Chloride [Moles/Vol] 107 mmol/L 98-108 [facility] Comprehensive Metabolic Prof ilon 08-13-2024 Albumin [Mass/Vol] 3.8 g/dL Normal 3.4-4.[address] [facility] Comment on above: Order Comment: Performed By: #### L 500.4050, L501.9520, L100.0500 #### [facility] [address] [place], [address] Albumin/Globulin [Mass ratio] 1.6 {ratio} Normal 0.9-2.4 [facility] Comment on above: Order Comment: Performed By: #### L 500.4050, L501.9520, L100.0500 #### [facility] [address] [place], [address] ALK PHOS 79 U/L Normal 35-104 [facility] Comment on above: Order Comment: Performed By: #### L 500.4050, [id number], L100.0500 #### [facility] [address] [place], [address] ALT [Catalytic activity/Vol] 18 U/L Normal <=34 [facility] Comment on above: Order Comment: Performed By: #### L 500.4050, L501.9520, L100.0500 #### [facility] [address] [place], [address] AST [Catalytic activity/Vol] 27 U/L Normal <=31 [facility] Comment on above: Order Comment: Performed By: #### L 500.4050, L501.9520, L100.0500 #### [facility] [address] [place], [address] Bilirubin [Mass/Vol] 1.12 mg/dL Normal 0.00-1.30 [facility] Comment on above: Order Comment: Performed By: #### L 500.4050, [id number], L100.0500 #### [facility] [address] [place], [address] BUN/CRE 26.2 RATIO High 10-20 [facility] Comment on above: Order Comment: - Performed By: #### L 500.4050, [id number], L100.0500 #### [facility] [address] [place], [address] Calcium [Mass/Vol] 9.3 mg/dL Normal 7.6-11.[address] [facility] Comment on above: Order Comment: - Performed By: #### L 500.4050, [id number], L100.0500 #### [facility] [address] [place], [address] Chloride [Moles/Vol] 107 mmol/L Normal 98-108 [facility] Comment on above: Order Comment: - Performed By: #### L 500.4050, [id number], L100.0500 #### [facility] [address] [place], [address] CO2 [Moles/Vol] 22.4 mmol/L Normal 21.0-32.0 [facility] Comment on above: Order Comment: - Performed By: #### L 500.4050, [id number], L100.0500 #### [facility] [address] [place], [address] Creatinine [Mass/Vol] 1.06 mg/dL Normal 0.70-1.20 [facility] Comment on above: Order Comment: - Performed By: #### L 500.4050, L501.9520, L100.0500 #### [facility] [address] [place], [address] GAP 11 Normal 5-15 [facility] Comment on above: Order Comment: Performed By: #### L 500.4050, [id number], L100.0500 #### [facility] [address] [place], [address] GFR/1.73 sq M.predicted among non-blacks MDRD (S/P/Bld) [Vol rate/Area] 52 mL/min/{1.73_m2} Low >60 [facility] Comment on above: Order Comment: Result Comment: mL/m in/1.73m2 CKD-EPI Creatinine Equation (2020) Performed By: #### L 500.4050, L501.9520, L100.0500 #### [facility] [address] [place], [address] Globulin (S) [Mass/Vol] 2.3 g/dL Normal 2.2-4.2 [facility] Comment on above: Order Comment: Performed By: #### L 500.4050, L501.9520, L100.0500 #### [facility] [address] [place], [address] Glucose [Mass/Vol] 94 mg/dL Normal 70-[address] [facility] Comment on above: Order Comment: Performed By: #### L 500.4050, L501.9520, L100.0500 #### [facility] [address] [place], [address] Potassium [Moles/Vol] 4.1 mmol/L Normal 3.3-5.1 [facility] Comment on above: Order Comment: Performed By: #### L 500.4050, L501.9520, L100.0500 #### [facility] [address] [place], [address] Sodium [Moles/Vol] 140 mmol/L Normal 133-[address] [facility] Comment on above: Order Comment: Performed By: #### L 500.4050, L501.9520, L100.0500 #### [facility] [address] [place], [address] T PROT 6.1 g/dL Normal 5.9-8.4 [facility] Comment on above: Order Comment: Performed By: #### L 500.4050, [id number], L100.0500 #### [facility] [address] [place], [address] Urea nitrogen [Mass/Vol] 28 mg/dL High 4-19 [facility] Comment on above: Order Comment: Performed By: #### L 500.4050, L501.9520, L100.0500 #### [facility] [address] [place], [address] Erythrocyte distribution wid th (RBC) [Ratio]Ordered By: Jack Rutledge on 08-13-2024 Erythrocyte distribution width (RBC) [Entitic vol] 50.4 fL High 35.1-43.9 [facility] Erythrocyte distribution wid th ratioOrdered By: Jack Rutledge on 08-13-2024 Erythrocyte distribution width (RBC) [Ratio] 14.3 % 11.6-14.6 [facility] Erythrocyte distribution wid th standard deviationOrdered By: Jack Rutledge on 08-13-2024 Erythrocyte distribution width (RBC) [Ratio] 50.4 fl High 35.1-43.9 [facility] GFR/1.73 sq M.predicted tyler g non-blacks MDRD (S/P/Bld) [Vol rate/Area]Ordered By: Jack Rutledge on 08-13-2024 Estimated GFR (MDRD) Non-Af Amer 52 Low >60 [facility] Comment on above: mL/min/1.73m2 CKD-EP I Creatinine Equation (2020) Glomerular filtration rate ( GFR) estimation/1.73 sq m using serum, plasma, or whole bOrdered By: Jack Rutledge on 08-13-2024 GFR/1.73 sq M.predicted among non-blacks MDRD (S/P/Bld) [Vol rate/Area] 52 mL/min/{1.73_m2} Low >60 [facility] Comment on above: mL/min/1.73m2 CKD-EP I Creatinine Equation (2020) Hematocrit Auto (Bld) [Volum e fraction]Ordered By: Jack Rutledge on 08-13-2024 Hematocrit (Bld) [Volume fraction] 29.7 % Low 37-47 [facility] Hemoglobin measurementOrdere d By: Jcak Rutledge on 08-13-2024 Hemoglobin (Bld) [Mass/Vol] 9.9 g/dL Low 12.0-15.0 [facility] L503.0106on 08-13-2024 Cobalamin (Vitamin B12) [Mass/Vol] 744 pg/mL Normal 180-914 [facility] Comment on above: Order Comment: Performed By: #### L 100.0500 #### [facility] [address] [place] [address], [address] Laboratory - Chemistry and C hemistry - challengeOrdered By: Jack Rutledge on 08-13-2024 AST [Catalytic activity/Vol] 27 U/L <32 [facility] MCV (mean corpuscular volume ) determinationOrdered By: Jack Rutledge on 08-13-2024 MCV (RBC) [Entitic vol] 98.0 fL 81-99 [facility] Mean corpuscular hemoglobin (MCH) determinationOrdered By: Jack Rutledge on 08-13-2024 MCH (RBC) [Entitic mass] 32.7 pg High 27.0-32.0 [facility] Mean corpuscular hemoglobin concentration (MCHC) determinationOrdered By: Jack Rutledge on 08-13-2024 MCHC (RBC) [Mass/Vol] 33.3 g/dL 32-36 [facility] Mean platelet volume determi nationOrdered By: Jack Rutledge on 08-13-2024 Platelet mean volume (Bld) [Entitic vol] 10.0 fL 6.2-12.0 [facility] Platelet countOrdered By: Shauna Rutledge on 08-13-2024 Platelets (Bld) [#/Vol] 149 10*3/uL Low 150-450 [facility] Potassium (Unsp spec) [Mass/ Vol]Ordered By: Jack Rutledge on 08-13-2024 Potassium [Moles/Vol] 4.1 mmol/L 3.3-5.1 [facility] Potassium measurement (mass/ volume)Ordered By: Jack Rutledge on 08-13-2024 Potassium (Unsp spec) [Mass/Vol] 4.1 mmol/L 3.3-5.1 [facility] RBC Auto (Bld) [#/Vol]Ordere d By: Jack Rutledge on 08-13-2024 RBC (Bld) [#/Vol] 3.03 10*6/uL Low 4.2-5.4 [facility] Serum creatinine measurement (mass/volume)Ordered By: Jack Rutledge on 08-13-2024 Creatinine [Mass/Vol] 1.06 mg/dL 0.70-1.20 [facility] Serum globulin measurementOr dered By: Jack Rutledge on 08-13-2024 Globulin (S) [Mass/Vol] 2.3 g/dL 2.2-4.2 [facility] Serum glucose measurement (m ass/volume)Ordered By: Jack Rutledge on 08-13-2024 Glucose [Mass/Vol] 94 mg/dL 70-[address] [facility] Serum or plasma alanine tovar otransferase (ALT) measurementOrdered By: Jack Rutledge on 08-13-2024 ALT [Catalytic activity/Vol] 18 U/L <35 [facility] Serum or plasma albumin maude urement (mass/volume)Ordered By: Jack Rutledge on 08-13-2024 Albumin [Mass/Vol] 3.8 g/dL 3.4-4.[address] [facility] Serum or plasma albumin/glob ulin mass ratioOrdered By: Jack Rutledge on 08-13-2024 Albumin/Globulin [Mass ratio] 1.6 {ratio} 0.9-2.4 [facility] Serum or plasma alkaline nilton sphatase measurementOrdered By: Jack Rutledge on 08-13-2024 ALP [Catalytic activity/Vol] 79 U/L 35-104 [facility] Serum or plasma calcium maude urement (mass/volume)Ordered By: Jack Rutledge on 08-13-2024 Calcium [Mass/Vol] 9.3 mg/dL 7.6-11.[address] [facility] Serum or plasma urea nitroge n measurement (mass/volume)Ordered By: Jack Rutledge on 08-13-2024 Urea nitrogen [Mass/Vol] 28 mg/dL High 4-19 [facility] Sodium levelOrdered By: Nando Rutledge on 08-13-2024 Sodium [Moles/Vol] 140 mmol/L 133-[address] [facility] TSH DL <= 0.005 mIU/L QnOrde red By: Jack Rutledge on 08-13-2024 Thyroid Stimulating Hormone (TSH) 9.140 uIU/mL High 0.300-4.200 [facility] TSH Qn 9.140 uIU/mL High 0.300-4.200 [facility] Thyroid Stim Hormone (TSH)on 08-13-2024 TSH 9.140 uIU/mL High 0.300-4.200 [facility] Comment on above: Order Comment: Performed By: #### L 100.0500 #### [facility] [address] [place], [address] Total proteinOrdered By: Balwinder Rutledge on 08-13-2024 Protein [Mass/Vol] 6.1 g/dL 5.9-8.[address] [facility] Vitamin B12 ser/plasOrdered By: Jack Rutledge on 08-13-2024 Cobalamin (Vitamin B12) [Mass/Vol] 744 pg/mL 180-914 [facility] White blood cell (WBC) count Ordered By: Jack Rutledge on 08-13-2024 WBC (Bld) [#/Vol] 4.7 10*3/uL 4.4-11.[address] [facility] Vitamin B12 ser/plasOrdered By: Dev Gutierrez on 07-30-2024 Cobalamin (Vitamin B12) [Mass/Vol] 802 pg/mL Normal 180-914 [facility] Comment on above: Order Comment: Performed By: #### L 100.0500 #### [facility] [address] [place], [address] Urine Cultureon 07-26-2024 URC Presumptive E. coli Hanalei Count >100,000 Presumptive E. coli: REACTION Ampicillin [...] TMP SMX Islt PARMINDER <=20 S Normal [facility] Comment on above: Performed By: #### L 100.0500 #### [facility] [address] [place], [address] Bilirubin Test strip Ql (U)O rdered By: Dev Gutierrez on 07-24-2024 Bilirubin Ql (U) Negative Negative [facility] Epithelial cells.squamous LM Ql (Urine sed)Ordered By: Dev Gutierrez on 07-24-2024 Epithelial cells.squamous LM.HPF (Urine sed) [#/Area] 0 /[HPF] 5-10 [facility] Glucose Ql (U)Ordered By: Morris on 07-24-2024 Urine Glucose (UA) Normal mg/dl Normal [facility] Ketones Test strip Ql (U)Ord ered By: Dev Gutierrez on 07-24-2024 Ketones Ql (U) Negative Negative [facility] Microscopic analysis of urin e for red blood cells (RBC)Ordered By: Dev Gutierrez on 07-24-2024 Microscopic analysis of urine for red blood cells (RBC) 0 SEEN /hpf 0-5 [facility] Urine RBC 0 SEEN /hpf 0-5 [facility] Mucus LM Ql (Urine sed)Order ed By: Dev Gutierrez on 07-24-2024 Mucus Ql (Urine sed) 0 SEEN /hpf [facility] Nitrite Test strip Ql (U)Ord ered By: Dev Gutierrez on 03-11-2025 Nitrite Ql (U) Positive High Negative [facility] Protein Test strip Ql (U)Ord ered By: Dev Gutierrez on 07-24-2024 Protein Ql (U) 30 mg/dl High Negative [facility] Squamous epithelial cells de tection in urine sediment by light microscopyOrdered By: Dev Gutierrez on 07-24-2024 Epithelial cells.squamous LM Ql (Urine sed) 0-5 SEEN /hpf 5-10 [facility] Urinalysis, Completeon 07-24 BACTERIA 4+ /hpf Normal None Seen [facility] Comment on above: Order Comment: Performed By: #### L 100.0500 #### [facility] [address] [place], [address] EPI,SQUAMOUS 0-5 SEEN Normal 5-10 [facility] Comment on above: Order Comment: Performed By: #### L 100.0500 #### [facility] [address] [place], [address] RBC 0 SEEN Normal 0-5 [facility] Comment on above: Order Comment: Performed By: #### L 100.0500 #### [facility] [address] [place], [address] WBC 25-50 SEEN Normal 0-5 [facility] Comment on above: Order Comment: Performed By: #### L 100.0500 #### [facility] [address] [place], [address] Mucus Ql (Urine sed) 0 SEEN Normal [facility] Comment on above: Order Comment: Performed By: #### L 100.0500 #### [facility] [address] [place], [address] Urine blood detectionOrdered By: Dev Gutierrez on 07-24-2024 Urine Occult Blood Negative Negative [facility] Urine clarityOrdered By: Danielle Gutierrez on 07-24-2024 Clarity (U) Clear Clear [facility] Urine color determinationOrd ered By: Dev Gutierrez on 07-24-2024 Color (U) Yellow Yellow [facility] Urine cultureOrdered By: Danielle Gutierrez on 07-24-2024 Bacteria identified Cx Nom (U) Presumptive E. coli Abnormal [facility] Urine glucose detectionOrder ed By: Dev Gutierrez on 07-24-2024 Glucose Ql (U) Normal mg/dl Normal [facility] Urine leukocyte esterase det ection by dipstickOrdered By: Dev Gutierrez on 07-24-2024 Leukocyte esterase Test strip Ql (U) 500 /ul High Negative [facility] Urine pHOrdered By: Dev rodriguez on 07-24-2024 pH (U) 6.0 [pH] 5.0 - 8.0 [facility] Urine sediment bacteria coun t by microscopy (number/high power field)Ordered By: Dev Gutierrez on 07-24-2024 Bacteria LM.HPF (Urine sed) [#/Area] 4 /[HPF] None Seen [facility] Urine specific gravity measu rementOrdered By: Dev Gutierrez on 07-24-2024 Specific gravity (U) [Rel density] 1.015 1.002-1.030 [facility] Urine urobilinogen measureme ntOrdered By: Dev Gutierrez on 07-24-2024 Urobilinogen Ql (U) Normal mg/dl Normal [facility] Urobilinogen Ql (U)Ordered B y: Dev Gutierrez on 07-24-2024 Urine Urobilinogen Normal mg/dl Normal [facility] White blood cell countOrdere d By: Dev Gutierrez on 07-24-2024 Urine WBC 25-50 SEEN /hpf 0-5 [facility] White blood cell count 25-50 SEEN /hpf 0-5 [facility] Urine Cultureon 07-14-2024 URC Presumptive E. coli Hanalei Count >100,000 Presumptive E. coli: REACTION Ampicillin [...] TMP SMX Islt PARMINDER <=20 S Normal [facility] Comment on above: Performed By: #### L 100.0500 #### [facility] [address] [place], [place], [id number] Urinalysis, Completeon 07-12 RBC 0 SEEN Normal 0-5 [facility] Comment on above: Order Comment: Performed By: #### L 100.0500 #### [facility] [address] [place], [place], [id number] BUN/creatinine ratioOrdered By: Dev Gutierrez on 07-11-2024 Urea nitrogen/Creatinine [Mass ratio] 23.3 mg/mg High 10-20 [facility] Bilirubin Test strip Ql (U)O rdered By: Dev Gutierrez on 07-11-2024 Bilirubin Ql (U) Negative Negative [facility] Bilirubin, totalOrdered By: Dev Gutierrez on 07-11-2024 Bilirubin [Mass/Vol] 0.65 mg/dL 0.00-1.30 [facility] CBC-Complete Blood Cnt No Di ffon 07-11-2024 Erythrocyte distribution width (RBC) [Ratio] 14.6 % Normal 11.6-14.6 [facility] Comment on above: Order Comment: Performed By: #### L 100.0500 #### [facility] [address] [place], [address] Hematocrit (Bld) [Volume fraction] 29.6 % Low 37-47 [facility] Comment on above: Order Comment: Performed By: #### L 100.0500 #### [facility] [address] [place], [place], [id number] (056) Hemoglobin (Bld) [Mass/Vol] 10.1 g/dL Low 12.0-15.0 [facility] Comment on above: Order Comment: - Performed By: #### L 100.0500 #### [facility] [address] [place], [address] MCH (RBC) [Entitic mass] 32.7 pg High 27.0-32.0 [facility] Comment on above: Order Comment: - Performed By: #### L 100.0500 #### [facility] [address] [place], [address] MCHC (RBC) [Mass/Vol] 34.1 g/dL Normal 32-36 [facility] Comment on above: Order Comment: - Performed By: #### L 100.0500 #### [facility] [address] [place], [address] MCV (RBC) [Entitic vol] 95.8 fL Normal 81-99 [facility] Comment on above: Order Comment: - Performed By: #### L 100.0500 #### [facility] [address] [place], [address] Platelet mean volume (Bld) [Entitic vol] 9.6 fL Normal 6.2-12.0 [facility] Comment on above: Order Comment: - Performed By: #### L 100.0500 #### [facility] [address] [place], [address] Platelets (Bld) [#/Vol] 176 10*3/uL Normal 150-450 [facility] Comment on above: Order Comment: - Performed By: #### L 100.0500 #### [facility] [address] [place], [address] RBC (Bld) [#/Vol] 3.09 10*6/uL Low 4.2-5.4 [facility] Comment on above: Order Comment: - Performed By: #### L 100.0500 #### [facility] [address] [place], [address] RDW SD 48.5 fl High 35.1-43.9 [facility] Comment on above: Order Comment: Performed By: #### L 100.0500 #### [facility] [address] [place], [address] WBC (Bld) [#/Vol] 7.2 10*3/uL Normal 4.4-11.[address] [facility] Comment on above: Order Comment: Performed By: #### L 100.0500 #### [facility] [address] [place], [address] Carbon dioxide measurementOr dered By: Dev Gutierrez on 07-11-2024 CO2 [Moles/Vol] 21.1 mmol/L Low 22.0-29.0 [facility] Chloride measurementOrdered By: Dev Gutierrez on 07-11-2024 Chloride [Moles/Vol] 109 mmol/L High 96-108 [facility] Comprehensive Metabolic Prof ilon 07-11-2024 Albumin [Mass/Vol] 3.7 g/dL Normal 3.4-4.[address] [facility] Comment on above: Order Comment: Performed By: #### L 100.0500 #### [facility] [address] [place], [address] Albumin/Globulin [Mass ratio] 1.8 {ratio} Normal 0.9-2.4 [facility] Comment on above: Order Comment: Performed By: #### L 100.0500 #### [facility] [address] [place], [address] ALK PHOS 82 U/L Normal 35-104 [facility] Comment on above: Order Comment: Performed By: #### L 100.0500 #### [facility] [address] [place], [address] ALT [Catalytic activity/Vol] 13 U/L Normal <=34 [facility] Comment on above: Order Comment: Performed By: #### L 100.0500 #### [facility] [address] [place], [address] Anion gap [Moles/Vol] 11 mmol/L Normal 5-15 [facility] Comment on above: Order Comment: Performed By: #### L 100.0500 #### [facility] [address] [place], [address] AST [Catalytic activity/Vol] 21 U/L Normal <=31 [facility] Comment on above: Order Comment: Performed By: #### L 100.0500 #### [facility] [address] [place], [address] Bilirubin [Mass/Vol] 0.65 mg/dL Normal 0.00-1.30 [facility] Comment on above: Order Comment: Performed By: #### L 100.0500 #### [facility] [address] [place], [address] BUN/CRE 23.3 RATIO High 10-20 [facility] Comment on above: Order Comment: Performed By: #### L 100.0500 #### [facility] [address] [place], [address] Calcium [Mass/Vol] 8.9 mg/dL Normal 7.6-11.[address] [facility] Comment on above: Order Comment: Performed By: #### L 100.0500 #### [facility] [address] [place], [address] Chloride [Moles/Vol] 109 mmol/L High 96-108 [facility] Comment on above: Order Comment: Performed By: #### L 100.0500 #### [facility] [address] [place], [address] CO2 [Moles/Vol] 21.1 mmol/L Low 22.0-29.0 [facility] Comment on above: Order Comment: Performed By: #### L 100.0500 #### [facility] [address] [place], [address] Creatinine [Mass/Vol] 0.9 mg/dL Normal 0.6-1.0 [facility] Comment on above: Order Comment: Performed By: #### L 100.0500 #### [facility] [address] [place], [address] GFR/1.73 sq M.predicted among non-blacks MDRD (S/P/Bld) [Vol rate/Area] 61 mL/min/{1.73_m2} Normal >60 [facility] Comment on above: Order Comment: Result Comment: mL/m in/1.73m2 CKD-EPI Creatinine Equation (2020) Performed By: #### L 100.0500 #### [facility] [address] [place], [address] Globulin (S) [Mass/Vol] 2.1 g/dL Low 2.2-4.2 [facility] Comment on above: Order Comment: Performed By: #### L 100.0500 #### [facility] [address] [place], [address] Glucose [Mass/Vol] 96 mg/dL Normal 70-[address] [facility] Comment on above: Order Comment: Performed By: #### L 100.0500 #### [facility] [address] [place], [address] Potassium [Moles/Vol] 3.7 mmol/L Normal 3.3-5.1 [facility] Comment on above: Order Comment: Performed By: #### L 100.0500 #### [facility] [address] [place], [address] Sodium [Moles/Vol] 141 mmol/L Normal 133-[address] [facility] Comment on above: Order Comment: Performed By: #### L 100.0500 #### [facility] [address] [place], [address] T PROT 5.7 g/dL Low 5.9-8.4 [facility] Comment on above: Order Comment: Performed By: #### L 100.0500 #### [facility] [address] [place], [address] Urea nitrogen [Mass/Vol] 22 mg/dL High 4-19 [facility] Comment on above: Order Comment: Performed By: #### L 100.0500 #### [facility] [address] [place], [address] Creatinine [Moles/Vol]Ordere d By: Dev Gutierrez on 07-11-2024 Creatinine [Mass/Vol] 0.9 mg/dL 0.6-1.0 [facility] Epithelial cells.squamous LM Ql (Urine sed)Ordered By: Dev Gutierrez on 07-11-2024 Epithelial cells.squamous LM.HPF (Urine sed) [#/Area] 0 /[HPF] 5-10 [facility] Erythrocyte distribution wid th (RBC) [Ratio]Ordered By: Dev Gutierrez on 07-11-2024 Erythrocyte distribution width (RBC) [Entitic vol] 48.5 fL High 35.1-43.9 [facility] Erythrocyte distribution wid th ratioOrdered By: Dev Gutierrez on 07-11-2024 Erythrocyte distribution width (RBC) [Ratio] 14.6 % 11.6-14.6 [facility] Erythrocyte distribution wid th standard deviationOrdered By: Dev Gutierrez on 07-11-2024 Erythrocyte distribution width (RBC) [Ratio] 48.5 fl High 35.1-43.9 [facility] GFR/1.73 sq M.predicted tyler g non-blacks MDRD (S/P/Bld) [Vol rate/Area]Ordered By: Dev Gutierrez on 07-11-2024 Estimated GFR (MDRD) Non-Af Amer 61 >60 [facility] Comment on above: mL/min/1.73m2 CKD-EP I Creatinine Equation (2020) Glomerular filtration rate ( GFR) estimation/1.73 sq m using serum, plasma, or whole bOrdered By: Dev Gutierrez on 07-11-2024 GFR/1.73 sq M.predicted among non-blacks MDRD (S/P/Bld) [Vol rate/Area] 61 mL/min/{1.73_m2} >60 [facility] Comment on above: mL/min/1.73m2 CKD-EP I Creatinine Equation (2020) Glucose Ql (U)Ordered By: Morris on 07-11-2024 Urine Glucose (UA) Normal mg/dl Normal [facility] Hematocrit Auto (Bld) [Volum e fraction]Ordered By: Dev Gutierrez on 07-11-2024 Hematocrit (Bld) [Volume fraction] 29.6 % Low 37-47 [facility] Hemoglobin measurementOrdere d By: Dev Gutierrez on 07-11-2024 Hemoglobin (Bld) [Mass/Vol] 10.1 g/dL Low 12.0-15.0 [facility] Ketones Test strip Ql (U)Ord ered By: Dev Gutierrez on 07-11-2024 Ketones Ql (U) Negative Negative [facility] - Chemistry and C hemistry - challengeOrdered By: Dev Gutierrez on 07-11-2024 AST [Catalytic activity/Vol] 21 U/L <32 [facility] MCV (mean corpuscular volume ) determinationOrdered By: Dev Gutierrez on 07-11-2024 MCV (RBC) [Entitic vol] 95.8 fL 81-99 [facility] Mean corpuscular hemoglobin (MCH) determinationOrdered By: Dev Gutierrez on 07-11-2024 MCH (RBC) [Entitic mass] 32.7 pg High 27.0-32.0 [facility] Mean corpuscular hemoglobin concentration (MCHC) determinationOrdered By: Dev Gutierrez on 07-11-2024 MCHC (RBC) [Mass/Vol] 34.1 g/dL 32-36 [facility] Mean platelet volume determi nationOrdered By: Dev Gutierrez on 07-11-2024 Platelet mean volume (Bld) [Entitic vol] 9.6 fL 6.2-12.0 [facility] Microscopic analysis of urin e for red blood cells (RBC)Ordered By: Dev Gutierrez on 07-11-2024 Microscopic analysis of urine for red blood cells (RBC) 0 SEEN /hpf 0-5 [facility] Urine RBC 0 SEEN /hpf 0-5 [facility] Mucus LM Ql (Urine sed)Order ed By: Dev Gutierrez on 07-11-2024 Mucus Ql (Urine sed) 0 SEEN /hpf [facility] Nitrite Test strip Ql (U)Ord ered By: Dev Gutierrez on 07-11-2024 Nitrite Ql (U) Positive High Negative [facility] Platelet countOrdered By: Morris on 07-11-2024 Platelets (Bld) [#/Vol] 176 10*3/uL 150-450 [facility] Protein Test strip Ql (U)Ord ered By: Dev Gutierrez on 07-11-2024 Protein Ql (U) 15 mg/dl High Negative [facility] RBC Auto (Bld) [#/Vol]Ordere d By: Dev Gutierrez on 07-11-2024 RBC (Bld) [#/Vol] 3.09 10*6/uL Low 4.2-5.4 [facility] Serum globulin measurementOr dered By: Dev Gutierrez on 07-11-2024 Globulin (S) [Mass/Vol] 2.1 g/dL Low 2.2-4.2 [facility] Serum glucose measurement (m ass/volume)Ordered By: Dev Gutierrez on 07-11-2024 Glucose [Mass/Vol] 96 mg/dL 70-[address] [facility] Serum or plasma alanine tovar otransferase (ALT) measurementOrdered By: Dev Gutierrez on 07-11-2024 ALT [Catalytic activity/Vol] 13 U/L <35 [facility] Serum or plasma albumin maude urement (mass/volume)Ordered By: Dev Gutierrez on 07-11-2024 Albumin [Mass/Vol] 3.7 g/dL 3.4-4.[address] [facility] Serum or plasma albumin/glob ulin mass ratioOrdered By: Dev Gutierrez on 07-11-2024 Albumin/Globulin [Mass ratio] 1.8 {ratio} 0.9-2.4 [facility] Serum or plasma alkaline nilton sphatase measurementOrdered By: Dev Gutierrez on 07-11-2024 ALP [Catalytic activity/Vol] 82 U/L 35-104 [facility] Serum or plasma anion gap de termination (moles/volume)Ordered By: Dev Gutierrez on 07-11-2024 Anion gap [Moles/Vol] 11 mmol/L 5-15 [facility] Serum or plasma calcium maude urement (mass/volume)Ordered By: Dev Gutierrez on 07-11-2024 Calcium [Mass/Vol] 8.9 mg/dL 7.6-11.[address] [facility] Serum or plasma creatinine m easurement (moles/volume)Ordered By: Dev Gutierrez on 07-11-2024 Creatinine [Moles/Vol] 0.9 mg/dL 0.6-1.0 [facility] Serum or plasma potassium me asurementOrdered By: Dev Gutierrez on 07-11-2024 Potassium [Moles/Vol] 3.7 mmol/L 3.3-5.1 [facility] Serum or plasma sodium measu rement (moles/volume)Ordered By: Dev Gutierrez on 07-11-2024 Sodium [Moles/Vol] 141 mmol/L 133-[address] [facility] Serum or plasma urea nitroge n measurement (mass/volume)Ordered By: Dev Gutierrez on 07-11-2024 Urea nitrogen [Mass/Vol] 22 mg/dL High 4-19 [facility] Squamous epithelial cells de tection in urine sediment by light microscopyOrdered By: Dev Gutierrez on 07-11-2024 Epithelial cells.squamous LM Ql (Urine sed) 0 SEEN /hpf 5-10 [facility] Total proteinOrdered By: Danielle Gutierrez on 07-11-2024 Protein [Mass/Vol] 5.7 g/dL Low 5.9-8.[address] [facility] Urine blood detectionOrdered By: Dev Gutierrez on 07-11-2024 Urine Occult Blood Negative Negative [facility] Urine clarityOrdered By: Danielle Gutierrez on 07-11-2024 Clarity (U) Sl. Cloudy Clear [facility] Urine color determinationOrd ered By: Dev Gutierrez on 07-11-2024 Color (U) Yellow Yellow [facility] Urine cultureOrdered By: Danielle Gutierrez on 07-11-2024 Bacteria identified Cx Nom (U) Presumptive E. coli Abnormal [facility] Urine glucose detectionOrder ed By: Dev Gutierrez on 07-11-2024 Glucose Ql (U) Normal mg/dl Normal [facility] Urine leukocyte esterase det ection by dipstickOrdered By: Dev Gutierrez on 07-11-2024 Leukocyte esterase Test strip Ql (U) 100 /ul High Negative [facility] Urine pHOrdered By: Dev rodriguez on 07-11-2024 pH (U) 6.5 [pH] 5.0 - 8.0 [facility] Urine sediment bacteria coun t by microscopy (number/high power field)Ordered By: Dev Gutierrez on 07-11-2024 Bacteria LM.HPF (Urine sed) [#/Area] 1 /[HPF] None Seen [facility] Urine specific gravity measu rementOrdered By: Dev Gutierrez on 07-11-2024 Specific gravity (U) [Rel density] 1.010 1.002-1.030 [facility] Urine urobilinogen measureme ntOrdered By: Dev Gutierrez on 07-11-2024 Urobilinogen Ql (U) Normal mg/dl Normal [facility] Urobilinogen Ql (U)Ordered B y: Dev Gutierrez on 07-11-2024 Urine Urobilinogen Normal mg/dl Normal [facility] White blood cell (WBC) count Ordered By: Dev Gutierrez on 07-11-2024 WBC (Bld) [#/Vol] 7.2 10*3/uL 4.4-11.[address] [facility] White blood cell countOrdere d By: Dev Gutierrez on 07-11-2024 Urine WBC 5-10 SEEN /hpf 0-5 [facility] White blood cell count 5-10 SEEN /hpf 0-5 [facility] Basic Metabolic Profile (BMP )on 07-06-2024 BUN/CRE 18.7 RATIO Normal 10-20 [facility] Comment on above: Order Comment: Performed By: #### L 500.4050, L501.9520, L100.0500 #### [facility] [address] [place], [address] CA,Total 9.3 mg/dL Normal 8.5-10.1 [facility] Comment on above: Order Comment: Performed By: #### L 500.4050, L501.9520, L100.0500 #### [facility] [address] [place], [address] EST GFR - AA 63 mL/min Normal >60 [facility] Comment on above: Order Comment: Result Comment: Afri can Taiwanese GFR Calc Performed By: #### L [id number], [id number], L100.0500 #### [facility] [address] [place], [address] GAP 5 Normal 5-15 [facility] Comment on above: Order Comment: Performed By: #### L [id number], [id number], L100.0500 #### [facility] [address] [place], [address] Blood urea nitrogen (BUN)/cr eatinine ratioOrdered By: Dev Gutierrez on 07-06-2024 Urea nitrogen/Creatinine [Mass ratio] 18.7 mg/mg 10- [facility] Carbon dioxide measurementOr dered By: Dev Gutierrez on 07-06-2024 CO2 [Moles/Vol] 23.0 mmol/L Normal 21.0-32.0 [facility] Comment on above: Order Comment: Performed By: #### L [id number], [id number], L100.0500 #### [facility] [address] [place], [address] Chloride measurementOrdered By: Dev Gutierrez on 07-06-2024 Chloride [Moles/Vol] 114 mmol/L High 98-107 [facility] Comment on above: Order Comment: Performed By: #### L [id number], [id number], L100.0500 #### [facility] [address] [place], [address] Estimated glomerular filtrat ion rate (GFR) AmericanOrdered By: Dev Gutierrez on 07-06-2024 Estimated GFR (MDRD) Amer 63 mL/min >60 [facility] Comment on above: GFR Calc Glomerular filtration rate ( GFR) estimationOrdered By: Dev Gutierrez on 07-06-2024 Estimated GFR (MDRD) Non-Af Amer 52 mL/min Low >60 [facility] Comment on above: Non- GFR Calc GFR/1.73 sq M.predicted among non-blacks MDRD (S/P/Bld) [Vol rate/Area] 52 mL/min/{1.73_m2} Low >60 [facility] Comment on above: Non- GFR Calc Order Comment: Result Comment: Non- GFR Calc Performed By: #### L [id number], L501.9520, L100.0500 #### [facility] [address] [place], [address] Glucose measurementOrdered B y: Dev Gutierrez on 07-06-2024 Glucose [Mass/Vol] 112 mg/dL High 74-[address] [facility] Comment on above: Fasting Glucose resu lt from 100 to 125 mg/dL suggests IMPAIRED HOMEOSTASIS per A.D.A. criteria. Order Comment: Result Comment: Fast ing Glucose result from 100 to 125 mg/dL suggests IMPAIRED HOMEOSTASIS per A.D.A. criteria. Performed By: #### L [id number], [id number], L100.0500 #### [facility] [address] [place], [address] Potassium measurementOrdered By: Dev Gutierrez on 07-06-2024 Potassium [Moles/Vol] 3.8 mmol/L Normal 3.5-5.1 [facility] Comment on above: Order Comment: Performed By: #### L [id number], [id number], L100.0500 #### [facility] [address] [place], [address] Serum anion gap measurementO rdered By: Dev Gutierrez on 07-06-2024 Anion gap [Moles/Vol] 5 mmol/L 5-15 [facility] Serum or plasma calcium maude urement (mass/volume)Ordered By: Dev Gutierrez on 07-06-2024 Calcium [Mass/Vol] 9.3 mg/dL 8.5-10.[address] [facility] Serum or plasma creatinine m easurement (mass/volume)Ordered By: Dev Gutierrez on 07-06-2024 Creatinine [Mass/Vol] 1.07 mg/dL High 0.55-1.02 [facility] Comment on above: The validity of the calculated GFR & GFRAA in patients over 70 years has not been determined. Clinical correlation is essential. Order Comment: Result Comment: The validity of the calculated GFR GFRAA in patients over 70 years has not been determined. Clinical correlation is essential. Performed By: #### L 500.4050, L501.9520, L100.0500 #### [facility] [address] [place], [address] Serum or plasma urea nitroge n measurement (mass/volume)Ordered By: Dev Gutierrez on 07-06-2024 Urea nitrogen [Mass/Vol] 20 mg/dL High 7-18 [facility] Comment on above: Order Comment: Performed By: #### L 500.4050, L501.9520, L100.0500 #### [facility] [address] [place], [place], [id number] Sodium levelOrdered By: Dev Gutierrez on 07-06-2024 Sodium [Moles/Vol] 142 mmol/L Normal 136-[address] [facility] Comment on above: Order Comment: Performed By: #### L 500.4050, L501.9520, L100.0500 #### [facility] [address] [place], [address] Albumin to globulin ratioOrd ered By: Dev Gutierrez on 07-02-2024 Albumin/Globulin [Mass ratio] 1.0 {ratio} 0.9-2.4 [facility] Bilirubin, totalOrdered By: Dev Gutierrez on 07-02-2024 Bilirubin [Mass/Vol] 1.20 mg/dL High 0.20-1.00 [facility] Comment on above: For patients on eltr ombopag therapy, use of Dimension [place] TBIL is not recommended. Blood urea nitrogen (BUN)/cr eatinine ratioOrdered By: Dev Gutierrez on 07-02-2024 Urea nitrogen/Creatinine [Mass ratio] 21.5 mg/mg High 10-20 [facility] CBC-Complete Blood Cnt No Di ffon 07-02-2024 Erythrocyte distribution width (RBC) [Ratio] 14.4 % Normal 11.6-14.6 [facility] Comment on above: Order Comment: Performed By: #### L 100.0500 #### [facility] [address] [place], [address] Hematocrit (Bld) [Volume fraction] 31.5 % Low 37-47 [facility] Comment on above: Order Comment: Performed By: #### L 100.0500 #### [facility] [address] [place], [address] Hemoglobin (Bld) [Mass/Vol] 9.9 g/dL Low 12.0-15.0 [facility] Comment on above: Order Comment: Performed By: #### L 100.0500 #### [facility] [address] [place], [address] MCH (RBC) [Entitic mass] 30.2 pg Normal 27.0-32.0 [facility] Comment on above: Order Comment: - Performed By: #### L 100.0500 #### [facility] [address] [place], [address] MCHC (RBC) [Mass/Vol] 31.4 g/dL Low 32-36 [facility] Comment on above: Order Comment: - Performed By: #### L 100.0500 #### [facility] [address] [place], [address] MCV (RBC) [Entitic vol] 96.0 fL Normal 81-99 [facility] Comment on above: Order Comment: Performed By: #### L 100.0500 #### [facility] [address] [place], [address] Platelet mean volume (Bld) [Entitic vol] 10.2 fL Normal 6.2-12.0 [facility] Comment on above: Order Comment: Performed By: #### L 100.0500 #### [facility] [address] [place], [address] Platelets (Bld) [#/Vol] 143 10*3/uL Low 150-450 [facility] Comment on above: Order Comment: - Performed By: #### L 100.0500 #### [facility] [address] [place], [address] RBC (Bld) [#/Vol] 3.28 10*6/uL Low 4.2-5.4 [facility] Comment on above: Order Comment: - Performed By: #### L 100.0500 #### [facility] [address] [place], [address] RDW SD 50.4 fl High 35.1-43.9 [facility] Comment on above: Order Comment: Performed By: #### L 100.0500 #### [facility] [address] [place], [address] WBC (Bld) [#/Vol] 4.8 10*3/uL Normal 4.4-11.[address] [facility] Comment on above: Order Comment: Performed By: #### L 100.0500 #### [facility] [address] [place], [address] Carbon dioxide measurementOr dered By: Dev Gutierrez on 07-02-2024 CO2 [Moles/Vol] 19.0 mmol/L Low 21.0-32.0 [facility] Chloride measurementOrdered By: Dev Gutierrez on 07-02-2024 Chloride [Moles/Vol] 110 mmol/L High 98-107 [facility] Comprehensive Metabolic Prof ilon 07-02-2024 Albumin [Mass/Vol] 3.1 g/dL Low 3.2-5.[address] [facility] Comment on above: Order Comment: Performed By: #### L 100.0500, L500.2500 #### [facility] [address] [place], [address] Albumin/Globulin [Mass ratio] 1.0 {ratio} Normal 0.9-2.4 [facility] Comment on above: Order Comment: Performed By: #### L 100.0500, L500.2500 #### [facility] [address] [place], [address] ALK P 68 U/L Normal 45-117 [facility] Comment on above: Order Comment: Performed By: #### L 100.0500, L500.2500 #### [facility] [address] [place], [address] ALT [Catalytic activity/Vol] 20 U/L Normal 13-56 [facility] Comment on above: Order Comment: Performed By: #### L 100.0500, L500.2500 #### [facility] [address] [place], [address] AST [Catalytic activity/Vol] 22 U/L Normal 15-37 [facility] Comment on above: Order Comment: Performed By: #### L 100.0500, L500.2500 #### [facility] [address] [place], [address] Bilirubin [Mass/Vol] 1.20 mg/dL High 0.20-1.00 [facility] Comment on above: Order Comment: Result Comment: For patients on eltrombopag therapy, use of Dimension [place] TBIL is not recommended. Performed By: #### L 100.0500, L500.2500 #### [facility] [address] [place], [address] BUN/CRE 21.5 RATIO High 10-20 [facility] Comment on above: Order Comment: Performed By: #### L 100.0500, L500.2500 #### [facility] [address] [place], [address] CA,Total 8.6 mg/dL Normal 8.5-10.1 [facility] Comment on above: Order Comment: Performed By: #### L 100.0500, L500.2500 #### [facility] [address] [place], [address] Chloride [Moles/Vol] 110 mmol/L High 98-107 [facility] Comment on above: Order Comment: Performed By: #### L 100.0500, L500.2500 #### [facility] [address] [place], [address] CO2 [Moles/Vol] 19.0 mmol/L Low 21.0-32.0 [facility] Comment on above: Order Comment: Performed By: #### L 100.0500, L500.2500 #### [facility] [address] [place], [address] Creatinine [Mass/Vol] 1.44 mg/dL High 0.55-1.02 [facility] Comment on above: Order Comment: Result Comment: The validity of the calculated GFR GFRAA in patients over 70 years has not been determined. Clinical correlation is essential. Performed By: #### L 100.0500, L500.2500 #### [facility] [address] [place], [address] EST GFR - AA 45 mL/min Low >60 [facility] Comment on above: Order Comment: Result Comment: Afri can Taiwanese GFR Calc Performed By: #### L 100.0500, L500.2500 #### [facility] [address] [place], [address] GAP 11 Normal 5-15 [facility] Comment on above: Order Comment: Performed By: #### L 100.0500, L500.2500 #### [facility] [address] [place], [address] GFR/1.73 sq M.predicted among non-blacks MDRD (S/P/Bld) [Vol rate/Area] 37 mL/min/{1.73_m2} Low >60 [facility] Comment on above: Order Comment: Result Comment: Non- GFR Calc Performed By: #### L 100.0500, L500.2500 #### [facility] [address] [place], [address] Globulin (S) [Mass/Vol] 3.2 g/dL Normal 2.2-4.2 [facility] Comment on above: Order Comment: Performed By: #### L 100.0500, L500.2500 #### [facility] [address] [place], [address] Glucose [Mass/Vol] 95 mg/dL Normal 74-[address] [facility] Comment on above: Order Comment: Performed By: #### L 100.0500, L500.2500 #### [facility] [address] [place], [address] Potassium [Moles/Vol] 3.3 mmol/L Low 3.5-5.1 [facility] Comment on above: Order Comment: Performed By: #### L 100.0500, L500.2500 #### [facility] [address] [place], [address] Sodium [Moles/Vol] 139 mmol/L Normal 136-[address] [facility] Comment on above: Order Comment: Performed By: #### L 100.0500, L500.2500 #### [facility] [address] [place], [address] T PROT 6.3 g/dL Low 6.4-8.2 [facility] Comment on above: Order Comment: Performed By: #### L 100.0500, L500.2500 #### [facility] [address] [place], [address] Urea nitrogen [Mass/Vol] 31 mg/dL High 7-18 [facility] Comment on above: Order Comment: Performed By: #### L 100.0500, L500.2500 #### [facility] [address] [place], [address] Erythrocyte distribution wid th (RBC) [Ratio]Ordered By: Dev Gutierrez on 07-02-2024 Erythrocyte distribution width (RBC) [Entitic vol] 50.4 fL High 35.1-43.9 [facility] Erythrocyte distribution wid th ratioOrdered By: Dev Gutierrez on 07-02-2024 Erythrocyte distribution width (RBC) [Ratio] 14.4 % 11.6-14.6 [facility] Erythrocyte distribution wid th standard deviationOrdered By: Dev Gutierrez on 07-02-2024 Erythrocyte distribution width (RBC) [Ratio] 50.4 fl High 35.1-43.9 [facility] Estimated glomerular filtrat ion rate (GFR) AmericanOrdered By: Dev Gutierrez on 07-02-2024 Estimated GFR (MDRD) Amer 45 mL/min Low >60 [facility] Comment on above: GFR Calc Glomerular filtration rate ( GFR) estimationOrdered By: Dev Gutierrez on 07-02-2024 Estimated GFR (MDRD) Non-Af Amer 37 mL/min Low >60 [facility] Comment on above: Non- GFR Calc GFR/1.73 sq M.predicted among non-blacks MDRD (S/P/Bld) [Vol rate/Area] 37 mL/min/{1.73_m2} Low >60 [facility] Comment on above: Non- GFR Calc Glucose measurementOrdered B y: Dev Gutierrez on 07-02-2024 Glucose [Mass/Vol] 95 mg/dL 74-[address] [facility] Hematocrit Auto (Bld) [Volum e fraction]Ordered By: Dev Gutierrez on 07-02-2024 Hematocrit (Bld) [Volume fraction] 31.5 % Low 37-47 [facility] Hemoglobin measurementOrdere d By: eDv Gutierrez on 07-02-2024 Hemoglobin (Bld) [Mass/Vol] 9.9 g/dL Low 12.0-15.0 [facility] - Chemistry and C hemistry - challengeOrdered By: Dev Gutierrez on 07-02-2024 AST [Catalytic activity/Vol] 22 U/L 15-37 [facility] MCV (mean corpuscular volume ) determinationOrdered By: Dev Gutierrez on 07-02-2024 MCV (RBC) [Entitic vol] 96.0 fL 81-99 [facility] Mean corpuscular hemoglobin (MCH) determinationOrdered By: Dev Gutierrez on 07-02-2024 MCH (RBC) [Entitic mass] 30.2 pg 27.0-32.0 [facility] Mean corpuscular hemoglobin concentration (MCHC) determinationOrdered By: Dev Gutierrez on 07-02-2024 MCHC (RBC) [Mass/Vol] 31.4 g/dL Low 32-36 [facility] Mean platelet volume determi nationOrdered By: Dev Gutierrez on 07-02-2024 Platelet mean volume (Bld) [Entitic vol] 10.2 fL 6.2-12.0 [facility] Platelet countOrdered By: [place] on 07-02-2024 Platelets (Bld) [#/Vol] 143 10*3/uL Low 150-450 [facility] Potassium measurementOrdered By: Dev Gutierrez on 07-02-2024 Potassium [Moles/Vol] 3.3 mmol/L Low 3.5-5.1 [facility] RBC Auto (Bld) [#/Vol]Ordere d By: Dev Gutierrez on 07-02-2024 RBC (Bld) [#/Vol] 3.28 10*6/uL Low 4.2-5.4 [facility] Serum anion gap measurementO rdered By: Dev Gutierrez on 07-02-2024 Anion gap [Moles/Vol] 11 mmol/L 5-15 [facility] Serum globulin measurementOr dered By: Dev Gutierrez on 07-02-2024 Globulin (S) [Mass/Vol] 3.2 g/dL 2.2-4.2 [facility] Serum or plasma alanine tovar otransferase (ALT) measurementOrdered By: Dev Gutierrez on 07-02-2024 ALT [Catalytic activity/Vol] 20 U/L 13-56 [facility] Serum or plasma albumin maude urement (mass/volume)Ordered By: Dev Gutierrez on 07-02-2024 Albumin [Mass/Vol] 3.1 g/dL Low 3.2-5.[address] [facility] Serum or plasma alkaline nilton sphatase measurementOrdered By: Dev Gutierrez on 07-02-2024 ALP [Catalytic activity/Vol] 68 U/L 45-117 [facility] Serum or plasma calcium maude urement (mass/volume)Ordered By: Dev Gutierrez on 07-02-2024 Calcium [Mass/Vol] 8.6 mg/dL 8.5-10.[address] [facility] Serum or plasma creatinine m easurement (mass/volume)Ordered By: Dev Gutierrez on 07-02-2024 Creatinine [Mass/Vol] 1.44 mg/dL High 0.55-1.02 [facility] Comment on above: The validity of the calculated GFR & GFRAA in patients over 70 years has not been determined. Clinical correlation is essential. Serum or plasma thyroid stim ulating hormone (TSH) measurement (units/volume)Ordered By: Dev Gutierrez on 07-02-2024 TSH Qn 5.820 uIU/mL High 0.358-3.740 [facility] Serum or plasma urea nitroge n measurement (mass/volume)Ordered By: Dev Gutierrez on 07-02-2024 Urea nitrogen [Mass/Vol] 31 mg/dL High 7-18 [facility] Sodium levelOrdered By: Dev Gutierrez on 07-02-2024 Sodium [Moles/Vol] 139 mmol/L 136-[address] [facility] TSH QnOrdered By: Dev [place] on 07-02-2024 Thyroid Stimulating Hormone (TSH) 5.820 uIU/mL High 0.358-3.740 [facility] Thyroid Stim Hormone (TSH)on 07-02-2024 TSH 5.820 uIU/mL High 0.358-3.740 [facility] Comment on above: Order Comment: Performed By: #### L 100.0500, L500.2500 #### [facility] [address] [place], [place], [id number] Total proteinOrdered By: Danielle Gutierrez on 07-02-2024 Protein [Mass/Vol] 6.3 g/dL Low 6.4-8.[address] [facility] Vitamin B12on 07-02-2024 Cobalamin (Vitamin B12) [Mass/Vol] 1871 pg/mL High 211-911 [facility] Comment on above: Order Comment: Performed By: #### L 100.0500, L500.2500 #### [facility] [address] [place], [address] Vitamin B12 measurementOrder ed By: Dev Gutierrez on 07-02-2024 Cobalamin (Vitamin B12) [Mass/Vol] 1871 pg/mL High 211-911 [facility] White blood cell (WBC) count Ordered By: Dev Gutierrez on 07-02-2024 WBC (Bld) [#/Vol] 4.8 10*3/uL 4.4-11.[address] [facility] Albumin to globulin ratioOrd ered By: Dev Gutierrez on 05-21-2024 Albumin/Globulin [Mass ratio] 1.1 {ratio} Normal 0.9-2.4 [facility] Comment on above: Order Comment: Performed By: #### L 500.4050, L501.9520, L100.0500 #### [facility] [address] [place], [address] Automated blood erythrocyte countOrdered By: Dev Gutierrez on 05-21-2024 RBC (Bld) [#/Vol] 3.11 10*6/uL Low 4.2-5.4 [facility] Comment on above: Order Comment: Performed By: #### L 500.4050, L501.9520, L100.0500 #### [facility] [address] [place], [address] Automated blood hematocrit ( percentage)Ordered By: Dev Gutierrez on 05-21-2024 Hematocrit (Bld) [Volume fraction] 30.1 % Low 37-47 [facility] Comment on above: Order Comment: Performed By: #### L 500.4050, L501.9520, L100.0500 #### [facility] [address] [place], [address] Bilirubin, totalOrdered By: Dev Gutierrez on 05-21-2024 Bilirubin [Mass/Vol] 1.00 mg/dL Normal 0.20-1.00 [facility] Comment on above: For patients on eltr ombopag therapy, use of Dimension [place] TBIL is not recommended. Order Comment: Result Comment: For patients on eltrombopag therapy, use of Dimension [place] TBIL is not recommended. Performed By: #### L 500.4050, L501.9520, L100.0500 #### [facility] [address] [place], [address] Blood urea nitrogen (BUN)/cr eatinine ratioOrdered By: Dev Gutierrez on 05-21-2024 Urea nitrogen/Creatinine [Mass ratio] 27.1 mg/mg High 10-20 [facility] CBC-Complete Blood Cnt No Di ffon 05-21-2024 RDW SD 48.4 fl High 35.1-43.9 [facility] Comment on above: Order Comment: Performed By: #### L 500.4050, L501.9520, L100.0500 #### [facility] [address] [place], [address] Carbon dioxide measurementOr dered By: Dev Gutierrez on 05-21-2024 CO2 [Moles/Vol] 25.0 mmol/L Normal 21.0-32.0 [facility] Comment on above: Order Comment: Performed By: #### L 500.4050, L501.9520, L100.0500 #### [facility] [address] [place], [address] Chloride measurementOrdered By: Dev Gutierrez on 05-21-2024 Chloride [Moles/Vol] 112 mmol/L High 98-107 [facility] Comment on above: Order Comment: Performed By: #### L 500.4050, L501.9520, L100.0500 #### [facility] [address] [place], [address] Comprehensive Metabolic Prof ilon 01-06-2025 ALK P 105 U/L Normal 45-117 [facility] Comment on above: Order Comment: Performed By: #### L 500.4050, L501.9520, L100.0500 #### [facility] [address] [place], [address] BUN/CRE 27.1 RATIO High 10-20 [facility] Comment on above: Order Comment: Performed By: #### L 500.4050, L501.9520, L100.0500 #### [facility] [address] [place], [address] CA,Total 9.0 mg/dL Normal 8.5-10.1 [facility] Comment on above: Order Comment: Performed By: #### L 500.4050, L501.9520, L100.0500 #### [facility] [address] [place], [address] EST GFR - AA 63 mL/min Normal >60 [facility] Comment on above: Order Comment: Result Comment: Afri can Taiwanese GFR Calc Performed By: #### L 500.4050, L501.9520, L100.0500 #### [facility] [address] [place], [address] GAP 6 Normal 5-15 [facility] Comment on above: Order Comment: Performed By: #### L 500.4050, L501.9520, L100.0500 #### [facility] [address] [place], [address] GFR/1.73 sq M.predicted among non-blacks MDRD (S/P/Bld) [Vol rate/Area] 52 mL/min/{1.73_m2} Low >60 [facility] Comment on above: Order Comment: Result Comment: Non- GFR Calc Performed By: #### L 500.4050, L501.9520, L100.0500 #### [facility] [address] [place], [address] T PROT 6.0 g/dL Low 6.4-8.2 [facility] Comment on above: Order Comment: Performed By: #### L 500.4050, L501.9520, L100.0500 #### [facility] [address] [place], [address] Comprehensive Metabolic Prof ilOrdered By: Dev Gutierrez on 05-21-2024 AST [Catalytic activity/Vol] 16 U/L Normal 15-37 [facility] Comment on above: Order Comment: Performed By: #### L 500.4050, L501.9520, L100.0500 #### [facility] [address] [place], [address] Erythrocyte distribution wid th (RBC) [Ratio]Ordered By: Dev Gutierrez on 05-21-2024 Erythrocyte distribution width (RBC) [Entitic vol] 48.4 fL High 35.1-43.9 [facility] Erythrocyte distribution wid th ratioOrdered By: Dev Gutierrez on 05-21-2024 Erythrocyte distribution width (RBC) [Ratio] 13.7 % Normal 11.6-14.6 [facility] Comment on above: Order Comment: Performed By: #### L 500.4050, L501.9520, L100.0500 #### [facility] [address] [place], [address] Estimated glomerular filtrat ion rate (GFR) AmericanOrdered By: Dev Gutierrez on 05-21-2024 Estimated GFR (MDRD) Amer 63 mL/min >60 [facility] Comment on above: GFR Calc Glomerular filtration rate ( GFR) estimationOrdered By: Dev Gutierrez on 05-21-2024 Estimated GFR (MDRD) Non-Af Amer 52 mL/min Low >60 [facility] Comment on above: Non- GFR Calc Glucose measurementOrdered B y: Dev Gutierrez on 05-21-2024 Glucose [Mass/Vol] 105 mg/dL Normal 74-[address] [facility] Comment on above: Fasting Glucose resu lt from 100 to 125 mg/dL suggests IMPAIRED HOMEOSTASIS per A.D.A. criteria. Order Comment: Result Comment: Fast ing Glucose result from 100 to 125 mg/dL suggests IMPAIRED HOMEOSTASIS per A.D.A. criteria. Performed By: #### L 500.4050, L501.9520, L100.0500 #### [facility] [address] [place], [address] Hemoglobin measurementOrdere d By: Dev Gutierrez on 05-21-2024 Hemoglobin (Bld) [Mass/Vol] 9.7 g/dL Low 12.0-15.0 [facility] Comment on above: Order Comment: Performed By: #### L 500.4050, L501.9520, L100.0500 #### [facility] [address] [place], [address] MCV (mean corpuscular volume ) determinationOrdered By: Dev Gutierrez on 05-21-2024 MCV (RBC) [Entitic vol] 96.8 fL Normal 81-99 [facility] Comment on above: Order Comment: Performed By: #### L 500.4050, L501.9520, L100.0500 #### [facility] [address] [place], [address] Mean corpuscular hemoglobin (MCH) determinationOrdered By: Dev Gutierrez on 05-21-2024 MCH (RBC) [Entitic mass] 31.2 pg Normal 27.0-32.0 [facility] Comment on above: Order Comment: Performed By: #### L 500.4050, L501.9520, L100.0500 #### [facility] [address] [place], [address] Mean corpuscular hemoglobin concentration (MCHC) determinationOrdered By: Dev Gutierrez on 05-21-2024 MCHC (RBC) [Mass/Vol] 32.2 g/dL Normal 32-36 [facility] Comment on above: Order Comment: Performed By: #### L 500.4050, L501.9520, L100.0500 #### [facility] [address] [place], [address] Mean platelet volume determi nationOrdered By: Dev Gutierrez on 05-21-2024 Platelet mean volume (Bld) [Entitic vol] 10.2 fL Normal 6.2-12.0 [facility] Comment on above: Order Comment: Performed By: #### L 500.4050, L501.9520, L100.0500 #### [facility] [address] [place], [address] Platelet countOrdered By: Morris on 05-21-2024 Platelets (Bld) [#/Vol] 139 10*3/uL Low 150-450 [facility] Comment on above: Order Comment: Performed By: #### L 500.4050, L501.9520, L100.0500 #### [facility] [address] [place], [address] Potassium measurementOrdered By: Dev Gutierrez on 05-21-2024 Potassium [Moles/Vol] 4.0 mmol/L Normal 3.5-5.1 [facility] Comment on above: Order Comment: Performed By: #### L 500.4050, L501.9520, L100.0500 #### [facility] [address] [place], [address] Serum anion gap measurementO rdered By: Dev Gutierrez on 05-21-2024 Anion gap [Moles/Vol] 6 mmol/L 5-15 [facility] Serum globulin measurementOr dered By: Dev Gutierrez on 05-21-2024 Globulin (S) [Mass/Vol] 2.9 g/dL Normal 2.2-4.2 [facility] Comment on above: Order Comment: Performed By: #### L 500.4050, L501.9520, L100.0500 #### [facility] [address] [place], [address] Serum or plasma alanine tovar otransferase (ALT) measurementOrdered By: Dev Gutierrez on 05-21-2024 ALT [Catalytic activity/Vol] 15 U/L Normal 13-56 [facility] Comment on above: Order Comment: Performed By: #### L 500.4050, L501.9520, L100.0500 #### [facility] [address] [place], [address] Serum or plasma albumin maude urement (mass/volume)Ordered By: Dev Gutierrez on 05-21-2024 Albumin [Mass/Vol] 3.1 g/dL Low 3.2-5.[address] [facility] Comment on above: Order Comment: Performed By: #### L 500.4050, L501.9520, L100.0500 #### [facility] Laboratory [address] [facility] [place], [address] Serum or plasma alkaline nilton sphatase measurementOrdered By: Dev Gutierrez on 05-21-2024 ALP [Catalytic activity/Vol] 105 U/L 45-117 [facility] Serum or plasma calcium maude urement (mass/volume)Ordered By: Dev Gutierrez on 05-21-2024 Calcium [Mass/Vol] 9.0 mg/dL 8.5-10.[address] [facility] Serum or plasma creatinine m easurement (mass/volume)Ordered By: Dev Gutierrez on 05-21-2024 Creatinine [Mass/Vol] 1.07 mg/dL High 0.55-1.02 [facility] Comment on above: The validity of the calculated GFR & GFRAA in patients over 70 years has not been determined. Clinical correlation is essential. Order Comment: Result Comment: The validity of the calculated GFR GFRAA in patients over 70 years has not been determined. Clinical correlation is essential. Performed By: #### L 500.4050, L501.9520, L100.0500 #### [facility] Laboratory [address] [place], [address] Serum or plasma urea nitroge n measurement (mass/volume)Ordered By: Dev Gutierrez on 05-21-2024 Urea nitrogen [Mass/Vol] 29 mg/dL High 7-18 [facility] Comment on above: Order Comment: Performed By: #### L 500.4050, L501.9520, L100.0500 #### [facility] Laboratory [address] [place], [address] Sodium levelOrdered By: Dev Gutierrez on 05-21-2024 Sodium [Moles/Vol] 142 mmol/L Normal 136-[address] [facility] Comment on above: Order Comment: Performed By: #### L 500.4050, L501.9520, L100.0500 #### [facility] Laboratory [address] [place], [address] TSH QnOrdered By: Dev washington on 05-21-2024 Thyroid Stimulating Hormone (TSH) 0.034 uIU/mL Low 0.358-3.740 [facility] Thyroid Stim Hormone (TSH)on 05-21-2024 TSH 0.034 uIU/mL Low 0.358-3.740 [facility] Comment on above: Order Comment: Performed By: #### L 500.4050, L501.9520, L100.0500 #### [facility] Laboratory [address] [place], [address] Total proteinOrdered By: Danielle Gutierrez on 05-21-2024 Protein [Mass/Vol] 6.0 g/dL Low 6.4-8.[address] [facility] White blood cell (WBC) count Ordered By: Dev Gutierrez on 05-21-2024 WBC (Bld) [#/Vol] 5.2 10*3/uL Normal 4.4-11.[address] [facility] Comment on above: Order Comment: Performed By: #### L 500.4050, L501.9520, L100.0500 #### [facility] Laboratory [address] [place], [address] Urinalysis, Completeon 05-18 EPI,SQUAMOUS 0-5 SEEN Normal 5-10 [facility] Comment on above: Order Comment: Performed By: #### L 100.0500, L500.2500 #### [facility] Laboratory [address] [place], [address] WBC 10-25 SEEN Normal 0-5 [facility] Comment on above: Order Comment: Performed By: #### L 100.0500, L500.2500 #### [facility] Laboratory [address] [place], [address] BACTERIA 0 SEEN Normal None Seen [facility] Comment on above: Order Comment: Performed By: #### L 100.0500, L500.2500 #### [facility] Laboratory [address] [place], [address] Mucus Ql (Urine sed) 0 SEEN Normal [facility] Comment on above: Order Comment: Performed By: #### L 100.0500, L500.2500 #### [facility] Laboratory [address] [place], [address] RBC 0 SEEN Normal 0-5 [facility] Comment on above: Order Comment: Performed By: #### L 100.0500, L500.2500 #### [facility] Laboratory [address] [place], [address] Bilirubin Test strip Ql (U)O rdered By: Dev Gutierrez on 05-17-2024 Bilirubin Ql (U) Negative Negative [facility] Epithelial cells.squamous LM Ql (Urine sed)Ordered By: Dev Gutierrez on 05-17-2024 Epithelial cells.squamous LM.HPF (Urine sed) [#/Area] 0 /[HPF] 5-10 [facility] Glucose Ql (U)Ordered By: Morris on 05-17-2024 Urine Glucose (UA) Normal mg/dl Normal [facility] Ketones Test strip Ql (U)Ord ered By: Dev Gutierrez on 05-17-2024 Ketones Ql (U) Negative Negative [facility] Microscopic analysis of urin e for red blood cells (RBC)Ordered By: Dev Gutierrez on 05-17-2024 Urine RBC 0 SEEN /hpf 0-5 [facility] Mucus LM Ql (Urine sed)Order ed By: Dev Gutierrez on 05-17-2024 Mucus Ql (Urine sed) 0 SEEN /hpf [facility] Nitrite Test strip Ql (U)Ord ered By: Dev Gutierrez on 05-17-2024 Nitrite Ql (U) Negative Negative [facility] Protein Test strip Ql (U)Ord ered By: Dev Gutierrez on 05-17-2024 Protein Ql (U) 15 mg/dl High Negative [facility] Urine blood detectionOrdered By: Dev Gutierrez on 05-17-2024 Urine Occult Blood 10 /ul High Negative [facility] Urine clarityOrdered By: Danielle Gutierrez on 05-17-2024 Clarity (U) Sl. Cloudy Clear [facility] Urine color determinationOrd ered By: Dev Gutierrez on 05-17-2024 Color (U) Yellow Yellow [facility] Urine leukocyte esterase det ection by dipstickOrdered By: Dev Gutierrez on 05-17-2024 Leukocyte esterase Test strip Ql (U) 500 /ul High Negative [facility] Urine pHOrdered By: Dev rodriguez on 05-17-2024 pH (U) 6.0 [pH] 5.0 - 8.0 [facility] Urine sediment bacteria coun t by microscopy (number/high power field)Ordered By: Dev Gutierrez on 05-17-2024 Bacteria LM.HPF (Urine sed) [#/Area] 0 /[HPF] None Seen [facility] Urine specific gravity measu rementOrdered By: Dev Gutierrez on 05-17-2024 Specific gravity (U) [Rel density] 1.010 1.002-1.030 [facility] Urobilinogen Ql (U)Ordered B y: Dev Gutierrez on 05-17-2024 Urine Urobilinogen Normal mg/dl Normal [facility] White blood cell countOrdere d By: Dev Gutierrez on 05-17-2024 Urine WBC 10-25 SEEN /hpf 0-5 [facility] Abdomen Single Viewon 2023 Abdomen Single View [facility] Imaging Services [address], [place] [address] Abdomen Single View MR#: [id number] Acct: [id number] Name: LEIGHANN CROWDER Rep #: [id number] : 1940 F 84 From: Chey dixon MD 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 TECHNIQUE: XR Abdomen 1 View. [...] EST , CC: Dr. Rachele Velasquez MD [employer] Supervisor: Signed Normal [facility] CBC-Complete Blood Cnt No Di ffon 04-23-2024 Erythrocyte distribution width (RBC) [Ratio] 13.8 % Normal 11.6-14.6 [facility] Comment on above: Order Comment: Performed By: #### L 100.0500 #### [facility] Laboratory [address] [place], [address] Hematocrit (Bld) [Volume fraction] 30.1 % Low 37-47 [facility] Comment on above: Order Comment: Performed By: #### L 100.0500 #### [facility] Laboratory [address] [place], [address] Hemoglobin (Bld) [Mass/Vol] 9.8 g/dL Low 12.0-15.0 [facility] Comment on above: Order Comment: Performed By: #### L 100.0500 #### [facility] Laboratory [address] [place], [address] MCH (RBC) [Entitic mass] 30.8 pg Normal 27.0-32.0 [facility] Comment on above: Order Comment: Performed By: #### L 100.0500 #### [facility] Laboratory [address] [place], [address] MCHC (RBC) [Mass/Vol] 32.6 g/dL Normal 32-36 [facility] Comment on above: Order Comment: Performed By: #### L 100.0500 #### [facility] Laboratory [address] [place], [address] MCV (RBC) [Entitic vol] 94.7 fL Normal 81-99 [facility] Comment on above: Order Comment: Performed By: #### L 100.0500 #### [facility] Laboratory [address] [place], [address] Platelet mean volume (Bld) [Entitic vol] 9.9 fL Normal 6.2-12.0 [facility] Comment on above: Order Comment: - Performed By: #### L 100.0500 #### [facility] Laboratory [address] [place], [address] Platelets (Bld) [#/Vol] 152 10*3/uL Normal 150-450 [facility] Comment on above: Order Comment: - Performed By: #### L 100.0500 #### [facility] Laboratory [address] [place], [address] RBC (Bld) [#/Vol] 3.18 10*6/uL Low 4.2-5.4 [facility] Comment on above: Order Comment: - Performed By: #### L 100.0500 #### [facility] Laboratory [address] [place], [address] RDW SD 47.7 fl High 35.1-43.9 [facility] Comment on above: Order Comment: - Performed By: #### L 100.0500 #### [facility] Laboratory [address] [place], [address] WBC (Bld) [#/Vol] 4.7 10*3/uL Normal 4.4-11.[address] [facility] Comment on above: Order Comment: Performed By: #### L 100.0500 #### [facility] [address] [place], [address] Erythrocyte distribution wid th (RBC) [Ratio]Ordered By: Dev Gutierrez on 04-23-2024 Erythrocyte distribution width (RBC) [Entitic vol] 47.7 fL High 35.1-43.9 [facility] Erythrocyte distribution wid th ratioOrdered By: Dev Gutierrez on 04-23-2024 Erythrocyte distribution width (RBC) [Ratio] 13.8 % 11.6-14.6 [facility] Hematocrit Auto (Bld) [Volum e fraction]Ordered By: Dev Gutierrez on 04-23-2024 Hematocrit (Bld) [Volume fraction] 30.1 % Low 37-47 [facility] Hemoglobin measurementOrdere d By: Dev Gutierrez on 04-23-2024 Hemoglobin (Bld) [Mass/Vol] 9.8 g/dL Low 12.0-15.0 [facility] MCV (mean corpuscular volume ) determinationOrdered By: Dev Gutierrez on 04-23-2024 MCV (RBC) [Entitic vol] 94.7 fL 81-99 [facility] Mean corpuscular hemoglobin (MCH) determinationOrdered By: Dev Gutierrez on 04-23-2024 MCH (RBC) [Entitic mass] 30.8 pg 27.0-32.0 [facility] Mean corpuscular hemoglobin concentration (MCHC) determinationOrdered By: Dev Gutierrez on 04-23-2024 MCHC (RBC) [Mass/Vol] 32.6 g/dL 32-36 [facility] Mean platelet volume determi nationOrdered By: Dev Gutierrez on 04-23-2024 Platelet mean volume (Bld) [Entitic vol] 9.9 fL 6.2-12.0 [facility] Platelet countOrdered By: Morris on 04-23-2024 Platelets (Bld) [#/Vol] 152 10*3/uL 150-450 [facility] RBC Auto (Bld) [#/Vol]Ordere d By: Dev Gutierrez on 04-23-2024 RBC (Bld) [#/Vol] 3.18 10*6/uL Low 4.2-5.4 [facility] White blood cell (WBC) count Ordered By: Dev Gutierrez on 04-23-2024 WBC (Bld) [#/Vol] 4.7 10*3/uL 4.4-11.[address] [facility] Thyroid Stim Hormone (TSH)on 04-06-2024 TSH 0.024 uIU/mL Low 0.358-3.740 [facility] Comment on above: Order Comment: 209-1 Performed By: #### L 100.0500, L500.2500 #### [facility] Laboratory [address] [place], [address] Basic Metabolic Profile (BMP )on 03-20-2024 BUN/CRE 27.2 RATIO High 10-20 [facility] Comment on above: Order Comment: Performed By: #### L 500.4050, L501.9520, L100.0500 #### [facility] [address] [place], [address] CA,Total 9.2 mg/dL Normal 8.5-10.1 [facility] Comment on above: Order Comment: Performed By: #### L 500.4050, L501.9520, L100.0500 #### [facility] Laboratory [address] [place], [address] Chloride [Moles/Vol] 108 mmol/L High 98-107 [facility] Comment on above: Order Comment: Performed By: #### L 500.4050, L501.9520, L100.0500 #### [facility] Laboratory [address] [place], [address] CO2 [Moles/Vol] 25.0 mmol/L Normal 21.0-32.0 [facility] Comment on above: Order Comment: Performed By: #### L 500.4050, L501.9520, L100.0500 #### [facility] Laboratory [address] [place], [address] Creatinine [Mass/Vol] 0.99 mg/dL Normal 0.55-1.02 [facility] Comment on above: Order Comment: Result Comment: The validity of the calculated GFR GFRAA in patients over 70 years has not been determined. Clinical correlation is essential. Performed By: #### L 500.4050, L501.9520, L100.0500 #### [facility] [address] [place], [address] EST GFR - AA 69 mL/min Normal >60 [facility] Comment on above: Order Comment: Result Comment: Afri can Taiwanese GFR Calc Performed By: #### L 500.4050, L501.9520, L100.0500 #### [facility] [address] [place], [address] GAP 8 Normal 5-15 [facility] Comment on above: Order Comment: Performed By: #### L 500.4050, L501.9520, L100.0500 #### [facility] [address] [place], [address] GFR/1.73 sq M.predicted among non-blacks MDRD (S/P/Bld) [Vol rate/Area] 57 mL/min/{1.73_m2} Low >60 [facility] Comment on above: Order Comment: Result Comment: Non- GFR Calc Performed By: #### L 500.4050, L501.9520, L100.0500 #### [facility] [address] [place], [address] Glucose [Mass/Vol] 99 mg/dL Normal 74-[address] [facility] Comment on above: Order Comment: Performed By: #### L 500.4050, L501.9520, L100.0500 #### [facility] [address] [place], [address] Potassium [Moles/Vol] 4.1 mmol/L Normal 3.5-5.1 [facility] Comment on above: Order Comment: Performed By: #### L 500.4050, L501.9520, L100.0500 #### [facility] [address] [place], [address] Sodium [Moles/Vol] 141 mmol/L Normal 136-[address] [facility] Comment on above: Order Comment: Performed By: #### L 500.4050, L501.9520, L100.0500 #### [facility] [address] [place], [address] Urea nitrogen [Mass/Vol] 27 mg/dL High 7-18 [facility] Comment on above: Order Comment: - Performed By: #### L 500.4050, L501.9520, L100.0500 #### [facility] [address] [place], [address] Potassiumon 03-09-2024 Potassium [Moles/Vol] 4.4 mmol/L Normal 3.5-5.1 [facility] Comment on above: Order Comment: - Performed By: #### L 100.0500, L500.2500 #### [facility] [address] [place], [address] Potassiumon 03-08-2024 Potassium [Moles/Vol] 4.6 mmol/L Normal 3.5-5.1 [facility] Comment on above: Order Comment: Performed By: #### L 500.4050, L501.9520, L100.0500 #### [facility] [address] [place], [address] Potassiumon 03-07-2024 Potassium [Moles/Vol] 5.1 mmol/L Normal 3.5-5.1 [facility] Comment on above: Order Comment: - Performed By: #### L 100.0500, L500.2500 #### [facility] [address] [place], [address] Comprehensive Metabolic Prof ilon 03-06-2024 Albumin [Mass/Vol] 3.1 g/dL Low 3.2-5.[address] [facility] Comment on above: Order Comment: Performed By: #### L 500.4050, L501.9520, L100.0500 #### [facility] [address] [place], [address] Albumin/Globulin [Mass ratio] 1.1 {ratio} Normal 0.9-2.4 [facility] Comment on above: Order Comment: - Performed By: #### L 500.4050, L501.9520, L100.0500 #### [facility] [address] [place], [address] ALK P 106 U/L Normal 45-117 [facility] Comment on above: Order Comment: - Performed By: #### L 500.4050, L501.9520, L100.0500 #### [facility] [address] [place], [address] ALT [Catalytic activity/Vol] 11 U/L Low 13-56 [facility] Comment on above: Order Comment: - Performed By: #### L 500.4050, L501.9520, L100.0500 #### [facility] [address] [place], [address] AST [Catalytic activity/Vol] 12 U/L Low 15-37 [facility] Comment on above: Order Comment: - Performed By: #### L 500.4050, L501.9520, L100.0500 #### [facility] [address] [place], [address] Bilirubin [Mass/Vol] 0.80 mg/dL Normal 0.20-1.00 [facility] Comment on above: Order Comment: Result Comment: For patients on eltrombopag therapy, use of Dimension [place] TBIL is not recommended. Performed By: #### L 500.4050, L501.9520, L100.0500 #### [facility] [address] [place], [address] BUN/CRE 22.4 RATIO High 10-20 [facility] Comment on above: Order Comment: - Performed By: #### L 500.4050, L501.9520, L100.0500 #### [facility] [address] [place], [address] CA,Total 9.3 mg/dL Normal 8.5-10.1 [facility] Comment on above: Order Comment: Performed By: #### L 500.4050, L501.9520, L100.0500 #### [facility] [address] [place], [address] Chloride [Moles/Vol] 109 mmol/L High 98-107 [facility] Comment on above: Order Comment: Performed By: #### L 500.4050, L501.9520, L100.0500 #### [facility] [address] [place], [address] CO2 [Moles/Vol] 26.0 mmol/L Normal 21.0-32.0 [facility] Comment on above: Order Comment: Performed By: #### L 500.4050, L501.9520, L100.0500 #### [facility] [address] [place], [address] Creatinine [Mass/Vol] 1.25 mg/dL High 0.55-1.02 [facility] Comment on above: Order Comment: Result Comment: The validity of the calculated GFR GFRAA in patients over 70 years has not been determined. Clinical correlation is essential. Performed By: #### L 500.4050, L501.9520, L100.0500 #### [facility] [address] [place], [address] EST GFR - AA 53 mL/min Low >60 [facility] Comment on above: Order Comment: Result Comment: Afri can Taiwanese GFR Calc Performed By: #### L 500.4050, L501.9520, L100.0500 #### [facility] [address] [place], [address] GAP 5 Normal 5-15 [facility] Comment on above: Order Comment: Performed By: #### L 500.4050, L501.9520, L100.0500 #### [facility] [address] [place], [address] GFR/1.73 sq M.predicted among non-blacks MDRD (S/P/Bld) [Vol rate/Area] 44 mL/min/{1.73_m2} Low >60 [facility] Comment on above: Order Comment: Result Comment: Non- GFR Calc Performed By: #### L 500.4050, L501.9520, L100.0500 #### [facility] [address] [place], [address] Globulin (S) [Mass/Vol] 2.8 g/dL Normal 2.2-4.2 [facility] Comment on above: Order Comment: Performed By: #### L 500.4050, L501.9520, L100.0500 #### [facility] [address] [place], [address] Glucose [Mass/Vol] 89 mg/dL Normal 74-[address] [facility] Comment on above: Order Comment: Performed By: #### L 500.4050, L501.9520, L100.0500 #### [facility] [address] [place], [address] Potassium [Moles/Vol] 5.5 mmol/L High 3.5-5.1 [facility] Comment on above: Order Comment: Performed By: #### L 500.4050, L501.9520, L100.0500 #### [facility] [address] [place], [address] Sodium [Moles/Vol] 139 mmol/L Normal 136-[address] [facility] Comment on above: Order Comment: Performed By: #### L 500.4050, L501.9520, L100.0500 #### [facility] [address] [place], [address] T PROT 5.9 g/dL Low 6.4-8.2 [facility] Comment on above: Order Comment: - Performed By: #### L 500.4050, L501.9520, L100.0500 #### [facility] [address] [place], [address] Urea nitrogen [Mass/Vol] 28 mg/dL High 7-18 [facility] Comment on above: Order Comment: Performed By: #### L 500.4050, L501.9520, L100.0500 #### [facility] [address] [place], [address] Magnesiumon 03-06-2024 Magnesium [Mass/Vol] 1.8 mg/dL Normal 1.6-2.6 [facility] Comment on above: Order Comment: Performed By: #### L 500.4050, L501.9520, L100.0500 #### [facility] [address] [place], [address] L5000.0012on 03-03-2024 Vitamin B12 Normal [facility] Comment on above: Order Comment: Result Comment: TEST RESULTS LIMITS Vitamin B12 832 pg/mL [id number] TESTING PERFORMED AT [facility]. ORIGINAL REPORT ON FILE IN LAB CONTAINS ADDITIONAL TEST SITE INFORMATION. Performed By: #### L 100.0500, L500.2500 #### [facility] [address] [place], [address] CBC-Complete Blood Cnt No Di ffon 02-27-2024 Erythrocyte distribution width (RBC) [Ratio] 13.0 % Normal 11.6-14.6 [facility] Comment on above: Order Comment: Performed By: #### L 100.0500, L500.2500 #### [facility] [address] [place], [address] Hematocrit (Bld) [Volume fraction] 27.7 % Low 37-47 [facility] Comment on above: Order Comment: Performed By: #### L 100.0500, L500.2500 #### [facility] [address] [place], [address] Hemoglobin (Bld) [Mass/Vol] 8.8 g/dL Low 12.0-15.0 [facility] Comment on above: Order Comment: Performed By: #### L 100.0500, L500.2500 #### [facility] [address] [place], [address] MCH (RBC) [Entitic mass] 30.4 pg Normal 27.0-32.0 [facility] Comment on above: Order Comment: Performed By: #### L 100.0500, L500.2500 #### [facility] [address] [place], [address] MCHC (RBC) [Mass/Vol] 31.8 g/dL Low 32-36 [facility] Comment on above: Order Comment: Performed By: #### L 100.0500, L500.2500 #### [facility] [address] [place], [address] MCV (RBC) [Entitic vol] 95.8 fL Normal 81-99 [facility] Comment on above: Order Comment: - Performed By: #### L 100.0500, L500.2500 #### [facility] [address] [place], [address] Platelet mean volume (Bld) [Entitic vol] 9.9 fL Normal 6.2-12.0 [facility] Comment on above: Order Comment: - Performed By: #### L 100.0500, L500.2500 #### [facility] [address] [place], [address] Platelets (Bld) [#/Vol] 134 10*3/uL Low 150-450 [facility] Comment on above: Order Comment: - Performed By: #### L 100.0500, L500.2500 #### [facility] [address] [place], [address] RBC (Bld) [#/Vol] 2.89 10*6/uL Low 4.2-5.4 [facility] Comment on above: Order Comment: - Performed By: #### L 100.0500, L500.2500 #### [facility] [address] [place], [address] RDW SD 46.1 fl High 35.1-43.9 [facility] Comment on above: Order Comment: - Performed By: #### L 100.0500, L500.2500 #### [facility] [address] [place], [address] WBC (Bld) [#/Vol] 4.9 10*3/uL Normal 4.4-11.[address] [facility] Comment on above: Order Comment: - Performed By: #### L 100.0500, L500.2500 #### [facility] [address] [place], [address] Comprehensive Metabolic Prof ilon 02-27-2024 Albumin [Mass/Vol] 3.1 g/dL Low 3.2-5.[address] [facility] Comment on above: Order Comment: Performed By: #### L 100.0500, L500.2500 #### [facility] [address] [place], [address] Albumin/Globulin [Mass ratio] 1.1 {ratio} Normal 0.9-2.4 [facility] Comment on above: Order Comment: Performed By: #### L 100.0500, L500.2500 #### [facility] [address] [place], [place], [address] ALK P 94 U/L Normal 45-117 [facility] Comment on above: Order Comment: Performed By: #### L 100.0500, L500.2500 #### [facility] [address] [place], [address] ALT [Catalytic activity/Vol] 12 U/L Low 13-56 [facility] Comment on above: Order Comment: Performed By: #### L 100.0500, L500.2500 #### [facility] [address] [place], [address] AST [Catalytic activity/Vol] 14 U/L Low 15-37 [facility] Comment on above: Order Comment: Performed By: #### L 100.0500, L500.2500 #### [facility] [address] [place], [address] Bilirubin [Mass/Vol] 0.80 mg/dL Normal 0.20-1.00 [facility] Comment on above: Order Comment: Result Comment: For patients on eltrombopag therapy, use of Dimension [place] TBIL is not recommended. Performed By: #### L 100.0500, L500.2500 #### [facility] [address] [place], [address] BUN/CRE 24.0 RATIO High 10-20 [facility] Comment on above: Order Comment: Performed By: #### L 100.0500, L500.2500 #### [facility] [address] [place], [address] CA,Total 8.9 mg/dL Normal 8.5-10.1 [facility] Comment on above: Order Comment: Performed By: #### L 100.0500, L500.2500 #### [facility] [address] [place], [address] Chloride [Moles/Vol] 109 mmol/L High 98-107 [facility] Comment on above: Order Comment: Performed By: #### L 100.0500, L500.2500 #### [facility] [address] [place], [address] CO2 [Moles/Vol] 25.0 mmol/L Normal 21.0-32.0 [facility] Comment on above: Order Comment: Performed By: #### L 100.0500, L500.2500 #### [facility] [address] [place], [address] Creatinine [Mass/Vol] 1.29 mg/dL High 0.55-1.02 [facility] Comment on above: Order Comment: Result Comment: The validity of the calculated GFR GFRAA in patients over 70 years has not been determined. Clinical correlation is essential. Performed By: #### L 100.0500, L500.2500 #### [facility] [address] [place], [address] EST GFR - AA 51 mL/min Low >60 [facility] Comment on above: Order Comment: Result Comment: Afri can Taiwanese GFR Calc Performed By: #### L 100.0500, L500.2500 #### [facility] [address] [place], [address] GAP 6 Normal 5-15 [facility] Comment on above: Order Comment: Performed By: #### L 100.0500, L500.2500 #### [facility] [address] [place], [address] GFR/1.73 sq M.predicted among non-blacks MDRD (S/P/Bld) [Vol rate/Area] 42 mL/min/{1.73_m2} Low >60 [facility] Comment on above: Order Comment: Result Comment: Non- GFR Calc Performed By: #### L 100.0500, L500.2500 #### [facility] [address] [place], [address] Globulin (S) [Mass/Vol] 2.7 g/dL Normal 2.2-4.2 [facility] Comment on above: Order Comment: Performed By: #### L 100.0500, L500.2500 #### [facility] [address] [place], [address] Glucose [Mass/Vol] 95 mg/dL Normal 74-[address] [facility] Comment on above: Order Comment: Performed By: #### L 100.0500, L500.2500 #### [facility] [address] [place], [address] Potassium [Moles/Vol] 4.8 mmol/L Normal 3.5-5.1 [facility] Comment on above: Order Comment: Performed By: #### L 100.0500, L500.2500 #### [facility] [address] [place], [address] Sodium [Moles/Vol] 140 mmol/L Normal 136-[address] [facility] Comment on above: Order Comment: Performed By: #### L 100.0500, L500.2500 #### [facility] [address] [place], [address] T PROT 5.8 g/dL Low 6.4-8.2 [facility] Comment on above: Order Comment: Performed By: #### L 100.0500, L500.2500 #### [facility] [address] [place], [address] Urea nitrogen [Mass/Vol] 31 mg/dL High 7-18 [facility] Comment on above: Order Comment: Performed By: #### L 100.0500, L500.2500 #### [facility] [address] [place], [address] Thyroid Stim Hormone (TSH)on 02-27-2024 TSH 0.011 uIU/mL Low 0.358-3.740 [facility] Comment on above: Order Comment: Performed By: #### L 100.0500, L500.2500 #### [facility] [address] [place], [address] Basic Metabolic Profile (BMP )on 01-23-2024 BUN/CRE 26.7 RATIO High 10-20 [facility] Comment on above: Order Comment: Performed By: #### L 100.0500, L500.2500 #### [facility] [address] [place], [address] CA,Total 9.2 mg/dL Normal 8.5-10.1 [facility] Comment on above: Order Comment: Performed By: #### L 100.0500, L500.2500 #### [facility] [address] [place], [address] Chloride [Moles/Vol] 106 mmol/L Normal 98-107 [facility] Comment on above: Order Comment: Performed By: #### L 100.0500, L500.2500 #### [facility] [address] [place], [address] CO2 [Moles/Vol] 27.0 mmol/L Normal 21.0-32.0 [facility] Comment on above: Order Comment: Performed By: #### L 100.0500, L500.2500 #### [facility] [address] [place], [address] Creatinine [Mass/Vol] 1.01 mg/dL Normal 0.55-1.02 [facility] Comment on above: Order Comment: Result Comment: The validity of the calculated GFR GFRAA in patients over 70 years has not been determined. Clinical correlation is essential. Performed By: #### L 100.0500, L500.2500 #### [facility] [address] [place], [address] EST GFR - AA 67 mL/min Normal >60 [facility] Comment on above: Order Comment: Result Comment: Afri can Taiwanese GFR Calc Performed By: #### L 100.0500, L500.2500 #### [facility] [address] [place], [address] GAP 5 Normal 5-15 [facility] Comment on above: Order Comment: Performed By: #### L 100.0500, L500.2500 #### [facility] [address] [place], [address] GFR/1.73 sq M.predicted among non-blacks MDRD (S/P/Bld) [Vol rate/Area] 56 mL/min/{1.73_m2} Low >60 [facility] Comment on above: Order Comment: Result Comment: Non- GFR Calc Performed By: #### L 100.0500, L500.2500 #### [facility] [address] [place], [address] Glucose [Mass/Vol] 94 mg/dL Normal 74-[address] [facility] Comment on above: Order Comment: Performed By: #### L 100.0500, L500.2500 #### [facility] [address] [place], [address] Potassium [Moles/Vol] 4.4 mmol/L Normal 3.5-5.1 [facility] Comment on above: Order Comment: Performed By: #### L 100.0500, L500.2500 #### [facility] [address] [place], [address] Sodium [Moles/Vol] 138 mmol/L Normal 136-[address] [facility] Comment on above: Order Comment: Performed By: #### L 100.0500, L500.2500 #### [facility] [address] [place], [address] Urea nitrogen [Mass/Vol] 27 mg/dL High 7-18 [facility] Comment on above: Order Comment: Performed By: #### L 100.0500, L500.2500 #### [facility] [address] [place], [address] Urine Cultureon 01-19-2024 URC Culture exhibits no growth. Normal [facility] Comment on above: Performed By: #### L 500.4050, L501.9520, L100.0500 #### [facility] [address] [place], [address] CBC-Complete Blood Cnt No Di ffon 01-18-2024 Erythrocyte distribution width (RBC) [Ratio] 13.3 % Normal 11.6-14.6 [facility] Comment on above: Order Comment: Performed By: #### L 500.4050, L501.9520, L100.0500 #### [facility] [address] [place], [address] Hematocrit (Bld) [Volume fraction] 29.8 % Low 37-47 [facility] Comment on above: Order Comment: Performed By: #### L 500.4050, L501.9520, L100.0500 #### [facility] [address] [place], [address] Hemoglobin (Bld) [Mass/Vol] 9.6 g/dL Low 12.0-15.0 [facility] Comment on above: Order Comment: Performed By: #### L 500.4050, L501.9520, L100.0500 #### [facility] [address] [place], [address] MCH (RBC) [Entitic mass] 30.9 pg Normal 27.0-32.0 [facility] Comment on above: Order Comment: Performed By: #### L 500.4050, L501.9520, L100.0500 #### [facility] [address] [place], [address] MCHC (RBC) [Mass/Vol] 32.2 g/dL Normal 32-36 [facility] Comment on above: Order Comment: Performed By: #### L 500.4050, L501.9520, L100.0500 #### [facility] [address] [place], [address] MCV (RBC) [Entitic vol] 95.8 fL Normal 81-99 [facility] Comment on above: Order Comment: Performed By: #### L 500.4050, L501.9520, L100.0500 #### [facility] [address] [place], [address] Platelet mean volume (Bld) [Entitic vol] 9.7 fL Normal 6.2-12.0 [facility] Comment on above: Order Comment: Performed By: #### L 500.4050, L501.9520, L100.0500 #### [facility] [address] [place], [address] Platelets (Bld) [#/Vol] 142 10*3/uL Low 150-450 [facility] Comment on above: Order Comment: Performed By: #### L 500.4050, L501.9520, L100.0500 #### [facility] [address] [place], [address] RBC (Bld) [#/Vol] 3.11 10*6/uL Low 4.2-5.4 [facility] Comment on above: Order Comment: Performed By: #### L 500.4050, L501.9520, L100.0500 #### [facility] [address] [place], [address] RDW SD 46.8 fl High 35.1-43.9 [facility] Comment on above: Order Comment: Performed By: #### L 500.4050, L501.9520, L100.0500 #### [facility] [address] [place], [address] WBC (Bld) [#/Vol] 4.8 10*3/uL Normal 4.4-11.[address] [facility] Comment on above: Order Comment: Performed By: #### L 500.4050, L501.9520, L100.0500 #### [facility] [address] [place], [address] Ferritinon 01-18-2024 Ferritin [Mass/Vol] 62 ng/mL Normal 8-252 [facility] Comment on above: Order Comment: Performed By: #### L 500.4050, L501.9520, L100.0500 #### [facility] [address] [place], [address] Folates, (Folic Acid)on FOLATES 14.40 ng/mL Normal 3.1-55.4 [facility] Comment on above: Order Comment: Performed By: #### L 500.4050, L501.9520, L100.0500 #### [facility] [address] [place], [address] Iron+Iron Binding Capacityon 01-18-2024 Iron [Mass/Vol] 50 ug/dL Normal 50-170 [facility] Comment on above: Order Comment: - Performed By: #### L 500.4050, L501.9520, L100.0500 #### [facility] [address] [place], [address] IRON SATURATION 16.9 Normal 15.0-55.0 [facility] Comment on above: Order Comment: - Performed By: #### L 500.4050, L501.9520, L100.0500 #### [facility] [address] [place], [address] TIBC 295 ug/dL Normal 250-450 [facility] Comment on above: Order Comment: Performed By: #### L 500.4050, L501.9520, L100.0500 #### [facility] [address] [place], [address] Urinalysis, Completeon 01-17 BACTERIA 0 SEEN Normal None Seen [facility] Comment on above: Order Comment: - Performed By: #### L 500.4050, L501.9520, L100.0500 #### [facility] [address] [place], [address] EPI,SQUAMOUS 0 SEEN Normal 5-10 [facility] Comment on above: Order Comment: - Performed By: #### L 500.4050, L501.9520, L100.0500 #### [facility] [address] [place], [address] Mucus Ql (Urine sed) 0 SEEN Normal [facility] Comment on above: Order Comment: - Performed By: #### L 500.4050, L501.9520, L100.0500 #### [facility] [address] [place], [address] RBC 0 SEEN Normal 0-5 [facility] Comment on above: Order Comment: - Performed By: #### L 500.4050, L501.9520, L100.0500 #### [facility] [address] [place], [address] WBC 0 SEEN Normal 0-5 [facility] Comment on above: Order Comment: Performed By: #### L 500.4050, L501.9520, L100.0500 #### [facility] [address] [place], [address] Vitamin B12on 01-18-2024 Cobalamin (Vitamin B12) [Mass/Vol] 768 pg/mL Normal 211-911 [facility] Comment on above: Order Comment: Performed By: #### L 500.4050, L501.9520, L100.0500 #### [facility] [address] [place], [address] Basic Metabolic Profile (BMP )on 01-17-2024 BUN/CRE 24.1 RATIO High 10-20 [facility] Comment on above: Order Comment: Performed By: #### L 100.0500, L500.2500 #### [facility] [address] [place], [address] CA,Total 9.6 mg/dL Normal 8.5-10.1 [facility] Comment on above: Order Comment: Performed By: #### L 100.0500, L500.2500 #### [facility] [address] [place], [address] Chloride [Moles/Vol] 105 mmol/L Normal 98-107 [facility] Comment on above: Order Comment: - Performed By: #### L 100.0500, L500.2500 #### [facility] [address] [place], [address] CO2 [Moles/Vol] 27.0 mmol/L Normal 21.0-32.0 [facility] Comment on above: Order Comment: Performed By: #### L 100.0500, L500.2500 #### [facility] [address] [place], [address] Creatinine [Mass/Vol] 1.08 mg/dL High 0.55-1.02 [facility] Comment on above: Order Comment: Result Comment: The validity of the calculated GFR GFRAA in patients over 70 years has not been determined. Clinical correlation is essential. Performed By: #### L 100.0500, L500.2500 #### [facility] [address] [place], [address] EST GFR - AA 62 mL/min Normal >60 [facility] Comment on above: Order Comment: Result Comment: Afri can Taiwanese GFR Calc Performed By: #### L 100.0500, L500.2500 #### [facility] [address] [place], [address] GAP 6 Normal 5-15 [facility] Comment on above: Order Comment: Performed By: #### L 100.0500, L500.2500 #### [facility] [address] [place], [address] GFR/1.73 sq M.predicted among non-blacks MDRD (S/P/Bld) [Vol rate/Area] 52 mL/min/{1.73_m2} Low >60 [facility] Comment on above: Order Comment: Result Comment: Non- GFR Calc Performed By: #### L 100.0500, L500.2500 #### [facility] [address] [place], [address] Glucose [Mass/Vol] 96 mg/dL Normal 74-[address] [facility] Comment on above: Order Comment: - Performed By: #### L 100.0500, L500.2500 #### [facility] [address] [place], [address] Potassium [Moles/Vol] 4.9 mmol/L Normal 3.5-5.1 [facility] Comment on above: Order Comment: - Performed By: #### L 100.0500, L500.2500 #### [facility] [address] [place], [address] Sodium [Moles/Vol] 138 mmol/L Normal 136-[address] [facility] Comment on above: Order Comment: - Performed By: #### L 100.0500, L500.2500 #### [facility] [address] [place], [address] Urea nitrogen [Mass/Vol] 26 mg/dL High 7-18 [facility] Comment on above: Order Comment: - Performed By: #### L 100.0500, L500.2500 #### [facility] [address] [place], [address] CBC-Complete Blood Cnt No Di ffon 01-17-2024 Erythrocyte distribution width (RBC) [Ratio] 13.2 % Normal 11.6-14.6 [facility] Comment on above: Order Comment: - Performed By: #### L 100.0500, L500.2500 #### [facility] [address] [place], [address] Hematocrit (Bld) [Volume fraction] 28.0 % Low 37-47 [facility] Comment on above: Order Comment: - Performed By: #### L 100.0500, L500.2500 #### [facility] [address] [place], [address] Hemoglobin (Bld) [Mass/Vol] 8.8 g/dL Low 12.0-15.0 [facility] Comment on above: Order Comment: - Performed By: #### L 100.0500, L500.2500 #### [facility] [address] [place], [address] MCH (RBC) [Entitic mass] 30.8 pg Normal 27.0-32.0 [facility] Comment on above: Order Comment: - Performed By: #### L 100.0500, L500.2500 #### [facility] [address] [place], [address] MCHC (RBC) [Mass/Vol] 31.4 g/dL Low 32-36 [facility] Comment on above: Order Comment: Performed By: #### L 100.0500, L500.2500 #### [facility] [address] [place], [address] MCV (RBC) [Entitic vol] 97.9 fL Normal 81-99 [facility] Comment on above: Order Comment: Performed By: #### L 100.0500, L500.2500 #### [facility] [address] [place], [address] Platelet mean volume (Bld) [Entitic vol] 10.1 fL Normal 6.2-12.0 [facility] Comment on above: Order Comment: - Performed By: #### L 100.0500, L500.2500 #### [facility] [address] [place], [address] Platelets (Bld) [#/Vol] 122 10*3/uL Low 150-450 [facility] Comment on above: Order Comment: - Performed By: #### L 100.0500, L500.2500 #### [facility] [address] [place], [address] RBC (Bld) [#/Vol] 2.86 10*6/uL Low 4.2-5.4 [facility] Comment on above: Order Comment: Performed By: #### L 100.0500, L500.2500 #### [facility] [address] [place], [address] RDW SD 47.1 fl High 35.1-43.9 [facility] Comment on above: Order Comment: Performed By: #### L 100.0500, L500.2500 #### [facility] [address] [place], [address] WBC (Bld) [#/Vol] 3.6 10*3/uL Low 4.4-11.[address] [facility] Comment on above: Order Comment: Performed By: #### L 100.0500, L500.2500 #### [facility] [address] [place], [address] Urine Cultureon 12-21-2023 URC Below infection level. Mixed Gram Positive Organisms [place] Count 1000-10,000 MIXC Mixed contaminants. Submit a new specimen if indicated. Normal [facility] Comment on above: Performed By: #### M 100.2200, L400.0001 #### [facility] [address] [place], [address] CBC-Complete Blood Cnt No Di ffon 12-20-2023 Erythrocyte distribution width (RBC) [Ratio] 13.4 % Normal 11.6-14.6 [facility] Comment on above: Order Comment: Performed By: #### L 100.0500, L500.2500 #### [facility] [address] [place], [address] Hematocrit (Bld) [Volume fraction] 31.6 % Low 37-47 [facility] Comment on above: Order Comment: Performed By: #### L 100.0500, L500.2500 #### [facility] [address] [place], [address] Hemoglobin (Bld) [Mass/Vol] 10.0 g/dL Low 12.0-15.0 [facility] Comment on above: Order Comment: Performed By: #### L 100.0500, L500.2500 #### [facility] [address] [place], [address] MCH (RBC) [Entitic mass] 30.7 pg Normal 27.0-32.0 [facility] Comment on above: Order Comment: Performed By: #### L 100.0500, L500.2500 #### [facility] [address] [place], [address] MCHC (RBC) [Mass/Vol] 31.6 g/dL Low 32-36 [facility] Comment on above: Order Comment: Performed By: #### L 100.0500, L500.2500 #### [facility] [address] [place], [address] MCV (RBC) [Entitic vol] 96.9 fL Normal 81-99 [facility] Comment on above: Order Comment: Performed By: #### L 100.0500, L500.2500 #### [facility] [address] [place], [address] Platelet mean volume (Bld) [Entitic vol] 10.0 fL Normal 6.2-12.0 [facility] Comment on above: Order Comment: Performed By: #### L 100.0500, L500.2500 #### [facility] [address] [place], [address] Platelets (Bld) [#/Vol] 142 10*3/uL Low 150-450 [facility] Comment on above: Order Comment: Performed By: #### L 100.0500, L500.2500 #### [facility] [address] [place], [address] RBC (Bld) [#/Vol] 3.26 10*6/uL Low 4.2-5.4 [facility] Comment on above: Order Comment: - Performed By: #### L 100.0500, L500.2500 #### [facility] [address] [place], [address] RDW SD 48.0 fl High 35.1-43.9 [facility] Comment on above: Order Comment: Performed By: #### L 100.0500, L500.2500 #### [facility] [address] [place], [address] WBC (Bld) [#/Vol] 5.0 10*3/uL Normal 4.4-11.[address] [facility] Comment on above: Order Comment: Performed By: #### L 100.0500, L500.2500 #### [facility] [address] [place], [address] Comprehensive Metabolic Prof [facility] 12-20-2023 Albumin [Mass/Vol] 3.2 g/dL Normal 3.2-5.[address] [facility] Comment on above: Order Comment: Performed By: #### L 100.0500, L500.2500 #### [facility] [address] [place], [address] Albumin/Globulin [Mass ratio] 1.0 {ratio} Normal 0.9-2.4 [facility] Comment on above: Order Comment: Performed By: #### L 100.0500, L500.2500 #### [facility] [address] [place], [address] ALK P 99 U/L Normal 45-117 [facility] Comment on above: Order Comment: Performed By: #### L 100.0500, L500.2500 #### [facility] [address] [place], [address] ALT [Catalytic activity/Vol] 13 U/L Normal 13-56 [facility] Comment on above: Order Comment: Performed By: #### L 100.0500, L500.2500 #### [facility] [address] [place], [address] AST [Catalytic activity/Vol] 17 U/L Normal 15-37 [facility] Comment on above: Order Comment: Performed By: #### L 100.0500, L500.2500 #### [facility] [address] [place], [address] Bilirubin [Mass/Vol] 1.30 mg/dL High 0.20-1.00 [facility] Comment on above: Order Comment: Result Comment: For patients on eltrombopag therapy, use of Dimension [place] TBIL is not recommended. Performed By: #### L 100.0500, L500.2500 #### [facility] [address] [place], [address] BUN/CRE 24.1 RATIO High 10-20 [facility] Comment on above: Order Comment: Performed By: #### L 100.0500, L500.2500 #### [facility] [address] [place], [address] CA,Total 9.5 mg/dL Normal 8.5-10.1 [facility] Comment on above: Order Comment: Performed By: #### L 100.0500, L500.2500 #### [facility] [address] [place], [address] Chloride [Moles/Vol] 108 mmol/L High 98-107 [facility] Comment on above: Order Comment: Performed By: #### L 100.0500, L500.2500 #### [facility] [address] [place], [address] CO2 [Moles/Vol] 30.0 mmol/L Normal 21.0-32.0 [facility] Comment on above: Order Comment: Performed By: #### L 100.0500, L500.2500 #### [facility] [address] [place], [address] Creatinine [Mass/Vol] 1.16 mg/dL High 0.55-1.02 [facility] Comment on above: Order Comment: Result Comment: The validity of the calculated GFR GFRAA in patients over 70 years has not been determined. Clinical correlation is essential. Performed By: #### L 100.0500, L500.2500 #### [facility] [address] [place], [address] EST GFR - AA 57 mL/min Low >60 [facility] Comment on above: Order Comment: Result Comment: Afri can Taiwanese GFR Calc Performed By: #### L 100.0500, L500.2500 #### [facility] [address] [place], [address] GAP 3 Low 5-15 [facility] Comment on above: Order Comment: Performed By: #### L 100.0500, L500.2500 #### [facility] [address] [place], [address] GFR/1.73 sq M.predicted among non-blacks MDRD (S/P/Bld) [Vol rate/Area] 47 mL/min/{1.73_m2} Low >60 [facility] Comment on above: Order Comment: Result Comment: Non- GFR Calc Performed By: #### L 100.0500, L500.2500 #### [facility] [address] [place], [address] Globulin (S) [Mass/Vol] 3.2 g/dL Normal 2.2-4.2 [facility] Comment on above: Order Comment: Performed By: #### L 100.0500, L500.2500 #### [facility] [address] [place], [address] Glucose [Mass/Vol] 89 mg/dL Normal 74-[address] [facility] Comment on above: Order Comment: -1 Performed By: #### L 100.0500, L500.2500 #### [facility] [address] [place], [address] Potassium [Moles/Vol] 4.8 mmol/L Normal 3.5-5.1 [facility] Comment on above: Order Comment: - Performed By: #### L 100.0500, L500.2500 #### [facility] [address] [place], [address] Sodium [Moles/Vol] 141 mmol/L Normal 136-[address] [facility] Comment on above: Order Comment: - Performed By: #### L 100.0500, L500.2500 #### [facility] [address] [place], [address] T PROT 6.4 g/dL Normal 6.4-8.2 [facility] Comment on above: Order Comment: - Performed By: #### L 100.0500, L500.2500 #### [facility] [address] [place], [address] Urea nitrogen [Mass/Vol] 28 mg/dL High 7-18 [facility] Comment on above: Order Comment: -1 Performed By: #### L 100.0500, L500.2500 #### [facility] [address] [place], [address] Urinalysis, Completeon 12-19 BACTERIA RARE Normal None Seen [facility] Comment on above: Order Comment: CLEAN CATCH Performed By: #### M 100.2200, L400.0001 #### [facility] [address] [place], [address] EPI,SQUAMOUS 0-5 SEEN Normal 5-10 [facility] Comment on above: Order Comment: CLEAN CATCH Performed By: #### M 100.2200, L400.0001 #### [facility] [address] [place], [address] EPI,TRANSITION 0-5 SEEN Normal 0-5 [facility] Comment on above: Order Comment: CLEAN CATCH Performed By: #### M 100.2200, L400.0001 #### [facility] [address] [place], [address] RBC 0-5 SEEN Normal 0-5 [facility] Comment on above: Order Comment: CLEAN CATCH Performed By: #### M 100.2200, L400.0001 #### [facility] [address] [place], [address] Mucus Ql (Urine sed) 0 SEEN Normal [facility] Comment on above: Order Comment: CLEAN CATCH Performed By: #### M 100.2200, L400.0001 #### [facility] [address] [place], [address] WBC 0 SEEN Normal 0-5 [facility] Comment on above: Order Comment: CLEAN CATCH Performed By: #### M 100.2200, L400.0001 #### [facility] [address] [place], [address] CBC-Complete Blood Cnt No Di ffon 12-05-2023 Erythrocyte distribution width (RBC) [Ratio] 13.4 % Normal 11.6-14.6 [facility] Comment on above: Order Comment: Performed By: #### L 500.4050, L100.0500 #### [facility] [address] [place], [address] Hematocrit (Bld) [Volume fraction] 29.3 % Low 37-47 [facility] Comment on above: Order Comment: Performed By: #### L 500.4050, L100.0500 #### [facility] [address] [place], [address] Hemoglobin (Bld) [Mass/Vol] 9.3 g/dL Low 12.0-15.0 [facility] Comment on above: Order Comment: Performed By: #### L 500.4050, L100.0500 #### [facility] [address] [place], [address] MCH (RBC) [Entitic mass] 30.3 pg Normal 27.0-32.0 [facility] Comment on above: Order Comment: Performed By: #### L 500.4050, L100.0500 #### [facility] [address] [place], [address] MCHC (RBC) [Mass/Vol] 31.7 g/dL Low 32-36 [facility] Comment on above: Order Comment: Performed By: #### L 500.4050, L100.0500 #### [facility] [address] [place], [address] MCV (RBC) [Entitic vol] 95.4 fL Normal 81-99 [facility] Comment on above: Order Comment: Performed By: #### L 500.4050, L100.0500 #### [facility] [address] [place], [address] Platelet mean volume (Bld) [Entitic vol] 9.8 fL Normal 6.2-12.0 [facility] Comment on above: Order Comment: Performed By: #### L 500.4050, L100.0500 #### [facility] [address] [place], [address] Platelets (Bld) [#/Vol] 144 10*3/uL Low 150-450 [facility] Comment on above: Order Comment: - Performed By: #### L 500.4050, L100.0500 #### [facility] [address] [place], [address] RBC (Bld) [#/Vol] 3.07 10*6/uL Low 4.2-5.4 [facility] Comment on above: Order Comment: - Performed By: #### L 500.4050, L100.0500 #### [facility] [address] [place], [address] RDW SD 46.7 fl High 35.1-43.9 [facility] Comment on above: Order Comment: - Performed By: #### L 500.4050, L100.0500 #### [facility] [address] [place], [address] WBC (Bld) [#/Vol] 4.1 10*3/uL Low 4.4-11.[address] [facility] Comment on above: Order Comment: - Performed By: #### L 500.4050, L100.0500 #### [facility] [address] [place], [address] Comprehensive Metabolic Prof [facility] 12-05-2023 Albumin [Mass/Vol] 3.1 g/dL Low 3.2-5.[address] [facility] Comment on above: Order Comment: - Performed By: #### L 500.4050, L100.0500 #### [facility] [address] [place], [address] Albumin/Globulin [Mass ratio] 1.1 {ratio} Normal 0.9-2.4 [facility] Comment on above: Order Comment: - Performed By: #### L 500.4050, L100.0500 #### [facility] [address] [place], [address] ALK P 97 U/L Normal 45-117 [facility] Comment on above: Order Comment: Performed By: #### L 500.4050, L100.0500 #### [facility] [address] [place], [address] ALT [Catalytic activity/Vol] 13 U/L Normal 13-56 [facility] Comment on above: Order Comment: Performed By: #### L 500.4050, L100.0500 #### [facility] [address] [place], [address] AST [Catalytic activity/Vol] 3 U/L Low 15-37 [facility] Comment on above: Order Comment: Performed By: #### L 500.4050, L100.0500 #### [facility] [address] [place], [address] Bilirubin [Mass/Vol] 1.20 mg/dL High 0.20-1.00 [facility] Comment on above: Order Comment: Result Comment: For patients on eltrombopag therapy, use of Dimension [place] TBIL is not recommended. Performed By: #### L 500.4050, L100.0500 #### [facility] [address] [place], [address] BUN/CRE 32.4 RATIO High 10-20 [facility] Comment on above: Order Comment: Performed By: #### L 500.4050, L100.0500 #### [facility] [address] [place], [address] CA,Total 9.5 mg/dL Normal 8.5-10.1 [facility] Comment on above: Order Comment: Performed By: #### L 500.4050, L100.0500 #### [facility] [address] [place], [address] Chloride [Moles/Vol] 105 mmol/L Normal 98-107 [facility] Comment on above: Order Comment: Performed By: #### L 500.4050, L100.0500 #### [facility] [address] [place], [address] CO2 [Moles/Vol] 28.0 mmol/L Normal 21.0-32.0 [facility] Comment on above: Order Comment: Performed By: #### L 500.4050, L100.0500 #### [facility] [address] [place], [address] Creatinine [Mass/Vol] 1.05 mg/dL High 0.55-1.02 [facility] Comment on above: Order Comment: Result Comment: The validity of the calculated GFR GFRAA in patients over 70 years has not been determined. Clinical correlation is essential. Performed By: #### L 500.4050, L100.0500 #### [facility] [address] [place], [address] EST GFR - AA 64 mL/min Normal >60 [facility] Comment on above: Order Comment: Result Comment: Afri can Taiwanese GFR Calc Performed By: #### L 500.4050, L100.0500 #### [facility] [address] [place], [address] GAP 6 Normal 5-15 [facility] Comment on above: Order Comment: Performed By: #### L 500.4050, L100.0500 #### [facility] [address] [place], [address] GFR/1.73 sq M.predicted among non-blacks MDRD (S/P/Bld) [Vol rate/Area] 53 mL/min/{1.73_m2} Low >60 [facility] Comment on above: Order Comment: Result Comment: Non- GFR Calc Performed By: #### L 500.4050, L100.0500 #### [facility] [address] [place], [address] Globulin (S) [Mass/Vol] 2.7 g/dL Normal 2.2-4.2 [facility] Comment on above: Order Comment: - Performed By: #### L 500.4050, L100.0500 #### [facility] [address] [place], [address] Glucose [Mass/Vol] 98 mg/dL Normal 74-[address] [facility] Comment on above: Order Comment: - Performed By: #### L 500.4050, L100.0500 #### [facility] [address] [place], [address] Potassium [Moles/Vol] 4.6 mmol/L Normal 3.5-5.1 [facility] Comment on above: Order Comment: Performed By: #### L 500.4050, L100.0500 #### [facility] [address] [place], [address] Sodium [Moles/Vol] 139 mmol/L Normal 136-[address] [facility] Comment on above: Order Comment: Performed By: #### L 500.4050, L100.0500 #### [facility] [address] [place], [address] T PROT 5.8 g/dL Low 6.4-8.2 [facility] Comment on above: Order Comment: Performed By: #### L 500.4050, L100.0500 #### [facility] [address] [place], [address] Urea nitrogen [Mass/Vol] 34 mg/dL High 7-18 [facility] Comment on above: Order Comment: - Performed By: #### L 500.4050, L100.0500 #### [facility] [address] [place], [address] Encounters Encounter Date Encounter Type Care Provider Facility Start: 11-05-2024 ambulatory Dev GUTIERREZ Facili ty:[facility] Start: 09-24-2024 End: 09-24-2024 ambulatory Out of Town Doctor [facility] Work Phone: Start: 09-24-2024 End: 09-24-2024 Departed Referred Dev Gutierrez [facility] -[facility] Start: 09-24-2024 Registered Referred Dev Gutierrez [facility] -[facility] Start: 09-24-2024 End: 09-24-2024 ambulatory Dev GUTIERREZ Facility:[facility] Start: 09-17-2024 End: 09-17-2024 ambulatory Out of Town Doctor [facility] Work Phone: Start: 09-17-2024 End: 09-17-2024 [facility] Start: 09-17-2024 Registered Referred Dev Gutierrez [facility] -[facility] Start: 09-17-2024 End: 09-17-2024 ambulatory Dev GUTIERREZ Facility:[facility] Start: 09-11-2024 End: 09-11-2024 ambulatory Out of Town Doctor [facility] Work Phone: Start: 09-11-2024 End: 09-11-2024 Departed Referred Dev Gutierrez MD -[facility] Start: 09-11-2024 Registered Referred Dev Gutierrez [facility] -[facility] Start: 09-11-2024 End: 09-11-2024 ambulatory Dev GUTIERREZ Facility:[facility] Start: 09-03-2024 End: 09-03-2024 ambulatory Out of Town Doctor [facility] Work Phone: Start: 09-03-2024 End: 09-03-2024 [facility] Start: 09-03-2024 End: 09-03-2024 ambulatory Out of Town Doctor Facility:[facility] Start: 08-13-2024 End: 08-13-2024 ambulatory Out of Town Doctor [facility] Work Phone: Start: 08-13-2024 End: 08-13-2024 Departed Referred Jack Rutledge -[facility] Start: 08-13-2024 Registered Referred Jack Rutledge -[facility] Start: 08-13-2024 End: 08-13-2024 ambulatory Jack GUTIERREZ Facility:[facility] Start: 07-30-2024 End: 07-30-2024 ambulatory Out of Town Doctor [facility] Work Phone: Start: 07-30-2024 End: 07-30-2024 Departed Referred Dev Gutierrez MD -[facility] Start: 07-30-2024 Registered Referred Dev Gutierrez MD -[facility] Start: 07-30-2024 End: 07-30-2024 ambulatory Out of Town Doctor Facility:[facility] Start: 07-24-2024 End: 07-24-2024 Departed Referred Dev Gutierrez [facility] -[facility] Start: 07-24-2024 End: 07-24-2024 ambulatory Out of Town Doctor [facility] Work Phone: Start: 07-11-2024 End: 07-11-2024 ambulatory Out of Town Doctor [facility] Work Phone: Start: 07-11-2024 End: 07-11-2024 Departed Referred Dev Gutierrez MD -[facility] Start: 07-11-2024 Registered Referred Dev Gutierrez MD -[facility] Start: 07-11-2024 End: 07-11-2024 ambulatory Out of Town Doctor Facility:[facility] Start: 07-06-2024 ambulatory Dev GUTIERREZ Facili ty:[facility] Start: 07-06-2024 [facility] Start: 07-02-2024 ambulatory Dev GUTIERREZ Facili ty:[facility] Start: 07-02-2024 [facility] Start: 05-21-2024 ambulatory Dev GUTIERREZ Facili ty:[facility] Start: 05-21-2024 Registered Referred Dev Gutierrez MD -[facility] Start: 05-17-2024 ambulatory Dev GUTIERREZ Facili ty:[facility] Start: 05-17-2024 Registered Referred Dev Gutierrez MD -[facility] Start: 05-04-2024 End: 05-04-[address] Rachele Velasquez MD -Radiology, [place] Work Phone: Start: 05-04-2024 End: 05-04-2024 ambulatory Out of Town Doctor Facility:[facility] Start: 04-23-2024 End: 04-23-2024 Departed Referred Dev Gutierrez MD -[facility] Start: 04-23-2024 End: 04-23-2024 ambulatory Out of Town Doctor Facility:[facility] Start: 04-06-2024 ambulatory Out of Town Doctor Faci lity:[facility] Start: 03-20-2024 End: 03-20-2024 ambulatory Dev GUTIERREZ Facility:[facility] Start: 03-09-2024 End: 03-09-2024 ambulatory Dev GUTIERREZ Facility:[facility] Start: 03-08-2024 End: 03-08-2024 ambulatory Out of Town Doctor Facility:[facility] Start: 03-07-2024 End: 03-07-2024 Telephone encounter Lev Li MD Work Phone: [facility] Start: 03-07-2024 End: 03-07-2024 ambulatory Out of Town Doctor Facility:[facility] Start: 03-06-2024 End: 03-06-2024 ambulatory Dev GUTIERREZ Facility:[facility] Start: 02-27-2024 End: 02-27-2024 ambulatory Dev GUTIERREZ Facility:[facility] Start: 01-23-2024 ambulatory Dev GUTIERREZ Facili ty:[facility] Start: 01-18-2024 ambulatory Dev GUTIERREZ Facili ty:[facility] Start: 01-17-2024 ambulatory Dev GUTIERREZ Facili ty:[facility] Start: 12-20-2023 End: 12-20-2023 ambulatory Dev GUTIERREZ Facility:[facility] Start: 12-05-2023 End: 12-05-2023 ambulatory Dev GUTIERREZ Facility:[facility] Procedures Date Procedure Procedure Detail Performing Clinician [...] polysaccharide vaccine, 23 valent Out Town Doctor [facility] 02-12-2015 Influenza virus vaccine Out Town Doc tor [facility] Payers Date Payer Category Payer Medicare [id number] 2023 Medicare [id number] 2023 Self-pay 2023 Unknown [id number] 2014 Private Health Insurance [employer] [facility] ME [id number] 1997 Medicare MEDICARE [id number] Medicare [employer] MEDICARE PPO [id number] Unknown [id number] 2.16.840.1.460615.3.579.2. 462 Unknown [id number] 2.16.840.1.989777.3.579.2. 462 Unknown [id number] 2.16.840.1.514220.3.579.2. 462 Unknown [id number] 2.16.840.1.539059.3.579.2. 462 Unknown [id number] 2.16.840.1.935696.3.579.2. 462 Unknown [id number] 2.16.840.1.461382.3.579.2. 462 Unknown [id number] 2.16.840.1.454159.3.579.2. 462 Unknown [id number] 2.16.840.1.109068.3.579.2. 462 Unknown [id number] 2.16.840.1.588341.3.579.2. 462 Unknown [id number] 2.16.840.1.367278.3.579.2. 462 Unknown [id number] 2.16.840.1.317213.3.579.2. 462 Unknown [id number] 2.16.840.1.973261.3.579.2. 462 Unknown [id number] 2.16.840.1.840669.3.579.2. 462 Unknown [id number] 2.16.840.1.234384.3.579.2. 462 Unknown [id number] 2.16.840.1.943666.3.579.2. 462 Unknown [id number] 2.16.840.1.080766.3.579.2. 462 Unknown [id number] 2.16.840.1.290570.3.579.2. 462 Unknown [id number] 2.16.840.1.764696.3.579.2. 462 Unknown [id number] 2.16.840.1.205226.3.579.2. 462 Unknown [id number] 2.16.840.1.883609.3.579.2. 462 Unknown [id number] 2.16.840.1.698884.3.579.2. 462 Unknown [id number] 2.16.840.1.882779.3.579.2. 462 Unknown [id number] 2.16.840.1.254768.3.579.2. 462 Unknown [id number] 2.16.840.1.007122.3.579.2. 462 Unknown [id number] 2.16.840.1.715328.3.579.2. 462 Unknown [id number] 2.16.840.1.156076.3.579.2. 462 Unknown [id number] 2.16840.1.422162.3.579.2. 462 Unknown [id number] 2.16.840.1.325417.3.579.2. 462 Social History Date Type Detail Facility [facility] Start: 1940 Sex assigned at Not on file [facility] Gender identity Not [facility] file [facility] Start: 04-22-[address] [facility] Never smoked tobacco (finding) [facility] Start: 04-06-2015 None None [facility] Start: 04-06-2015 Spouse/ Significant Other Spouse/ Significant Other [facility] Start: 08-16-2024 End: 08-30-2024 Sex Female (finding) [facility] Start: 1940 Sex Assigned At Female [facility] Telephone encounter Note 10-23-2024 Telephone Encounter - Анна Batista - 03/07/2024 2:04 PM EDT Note Date & Type Note Facility 03-07-2024 Telephone encount er Note Recd referral from [facility] to schedule a new pt appt, when I called the facility today-03/07/24- I was informed by the receptionist telephone operator that they had already made her an appt closer to their facility and to disregard this referral [facility] Note 03-07-2024 Telephone Encounter - Анна Batista - 03/07/2024 2:04 PM EDT Note Date & Type Note Facility 03-07-2024 Miscellaneous Notes Formattin g of this note might be different from the original. Recd referral [facility] pt appt, when I called the facility today-03/07/24- I was informed by the receptionist telephone operator that they had already made her an appt closer to their facility and to disregard this referral documented in this encounter [facility] Evaluation note Note Date & Type Note Facility Evaluation note No assessment information availa ble [facility] Work Phone: Reason for referral (narrative) Note Date & Type Note Facility Reason for referral (narrative) No reason for referral information available [facility] Work Phone: Chief Complaint and Reason for Visit Chief Complaint Admit Date LABWORK April 23, 2024 5 :00am [facility] May 04, 2024 3:07pm CUSTODIAL LAB WORK May 17, 2024 9:42pm LABWORK May 21, 2024 5: 00am LABWORK July 02, 2024 5:00am LABWORK July 06, 2024 5:00am LABWORK July 11, 2024 5:00am CUSTODIAL LAB WORK July 11 1:00pm CUSTODIAL LAB WORK July 24, 2024 1 :00am Chief Complaint Admit Date LABWORK April 23, 2024 5 :00am [facility] May 04, 2024 3:07pm CUSTODIAL LAB WORK May 17, 2024 9:42pm LABWORK May 21, 2024 5: 00am LABWORK July 02, 2024 5:00am LABWORK July 06, 2024 5:00am LABWORK July 11, 2024 5:00am CUSTODIAL LAB WORK July 11 1:00pm CUSTODIAL LAB WORK July 24, 2024 1 :00am CUSTODIAL LAB WORK July 30, 2024 5 :00am Chief Complaint Admit Date [facility] May 04, 2024 3:07pm CUSTODIAL LAB WORK May 17, 2024 9:42pm LABWORK May 21, 2024 5: 00am LABWORK July 02, 2024 5:00am LABWORK July 06, 2024 5:00am LABWORK July 11, 2024 5:00am CUSTODIAL LAB WORK July 11 1:00pm CUSTODIAL LAB WORK July 24, 2024 1 :00am CUSTODIAL LAB WORK July 30, 2024 5 :00am LABWORK August 13, 2024 5:0 0am Chief Complaint Admit Date LABWORK July 02, 2024 5:00am LABWORK July 06, 2024 5:00am LABWORK July 11, 2024 5:00am CUSTODIAL LAB WORK July 11 1:00pm CUSTODIAL LAB WORK July 24, 2024 1 :00am CUSTODIAL LAB WORK July 30, 2024 5 :00am LABWORK August 13, 2024 5:0 0am CUSTODIAL LAB WORK September 03, 2024 5 :00am Chief Complaint Admit Date LABWORK July 02, 2024 5:00am LABWORK July 06, 2024 5:00am LABWORK July 11, 2024 5:00am CUSTODIAL LAB WORK July 11 1:00pm CUSTODIAL LAB WORK July 24, 2024 1 :00am CUSTODIAL LAB WORK July 30, 2024 5 :00am LABWORK August 13, 2024 5:0 0am CUSTODIAL LAB WORK September 03, 2024 5 :00am LABWORK September 24, 2024 5:00a m Chief Complaint Admit Date LABWORK July 02, 2024 5:00am LABWORK July 06, 2024 5:00am LABWORK July 11, 2024 5:00am CUSTODIAL LAB WORK July 11 1:00pm CUSTODIAL LAB WORK July 24, 2024 1 :00am CUSTODIAL LAB WORK July 30, 2024 5 :00am LABWORK August 13, 2024 5:0 0am CUSTODIAL LAB WORK September 03, 2024 5 :00am CUSTODIAL LAB WORK September 11, 2024 4 :00am CUSTODIAL LAB WORK September 17, 2024 5:00 am LABWORK September 24, 2024 5:00a m Family History No Family History Records Found Relationship Condition Age at Onset Recorded Date/T sahil Unknown Family History?No pe rtinent history Unknown April 06, 2015 6:21am Family History?No pe rtinent history Unknown April 06, 2015 6:21am Advance Directives No Advanced Directives Records Found Advance Directive Response Recorded Date/ Time Advance Directives Yes April 22, 2015 4:08pm Summary Purpose Additional Source Comments Care Teams (unrecognized sec tion and content) Preparation Center Coordinator Relationship Specialty Start Date End Date Dev Gutierrez Sr., MD [address] [place] [address] [phone] PCP - General Internal Medicine 03/06/24 Team Status: Active Member Role Status [facility] Family Provider Active Out of [facility] Doctor Primary Care Provider Active Team Status: Inactive Member Role Status Dates Out [facility] Doctor Primary Care Provider Active Start: April 23, 2024 End: April 23, 2024 Dev GUTIERREZ MD Attending Provider Active S tart: April 23, 2024 End: April 23, 2024 Team Status: Inactive Member Role Status Dates [facility] Doctor Primary Care Provider Active Start: May 04, 2024 End: May 04, 2024 Dr. Rachele Velasquez MD Attending Provider Active Start: May 04, 2024 End: May 04, 2024 Dr. Rachele Velasquez MD Referring Provider Active Start: May 04, 2024 End: May 04, 2024 Team Status: Active Member Role Status Dates [facility] Doctor Primary Care Provider Active Start: May 17, 2024 Dev GUTIERREZ MD Attending Provider Active S tart: May 17, 2024 Dev GUTIERREZ MD Referring Provider Active S tart: May 17, 2024 Team Status: Active Member Role Status Dates [facility] Doctor Primary Care Provider Active Start: May 21, 2024 Dev GUTIERREZ MD Attending Provider Active S tart: May 21, 2024 Team Status: Active Member Role Status Dates [facility] Doctor Primary Care Provider Active Start: July 02, 2024 Dev GUTIERREZ MD Attending Provider Active S tart: July 02, 2024 Team Status: Active Member Role Status Dates [facility] Doctor Primary Care Provider Active Start: July 06, 2024 Dev GUTIERREZ MD Attending Provider Active S tart: July 06, 2024 Team Status: Active Member Role Status Dates Out of [facility] Primary Care Provider Active Start: July 11, 2024 Dev GUTIERREZ MD Attending Provider Active S tart: July 11, 2024 Team Status: Inactive Member Role Status Dates Out of [facility] Primary Care Provider Active Start: July 24, 2024 End: July 24, 2024 Dev GUTIERREZ MD Attending Provider Active S tart: July 24, 2024 End: July 24, 2024 Team Status: Active Member Role Status Dates Out of [facility] Primary Care Provider Active Start: July 30, 2024 Dev GUTIERREZ MD Attending Provider Active S tart: July 30, 2024 Team Status: Active Member Role Status Dates Out of [facility] Primary Care Provider Active Start: August 13, 2024 Jack GUTIERREZ Attending Provider Active Star t: August 13, 2024 Team Status: Inactive Member Role Status Dates Out of [facility] Primary Care Provider Active Start: July 11, 2024 End: July 11, 2024 Dev GUTIERREZ MD Attending Provider Active S tart: July 11, 2024 End: July 11, 2024 Team Status: Inactive Member Role Status Dates Out of [facility] Primary Care Provider Active Start: July 30, 2024 End: July 30, 2024 Dev GUTIERREZ MD Attending Provider Active S tart: July 30, 2024 End: July 30, 2024 Team Status: Inactive Member Role Status Dates Out [facility] Doctor Primary Care Provider Active Start: August 13, 2024 End: August 13, 2024 Jack GUTIERREZ Attending Provider Active Star t: August 13, 2024 End: August 13, 2024 Team Status: Inactive Member Role Status Dates Out of [facility] Doctor Primary Care Provider Active Start: September 03, 2024 End: September 03, 2024 Dev GUTIERREZ MD Attending Provider Active S tart: September 03, 2024 End: September 03, 2024 Team Status: Active Member Role Status Dates Out [facility] Doctor Primary Care Provider Active Start: September 11, 2024 Dev GUTIERREZ MD Attending Provider Active S tart: September 11, 2024 Team Status: Active Member Role Status Dates [facility] Doctor Primary Care Provider Active Start: September 17, 2024 Dev GUTIERREZ MD Attending Provider Active S tart: September 17, 2024 Team Status: Active Member Role Status Dates [facility] Doctor Primary Care Provider Active Start: September 24, 2024 Dev GUTIERREZ MD Attending Provider Active S tart: September 24, 2024 Team Status: Inactive Member Role Status Dates [facility] Doctor Primary Care Provider Active Start: September 24, 2024 End: September 24, 2024 Dev GUTIERREZ MD Attending Provider Active S tart: September 24, 2024 End: September 24, 2024 Team Status: Inactive Member Role Status Dates Out [facility] Doctor Primary Care Provider Active Start: September 11, 2024 End: September 11, 2024 Dev GUTIERREZ MD Attending Provider Active S tart: September 11, 2024 End: September 11, 2024 Dev GUTIERREZ MD Referring Provider Active S tart: September 11, 2024 End: September 11, 2024 Team Status: Inactive Member Role Status Dates Out [facility] Doctor Primary Care Provider Active Start: September 17, 2024 End: September 17, 2024 Dev GUTIREREZ MD Attending Provider Active S tart: September [...] ized section and content) DATE CREATED AUTHOR 11/06/2024 [facility] FOR RECORDS PERTAINING TO PATIENTS WHO [...] BE BASED ON THE PRIMARY CLINICAL RECORDS. [facility] [employer] by [employer] [facility]. provides no warranty or guarantee of the accuracy or completeness of information in this document.
--- OUTSIDE RECORDS SUMMARY | 2024-11-27 03:52 | XMS RPT_ITS | CCD ---
Author Organization [facility] Care Team Providers Care Tank Cooper Name Role Phone Brenda Hardy MD, Dev Primary Care Provider Town Doctor, Out of Primary Care Provider Johnny Gutierrez MD, Dev Attending Provider Valeria Velasquez MD, Dr. Jeffrey Attending Provider Dr. Rachele Velasquez MD Referring Provider [phone] Brenda BALDWIN, Dev Referring Provider Unavailable Jack [...] Town Doctor, Out of Primary Care Unavailable [facility] Attending Johnny montiel Deperro OLS, [...] (9 sources) Cephalexin Drug Allergy 05-17-2015 Rash [facility] (1 source) Cephalexin Drug Allergy 05-17-2015 [facility] Repository Medications Current Medications Medication Drug [...] D2) (Vitamin D2) 50,000 UNIT capsule Discontinued 36676 U PO TU April 22, 2015 1:53pm [...] width (RBC) [Ratio] 13.6 % Normal 11.6-14.6 [facility] Comment on above: Order Comment: 209-1 Performed By: #### L 100.0500, L500.2500 #### [facility] [address] [place], [address] Hematocrit (Bld) [Volume fraction] 30.7 % Low 37-47 [facility] Comment on above: Order Comment: - Performed By: #### L 100.0500, L500.2500 #### [facility] [address] [place], [address] Hemoglobin (Bld) [Mass/Vol] 10.1 g/dL Low 12.0-15.0 [facility] Comment on above: Order Comment: - Performed By: #### L 100.0500, L500.2500 #### [facility] [address] [place], [address] MCH (RBC) [Entitic mass] 31.6 pg Normal 27.0-32.0 [facility] Comment on above: Order Comment: Performed By: #### L 100.0500, L500.2500 #### [facility] [address] [place], [address] MCHC (RBC) [Mass/Vol] 32.9 g/dL Normal 32-36 [facility] Comment on above: Order Comment: Performed By: #### L 100.0500, L500.2500 #### [facility] [address] [place], [address] MCV (RBC) [Entitic vol] 95.9 fL Normal 81-99 [facility] Comment on above: Order Comment: Performed By: #### L 100.0500, L500.2500 #### [facility] [address] [place], [address] Platelet mean volume (Bld) [Entitic vol] 9.8 fL Normal 6.2-12.0 [facility] Comment on above: Order Comment: - Performed By: #### L 100.0500, L500.2500 #### [facility] [address] [place], [address] Platelets (Bld) [#/Vol] 137 10*3/uL Low 150-450 [facility] Comment on above: Order Comment: - Performed By: #### L 100.0500, L500.2500 #### [facility] [address] [place], [address] RBC (Bld) [#/Vol] 3.20 10*6/uL Low 4.2-5.4 [facility] Comment on above: Order Comment: - Performed By: #### L 100.0500, L500.2500 #### [facility] [address] [place], [address] RDW SD 48.4 fl High 35.1-43.9 [facility] Comment on above: Order Comment: - Performed By: #### L 100.0500, L500.2500 #### [facility] [address] [place], [address] WBC (Bld) [#/Vol] 4.5 10*3/uL Normal 4.4-11.0 [facility] Comment on above: Order Comment: Performed By: #### L 100.0500, L500.2500 #### [facility] [address] [place], [address] Comprehensive Metabolic Prof ilon 11-05-2024 Albumin [Mass/Vol] 3.9 g/dL Normal 3.4-4.8 [facility] Comment on above: Order Comment: - Performed By: #### L 100.0500, L500.2500 #### [facility] [address] [place], [address] Albumin/Globulin [Mass ratio] 1.9 {ratio} Normal 0.9-2.4 [facility] Comment on above: Order Comment: - Performed By: #### L 100.0500, L500.2500 #### [facility] [address] [place], [address] ALK PHOS 72 U/L Normal 35-104 [facility] Comment on above: Order Comment: - Performed By: #### L 100.0500, L500.2500 #### [facility] [address] [place], [address] ALT [Catalytic activity/Vol] 15 U/L Normal <=34 [facility] Comment on above: Order Comment: - Performed By: #### L 100.0500, L500.2500 #### [facility] [address] [place], [address] AST [Catalytic activity/Vol] 24 U/L Normal <=31 [facility] Comment on above: Order Comment: - Performed By: #### L 100.0500, L500.2500 #### [facility] [address] [place], [address] Bilirubin [Mass/Vol] 1.06 mg/dL Normal 0.00-1.30 [facility] Comment on above: Order Comment: - Performed By: #### L 100.0500, L500.2500 #### [facility] [address] [place], [address] BUN/CRE 22.6 RATIO High 10-20 [facility] Comment on above: Order Comment: - Performed By: #### L 100.0500, L500.2500 #### [facility] [address] [place], [address] Calcium [Mass/Vol] 9.4 mg/dL Normal 7.6-11.0 [facility] Comment on above: Order Comment: - Performed By: #### L 100.0500, L500.2500 #### [facility] [address] [place], [address] Chloride [Moles/Vol] 109 mmol/L High 98-108 [facility] Comment on above: Order Comment: Performed By: #### L 100.0500, L500.2500 #### [facility] [address] [place], [address] CO2 [Moles/Vol] 23.5 mmol/L Normal 21.0-32.0 [facility] Comment on above: Order Comment: Performed By: #### L 100.0500, L500.2500 #### [facility] [address] [place], [address] Creatinine [Mass/Vol] 1.00 mg/dL Normal 0.70-1.20 [facility] Comment on above: Order Comment: Performed By: #### L 100.0500, L500.2500 #### [facility] [address] [place], [address] GAP 10 Normal 5-15 [facility] Comment on above: Order Comment: Performed By: #### L 100.0500, L500.2500 #### [facility] [address] [place], [address] GFR/1.73 sq M.predicted among non-blacks MDRD (S/P/Bld) [Vol rate/Area] 56 mL/min/{1.73_m2} Low >60 [facility] Comment on above: Order Comment: Result Comment: mL/m in/1.73m2 CKD-EPI Creatinine Equation (2020) Performed By: #### L 100.0500, L500.2500 #### [facility] [address] [place], [address] Globulin (S) [Mass/Vol] 2.1 g/dL Low 2.2-4.2 [facility] Comment on above: Order Comment: Performed By: #### L 100.0500, L500.2500 #### [facility] [address] [place], [address] Glucose [Mass/Vol] 100 mg/dL High 70-99 [facility] Comment on above: Order Comment: - Performed By: #### L 100.0500, L500.2500 #### [facility] [address] [place], [address] Potassium [Moles/Vol] 4.0 mmol/L Normal 3.3-5.1 [facility] Comment on above: Order Comment: - Performed By: #### L 100.0500, L500.2500 #### [facility] [address] [place], [address] Sodium [Moles/Vol] 143 mmol/L Normal 133-145 [facility] Comment on above: Order Comment: - Performed By: #### L 100.0500, L500.2500 #### [facility] [address] [place], [address] T PROT 6.0 g/dL Normal 5.9-8.4 [facility] Comment on above: Order Comment: - Performed By: #### L 100.0500, L500.2500 #### [facility] [address] [place], [address] Urea nitrogen [Mass/Vol] 23 mg/dL High 4-19 [facility] Comment on above: Order Comment: - Performed By: #### L 100.0500, L500.2500 #### [facility] [address] [place], [address] Thyroid Stim Hormone (TSH)on 11-05-2024 TSH 1.160 uIU/mL Normal 0.300-4.200 [facility] Comment on above: Order Comment: - Performed By: #### L 100.0500, L500.2500 #### [facility] [address] [place], [address] TSH DL <= 0.005 mIU/L QnOrde red By: Dev Gutierrez on 09-24-2024 TSH Qn 6.110 uIU/mL High 0.300-4.200 [facility] Thyroid Stim Hormone (TSH)on 09-24-2024 TSH 6.110 uIU/mL High 0.300-4.200 [facility] Comment on above: Order Comment: Performed By: #### L 500.4050, L501.9520, L100.0500 #### [facility] [address] [place], [place], [id number] Urine Cultureon 09-19-2024 URC Presumptive E. coli [place] Count >100,000 Presumptive E. coli: REACTION Ampicillin [...] TMP SMX Islt PARMINDER <=20 S Normal [facility] Comment on above: Performed By: #### M 100.2200, L400.0001 #### [facility] [address] [facility] [place], [id number] Anion gap in Serum or Plasma Ordered By: Dev Gutierrez on 09-17-2024 Anion gap [Moles/Vol] 10 mmol/L -15 [facility] BUN/creatinine ratioOrdered By: Dev Gutierrez on 09-17-2024 Urea nitrogen/Creatinine [Mass ratio] 22.4 mg/mg High - [facility] Basic Metabolic Profile (BMP )on 09-17-2024 BUN/CRE 22.4 RATIO High - [facility] Comment on above: Order Comment: Performed By: #### L 100.0500, L500.2500 #### [facility] [address] [place], [address] Calcium [Mass/Vol] 9.6 mg/dL Normal 7.6-11.0 [facility] Comment on above: Order Comment: Performed By: #### L 100.0500, L500.2500 #### [facility] [address] [place], [address] Chloride [Moles/Vol] 107 mmol/L Normal 98-108 [facility] Comment on above: Order Comment: Performed By: #### L 100.0500, L500.2500 #### [facility] [address] [place], [address] CO2 [Moles/Vol] 24.3 mmol/L Normal 21.0-32.0 [facility] Comment on above: Order Comment: Performed By: #### L 100.0500, L500.2500 #### [facility] [address] [place], [address] Creatinine [Mass/Vol] 1.14 mg/dL Normal 0.70-1.20 [facility] Comment on above: Order Comment: Performed By: #### L 100.0500, L500.2500 #### [facility] [address] [place], [address] GAP 10 Normal 5-15 [facility] Comment on above: Order Comment: Performed By: #### L 100.0500, L500.2500 #### [facility] [address] [place], [address] GFR/1.73 sq M.predicted among non-blacks MDRD (S/P/Bld) [Vol rate/Area] 48 mL/min/{1.73_m2} Low >60 [facility] Comment on above: Order Comment: Result Comment: mL/m in/1.73m2 CKD-EPI Creatinine Equation (2020) Performed By: #### L 100.0500, L500.2500 #### [facility] [address] [place], [address] Glucose [Mass/Vol] 98 mg/dL Normal 70-99 [facility] Comment on above: Order Comment: Performed By: #### L 100.0500, L500.2500 #### [facility] [address] [place], [address] Potassium [Moles/Vol] 4.3 mmol/L Normal 3.3-5.1 [facility] Comment on above: Order Comment: Performed By: #### L 100.0500, L500.2500 #### [facility] [address] [place], [address] Sodium [Moles/Vol] 141 mmol/L Normal 133-145 [facility] Comment on above: Order Comment: Performed By: #### L 100.0500, L500.2500 #### [facility] [address] [place], [address] Urea nitrogen [Mass/Vol] 26 mg/dL High 4-19 [facility] Comment on above: Order Comment: Performed By: #### L 100.0500, L500.2500 #### [facility] [address] [place], [address] CBC-Complete Blood Cnt No Di ffon 09-17-2024 Erythrocyte distribution width (RBC) [Ratio] 13.2 % Normal 11.6-14.6 [facility] Comment on above: Order Comment: Performed By: #### L 100.0500, L500.2500 #### [facility] [address] [place], [address] Hematocrit (Bld) [Volume fraction] 32.3 % Low 37-47 [facility] Comment on above: Order Comment: Performed By: #### L 100.0500, L500.2500 #### [facility] [address] [place], [address] Hemoglobin (Bld) [Mass/Vol] 10.7 g/dL Low 12.0-15.0 [facility] Comment on above: Order Comment: Performed By: #### L 100.0500, L500.2500 #### [facility] [address] [place], [address] MCH (RBC) [Entitic mass] 32.4 pg High 27.0-32.0 [facility] Comment on above: Order Comment: Performed By: #### L 100.0500, L500.2500 #### [facility] [address] [place], [address] MCHC (RBC) [Mass/Vol] 33.1 g/dL Normal 32-36 [facility] Comment on above: Order Comment: Performed By: #### L 100.0500, L500.2500 #### [facility] [address] [place], [address] MCV (RBC) [Entitic vol] 97.9 fL Normal 81-99 [facility] Comment on above: Order Comment: Performed By: #### L 100.0500, L500.2500 #### [facility] [address] [place], [address] Platelet mean volume (Bld) [Entitic vol] 10.1 fL Normal 6.2-12.0 [facility] Comment on above: Order Comment: Performed By: #### L 100.0500, L500.2500 #### [facility] [address] [place], [address] Platelets (Bld) [#/Vol] 144 10*3/uL Low 150-450 [facility] Comment on above: Order Comment: Performed By: #### L 100.0500, L500.2500 #### [facility] [address] [place], [address] RBC (Bld) [#/Vol] 3.30 10*6/uL Low 4.2-5.4 [facility] Comment on above: Order Comment: Performed By: #### L 100.0500, L500.2500 #### [facility] [address] [place], [address] RDW SD 47.2 fl High 35.1-43.9 [facility] Comment on above: Order Comment: Performed By: #### L 100.0500, L500.2500 #### [facility] [address] [place], [address] WBC (Bld) [#/Vol] 5.1 10*3/uL Normal 4.4-11.0 [facility] Comment on above: Order Comment: Performed By: #### L 100.0500, L500.2500 #### [facility] [address] [place], [address] Carbon dioxide, total [Moles /volume] in Central venous bloodOrdered By: Dev Gutierrez on 09-17-2024 CO2 [Moles/Vol] 24.3 mmol/L 21.0-32.0 [facility] Chloride assayOrdered By: Morris on 09-17-2024 Chloride [Moles/Vol] 107 mmol/L 98-108 [facility] Erythrocyte distribution wid th ratioOrdered By: Dev Gutierrez on 09-17-2024 Erythrocyte distribution width (RBC) [Ratio] 13.2 % 11.6-14.6 [facility] Erythrocyte distribution wid th standard deviationOrdered By: Dev Gutierrez on 09-17-2024 Erythrocyte distribution width (RBC) [Ratio] 47.2 fl High 35.1-43.9 [facility] Glomerular filtration rate ( GFR) estimation/1.73 sq m using serum, plasma, or whole bOrdered By: Dev Gutierrez on 09-17-2024 GFR/1.73 sq M.predicted among non-blacks MDRD (S/P/Bld) [Vol rate/Area] 48 mL/min/{1.73_m2} Low >60 [facility] Comment on above: mL/min/1.73m2 CKD-EP I Creatinine Equation (2020) Hematocrit Auto (Bld) [Volum e fraction]Ordered By: Dev Gutierrez on 09-17-2024 Hematocrit (Bld) [Volume fraction] 32.3 % Low 37-47 [facility] Hemoglobin measurementOrdere d By: Dev Gutierrez on 09-17-2024 Hemoglobin (Bld) [Mass/Vol] 10.7 g/dL Low 12.0-15.0 [facility] MCV (mean corpuscular volume ) determinationOrdered By: Dev Gutierrez on 09-17-2024 MCV (RBC) [Entitic vol] 97.9 fL 81-99 [facility] Mean corpuscular hemoglobin (MCH) determinationOrdered By: Dev Gutierrez on 09-17-2024 MCH (RBC) [Entitic mass] 32.4 pg High 27.0-32.0 [facility] Mean corpuscular hemoglobin concentration (MCHC) determinationOrdered By: Dev Gutierrez on 09-17-2024 MCHC (RBC) [Mass/Vol] 33.1 g/dL 32-36 [facility] Mean platelet volume determi nationOrdered By: Dev Gutierrez on 09-17-2024 Platelet mean volume (Bld) [Entitic vol] 10.1 fL 6.2-12.0 [facility] Platelet countOrdered By: Morris on 09-17-2024 Platelets (Bld) [#/Vol] 144 10*3/uL Low 150-450 [facility] Potassium measurement (mass/ volume)Ordered By: Dev Gutierrez on 09-17-2024 Potassium (Unsp spec) [Mass/Vol] 4.3 mmol/L 3.3-5.1 [facility] RBC Auto (Bld) [#/Vol]Ordere d By: Dev Gutierrez on 09-17-2024 RBC (Bld) [#/Vol] 3.30 10*6/uL Low 4.2-5.4 [facility] Serum creatinine measurement (mass/volume)Ordered By: Dev Gutierrez on 09-17-2024 Creatinine [Mass/Vol] 1.14 mg/dL 0.70-1.20 [facility] Serum glucose measurement (m ass/volume)Ordered By: Dev Gutierrez on 09-17-2024 Glucose [Mass/Vol] 98 mg/dL 70-99 [facility] Serum or plasma calcium maude urement (mass/volume)Ordered By: Dev Gutierrez on 09-17-2024 Calcium [Mass/Vol] 9.6 mg/dL 7.6-11.0 [facility] Serum or plasma urea nitroge n measurement (mass/volume)Ordered By: Dev Gutierrez on 09-17-2024 Urea nitrogen [Mass/Vol] 26 mg/dL High 4-19 [facility] Sodium levelOrdered By: Dev Gutierrez on 09-17-2024 Sodium [Moles/Vol] 141 mmol/L 133-145 [facility] Urinalysis, Completeon 09-17 BACTERIA 1+ /hpf Normal None Seen [facility] Comment on above: Order Comment: Performed By: #### L 100.0500, L500.2500 #### [facility] [address] [place], [address] EPI,SQUAMOUS 0-5 SEEN Normal 5-10 [facility] Comment on above: Order Comment: Performed By: #### L 100.0500, L500.2500 #### [facility] [address] [place], [address] WBC 25-50 SEEN Normal 0-5 [facility] Comment on above: Order Comment: Performed By: #### L 100.0500, L500.2500 #### [facility] [address] [place], [address] Mucus Ql (Urine sed) 0 SEEN Normal [facility] Comment on above: Order Comment: Performed By: #### L 100.0500, L500.2500 #### [facility] [address] [place], [address] RBC 0 SEEN Normal 0-5 [facility] Comment on above: Order Comment: Performed By: #### L 100.0500, L500.2500 #### [facility] [address] [place], [address] White blood cell (WBC) count Ordered By: Dev Gutierrez on 09-17-2024 WBC (Bld) [#/Vol] 5.1 10*3/uL 4.4-11.0 [facility] Bilirubin Test strip Ql (U)O rdered By: Dev Gutierrez on 09-16-2024 Bilirubin Ql (U) Negative Negative [facility] Ketones Test strip Ql (U)Ord ered By: Dev Gutierrez on 09-16-2024 Ketones Ql (U) Negative Negative [facility] Microscopic analysis of urin e for red blood cells (RBC)Ordered By: Dev Gutierrez on 09-16-2024 Microscopic analysis of urine for red blood cells (RBC) 0 SEEN /hpf 0-5 [facility] Mucus LM Ql (Urine sed)Order ed By: Dev Gutierrez on 09-16-2024 Mucus Ql (Urine sed) 0 SEEN /hpf [facility] Nitrite Test strip Ql (U)Ord ered By: Dev Gutierrez on 09-16-2024 Nitrite Ql (U) Positive High Negative [facility] Protein Test strip Ql (U)Ord ered By: Dev Gutierrez on 09-16-2024 Protein Ql (U) 15 mg/dl High Negative [facility] Squamous epithelial cells de tection in urine sediment by light microscopyOrdered By: Dev Gutierrez on 09-16-2024 Epithelial cells.squamous LM Ql (Urine sed) 0-5 SEEN /hpf 5-10 [facility] Urine clarityOrdered By: Danielle Gutierrez on 09-16-2024 Clarity (U) Clear Clear [facility] Urine color determinationOrd ered By: Dev Gutierrez on 09-16-2024 Color (U) Yellow Yellow [facility] Urine cultureOrdered By: Danielle Gutierrez on 09-16-2024 Bacteria identified Cx Nom (U) Presumptive E. coli Abnormal [facility] Urine glucose detectionOrder ed By: Dev Gutierrez on 09-16-2024 Glucose Ql (U) Normal mg/dl Normal [facility] Urine leukocyte esterase det ection by dipstickOrdered By: Dev Gutierrez on 09-16-2024 Leukocyte esterase Test strip Ql (U) 500 /ul High Negative [facility] Urine pHOrdered By: Dev rodriguez on 09-16-2024 pH (U) 6.0 [pH] 5.0 - 8.0 [facility] Urine sediment bacteria coun t by microscopy (number/high power field)Ordered By: Dev Gutierrez on 09-16-2024 Bacteria LM.HPF (Urine sed) [#/Area] 1 /[HPF] None Seen [facility] Urine specific gravity measu rementOrdered By: Dev Gutierrez on 09-16-2024 Specific gravity (U) [Rel density] 1.010 1.002-1.030 [facility] Urine urobilinogen measureme ntOrdered By: Dev Gutierrez on 09-16-2024 Urobilinogen Ql (U) Normal mg/dl Normal [facility] White blood cell countOrdere d By: Dev Gutierrez on 09-16-2024 White blood cell count 25-50 SEEN /hpf 0-5 [facility] Serum or plasma uric acid me asurement (mass/volume)Ordered By: Dev Gutierrez on 09-11-2024 Urate [Mass/Vol] 3.0 mg/dL 2.6-6.0 [facility] Comment on above: The drugs N-Acetylcy steine and Metamizole may falsely depress this assay. Uric Acidon 09-11-2024 URIC 3.0 mg/dL Normal 2.6-6.0 [facility] Comment on above: Order Comment: Result Comment: The drugs N-Acetylcysteine and Metamizole may falsely depress this assay. Performed By: #### L 500.4050, L501.9520, L100.0500 #### [facility] [address] [place], [address] Anion gap in Serum or Plasma Ordered By: Dev Gutierrez on 09-03-2024 Anion gap [Moles/Vol] 9 mmol/L - [facility] BUN/creatinine ratioOrdered By: Dev Gutierrez on 09-03-2024 Urea nitrogen/Creatinine [Mass ratio] 28.9 mg/mg High - [facility] Basic Metabolic Profile (BMP )on 09-03-2024 BUN/CRE 28.9 RATIO High - [facility] Comment on above: Order Comment: - Performed By: #### L 500.4050, L501.9520, L100.0500 #### [facility] [address] [place], [address] Calcium [Mass/Vol] 9.4 mg/dL Normal 7.6-11.0 [facility] Comment on above: Order Comment: - Performed By: #### L 500.4050, L501.9520, L100.0500 #### [facility] [address] [place], [address] Chloride [Moles/Vol] 108 mmol/L Normal 98-108 [facility] Comment on above: Order Comment: - Performed By: #### L 500.4050, L501.9520, L100.0500 #### [facility] [address] [place], [address] CO2 [Moles/Vol] 24.7 mmol/L Normal 21.0-32.0 [facility] Comment on above: Order Comment: - Performed By: #### L 500.4050, L501.9520, L100.0500 #### [facility] [address] [place], [address] Creatinine [Mass/Vol] 1.08 mg/dL Normal 0.70-1.20 [facility] Comment on above: Order Comment: Performed By: #### L 500.4050, L501.9520, L100.0500 #### [facility] [address] [place], [address] GAP 9 Normal 5-15 [facility] Comment on above: Order Comment: Performed By: #### L 500.4050, L501.9520, L100.0500 #### [facility] [address] [place], [address] GFR/1.73 sq M.predicted among non-blacks MDRD (S/P/Bld) [Vol rate/Area] 51 mL/min/{1.73_m2} Low >60 [facility] Comment on above: Order Comment: Result Comment: mL/m in/1.73m2 CKD-EPI Creatinine Equation (2020) Performed By: #### L 500.4050, L501.9520, L100.0500 #### [facility] [address] [place], [address] Glucose [Mass/Vol] 109 mg/dL High 70-99 [facility] Comment on above: Order Comment: Performed By: #### L 500.4050, L501.9520, L100.0500 #### [facility] [address] [place], [address] Potassium [Moles/Vol] 4.3 mmol/L Normal 3.3-5.1 [facility] Comment on above: Order Comment: Performed By: #### L 500.4050, L501.9520, L100.0500 #### [facility] [address] [place], [address] Sodium [Moles/Vol] 142 mmol/L Normal 133-145 [facility] Comment on above: Order Comment: Performed By: #### L 500.4050, L501.9520, L100.0500 #### [facility] [address] [place], [address] Urea nitrogen [Mass/Vol] 31 mg/dL High 4-19 [facility] Comment on above: Order Comment: Performed By: #### L 500.4050, L501.9520, L100.0500 #### [facility] [address] [place], [address] CBC-Complete Blood Cnt No Di ffon 09-03-2024 Erythrocyte distribution width (RBC) [Ratio] 13.6 % Normal 11.6-14.6 [facility] Comment on above: Order Comment: Performed By: #### L 500.4050, L501.9520, L100.0500 #### [facility] [address] [place], [address] Hematocrit (Bld) [Volume fraction] 29.9 % Low 37-47 [facility] Comment on above: Order Comment: Performed By: #### L 500.4050, L501.9520, L100.0500 #### [facility] [address] [place], [address] Hemoglobin (Bld) [Mass/Vol] 9.5 g/dL Low 12.0-15.0 [facility] Comment on above: Order Comment: Performed By: #### L 500.4050, L501.9520, L100.0500 #### [facility] [address] [place], [address] MCH (RBC) [Entitic mass] 31.0 pg Normal 27.0-32.0 [facility] Comment on above: Order Comment: Performed By: #### L 500.4050, L501.9520, L100.0500 #### [facility] [address] [place], [address] MCHC (RBC) [Mass/Vol] 31.8 g/dL Low 32-36 [facility] Comment on above: Order Comment: - Performed By: #### L 500.4050, L501.9520, L100.0500 #### [facility] [address] [place], [address] MCV (RBC) [Entitic vol] 97.7 fL Normal 81-99 [facility] Comment on above: Order Comment: - Performed By: #### L 500.4050, L501.9520, L100.0500 #### [facility] [address] [place], [address] Platelet mean volume (Bld) [Entitic vol] 10.3 fL Normal 6.2-12.0 [facility] Comment on above: Order Comment: Performed By: #### L 500.4050, L501.9520, L100.0500 #### [facility] [address] [place], [address] Platelets (Bld) [#/Vol] 145 10*3/uL Low 150-450 [facility] Comment on above: Order Comment: Performed By: #### L 500.4050, L501.9520, L100.0500 #### [facility] [address] [place], [address] RBC (Bld) [#/Vol] 3.06 10*6/uL Low 4.2-5.4 [facility] Comment on above: Order Comment: Performed By: #### L 500.4050, L501.9520, L100.0500 #### [facility] [address] [place], [address] RDW SD 48.5 fl High 35.1-43.9 [facility] Comment on above: Order Comment: - Performed By: #### L 500.4050, L501.9520, L100.0500 #### [facility] [address] [place], [place], [address] WBC (Bld) [#/Vol] 5.0 10*3/uL Normal 4.4-11.0 [facility] Comment on above: Order Comment: Performed By: #### L 500.4050, L501.9520, L100.0500 #### [facility] [address] [place], [address] Carbon dioxide, total [Moles /volume] in Central venous bloodOrdered By: Dev Gutierrez on 09-03-2024 CO2 [Moles/Vol] 24.7 mmol/L 21.0-32.0 [facility] Chloride assayOrdered By: Morris on 09-03-2024 Chloride [Moles/Vol] 108 mmol/L 98-108 [facility] Erythrocyte distribution wid th ratioOrdered By: Dev Gutierrez on 09-03-2024 Erythrocyte distribution width (RBC) [Ratio] 13.6 % 11.6-14.6 [facility] Erythrocyte distribution wid th standard deviationOrdered By: Dev Gutierrez on 09-03-2024 Erythrocyte distribution width (RBC) [Ratio] 48.5 fl High 35.1-43.9 [facility] Glomerular filtration rate ( GFR) estimation/1.73 sq m using serum, plasma, or whole bOrdered By: Dev Gutierrez on 09-03-2024 GFR/1.73 sq M.predicted among non-blacks MDRD (S/P/Bld) [Vol rate/Area] 51 mL/min/{1.73_m2} Low >60 [facility] Comment on above: mL/min/1.73m2 CKD-EP I Creatinine Equation (2020) Hematocrit Auto (Bld) [Volum e fraction]Ordered By: Dev Gutierrez on 09-03-2024 Hematocrit (Bld) [Volume fraction] 29.9 % Low 37-47 [facility] Hemoglobin measurementOrdere d By: Dev Gutierrez on 09-03-2024 Hemoglobin (Bld) [Mass/Vol] 9.5 g/dL Low 12.0-15.0 [facility] Influenza virus A and B and SARS-CoV-2 (COVID-19) and Respiratory syncytial virus RNAOrdered By: Dve Gutierrez on 09-03-2024 SARS-CoV-2 (COVID-19) RNA MARLO+probe Ql (Unsp spec) [facility] M100.678on 09-03-2024 M100.678 Pending SARS-CoV-2 (COVID 19) Negative INFLUENZA A Negative INFLUENZA B Negative RSV PCR Negative Normal [facility] Comment on above: Performed By: #### L 500.4050, L501.9520, L100.0500 #### [facility] [address] [place], [address] MCV (mean corpuscular volume ) determinationOrdered By: Dev Gutierrez on 09-03-2024 MCV (RBC) [Entitic vol] 97.7 fL 81-99 [facility] Mean corpuscular hemoglobin (MCH) determinationOrdered By: Dev Gutierrez on 09-03-2024 MCH (RBC) [Entitic mass] 31.0 pg 27.0-32.0 [facility] Mean corpuscular hemoglobin concentration (MCHC) determinationOrdered By: Dev Gutierrez on 09-03-2024 MCHC (RBC) [Mass/Vol] 31.8 g/dL Low 32-36 [facility] Mean platelet volume determi nationOrdered By: Dev Gutierrez on 09-03-2024 Platelet mean volume (Bld) [Entitic vol] 10.3 fL 6.2-12.0 [facility] Platelet countOrdered By: Morris on 09-03-2024 Platelets (Bld) [#/Vol] 145 10*3/uL Low 150-450 [facility] Potassium measurement (mass/ volume)Ordered By: Dev Gutierrez on 09-03-2024 Potassium (Unsp spec) [Mass/Vol] 4.3 mmol/L 3.3-5.1 [facility] RBC Auto (Bld) [#/Vol]Ordere d By: Dev Gutierrez on 09-03-2024 RBC (Bld) [#/Vol] 3.06 10*6/uL Low 4.2-5.4 [facility] Serum creatinine measurement (mass/volume)Ordered By: Dev Gutierrez on 09-03-2024 Creatinine [Mass/Vol] 1.08 mg/dL 0.70-1.20 [facility] Serum glucose measurement (m ass/volume)Ordered By: Dev Gutierrez on 09-03-2024 Glucose [Mass/Vol] 109 mg/dL High 70-99 [facility] Serum or plasma calcium maude urement (mass/volume)Ordered By: Dev Gutierrez on 09-03-2024 Calcium [Mass/Vol] 9.4 mg/dL 7.6-11.0 [facility] Serum or plasma urea nitroge n measurement (mass/volume)Ordered By: Dev Gutierrez on 09-03-2024 Urea nitrogen [Mass/Vol] 31 mg/dL High 4-19 [facility] Sodium levelOrdered By: Dev Gutierrez on 09-03-2024 Sodium [Moles/Vol] 142 mmol/L 133-145 [facility] White blood cell (WBC) count Ordered By: Dev Gutierrez on 09-03-2024 WBC (Bld) [#/Vol] 5.0 10*3/uL 4.4-11.0 [facility] Anion gap in Serum or Plasma Ordered By: Jack Rutledge on 08-13-2024 Anion gap [Moles/Vol] 11 mmol/L 5-15 [facility] BUN/creatinine ratioOrdered By: Jack Rutledge on 08-13-2024 Urea nitrogen/Creatinine [Mass ratio] 26.2 mg/mg High 10-20 [facility] Bilirubin, totalOrdered By: Jack Rutledge on 08-13-2024 Bilirubin [Mass/Vol] 1.12 mg/dL 0.00-1.30 [facility] CBC-Complete Blood Cnt No Di ffon 08-13-2024 Erythrocyte distribution width (RBC) [Ratio] 14.3 % Normal 11.6-14.6 [facility] Comment on above: Order Comment: [id number] Performed By: #### L 500.4050, L501.9520, L100.0500 #### [facility] [address] [place], [address] Hematocrit (Bld) [Volume fraction] 29.7 % Low 37-47 [facility] Comment on above: Order Comment: Performed By: #### L 500.4050, L501.9520, L100.0500 #### [facility] [address] [place], [address] Hemoglobin (Bld) [Mass/Vol] 9.9 g/dL Low 12.0-15.0 [facility] Comment on above: Order Comment: Performed By: #### L 500.4050, L501.9520, L100.0500 #### [facility] [address] [place], [address] MCH (RBC) [Entitic mass] 32.7 pg High 27.0-32.0 [facility] Comment on above: Order Comment: Performed By: #### L 500.4050, L501.9520, L100.0500 #### [facility] [address] [place], [address] MCHC (RBC) [Mass/Vol] 33.3 g/dL Normal 32-36 [facility] Comment on above: Order Comment: Performed By: #### L 500.4050, L501.9520, L100.0500 #### [facility] [address] [place], [address] MCV (RBC) [Entitic vol] 98.0 fL Normal 81-99 [facility] Comment on above: Order Comment: Performed By: #### L 500.4050, L501.9520, L100.0500 #### [facility] [address] [place], [address] Platelet mean volume (Bld) [Entitic vol] 10.0 fL Normal 6.2-12.0 [facility] Comment on above: Order Comment: Performed By: #### L 500.4050, L501.9520, L100.0500 #### [facility] [address] [place], [address] Platelets (Bld) [#/Vol] 149 10*3/uL Low 150-450 [facility] Comment on above: Order Comment: Performed By: #### L 500.4050, L501.9520, L100.0500 #### [facility] [address] [place], [address] RBC (Bld) [#/Vol] 3.03 10*6/uL Low 4.2-5.4 [facility] Comment on above: Order Comment: Performed By: #### L 500.4050, L501.9520, L100.0500 #### [facility] [address] [place], [address] RDW SD 50.4 fl High 35.1-43.9 [facility] Comment on above: Order Comment: Performed By: #### L 500.4050, L501.9520, L100.0500 #### [facility] [address] [place], [address] WBC (Bld) [#/Vol] 4.7 10*3/uL Normal 4.4-11.0 [facility] Comment on above: Order Comment: Performed By: #### L 500.4050, L501.9520, L100.0500 #### [facility] [address] [place], [address] Carbon dioxide, total [Moles /volume] in Central venous bloodOrdered By: Jack Rutledge on 08-13-2024 CO2 [Moles/Vol] 22.4 mmol/L 21.0-32.0 [facility] Chloride assayOrdered By: Shauna Rutledge on 08-13-2024 Chloride [Moles/Vol] 107 mmol/L 98-108 [facility] Comprehensive Metabolic Prof ilon 08-13-2024 Albumin [Mass/Vol] 3.8 g/dL Normal 3.4-4.8 [facility] Comment on above: Order Comment: Performed By: #### L 500.4050, L501.9520, L100.0500 #### [facility] [address] [place], [address] Albumin/Globulin [Mass ratio] 1.6 {ratio} Normal 0.9-2.4 [facility] Comment on above: Order Comment: Performed By: #### L 500.4050, L501.9520, L100.0500 #### [facility] [address] [place], [address] ALK PHOS 79 U/L Normal 35-104 [facility] Comment on above: Order Comment: Performed By: #### L 500.4050, L501.9520, L100.0500 #### [facility] [address] [place], [address] ALT [Catalytic activity/Vol] 18 U/L Normal <=34 [facility] Comment on above: Order Comment: Performed By: #### L 500.4050, L501.9520, L100.0500 #### [facility] [address] [place], [address] AST [Catalytic activity/Vol] 27 U/L Normal <=31 [facility] Comment on above: Order Comment: Performed By: #### L 500.4050, L501.9520, L100.0500 #### [facility] [address] [place], [address] Bilirubin [Mass/Vol] 1.12 mg/dL Normal 0.00-1.30 [facility] Comment on above: Order Comment: Performed By: #### L 500.4050, L501.9520, L100.0500 #### [facility] [address] [place], [address] BUN/CRE 26.2 RATIO High 10-20 [facility] Comment on above: Order Comment: - Performed By: #### L 500.4050, L501.9520, L100.0500 #### [facility] [address] [place], [address] Calcium [Mass/Vol] 9.3 mg/dL Normal 7.6-11.0 [facility] Comment on above: Order Comment: - Performed By: #### L 500.4050, L501.9520, L100.0500 #### [facility] [address] [place], [address] Chloride [Moles/Vol] 107 mmol/L Normal 98-108 [facility] Comment on above: Order Comment: - Performed By: #### L 500.4050, L501.9520, L100.0500 #### [facility] [address] [place], [address] CO2 [Moles/Vol] 22.4 mmol/L Normal 21.0-32.0 [facility] Comment on above: Order Comment: - Performed By: #### L 500.4050, L501.9520, L100.0500 #### [facility] [address] [place], [address] Creatinine [Mass/Vol] 1.06 mg/dL Normal 0.70-1.20 [facility] Comment on above: Order Comment: - Performed By: #### L 500.4050, L501.9520, L100.0500 #### [facility] [address] [place], [address] GAP 11 Normal 5-15 [facility] Comment on above: Order Comment: Performed By: #### L 500.4050, L501.9520, L100.0500 #### [facility] [address] [place], [address] GFR/1.73 sq M.predicted among non-blacks MDRD (S/P/Bld) [Vol rate/Area] 52 mL/min/{1.73_m2} Low >60 [facility] Comment on above: Order Comment: Result Comment: mL/m in/1.73m2 CKD-EPI Creatinine Equation (2020) Performed By: #### L 500.4050, L501.9520, L100.0500 #### [facility] [address] [place], [address] Globulin (S) [Mass/Vol] 2.3 g/dL Normal 2.2-4.2 [facility] Comment on above: Order Comment: Performed By: #### L 500.4050, L501.9520, L100.0500 #### [facility] [address] [place], [address] Glucose [Mass/Vol] 94 mg/dL Normal 70-99 [facility] Comment on above: Order Comment: Performed By: #### L 500.4050, L501.9520, L100.0500 #### [facility] [address] [place], [address] Potassium [Moles/Vol] 4.1 mmol/L Normal 3.3-5.1 [facility] Comment on above: Order Comment: Performed By: #### L 500.4050, L501.9520, L100.0500 #### [facility] [address] [place], [address] Sodium [Moles/Vol] 140 mmol/L Normal 133-145 [facility] Comment on above: Order Comment: Performed By: #### L 500.4050, L501.9520, L100.0500 #### [facility] [address] [place], [address] T PROT 6.1 g/dL Normal 5.9-8.4 [facility] Comment on above: Order Comment: Performed By: #### L 500.4050, L501.9520, L100.0500 #### [facility] [address] [place], [address] Urea nitrogen [Mass/Vol] 28 mg/dL High 4-19 [facility] Comment on above: Order Comment: Performed By: #### L 500.4050, L501.9520, L100.0500 #### [facility] [address] [place], [address] Erythrocyte distribution wid th (RBC) [Ratio]Ordered By: Jack Rutledge on 08-13-2024 Erythrocyte distribution width (RBC) [Entitic vol] 50.4 fL High 35.1-43.9 [facility] Erythrocyte distribution wid th ratioOrdered By: Jack Rutledge on 08-13-2024 Erythrocyte distribution width (RBC) [Ratio] 14.3 % 11.6-14.6 [facility] Erythrocyte distribution wid th standard deviationOrdered By: Jack Rutledge on 08-13-2024 Erythrocyte distribution width (RBC) [Ratio] 50.4 fl High 35.1-43.9 [facility] GFR/1.73 sq M.predicted tyler g non-blacks MDRD (S/P/Bld) [Vol rate/Area]Ordered By: Jack Rutledge on 08-13-2024 Estimated GFR (MDRD) Non-Af Amer 52 Low >60 [facility] Comment on above: mL/min/1.73m2 CKD-EP I Creatinine Equation (2020) Glomerular filtration rate ( GFR) estimation/1.73 sq m using serum, plasma, or whole bOrdered By: Jack Rutledge on 08-13-2024 GFR/1.73 sq M.predicted among non-blacks MDRD (S/P/Bld) [Vol rate/Area] 52 mL/min/{1.73_m2} Low >60 [facility] Comment on above: mL/min/1.73m2 CKD-EP I Creatinine Equation (2020) Hematocrit Auto (Bld) [Volum e fraction]Ordered By: Jack Rutledge on 08-13-2024 Hematocrit (Bld) [Volume fraction] 29.7 % Low 37-47 [facility] Hemoglobin measurementOrdere d By: Jack Rutledge on 08-13-2024 Hemoglobin (Bld) [Mass/Vol] 9.9 g/dL Low 12.0-15.0 [facility] L503.0106on 08-13-2024 Cobalamin (Vitamin B12) [Mass/Vol] 744 pg/mL Normal 180-914 [facility] Comment on above: Order Comment: Performed By: #### L 100.0500 #### [facility] [address] [place] [address], [address] Laboratory - Chemistry and C hemistry - challengeOrdered By: Jack Rutledge on 08-13-2024 AST [Catalytic activity/Vol] 27 U/L <32 [facility] MCV (mean corpuscular volume ) determinationOrdered By: Jack Rultedge on 08-13-2024 MCV (RBC) [Entitic vol] 98.0 fL 81-99 [facility] Mean corpuscular hemoglobin (MCH) determinationOrdered By: Jack Rutledge on 08-13-2024 MCH (RBC) [Entitic mass] 32.7 pg High 27.0-32.0 [facility] Mean corpuscular hemoglobin concentration (MCHC) determinationOrdered By: Jack Rutledge on 08-13-2024 MCHC (RBC) [Mass/Vol] 33.3 g/dL 32-36 [facility] Mean platelet volume determi nationOrdered By: Jack Rutledge on 08-13-2024 Platelet mean volume (Bld) [Entitic vol] 10.0 fL 6.2-12.0 [facility] Platelet countOrdered By: Shauna Rutledge on 08-13-2024 Platelets (Bld) [#/Vol] 149 10*3/uL Low 150-450 [facility] Potassium (Unsp spec) [Mass/ Vol]Ordered By: Jack Rutledge on 08-13-2024 Potassium [Moles/Vol] 4.1 mmol/L 3.3-5.1 [facility] Potassium measurement (mass/ volume)Ordered By: Jack Rutledge on 08-13-2024 Potassium (Unsp spec) [Mass/Vol] 4.1 mmol/L 3.3-5.1 [facility] RBC Auto (Bld) [#/Vol]Ordere d By: Jack Rutledge on 08-13-2024 RBC (Bld) [#/Vol] 3.03 10*6/uL Low 4.2-5.4 [facility] Serum creatinine measurement (mass/volume)Ordered By: Jack Rutledge on 08-13-2024 Creatinine [Mass/Vol] 1.06 mg/dL 0.70-1.20 [facility] Serum globulin measurementOr dered By: Jack Rutledge on 08-13-2024 Globulin (S) [Mass/Vol] 2.3 g/dL 2.2-4.2 [facility] Serum glucose measurement (m ass/volume)Ordered By: Jack Rutledge on 08-13-2024 Glucose [Mass/Vol] 94 mg/dL 70-99 [facility] Serum or plasma alanine tovar otransferase (ALT) measurementOrdered By: Jack Rutledge on 08-13-2024 ALT [Catalytic activity/Vol] 18 U/L <35 [facility] Serum or plasma albumin maude urement (mass/volume)Ordered By: Jack Rutledge on 08-13-2024 Albumin [Mass/Vol] 3.8 g/dL 3.4-4.8 [facility] Serum or plasma albumin/glob ulin mass ratioOrdered By: Jack Rutledge on 08-13-2024 Albumin/Globulin [Mass ratio] 1.6 {ratio} 0.9-2.4 [facility] Serum or plasma alkaline nilton sphatase measurementOrdered By: Jack Rutledge on 08-13-2024 ALP [Catalytic activity/Vol] 79 U/L 35-104 [facility] Serum or plasma calcium maude urement (mass/volume)Ordered By: Jack Rutledge on 08-13-2024 Calcium [Mass/Vol] 9.3 mg/dL 7.6-11.0 [facility] Serum or plasma urea nitroge n measurement (mass/volume)Ordered By: Jack Rutledge on 08-13-2024 Urea nitrogen [Mass/Vol] 28 mg/dL High 4-19 [facility] Sodium levelOrdered By: Nando Rutledge on 08-13-2024 Sodium [Moles/Vol] 140 mmol/L 133-145 [facility] TSH DL <= 0.005 mIU/L QnOrde red By: Jack Rutledge on 08-13-2024 Thyroid Stimulating Hormone (TSH) 9.140 uIU/mL High 0.300-4.200 [facility] TSH Qn 9.140 uIU/mL High 0.300-4.200 [facility] Thyroid Stim Hormone (TSH)on 08-13-2024 TSH 9.140 uIU/mL High 0.300-4.200 [facility] Comment on above: Order Comment: Performed By: #### L 100.0500 #### [facility] [address] [place], [address] Total proteinOrdered By: Balwinder Rutledge on 08-13-2024 Protein [Mass/Vol] 6.1 g/dL 5.9-8.4 [facility] Vitamin B12 ser/plasOrdered By: Jack Rutledge on 08-13-2024 Cobalamin (Vitamin B12) [Mass/Vol] 744 pg/mL 180-914 [facility] White blood cell (WBC) count Ordered By: Jack Rutledge on 08-13-2024 WBC (Bld) [#/Vol] 4.7 10*3/uL 4.4-11.0 [facility] Vitamin B12 ser/plasOrdered By: Dev Gutierrez on 07-30-2024 Cobalamin (Vitamin B12) [Mass/Vol] 802 pg/mL Normal 180-914 [facility] Comment on above: Order Comment: Performed By: #### L 100.0500 #### [facility] [address] [place], [address] Urine Cultureon 07-26-2024 URC Presumptive E. coli [place] Count >100,000 Presumptive E. coli: REACTION Ampicillin [...] TMP SMX Islt PARMINDER <=20 S Normal [facility] Comment on above: Performed By: #### L 100.0500 #### [facility] [address] [place], [address] Bilirubin Test strip Ql (U)O rdered By: Dev Gutierrez on 07-24-2024 Bilirubin Ql (U) Negative Negative [facility] Epithelial cells.squamous LM Ql (Urine sed)Ordered By: Dev Gutierrez on 07-24-2024 Epithelial cells.squamous LM.HPF (Urine sed) [#/Area] 0 /[HPF] 5-10 [facility] Glucose Ql (U)Ordered By: Morris on 07-24-2024 Urine Glucose (UA) Normal mg/dl Normal [facility] Ketones Test strip Ql (U)Ord ered By: Dev Gutierrez on 07-24-2024 Ketones Ql (U) Negative Negative [facility] Microscopic analysis of urin e for red blood cells (RBC)Ordered By: Dev Gutierrez on 07-24-2024 Microscopic analysis of urine for red blood cells (RBC) 0 SEEN /hpf 0-5 [facility] Urine RBC 0 SEEN /hpf 0-5 [facility] Mucus LM Ql (Urine sed)Order ed By: Dev Gutierrez on 07-24-2024 Mucus Ql (Urine sed) 0 SEEN /hpf [facility] Nitrite Test strip Ql (U)Ord ered By: Dev Gutierrez on 03-11-2025 Nitrite Ql (U) Positive High Negative [facility] Protein Test strip Ql (U)Ord ered By: Dev Gutierrez on 07-24-2024 Protein Ql (U) 30 mg/dl High Negative [facility] Squamous epithelial cells de tection in urine sediment by light microscopyOrdered By: Dev Gutierrez on 07-24-2024 Epithelial cells.squamous LM Ql (Urine sed) 0-5 SEEN /hpf 5-10 [facility] Urinalysis, Completeon 07-24 BACTERIA 4+ /hpf Normal None Seen [facility] Comment on above: Order Comment: Performed By: #### L 100.0500 #### [facility] [address] [place], [address] EPI,SQUAMOUS 0-5 SEEN Normal 5-10 [facility] Comment on above: Order Comment: Performed By: #### L 100.0500 #### [facility] [address] [place], [address] RBC 0 SEEN Normal 0-5 [facility] Comment on above: Order Comment: Performed By: #### L 100.0500 #### [facility] [address] [place], [address] WBC 25-50 SEEN Normal 0-5 [facility] Comment on above: Order Comment: Performed By: #### L 100.0500 #### [facility] [address] [place], [address] Mucus Ql (Urine sed) 0 SEEN Normal [facility] Comment on above: Order Comment: Performed By: #### L 100.0500 #### [facility] [address] [place], [address] Urine blood detectionOrdered By: Dev Gutierrez on 07-24-2024 Urine Occult Blood Negative Negative [facility] Urine clarityOrdered By: Danielle Gutierrez on 07-24-2024 Clarity (U) Clear Clear [facility] Urine color determinationOrd ered By: Dev Gutierrez on 07-24-2024 Color (U) Yellow Yellow [facility] Urine cultureOrdered By: Danielle Gutierrez on 07-24-2024 Bacteria identified Cx Nom (U) Presumptive E. coli Abnormal [facility] Urine glucose detectionOrder ed By: Dev Gutierrez on 07-24-2024 Glucose Ql (U) Normal mg/dl Normal [facility] Urine leukocyte esterase det ection by dipstickOrdered By: Dev Gutierrez on 07-24-2024 Leukocyte esterase Test strip Ql (U) 500 /ul High Negative [facility] Urine pHOrdered By: Dev rodriguez on 07-24-2024 pH (U) 6.0 [pH] 5.0 - 8.0 [facility] Urine sediment bacteria coun t by microscopy (number/high power field)Ordered By: Dev Gutierrez on 07-24-2024 Bacteria LM.HPF (Urine sed) [#/Area] 4 /[HPF] None Seen [facility] Urine specific gravity measu rementOrdered By: Dev Gutierrez on 07-24-2024 Specific gravity (U) [Rel density] 1.015 1.002-1.030 [facility] Urine urobilinogen measureme ntOrdered By: Dev Gutierrez on 07-24-2024 Urobilinogen Ql (U) Normal mg/dl Normal [facility] Urobilinogen Ql (U)Ordered B y: Dev Gutierrez on 07-24-2024 Urine Urobilinogen Normal mg/dl Normal [facility] White blood cell countOrdere d By: Dev Gutierrez on 07-24-2024 Urine WBC 25-50 SEEN /hpf 0-5 [facility] White blood cell count 25-50 SEEN /hpf 0-5 [facility] Urine Cultureon 07-14-2024 [facility] Presumptive E. coli [place] Count >100,000 Presumptive E. coli: REACTION Ampicillin [...] TMP SMX Islt PARMINDER <=20 S Normal [facility] Comment on above: Performed By: #### L 100.0500 #### [facility] [address] [place], [place], [id number] Urinalysis, Completeon 07-12 RBC 0 SEEN Normal 0-5 [facility] Comment on above: Order Comment: Performed By: #### L 100.0500 #### [facility] [address] [place], [place], [id number] BUN/creatinine ratioOrdered By: Dev Gutierrez on 07-11-2024 Urea nitrogen/Creatinine [Mass ratio] 23.3 mg/mg High 10-20 [facility] Bilirubin Test strip Ql (U)O rdered By: Dev Gutierrez on 07-11-2024 Bilirubin Ql (U) Negative Negative [facility] Bilirubin, totalOrdered By: Dev Gutierrez on 07-11-2024 Bilirubin [Mass/Vol] 0.65 mg/dL 0.00-1.30 [facility] CBC-Complete Blood Cnt No Di ffon 07-11-2024 Erythrocyte distribution width (RBC) [Ratio] 14.6 % Normal 11.6-14.6 [facility] Comment on above: Order Comment: Performed By: #### L 100.0500 #### [facility] [address] [place], [address] Hematocrit (Bld) [Volume fraction] 29.6 % Low 37-47 [facility] Comment on above: Order Comment: Performed By: #### L 100.0500 #### [facility] [address] [place], [place], [id number] (353) Hemoglobin (Bld) [Mass/Vol] 10.1 g/dL Low 12.0-15.0 [facility] Comment on above: Order Comment: - Performed By: #### L 100.0500 #### [facility] [address] [place], [address] MCH (RBC) [Entitic mass] 32.7 pg High 27.0-32.0 [facility] Comment on above: Order Comment: - Performed By: #### L 100.0500 #### [facility] [address] [place], [address] MCHC (RBC) [Mass/Vol] 34.1 g/dL Normal 32-36 [facility] Comment on above: Order Comment: - Performed By: #### L 100.0500 #### [facility] [address] [place], [address] MCV (RBC) [Entitic vol] 95.8 fL Normal 81-99 [facility] Comment on above: Order Comment: - Performed By: #### L 100.0500 #### [facility] [address] [place], [address] Platelet mean volume (Bld) [Entitic vol] 9.6 fL Normal 6.2-12.0 [facility] Comment on above: Order Comment: - Performed By: #### L 100.0500 #### [facility] [address] [place], [address] Platelets (Bld) [#/Vol] 176 10*3/uL Normal 150-450 [facility] Comment on above: Order Comment: - Performed By: #### L 100.0500 #### [facility] [address] [place], [address] RBC (Bld) [#/Vol] 3.09 10*6/uL Low 4.2-5.4 [facility] Comment on above: Order Comment: - Performed By: #### L 100.0500 #### [facility] [address] [place], [address] RDW SD 48.5 fl High 35.1-43.9 [facility] Comment on above: Order Comment: Performed By: #### L 100.0500 #### [facility] [address] [place], [address] WBC (Bld) [#/Vol] 7.2 10*3/uL Normal 4.4-11.0 [facility] Comment on above: Order Comment: Performed By: #### L 100.0500 #### [facility] [address] [place], [address] Carbon dioxide measurementOr dered By: Dev Gutierrez on 07-11-2024 CO2 [Moles/Vol] 21.1 mmol/L Low 22.0-29.0 [facility] Chloride measurementOrdered By: Dev Gutierrez on 07-11-2024 Chloride [Moles/Vol] 109 mmol/L High 96-108 [facility] Comprehensive Metabolic Prof ilon 07-11-2024 Albumin [Mass/Vol] 3.7 g/dL Normal 3.4-4.8 [facility] Comment on above: Order Comment: Performed By: #### L 100.0500 #### [facility] [address] [place], [address] Albumin/Globulin [Mass ratio] 1.8 {ratio} Normal 0.9-2.4 [facility] Comment on above: Order Comment: Performed By: #### L 100.0500 #### [facility] [address] [place], [address] ALK PHOS 82 U/L Normal 35-104 [facility] Comment on above: Order Comment: Performed By: #### L 100.0500 #### [facility] [address] [place], [address] ALT [Catalytic activity/Vol] 13 U/L Normal <=34 [facility] Comment on above: Order Comment: Performed By: #### L 100.0500 #### [facility] [address] [place], [address] Anion gap [Moles/Vol] 11 mmol/L Normal 5-15 [facility] Comment on above: Order Comment: Performed By: #### L 100.0500 #### [facility] [address] [place], [address] AST [Catalytic activity/Vol] 21 U/L Normal <=31 [facility] Comment on above: Order Comment: Performed By: #### L 100.0500 #### [facility] [address] [place], [address] Bilirubin [Mass/Vol] 0.65 mg/dL Normal 0.00-1.30 [facility] Comment on above: Order Comment: Performed By: #### L 100.0500 #### [facility] [address] [place], [address] BUN/CRE 23.3 RATIO High 10-20 [facility] Comment on above: Order Comment: Performed By: #### L 100.0500 #### [facility] [address] [place], [address] Calcium [Mass/Vol] 8.9 mg/dL Normal 7.6-11.0 [facility] Comment on above: Order Comment: Performed By: #### L 100.0500 #### [facility] [address] [place], [address] Chloride [Moles/Vol] 109 mmol/L High 96-108 [facility] Comment on above: Order Comment: Performed By: #### L 100.0500 #### [facility] [address] [place], [address] CO2 [Moles/Vol] 21.1 mmol/L Low 22.0-29.0 [facility] Comment on above: Order Comment: Performed By: #### L 100.0500 #### [facility] [address] [place], [address] Creatinine [Mass/Vol] 0.9 mg/dL Normal 0.6-1.0 [facility] Comment on above: Order Comment: Performed By: #### L 100.0500 #### [facility] [address] [place], [address] GFR/1.73 sq M.predicted among non-blacks MDRD (S/P/Bld) [Vol rate/Area] 61 mL/min/{1.73_m2} Normal >60 [facility] Comment on above: Order Comment: Result Comment: mL/m in/1.73m2 CKD-EPI Creatinine Equation (2020) Performed By: #### L 100.0500 #### [facility] [address] [place], [address] Globulin (S) [Mass/Vol] 2.1 g/dL Low 2.2-4.2 [facility] Comment on above: Order Comment: Performed By: #### L 100.0500 #### [facility] [address] [place], [address] Glucose [Mass/Vol] 96 mg/dL Normal 70-99 [facility] Comment on above: Order Comment: Performed By: #### L 100.0500 #### [facility] [address] [place], [address] Potassium [Moles/Vol] 3.7 mmol/L Normal 3.3-5.1 [facility] Comment on above: Order Comment: Performed By: #### L 100.0500 #### [facility] [address] [place], [address] Sodium [Moles/Vol] 141 mmol/L Normal 133-145 [facility] Comment on above: Order Comment: Performed By: #### L 100.0500 #### [facility] [address] [place], [address] T PROT 5.7 g/dL Low 5.9-8.4 [facility] Comment on above: Order Comment: Performed By: #### L 100.0500 #### [facility] [address] [place], [address] Urea nitrogen [Mass/Vol] 22 mg/dL High 4-19 [facility] Comment on above: Order Comment: Performed By: #### L 100.0500 #### [facility] [address] [place], [address] Creatinine [Moles/Vol]Ordere d By: Dev Gutierrez on 07-11-2024 Creatinine [Mass/Vol] 0.9 mg/dL 0.6-1.0 [facility] Epithelial cells.squamous LM Ql (Urine sed)Ordered By: Dev Gutierrez on 07-11-2024 Epithelial cells.squamous LM.HPF (Urine sed) [#/Area] 0 /[HPF] 5-10 [facility] Erythrocyte distribution wid th (RBC) [Ratio]Ordered By: Dev Gutierrez on 07-11-2024 Erythrocyte distribution width (RBC) [Entitic vol] 48.5 fL High 35.1-43.9 [facility] Erythrocyte distribution wid th ratioOrdered By: Dev Gutierrez on 07-11-2024 Erythrocyte distribution width (RBC) [Ratio] 14.6 % 11.6-14.6 [facility] Erythrocyte distribution wid th standard deviationOrdered By: Dev Gutierrez on 07-11-2024 Erythrocyte distribution width (RBC) [Ratio] 48.5 fl High 35.1-43.9 [facility] GFR/1.73 sq M.predicted tyler g non-blacks MDRD (S/P/Bld) [Vol rate/Area]Ordered By: Dev Gutierrez on 07-11-2024 Estimated GFR (MDRD) Non-Af Amer 61 >60 [facility] Comment on above: mL/min/1.73m2 CKD-EP I Creatinine Equation (2020) Glomerular filtration rate ( GFR) estimation/1.73 sq m using serum, plasma, or whole bOrdered By: Dev Gutierrez on 07-11-2024 GFR/1.73 sq M.predicted among non-blacks MDRD (S/P/Bld) [Vol rate/Area] 61 mL/min/{1.73_m2} >60 [facility] Comment on above: mL/min/1.73m2 CKD-EP I Creatinine Equation (2020) Glucose Ql (U)Ordered By: [place] on 07-11-2024 Urine Glucose (UA) Normal mg/dl Normal [facility] Hematocrit Auto (Bld) [Volum e fraction]Ordered By: Dev Gutierrez on 07-11-2024 Hematocrit (Bld) [Volume fraction] 29.6 % Low 37-47 [facility] Hemoglobin measurementOrdere d By: Dev Gutierrez on 07-11-2024 Hemoglobin (Bld) [Mass/Vol] 10.1 g/dL Low 12.0-15.0 [facility] Ketones Test strip Ql (U)Ord ered By: Dev Gutierrez on 07-11-2024 Ketones Ql (U) Negative Negative [facility] - Chemistry and C hemistry - challengeOrdered By: Dev Gutierrez on 07-11-2024 AST [Catalytic activity/Vol] 21 U/L <32 [facility] MCV (mean corpuscular volume ) determinationOrdered By: Dev Gutierrez on 07-11-2024 MCV (RBC) [Entitic vol] 95.8 fL 81-99 [facility] Mean corpuscular hemoglobin (MCH) determinationOrdered By: Dev Gutierrez on 07-11-2024 MCH (RBC) [Entitic mass] 32.7 pg High 27.0-32.0 [facility] Mean corpuscular hemoglobin concentration (MCHC) determinationOrdered By: Dev Gutierrez on 07-11-2024 MCHC (RBC) [Mass/Vol] 34.1 g/dL 32-36 [facility] Mean platelet volume determi nationOrdered By: Dev Gutierrez on 07-11-2024 Platelet mean volume (Bld) [Entitic vol] 9.6 fL 6.2-12.0 [facility] Microscopic analysis of urin e for red blood cells (RBC)Ordered By: Dev Gutierrez on 07-11-2024 Microscopic analysis of urine for red blood cells (RBC) 0 SEEN /hpf 0-5 [facility] Urine RBC 0 SEEN /hpf 0-5 [facility] Mucus LM Ql (Urine sed)Order ed By: Dev Gutierrez on 07-11-2024 Mucus Ql (Urine sed) 0 SEEN /hpf [facility] Nitrite Test strip Ql (U)Ord ered By: Dev Gutierrez on 07-11-2024 Nitrite Ql (U) Positive High Negative [facility] Platelet countOrdered By: Morris on 07-11-2024 Platelets (Bld) [#/Vol] 176 10*3/uL 150-450 [facility] Protein Test strip Ql (U)Ord ered By: Dev Gutierrez on 07-11-2024 Protein Ql (U) 15 mg/dl High Negative [facility] RBC Auto (Bld) [#/Vol]Ordere d By: Dev Gutierrez on 07-11-2024 RBC (Bld) [#/Vol] 3.09 10*6/uL Low 4.2-5.4 [facility] Serum globulin measurementOr dered By: Dev Gutierrez on 07-11-2024 Globulin (S) [Mass/Vol] 2.1 g/dL Low 2.2-4.2 [facility] Serum glucose measurement (m ass/volume)Ordered By: Dev Gutierrez on 07-11-2024 Glucose [Mass/Vol] 96 mg/dL 70-99 [facility] Serum or plasma alanine tovar otransferase (ALT) measurementOrdered By: Dev Gutierrez on 07-11-2024 ALT [Catalytic activity/Vol] 13 U/L <35 [facility] Serum or plasma albumin maude urement (mass/volume)Ordered By: Dev Gutierrez on 07-11-2024 Albumin [Mass/Vol] 3.7 g/dL 3.4-4.8 [facility] Serum or plasma albumin/glob ulin mass ratioOrdered By: Dev Gutierrez on 07-11-2024 Albumin/Globulin [Mass ratio] 1.8 {ratio} 0.9-2.4 [facility] Serum or plasma alkaline nilton sphatase measurementOrdered By: Dev Gutierrez on 07-11-2024 ALP [Catalytic activity/Vol] 82 U/L 35-104 [facility] Serum or plasma anion gap de termination (moles/volume)Ordered By: Dev Gutierrez on 07-11-2024 Anion gap [Moles/Vol] 11 mmol/L 5-15 [facility] Serum or plasma calcium maude urement (mass/volume)Ordered By: Dev Gutierrez on 07-11-2024 Calcium [Mass/Vol] 8.9 mg/dL 7.6-11.0 [facility] Serum or plasma creatinine m easurement (moles/volume)Ordered By: Dev Gutierrez on 07-11-2024 Creatinine [Moles/Vol] 0.9 mg/dL 0.6-1.0 [facility] Serum or plasma potassium me asurementOrdered By: Dev Gutierrez on 07-11-2024 Potassium [Moles/Vol] 3.7 mmol/L 3.3-5.1 [facility] Serum or plasma sodium measu rement (moles/volume)Ordered By: Dev Gutierrez on 07-11-2024 Sodium [Moles/Vol] 141 mmol/L 133-145 [facility] Serum or plasma urea nitroge n measurement (mass/volume)Ordered By: Dev Gutierrez on 07-11-2024 Urea nitrogen [Mass/Vol] 22 mg/dL High 4-19 [facility] Squamous epithelial cells de tection in urine sediment by light microscopyOrdered By: Dev Gutierrez on 07-11-2024 Epithelial cells.squamous LM Ql (Urine sed) 0 SEEN /hpf 5-10 [facility] Total proteinOrdered By: Danielle Gutierrez on 07-11-2024 Protein [Mass/Vol] 5.7 g/dL Low 5.9-8.4 [facility] Urine blood detectionOrdered By: Dev Gutierrez on 07-11-2024 Urine Occult Blood Negative Negative [facility] Urine clarityOrdered By: Danielle Gutierrez on 07-11-2024 Clarity (U) Sl. Cloudy Clear [facility] Urine color determinationOrd ered By: Dev Gutierrez on 07-11-2024 Color (U) Yellow Yellow [facility] Urine cultureOrdered By: Danielle Gutierrez on 07-11-2024 Bacteria identified Cx Nom (U) Presumptive E. coli Abnormal [facility] Urine glucose detectionOrder ed By: Dev Gutierrez on 07-11-2024 Glucose Ql (U) Normal mg/dl Normal [facility] Urine leukocyte esterase det ection by dipstickOrdered By: Dev Gutierrez on 07-11-2024 Leukocyte esterase Test strip Ql (U) 100 /ul High Negative [facility] Urine pHOrdered By: Dev rodriguez on 07-11-2024 pH (U) 6.5 [pH] 5.0 - 8.0 [facility] Urine sediment bacteria coun t by microscopy (number/high power field)Ordered By: Dev Gutierrez on 07-11-2024 Bacteria LM.HPF (Urine sed) [#/Area] 1 /[HPF] None Seen [facility] Urine specific gravity measu rementOrdered By: Dev Gutierrez on 07-11-2024 Specific gravity (U) [Rel density] 1.010 1.002-1.030 [facility] Urine urobilinogen measureme ntOrdered By: Dev Gutierrez on 07-11-2024 Urobilinogen Ql (U) Normal mg/dl Normal [facility] Urobilinogen Ql (U)Ordered B y: Dev Gutierrez on 07-11-2024 Urine Urobilinogen Normal mg/dl Normal [facility] White blood cell (WBC) count Ordered By: Dev Gutierrez on 07-11-2024 WBC (Bld) [#/Vol] 7.2 10*3/uL 4.4-11.0 [facility] White blood cell countOrdere d By: Dev Gutierrez on 07-11-2024 Urine WBC 5-10 SEEN /hpf 0-5 [facility] White blood cell count 5-10 SEEN /hpf 0-5 [facility] Basic Metabolic Profile (BMP )on 07-06-2024 BUN/CRE 18.7 RATIO Normal 10-20 [facility] Comment on above: Order Comment: Performed By: #### L 500.4050, L501.9520, L100.0500 #### [facility] [address] [place], [address] CA,Total 9.3 mg/dL Normal 8.5-10.1 [facility] Comment on above: Order Comment: Performed By: #### L 500.4050, L501.9520, L100.0500 #### [facility] [address] [place], [address] EST GFR - AA 63 mL/min Normal >60 [facility] Comment on above: Order Comment: Result Comment: Afri can [place] GFR Calc Performed By: #### L 500.4050, L501.9520, L100.0500 #### [facility] [address] [place], [address] GAP 5 Normal 5-15 [facility] Comment on above: Order Comment: Performed By: #### L 500.4050, L501.9520, L100.0500 #### [facility] [address] [place], [address] Blood urea nitrogen (BUN)/cr eatinine ratioOrdered By: Dev Gutierrez on 07-06-2024 Urea nitrogen/Creatinine [Mass ratio] 18.7 mg/mg 10- [facility] Carbon dioxide measurementOr dered By: Dev Gutierrez on 07-06-2024 CO2 [Moles/Vol] 23.0 mmol/L Normal 21.0-32.0 [facility] Comment on above: Order Comment: Performed By: #### L 500.4050, L501.9520, L100.0500 #### [facility] [address] [place], [address] Chloride measurementOrdered By: Dev Gutierrez on 07-06-2024 Chloride [Moles/Vol] 114 mmol/L High 98-107 [facility] Comment on above: Order Comment: Performed By: #### L 500.4050, L501.9520, L100.0500 #### [facility] [address] [place], [address] Estimated glomerular filtrat ion rate (GFR) AmericanOrdered By: Dev Gutierrez on 07-06-2024 Estimated GFR (MDRD) Amer 63 mL/min >60 [facility] Comment on above: GFR Calc Glomerular filtration rate ( GFR) estimationOrdered By: Dev Gutierrez on 07-06-2024 Estimated GFR (MDRD) Non-Af Amer 52 mL/min Low >60 [facility] Comment on above: Non- GFR Calc GFR/1.73 sq M.predicted among non-blacks MDRD (S/P/Bld) [Vol rate/Area] 52 mL/min/{1.73_m2} Low >60 [facility] Comment on above: Non- GFR Calc Order Comment: Result Comment: Non- GFR Calc Performed By: #### L 500.4050, L501.9520, L100.0500 #### [facility] [address] [place], [address] Glucose measurementOrdered B y: Dev Gutierrez on 07-06-2024 Glucose [Mass/Vol] 112 mg/dL High 74-106 [facility] Comment on above: Fasting Glucose resu lt from 100 to 125 mg/dL suggests IMPAIRED HOMEOSTASIS per A.D.A. criteria. Order Comment: Result Comment: Fast ing Glucose result from 100 to 125 mg/dL suggests IMPAIRED HOMEOSTASIS per A.D.A. criteria. Performed By: #### L 500.4050, L501.9520, L100.0500 #### [facility] [address] [place], [address] Potassium measurementOrdered By: Dev Gutierrez on 07-06-2024 Potassium [Moles/Vol] 3.8 mmol/L Normal 3.5-5.1 [facility] Comment on above: Order Comment: Performed By: #### L 500.4050, L501.9520, L100.0500 #### [facility] [address] [place], [address] Serum anion gap measurementO rdered By: Dev Gutierrez on 07-06-2024 Anion gap [Moles/Vol] 5 mmol/L 5-15 [facility] Serum or plasma calcium maude urement (mass/volume)Ordered By: Dev Gutierrez on 07-06-2024 Calcium [Mass/Vol] 9.3 mg/dL 8.5-10.1 [facility] Serum or plasma creatinine m easurement (mass/volume)Ordered By: Dev Gutierrez on 07-06-2024 Creatinine [Mass/Vol] 1.07 mg/dL High 0.55-1.02 [facility] Comment on above: The validity of the calculated GFR & GFRAA in patients over 70 years has not been determined. Clinical correlation is essential. Order Comment: Result Comment: The validity of the calculated GFR GFRAA in patients over 70 years has not been determined. Clinical correlation is essential. Performed By: #### L 500.4050, L501.9520, L100.0500 #### [facility] [address] [place], [address] Serum or plasma urea nitroge n measurement (mass/volume)Ordered By: Dev Gutierrez on 07-06-2024 Urea nitrogen [Mass/Vol] 20 mg/dL High 7-18 [facility] Comment on above: Order Comment: Performed By: #### L 500.4050, L501.9520, L100.0500 #### [facility] [address] [place], [place], [address] Sodium levelOrdered By: Dev Gutierrez on 07-06-2024 Sodium [Moles/Vol] 142 mmol/L Normal 136-145 [facility] Comment on above: Order Comment: Performed By: #### L 500.4050, L501.9520, L100.0500 #### [facility] [address] [place], [address] Albumin to globulin ratioOrd ered By: Dev Gutierrez on 07-02-2024 Albumin/Globulin [Mass ratio] 1.0 {ratio} 0.9-2.4 [facility] Bilirubin, totalOrdered By: Dev Gutierrez on 07-02-2024 Bilirubin [Mass/Vol] 1.20 mg/dL High 0.20-1.00 [facility] Comment on above: For patients on eltr ombopag therapy, use of Dimension [place] TBIL is not recommended. Blood urea nitrogen (BUN)/cr eatinine ratioOrdered By: Dev Gutierrez on 07-02-2024 Urea nitrogen/Creatinine [Mass ratio] 21.5 mg/mg High 10-20 [facility] CBC-Complete Blood Cnt No Di ffon 07-02-2024 Erythrocyte distribution width (RBC) [Ratio] 14.4 % Normal 11.6-14.6 [facility] Comment on above: Order Comment: Performed By: #### L 100.0500 #### [facility] [address] [place], [address] Hematocrit (Bld) [Volume fraction] 31.5 % Low 37-47 [facility] Comment on above: Order Comment: Performed By: #### L 100.0500 #### [facility] [address] [place], [address] Hemoglobin (Bld) [Mass/Vol] 9.9 g/dL Low 12.0-15.0 [facility] Comment on above: Order Comment: Performed By: #### L 100.0500 #### [facility] [address] [place], [address] MCH (RBC) [Entitic mass] 30.2 pg Normal 27.0-32.0 [facility] Comment on above: Order Comment: - Performed By: #### L 100.0500 #### [facility] [address] [place], [address] MCHC (RBC) [Mass/Vol] 31.4 g/dL Low 32-36 [facility] Comment on above: Order Comment: - Performed By: #### L 100.0500 #### [facility] [address] [place], [address] MCV (RBC) [Entitic vol] 96.0 fL Normal 81-99 [facility] Comment on above: Order Comment: Performed By: #### L 100.0500 #### [facility] [address] [place], [address] Platelet mean volume (Bld) [Entitic vol] 10.2 fL Normal 6.2-12.0 [facility] Comment on above: Order Comment: Performed By: #### L 100.0500 #### [facility] [address] [place], [address] Platelets (Bld) [#/Vol] 143 10*3/uL Low 150-450 [facility] Comment on above: Order Comment: - Performed By: #### L 100.0500 #### [facility] [address] [place], [address] RBC (Bld) [#/Vol] 3.28 10*6/uL Low 4.2-5.4 [facility] Comment on above: Order Comment: - Performed By: #### L 100.0500 #### [facility] [address] [place], [address] RDW SD 50.4 fl High 35.1-43.9 [facility] Comment on above: Order Comment: Performed By: #### L 100.0500 #### [facility] [address] [place], [address] WBC (Bld) [#/Vol] 4.8 10*3/uL Normal 4.4-11.0 [facility] Comment on above: Order Comment: Performed By: #### L 100.0500 #### [facility] [address] [place], [address] Carbon dioxide measurementOr dered By: Dev Gutierrez on 07-02-2024 CO2 [Moles/Vol] 19.0 mmol/L Low 21.0-32.0 [facility] Chloride measurementOrdered By: Dev Gutierrez on 07-02-2024 Chloride [Moles/Vol] 110 mmol/L High 98-107 [facility] Comprehensive Metabolic Prof ilon 07-02-2024 Albumin [Mass/Vol] 3.1 g/dL Low 3.2-5.0 [facility] Comment on above: Order Comment: Performed By: #### L 100.0500, L500.2500 #### [facility] [address] [place], [address] Albumin/Globulin [Mass ratio] 1.0 {ratio} Normal 0.9-2.4 [facility] Comment on above: Order Comment: Performed By: #### L 100.0500, L500.2500 #### [facility] [address] [place], [address] ALK P 68 U/L Normal 45-117 [facility] Comment on above: Order Comment: Performed By: #### L 100.0500, L500.2500 #### [facility] [address] [place] [place], [address] ALT [Catalytic activity/Vol] 20 U/L Normal 13-56 [facility] Comment on above: Order Comment: Performed By: #### L 100.0500, L500.2500 #### [facility] [address] [place], [address] AST [Catalytic activity/Vol] 22 U/L Normal 15-37 [facility] Comment on above: Order Comment: Performed By: #### L 100.0500, L500.2500 #### [facility] [address] [place], [address] Bilirubin [Mass/Vol] 1.20 mg/dL High 0.20-1.00 [facility] Comment on above: Order Comment: Result Comment: For patients on eltrombopag therapy, use of Dimension [place] TBIL is not recommended. Performed By: #### L 100.0500, L500.2500 #### [facility] [address] [place], [address] BUN/CRE 21.5 RATIO High 10-20 [facility] Comment on above: Order Comment: Performed By: #### L 100.0500, L500.2500 #### [facility] [address] [place], [address] CA,Total 8.6 mg/dL Normal 8.5-10.1 [facility] Comment on above: Order Comment: Performed By: #### L 100.0500, L500.2500 #### [facility] [address] [place], [address] Chloride [Moles/Vol] 110 mmol/L High 98-107 [facility] Comment on above: Order Comment: Performed By: #### L 100.0500, L500.2500 #### [facility] [address] [place], [address] CO2 [Moles/Vol] 19.0 mmol/L Low 21.0-32.0 [facility] Comment on above: Order Comment: Performed By: #### L 100.0500, L500.2500 #### [facility] [address] [place], [address] Creatinine [Mass/Vol] 1.44 mg/dL High 0.55-1.02 [facility] Comment on above: Order Comment: Result Comment: The validity of the calculated GFR GFRAA in patients over 70 years has not been determined. Clinical correlation is essential. Performed By: #### L 100.0500, L500.2500 #### [facility] [address] [place], [address] EST GFR - AA 45 mL/min Low >60 [facility] Comment on above: Order Comment: Result Comment: Afri can Kenyan GFR Calc Performed By: #### L 100.0500, L500.2500 #### [facility] [address] [place], [address] GAP 11 Normal 5-15 [facility] Comment on above: Order Comment: Performed By: #### L 100.0500, L500.2500 #### [facility] [address] [place], [address] GFR/1.73 sq M.predicted among non-blacks MDRD (S/P/Bld) [Vol rate/Area] 37 mL/min/{1.73_m2} Low >60 [facility] Comment on above: Order Comment: Result Comment: Non- GFR Calc Performed By: #### L 100.0500, L500.2500 #### [facility] [address] [place], [address] Globulin (S) [Mass/Vol] 3.2 g/dL Normal 2.2-4.2 [facility] Comment on above: Order Comment: Performed By: #### L 100.0500, L500.2500 #### [facility] [address] [place], [address] Glucose [Mass/Vol] 95 mg/dL Normal 74-106 [facility] Comment on above: Order Comment: Performed By: #### L 100.0500, L500.2500 #### [facility] [address] [place], [address] Potassium [Moles/Vol] 3.3 mmol/L Low 3.5-5.1 [facility] Comment on above: Order Comment: Performed By: #### L 100.0500, L500.2500 #### [facility] [address] [place], [address] Sodium [Moles/Vol] 139 mmol/L Normal 136-145 [facility] Comment on above: Order Comment: Performed By: #### L 100.0500, L500.2500 #### [facility] [address] [place], [address] T PROT 6.3 g/dL Low 6.4-8.2 [facility] Comment on above: Order Comment: Performed By: #### L 100.0500, L500.2500 #### [facility] [address] [place], [address] Urea nitrogen [Mass/Vol] 31 mg/dL High 7-18 [facility] Comment on above: Order Comment: Performed By: #### L 100.0500, L500.2500 #### [facility] [address] [place], [address] Erythrocyte distribution wid th (RBC) [Ratio]Ordered By: Dev Gutierrez on 07-02-2024 Erythrocyte distribution width (RBC) [Entitic vol] 50.4 fL High 35.1-43.9 [facility] Erythrocyte distribution wid th ratioOrdered By: Dev Gutierrez on 07-02-2024 Erythrocyte distribution width (RBC) [Ratio] 14.4 % 11.6-14.6 [facility] Erythrocyte distribution wid th standard deviationOrdered By: Dev Gutierrez on 07-02-2024 Erythrocyte distribution width (RBC) [Ratio] 50.4 fl High 35.1-43.9 [facility] Estimated glomerular filtrat ion rate (GFR) AmericanOrdered By: Dev Gutierrez on 07-02-2024 Estimated GFR (MDRD) Amer 45 mL/min Low >60 [facility] Comment on above: GFR Calc Glomerular filtration rate ( GFR) estimationOrdered By: Dev Gutierrez on 07-02-2024 Estimated GFR (MDRD) Non-Af Amer 37 mL/min Low >60 [facility] Comment on above: Non- GFR Calc GFR/1.73 sq M.predicted among non-blacks MDRD (S/P/Bld) [Vol rate/Area] 37 mL/min/{1.73_m2} Low >60 [facility] Comment on above: Non- GFR Calc Glucose measurementOrdered B y: Dev Gutierrez on 07-02-2024 Glucose [Mass/Vol] 95 mg/dL 74-106 [facility] Hematocrit Auto (Bld) [Volum e fraction]Ordered By: Dev Gutierrez on 07-02-2024 Hematocrit (Bld) [Volume fraction] 31.5 % Low 37-47 [facility] Hemoglobin measurementOrdere d By: Dev Gutierrez on 07-02-2024 Hemoglobin (Bld) [Mass/Vol] 9.9 g/dL Low 12.0-15.0 [facility] - Chemistry and C hemistry - challengeOrdered By: Dev Gutierrez on 07-02-2024 AST [Catalytic activity/Vol] 22 U/L 15-37 [facility] MCV (mean corpuscular volume ) determinationOrdered By: Dev Gutierrez on 07-02-2024 MCV (RBC) [Entitic vol] 96.0 fL 81-99 [facility] Mean corpuscular hemoglobin (MCH) determinationOrdered By: Dev Gutierrez on 07-02-2024 MCH (RBC) [Entitic mass] 30.2 pg 27.0-32.0 [facility] Mean corpuscular hemoglobin concentration (MCHC) determinationOrdered By: Dev Gutierrez on 07-02-2024 MCHC (RBC) [Mass/Vol] 31.4 g/dL Low 32-36 [facility] Mean platelet volume determi nationOrdered By: Dev Gutierrez on 07-02-2024 Platelet mean volume (Bld) [Entitic vol] 10.2 fL 6.2-12.0 [facility] Platelet countOrdered By: Morris on 07-02-2024 Platelets (Bld) [#/Vol] 143 10*3/uL Low 150-450 [facility] Potassium measurementOrdered By: Dev Gutierrez on 07-02-2024 Potassium [Moles/Vol] 3.3 mmol/L Low 3.5-5.1 [facility] RBC Auto (Bld) [#/Vol]Ordere d By: Dev Gutierrez on 07-02-2024 RBC (Bld) [#/Vol] 3.28 10*6/uL Low 4.2-5.4 [facility] Serum anion gap measurementO rdered By: Dev Gutierrez on 07-02-2024 Anion gap [Moles/Vol] 11 mmol/L 5-15 [facility] Serum globulin measurementOr dered By: Dev Gutierrez on 07-02-2024 Globulin (S) [Mass/Vol] 3.2 g/dL 2.2-4.2 [facility] Serum or plasma alanine tovar otransferase (ALT) measurementOrdered By: Dev Gutierrez on 07-02-2024 ALT [Catalytic activity/Vol] 20 U/L 13-56 [facility] Serum or plasma albumin maude urement (mass/volume)Ordered By: Dev Gutierrez on 07-02-2024 Albumin [Mass/Vol] 3.1 g/dL Low 3.2-5.0 [facility] Serum or plasma alkaline nilton sphatase measurementOrdered By: Dev Gutierrez on 07-02-2024 ALP [Catalytic activity/Vol] 68 U/L 45-117 [facility] Serum or plasma calcium maude urement (mass/volume)Ordered By: Dev Gutierrez on 07-02-2024 Calcium [Mass/Vol] 8.6 mg/dL 8.5-10.1 [facility] Serum or plasma creatinine m easurement (mass/volume)Ordered By: Dev Gutierrez on 07-02-2024 Creatinine [Mass/Vol] 1.44 mg/dL High 0.55-1.02 [facility] Comment on above: The validity of the calculated GFR & GFRAA in patients over 70 years has not been determined. Clinical correlation is essential. Serum or plasma thyroid stim ulating hormone (TSH) measurement (units/volume)Ordered By: Dev Gutierrez on 07-02-2024 TSH Qn 5.820 uIU/mL High 0.358-3.740 [facility] Serum or plasma urea nitroge n measurement (mass/volume)Ordered By: Dev Gutierrez on 07-02-2024 Urea nitrogen [Mass/Vol] 31 mg/dL High 7-18 [facility] Sodium levelOrdered By: Dev Gutierrez on 07-02-2024 Sodium [Moles/Vol] 139 mmol/L 136-145 [facility] TSH QnOrdered By: Dev washington on 07-02-2024 Thyroid Stimulating Hormone (TSH) 5.820 uIU/mL High 0.358-3.740 [facility] Thyroid Stim Hormone (TSH)on 07-02-2024 TSH 5.820 uIU/mL High 0.358-3.740 [facility] Comment on above: Order Comment: Performed By: #### L 100.0500, L500.2500 #### [facility] [address] [place], [place], [id number] Total proteinOrdered By: Danielle Gutierrez on 07-02-2024 Protein [Mass/Vol] 6.3 g/dL Low 6.4-8.2 [facility] Vitamin B12on 07-02-2024 Cobalamin (Vitamin B12) [Mass/Vol] 1871 pg/mL High 211-911 [facility] Comment on above: Order Comment: Performed By: #### L 100.0500, L500.2500 #### [facility] [address] [place], [address] Vitamin B12 measurementOrder ed By: Dev Gutierrez on 07-02-2024 Cobalamin (Vitamin B12) [Mass/Vol] 1871 pg/mL High 211-911 [facility] White blood cell (WBC) count Ordered By: Dev Gutierrez on 07-02-2024 WBC (Bld) [#/Vol] 4.8 10*3/uL 4.4-11.0 [facility] Albumin to globulin ratioOrd ered By: Dev Gutierrez on 05-21-2024 Albumin/Globulin [Mass ratio] 1.1 {ratio} Normal 0.9-2.4 [facility] Comment on above: Order Comment: Performed By: #### L 500.4050, L501.9520, L100.0500 #### [facility] [address] [place], [address] Automated blood erythrocyte countOrdered By: Dev Gutierrez on 05-21-2024 RBC (Bld) [#/Vol] 3.11 10*6/uL Low 4.2-5.4 [facility] Comment on above: Order Comment: Performed By: #### L 500.4050, L501.9520, L100.0500 #### [facility] [address] [place], [address] Automated blood hematocrit ( percentage)Ordered By: Dev Gutierrez on 05-21-2024 Hematocrit (Bld) [Volume fraction] 30.1 % Low 37-47 [facility] Comment on above: Order Comment: Performed By: #### L 500.4050, L501.9520, L100.0500 #### [facility] [address] [place], [address] Bilirubin, totalOrdered By: Dev Gutierrez on 05-21-2024 Bilirubin [Mass/Vol] 1.00 mg/dL Normal 0.20-1.00 [facility] Comment on above: For patients on eltr ombopag therapy, use of Dimension [place] TBIL is not recommended. Order Comment: Result Comment: For patients on eltrombopag therapy, use of Dimension [place] TBIL is not recommended. Performed By: #### L 500.4050, L501.9520, L100.0500 #### [facility] [address] [place], [address] Blood urea nitrogen (BUN)/cr eatinine ratioOrdered By: Dev Gutierrez on 05-21-2024 Urea nitrogen/Creatinine [Mass ratio] 27.1 mg/mg High 10-20 [facility] CBC-Complete Blood Cnt No Di ffon 05-21-2024 RDW SD 48.4 fl High 35.1-43.9 [facility] Comment on above: Order Comment: Performed By: #### L 500.4050, L501.9520, L100.0500 #### [facility] [address] [place], [address] Carbon dioxide measurementOr dered By: Dev Gutierrez on 05-21-2024 CO2 [Moles/Vol] 25.0 mmol/L Normal 21.0-32.0 [facility] Comment on above: Order Comment: Performed By: #### L 500.4050, L501.9520, L100.0500 #### [facility] [address] [place], [address] Chloride measurementOrdered By: Dev Gutierrez on 05-21-2024 Chloride [Moles/Vol] 112 mmol/L High 98-107 [facility] Comment on above: Order Comment: Performed By: #### L 500.4050, L501.9520, L100.0500 #### [facility] [address] [place], [address] Comprehensive Metabolic Prof ilon 01-06-2025 ALK P 105 U/L Normal 45-117 [facility] Comment on above: Order Comment: Performed By: #### L 500.4050, L501.9520, L100.0500 #### [facility] [address] [place], [address] BUN/CRE 27.1 RATIO High 10-20 [facility] Comment on above: Order Comment: Performed By: #### L 500.4050, L501.9520, L100.0500 #### [facility] [address] [place], [address] CA,Total 9.0 mg/dL Normal 8.5-10.1 [facility] Comment on above: Order Comment: Performed By: #### L 500.4050, L501.9520, L100.0500 #### [facility] [address] [place], [address] EST GFR - AA 63 mL/min Normal >60 [facility] Comment on above: Order Comment: Result Comment: Afri can [place] GFR Calc Performed By: #### L 500.4050, L501.9520, L100.0500 #### [facility] [address] [place], [address] GAP 6 Normal 5-15 [facility] Comment on above: Order Comment: Performed By: #### L 500.4050, L501.9520, L100.0500 #### [facility] [address] [place], [address] GFR/1.73 sq M.predicted among non-blacks MDRD (S/P/Bld) [Vol rate/Area] 52 mL/min/{1.73_m2} Low >60 [facility] Comment on above: Order Comment: Result Comment: Non- GFR Calc Performed By: #### L 500.4050, L501.9520, L100.0500 #### [facility] [address] [place], [address] T PROT 6.0 g/dL Low 6.4-8.2 [facility] Comment on above: Order Comment: Performed By: #### L 500.4050, L501.9520, L100.0500 #### [facility] [address] [place], [address] Comprehensive Metabolic Prof ilOrdered By: Dev Gutierrez on 05-21-2024 AST [Catalytic activity/Vol] 16 U/L Normal 15-37 [facility] Comment on above: Order Comment: Performed By: #### L 500.4050, L501.9520, L100.0500 #### [facility] [address] [place], [address] Erythrocyte distribution wid th (RBC) [Ratio]Ordered By: Dev Gutierrez on 05-21-2024 Erythrocyte distribution width (RBC) [Entitic vol] 48.4 fL High 35.1-43.9 [facility] Erythrocyte distribution wid th ratioOrdered By: Dev Gutierrez on 05-21-2024 Erythrocyte distribution width (RBC) [Ratio] 13.7 % Normal 11.6-14.6 [facility] Comment on above: Order Comment: Performed By: #### L 500.4050, L501.9520, L100.0500 #### [facility] [address] [place], [address] Estimated glomerular filtrat ion rate (GFR) AmericanOrdered By: Dev Gutierrez on 05-21-2024 Estimated GFR (MDRD) Amer 63 mL/min >60 [facility] Comment on above: GFR Calc Glomerular filtration rate ( GFR) estimationOrdered By: Dev Gutierrez on 05-21-2024 Estimated GFR (MDRD) Non-Af Amer 52 mL/min Low >60 [facility] Comment on above: Non- GFR Calc Glucose measurementOrdered B y: Dev Gutierrez on 05-21-2024 Glucose [Mass/Vol] 105 mg/dL Normal 74-106 [facility] Comment on above: Fasting Glucose resu lt from 100 to 125 mg/dL suggests IMPAIRED HOMEOSTASIS per A.D.A. criteria. Order Comment: Result Comment: Fast ing Glucose result from 100 to 125 mg/dL suggests IMPAIRED HOMEOSTASIS per A.D.A. criteria. Performed By: #### L 500.4050, L501.9520, L100.0500 #### [facility] [address] [place], [address] Hemoglobin measurementOrdere d By: Dev Gutierrez on 05-21-2024 Hemoglobin (Bld) [Mass/Vol] 9.7 g/dL Low 12.0-15.0 [facility] Comment on above: Order Comment: Performed By: #### L 500.4050, L501.9520, L100.0500 #### [facility] [address] [place], [address] MCV (mean corpuscular volume ) determinationOrdered By: Dev Gutierrez on 05-21-2024 MCV (RBC) [Entitic vol] 96.8 fL Normal 81-99 [facility] Comment on above: Order Comment: Performed By: #### L 500.4050, L501.9520, L100.0500 #### [facility] [address] [place], [address] Mean corpuscular hemoglobin (MCH) determinationOrdered By: Dev Gutierrez on 05-21-2024 MCH (RBC) [Entitic mass] 31.2 pg Normal 27.0-32.0 [facility] Comment on above: Order Comment: Performed By: #### L 500.4050, L501.9520, L100.0500 #### [facility] [address] [place], [address] Mean corpuscular hemoglobin concentration (MCHC) determinationOrdered By: Dev Gutierrez on 05-21-2024 MCHC (RBC) [Mass/Vol] 32.2 g/dL Normal 32-36 [facility] Comment on above: Order Comment: Performed By: #### L 500.4050, L501.9520, L100.0500 #### [facility] [address] [place], [address] Mean platelet volume determi nationOrdered By: Dev Gutierrez on 05-21-2024 Platelet mean volume (Bld) [Entitic vol] 10.2 fL Normal 6.2-12.0 [facility] Comment on above: Order Comment: Performed By: #### L 500.4050, L501.9520, L100.0500 #### [facility] [address] [place], [address] Platelet countOrdered By: Morris on 05-21-2024 Platelets (Bld) [#/Vol] 139 10*3/uL Low 150-450 [facility] Comment on above: Order Comment: Performed By: #### L 500.4050, L501.9520, L100.0500 #### [facility] [address] [place], [address] Potassium measurementOrdered By: Dev Gutierrez on 05-21-2024 Potassium [Moles/Vol] 4.0 mmol/L Normal 3.5-5.1 [facility] Comment on above: Order Comment: Performed By: #### L 500.4050, L501.9520, L100.0500 #### [facility] [address] [place], [address] Serum anion gap measurementO rdered By: Dev Gutierrez on 05-21-2024 Anion gap [Moles/Vol] 6 mmol/L 5-15 [facility] Serum globulin measurementOr dered By: Dev Gutierrez on 05-21-2024 Globulin (S) [Mass/Vol] 2.9 g/dL Normal 2.2-4.2 [facility] Comment on above: Order Comment: Performed By: #### L 500.4050, L501.9520, L100.0500 #### [facility] [address] [place], [address] Serum or plasma alanine tovar otransferase (ALT) measurementOrdered By: Dev Gutierrez on 05-21-2024 ALT [Catalytic activity/Vol] 15 U/L Normal 13-56 [facility] Comment on above: Order Comment: Performed By: #### L 500.4050, L501.9520, L100.0500 #### [facility] [address] [place], [address] Serum or plasma albumin maude urement (mass/volume)Ordered By: Dve Gutierrez on 05-21-2024 Albumin [Mass/Vol] 3.1 g/dL Low 3.2-5.0 [facility] Comment on above: Order Comment: Performed By: #### L 500.4050, L501.9520, L100.0500 #### [facility] [address] [facility] [place], [address] Serum or plasma alkaline nilton sphatase measurementOrdered By: Dev Gutierrez on 05-21-2024 ALP [Catalytic activity/Vol] 105 U/L 45-117 [facility] Serum or plasma calcium maude urement (mass/volume)Ordered By: Dev Gutierrez on 05-21-2024 Calcium [Mass/Vol] 9.0 mg/dL 8.5-10.1 [facility] Serum or plasma creatinine m easurement (mass/volume)Ordered By: Dev Gutierrez on 05-21-2024 Creatinine [Mass/Vol] 1.07 mg/dL High 0.55-1.02 [facility] Comment on above: The validity of the calculated GFR & GFRAA in patients over 70 years has not been determined. Clinical correlation is essential. Order Comment: Result Comment: The validity of the calculated GFR GFRAA in patients over 70 years has not been determined. Clinical correlation is essential. Performed By: #### L 500.4050, L501.9520, L100.0500 #### [facility] [address] [place], [address] Serum or plasma urea nitroge n measurement (mass/volume)Ordered By: Dev Gutierrez on 05-21-2024 Urea nitrogen [Mass/Vol] 29 mg/dL High 7-18 [facility] Comment on above: Order Comment: Performed By: #### L 500.4050, L501.9520, L100.0500 #### [facility] [address] [place], [address] Sodium levelOrdered By: Dev Gutierrez on 05-21-2024 Sodium [Moles/Vol] 142 mmol/L Normal 136-145 [facility] Comment on above: Order Comment: Performed By: #### L 500.4050, L501.9520, L100.0500 #### [facility] [address] [place], [address] TSH QnOrdered By: Dev washington on 05-21-2024 Thyroid Stimulating Hormone (TSH) 0.034 uIU/mL Low 0.358-3.740 [facility] Thyroid Stim Hormone (TSH)on 05-21-2024 TSH 0.034 uIU/mL Low 0.358-3.740 [facility] Comment on above: Order Comment: Performed By: #### L 500.4050, L501.9520, L100.0500 #### [facility] [address] [place], [address] Total proteinOrdered By: Danielle Gutierrez on 05-21-2024 Protein [Mass/Vol] 6.0 g/dL Low 6.4-8.2 [facility] White blood cell (WBC) count Ordered By: Dev Gutierrez on 05-21-2024 WBC (Bld) [#/Vol] 5.2 10*3/uL Normal 4.4-11.0 [facility] Comment on above: Order Comment: Performed By: #### L 500.4050, L501.9520, L100.0500 #### [facility] [address] [place], [address] Urinalysis, Completeon 05-18 EPI,SQUAMOUS 0-5 SEEN Normal 5-10 [facility] Comment on above: Order Comment: Performed By: #### L 100.0500, L500.2500 #### [facility] [address] [place], [address] WBC 10-25 SEEN Normal 0-5 [facility] Comment on above: Order Comment: Performed By: #### L 100.0500, L500.2500 #### [facility] [address] [place], [address] BACTERIA 0 SEEN Normal None Seen [facility] Comment on above: Order Comment: Performed By: #### L 100.0500, L500.2500 #### [facility] [address] [place], [address] Mucus Ql (Urine sed) 0 SEEN Normal [facility] Comment on above: Order Comment: Performed By: #### L 100.0500, L500.2500 #### [facility] [address] [place], [address] RBC 0 SEEN Normal 0-5 [facility] Comment on above: Order Comment: Performed By: #### L 100.0500, L500.2500 #### [facility] [address] [place], [address] Bilirubin Test strip Ql (U)O rdered By: Dev Gutierrez on 05-17-2024 Bilirubin Ql (U) Negative Negative [facility] Epithelial cells.squamous LM Ql (Urine sed)Ordered By: Dev Gutierrez on 05-17-2024 Epithelial cells.squamous LM.HPF (Urine sed) [#/Area] 0 /[HPF] 5-10 [facility] Glucose Ql (U)Ordered By: Morris on 05-17-2024 Urine Glucose (UA) Normal mg/dl Normal [facility] Ketones Test strip Ql (U)Ord ered By: Dev Gutierrez on 05-17-2024 Ketones Ql (U) Negative Negative [facility] Microscopic analysis of urin e for red blood cells (RBC)Ordered By: Dev Gutierrez on 05-17-2024 Urine RBC 0 SEEN /hpf 0-5 [facility] Mucus LM Ql (Urine sed)Order ed By: Dev Gutierrez on 05-17-2024 Mucus Ql (Urine sed) 0 SEEN /hpf [facility] Nitrite Test strip Ql (U)Ord ered By: Dev Gutierrez on 05-17-2024 Nitrite Ql (U) Negative Negative [facility] Protein Test strip Ql (U)Ord ered By: Dev Gutierrez on 05-17-2024 Protein Ql (U) 15 mg/dl High Negative [facility] Urine blood detectionOrdered By: Dev Gutierrez on 05-17-2024 Urine Occult Blood 10 /ul High Negative [facility] Urine clarityOrdered By: Danielle Gutierrez on 05-17-2024 Clarity (U) Sl. Cloudy Clear [facility] Urine color determinationOrd ered By: Dev Gutierrez on 05-17-2024 Color (U) Yellow Yellow [facility] Urine leukocyte esterase det ection by dipstickOrdered By: Dev Gutierrez on 05-17-2024 Leukocyte esterase Test strip Ql (U) 500 /ul High Negative [facility] Urine pHOrdered By: Dev rodriguez on 05-17-2024 pH (U) 6.0 [pH] 5.0 - 8.0 [facility] Urine sediment bacteria coun t by microscopy (number/high power field)Ordered By: Dev Gutierrez on 05-17-2024 Bacteria LM.HPF (Urine sed) [#/Area] 0 /[HPF] None Seen [facility] Urine specific gravity measu rementOrdered By: Dev Gutierrez on 05-17-2024 Specific gravity (U) [Rel density] 1.010 1.002-1.030 [facility] [facility] (U)Ordered B y: Dev Gutierrez on 05-17-2024 Urine Urobilinogen Normal mg/dl Normal [facility] White blood cell countOrdere d By: Dev Gutierrez on 05-17-2024 Urine WBC 10-25 SEEN /hpf 0-5 [facility] Abdomen Single Viewon 2023 Abdomen Single View [facility] Imaging Services [address], [place] [address] Abdomen Single View MR#: [id number] Acct: [id number] Name: LEIGHANN CROWDER Rep #: [id number] : [id number] F 84 From: Chey dixon MD 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 TECHNIQUE: XR Abdomen 1 View. [...] EST , CC: Dr. 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, [address] Hematocrit (Bld) [Volume fraction] 30.1 % Low 37-47 [facility] Comment on above: Order Comment: Performed By: #### L 100.0500 #### [facility] [address] [place], [address] Hemoglobin (Bld) [Mass/Vol] 9.8 g/dL Low 12.0-15.0 [facility] Comment on above: Order Comment: Performed By: #### L 100.0500 #### [facility] [address] [place], [address] MCH (RBC) [Entitic mass] 30.8 pg Normal 27.0-32.0 [facility] Comment on above: Order Comment: Performed By: #### L 100.0500 #### [facility] [address] [place], [address] MCHC (RBC) [Mass/Vol] 32.6 g/dL Normal 32-36 [facility] Comment on above: Order Comment: Performed By: #### L 100.0500 #### [facility] [address] [place], [address] MCV (RBC) [Entitic vol] 94.7 fL Normal 81-99 [facility] Comment on above: Order Comment: Performed By: #### L 100.0500 #### [facility] [address] [place], [address] Platelet mean volume (Bld) [Entitic vol] 9.9 fL Normal 6.2-12.0 [facility] Comment on above: Order Comment: - Performed By: #### L 100.0500 #### [facility] [address] [place], [address] Platelets (Bld) [#/Vol] 152 10*3/uL Normal 150-450 [facility] Comment on above: Order Comment: - Performed By: #### L 100.0500 #### [facility] [address] [place], [address] RBC (Bld) [#/Vol] 3.18 10*6/uL Low 4.2-5.4 [facility] Comment on above: Order Comment: - Performed By: #### L 100.0500 #### [facility] [address] [place], [address] RDW SD 47.7 fl High 35.1-43.9 [facility] Comment on above: Order Comment: - Performed By: #### L 100.0500 #### [facility] [address] [place], [address] WBC (Bld) [#/Vol] 4.7 10*3/uL Normal 4.4-11.0 [facility] Comment on above: Order Comment: Performed By: #### L 100.0500 #### [facility] [address] [place], [address] Erythrocyte distribution wid th (RBC) [Ratio]Ordered By: Dev Gutierrez on 04-23-2024 Erythrocyte distribution width (RBC) [Entitic vol] 47.7 fL High 35.1-43.9 [facility] Erythrocyte distribution wid th ratioOrdered By: Dev Gutierrez on 04-23-2024 Erythrocyte distribution width (RBC) [Ratio] 13.8 % 11.6-14.6 [facility] Hematocrit Auto (Bld) [Volum e fraction]Ordered By: Dev Gutierrez on 04-23-2024 Hematocrit (Bld) [Volume fraction] 30.1 % Low 37-47 [facility] Hemoglobin measurementOrdere d By: Dev Gutierrez on 04-23-2024 Hemoglobin (Bld) [Mass/Vol] 9.8 g/dL Low 12.0-15.0 [facility] MCV (mean corpuscular volume ) determinationOrdered By: Dev Gutierrez on 04-23-2024 MCV (RBC) [Entitic vol] 94.7 fL 81-99 [facility] Mean corpuscular hemoglobin (MCH) determinationOrdered By: Dev Gutierrez on 04-23-2024 MCH (RBC) [Entitic mass] 30.8 pg 27.0-32.0 [facility] Mean corpuscular hemoglobin concentration (MCHC) determinationOrdered By: Dev Gutierrez on 04-23-2024 MCHC (RBC) [Mass/Vol] 32.6 g/dL 32-36 [facility] Mean platelet volume determi nationOrdered By: Dev Gutierrez on 04-23-2024 Platelet mean volume (Bld) [Entitic vol] 9.9 fL 6.2-12.0 [facility] Platelet countOrdered By: Morris on 04-23-2024 Platelets (Bld) [#/Vol] 152 10*3/uL 150-450 [facility] RBC Auto (Bld) [#/Vol]Ordere d By: Dev Gutierrez on 04-23-2024 RBC (Bld) [#/Vol] 3.18 10*6/uL Low 4.2-5.4 [facility] White blood cell (WBC) count Ordered By: Dev Gutierrez on 04-23-2024 WBC (Bld) [#/Vol] 4.7 10*3/uL 4.4-11.0 [facility] Thyroid Stim Hormone (TSH)on 04-06-2024 TSH 0.024 uIU/mL Low 0.358-3.740 [facility] Comment on above: Order Comment: 209-1 Performed By: #### L 100.0500, L500.2500 #### [facility] [address] [place], [address] Basic Metabolic Profile (BMP )on 03-20-2024 BUN/CRE 27.2 RATIO High 10-20 [facility] Comment on above: Order Comment: Performed By: #### L 500.4050, L501.9520, L100.0500 #### [facility] [address] [place], [address] CA,Total 9.2 mg/dL Normal 8.5-10.1 [facility] Comment on above: Order Comment: Performed By: #### L 500.4050, L501.9520, L100.0500 #### [facility] [address] [place], [address] Chloride [Moles/Vol] 108 mmol/L High 98-107 [facility] Comment on above: Order Comment: Performed By: #### L 500.4050, L501.9520, L100.0500 #### [facility] [address] [place], [address] CO2 [Moles/Vol] 25.0 mmol/L Normal 21.0-32.0 [facility] Comment on above: Order Comment: Performed By: #### L 500.4050, L501.9520, L100.0500 #### [facility] [address] [place], [address] Creatinine [Mass/Vol] 0.99 mg/dL Normal 0.55-1.02 [facility] Comment on above: Order Comment: Result Comment: The validity of the calculated GFR GFRAA in patients over 70 years has not been determined. Clinical correlation is essential. Performed By: #### L 500.4050, L501.9520, L100.0500 #### [facility] [address] [place], [address] EST GFR - AA 69 mL/min Normal >60 [facility] Comment on above: Order Comment: Result Comment: Afri can Ken[place] GFR Calc Performed By: #### L 500.4050, L501.9520, L100.0500 #### [facility] [address] [place], [address] GAP 8 Normal 5-15 [facility] Comment on above: Order Comment: Performed By: #### L 500.4050, L501.9520, L100.0500 #### [facility] [address] [place], [address] GFR/1.73 sq M.predicted among non-blacks MDRD (S/P/Bld) [Vol rate/Area] 57 mL/min/{1.73_m2} Low >60 [facility] Comment on above: Order Comment: Result Comment: Non- GFR Calc Performed By: #### L 500.4050, L501.9520, L100.0500 #### [facility] [address] [place], [address] Glucose [Mass/Vol] 99 mg/dL Normal 74-106 [facility] Comment on above: Order Comment: Performed By: #### L 500.4050, L501.9520, L100.0500 #### [facility] [address] [place], [address] Potassium [Moles/Vol] 4.1 mmol/L Normal 3.5-5.1 [facility] Comment on above: Order Comment: Performed By: #### L 500.4050, L501.9520, L100.0500 #### [facility] [address] [place], [address] Sodium [Moles/Vol] 141 mmol/L Normal 136-145 [facility] Comment on above: Order Comment: Performed By: #### L 500.4050, L501.9520, L100.0500 #### [facility] [address] [place], [address] Urea nitrogen [Mass/Vol] 27 mg/dL High 7-18 [facility] Comment on above: Order Comment: - Performed By: #### L 500.4050, L501.9520, L100.0500 #### [facility] [address] [place], [address] Potassiumon 03-09-2024 Potassium [Moles/Vol] 4.4 mmol/L Normal 3.5-5.1 [facility] Comment on above: Order Comment: - Performed By: #### L 100.0500, L500.2500 #### [facility] [address] [place], [address] Potassiumon 03-08-2024 Potassium [Moles/Vol] 4.6 mmol/L Normal 3.5-5.1 [facility] Comment on above: Order Comment: Performed By: #### L 500.4050, L501.9520, L100.0500 #### [facility] [address] [place], [address] Potassiumon 03-07-2024 Potassium [Moles/Vol] 5.1 mmol/L Normal 3.5-5.1 [facility] Comment on above: Order Comment: - Performed By: #### L 100.0500, L500.2500 #### [facility] [address] [place], [address] Comprehensive Metabolic Prof ilon 03-06-2024 Albumin [Mass/Vol] 3.1 g/dL Low 3.2-5.0 [facility] Comment on above: Order Comment: Performed By: #### L 500.4050, L501.9520, L100.0500 #### [facility] [address] [place], [address] Albumin/Globulin [Mass ratio] 1.1 {ratio} Normal 0.9-2.4 [facility] Comment on above: Order Comment: - Performed By: #### L 500.4050, L501.9520, L100.0500 #### [facility] [address] [place], [address] ALK P 106 U/L Normal 45-117 [facility] Comment on above: Order Comment: - Performed By: #### L 500.4050, L501.9520, L100.0500 #### [facility] [address] [place], [address] ALT [Catalytic activity/Vol] 11 U/L Low 13-56 [facility] Comment on above: Order Comment: - Performed By: #### L 500.4050, L501.9520, L100.0500 #### [facility] [address] [place], [address] AST [Catalytic activity/Vol] 12 U/L Low 15-37 [facility] Comment on above: Order Comment: - Performed By: #### L 500.4050, L501.9520, L100.0500 #### [facility] [address] [place], [address] Bilirubin [Mass/Vol] 0.80 mg/dL Normal 0.20-1.00 [facility] Comment on above: Order Comment: Result Comment: For patients on eltrombopag therapy, use of Dimension [place] TBIL is not recommended. Performed By: #### L 500.4050, L501.9520, L100.0500 #### [facility] [address] [place], [address] BUN/CRE 22.4 RATIO High 10-20 [facility] Comment on above: Order Comment: - Performed By: #### L 500.4050, L501.9520, L100.0500 #### [facility] [address] [place], [address] CA,Total 9.3 mg/dL Normal 8.5-10.1 [facility] Comment on above: Order Comment: Performed By: #### L 500.4050, L501.9520, L100.0500 #### [facility] [address] [place], [address] Chloride [Moles/Vol] 109 mmol/L High 98-107 [facility] Comment on above: Order Comment: Performed By: #### L 500.4050, L501.9520, L100.0500 #### [facility] [address] [place], [address] CO2 [Moles/Vol] 26.0 mmol/L Normal 21.0-32.0 [facility] Comment on above: Order Comment: Performed By: #### L 500.4050, L501.9520, L100.0500 #### [facility] [address] [place], [address] Creatinine [Mass/Vol] 1.25 mg/dL High 0.55-1.02 [facility] Comment on above: Order Comment: Result Comment: The validity of the calculated GFR GFRAA in patients over 70 years has not been determined. Clinical correlation is essential. Performed By: #### L 500.4050, L501.9520, L100.0500 #### [facility] [address] [place], [address] EST GFR - AA 53 mL/min Low >60 [facility] Comment on above: Order Comment: Result Comment: Afri can [place] GFR Calc Performed By: #### L 500.4050, L501.9520, L100.0500 #### [facility] [address] [place], [address] GAP 5 Normal 5-15 [facility] Comment on above: Order Comment: Performed By: #### L 500.4050, L501.9520, L100.0500 #### [facility] [address] [place], [address] GFR/1.73 sq M.predicted among non-blacks MDRD (S/P/Bld) [Vol rate/Area] 44 mL/min/{1.73_m2} Low >60 [facility] Comment on above: Order Comment: Result Comment: Non- GFR Calc Performed By: #### L 500.4050, L501.9520, L100.0500 #### [facility] [address] [place], [address] Globulin (S) [Mass/Vol] 2.8 g/dL Normal 2.2-4.2 [facility] Comment on above: Order Comment: Performed By: #### L 500.4050, L501.9520, L100.0500 #### [facility] [address] [place], [address] Glucose [Mass/Vol] 89 mg/dL Normal 74-106 [facility] Comment on above: Order Comment: Performed By: #### L 500.4050, L501.9520, L100.0500 #### [facility] [address] [place], [address] Potassium [Moles/Vol] 5.5 mmol/L High 3.5-5.1 [facility] Comment on above: Order Comment: Performed By: #### L 500.4050, L501.9520, L100.0500 #### [facility] [address] [place], [address] Sodium [Moles/Vol] 139 mmol/L Normal 136-145 [facility] Comment on above: Order Comment: Performed By: #### L 500.4050, L501.9520, L100.0500 #### [facility] [address] [place], [address] T PROT 5.9 g/dL Low 6.4-8.2 [facility] Comment on above: Order Comment: - Performed By: #### L 500.4050, L501.9520, L100.0500 #### [facility] [address] [place], [address] Urea nitrogen [Mass/Vol] 28 mg/dL High 7-18 [facility] Comment on above: Order Comment: Performed By: #### L 500.4050, L501.9520, L100.0500 #### [facility] [address] [place], [address] Magnesiumon 03-06-2024 Magnesium [Mass/Vol] 1.8 mg/dL Normal 1.6-2.6 [facility] Comment on above: Order Comment: Performed By: #### L 500.4050, L501.9520, L100.0500 #### [facility] [address] [place], [address] L5000.0012on 03-03-2024 Vitamin B12 Normal [facility] Comment on above: Order Comment: Result Comment: TEST RESULTS LIMITS Vitamin B12 832 pg/mL [id number] TESTING PERFORMED AT [facility] [place]. ORIGINAL REPORT ON FILE IN LAB CONTAINS ADDITIONAL TEST SITE INFORMATION. Performed By: #### L 100.0500, L500.2500 #### [facility] [address] [place], [address] CBC-Complete Blood Cnt No Di ffon 02-27-2024 Erythrocyte distribution width (RBC) [Ratio] 13.0 % Normal 11.6-14.6 [facility] Comment on above: Order Comment: Performed By: #### L 100.0500, L500.2500 #### [facility] [address] [place], [address] Hematocrit (Bld) [Volume fraction] 27.7 % Low 37-47 [facility] Comment on above: Order Comment: Performed By: #### L 100.0500, L500.2500 #### [facility] [address] [place], [address] Hemoglobin (Bld) [Mass/Vol] 8.8 g/dL Low 12.0-15.0 [facility] Comment on above: Order Comment: Performed By: #### L 100.0500, L500.2500 #### [facility] [address] [place], [address] MCH (RBC) [Entitic mass] 30.4 pg Normal 27.0-32.0 [facility] Comment on above: Order Comment: Performed By: #### L 100.0500, L500.2500 #### [facility] [address] [place], [address] MCHC (RBC) [Mass/Vol] 31.8 g/dL Low 32-36 [facility] Comment on above: Order Comment: Performed By: #### L 100.0500, L500.2500 #### [facility] [address] [place], [address] MCV (RBC) [Entitic vol] 95.8 fL Normal 81-99 [facility] Comment on above: Order Comment: - Performed By: #### L 100.0500, L500.2500 #### [facility] [address] [place], [address] Platelet mean volume (Bld) [Entitic vol] 9.9 fL Normal 6.2-12.0 [facility] Comment on above: Order Comment: - Performed By: #### L 100.0500, L500.2500 #### [facility] [address] [place], [address] Platelets (Bld) [#/Vol] 134 10*3/uL Low 150-450 [facility] Comment on above: Order Comment: - Performed By: #### L 100.0500, L500.2500 #### [facility] [address] [place], [address] RBC (Bld) [#/Vol] 2.89 10*6/uL Low 4.2-5.4 [facility] Comment on above: Order Comment: - Performed By: #### L 100.0500, L500.2500 #### [facility] [address] [place], [address] RDW SD 46.1 fl High 35.1-43.9 [facility] Comment on above: Order Comment: - Performed By: #### L 100.0500, L500.2500 #### [facility] [address] [place], [address] WBC (Bld) [#/Vol] 4.9 10*3/uL Normal 4.4-11.0 [facility] Comment on above: Order Comment: - Performed By: #### L 100.0500, L500.2500 #### [facility] [address] [place], [address] Comprehensive Metabolic Prof ilon 02-27-2024 Albumin [Mass/Vol] 3.1 g/dL Low 3.2-5.0 [facility] Comment on above: Order Comment: Performed By: #### L 100.0500, L500.2500 #### [facility] [address] [place], [address] Albumin/Globulin [Mass ratio] 1.1 {ratio} Normal 0.9-2.4 [facility] Comment on above: Order Comment: Performed By: #### L 100.0500, L500.2500 #### [facility] [address] [place], [address] ALK P 94 U/L Normal 45-117 [facility] Comment on above: Order Comment: Performed By: #### L 100.0500, L500.2500 #### [facility] [address] [place], [address] ALT [Catalytic activity/Vol] 12 U/L Low 13-56 [facility] Comment on above: Order Comment: Performed By: #### L 100.0500, L500.2500 #### [facility] [address] [place], [address] AST [Catalytic activity/Vol] 14 U/L Low 15-37 [facility] Comment on above: Order Comment: Performed By: #### L 100.0500, L500.2500 #### [facility] [address] [place], [address] Bilirubin [Mass/Vol] 0.80 mg/dL Normal 0.20-1.00 [facility] Comment on above: Order Comment: Result Comment: For patients on eltrombopag therapy, use of Dimension [place] TBIL is not recommended. Performed By: #### L 100.0500, L500.2500 #### [facility] [address] [place], [address] BUN/CRE 24.0 RATIO High 10-20 [facility] Comment on above: Order Comment: Performed By: #### L 100.0500, L500.2500 #### [facility] [address] [place], [address] CA,Total 8.9 mg/dL Normal 8.5-10.1 [facility] Comment on above: Order Comment: Performed By: #### L 100.0500, L500.2500 #### [facility] [address] [place], [address] Chloride [Moles/Vol] 109 mmol/L High 98-107 [facility] Comment on above: Order Comment: Performed By: #### L 100.0500, L500.2500 #### [facility] [address] [place], [address] CO2 [Moles/Vol] 25.0 mmol/L Normal 21.0-32.0 [facility] Comment on above: Order Comment: Performed By: #### L 100.0500, L500.2500 #### [facility] [address] [place], [address] Creatinine [Mass/Vol] 1.29 mg/dL High 0.55-1.02 [facility] Comment on above: Order Comment: Result Comment: The validity of the calculated GFR GFRAA in patients over 70 years has not been determined. Clinical correlation is essential. Performed By: #### L 100.0500, L500.2500 #### [facility] [address] [place], [address] EST GFR - AA 51 mL/min Low >60 [facility] Comment on above: Order Comment: Result Comment: Afri can [place] GFR Calc Performed By: #### L 100.0500, L500.2500 #### [facility] [address] [place], [address] GAP 6 Normal 5-15 [facility] Comment on above: Order Comment: Performed By: #### L 100.0500, L500.2500 #### [facility] [address] [place], [address] GFR/1.73 sq M.predicted among non-blacks MDRD (S/P/Bld) [Vol rate/Area] 42 mL/min/{1.73_m2} Low >60 [facility] Comment on above: Order Comment: Result Comment: Non- GFR Calc Performed By: #### L 100.0500, L500.2500 #### [facility] [address] [place], [address] Globulin (S) [Mass/Vol] 2.7 g/dL Normal 2.2-4.2 [facility] Comment on above: Order Comment: Performed By: #### L 100.0500, L500.2500 #### [facility] [address] [place], [address] Glucose [Mass/Vol] 95 mg/dL Normal 74-106 [facility] Comment on above: Order Comment: Performed By: #### L 100.0500, L500.2500 #### [facility] [address] [place], [address] Potassium [Moles/Vol] 4.8 mmol/L Normal 3.5-5.1 [facility] Comment on above: Order Comment: Performed By: #### L 100.0500, L500.2500 #### [facility] [address] [place], [address] Sodium [Moles/Vol] 140 mmol/L Normal 136-145 [facility] Comment on above: Order Comment: Performed By: #### L 100.0500, L500.2500 #### [facility] [address] [place], [address] T PROT 5.8 g/dL Low 6.4-8.2 [facility] Comment on above: Order Comment: Performed By: #### L 100.0500, L500.2500 #### [facility] [address] [place], [address] Urea nitrogen [Mass/Vol] 31 mg/dL High 7-18 [facility] Comment on above: Order Comment: Performed By: #### L 100.0500, L500.2500 #### [facility] [address] [place], [address] Thyroid Stim Hormone (TSH)on 02-27-2024 TSH 0.011 uIU/mL Low 0.358-3.740 [facility] Comment on above: Order Comment: Performed By: #### L 100.0500, L500.2500 #### [facility] [address] [place], [address] Basic Metabolic Profile (BMP )on 01-23-2024 BUN/CRE 26.7 RATIO High 10-20 [facility] Comment on above: Order Comment: Performed By: #### L 100.0500, L500.2500 #### [facility] [address] [place], [address] CA,Total 9.2 mg/dL Normal 8.5-10.1 [facility] Comment on above: Order Comment: Performed By: #### L 100.0500, L500.2500 #### [facility] [address] [place], [address] Chloride [Moles/Vol] 106 mmol/L Normal 98-107 [facility] Comment on above: Order Comment: Performed By: #### L 100.0500, L500.2500 #### [facility] [address] [place], [address] CO2 [Moles/Vol] 27.0 mmol/L Normal 21.0-32.0 [facility] Comment on above: Order Comment: Performed By: #### L 100.0500, L500.2500 #### [facility] [address] [place], [address] Creatinine [Mass/Vol] 1.01 mg/dL Normal 0.55-1.02 [facility] Comment on above: Order Comment: Result Comment: The validity of the calculated GFR GFRAA in patients over 70 years has not been determined. Clinical correlation is essential. Performed By: #### L 100.0500, L500.2500 #### [facility] [address] [place], [address] EST GFR - AA 67 mL/min Normal >60 [facility] Comment on above: Order Comment: Result Comment: Afri can [place] GFR Calc Performed By: #### L 100.0500, L500.2500 #### [facility] [address] [place], [address] GAP 5 Normal 5-15 [facility] Comment on above: Order Comment: Performed By: #### L 100.0500, L500.2500 #### [facility] [address] [place], [address] GFR/1.73 sq M.predicted among non-blacks MDRD (S/P/Bld) [Vol rate/Area] 56 mL/min/{1.73_m2} Low >60 [facility] Comment on above: Order Comment: Result Comment: Non- GFR Calc Performed By: #### L 100.0500, L500.2500 #### [facility] Laboratory [address] [place], [address] Glucose [Mass/Vol] 94 mg/dL Normal 74-106 [facility] Comment on above: Order Comment: Performed By: #### L 100.0500, L500.2500 #### [facility] [address] [place], [address] Potassium [Moles/Vol] 4.4 mmol/L Normal 3.5-5.1 [facility] Comment on above: Order Comment: Performed By: #### L 100.0500, L500.2500 #### [facility] [address] [place], [address] Sodium [Moles/Vol] 138 mmol/L Normal 136-145 [facility] Comment on above: Order Comment: Performed By: #### L 100.0500, L500.2500 #### [facility] [address] [place], [address] Urea nitrogen [Mass/Vol] 27 mg/dL High 7-18 [facility] Comment on above: Order Comment: Performed By: #### L 100.0500, L500.2500 #### [facility] [address] [place], [address] Urine Cultureon 01-19-2024 URC Culture exhibits no growth. Normal [facility] Comment on above: Performed By: #### L 500.4050, L501.9520, L100.0500 #### [facility] [address] [place], [address] CBC-Complete Blood Cnt No Di ffon 01-18-2024 Erythrocyte distribution width (RBC) [Ratio] 13.3 % Normal 11.6-14.6 [facility] Comment on above: Order Comment: Performed By: #### L 500.4050, L501.9520, L100.0500 #### [facility] [address] [place], [address] Hematocrit (Bld) [Volume fraction] 29.8 % Low 37-47 [facility] Comment on above: Order Comment: Performed By: #### L 500.4050, L501.9520, L100.0500 #### [facility] [address] [place], [address] Hemoglobin (Bld) [Mass/Vol] 9.6 g/dL Low 12.0-15.0 [facility] Comment on above: Order Comment: Performed By: #### L 500.4050, L501.9520, L100.0500 #### [facility] [address] [place], [address] MCH (RBC) [Entitic mass] 30.9 pg Normal 27.0-32.0 [facility] Comment on above: Order Comment: Performed By: #### L 500.4050, L501.9520, L100.0500 #### [facility] [address] [place], [address] MCHC (RBC) [Mass/Vol] 32.2 g/dL Normal 32-36 [facility] Comment on above: Order Comment: Performed By: #### L 500.4050, L501.9520, L100.0500 #### [facility] [address] [place], [address] MCV (RBC) [Entitic vol] 95.8 fL Normal 81-99 [facility] Comment on above: Order Comment: Performed By: #### L 500.4050, L501.9520, L100.0500 #### [facility] [address] [place], [address] Platelet mean volume (Bld) [Entitic vol] 9.7 fL Normal 6.2-12.0 [facility] Comment on above: Order Comment: Performed By: #### L 500.4050, L501.9520, L100.0500 #### [facility] [address] [place], [address] Platelets (Bld) [#/Vol] 142 10*3/uL Low 150-450 [facility] Comment on above: Order Comment: Performed By: #### L 500.4050, L501.9520, L100.0500 #### [facility] [address] [place], [address] RBC (Bld) [#/Vol] 3.11 10*6/uL Low 4.2-5.4 [facility] Comment on above: Order Comment: Performed By: #### L 500.4050, L501.9520, L100.0500 #### [facility] [address] [place], [address] RDW SD 46.8 fl High 35.1-43.9 [facility] Comment on above: Order Comment: Performed By: #### L 500.4050, L501.9520, L100.0500 #### [facility] [address] [place], [address] WBC (Bld) [#/Vol] 4.8 10*3/uL Normal 4.4-11.0 [facility] Comment on above: Order Comment: Performed By: #### L 500.4050, L501.9520, L100.0500 #### [facility] [address] [place], [address] Ferritinon 01-18-2024 Ferritin [Mass/Vol] 62 ng/mL Normal 8-252 [facility] Comment on above: Order Comment: Performed By: #### L 500.4050, L501.9520, L100.0500 #### [facility] [address] [place], [address] Folates, (Folic Acid)on FOLATES 14.40 ng/mL Normal 3.1-55.4 [facility] Comment on above: Order Comment: Performed By: #### L 500.4050, L501.9520, L100.0500 #### [facility] [address] [place], [address] Iron+Iron Binding Capacityon 01-18-2024 Iron [Mass/Vol] 50 ug/dL Normal 50-170 [facility] Comment on above: Order Comment: - Performed By: #### L 500.4050, L501.9520, L100.0500 #### [facility] [address] [place], [address] IRON SATURATION 16.9 Normal 15.0-55.0 [facility] Comment on above: Order Comment: - Performed By: #### L 500.4050, L501.9520, L100.0500 #### [facility] [address] [place], [address] TIBC 295 ug/dL Normal 250-450 [facility] Comment on above: Order Comment: Performed By: #### L 500.4050, L501.9520, L100.0500 #### [facility] [address] [place], [address] Urinalysis, Completeon 01-17 BACTERIA 0 SEEN Normal None Seen [facility] Comment on above: Order Comment: - Performed By: #### L 500.4050, L501.9520, L100.0500 #### [facility] [address] [place], [address] EPI,SQUAMOUS 0 SEEN Normal 5-10 [facility] Comment on above: Order Comment: - Performed By: #### L 500.4050, L501.9520, L100.0500 #### [facility] [address] [place], [address] Mucus Ql (Urine sed) 0 SEEN Normal [facility] Comment on above: Order Comment: - Performed By: #### L 500.4050, L501.9520, L100.0500 #### [facility] [address] [place], [address] RBC 0 SEEN Normal 0-5 [facility] Comment on above: Order Comment: - Performed By: #### L 500.4050, L501.9520, L100.0500 #### [facility] [address] [place], [address] WBC 0 SEEN Normal 0-5 [facility] Comment on above: Order Comment: Performed By: #### L 500.4050, L501.9520, L100.0500 #### [facility] [address] [place], [address] Vitamin B12on 01-18-2024 Cobalamin (Vitamin B12) [Mass/Vol] 768 pg/mL Normal 211-911 [facility] Comment on above: Order Comment: Performed By: #### L 500.4050, L501.9520, L100.0500 #### [facility] [address] [place], [address] Basic Metabolic Profile (BMP )on 01-17-2024 BUN/CRE 24.1 RATIO High 10-20 [facility] Comment on above: Order Comment: Performed By: #### L 100.0500, L500.2500 #### [facility] [address] [place], [address] CA,Total 9.6 mg/dL Normal 8.5-10.1 [facility] Comment on above: Order Comment: Performed By: #### L 100.0500, L500.2500 #### [facility] [address] [place], [address] Chloride [Moles/Vol] 105 mmol/L Normal 98-107 [facility] Comment on above: Order Comment: - Performed By: #### L 100.0500, L500.2500 #### [facility] [address] [place], [address] CO2 [Moles/Vol] 27.0 mmol/L Normal 21.0-32.0 [facility] Comment on above: Order Comment: Performed By: #### L 100.0500, L500.2500 #### [facility] [address] [place], [address] Creatinine [Mass/Vol] 1.08 mg/dL High 0.55-1.02 [facility] Comment on above: Order Comment: Result Comment: The validity of the calculated GFR GFRAA in patients over 70 years has not been determined. Clinical correlation is essential. Performed By: #### L 100.0500, L500.2500 #### [facility] [address] [place], [address] EST GFR - AA 62 mL/min Normal >60 [facility] Comment on above: Order Comment: Result Comment: Afri can [place] GFR Calc Performed By: #### L 100.0500, L500.2500 #### [facility] [address] [place], [address] GAP 6 Normal 5-15 [facility] Comment on above: Order Comment: Performed By: #### L 100.0500, L500.2500 #### [facility] [address] [place], [address] GFR/1.73 sq M.predicted among non-blacks MDRD (S/P/Bld) [Vol rate/Area] 52 mL/min/{1.73_m2} Low >60 [facility] Comment on above: Order Comment: Result Comment: Non- GFR Calc Performed By: #### L 100.0500, L500.2500 #### [facility] [address] [place], [address] Glucose [Mass/Vol] 96 mg/dL Normal 74-106 [facility] Comment on above: Order Comment: - Performed By: #### L 100.0500, L500.2500 #### [facility] [address] [place], [address] Potassium [Moles/Vol] 4.9 mmol/L Normal 3.5-5.1 [facility] Comment on above: Order Comment: - Performed By: #### L 100.0500, L500.2500 #### [facility] [address] [place], [address] Sodium [Moles/Vol] 138 mmol/L Normal 136-145 [facility] Comment on above: Order Comment: - Performed By: #### L 100.0500, L500.2500 #### [facility] [address] [place], [address] Urea nitrogen [Mass/Vol] 26 mg/dL High 7-18 [facility] Comment on above: Order Comment: - Performed By: #### L 100.0500, L500.2500 #### [facility] [address] [place], [address] CBC-Complete Blood Cnt No Di ffon 01-17-2024 Erythrocyte distribution width (RBC) [Ratio] 13.2 % Normal 11.6-14.6 [facility] Comment on above: Order Comment: - Performed By: #### L 100.0500, L500.2500 #### [facility] [address] [place], [address] Hematocrit (Bld) [Volume fraction] 28.0 % Low 37-47 [facility] Comment on above: Order Comment: - Performed By: #### L 100.0500, L500.2500 #### [facility] [address] [place], [address] Hemoglobin (Bld) [Mass/Vol] 8.8 g/dL Low 12.0-15.0 [facility] Comment on above: Order Comment: - Performed By: #### L 100.0500, L500.2500 #### [facility] [address] [place], [address] MCH (RBC) [Entitic mass] 30.8 pg Normal 27.0-32.0 [facility] Comment on above: Order Comment: - Performed By: #### L 100.0500, L500.2500 #### [facility] [address] [place], [address] MCHC (RBC) [Mass/Vol] 31.4 g/dL Low 32-36 [facility] Comment on above: Order Comment: Performed By: #### L 100.0500, L500.2500 #### [facility] [address] [place], [address] MCV (RBC) [Entitic vol] 97.9 fL Normal 81-99 [facility] Comment on above: Order Comment: Performed By: #### L 100.0500, L500.2500 #### [facility] [address] [place], [address] Platelet mean volume (Bld) [Entitic vol] 10.1 fL Normal 6.2-12.0 [facility] Comment on above: Order Comment: - Performed By: #### L 100.0500, L500.2500 #### [facility] [address] [place], [address] Platelets (Bld) [#/Vol] 122 10*3/uL Low 150-450 [facility] Comment on above: Order Comment: - Performed By: #### L 100.0500, L500.2500 #### [facility] [address] [place], [address] RBC (Bld) [#/Vol] 2.86 10*6/uL Low 4.2-5.4 [facility] Comment on above: Order Comment: Performed By: #### L 100.0500, L500.2500 #### [facility] [address] [place], [address] RDW SD 47.1 fl High 35.1-43.9 [facility] Comment on above: Order Comment: Performed By: #### L 100.0500, L500.2500 #### [facility] [address] [place], [address] WBC (Bld) [#/Vol] 3.6 10*3/uL Low 4.4-11.0 [facility] Comment on above: Order Comment: Performed By: #### L 100.0500, L500.2500 #### [facility] [address] [place], [address] Urine Cultureon 12-21-2023 URC Below infection level. Mixed Gram Positive Organisms [place] Count 1000-10,000 MIX[facility] Mixed contaminants. Submit a new specimen if indicated. Normal [facility] Comment on above: Performed By: #### M 100.2200, L400.0001 #### [facility] [address] [place], [address] CBC-Complete Blood Cnt No Di ffon 12-20-2023 Erythrocyte distribution width (RBC) [Ratio] 13.4 % Normal 11.6-14.6 [facility] Comment on above: Order Comment: Performed By: #### L 100.0500, L500.2500 #### [facility] [address] [place], [address] Hematocrit (Bld) [Volume fraction] 31.6 % Low 37-47 [facility] Comment on above: Order Comment: Performed By: #### L 100.0500, L500.2500 #### [facility] [address] [place], [address] Hemoglobin (Bld) [Mass/Vol] 10.0 g/dL Low 12.0-15.0 [facility] Comment on above: Order Comment: Performed By: #### L 100.0500, L500.2500 #### [facility] [address] [place], [address] MCH (RBC) [Entitic mass] 30.7 pg Normal 27.0-32.0 [facility] Comment on above: Order Comment: Performed By: #### L 100.0500, L500.2500 #### [facility] [address] [place], [address] MCHC (RBC) [Mass/Vol] 31.6 g/dL Low 32-36 [facility] Comment on above: Order Comment: Performed By: #### L 100.0500, L500.2500 #### [facility] [address] [place], [address] MCV (RBC) [Entitic vol] 96.9 fL Normal 81-99 [facility] Comment on above: Order Comment: Performed By: #### L 100.0500, L500.2500 #### [facility] [address] [place], [address] Platelet mean volume (Bld) [Entitic vol] 10.0 fL Normal 6.2-12.0 [facility] Comment on above: Order Comment: Performed By: #### L 100.0500, L500.2500 #### [facility] [address] [place], [address] Platelets (Bld) [#/Vol] 142 10*3/uL Low 150-450 [facility] Comment on above: Order Comment: Performed By: #### L 100.0500, L500.2500 #### [facility] [address] [place], [address] RBC (Bld) [#/Vol] 3.26 10*6/uL Low 4.2-5.4 [facility] Comment on above: Order Comment: - Performed By: #### L 100.0500, L500.2500 #### [facility] [address] [place], [address] RDW SD 48.0 fl High 35.1-43.9 [facility] Comment on above: Order Comment: Performed By: #### L 100.0500, L500.2500 #### [facility] [address] [place], [address] WBC (Bld) [#/Vol] 5.0 10*3/uL Normal 4.4-11.0 [facility] Comment on above: Order Comment: Performed By: #### L 100.0500, L500.2500 #### [facility] [address] [place], [address] Comprehensive Metabolic Prof [facility] 12-20-2023 Albumin [Mass/Vol] 3.2 g/dL Normal 3.2-5.0 [facility] Comment on above: Order Comment: Performed By: #### L 100.0500, L500.2500 #### [facility] [address] [place], [address] Albumin/Globulin [Mass ratio] 1.0 {ratio} Normal 0.9-2.4 [facility] Comment on above: Order Comment: Performed By: #### L 100.0500, L500.2500 #### [facility] [address] [place], [address] ALK P 99 U/L Normal 45-117 [facility] Comment on above: Order Comment: Performed By: #### L 100.0500, L500.2500 #### [facility] [address] [place], [address] ALT [Catalytic activity/Vol] 13 U/L Normal 13-56 [facility] Comment on above: Order Comment: Performed By: #### L 100.0500, L500.2500 #### [facility] [address] [place], [address] AST [Catalytic activity/Vol] 17 U/L Normal 15-37 [facility] Comment on above: Order Comment: Performed By: #### L 100.0500, L500.2500 #### [facility] [address] [place], [address] Bilirubin [Mass/Vol] 1.30 mg/dL High 0.20-1.00 [facility] Comment on above: Order Comment: Result Comment: For patients on eltrombopag therapy, use of Dimension [place] TBIL is not recommended. Performed By: #### L 100.0500, L500.2500 #### [facility] [address] [place], [address] BUN/CRE 24.1 RATIO High 10-20 [facility] Comment on above: Order Comment: Performed By: #### L 100.0500, L500.2500 #### [facility] [address] [place], [address] CA,Total 9.5 mg/dL Normal 8.5-10.1 [facility] Comment on above: Order Comment: Performed By: #### L 100.0500, L500.2500 #### [facility] [address] [place], [address] Chloride [Moles/Vol] 108 mmol/L High 98-107 [facility] Comment on above: Order Comment: Performed By: #### L 100.0500, L500.2500 #### [facility] [address] [place], [address] CO2 [Moles/Vol] 30.0 mmol/L Normal 21.0-32.0 [facility] Comment on above: Order Comment: Performed By: #### L 100.0500, L500.2500 #### [facility] [address] [place], [address] Creatinine [Mass/Vol] 1.16 mg/dL High 0.55-1.02 [facility] Comment on above: Order Comment: Result Comment: The validity of the calculated GFR GFRAA in patients over 70 years has not been determined. Clinical correlation is essential. Performed By: #### L 100.0500, L500.2500 #### [facility] [address] [place], [address] EST GFR - AA 57 mL/min Low >60 [facility] Comment on above: Order Comment: Result Comment: Afri can [place] GFR Calc Performed By: #### L 100.0500, L500.2500 #### [facility] [address] [place], [address] GAP 3 Low 5-15 [facility] Comment on above: Order Comment: Performed By: #### L 100.0500, L500.2500 #### [facility] [address] [place], [address] GFR/1.73 sq M.predicted among non-blacks MDRD (S/P/Bld) [Vol rate/Area] 47 mL/min/{1.73_m2} Low >60 [facility] Comment on above: Order Comment: Result Comment: Non- GFR Calc Performed By: #### L 100.0500, L500.2500 #### [facility] [address] [place], [address] Globulin (S) [Mass/Vol] 3.2 g/dL Normal 2.2-4.2 [facility] Comment on above: Order Comment: Performed By: #### L 100.0500, L500.2500 #### [facility] [address] [place], [address] Glucose [Mass/Vol] 89 mg/dL Normal 74-106 [facility] Comment on above: Order Comment: -1 Performed By: #### L 100.0500, L500.2500 #### [facility] [address] [place], [address] Potassium [Moles/Vol] 4.8 mmol/L Normal 3.5-5.1 [facility] Comment on above: Order Comment: - Performed By: #### L 100.0500, L500.2500 #### [facility] [address] [place], [address] Sodium [Moles/Vol] 141 mmol/L Normal 136-145 [facility] Comment on above: Order Comment: - Performed By: #### L 100.0500, L500.2500 #### [facility] [address] [place], [address] T PROT 6.4 g/dL Normal 6.4-8.2 [facility] Comment on above: Order Comment: - Performed By: #### L 100.0500, L500.2500 #### [facility] [address] [place], [address] Urea nitrogen [Mass/Vol] 28 mg/dL High 7-18 [facility] Comment on above: Order Comment: -1 Performed By: #### L 100.0500, L500.2500 #### [facility] [address] [place], [address] Urinalysis, Completeon 12-19 BACTERIA RARE Normal None Seen [facility] Comment on above: Order Comment: CLEAN CATCH Performed By: #### M 100.2200, L400.0001 #### [facility] [address] [place], [address] EPI,SQUAMOUS 0-5 SEEN Normal 5-10 [facility] Comment on above: Order Comment: CLEAN CATCH Performed By: #### M 100.2200, L400.0001 #### [facility] [address] [place], [address] EPI,TRANSITION 0-5 SEEN Normal 0-5 [facility] Comment on above: Order Comment: CLEAN CATCH Performed By: #### M 100.2200, L400.0001 #### [facility] [address] [place], [address] RBC 0-5 SEEN Normal 0-5 [facility] Comment on above: Order Comment: CLEAN CATCH Performed By: #### M 100.2200, L400.0001 #### [facility] [address] [place], [address] Mucus Ql (Urine sed) 0 SEEN Normal [facility] Comment on above: Order Comment: CLEAN CATCH Performed By: #### M 100.2200, L400.0001 #### [facility] [address] [place], [address] WBC 0 SEEN Normal 0-5 [facility] Comment on above: Order Comment: CLEAN CATCH Performed By: #### M 100.2200, L400.0001 #### [facility] [address] [place], [address] CBC-Complete Blood Cnt No Di ffon 12-05-2023 Erythrocyte distribution width (RBC) [Ratio] 13.4 % Normal 11.6-14.6 [facility] Comment on above: Order Comment: Performed By: #### L 500.4050, L100.0500 #### [facility] [address] [place], [address] Hematocrit (Bld) [Volume fraction] 29.3 % Low 37-47 [facility] Comment on above: Order Comment: Performed By: #### L 500.4050, L100.0500 #### [facility] [address] [place], [address] Hemoglobin (Bld) [Mass/Vol] 9.3 g/dL Low 12.0-15.0 [facility] Comment on above: Order Comment: Performed By: #### L 500.4050, L100.0500 #### [facility] [address] [place], [address] MCH (RBC) [Entitic mass] 30.3 pg Normal 27.0-32.0 [facility] Comment on above: Order Comment: Performed By: #### L 500.4050, L100.0500 #### [facility] [address] [place], [address] MCHC (RBC) [Mass/Vol] 31.7 g/dL Low 32-36 [facility] Comment on above: Order Comment: Performed By: #### L 500.4050, L100.0500 #### [facility] [address] [place], [address] MCV (RBC) [Entitic vol] 95.4 fL Normal 81-99 [facility] Comment on above: Order Comment: Performed By: #### L 500.4050, L100.0500 #### [facility] [address] [place], [address] Platelet mean volume (Bld) [Entitic vol] 9.8 fL Normal 6.2-12.0 [facility] Comment on above: Order Comment: Performed By: #### L 500.4050, L100.0500 #### [facility] [address] [place], [address] Platelets (Bld) [#/Vol] 144 10*3/uL Low 150-450 [facility] Comment on above: Order Comment: - Performed By: #### L 500.4050, L100.0500 #### [facility] [address] [place], [address] RBC (Bld) [#/Vol] 3.07 10*6/uL Low 4.2-5.4 [facility] Comment on above: Order Comment: - Performed By: #### L 500.4050, L100.0500 #### [facility] [address] [place], [address] RDW SD 46.7 fl High 35.1-43.9 [facility] Comment on above: Order Comment: - Performed By: #### L 500.4050, L100.0500 #### [facility] [address] [place], [address] WBC (Bld) [#/Vol] 4.1 10*3/uL Low 4.4-11.0 [facility] Comment on above: Order Comment: - Performed By: #### L 500.4050, L100.0500 #### [facility] [address] [place], [address] Comprehensive Metabolic Prof [facility] 12-05-2023 Albumin [Mass/Vol] 3.1 g/dL Low 3.2-5.0 [facility] Comment on above: Order Comment: - Performed By: #### L 500.4050, L100.0500 #### [facility] [address] [place], [address] Albumin/Globulin [Mass ratio] 1.1 {ratio} Normal 0.9-2.4 [facility] Comment on above: Order Comment: - Performed By: #### L 500.4050, L100.0500 #### [facility] [address] [place], [address] ALK P 97 U/L Normal 45-117 [facility] Comment on above: Order Comment: Performed By: #### L 500.4050, L100.0500 #### [facility] [address] [place], [address] ALT [Catalytic activity/Vol] 13 U/L Normal 13-56 [facility] Comment on above: Order Comment: Performed By: #### L [id number], L100.0500 #### [facility] [address] [place], [address] AST [Catalytic activity/Vol] 3 U/L Low 15-37 [facility] Comment on above: Order Comment: Performed By: #### L [id number], L100.0500 #### [facility] [address] [place], [address] Bilirubin [Mass/Vol] 1.20 mg/dL High 0.20-1.00 [facility] Comment on above: Order Comment: Result Comment: For patients on eltrombopag therapy, use of Dimension [place] TBIL is not recommended. Performed By: #### L [id number], L100.0500 #### [facility] [address] [place], [address] BUN/CRE 32.4 RATIO High 10-20 [facility] Comment on above: Order Comment: Performed By: #### L [id number], L100.0500 #### [facility] [address] [place], [address] CA,Total 9.5 mg/dL Normal 8.5-10.1 [facility] Comment on above: Order Comment: Performed By: #### L [id number], L100.0500 #### [facility] [address] [place], [address] Chloride [Moles/Vol] 105 mmol/L Normal 98-107 [facility] Comment on above: Order Comment: Performed By: #### L [id number], L100.0500 #### [facility] [address] [place], [address] CO2 [Moles/Vol] 28.0 mmol/L Normal 21.0-32.0 [facility] Comment on above: Order Comment: Performed By: #### L [id number], L100.0500 #### [facility] [address] [place], [address] Creatinine [Mass/Vol] 1.05 mg/dL High 0.55-1.02 [facility] Comment on above: Order Comment: Result Comment: The validity of the calculated GFR GFRAA in patients over 70 years has not been determined. Clinical correlation is essential. Performed By: #### L [id number], L100.0500 #### [facility] [address] [place], [address] EST GFR - AA 64 mL/min Normal >60 [facility] Comment on above: Order Comment: Result Comment: Afri can [place] GFR Calc Performed By: #### L [id number], L100.0500 #### [facility] [address] [place], [address] GAP 6 Normal 5-15 [facility] Comment on above: Order Comment: Performed By: #### L [id number], L100.0500 #### [facility] [address] [place], [address] GFR/1.73 sq M.predicted among non-blacks MDRD (S/P/Bld) [Vol rate/Area] 53 mL/min/{1.73_m2} Low >60 [facility] Comment on above: Order Comment: Result Comment: Non- GFR Calc Performed By: #### L [id number], L100.0500 #### [facility] [address] [place], [address] Globulin (S) [Mass/Vol] 2.7 g/dL Normal 2.2-4.2 [facility] Comment on above: Order Comment: - Performed By: #### L [id number], L100.0500 #### [facility] [address] [place], [address] Glucose [Mass/Vol] 98 mg/dL Normal 74-106 [facility] Comment on above: Order Comment: - Performed By: #### L [id number], L100.0500 #### [facility] [address] [place], [address] Potassium [Moles/Vol] 4.6 mmol/L Normal 3.5-5.1 [facility] Comment on above: Order Comment: Performed By: #### L [id number], L100.0500 #### [facility] [address] [place], [address] Sodium [Moles/Vol] 139 mmol/L Normal 136-145 [facility] Comment on above: Order Comment: Performed By: #### L [id number], L100.0500 #### [facility] [address] [place], [address] T PROT 5.8 g/dL Low 6.4-8.2 [facility] Comment on above: Order Comment: Performed By: #### L [id number], L100.0500 #### [facility] [address] [place], [address] Urea nitrogen [Mass/Vol] 34 mg/dL High 7-18 [facility] Comment on above: Order Comment: - Performed By: #### L [id number], L100.0500 #### [facility] [address] [place], [address] Encounters Encounter Date Encounter Type Care Provider Facility Start: 11-05-2024 ambulatory Dev GUTIERREZ Facili ty:[facility] Start: 09-24-2024 End: 09-24-2024 ambulatory Out of Town Doctor [facility] Work Phone: Start: 09-24-2024 End: 09-24-2024 Departed Referred Dev Gutierrez MD [facility] Start: 09-24-2024 Registered Referred Dev Gutierrez MD [facility] Start: 09-24-2024 End: 09-24-2024 ambulatory Dev GUTIERREZ Facility:[facility] Start: 09-17-2024 End: 09-17-2024 ambulatory Out of Town Doctor [facility] Work Phone: Start: 09-17-2024 End: 09-17-2024 [facility]arted [facility] Start: 09-17-2024 Registered Referred Dev Gutierrez MD -[facility] Start: 09-17-2024 End: 09-17-2024 ambulatory Dev GUTIERREZ Facility:[facility] Start: 09-11-2024 End: 09-11-2024 ambulatory Out of Town Doctor [facility] Work Phone: Start: 09-11-2024 End: 09-11-2024 Departed Referred Dev Gutierrez MD -[facility] Start: 09-11-2024 Registered Referred Dev Gutierrez MD -[facility] Start: 09-11-2024 End: 09-11-2024 ambulatory Dev GUTIERREZ Facility:[facility] Start: 09-03-2024 End: 09-03-2024 ambulatory Out of Town Doctor [facility] Work Phone: Start: 09-03-2024 End: 09-03-2024 Departed [facility] Start: 09-03-2024 End: 09-03-2024 ambulatory Out of Town Doctor Facility:[facility] Start: 08-13-2024 End: 08-13-2024 ambulatory Out of Town Doctor [facility] Work Phone: Start: 08-13-2024 End: 08-13-2024 Departed Referred Jack Rutledge -[facility] Start: 08-13-2024 Registered Referred Jack Rutledge -[place] [facility] Start: 08-13-2024 End: 08-13-2024 ambulatory Jack GUTIERREZ Facility:[facility] Start: 07-30-2024 End: 07-30-2024 ambulatory Out of Town Doctor [facility] Work Phone: Start: 07-30-2024 End: 07-30-2024 Departed Referred Dev Gutierrez MD [facility] Start: 07-30-2024 Registered Referred Dev Gutierrez MD -[facility] Start: 07-30-2024 End: 07-30-2024 ambulatory Out of Town Doctor Facility:[facility] Start: 07-24-2024 End: 07-24-2024 Departed Referred Dev Gutierrez MD -[facility] Start: 07-24-2024 End: 07-24-2024 ambulatory Out of Town Doctor [facility] Work Phone: Start: 07-11-2024 End: 07-11-2024 ambulatory Out of Town Doctor [facility] Work Phone: Start: 07-11-2024 End: 07-11-2024 Departed Referred Dev Gutierrez MD -[facility] Start: 07-11-2024 Registered Referred Dev Gutierrez MD -[facility] Start: 07-11-2024 End: 07-11-2024 ambulatory Out of Town Doctor Facility:[facility] Start: 07-06-2024 ambulatory Dev GUTIERREZ Facili ty:[facility] Start: 07-06-2024 Registered [facility] Start: 07-02-2024 ambulatory Dev GUTIERREZ Facili ty:[facility] Start: 07-02-2024 [facility] Start: 05-21-2024 ambulatory Dev GUTIERREZ Facili ty:[facility] Start: 05-21-2024 Registered Referred Dev Gutierrez MD -[facility] Start: 05-17-2024 ambulatory Dev GUTIERREZ Facili ty:[facility] Start: 05-17-2024 Registered Referred Dev Gutierrez MD -[facility] Start: 05-04-2024 End: 05-04-[address] Rachele Velasquez MD -Radiology, [place] Work Phone: Start: 05-04-2024 End: 05-04-2024 ambulatory Out of Town Doctor Facility:[facility] Start: 04-23-2024 End: 04-23-2024 Departed Referred Dev Gutierrez MD -[facility] Start: 04-23-2024 End: 04-23-2024 ambulatory Out of Town Doctor Facility:[facility] Start: 04-06-2024 ambulatory Out of Town Doctor Faci lity:[facility] Start: 03-20-2024 End: 03-20-2024 ambulatory Dev GUTIERREZ Facility:[facility] Start: 03-09-2024 End: 03-09-2024 ambulatory Dev GUTIERREZ Facility:[facility] Start: 03-08-2024 End: 03-08-2024 ambulatory Out of Town Doctor Facility:[facility] Start: 03-07-2024 End: 03-07-2024 Telephone encounter Lev Li MD Work Phone: [facility] Start: 03-07-2024 End: 03-07-2024 ambulatory Out of Town Doctor Facility:[facility] Start: 03-06-2024 End: 03-06-2024 ambulatory Dev GUTIERREZ Facility:[facility] Start: 02-27-2024 End: 02-27-2024 ambulatory Dev GUTIERREZ Facility:[facility] Start: 01-23-2024 ambulatory Dev GUTIERREZ Facili ty:[facility] Start: 01-18-2024 ambulatory Dev GUTIERREZ Facili ty:[facility] Start: 01-17-2024 ambulatory Dev GUTIERREZ Facili ty:[facility] Start: 12-20-2023 End: 12-20-2023 ambulatory Dev GUTIERREZ Facility:[facility] Start: 12-05-2023 End: 12-05-2023 ambulatory Dev GUTIERREZ Facility:[facility] Procedures Date Procedure Procedure Detail Performing [...] polysaccharide vaccine, 23 valent [facility] 02-12-2015 Influenza virus vaccine [facility] Doc tor [facility] Payers Date Payer Category Payer Medicare [id number] 2023 Medicare [id number] 2023 Self-pay 2023 Unknown [id number] 2014 Private Health Insurance [employer] [facility] ME [id number] [id number] 1997 Medicare MEDICARE [id number] Medicare [employer] MEDICARE PPO [id number] Unknown [id number] 2.16.840.1.788536.3.579.2. 462 Unknown [id number] 2.16.840.1.696284.3.579.2. 462 Unknown [id number] 2.16.840.1.633918.3.579.2. 462 Unknown [id number] 2.16.840.1.638676.3.579.2. 462 Unknown [id number] 2.16.840.1.637804.3.579.2. 462 Unknown [id number] 2.16.840.1.906963.3.579.2. 462 Unknown [id number] 2.16.840.1.594641.3.579.2. 462 Unknown [id number] 2.16.840.1.080043.3.579.2. 462 Unknown [id number] 2.16.840.1.300018.3.579.2. 462 Unknown [id number] 2.16.840.1.008415.3.579.2. 462 Unknown [id number] 2.16.840.1.380238.3.579.2. 462 Unknown [id number] 2.16.840.1.218200.3.579.2. 462 Unknown [id number] 2.16.840.1.291320.3.579.2. 462 Unknown [id number] 2.16.840.1.909376.3.579.2. 462 Unknown [id number] 2.16.840.1.292289.3.579.2. 462 Unknown [id number] 2.16.840.1.203084.3.579.2. 462 Unknown [id number] 2.16.840.1.897345.3.579.2. 462 Unknown [id number] 2.16.840.1.665977.3.579.2. 462 Unknown [id number] 2.16.840.1.921675.3.579.2. 462 Unknown [id number] 2.16.840.1.671838.3.579.2. 462 Unknown [id number] 2.16.840.1.977549.3.579.2. 462 Unknown [id number] 2.16.840.1.612222.3.579.2. 462 Unknown [id number] 2.16.840.1.414125.3.579.2. 462 Unknown [id number] 2.16.840.1.296032.3.579.2. 462 Unknown [id number] 2.16.840.1.580663.3.579.2. 462 Unknown [id number] 2.16.840.1.458885.3.579.2. 462 Unknown [id number] 2.16840.1.710845.3.579.2. 462 Unknown [id number] 2.16.840.1.775200.3.579.2. 462 Social History Date Type Detail [facility] Start: 1940 Sex assigned at Not on file [facility] Gender identity Not [facility] file [facility] Start: 04-22-2015 Tobacco smoking stat [facility] Never smoked tobacco (finding) [facility] Start: 04-06-2015 None None [facility] Start: 04-06-2015 Spouse/ Significant Other Spouse/ Significant Other [facility] Start: 08-16-2024 End: 08-30-2024 Sex Female (finding) [facility] Start: 1940 Sex Assigned At Female [facility] Telephone encounter Note 10-23-2024 Telephone Encounter - Анна Batista - 03/07/2024 2:04 PM EDT Note Date & Type Note Facility 03-07-2024 Telephone encount er Note Recd referral from [facility] to schedule a new pt appt, when I called the facility today-03/07/24- I was informed by the survey instrument operator that they had already made her an appt closer to their facility and to disregard this referral [facility] Note 03-07-2024 Telephone Encounter - Анна Batista - 03/07/2024 2:04 PM EDT Note Date & Type Note Facility 03-07-2024 Miscellaneous Notes Formattin g of this note might be different from the original. Recd referral from [facility] to schedule a new pt appt, when I called the facility today-03/07/24- I was informed by the survey instrument operator that they had already made her an appt closer to their facility and to disregard this referral documented in this encounter [facility] Evaluation note Note Date & Type Note Facility Evaluation note No assessment information availa ble [facility] Work Phone: Reason for referral (narrative) Note Date & Type Note Facility Reason for referral (narrative) No reason for referral information available [facility] Work Phone: Chief Complaint and Reason for Visit Chief Complaint Admit Date LABWORK April 23, 2024 5 :00am [facility] May 04, 2024 3:07pm [facility] May 17, 2024 9:42pm LABWORK May 21, 2024 5: 00am LABWORK July 02, 2024 5:00am LABWORK July 06, 2024 5:00am LABWORK July 11, 2024 5:00am [facility] July 11 1:00pm [facility] July 24, 2024 1 :00am Chief Complaint Admit Date LABWORK April 23, 2024 5 :00am [facility] May 04, 2024 3:07pm [facility] May 17, 2024 9:42pm LABWORK May 21, 2024 5: 00am LABWORK July 02, 2024 5:00am LABWORK July 06, 2024 5:00am LABWORK July 11, 2024 5:00am [facility] July 11 1:00pm [facility] July 24, 2024 1 :00am [facility] July 30, 2024 5 :00am Chief Complaint Admit Date [facility] May 04, 2024 3:07pm [facility] May 17, 2024 9:42pm LABWORK May 21, 2024 5: 00am LABWORK July 02, 2024 5:00am LABWORK July 06, 2024 5:00am LABWORK July 11, 2024 5:00am [facility] July 11 1:00pm [facility] July 24, 2024 1 :00am [facility] July 30, 2024 5 :00am LABWORK August 13, 2024 5:0 0am Chief Complaint Admit Date LABWORK July 02, 2024 5:00am LABWORK July 06, 2024 5:00am LABWORK July 11, 2024 5:00am [facility] July 11 1:00pm [facility] July 24, 2024 1 :00am [facility] July 30, 2024 5 :00am LABWORK August 13, 2024 5:0 0am [facility] September 03, 2024 5 :00am Chief Complaint Admit Date LABWORK July 02, 2024 5:00am LABWORK July 06, 2024 5:00am LABWORK July 11, 2024 5:00am [facility] July 11 1:00pm [facility] July 24, 2024 1 :00am [facility] July 30, 2024 5 :00am LABWORK August 13, 2024 5:0 0am [facility] WORK September 03, 2024 5 :00am LABWORK September 24, 2024 5:00a m Chief Complaint Admit Date LABWORK July 02, 2024 5:00am LABWORK July 06, 2024 5:00am LABWORK July 11, 2024 5:00am [facility] WORK July 11 1:00pm [facility] July 24, 2024 1 :00am [facility] WORK July 30, 2024 5 :00am LABWORK August 13, 2024 5:0 0am [facility] September 03, 2024 5 :00am [facility] September 11, 2024 4 :00am [facility] WORK September 17, 2024 5:00 am [...] Care Teams (unrecognized sec tion and content) [facility] Specialty Start Date End Date Dev Gutierrez Sr., MD [address] [place] [address] [phone] PCP - General Internal Medicine 03/06/24 Team Status: Active Member Role Status Dates [facility] Family Provider Active [facility] Doctor Primary Care Provider Active Team Status: Inactive Member Role Status Dates Out of [facility] Doctor Primary Care Provider Active Start: April 23, 2024 End: April 23, 2024 Dev GUTIERREZ MD Attending Provider Active S tart: April 23, 2024 End: April 23, 2024 Team Status: Inactive Member Role Status Dates Out of [facility] Doctor Primary Care Provider Active Start: May 04, 2024 End: May 04, 2024 Dr. Rachele Velasquez MD Attending Provider Active Start: May 04, 2024 End: May 04, 2024 Dr. Rachele Velasquez MD Referring Provider Active Start: May 04, 2024 End: May 04, 2024 Team Status: Active Member Role Status Dates Out of [facility] Doctor Primary Care Provider Active Start: May 17, 2024 Dev GUTIERREZ MD Attending Provider Active S tart: May 17, 2024 Dev GUTIERREZ MD Referring Provider Active S tart: May 17, 2024 Team Status: Active Member Role Status Dates Out of [facility] Doctor Primary Care Provider Active Start: May 21, 2024 Dev GUTIERREZ MD Attending Provider Active S tart: May 21, 2024 Team Status: Active Member Role Status Dates Out of [facility] Doctor Primary Care Provider Active Start: July 02, 2024 Dev GUTIERREZ MD Attending Provider Active S tart: July 02, 2024 Team Status: Active Member Role Status Dates Out of [facility] Doctor Primary Care Provider Active Start: July 06, 2024 Dev GUTIERREZ MD Attending Provider Active S tart: July 06, 2024 Team Status: Active Member Role Status Dates Out of [facility] Primary Care Provider Active Start: July 11, 2024 Dev GUTIERREZ MD Attending Provider Active S tart: July 11, 2024 Team Status: Inactive Member Role Status Dates Out of [facility] Primary Care Provider Active Start: July 24, 2024 End: July 24, 2024 Dev GUTIERREZ MD Attending Provider Active S tart: July 24, 2024 End: July 24, 2024 Team Status: Active Member Role Status Dates Out of [facility] Primary Care Provider Active Start: July 30, 2024 Dev GUTIERREZ MD Attending Provider Active S tart: July 30, 2024 Team Status: Active Member Role Status Dates Out of [facility] Primary Care Provider Active Start: August 13, 2024 Jack GUTIERREZ Attending Provider Active Star t: August 13, 2024 Team Status: Inactive Member Role Status Dates Out of [facility] Primary Care Provider Active Start: July 11, 2024 End: July 11, 2024 Dev GUTIERREZ MD Attending Provider Active S tart: July 11, 2024 End: July 11, 2024 Team Status: Inactive Member Role Status Dates Out of [facility] Primary Care Provider Active Start: July 30, 2024 End: July 30, 2024 Dev GUTIERREZ MD Attending Provider Active S tart: July 30, 2024 End: July 30, 2024 Team Status: Inactive Member Role Status Dates Out of [facility] Doctor Primary Care Provider Active Start: August 13, 2024 End: August 13, 2024 Jack GUTIERREZ Attending Provider Active Star t: August 13, 2024 End: August 13, 2024 Team Status: Inactive Member Role Status Dates Out of [facility] Doctor Primary Care Provider Active Start: September 03, 2024 End: September 03, 2024 Dev GUTIERREZ MD Attending Provider Active S tart: September 03, 2024 End: September 03, 2024 Team Status: Active Member Role Status Dates Out of [facility] Doctor Primary Care Provider Active Start: September 11, 2024 Dev GUTIERREZ MD Attending Provider Active S tart: September 11, 2024 Team Status: Active Member Role Status Dates Out of [facility] Doctor Primary Care Provider Active Start: September 17, 2024 Dev GUTIERREZ MD Attending Provider Active S tart: September 17, 2024 Team Status: Active Member Role Status Dates Out of [facility] Doctor Primary Care Provider Active Start: September 24, 2024 Dev GUTIERREZ MD Attending Provider Active S tart: September 24, 2024 Team Status: Inactive Member Role Status Dates Out of [facility] Doctor Primary Care Provider Active Start: September 24, 2024 End: September 24, 2024 Dev GUTIERREZ MD Attending Provider Active S tart: September 24, 2024 End: September 24, 2024 Team Status: Inactive Member Role Status Dates Out of [facility] Doctor Primary Care Provider Active Start: September 11, 2024 End: September 11, 2024 Dev GUTIERREZ MD Attending Provider Active S tart: September 11, 2024 End: September 11, 2024 Dev GUTIERREZ MD Referring Provider Active S tart: September 11, 2024 End: September 11, 2024 Team Status: Inactive Member Role Status Dates [facility] Doctor Primary Care Provider Active Start: [...] section and content) DATE CREATED AUTHOR 11/06/2024 [facility] FOR RECORDS PERTAINING TO PATIENTS WHO [...] BE BASED ON THE PRIMARY CLINICAL RECORDS. [facility] [employer] [facility]. provides no warranty or guarantee of the accuracy or completeness of information in this document.
[2024-11-27 08:24] LABS: Hematocrit 30.7 % (37-47); Hemoglobin 10.4 g/dL (12.0-15.0); Mean Corp Hgb Conc 33.9 g/dL (32-36); Mean Corpuscular Volume 94.5 fL (81-99); Mean Platelet Vol. 10.1 fl (6.2-12.0); Platelet Count 152 K/mm3 (150-450); RBC Distribution Width CV 13.0 % (11.6-14.6); RBC Distribution Width SD 44.8 fl (35.1-43.9); Red Blood Count 3.25 M/mm3 (4.2-5.4); White Blood Count 5.2 K/mm3 (4.4-11.0)
[2024-11-27 08:40] LABS: Anion Gap 10 (5-15); BUN 17 mg/dL (4-19); BUN/Creat Ratio 18.1 RATIO (10-20); Calcium,Total 9.4 mg/dL (7.6-11.0); Carbon Dioxide 24.9 mmol/L (21.0-32.0); Chloride 106 mmol/L (98-108); Glucose 105 mg/dL (70-99); Potassium 3.7 mmol/L (3.3-5.1)
== END ==
LOC: OLS.ACH 05:00
PROVIDERS: Visit Provider Internal Medicine
DX: N18.30 Chronic kidney disease, stage 3 unspecified (principal)
CPT/HCPCS: 36415; 80048; 85027

== ENCOUNTER → 2025-01-06 | Outpatient (REF) | payer MEDICARE, MEDICAID, SELFPAY ==
[2025-01-07 07:31] LABS: Mucous, Urine 0 SEEN /hpf (<or=2+)
[2025-01-07 08:23] LABS: Color, Urine Yellow (Yellow); Glucose, Dipstick Normal (Normal); Ketone-Dipstick Negative (Negative); Leukocyte Esterase-Dipstick 500 /ul (Negative); Nitrite-Dipstick Positive (Negative); Occult Blood-Urine 25 /ul (Negative); Protein-Dipstick 30 mg/dl (Negative); Specific Gravity, Urine 1.015 (1.002-1.030); Urine Bilirubin Dipstick Negative (Negative)
[2025-01-07 08:35] LABS: Red Blood Cells-Urine 0-5 SEEN /hpf (0-5); Squamous Epithelial Cells - UA 10-25 SEEN /hpf (5-10)
[2025-01-07 08:36] LABS: Transitional Epithelial - Ur 5-10 SEEN /hpf (0-5)
== END ==
LOC: OLS.ACH 21:30
PROVIDERS: Referring Provider Internal Medicine; Visit Provider Internal Medicine
DX: R39.9 Unspecified symptoms and signs involving the genitourinary system (principal); Z87.440 Personal history of urinary (tract) infections
CPT/HCPCS: 81001; 87086; 87088; 87186

== ENCOUNTER → 2025-01-28 04:00 | Outpatient (REF) | payer MEDICARE, MEDICAID, SELFPAY ==
[2025-01-28 08:07] LABS: Hematocrit 31.2 % (37-47); Hemoglobin 10.3 g/dL (12.0-15.0); Mean Corp Hgb Conc 33.0 g/dL (32-36); Mean Corpuscular Volume 93.4 fL (81-99); Mean Platelet Vol. 9.7 fl (6.2-12.0); Platelet Count 134 K/mm3 (150-450); RBC Distribution Width CV 13.8 % (11.6-14.6); RBC Distribution Width SD 46.2 fl (35.1-43.9); Red Blood Count 3.34 M/mm3 (4.2-5.4); White Blood Count 5.1 K/mm3 (4.4-11.0)
[2025-01-28 08:36] LABS: AST(SGOT) 19 U/L (<=31); Alanine Aminotransfer ALT/SGPT 13 U/L (<=34); Albumin, Serum 3.9 g/dL (3.4-4.8); Alkaline Phosphatase 69 U/L (35-104); Anion Gap 12 (5-15); BUN 31 mg/dL (4-19); BUN/Creat Ratio 29.2 RATIO (10-20); Calcium,Total 9.2 mg/dL (7.6-11.0); Carbon Dioxide 21.1 mmol/L (21.0-32.0); Chloride 110 mmol/L (98-108); Globulin 2.4 g/dL (2.2-4.2); Glucose 98 mg/dL (70-99); Potassium 3.6 mmol/L (3.3-5.1); Vitamin B12 690 pg/mL (180-914)
== END ==
LOC: OLS.ACH 04:00
PROVIDERS: Referring Provider Internal Medicine; Visit Provider Internal Medicine
DX: E03.9 Hypothyroidism, unspecified (principal); D63.8 Anemia in other chronic diseases classified elsewhere; G60.3 Idiopathic progressive neuropathy
CPT/HCPCS: 36415; 80053; 82607; 84443; 85027

== ENCOUNTER → 2025-02-10 | Outpatient (REF) | payer MEDICARE, MEDICAID, SELFPAY ==
[2025-02-11 08:00] LABS: Mucous, Urine 0 SEEN /hpf (<or=2+); Red Blood Cells-Urine 0 SEEN /hpf (0-5); Squamous Epithelial Cells - UA 0 SEEN /hpf (5-10)
[2025-02-11 08:28] LABS: Color, Urine Yellow (Yellow); Glucose, Dipstick Normal (Normal); Ketone-Dipstick Negative (Negative); Leukocyte Esterase-Dipstick 500 /ul (Negative); Nitrite-Dipstick Positive (Negative); Occult Blood-Urine Negative /ul (Negative); Protein-Dipstick 30 mg/dl (Negative); Specific Gravity, Urine 1.010 (1.002-1.030); Urine Bilirubin Dipstick Negative (Negative)
== END ==
LOC: OLS.ACH 19:00
PROVIDERS: Visit Provider Internal Medicine
DX: R39.9 Unspecified symptoms and signs involving the genitourinary system (principal); Z87.440 Personal history of urinary (tract) infections
CPT/HCPCS: 81001; 87077; 87086; 87088; 87186

== ENCOUNTER → 2025-04-22 05:00 | Outpatient (REF) | payer MEDICARE, MEDICAID, SELFPAY ==
--- OUTSIDE RECORDS SUMMARY | 2025-04-22 03:35 | XMS RPT_ITS | CCD ---
Author Organization [facility] Care Team Providers Care Personal Counselor Name Role Phone Brenda Hardy MD, Dev Primary Care Provider Town Doctor, Out of Primary Care Provider Johnny Gutierrez MD, Dev Attending Provider Valeria Velasquez MD, Dr. Jeffrey Attending Provider [phone] Dr. Rachele Velasquez MD Referring Provider [phone] Brenda BALDWIN, Dev Referring Provider Unavailable Jack Fletcher Attending Provider Unavailabl e Town Doctor, Out of Primary Care Provider Johnny Gutierrez MD, Dev Attending Provider Unavailable Town Doctor, Out of Primary Care Provider Johnny Gutierrez MD, Dev Attending Provider Unavailable Brenda BALDWIN, Dev Referring Provider Unavailable Town Doctor, Out of Primary Care Physician Artemio Velasquez MD, Dr. Jeffrey Attending Physician Brenda BALDWIN, Dev Attending Physician Unavailable Brenda BALDWIN, Dev Referring Provider Unavailable Town Doctor, Out of Referring Provider Unavailab Dev Cabrera Attending Unavailable Town Doctor, Out of Primary Care Unavailable Town Doctor, Out of Primary Care Unavailable Jack Fletcher Attending Unavailable Town Doctor, Out of Primary Care Unavailable Dev Rose Attending Unavailable Dev Rose Referring Unavailable Town Doctor, Out of Primary Care Unavailable Dev Rose Attending Unavailable [facility] Attending Melbavai lable Town Doctor, Out of Primary Care Unavailable Town Doctor, Out of Primary Care Unavailable Dev Rose Attending Unavailable Dev Rose Referring Unavailable Town Doctor, Out of Primary Care Unavailable Dev Rose Attending Unavailable Town Doctor, Out of Primary Care Unavailable Deperro OLS, Dev Attending Unavailable Deperro OLS, Dev Attending Unavailable Town Doctor, Out of Primary Care Unavailable Deperro OLS, Dev Attending Unavailable Town Doctor, Out of Primary Care Unavailable Town Doctor, Out of Primary Care Unavailable Rachele Velasquez Referring Unavailable Rachele Velasquez Attending Unavailable Deperro OLS, Dev Attending Unavailable [...] Primary Care Unavailable Town Doctor, Out of Referring Unavailable Town Doctor, Out of Primary Care Unavailable Rachele Velasquez Attending Unavailable Town Doctor, [...] Allergy Type Date of Onset Reaction(s) Facility (11 sources) Cephalexin Drug Allergy 05-17-2015 Rash [facility] (1 source) Cephalexin Drug Allergy 02-26-2025 [facility] Repository Medications Current Medications Medication Drug Class(es) Dates Sig (Normalized) Sig (Original) acetaminophen 325 mg oral tablet (2 sources) Start: 02-26-2025 take 1 tablet by mouth once as needed Acetaminophen (Tylenol) 325 mg tablet Active 325 mg PO ONCE as needed February 26, 2025 12:00am Complies with drug therapy Start: 02-26-2025 take 1 tablet by renetta th once as needed Acetaminophen (Tylenol) 325 mg tablet Active 325 mg PO ONCE as needed February 26, 2025 12:00am Complies with drug therapy allopurinol 300 mg oral tablet (20 sources) Xanthine Oxidase Inhibitor Start: 04-22-2015 End: 05-21-2015 take 1 tablet by mouth once daily Allopurinol 300 MG tablet Active 300 mg PO DAILY 30 0 May 21, 2015 7:26pm Complies with drug therapy Start: 04-06-2015 End: 04-09-2015 take 1 tablet by mouth once daily Allopurinol 300 MG tablet Discontinued 300 mg PO DAILY April 06, 2015 1:00am April 09, 2015 6:27pm aluminum hydroxide 40 mg/ml / magnesium hydroxide 40 mg/ml / simethicone 4 mg/ml oral suspension (2 sources) Start: 02-26-2025 take 1 mL by mouth once at bedtime Alum-Mag Hydroxide-Simeth (Trina-Lanta) 200-200-20 mg/5 mL suspension Active 5 mL PO ONCE February 26, 2025 12:00am administer between meals and at bedtime Complies with drug therapy Start: 02-26-2025 take 1 mL by mouth o nce at bedtime Alum-Mag Hydroxide-Simeth (Trina-Lanta) 200-200-20 mg/5 mL suspension Active 5 mL PO ONCE February 26, 2025 12:00am administer between meals and at bedtime Complies with drug therapy ascorbic acid 226 mg / beta carotene 17638 unt / cuprous oxide 0.8 mg / dl-alpha tocopheryl acetate 200 unt / zinc oxide 34.8 mg oral capsule (2 sources) Vitamin C Start: 02-26-2025 Vitamins A,C,E -Zinc-Copper (Preservision Areds) 4,296 mcg-226 mg-90 mg capsule Active 1 NMA PO TWICE A DAY February 26, 2025 12:00am Complies with drug therapy Start: 02-26-2025 Vitamins A,C,E -Zinc-Copper (Preservision Areds) 4,296 mcg-226 mg-90 mg capsule Active 1 NMA PO TWICE A DAY February 26, 2025 12:00am Complies with drug therapy calcium carbonate 1250 mg or al tablet (11 sources) Start: 05-20-2015 Calcium Carbon ate (Oyster Shell Calcium 500) 500 MG tablet Active 500 mg PO DAILY@0800 30 0 May 20, 2015 1:00am Complies with drug therapy carboxymethylcellulose sodiu m 5 mg/ml ophthalmic solution (2 sources) Start: 02-26-2025 Carboxymethylc ellulose Sodium (Refresh Plus) 0.5 % dropperette Active 1 NMA OPHTHALMIC TWICE A DAY February 26, 2025 12:00am Complies with drug therapy Start: 02-26-2025 Carboxymethylc ellulose Sodium (Refresh Plus) 0.5 % dropperette Active 1 NMA OPHTHALMIC TWICE A DAY February 26, 2025 12:00am Complies with drug therapy cholecalciferol 0.05 mg oral capsule (2 sources) Vitamin D Start: 02-26-2025 take 1 capsule by mouth once daily Cholecalciferol (Vitamin D3) (Vitamin D3) 50 mcg (2,000 unit) capsule Active 50 ug PO daily February 26, 2025 12:00am Complies with drug therapy Start: 02-26-2025 take 1 capsule by [facility] once daily Cholecalciferol (Vitamin D3) (Vitamin D3) 50 mcg (2,000 unit) capsule Active 50 ug PO daily February 26, 2025 12:00am Complies with drug therapy Sulv-Ikec-Qzlricq-Fos-Bromel n (Uti-Stat) 3,875 mg/30 mL liquid (2 sources) Start: 02-26-2025 Ypnp-Nnbp-Sgditqs-Fos-Bromel n (Uti-Stat) 3,875 mg/30 mL liquid Active mL PO February 26, 2025 12:00am Complies with drug therapy dexlansoprazole 30 mg delaye d release oral capsule (2 sources) Proton Pump Inhibit or Start: 02-26-2025 take 1 capsule by mouth once daily Dexlansoprazole 30 mg capsule,biphase delayed releas Active 30 mg PO daily February 26, 2025 12:00am Complies with drug therapy Start: 02-26-2025 take 1 capsule by [facility] once daily Dexlansoprazole 30 mg capsule,biphase delayed releas Active 30 mg PO daily February 26, 2025 12:00am Complies with drug therapy DULoxetine 30 mg delayed release oral capsule (2 sources) Serotonin and Norepinephrine Reuptake Inhibitor Start: 02-26-2025 take 1 capsule by mouth once daily Duloxetine 30 mg capsule,delayed release(DR/EC) Active 30 mg PO daily February 26, 2025 12:00am Complies with drug therapy Start: 02-26-2025 take 1 capsule by [facility] once daily Duloxetine 30 mg capsule,delayed release(DR/EC) Active 30 mg PO daily February 26, 2025 12:00am Complies with drug therapy estradiol 0.1 mg/ml vaginal cream (2 sources) Estrogen Start: 02-26-2025 Estradiol 0.01 % (0.1 mg/gram) cream Active VAGINAL February 26, 2025 12:00am Complies with drug therapy Start: 02-26-2025 Estradiol 0.01 % (0.1 mg/gram) cream Active VAGINAL February 26, 2025 12:00am Complies with drug therapy famotidine 20 mg oral tablet (2 sources) Histamine-2 Receptor Antagonist Start: 02-26-2025 take 1 tablet by mouth once daily Famotidine (Pepcid) 20 mg tablet Active 20 mg PO daily February 26, 2025 12:00am Complies with drug therapy Start: 02-26-2025 take 1 tablet by renetta th once daily Famotidine (Pepcid) 20 mg tablet Active 20 mg PO daily February 26, 2025 12:00am Complies with drug therapy gabapentin 800 mg oral tablet (20 sources) Anti-epileptic Agent Start: 02-26-2025 Gabapenti n 800 mg tablet Active mg PO February 26, 2025 12:00am Complies with drug therapy Start: 02-26-2025 Gabapentin 800 mg tablet Active mg PO February 26, 2025 12:00am Complies with drug therapy Start: 04-07-2015 End: 04-09-2015 Gabapentin Enacarbil (Horiza nt) 600 MG Tab.Er.24h Discontinued 600 mg PO April 07, 2015 1:00am April 09, 2015 6:28pm Start: 04-06-2015 End: 05-21-2015 take 1 tablet by mouth twice daily at mealtime Gabapentin 600 MG tablet Active 600 mg PO TWICE DAILY WITH MEALS 60 0 May 21, 2015 7:26pm Complies with drug therapy guaiFENesin 20 mg/ml oral solution (2 sources) Start: 02-26-2025 take 200 mg by mouth every four hours as needed Guaifenesin (Trina-Tussin) 100 mg/5 mL liquid Active 200 mg PO Q4H as needed February 26, 2025 12:00am Complies with drug therapy Start: 02-26-2025 take 200 mg by mouth every four hours as needed Guaifenesin (Trina-Tussin) 100 mg/5 mL liquid Active 200 mg PO Q4H as needed February 26, 2025 12:00am Complies with drug therapy hydrocortisone 10 mg/ml topical cream (2 sources) Corticosteroid Start: 02-26-2025 Hydrocortisone (Anti-Itch (Hc)) 1 % cream Active 1 NMA TOPICAL TWICE A DAY as needed February 26, 2025 12:00am Complies with drug therapy Start: 02-26-2025 Hydrocortisone (Anti-Itch (Hc)) 1 % cream Active 1 NMA TOPICAL TWICE A DAY as needed February 26, 2025 12:00am Complies with drug therapy levothyroxine sodium 0.175 mg oral tablet (20 sources) l-Thyroxine Start: 04-22-2015 End: 05-21-2015 take 1 tablet by mouth once daily Levothyroxine (Levoxyl) 175 MCG tablet Active 175 ug PO DAILY 30 0 May 21, 2015 7:26pm Complies with drug therapy lidocaine 0.04 mg/mg medicated patch (2 sources) Antiarrhythmic, Amide Local Anesthetic Start: 02-26-2025 Lidocaine (Asperflex (Lidocaine)) 4 % adhesive patch,medicated Active 1 NMA TOPICAL daily as needed February 26, 2025 12:00am Complies with drug therapy Start: 02-26-2025 Lidocaine (Asp erflex (Lidocaine)) 4 % adhesive patch,medicated Active 1 NMA TOPICAL daily as needed February 26, 2025 12:00am Complies with drug therapy magnesium hydroxide 80 mg/ml oral suspension (2 sources) Start: 02-26-2025 take 1 mL by mouth once Magnesium Hydroxide (Milk Of Magnesia) 400 mg/5 mL suspension Active 5 mL PO ONCE February 26, 2025 12:00am Complies with drug therapy Start: 02-26-2025 take 1 mL by mouth once Magnes ium Hydroxide (Milk Of Magnesia) 400 mg/5 mL suspension Active 5 mL PO ONCE February 26, 2025 12:00am Complies with drug therapy ondansetron 4 mg disintegrating oral tablet (20 sources) Serotonin-3 Receptor Antagonist Start: 04-22-2015 take 1 tablet by mouth every eight hours as needed for nausea Ondansetron 4 MG tablet Active 4 mg PO EVERY 8 HOURS NEEDED as needed for Nausea April 22, 2015 1:00am Complies with drug therapy Start: 04-13-2015 End: 04-13-2015 take 1 tablet by mouth every eight hours as needed for nausea Ondansetron 4 MG tablet Discontinued 4 mg PO EVERY 8 HOURS NEEDED as needed for NAUSEA 0 0 April 13, 2015 1:00am April 13, 2015 9:21am rOPINIRole 0.5 mg oral tablet (2 sources) Nonergot Dopamine Agonist Start: 02-26-2025 take 1 tablet by mouth once daily Ropinirole 0.5 mg tablet Active 0.5 mg PO daily February 26, 2025 12:00am Complies with drug therapy Start: 02-26-2025 take 1 tablet by renetta once daily Ropinirole 0.5 mg tablet Active 0.5 mg PO daily February 26, 2025 12:00am Complies with drug therapy sennosides, group home 8.6 mg oral capsule (2 sources) Start: 02-26-2025 take 1 capsule by mouth once daily Sennosides (Senna) 8.6 mg capsule Active 8.6 mg PO daily February 26, 2025 12:00am Complies with drug therapy Start: 02-26-2025 take 1 capsule by mo [facility] once daily Sennosides (Senna) 8.6 mg capsule Active 8.6 mg PO daily February 26, 2025 12:00am Complies with drug therapy simethicone 125 mg oral capsule (2 sources) Start: 02-26-2025 Simethicone (G as Relief (Simethicone)) 125 mg capsule Active 125 mg PO 1 to 2 times per day as needed February 26, 2025 12:00am Complies with drug therapy Start: 02-26-2025 Simethicone (G as Relief (Simethicone)) 125 mg capsule Active 125 mg PO 1 to 2 times per day as needed February 26, 2025 12:00am Complies with drug therapy SUMAtriptan 25 mg oral tablet (2 sources) Serotonin-1b and Serotonin-1d Receptor Agonist Start: 02-26-2025 take 1 tablet by mouth every two hours Sumatriptan Succinate (Imitrex) 25 mg tablet Active 0 PO .COMPLEX February 26, 2025 12:00am take 1 tab at onset of headache; if no relief may repeat 1 tab after at least 2 hrs; max = 4 tabs/24 hr PO Complies with drug therapy Start: 02-26-2025 take 1 tablet by renetta th every two hours Sumatriptan Succinate (Imitrex) 25 mg tablet Active 0 PO .COMPLEX February 26, 2025 12:00am take 1 tab at onset of headache; if no relief may repeat 1 tab after at least 2 hrs; max = 4 tabs/24 hr PO Complies with drug therapy traMADol hydrochloride 50 mg oral tablet (2 sources) Opioid Agonist Start: 02-26-2025 take 1 tablet by mouth three times daily as needed Tramadol 50 mg tablet Active 50 mg PO THREE TIMES A DAY as needed February 26, 2025 12:00am Complies with drug therapy Start: 02-26-2025 take 1 tablet by renetta th three times daily as needed Tramadol 50 mg tablet Active 50 mg PO THREE TIMES A DAY as needed February 26, 2025 12:00am Complies with drug therapy vitamin b12 1 mg oral capsule (2 sources) Vitamin B12 Start: 02-26-2025 take 1 capsule by mouth every month Cyanocobalamin (Vitamin B-12) 1,000 mcg capsule Active 1000 ug PO EVERY MONTH February 26, 2025 12:00am Complies with drug therapy Start: 02-26-2025 take 1 capsule by mo [facility] every month Cyanocobalamin (Vitamin B-12) 1,000 mcg capsule Active 1000 ug PO EVERY MONTH February 26, 2025 12:00am Complies with drug therapy zolpidem tartrate 5 mg oral tablet (20 sources) gamma-Aminobutyric Acid-ergic Agonist Start: 05-21-2015 take 2 tablets by mouth at bedtime as needed for sleep Zolpidem 5 MG tablet Active 10 mg PO AT BEDTIME NEEDED as needed for SLEEP 60 0 May 21, 2015 1:00am Complies with drug therapy Start: 04-06-2015 End: 04-09-2015 take 1 tablet by mouth once daily Zolpidem (Ambien) 10 MG tablet Discontinued 10 mg PO DAILY 10 0 April 09, 2015 6:32pm April 09, 2015 9:20pm Completed/Discontinued Medications Medication Drug Class(es) Dates Sig (Normalized) Sig (Original) acetaminophen 325 mg / oxyCODONE hydrochloride 10 mg oral tablet (11 sources) Opioid Agonist Start: 04-07-2015 End: 04-09-2015 Oxycodone-Acetamino phen 1 EACH tablet Discontinued 1 {tbl} PO EVERY 8 HOURS NEEDED as needed for pain April 07, 2015 1:00am April 09, 2015 6:28pm ALPRAZolam 0.5 mg oral tablet (20 sources) Benzodiazepine Start: 04-22-2015 End: 02-26-2025 take 1 tablet by mouth three times daily as needed for anxiety Alprazolam 0.5 MG tablet Discontinued 0.5 mg PO 3 TIMES DAILY NEEDED as needed for Anxiety 90 0 May 21, 2015 7:26pm February 26, 2025 3:18pm Start: 04-09-2015 End: 04-13-2015 take 1 tablet by mouth three times daily as needed for anxiety Alprazolam 0.5 MG tablet Discontinued 0.5 mg PO 3 TIMES DAILY NEEDED as needed for ANXIETY 0 0 April 13, 2015 1:00am April 13, 2015 9:20am calcium ascorbate 50 mg / ferrous asparto glycinate 50 mg / polysaccharide iron complex 100 mg / succinic acid 50 mg oral capsule (11 sources) Start: 04-13-2015 End: 04-13-2015 Iron Aspgl,Ps Complex-Vit C-Sa (Ferrex 150 Plus) 150 MG capsule Discontinued 150 mg PO DAILY WITH MEALS 0 0 April 13, 2015 1:00am April 13, 2015 9:21am diphenhydrAMINE hydrochloride 25 mg oral capsule (20 sources) Histamine-1 Receptor Antagonist Start: 04-22-2015 End: 02-26-2025 apply 1 capsule topically every six hours as needed Diphenhydramine Hcl (Banophen) 25 MG capsule Discontinued 25 mg PO EVERY 6 HOURS NEEDED as needed for Rash/Topical Irritation April 22, 2015 1:00am February 26, 2025 3:18pm Start: 04-13-2015 End: 04-13-2015 apply 1 capsule topically twice daily as needed Diphenhydramine Hcl (Banophen) 25 MG capsule Discontinued 25 mg PO TWICE DAILY NEEDED as needed for RASH/TOPICAL IRRITATION 0 0 April 13, 2015 1:00am April 13, 2015 9:20am docusate calcium 240 mg oral capsule (20 sources) Start: 04-09-2015 End: 02-26-2025 take 1 capsule by mouth twice daily Docusate Calcium (Stool Softener (Docusate Ivan)) 240 MG capsule Discontinued 240 mg PO TWICE A DAY 60 0 May 21, 2015 7:26pm February 26, 2025 3:18pm 0.4 ml enoxaparin sodium 100 mg/ml prefilled syringe (20 sources) Low Molecular Weight Heparin Start: 04-22-2015 End: 02-26-2025 Enoxaparin 40 MG/0.4 ML syringe Discontinued 30 mg SC DAILY@0600 April 22, 2015 1:00am February 26, 2025 3:18pm Start: 04-09-2015 End: 04-13-2015 Enoxaparin 40 MG/0.4 ML syri nge Discontinued 40 mg SC DAILY@0600 1 0 April 09, 2015 1:00am April 13, 2015 8:53am start 04/10/15, continue for three weeks ergocalciferol 1.25 mg oral capsule (20 sources) Provitamin D2 Compound Start: 04-06-2015 End: 05-21-2015 Ergocalciferol (Vitamin D2) (Vitamin D2) 50,000 UNIT capsule Discontinued [id number] U PO TU April 22, 2015 1:53pm May 21, 2015 7:27pm esomeprazole 40 mg delayed release oral capsule (11 sources) Proton Pump Inhibitor Start: 04-06-2015 End: 02-26-2025 take 1 capsule by mouth once daily Esomeprazole Magnesium (Nexium) 40 MG capsule Discontinued 40 mg PO DAILY April 06, 2015 1:00am February 26, 2025 3:18pm ferrous sulfate 325 mg oral tablet (20 sources) Start: 04-22-2015 End: 02-26-2025 take 1 tablet by mouth twice daily at mealtime Ferrous Sulfate (Iron (Ferrous Sulfate)) 325 MG tablet Discontinued 325 mg PO TWICE DAILY WITH MEALS 60 0 May 21, 2015 7:26pm February 26, 2025 3:18pm Start: 04-09-2015 End: 04-13-2015 take 1 tablet by mouth twice daily at mealtime Ferrous Sulfate 325 MG tablet Discontinued 325 mg PO TWICE DAILY WITH MEALS 0 April 09, 2015 1:00am April 13, 2015 8:56am linaclotide 0.145 mg oral capsule (11 sources) Guanylate Cyclase-C Agonist Start: 04-06-2015 End: 04-09-2015 take 1 capsule by mouth once daily Linaclotide (Linzess) 145 MCG capsule Discontinued 145 ug PO DAILY April 06, 2015 1:00am April 09, 2015 6:28pm lisinopril 5 mg oral tablet (20 sources) Angiotensin Converting Enzyme Inhibitor Start: 04-06-2015 End: 02-26-2025 take 1 tablet by mouth once daily Lisinopril 5 MG tablet Discontinued 5 mg PO DAILY 30 0 May 21, 2015 7:26pm February 26, 2025 3:20pm morphine sulfate 30 mg extended release oral tablet (20 sources) Opioid Agonist Start: 05-20-2015 End: 02-26-2025 take 1 tablet by mouth twice daily Morphine 30 MG tablet Discontinued 30 mg PO TWICE A DAY 60 0 May 20, 2015 1:00am February 26, 2025 3:20pm Start: 04-22-2015 End: 02-26-2025 Morphine 30 MG tablet Discon tinued 15 mg PO Q8H April 22, 2015 1:53pm February 26, 2025 3:20pm Start: 04-09-2015 End: 04-22-2015 take 1 tablet by mouth twice daily Morphine 30 MG tablet Discontinued 30 mg PO TWICE A DAY 30 0 April 09, 2015 1:00am April 22, 2015 1:53pm Start: 04-06-2015 End: 04-09-2015 take 20 mg by mouth twice daily Morphine Sulfate ER Di scontinued 20 mg PO TWICE A DAY April 06, 2015 1:00am April 09, 2015 6:28pm oxyCODONE hydrochloride 5 mg oral tablet (20 sources) Opioid Agonist Start: 04-22-2015 End: 02-26-2025 take 3 tablets by mouth every four hours as needed for pain Oxycodone 5 MG tablet Discontinued 15 mg PO EVERY 4 HOURS NEEDED as needed for Pain 60 0 May 27, 2015 8:45am February 26, 2025 3:20pm Start: 04-09-2015 End: 04-13-2015 take 3 tablets by mouth every four hours as needed for pain Oxycodone 5 MG tablet Discontinued 15 mg PO EVERY 4 HOURS NEEDED as needed for PAIN 0 0 April 13, 2015 1:00am April 13, 2015 9:21am potassium citrate 15 meq extended release oral tablet (11 sources) Start: 04-06-2015 End: 02-26-2025 Potassium Citrate (Urocit-K 15) 15 MEQ tablet extended release Discontinued 10 meq PO TWICE A DAY April 06, 2015 1:00am February 26, 2025 3:20pm risedronate sodium 150 mg oral tablet (11 sources) Start: 04-06-2015 End: 04-09-2015 take 1 tablet by mouth every month Risedronate (Actonel) 150 MG tablet Discontinued 150 mg PO EVERY MONTH April 06, 2015 1:00am April 09, 2015 6:33pm venlafaxine 25 mg oral tablet (20 sources) Serotonin and Norepinephrine Reuptake Inhibitor Start: 04-09-2015 End: 02-26-2025 take 2 tablets by mouth twice daily Venlafaxine 25 MG tablet Discontinued 50 mg PO TWICE A DAY 60 0 May 21, 2015 7:26pm February 26, 2025 3:20pm Start: 04-07-2015 End: 04-09-2015 take 1 tablet by mouth twice daily Venlafaxine 37.5 MG tablet Discontinued 37.5 mg PO TWICE A DAY April 07, 2015 1:00am April 09, 2015 6:29pm Problems Active Problems Problem Classification Problem Date Documented Date Episodic/Chronic Acute posthemorrhagic anemia (11 sources) Acute posthemorrhagic anemia; Translations: [Acute posthemorrhagic anemia] 04-09-2015 Episodic Comment on above: required PRBC's x1 Chronic kidney disease (1 source) Chronic kidney disease; Translations: [Chronic kidney disease, stage 3 unspecified] Onset: 12-17-2024 Coagulation and hemorrhagic disorders (11 sources) Thrombocytopenic disorder; Translations: [Thrombocytopenia, unspecified] 04-06-2015 Chronic Deficiency and other anemia (2 sources) Anemia in chronic kidney disease; Translations: [Anemia in chronic kidney disease] Onset: 10-12-2024 Chronic Deficiency and other anemia (11 sources) Chronic anemia; Translations: [Anemia, unspecified] 04-09-2015 Episodic Disorders of lipid metabolism (1 source) Hyperlipidemia, unspecified; Translations: [Hyperlipidemia, unspecified] Onset: 10-17-2024 Chronic E Codes: Fall (11 sources) Fall; Translations: [Unspecified fall, initial encounter] 04-06-2015 Episodic Essential hypertension (11 sources) Hypertensive disorder; Translations: [Essential (primary) hypertension] 04-06-2015 Chronic Fracture of neck of femur (hip) (11 sources) Closed fracture of hip; Translations: [Fracture of unspecified part of neck of left femur, initial encounter for closed fracture] 04-06-2015 Episodic Genitourinary symptoms and ill-defined conditions (5 sources) Urge incontinence of urine; Translations: [Urge incontinence] Onset: 10-17-2024 02-21-2025 Chronic Genitourinary symptoms and ill-defined conditions (1 source) Personal history of urinary (tract) infections; Translations: [Personal history of urinary (tract) infections] Onset: 03-14-2025 Episodic Hypertension with complications and secondary hypertension (2 sources) Hypertensive heart and chronic kidney disease without heart failure, with stage 1 through stage 4 chronic kidney disease, or unspecified chronic kidney disease; Translations: [Hypertensive heart and chronic kidney disease without heart failure, with stage 1 through stage 4 chronic kidney disease, or unspecified chronic kidney disease] Onset: 07-11-2024 Chronic Menopausal disorders (4 sources) Atrophy of vagina; Translations: [Postmenopausal atrophic vaginitis] 02-21-2025 Chronic Other connective tissue disease (11 sources) Fibromyalgia; Translations: [Fibromyalgia] 04-06-2015 Episodic Other diseases of bladder and urethra (4 sources) Overactive bladder; Translations: [Overactive bladder] 02-21-2025 Chronic Other nervous system disorders (1 source) Idiopathic progressive neuropathy; Translations: [Idiopathic progressive neuropathy] Onset: 02-04-2025 Chronic Spondylosis; intervertebral disc disorders; other back problems (11 sources) Chronic back pain ; Translations: [Dorsalgia, unspecified] 04-06-2015 Episodic Thyroid disorders (13 sources) Hypothyroidism; Translations: [Hypothyroidism, unspecified] Onset: 02-04-2025 04-06-2015 Chronic Unclassified (1 source) Acute cough; Translations: [Acute cough] Onset: 09-28-2024 Urinary tract infections (5 sources) Urinary tract infectious disease; Translations: [Urinary tract infection, site not specified] Onset: 02-26-2025 02-21-2025 Episodic Past or Other Problems Problem Classification Problem Date Documented Da te Episodic/Chronic Calculus of urinary tract (6 sources) Kidney stone; Translations: [Calculus of kidney] Onset: 08-16-2024 02-21-2025 Episodic Deficiency and other anemia (1 source) Anemia, unspecified; Translations: [Anemia, unspecified] Onset: 05-18-2024 Episodic Diabetes mellitus without complication (1 source) Prediabetes; Translations: [Prediabetes] Onset: 08-16-2024 Episodic Results Test Name Value Interpretation Reference Range Facility Laboratory - Chemistry and C hemistry - challengeOrdered By: Rachele Velasquez on 02-26-2025 Bilirubin Ql (U) Negative [facility] Glucose Ql (U) Negative [facility] Ketones Ql (U) Negative [facility] pH (U) 6 [pH] [facility] Specific gravity (U) [Rel density] 1.010 [facility] Urobilinogen (U) [Mass/Vol] 0.1895394 mg/dL [facility] - Hematology and Cell countsOrdered By: Rachele Velasquez on 02-26-2025 Hemoglobin Ql (U) Negative [facility] - UrinalysisOrder ed By: Rachele Velasquez on 02-26-2025 Nitrite Ql (U) Negative [facility] Protein Ql (U) Negative [facility] MR/Tanisha 02-26-2025 /[facility] [address], [address] [place] [address] OFFICE VISIT Date of Service: 02/26/25 MR#: [id number] Acct: [id number] Name: JUSTYN CROWDER Rep #: [id number] : 1940 Provider: Dr. 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 Required: No Accompanied by: daughter Is patient in pain?: No Allergies cephalexin Allergy (Verified 02/26/25 15:26) Rash Medications ???Medication ???Instructions ???Recorded ???Confirmed ???Type ondansetron 4 mg disintegrating 4 mg PO Q8H PRN PRN Nausea 5 02/26/25 History tablet calcium carbonate (Oyster Shell 500 mg PO DAILY@0800 #30 TABLETS 0 05/20/15 02/26/25 Rx Calcium 500) allopurinol 300 mg tablet 300 mg PO DAILY #30 TABLETS 02/26/25 Rx ergocalciferol (vitamin D2) 1,250 50,000 unit PO TU #10 caps 02/26/25 Rx mcg (50,000 unit) capsule (Vitamin D2) gabapentin 600 mg tablet 600 mg PO BIDCM #60 TABLETS 02/26/25 Rx levothyroxine 175 mcg tablet 175 mcg PO DAILY #30 TABLETS 05/2102/26/25 Rx (Levoxyl) zolpidem 5 mg tablet 10 mg (2 x 5 mg) PO QHS PRN PRN 02/26/25 Rx SLEEP #60 TABLETS acetaminophen 325 mg tablet 325 mg PO ONCE PRN 02/26/25 History (Tylenol) aluminum-mag hydroxide-simethicone 5 ml PO ONCE 02/26/25 02/26/25 H istory 200 mg-200 mg-20 mg/5 mL oral susp (Trina-Lanta) carboxymethylcellulos e sodium 0.5 1 drp ophthalmic (eye) BID 02/26/25 History % eye drops in a dropperette (Refresh Plus) cholecalciferol (vitamin D3) 50 50 mcg PO QDAY 02/26/25 02/26/25 H istory mcg (2,000 unit) capsule (Vitamin D3) cranberry conc-vit ml PO 02/26/25 02/26/25 History K-fsicqde-KAD-bromela in 3,875 mg/30 mL oral liquid (UTI-Stat) cyanocobalamin (vitamin B-12) 1,000 mcg PO QMONTH 02/26/2502/26 History 1,000 mcg capsule dexlansoprazole 30 mg 30 mg PO QDAY 02/26/25 02/26/25 Hi story capsule,biphase delayed release duloxetine 30 mg capsule,delayed 30 mg PO QDAY 02/26/25 02/26/25 Hi story release estradiol 0.01% (0.1 mg/gram) vaginal 02/26/25 02/26/25 History vaginal cream famotidine 20 mg tablet (Pepcid) 20 mg PO QDAY 02/26/25 02/26/25 Hi story gabapentin 800 mg tablet mg PO 02/26/25 02/26/25 History guaifenesin 100 mg/5 mL oral 200 mg PO Q4H PRN 02/26/25 5 History liquid (Trina-Tussin) hydrocortisone 1 % topical cream 1 applic topical BID PRN 02/26/25 02/26/25 History (Anti-Itch (hydrocortisone)) lidocaine 4 % topical patch 1 patch topical QDAY PRN 02/26/25 02/26/25 History (AsperFlex (lidocaine)) magnesium hydroxide 400 mg/5 mL 5 ml PO ONCE 02/26/25 02/26/25 His tory oral suspension (Milk of Magnesia) ropinirole 0.5 mg tablet 0.5 mg PO QDAY 02/26/25 02/26/25 H istory sennosides 8.6 mg capsule (senna) 8.6 mg PO QDAY 02/26/25 02/26/25 History simethicone 125 mg capsule (Gas 125 mg PO QD-BID PRN 02/26/2502/13 History Relief (simethicone)) sumatriptan succinate 25 mg tablet See Rx Instructions PO .COMPLEX 02/26/25 02/26/25 History (Imitrex) tramadol 50 mg tablet 50 mg PO TID PRN 02/26/25 02/26/25 History vitamins A,C,U-hbjv-ekrudi 4,296 1 cap PO BID 02/26/25 02/26/25 His tory mcg-226 mg-90 mg capsule (PreserVision AREDS) Have you fallen in the past year?: No Nurse's Note: x4 in less than 10 months ddenies sx today PFSH Social History Smoking Status: Never smoker HPI HPI Urology Chief Complaint: frequenct uti Details: JUSTYN CROWDER, is a 85 F. She is here for follow up urinary tract infections. She has had multiple urinary infections since the last visit. She thinks she has had about 4-5 since April 2024. She has not had hematuria since her last visit. She is taking the following prevention: UTI stat supplement, estrogen cream. The nursing facility has stopped the nightly antibiotic. It was trimethoprim and there was maybe an issue with potassium. We discussed Macrodantin 50mg and adding a probiotic. She is also leaking all of the time, using 6 pads a day and pull ups with pads in them during the night. She would like to try a medication for this. We discussed Gemtesa and the side effects. ROS Const Constitutional: No chills, fatigue, fever(s), headache(s), night sweats, weakness, weight change, abnormal sleep pattern or change in appetite Eyes Eyes: No change in vision ENT ENT: No headache(s) or dry mouth Resp Respiratory: No cough, chest congestion, shortnes (more content not included)... Normal [facility] No Panel InformationOrdered By: Rachele Velasquez on 02-26-2025 Urine Leukocytes Positive [facility] Urine Non-Hemolyzed Blood Negative [facility] Urine Cultureon 02-13-2025 [facility] Escherichia coli Bloomingrose Count 80,000-100,000 Escherichia coli: REACTION Ampicillin Islt PARMINDER <=2 Ampicillin+Sulbac Islt PARMINDER <=2 S Cefepime Islt PARMINDER <=0.12 S cefTRIAXone Islt PARMINDER <=0.25 S Ciprofloxacin Islt PARMINDER >=4 R B-Lactamase Extended Susc Islt NEG Gentamicin Islt PARMINDER <=1 S levoFLOXacin Islt PARMINDER >=8 R Meropenem Islt PARMINDER <=0.25 S Nitrofurantoin Islt PARMINDER <=16 S Pip+Tazo Islt PARMINDER <=4 S TMP SMX Islt PARMINDER <=20 S Normal [facility] Comment on above: Performed By: #### M 100.2200, L100.0500, L400.0001, L500.2500 #### [facility] [address] [place], [place], [id number] Urinalysis, Completeon 02-11 BACTERIA 2+ /hpf Normal None Seen [facility] Comment on above: Order Comment: CLEAN CATCH Performed By: #### M 100.2200, L100.0500, L400.0001, L500.2500 #### [facility] [address] [place], [address] WBC 10-25 SEEN Normal 0-5 [facility] Comment on above: Order Comment: CLEAN CATCH Performed By: #### M 100.2200, L100.0500, L400.0001, L500.2500 #### [facility] [address] [place], [address] EPI,SQUAMOUS 0 SEEN Normal 5-10 [facility] Comment on above: Order Comment: CLEAN CATCH Performed By: #### M 100.2200, L100.0500, L400.0001, L500.2500 #### [facility] [address] [place], [address] Mucus Ql (Urine sed) 0 SEEN Normal [facility] Comment on above: Order Comment: CLEAN CATCH Performed By: #### M 100.2200, L100.0500, L400.0001, L500.2500 #### [facility] [address] [place], [address] RBC 0 SEEN Normal 0-5 [facility] Comment on above: Order Comment: CLEAN CATCH Performed By: #### M 100.2200, L100.0500, L400.0001, L500.2500 #### [facility] [address] [place], [address] Bilirubin Test strip Ql (U)O rdered By: Dev Gutierrez on 02-10-2025 Bilirubin Ql (U) Negative Negative [facility] Ketones Test strip Ql (U)Ord ered By: Dev Gutierrez on 02-10-2025 Ketones Ql (U) Negative Negative [facility] Microscopic analysis of urin e for red blood cells (RBC)Ordered By: Dev Gutierrez on 02-10-2025 Microscopic analysis of urine for red blood cells (RBC) 0 SEEN /hpf 0-5 [facility] Mucus LM Ql (Urine sed)Order ed By: Dev Gutierrez on 02-10-2025 Mucus Ql (Urine sed) 0 SEEN /hpf [facility] Nitrite Test strip Ql (U)Ord ered By: Dev Gutierrez on 02-10-2025 Nitrite Ql (U) Positive High Negative [facility] Protein Test strip Ql (U)Ord ered By: Dev Gutierrez on 02-10-2025 Protein Ql (U) 30 mg/dl High Negative [facility] Squamous epithelial cells de tection in urine sediment by light microscopyOrdered By: Dev Gutierrez on 02-10-2025 Epithelial cells.squamous LM Ql (Urine sed) 0 SEEN /hpf 5-10 [facility] Urine clarityOrdered By: Danielle Gutierrez on 02-10-2025 Clarity (U) Clear Clear [facility] Urine color determinationOrd ered By: Dev Gutierrez on 02-10-2025 Color (U) Yellow Yellow [facility] Urine cultureOrdered By: Danielle Gutierrez on 02-10-2025 Bacteria identified Cx Nom (U) Escherichia coli Abnormal [facility] Urine glucose detectionOrder ed By: Dev Gutierrez on 02-10-2025 Glucose Ql (U) Normal mg/dl Normal [facility] Urine leukocyte esterase det ection by dipstickOrdered By: Dev Gutierrez on 02-10-2025 Leukocyte esterase Test strip Ql (U) 500 /ul High Negative [facility] Urine pHOrdered By: Dev rodriguez on 02-10-2025 pH (U) 6.0 [pH] 5.0 - 8.0 [facility] Urine sediment bacteria coun t by microscopy (number/high power field)Ordered By: Dev Gutierrez on 02-10-2025 Bacteria LM.HPF (Urine sed) [#/Area] 2 /[HPF] None Seen [facility] Urine specific gravity measu rementOrdered By: Dev Gutierrez on 02-10-2025 Specific gravity (U) [Rel density] 1.010 1.002-1.030 [facility] Urine urobilinogen measureme ntOrdered By: Dev Gutierrez on 02-10-2025 Urobilinogen Ql (U) Normal mg/dl Normal [facility] White blood cell countOrdere d By: Dev Gutierrez on 02-10-2025 White blood cell count 10-25 SEEN /hpf 0-5 [facility] Anion gap in Serum or Plasma Ordered By: Dev Gutierrez on 01-28-2025 Anion gap [Moles/Vol] 12 mmol/L 5-15 [facility] BUN/creatinine ratioOrdered By: Dev Gutierrez on 01-28-2025 Urea nitrogen/Creatinine [Mass ratio] 29.2 mg/mg High 10-20 [facility] Bilirubin, totalOrdered By: Dev Gutierrez on 01-28-2025 Bilirubin [Mass/Vol] 1.13 mg/dL 0.00-1.30 [facility] CBC-Complete Blood Cnt No Di ffon 01-28-2025 Erythrocyte distribution width (RBC) [Ratio] 13.8 % Normal 11.6-14.6 [facility] Comment on above: Order Comment: . Performed By: #### L 500.2500, M100.678, L100.0500 #### [facility] [address] [place], [address] Hematocrit (Bld) [Volume fraction] 31.2 % Low 37-47 [facility] Comment on above: Order Comment: .1 Performed By: #### L 500.2500, M100.678, L100.0500 #### [facility] [address] [place], [address] Hemoglobin (Bld) [Mass/Vol] 10.3 g/dL Low 12.0-15.0 [facility] Comment on above: Order Comment: .1 Performed By: #### L 500.2500, M100.678, L100.0500 #### [facility] [address] [place], [address] MCH (RBC) [Entitic mass] 30.8 pg Normal 27.0-32.0 [facility] Comment on above: Order Comment: .1 Performed By: #### L 500.2500, M100.678, L100.0500 #### [facility] [address] [place], [address] MCHC (RBC) [Mass/Vol] 33.0 g/dL Normal 32-36 [facility] Comment on above: Order Comment: 209.1 Performed By: #### L 500.2500, M100.678, L100.0500 #### [facility] [address] [place], [address] MCV (RBC) [Entitic vol] 93.4 fL Normal 81-[address] [facility] Comment on above: Order Comment: 209.1 Performed By: #### L 500.2500, M100.678, L100.0500 #### [facility] [address] [place], [address] Platelet mean volume (Bld) [Entitic vol] 9.7 fL Normal 6.2-12.0 [facility] Comment on above: Order Comment: .1 Performed By: #### L 500.2500, M100.678, L100.0500 #### [facility] [address] [place], [address] Platelets (Bld) [#/Vol] 134 10*3/uL Low 150-450 [facility] Comment on above: Order Comment: .1 Performed By: #### L 500.2500, M100.678, L100.0500 #### [facility] [address] [place], [address] RBC (Bld) [#/Vol] 3.34 10*6/uL Low 4.2-5.4 [facility] Comment on above: Order Comment: 209.1 Performed By: #### L 500.2500, M100.678, L100.0500 #### [facility] [address] [place], [address] RDW SD 46.2 fl High 35.1-43.9 [facility] Comment on above: Order Comment: 209.1 Performed By: #### L 500.2500, M100.678, L100.0500 #### [facility] [address] [place], [address] WBC (Bld) [#/Vol] 5.1 10*3/uL Normal 4.4-11.0 [facility] Comment on above: Order Comment: 209.1 Performed By: #### L 500.2500, M100.678, L100.0500 #### [facility] [address] [place], [address] Carbon dioxide, total [Moles /volume] in Central venous bloodOrdered By: Dev Gutierrez on 01-28-2025 CO2 [Moles/Vol] 21.1 mmol/L 21.0-32.0 [facility] Chloride assayOrdered By: Morris on 01-28-2025 Chloride [Moles/Vol] 110 mmol/L High 98-108 [facility] Comprehensive Metabolic Prof ilon 01-28-2025 Albumin [Mass/Vol] 3.9 g/dL Normal 3.4-4.8 [facility] Comment on above: Order Comment: . Performed By: #### L 500.2500, M100.678, L100.0500 #### [facility] [address] [place], [address] Albumin/Globulin [Mass ratio] 1.6 {ratio} Normal 0.9-2.4 [facility] Comment on above: Order Comment: 209.1 Performed By: #### L 500.2500, M100.678, L100.0500 #### [facility] [address] [place], [address] ALK PHOS 69 U/L Normal 35-104 [facility] Comment on above: Order Comment: 209.1 Performed By: #### L 500.2500, M100.678, L100.0500 #### [facility] [address] [place], [address] ALT [Catalytic activity/Vol] 13 U/L Normal <=34 [facility] Comment on above: Order Comment: 209.1 Performed By: #### L 500.2500, M100.678, L100.0500 #### [facility] [address] [place], [address] AST [Catalytic activity/Vol] 19 U/L Normal <=31 [facility] Comment on above: Order Comment: 209.1 Performed By: #### L 500.2500, M100.678, L100.0500 #### [facility] [address] [place], [address] Bilirubin [Mass/Vol] 1.13 mg/dL Normal 0.00-1.30 [facility] Comment on above: Order Comment: .1 Performed By: #### L 500.2500, M100.678, L100.0500 #### [facility] [address] [place], [address] BUN/CRE 29.2 RATIO High 10-20 [facility] Comment on above: Order Comment: 209.1 Performed By: #### L 500.2500, M100.678, L100.0500 #### [facility] [address] [place] [place], [address] Calcium [Mass/Vol] 9.2 mg/dL Normal 7.6-11.0 [facility] Comment on above: Order Comment: 209.1 Performed By: #### L 500.2500, M100.678, L100.0500 #### [facility] [address] [place], [address] Chloride [Moles/Vol] 110 mmol/L High 98-108 [facility] Comment on above: Order Comment: 209.1 Performed By: #### L 500.2500, M100.678, L100.0500 #### [facility] [address] [place], [address] CO2 [Moles/Vol] 21.1 mmol/L Normal 21.0-32.0 [facility] Comment on above: Order Comment: . Performed By: #### L 500.2500, M100.678, L100.0500 #### [facility] [address] [place], [address] Creatinine [Mass/Vol] 1.06 mg/dL Normal 0.70-1.20 [facility] Comment on above: Order Comment: . Performed By: #### L 500.2500, M100.678, L100.0500 #### [facility] [address] [place], [address] GAP 12 Normal 5-15 [facility] Comment on above: Order Comment: . Performed By: #### L 500.2500, M100.678, L100.0500 #### [facility] [address] [place], [address] GFR/1.73 sq M.predicted among non-blacks MDRD (S/P/Bld) [Vol rate/Area] 52 mL/min/{1.73_m2} Low >60 [facility] Comment on above: Order Comment: . Result Comment: mL/m in/1.73m2 CKD-EPI Creatinine Equation (2020) Performed By: #### L 500.2500, M100.678, L100.0500 #### [facility] [address] [place], [address] Globulin (S) [Mass/Vol] 2.4 g/dL Normal 2.2-4.2 [facility] Comment on above: Order Comment: . Performed By: #### L 500.2500, M100.678, L100.0500 #### [facility] [address] [place], [address] Glucose [Mass/Vol] 98 mg/dL Normal 70-99 [facility] Comment on above: Order Comment: 209.1 Performed By: #### L 500.2500, M100.678, L100.0500 #### [facility] [address] [place], [address] Potassium [Moles/Vol] 3.6 mmol/L Normal 3.3-5.1 [facility] Comment on above: Order Comment: 209.1 Performed By: #### L 500.2500, M100.678, L100.0500 #### [facility] [address] [place], [address] Sodium [Moles/Vol] 143 mmol/L Normal 133-145 [facility] Comment on above: Order Comment: 209.1 Performed By: #### L 500.2500, M100.678, L100.0500 #### [facility] [address] [place], [address] T PROT 6.3 g/dL Normal 5.9-8.4 [facility] Comment on above: Order Comment: 209.1 Performed By: #### L 500.2500, M100.678, L100.0500 #### [facility] [address] [place], [address] Urea nitrogen [Mass/Vol] 31 mg/dL High 4-19 [facility] Comment on above: Order Comment: 209.1 Performed By: #### L 500.2500, M100.678, L100.0500 #### [facility] [address] [place], [address] Erythrocyte distribution wid th ratioOrdered By: Dev Gutierrez on 01-28-2025 Erythrocyte distribution width (RBC) [Ratio] 13.8 % 11.6-14.6 [facility] Erythrocyte distribution wid th standard deviationOrdered By: Dev Gutierrez on 01-28-2025 Erythrocyte distribution width (RBC) [Ratio] 46.2 fl High 35.1-43.9 [facility] Glomerular filtration rate ( GFR) estimation/1.73 sq m using serum, plasma, or whole bOrdered By: Dev Gutierrez on 01-28-2025 GFR/1.73 sq M.predicted among non-blacks MDRD (S/P/Bld) [Vol rate/Area] 52 mL/min/{1.73_m2} Low >60 [facility] Comment on above: mL/min/1.73m2 CKD-EP I Creatinine Equation (2020) Hematocrit Auto (Bld) [Volum e fraction]Ordered By: Dev Gutierrez on 01-28-2025 Hematocrit (Bld) [Volume fraction] 31.2 % Low 37-47 [facility] Hemoglobin measurementOrdere d By: Dev Gutierrez on 01-28-2025 Hemoglobin (Bld) [Mass/Vol] 10.3 g/dL Low 12.0-15.0 [facility] - Chemistry and C hemistry - challengeOrdered By: Dev Gutierrez on 01-28-2025 AST [Catalytic activity/Vol] 19 U/L <32 [facility] MCV (mean corpuscular volume ) determinationOrdered By: Dev Gutierrez on 01-28-2025 MCV (RBC) [Entitic vol] 93.4 fL 81-[address] [facility] Mean corpuscular hemoglobin (MCH) determinationOrdered By: Dev Gutierrez on 01-28-2025 MCH (RBC) [Entitic mass] 30.8 pg 27.0-32.0 [facility] Mean corpuscular hemoglobin concentration (MCHC) determinationOrdered By: Dev Gutierrez on 01-28-2025 MCHC (RBC) [Mass/Vol] 33.0 g/dL 32-36 [facility] Mean platelet volume determi nationOrdered By: Dev Gutierrez on 01-28-2025 Platelet mean volume (Bld) [Entitic vol] 9.7 fL 6.2-12.0 [facility] Platelet countOrdered By: Morris on 01-28-2025 Platelets (Bld) [#/Vol] 134 10*3/uL Low 150-450 [facility] Potassium measurement (mass/ volume)Ordered By: Dev Gutierrez on 01-28-2025 Potassium (Unsp spec) [Mass/Vol] 3.6 mmol/L 3.3-5.1 [facility] RBC Auto (Bld) [#/Vol]Ordere d By: Dev Gutierrez on 01-28-2025 RBC (Bld) [#/Vol] 3.34 10*6/uL Low 4.2-5.4 [facility] Serum creatinine measurement (mass/volume)Ordered By: Dev Gutierrez on 01-28-2025 Creatinine [Mass/Vol] 1.06 mg/dL 0.70-1.20 [facility] Serum globulin measurementOr dered By: Dev Gutierrez on 01-28-2025 Globulin (S) [Mass/Vol] 2.4 g/dL 2.2-4.[address] [facility] Serum glucose measurement (m ass/volume)Ordered By: Dev Gutierrez on 01-28-2025 Glucose [Mass/Vol] 98 mg/dL 70-99 [facility] Serum or plasma alanine tovar otransferase (ALT) measurementOrdered By: Dev Gutierrez on 01-28-2025 ALT [Catalytic activity/Vol] 13 U/L <35 [facility] Serum or plasma albumin maude urement (mass/volume)Ordered By: Dev Gutierrez on 01-28-2025 Albumin [Mass/Vol] 3.9 g/dL 3.4-4.8 [facility] Serum or plasma albumin/glob ulin mass ratioOrdered By: Dev Gutierrez on 01-28-2025 Albumin/Globulin [Mass ratio] 1.6 {ratio} 0.9-2.4 [facility] Serum or plasma alkaline nilton sphatase measurementOrdered By: Dev Gutierrez on 01-28-2025 ALP [Catalytic activity/Vol] 69 U/L 35-104 [facility] Serum or plasma calcium maude urement (mass/volume)Ordered By: Dev Gutierrez on 01-28-2025 Calcium [Mass/Vol] 9.2 mg/dL 7.6-11.0 [facility] Serum or plasma urea nitroge n measurement (mass/volume)Ordered By: Dev Gutierrez on 01-28-2025 Urea nitrogen [Mass/Vol] 31 mg/dL High 4-19 [facility] Sodium levelOrdered By: Dev Gutierrez on 01-28-2025 Sodium [Moles/Vol] 143 mmol/L 133-145 [facility] TSH DL <= 0.005 mIU/L QnOrde red By: Dev Gutierrez on 01-28-2025 TSH Qn 1.290 uIU/mL 0.300-4.200 [facility] Thyroid Stim Hormone (TSH)on 01-28-2025 TSH 1.290 uIU/mL Normal 0.300-4.200 [facility] Comment on above: Order Comment: 209.1 Performed By: #### L 500.2500, M100.678, L100.0500 #### [facility] [address] [place], [address] Total proteinOrdered By: Danielle Gutierrez on 01-28-2025 Protein [Mass/Vol] 6.3 g/dL 5.9-8.4 [facility] Vitamin B12on 01-28-2025 Cobalamin (Vitamin B12) [Mass/Vol] 690 pg/mL Normal 180-914 [facility] Comment on above: Order Comment: 209.1 Performed By: #### L 500.2500, M100.678, L100.0500 #### [facility] [address] [place], [address] Vitamin B12 ser/plasOrdered By: Dev Gutierrez on 01-28-2025 Cobalamin (Vitamin B12) [Mass/Vol] 690 pg/mL 180-914 [facility] White blood cell (WBC) count Ordered By: Dev Gutierrez on 01-28-2025 WBC (Bld) [#/Vol] 5.1 10*3/uL 4.4-11.0 [facility] Urine Cultureon 01-09-2025 [facility] Presumptive E. coli Bloomingrose Count 80,000-100,000 Presumptive E. coli: REACTION Ampicillin Islt PARMINDER 8 Ampicillin+Sulbac Islt PARMINDER <=2 S Cefepime Islt PARMINDER <=0.12 S cefTRIAXone Islt PARMINDER <=0.25 S Ciprofloxacin Islt PARMINDER >=4 R B-Lactamase Extended Susc Islt NEG Gentamicin Islt PARMINDER <=1 S levoFLOXacin Islt PARMINDER >=8 R Meropenem Islt PARMINDER <=0.25 S Nitrofurantoin Islt PARMINDER <=16 S Pip+Tazo Islt PARMINDER <=4 S TMP SMX Islt PARMINDER <=20 S Normal [facility] Comment on above: Performed By: #### M 100.2200, L100.0500, L400.0001, L500.2500 #### [facility] [address] [place], [address] Urinalysis, Completeon 01-07 -2024 EPI,TRANSITION 5-10 SEEN Normal 0-5 [facility] Comment on above: Order Comment: 209.1 Performed By: #### M 100.2200, L100.0500, L400.0001, L500.2500 #### [facility] [address] [place], [address] BACTERIA 2+ /hpf Normal None Seen [facility] Comment on above: Order Comment: 209.1 Performed By: #### M 100.2200, L100.0500, L400.0001, L500.2500 #### [facility] [address] [place], [address] EPI,SQUAMOUS 10-25 SEEN Normal 5-10 [facility] Comment on above: Order Comment: 209.1 Performed By: #### M 100.2200, L100.0500, L400.0001, L500.2500 #### [facility] [address] [place], [address] RBC 0-5 SEEN Normal 0-5 [facility] Comment on above: Order Comment: 209.1 Performed By: #### M 100.2200, L100.0500, L400.0001, L500.2500 #### [facility] [address] [place], [address] WBC >100 SEEN Normal 0-5 [facility] Comment on above: Order Comment: 209.1 Performed By: #### M 100.2200, L100.0500, L400.0001, L500.2500 #### [facility] [address] [place], [address] Mucus Ql (Urine sed) 0 SEEN Normal [facility] Comment on above: Order Comment: . Performed By: #### M 100.2200, L100.0500, L400.0001, L500.2500 #### [facility] [address] [place], [address] Bilirubin Test strip Ql (U)O rdered By: Dev Gutierrez on 01-06-2025 Bilirubin Ql (U) Negative Negative [facility] Ketones Test strip Ql (U)Ord ered By: Dev Gutierrez on 01-06-2025 Ketones Ql (U) Negative Negative [facility] Microscopic analysis of urin e for red blood cells (RBC)Ordered By: Dev Gutierrez on 01-06-2025 Microscopic analysis of urine for red blood cells (RBC) 0-5 SEEN /hpf 0-5 [facility] Mucus LM Ql (Urine sed)Order ed By: Dev Gutierrez on 01-06-2025 Mucus Ql (Urine sed) 0 SEEN /hpf [facility] Nitrite Test strip Ql (U)Ord ered By: Dev Gutierrez on 01-06-2025 Nitrite Ql (U) Positive High Negative [facility] Protein Test strip Ql (U)Ord ered By: Dev Gutierrez on 01-06-2025 Protein Ql (U) 30 mg/dl High Negative [facility] Squamous epithelial cells de tection in urine sediment by light microscopyOrdered By: Dev Gutierrez on 01-06-2025 Epithelial cells.squamous LM Ql (Urine sed) 10-25 SEEN /hpf 5-10 [facility] Transitional cells detection in urine sediment by light microscopyOrdered By: Dev Gutierrez on 01-06-2025 Transitional cells LM Ql (Urine sed) 5-10 SEEN /hpf 0-5 [facility] Urine clarityOrdered By: Danielle Gutierrez on 01-06-2025 Clarity (U) Cloudy Clear [facility] Urine color determinationOrd ered By: Dev Gutierrez on 01-06-2025 Color (U) Yellow Yellow [facility] Urine cultureOrdered By: Danielle Gutierrez on 01-06-2025 Bacteria identified Cx Nom (U) Presumptive E. coli Abnormal [facility] Urine glucose detectionOrder ed By: Dev Gutierrez on 01-06-2025 Glucose Ql (U) Normal mg/dl Normal [facility] Urine leukocyte esterase det ection by dipstickOrdered By: Dev Gutierrez on 01-06-2025 Leukocyte esterase Test strip Ql (U) 500 /ul High Negative [facility] Urine pHOrdered By: Dev rodriguez on 01-06-2025 pH (U) 6.0 [pH] 5.0 - 8.0 [facility] Urine sediment bacteria coun t by microscopy (number/high power field)Ordered By: Dev Gutierrez on 01-06-2025 Bacteria LM.HPF (Urine sed) [#/Area] 2 /[HPF] None Seen [facility] Urine specific gravity measu rementOrdered By: Dev Gutierrez on 01-06-2025 Specific gravity (U) [Rel density] 1.015 1.002-1.030 [facility] Urine urobilinogen measureme ntOrdered By: Dev Gutierrez on 01-06-2025 Urobilinogen Ql (U) Normal mg/dl Normal [facility] White blood cell countOrdere d By: Dev Gutierrez on 01-06-2025 White blood cell count >100 SEEN /hpf 0- [facility] Anion gap in Serum or Plasma Ordered By: Dev Gutierrez on 11-27-2024 Anion gap [Moles/Vol] 10 mmol/L - [facility] BUN/creatinine ratioOrdered By: Dev Gutierrez on 11-27-2024 Urea nitrogen/Creatinine [Mass ratio] 18.1 mg/mg - [facility] Basic Metabolic Profile (BMP )on 11-27-2024 BUN/CRE 18.1 RATIO Normal 03-04 [facility] Comment on above: Order Comment: 209.1 Performed By: #### M 100.2200, L100.0500, L400.0001, L500.2500 #### [facility] [address] [place], [address] Calcium [Mass/Vol] 9.4 mg/dL Normal 7.6-11.0 [facility] Comment on above: Order Comment: 209.1 Performed By: #### M 100.2200, L100.0500, L400.0001, L500.2500 #### [facility] [address] [place], [address] Chloride [Moles/Vol] 106 mmol/L Normal 98-108 [facility] Comment on above: Order Comment: .1 Performed By: #### M 100.2200, L100.0500, L400.0001, L500.2500 #### [facility] [address] [place], [address] CO2 [Moles/Vol] 24.9 mmol/L Normal 21.0-32.0 [facility] Comment on above: Order Comment: 209.1 Performed By: #### M 100.2200, L100.0500, L400.0001, L500.2500 #### [facility] [address] [place], [address] Creatinine [Mass/Vol] 0.91 mg/dL Normal 0.70-1.20 [facility] Comment on above: Order Comment: 209.1 Performed By: #### M 100.2200, L100.0500, L400.0001, L500.2500 #### [facility] [address] [place], [address] GAP 10 Normal 5-15 [facility] Comment on above: Order Comment: 209.1 Performed By: #### M 100.2200, L100.0500, L400.0001, L500.2500 #### [facility] [address] [place], [address] GFR/1.73 sq M.predicted among non-blacks MDRD (S/P/Bld) [Vol rate/Area] 63 mL/min/{1.73_m2} Normal >60 [facility] Comment on above: Order Comment: . Result Comment: mL/m in/1.73m2 CKD-EPI Creatinine Equation (2020) Performed By: #### M 100.2200, L100.0500, L400.0001, L500.2500 #### [facility] [address] [place], [address] Glucose [Mass/Vol] 105 mg/dL High 70-99 [facility] Comment on above: Order Comment: . Performed By: #### M 100.2200, L100.0500, L400.0001, L500.2500 #### [facility] [address] [place], [address] Potassium [Moles/Vol] 3.7 mmol/L Normal 3.3-5.1 [facility] Comment on above: Order Comment: . Performed By: #### M 100.2200, L100.0500, L400.0001, L500.2500 #### [facility] [address] [place], [address] Sodium [Moles/Vol] 141 mmol/L Normal 133-145 [facility] Comment on above: Order Comment: . Performed By: #### M 100.2200, L100.0500, L400.0001, L500.2500 #### [facility] [address] [place], [address] Urea nitrogen [Mass/Vol] 17 mg/dL Normal 4-19 [facility] Comment on above: Order Comment: .1 Performed By: #### M 100.2200, L100.0500, L400.0001, L500.2500 #### [facility] [address] [place], [address] CBC-Complete Blood Cnt No Di ffon 11-27-2024 Erythrocyte distribution width (RBC) [Ratio] 13.0 % Normal 11.6-14.6 [facility] Comment on above: Order Comment: . Performed By: #### M 100.2200, L100.0500, L400.0001, L500.2500 #### [facility] [address] [place], [address] Hematocrit (Bld) [Volume fraction] 30.7 % Low 37-47 [facility] Comment on above: Order Comment: . Performed By: #### M 100.2200, L100.0500, L400.0001, L500.2500 #### [facility] [address] [place], [address] Hemoglobin (Bld) [Mass/Vol] 10.4 g/dL Low 12.0-15.0 [facility] Comment on above: Order Comment: . Performed By: #### M 100.2200, L100.0500, L400.0001, L500.2500 #### [facility] [address] [place], [address] MCH (RBC) [Entitic mass] 32.0 pg Normal 27.0-32.0 [facility] Comment on above: Order Comment: . Performed By: #### M 100.2200, L100.0500, L400.0001, L500.2500 #### [facility] [address] [place], [address] MCHC (RBC) [Mass/Vol] 33.9 g/dL Normal 32-36 [facility] Comment on above: Order Comment: . Performed By: #### M 100.2200, L100.0500, L400.0001, L500.2500 #### [facility] [address] [place], [address] MCV (RBC) [Entitic vol] 94.5 fL Normal 81-[address] [facility] Comment on above: Order Comment: .1 Performed By: #### M 100.2200, L100.0500, L400.0001, L500.2500 #### [facility] [address] [place], [address] Platelet mean volume (Bld) [Entitic vol] 10.1 fL Normal 6.2-12.0 [facility] Comment on above: Order Comment: .1 Performed By: #### M 100.2200, L100.0500, L400.0001, L500.2500 #### [facility] [address] [place], [address] Platelets (Bld) [#/Vol] 152 10*3/uL Normal 150-450 [facility] Comment on above: Order Comment: . Performed By: #### M 100.2200, L100.0500, L400.0001, L500.2500 #### [facility] [address] [place], [address] RBC (Bld) [#/Vol] 3.25 10*6/uL Low 4.2-5.4 [facility] Comment on above: Order Comment: . Performed By: #### M 100.2200, L100.0500, L400.0001, L500.2500 #### [facility] [address] [place], [address] RDW SD 44.8 fl High 35.1-43.9 [facility] Comment on above: Order Comment: . Performed By: #### M 100.2200, L100.0500, L400.0001, L500.2500 #### [facility] [address] [place], [address] WBC (Bld) [#/Vol] 5.2 10*3/uL Normal 4.4-11.0 [facility] Comment on above: Order Comment: .1 Performed By: #### M 100.2200, L100.0500, L400.0001, L500.2500 #### [facility] [place], [address] Carbon dioxide, total [Moles /volume] in Central venous bloodOrdered By: Dev Gutierrez on 11-27-2024 CO2 [Moles/Vol] 24.9 mmol/L 21.0-32.0 [facility] Chloride assayOrdered By: Morris on 11-27-2024 Chloride [Moles/Vol] 106 mmol/L 98-108 [facility] Erythrocyte distribution wid th ratioOrdered By: Dev Gutierrez on 11-27-2024 Erythrocyte distribution width (RBC) [Ratio] 13.0 % 11.6-14.6 [facility] Erythrocyte distribution wid th standard deviationOrdered By: Dev Gutierrez on 11-27-2024 Erythrocyte distribution width (RBC) [Ratio] 44.8 fl High 35.1-43.9 [facility] Glomerular filtration rate ( GFR) estimation/1.73 sq m using serum, plasma, or whole bOrdered By: Dev Gutierrez on 11-27-2024 GFR/1.73 sq M.predicted among non-blacks MDRD (S/P/Bld) [Vol rate/Area] 63 mL/min/{1.73_m2} >60 [facility] Comment on above: mL/min/1.73m2 CKD-EP I Creatinine Equation (2020) Hematocrit Auto (Bld) [Volum e fraction]Ordered By: Dev Gutierrez on 11-27-2024 Hematocrit (Bld) [Volume fraction] 30.7 % Low 37-47 [facility] Hemoglobin measurementOrdere d By: Dev Gutierrez on 11-27-2024 Hemoglobin (Bld) [Mass/Vol] 10.4 g/dL Low 12.0-15.0 [facility] MCV (mean corpuscular volume ) determinationOrdered By: Dev Gutierrez on 11-27-2024 MCV (RBC) [Entitic vol] 94.5 fL 81-[address] [facility] Mean corpuscular hemoglobin (MCH) determinationOrdered By: Dev Gutierrez on 11-27-2024 MCH (RBC) [Entitic mass] 32.0 pg 27.0-32.0 [facility] Mean corpuscular hemoglobin concentration (MCHC) determinationOrdered By: Dev Gutierrez on 11-27-2024 MCHC (RBC) [Mass/Vol] 33.9 g/dL 32-36 [facility] Mean platelet volume determi nationOrdered By: Dev Gutierrez on 11-27-2024 Platelet mean volume (Bld) [Entitic vol] 10.1 fL 6.2-12.0 [facility] Platelet countOrdered By: Morris on 11-27-2024 Platelets (Bld) [#/Vol] 152 10*3/uL 150-450 [facility] Potassium measurement (mass/ volume)Ordered By: Dev Gutierrez on 11-27-2024 Potassium (Unsp spec) [Mass/Vol] 3.7 mmol/L 3.3-5.1 [facility] RBC Auto (Bld) [#/Vol]Ordere d By: Dev Gutierrez on 11-27-2024 RBC (Bld) [#/Vol] 3.25 10*6/uL Low 4.2-5.4 [facility] Serum creatinine measurement (mass/volume)Ordered By: Dev Gutierrez on 11-27-2024 Creatinine [Mass/Vol] 0.91 mg/dL 0.70-1.20 [facility] Serum glucose measurement (m ass/volume)Ordered By: Dev Gutierrez on 11-27-2024 Glucose [Mass/Vol] 105 mg/dL High 70-99 [facility] Serum or plasma calcium maude urement (mass/volume)Ordered By: Dev Gutierrez on 11-27-2024 Calcium [Mass/Vol] 9.4 mg/dL 7.6-11.0 [facility] Serum or plasma urea nitroge n measurement (mass/volume)Ordered By: Dev Gutierrez on 11-27-2024 Urea nitrogen [Mass/Vol] 17 mg/dL 4-19 [facility] Sodium levelOrdered By: Dev Gutierrez on 11-27-2024 Sodium [Moles/Vol] 141 mmol/L 133-145 [facility] White blood cell (WBC) count Ordered By: Dev Gutierrez on 11-27-2024 WBC (Bld) [#/Vol] 5.2 10*3/uL 4.4-11.0 [facility] CBC-Complete Blood Cnt No Di ffon 11-05-2024 Erythrocyte distribution width (RBC) [Ratio] 13.6 % Normal 11.6-14.6 [facility] Comment on above: Order Comment: 209.1 Performed By: #### L 500.2500, M100.678, L100.0500 #### [facility] [address] [place], [address] Hematocrit (Bld) [Volume fraction] 30.7 % Low 37-47 [facility] Comment on above: Order Comment: 209.1 Performed By: #### L 500.2500, M100.678, L100.0500 #### [facility] [address] [place], [address] Hemoglobin (Bld) [Mass/Vol] 10.1 g/dL Low 12.0-15.0 [facility] Comment on above: Order Comment: 209.1 Performed By: #### L 500.2500, M100.678, L100.0500 #### [facility] [address] [place] [place], [address] MCH (RBC) [Entitic mass] 31.6 pg Normal 27.0-32.0 [facility] Comment on above: Order Comment: 209.1 Performed By: #### L 500.2500, M100.678, L100.0500 #### [facility] [address] [place], [address] MCHC (RBC) [Mass/Vol] 32.9 g/dL Normal 32-36 [facility] Comment on above: Order Comment: 209.1 Performed By: #### L 500.2500, M100.678, L100.0500 #### [facility] [address] [place], [address] MCV (RBC) [Entitic vol] 95.9 fL Normal 81-[address] [facility] Comment on above: Order Comment: .1 Performed By: #### L 500.2500, M100.678, L100.0500 #### [facility] [address] [place], [address] Platelet mean volume (Bld) [Entitic vol] 9.8 fL Normal 6.2-12.0 [facility] Comment on above: Order Comment: .1 Performed By: #### L 500.2500, M100.678, L100.0500 #### [facility] [address] [place], [address] Platelets (Bld) [#/Vol] 137 10*3/uL Low 150-450 [facility] Comment on above: Order Comment: . Performed By: #### L 500.2500, M100.678, L100.0500 #### [facility] [address] [place], [address] RBC (Bld) [#/Vol] 3.20 10*6/uL Low 4.2-5.4 [facility] Comment on above: Order Comment: .1 Performed By: #### L 500.2500, M100.678, L100.0500 #### [facility] [address] [place], [address] RDW SD 48.4 fl High 35.1-43.9 [facility] Comment on above: Order Comment: .1 Performed By: #### L 500.2500, M100.678, L100.0500 #### [facility] [address] [place], [address] WBC (Bld) [#/Vol] 4.5 10*3/uL Normal 4.4-11.0 [facility] Comment on above: Order Comment: 209.1 Performed By: #### L 500.2500, M100.678, L100.0500 #### [facility] [address] [place], [address] Comprehensive Metabolic Prof ilon 11-05-2024 Albumin [Mass/Vol] 3.9 g/dL Normal 3.4-4.8 [facility] Comment on above: Order Comment: 209.1 Performed By: #### L 500.2500, M100.678, L100.0500 #### [facility] [address] [place], [address] Albumin/Globulin [Mass ratio] 1.9 {ratio} Normal 0.9-2.4 [facility] Comment on above: Order Comment: 209.1 Performed By: #### L 500.2500, M100.678, L100.0500 #### [facility] [address] [place], [address] ALK PHOS 72 U/L Normal 35-104 [facility] Comment on above: Order Comment: 209.1 Performed By: #### L 500.2500, M100.678, L100.0500 #### [facility] [address] [place], [address] ALT [Catalytic activity/Vol] 15 U/L Normal <=34 [facility] Comment on above: Order Comment: 209.1 Performed By: #### L 500.2500, M100.678, L100.0500 #### [facility] [address] [place], [address] AST [Catalytic activity/Vol] 24 U/L Normal <=31 [facility] Comment on above: Order Comment: 209.1 Performed By: #### L 500.2500, M100.678, L100.0500 #### [facility] [address] [place], [address] Bilirubin [Mass/Vol] 1.06 mg/dL Normal 0.00-1.30 [facility] Comment on above: Order Comment: 209.1 Performed By: #### L 500.2500, M100.678, L100.0500 #### [facility] [address] [place], [address] BUN/CRE 22.6 RATIO High 10-20 [facility] Comment on above: Order Comment: 209.1 Performed By: #### L 500.2500, M100.678, L100.0500 #### [facility] [address] [place], [address] Calcium [Mass/Vol] 9.4 mg/dL Normal 7.6-11.0 [facility] Comment on above: Order Comment: 209.1 Performed By: #### L 500.2500, M100.678, L100.0500 #### [facility] [address] [place], [address] Chloride [Moles/Vol] 109 mmol/L High 98-108 [facility] Comment on above: Order Comment: 209.1 Performed By: #### L 500.2500, M100.678, L100.0500 #### [facility] [address] [place], [address] CO2 [Moles/Vol] 23.5 mmol/L Normal 21.0-32.0 [facility] Comment on above: Order Comment: 209.1 Performed By: #### L 500.2500, M100.678, L100.0500 #### [facility] [address] [place] [place], [address] Creatinine [Mass/Vol] 1.00 mg/dL Normal 0.70-1.20 [facility] Comment on above: Order Comment: 209.1 Performed By: #### L 500.2500, M100.678, L100.0500 #### [facility] [address] [place], [address] GAP 10 Normal 5-15 [facility] Comment on above: Order Comment: . Performed By: #### L 500.2500, M100.678, L100.0500 #### [facility] [address] [place], [address] GFR/1.73 sq M.predicted among non-blacks MDRD (S/P/Bld) [Vol rate/Area] 56 mL/min/{1.73_m2} Low >60 [facility] Comment on above: Order Comment: . Result Comment: mL/m in/1.73m2 CKD-EPI Creatinine Equation (2020) Performed By: #### L 500.2500, M100.678, L100.0500 #### [facility] [address] [place], [address] Globulin (S) [Mass/Vol] 2.1 g/dL Low 2.2-4.2 [facility] Comment on above: Order Comment: . Performed By: #### L 500.2500, M100.678, L100.0500 #### [facility] [address] [place], [address] Glucose [Mass/Vol] 100 mg/dL High 70-99 [facility] Comment on above: Order Comment: . Performed By: #### L 500.2500, M100.678, L100.0500 #### [facility] [address] [place], [address] Potassium [Moles/Vol] 4.0 mmol/L Normal 3.3-5.1 [facility] Comment on above: Order Comment: . Performed By: #### L 500.2500, M100.678, L100.0500 #### [facility] [address] [place] [place], [address] Sodium [Moles/Vol] 143 mmol/L Normal 133-145 [facility] Comment on above: Order Comment: 209.1 Performed By: #### L 500.2500, M100.678, L100.0500 #### [facility] [address] [place], [address] T PROT 6.0 g/dL Normal 5.9-8.4 [facility] Comment on above: Order Comment: .1 Performed By: #### L 500.2500, M100.678, L100.0500 #### [facility] [address] [place], [address] Urea nitrogen [Mass/Vol] 23 mg/dL High 4-19 [facility] Comment on above: Order Comment: .1 Performed By: #### L 500.2500, M100.678, L100.0500 #### [facility] [address] [place], [address] Thyroid Stim Hormone (TSH)on 11-05-2024 TSH 1.160 uIU/mL Normal 0.300-4.200 [facility] Comment on above: Order Comment: .1 Performed By: #### L 500.2500, M100.678, L100.0500 #### [facility] [address] [place], [address] TSH DL <= 0.005 mIU/L QnOrde red By: Dev Gutierrez on 09-24-2024 TSH Qn 6.110 uIU/mL High 0.300-4.200 [facility] Thyroid Stim Hormone (TSH)on 09-24-2024 TSH 6.110 uIU/mL High 0.300-4.200 [facility] Comment on above: Order Comment: .1 Performed By: #### M 100.2200, L100.0500, L400.0001, L500.2500 #### [facility] [address] [place], [address] Urine Cultureon 09-19-2024 URC Presumptive E. coli [place] Count >100,000 Presumptive E. coli: REACTION Ampicillin [...] TMP SMX Islt PARMINDER <=20 S Normal [facility] Comment on above: Performed By: #### M 100.2200, L100.0500, L400.0001, L500.2500 #### [facility] [address] [place], [address] Anion gap in Serum or Plasma Ordered By: Dev Gutierrez on 09-17-2024 Anion gap [Moles/Vol] 10 mmol/L -15 [facility] BUN/creatinine ratioOrdered By: Dev Gutierrez on 09-17-2024 Urea nitrogen/Creatinine [Mass ratio] 22.4 mg/mg High [facility]20 [facility] Basic Metabolic Profile (BMP )on 09-17-2024 BUN/CRE 22.4 RATIO High [address] [place] [address] Comment on above: Order Comment: 209.1 Performed By: #### M 100.2200, L100.0500, L400.0001, L500.2500 #### [facility] [address] [place], [address] Calcium [Mass/Vol] 9.6 mg/dL Normal 7.6-11.0 [facility] Comment on above: Order Comment: 209.1 Performed By: #### M 100.2200, L100.0500, L400.0001, L500.2500 #### [facility] [address] [place], [address] Chloride [Moles/Vol] 107 mmol/L Normal 98-108 [facility] Comment on above: Order Comment: 209.1 Performed By: #### M 100.2200, L100.0500, L400.0001, L500.2500 #### [facility] [address] [place], [address] CO2 [Moles/Vol] 24.3 mmol/L Normal 21.0-32.0 [facility] Comment on above: Order Comment: . Performed By: #### M 100.2200, L100.0500, L400.0001, L500.2500 #### [facility] [address] [place], [address] Creatinine [Mass/Vol] 1.14 mg/dL Normal 0.70-1.20 [facility] Comment on above: Order Comment: . Performed By: #### M 100.2200, L100.0500, L400.0001, L500.2500 #### [facility] [address] [place], [address] GAP 10 Normal 5-15 [facility] Comment on above: Order Comment: . Performed By: #### M 100.2200, L100.0500, L400.0001, L500.2500 #### [facility] [address] [place], [address] GFR/1.73 sq M.predicted among non-blacks MDRD (S/P/Bld) [Vol rate/Area] 48 mL/min/{1.73_m2} Low >60 [facility] Comment on above: Order Comment: .1 Result Comment: mL/m in/1.73m2 CKD-EPI Creatinine Equation (2020) Performed By: #### M 100.2200, L100.0500, L400.0001, L500.2500 #### [facility] [address] [place], [address] Glucose [Mass/Vol] 98 mg/dL Normal 70-99 [facility] Comment on above: Order Comment: .1 Performed By: #### M 100.2200, L100.0500, L400.0001, L500.2500 #### [facility] [address] [place], [address] Potassium [Moles/Vol] 4.3 mmol/L Normal 3.3-5.1 [facility] Comment on above: Order Comment: 209.1 Performed By: #### M 100.2200, L100.0500, L400.0001, L500.2500 #### [facility] [address] [place], [address] Sodium [Moles/Vol] 141 mmol/L Normal 133-145 [facility] Comment on above: Order Comment: .1 Performed By: #### M 100.2200, L100.0500, L400.0001, L500.2500 #### [facility] [address] [place], [address] Urea nitrogen [Mass/Vol] 26 mg/dL High 4-19 [facility] Comment on above: Order Comment: .1 Performed By: #### M 100.2200, L100.0500, L400.0001, L500.2500 #### [facility] [address] [place], [address] CBC-Complete Blood Cnt No Di ffon 09-17-2024 Erythrocyte distribution width (RBC) [Ratio] 13.2 % Normal 11.6-14.6 [facility] Comment on above: Order Comment: 209.1 Performed By: #### M 100.2200, L100.0500, L400.0001, L500.2500 #### [facility] [address] [place], [address] Hematocrit (Bld) [Volume fraction] 32.3 % Low 37-47 [facility] Comment on above: Order Comment: 209.1 Performed By: #### M 100.2200, L100.0500, L400.0001, L500.2500 #### [facility] [address] [place], [address] Hemoglobin (Bld) [Mass/Vol] 10.7 g/dL Low 12.0-15.0 [facility] Comment on above: Order Comment: . Performed By: #### M 100.2200, L100.0500, L400.0001, L500.2500 #### [facility] [address] [place], [address] MCH (RBC) [Entitic mass] 32.4 pg High 27.0-32.0 [facility] Comment on above: Order Comment: . Performed By: #### M 100.2200, L100.0500, L400.0001, L500.2500 #### [facility] [address] [place], [address] MCHC (RBC) [Mass/Vol] 33.1 g/dL Normal 32-36 [facility] Comment on above: Order Comment: . Performed By: #### M 100.2200, L100.0500, L400.0001, L500.2500 #### [facility] [address] [place], [address] MCV (RBC) [Entitic vol] 97.9 fL Normal 81-[address] [facility] Comment on above: Order Comment: . Performed By: #### M 100.2200, L100.0500, L400.0001, L500.2500 #### [facility] [address] [place], [address] Platelet mean volume (Bld) [Entitic vol] 10.1 fL Normal 6.2-12.0 [facility] Comment on above: Order Comment: . Performed By: #### M 100.2200, L100.0500, L400.0001, L500.2500 #### [facility] [address] [place], [address] Platelets (Bld) [#/Vol] 144 10*3/uL Low 150-450 [facility] Comment on above: Order Comment: . Performed By: #### M 100.2200, L100.0500, L400.0001, L500.2500 #### [facility] [address] [place], [address] RBC (Bld) [#/Vol] 3.30 10*6/uL Low 4.2-5.4 [facility] Comment on above: Order Comment: . Performed By: #### M 100.2200, L100.0500, L400.0001, L500.2500 #### [facility] [address] [place], [address] RDW SD 47.2 fl High 35.1-43.9 [facility] Comment on above: Order Comment: . Performed By: #### M 100.2200, L100.0500, L400.0001, L500.2500 #### [facility] [address] [place], [address] WBC (Bld) [#/Vol] 5.1 10*3/uL Normal 4.4-11.0 [facility] Comment on above: Order Comment: . Performed By: #### M 100.2200, L100.0500, L400.0001, L500.2500 #### [facility] [address] [place], [address] Carbon dioxide, total [Moles /volume] in Central venous bloodOrdered By: Dev Gutierrez on 09-17-2024 CO2 [Moles/Vol] 24.3 mmol/L 21.0-32.0 [facility] Chloride assayOrdered By: Morris on 09-17-2024 Chloride [Moles/Vol] 107 mmol/L 98-108 [facility] Erythrocyte distribution wid th ratioOrdered By: Dev Gutierrez on 09-17-2024 Erythrocyte distribution width (RBC) [Ratio] 13.2 % 11.6-14.6 [facility] Erythrocyte distribution wid th standard deviationOrdered By: Dev Gutierrez on 09-17-2024 Erythrocyte distribution width (RBC) [Ratio] 47.2 fl High 35.1-43.9 [facility] Glomerular filtration rate ( GFR) estimation/1.73 sq m using serum, plasma, or whole bOrdered By: Dev Gutierrez on 09-17-2024 GFR/1.73 sq M.predicted among non-blacks MDRD (S/P/Bld) [Vol rate/Area] 48 mL/min/{1.73_m2} Low >60 [facility] Comment on above: mL/min/1.73m2 CKD-EP I Creatinine Equation (2020) Hematocrit Auto (Bld) [Volum e fraction]Ordered By: Dev Gutierrez on 09-17-2024 Hematocrit (Bld) [Volume fraction] 32.3 % Low 37-47 [facility] Hemoglobin measurementOrdere d By: Dev Gutierrez on 09-17-2024 Hemoglobin (Bld) [Mass/Vol] 10.7 g/dL Low 12.0-15.0 [facility] MCV (mean corpuscular volume ) determinationOrdered By: Dev Gutierrez on 09-17-2024 MCV (RBC) [Entitic vol] 97.9 fL 81-[address] [facility] Mean corpuscular hemoglobin (MCH) determinationOrdered By: Dev Gutierrez on 09-17-2024 MCH (RBC) [Entitic mass] 32.4 pg High 27.0-32.0 [facility] Mean corpuscular hemoglobin concentration (MCHC) determinationOrdered By: Dev Gutierrez on 09-17-2024 MCHC (RBC) [Mass/Vol] 33.1 g/dL 32-36 [facility] Mean platelet volume determi nationOrdered By: Dev Gutierrez on 09-17-2024 Platelet mean volume (Bld) [Entitic vol] 10.1 fL 6.2-12.0 [facility] Platelet countOrdered By: Morris on 09-17-2024 Platelets (Bld) [#/Vol] 144 10*3/uL Low 150-450 [facility] Potassium measurement (mass/ volume)Ordered By: Dev Gutierrez on 09-17-2024 Potassium (Unsp spec) [Mass/Vol] 4.3 mmol/L 3.3-5.1 [facility] RBC Auto (Bld) [#/Vol]Ordere d By: Dev Gutierrez on 09-17-2024 RBC (Bld) [#/Vol] 3.30 10*6/uL Low 4.2-5.4 [facility] Serum creatinine measurement (mass/volume)Ordered By: Dev Gutierrez on 09-17-2024 Creatinine [Mass/Vol] 1.14 mg/dL 0.70-1.20 [facility] Serum glucose measurement (m ass/volume)Ordered By: Dev Gutierrez on 09-17-2024 Glucose [Mass/Vol] 98 mg/dL 70-99 [facility] Serum or plasma calcium maude urement (mass/volume)Ordered By: Dev Gutierrez on 09-17-2024 Calcium [Mass/Vol] 9.6 mg/dL 7.6-11.0 [facility] Serum or plasma urea nitroge n measurement (mass/volume)Ordered By: Dev Gutierrez on 09-17-2024 Urea nitrogen [Mass/Vol] 26 mg/dL High 4-19 [facility] Sodium levelOrdered By: Dev Gutierrez on 09-17-2024 Sodium [Moles/Vol] 141 mmol/L 133-145 [facility] Urinalysis, Completeon 09-17 BACTERIA 1+ /hpf Normal None Seen [facility] Comment on above: Order Comment: CLEAN CATCH Performed By: #### M 100.2200, L100.0500, L400.0001, L500.2500 #### [facility] [address] [place], [address] EPI,SQUAMOUS 0-5 SEEN Normal 5-10 [facility] Comment on above: Order Comment: CLEAN CATCH Performed By: #### M 100.2200, L100.0500, L400.0001, L500.2500 #### [facility] [address] [place], [address] WBC 25-50 SEEN Normal 0-5 [facility] Comment on above: Order Comment: CLEAN CATCH Performed By: #### M 100.2200, L100.0500, L400.0001, L500.2500 #### [facility] [address] [place], [address] Mucus Ql (Urine sed) 0 SEEN Normal [facility] Comment on above: Order Comment: CLEAN CATCH Performed By: #### M 100.2200, L100.0500, L400.0001, L500.2500 #### [facility] [address] [place], [address] RBC 0 SEEN Normal 0-5 [facility] Comment on above: Order Comment: CLEAN CATCH Performed By: #### M 100.2200, L100.0500, L400.0001, L500.2500 #### [facility] [address] [place], [address] White blood cell (WBC) count Ordered By: Dev Gutierrez on 09-17-2024 WBC (Bld) [#/Vol] 5.1 10*3/uL 4.4-11.0 [facility] Bilirubin Test strip Ql (U)O rdered By: Dev Gutierrez on 09-16-2024 Bilirubin Ql (U) Negative Negative [facility] Ketones Test strip Ql (U)Ord ered By: Dev Gutierrez on 09-16-2024 Ketones Ql (U) Negative Negative [facility] Microscopic analysis of urin e for red blood cells (RBC)Ordered By: Dev Gutierrez on 09-16-2024 Microscopic analysis of urine for red blood cells (RBC) 0 SEEN /hpf 0-5 [facility] Mucus LM Ql (Urine sed)Order ed By: Dev Gutierrez on 09-16-2024 Mucus Ql (Urine sed) 0 SEEN /hpf [facility] Nitrite Test strip Ql (U)Ord ered By: Dev Gutierrez on 09-16-2024 Nitrite Ql (U) Positive High Negative [facility] Protein Test strip Ql (U)Ord ered By: Dev Gutierrez on 09-16-2024 Protein Ql (U) 15 mg/dl High Negative [facility] Squamous epithelial cells de tection in urine sediment by light microscopyOrdered By: Dev Gutierrez on 09-16-2024 Epithelial cells.squamous LM Ql (Urine sed) 0-5 SEEN /hpf 5-10 [facility] Urine clarityOrdered By: Danielle Gutierrez on 09-16-2024 Clarity (U) Clear Clear [facility] Urine color determinationOrd ered By: Dev Gutierrez on 09-16-2024 Color (U) Yellow Yellow [facility] Urine cultureOrdered By: Danielle Gutierrez on 09-16-2024 Bacteria identified Cx Nom (U) Presumptive E. coli Abnormal [facility] Urine glucose detectionOrder ed By: Dev Gutierrez on 09-16-2024 Glucose Ql (U) Normal mg/dl Normal [facility] Urine leukocyte esterase det ection by dipstickOrdered By: Dev Gutierrez on 09-16-2024 Leukocyte esterase Test strip Ql (U) 500 /ul High Negative [facility] Urine pHOrdered By: Dev rodriguez on 09-16-2024 pH (U) 6.0 [pH] 5.0 - 8.0 [facility] Urine sediment bacteria coun t by microscopy (number/high power field)Ordered By: Dev Gutierrez on 09-16-2024 Bacteria LM.HPF (Urine sed) [#/Area] 1 /[HPF] None Seen [facility] Urine specific gravity measu rementOrdered By: Dev Gutierrez on 09-16-2024 Specific gravity (U) [Rel density] 1.010 1.002-1.030 [facility] Urine urobilinogen measureme ntOrdered By: Dev Gutierrez on 09-16-2024 Urobilinogen Ql (U) Normal mg/dl Normal [facility] White blood cell countOrdere d By: Dev Gutierrez on 09-16-2024 White blood cell count 25-50 SEEN /hpf 0-5 [facility] Serum or plasma uric acid me asurement (mass/volume)Ordered By: Dev Gutierrez on 09-11-2024 Urate [Mass/Vol] 3.0 mg/dL 2.6-6.0 [facility] Comment on above: The drugs N-Acetylcy steine and Metamizole may falsely depress this assay. Uric Acidon 09-11-2024 URIC 3.0 mg/dL Normal 2.6-6.0 [facility] Comment on above: Order Comment: 209.1 Result Comment: The drugs N-Acetylcysteine and Metamizole may falsely depress this assay. Performed By: #### M 100.2200, L100.0500, L400.0001, L500.2500 #### [facility] [address] [place], [address] Anion gap in Serum or Plasma Ordered By: Dev Gutierrez on 09-03-2024 Anion gap [Moles/Vol] 9 mmol/L -15 [facility] BUN/creatinine ratioOrdered By: Dev Gutierrez on 09-03-2024 Urea nitrogen/Creatinine [Mass ratio] 28.9 mg/mg High 10-20 [facility] Basic Metabolic Profile (BMP )on 09-03-2024 BUN/CRE 28.9 RATIO High - [facility] Comment on above: Order Comment: . Performed By: #### L 500.2500, M100.678, L100.0500 #### [facility] [address] [place] [place], [address] Calcium [Mass/Vol] 9.4 mg/dL Normal 7.6-11.0 [facility] Comment on above: Order Comment: 209. Performed By: #### L 500.2500, M100.678, L100.0500 #### [facility] [address] [place], [address] Chloride [Moles/Vol] 108 mmol/L Normal 98-108 [facility] Comment on above: Order Comment: . Performed By: #### L 500.2500, M100.678, L100.0500 #### [facility] [address] [place], [address] CO2 [Moles/Vol] 24.7 mmol/L Normal 21.0-32.0 [facility] Comment on above: Order Comment: . Performed By: #### L 500.2500, M100.678, L100.0500 #### [facility] [address] [place], [address] Creatinine [Mass/Vol] 1.08 mg/dL Normal 0.70-1.20 [facility] Comment on above: Order Comment: . Performed By: #### L 500.2500, M100.678, L100.0500 #### [facility] [address] [place], [address] GAP 9 Normal 5-15 [facility] Comment on above: Order Comment: . Performed By: #### L 500.2500, M100.678, L100.0500 #### [facility] [address] [place], [address] GFR/1.73 sq M.predicted among non-blacks MDRD (S/P/Bld) [Vol rate/Area] 51 mL/min/{1.73_m2} Low >60 [facility] Comment on above: Order Comment: . Result Comment: mL/m in/1.73m2 CKD-EPI Creatinine Equation (2020) Performed By: #### L 500.2500, M100.678, L100.0500 #### [facility] [address] [place], [address] Glucose [Mass/Vol] 109 mg/dL High 70-99 [facility] Comment on above: Order Comment: . Performed By: #### L 500.2500, M100.678, L100.0500 #### [facility] [address] [place], [address] Potassium [Moles/Vol] 4.3 mmol/L Normal 3.3-5.1 [facility] Comment on above: Order Comment: 209.1 Performed By: #### L 500.2500, M100.678, L100.0500 #### [facility] [address] [place], [address] Sodium [Moles/Vol] 142 mmol/L Normal 133-145 [facility] Comment on above: Order Comment: 209.1 Performed By: #### L 500.2500, M100.678, L100.0500 #### [facility] [address] [place], [address] Urea nitrogen [Mass/Vol] 31 mg/dL High 4-19 [facility] Comment on above: Order Comment: .1 Performed By: #### L 500.2500, M100.678, L100.0500 #### [facility] [address] [place], [address] CBC-Complete Blood Cnt No Di ffon 09-03-2024 Erythrocyte distribution width (RBC) [Ratio] 13.6 % Normal 11.6-14.6 [facility] Comment on above: Order Comment: .1 Performed By: #### L 500.2500, M100.678, L100.0500 #### [facility] [address] [place], [address] Hematocrit (Bld) [Volume fraction] 29.9 % Low 37-47 [facility] Comment on above: Order Comment: .1 Performed By: #### L 500.2500, M100.678, L100.0500 #### [facility] [address] [place], [address] Hemoglobin (Bld) [Mass/Vol] 9.5 g/dL Low 12.0-15.0 [facility] Comment on above: Order Comment: .1 Performed By: #### L 500.2500, M100.678, L100.0500 #### [facility] [address] [place], [address] MCH (RBC) [Entitic mass] 31.0 pg Normal 27.0-32.0 [facility] Comment on above: Order Comment: .1 Performed By: #### L 500.2500, M100.678, L100.0500 #### [facility] [address] [place], [address] MCHC (RBC) [Mass/Vol] 31.8 g/dL Low 32-36 [facility] Comment on above: Order Comment: .1 Performed By: #### L 500.2500, M100.678, L100.0500 #### [facility] [address] [place], [address] MCV (RBC) [Entitic vol] 97.7 fL Normal 81-[address] [facility] Comment on above: Order Comment: .1 Performed By: #### L 500.2500, M100.678, L100.0500 #### [facility] [address] [place], [address] Platelet mean volume (Bld) [Entitic vol] 10.3 fL Normal 6.2-12.0 [facility] Comment on above: Order Comment: . Performed By: #### L 500.2500, M100.678, L100.0500 #### [facility] [address] [place], [address] Platelets (Bld) [#/Vol] 145 10*3/uL Low 150-450 [facility] Comment on above: Order Comment: .1 Performed By: #### L 500.2500, M100.678, L100.0500 #### [facility] [address] [place], [address] RBC (Bld) [#/Vol] 3.06 10*6/uL Low 4.2-5.4 [facility] Comment on above: Order Comment: 209.1 Performed By: #### L 500.2500, M100.678, L100.0500 #### [facility] [address] [place], [address] RDW SD 48.5 fl High 35.1-43.9 [facility] Comment on above: Order Comment: . Performed By: #### L 500.2500, M100.678, L100.0500 #### [facility] [address] [place], [address] WBC (Bld) [#/Vol] 5.0 10*3/uL Normal 4.4-11.0 [facility] Comment on above: Order Comment: . Performed By: #### L 500.2500, M100.678, L100.0500 #### [facility] [address] [place], [address] Carbon dioxide, total [Moles /volume] in Central venous bloodOrdered By: Dev Gutierrez on 09-03-2024 CO2 [Moles/Vol] 24.7 mmol/L 21.0-32.0 [facility] Chloride assayOrdered By: Morris on 09-03-2024 Chloride [Moles/Vol] 108 mmol/L 98-108 [facility] Erythrocyte distribution wid th ratioOrdered By: Dev Gutierrez on 09-03-2024 Erythrocyte distribution width (RBC) [Ratio] 13.6 % 11.6-14.6 [facility] Erythrocyte distribution wid th standard deviationOrdered By: Dev Gutierrez on 09-03-2024 Erythrocyte distribution width (RBC) [Ratio] 48.5 fl High 35.1-43.9 [facility] Glomerular filtration rate ( GFR) estimation/1.73 sq m using serum, plasma, or whole bOrdered By: Dev Gutierrez on 09-03-2024 GFR/1.73 sq M.predicted among non-blacks MDRD (S/P/Bld) [Vol rate/Area] 51 mL/min/{1.73_m2} Low >60 [facility] Comment on above: mL/min/1.73m2 CKD-EP I Creatinine Equation (2020) Hematocrit Auto (Bld) [Volum e fraction]Ordered By: Dev Gutierrez on 09-03-2024 Hematocrit (Bld) [Volume fraction] 29.9 % Low 37-47 [facility] Hemoglobin measurementOrdere d By: Dev Gutierrez on 09-03-2024 Hemoglobin (Bld) [Mass/Vol] 9.5 g/dL Low 12.0-15.0 [facility] Influenza virus A and B and SARS-CoV-2 (COVID-19) and Respiratory syncytial virus RNAOrdered By: Dev Gutierrez on 09-03-2024 SARS-CoV-2 (COVID-19) RNA MARLO+probe Ql (Unsp spec) [facility] M100.678on 09-03-2024 M100.678 Pending SARS-CoV-2 (COVID 19) Negative INFLUENZA A Negative INFLUENZA B Negative RSV PCR Negative Normal [facility] Comment on above: Performed By: #### L 500.2500, M100.678, L100.0500 #### [facility] [address] [place] [address]. [place], [address] MCV (mean corpuscular volume ) determinationOrdered By: Dev Gutierrez on 09-03-2024 MCV (RBC) [Entitic vol] 97.7 fL 81-[address] [facility] Mean corpuscular hemoglobin (MCH) determinationOrdered By: Dev Gutierrez on 09-03-2024 MCH (RBC) [Entitic mass] 31.0 pg 27.0-32.0 [facility] Mean corpuscular hemoglobin concentration (MCHC) determinationOrdered By: Dev Gutierrez on 09-03-2024 MCHC (RBC) [Mass/Vol] 31.8 g/dL Low 32-36 [facility] Mean platelet volume determi nationOrdered By: Dev Gutierrez on 09-03-2024 Platelet mean volume (Bld) [Entitic vol] 10.3 fL 6.2-12.0 [facility] Platelet countOrdered By: Morris on 09-03-2024 Platelets (Bld) [#/Vol] 145 10*3/uL Low 150-450 [facility] Potassium measurement (mass/ volume)Ordered By: Dev Gutierrez on 09-03-2024 Potassium (Unsp spec) [Mass/Vol] 4.3 mmol/L 3.3-5.1 [facility] RBC Auto (Bld) [#/Vol]Ordere d By: Dev Gutierrez on 09-03-2024 RBC (Bld) [#/Vol] 3.06 10*6/uL Low 4.2-5.4 [facility] Serum creatinine measurement (mass/volume)Ordered By: Dev Gutierrez on 09-03-2024 Creatinine [Mass/Vol] 1.08 mg/dL 0.70-1.20 [facility] Serum glucose measurement (m ass/volume)Ordered By: Dev Gutierrez on 09-03-2024 Glucose [Mass/Vol] 109 mg/dL High 70-99 [facility] Serum or plasma calcium maude urement (mass/volume)Ordered By: Dev Gutierrez on 09-03-2024 Calcium [Mass/Vol] 9.4 mg/dL 7.6-11.0 [facility] Serum or plasma urea nitroge n measurement (mass/volume)Ordered By: Dev Gutierrez on 09-03-2024 Urea nitrogen [Mass/Vol] 31 mg/dL High 4-19 [facility] Sodium levelOrdered By: Dev Gutierrez on 09-03-2024 Sodium [Moles/Vol] 142 mmol/L 133-145 [facility] White blood cell (WBC) count Ordered By: Dev Gutierrez on 09-03-2024 WBC (Bld) [#/Vol] 5.0 10*3/uL 4.4-11.0 [facility] Anion gap in Serum or Plasma Ordered By: Jack Rutledge on 08-13-2024 Anion gap [Moles/Vol] 11 mmol/L 5-15 [facility] BUN/creatinine ratioOrdered By: Jack Rutledge on 08-13-2024 Urea nitrogen/Creatinine [Mass ratio] 26.2 mg/mg High 10-20 [facility] Bilirubin, totalOrdered By: Jack Rutledge on 08-13-2024 Bilirubin [Mass/Vol] 1.12 mg/dL 0.00-1.30 [facility] CBC-Complete Blood Cnt No Shawna glass 08-13-2024 Erythrocyte distribution width (RBC) [Ratio] 14.3 % Normal 11.6-14.6 [facility] Comment on above: Order Comment: 209.1 Performed By: #### M 100.2200, L100.0500, L400.0001, L500.2500 #### [facility] [address] [place], [address] Hematocrit (Bld) [Volume fraction] 29.7 % Low 37-47 [facility] Comment on above: Order Comment: . Performed By: #### M 100.2200, L100.0500, L400.0001, L500.2500 #### [facility] [address] [place], [address] Hemoglobin (Bld) [Mass/Vol] 9.9 g/dL Low 12.0-15.0 [facility] Comment on above: Order Comment: .1 Performed By: #### M 100.2200, L100.0500, L400.0001, L500.2500 #### [facility] [address] [place], [address] MCH (RBC) [Entitic mass] 32.7 pg High 27.0-32.0 [facility] Comment on above: Order Comment: 209.1 Performed By: #### M 100.2200, L100.0500, L400.0001, L500.2500 #### [facility] [address] [place], [address] MCHC (RBC) [Mass/Vol] 33.3 g/dL Normal 32-36 [facility] Comment on above: Order Comment: 209.1 Performed By: #### M 100.2200, L100.0500, L400.0001, L500.2500 #### [facility] [address] [place], [address] MCV (RBC) [Entitic vol] 98.0 fL Normal 81-[address] [facility] Comment on above: Order Comment: . Performed By: #### M 100.2200, L100.0500, L400.0001, L500.2500 #### [facility] [address] [place], [address] Platelet mean volume (Bld) [Entitic vol] 10.0 fL Normal 6.2-12.0 [facility] Comment on above: Order Comment: . Performed By: #### M 100.2200, L100.0500, L400.0001, L500.2500 #### [facility] [address] [place], [address] Platelets (Bld) [#/Vol] 149 10*3/uL Low 150-450 [facility] Comment on above: Order Comment: . Performed By: #### M 100.2200, L100.0500, L400.0001, L500.2500 #### [facility] [address] [place], [address] RBC (Bld) [#/Vol] 3.03 10*6/uL Low 4.2-5.4 [facility] Comment on above: Order Comment: . Performed By: #### M 100.2200, L100.0500, L400.0001, L500.2500 #### [facility] [address] [place], [address] RDW SD 50.4 fl High 35.1-43.9 [facility] Comment on above: Order Comment: . Performed By: #### M 100.2200, L100.0500, L400.0001, L500.2500 #### [facility] [address] [place], [address] WBC (Bld) [#/Vol] 4.7 10*3/uL Normal 4.4-11.0 [facility] Comment on above: Order Comment: . Performed By: #### M 100.2200, L100.0500, L400.0001, L500.2500 #### [facility] [address] [place], [address] Carbon dioxide, total [Moles /volume] in Central venous bloodOrdered By: Jack Rutledge on 08-13-2024 CO2 [Moles/Vol] 22.4 mmol/L 21.0-32.0 [facility] Chloride assayOrdered By: Shauna Rutledge on 08-13-2024 Chloride [Moles/Vol] 107 mmol/L 98-108 [facility] Comprehensive Metabolic Prof ilon 08-13-2024 Albumin [Mass/Vol] 3.8 g/dL Normal 3.4-4.8 [facility] Comment on above: Order Comment: . Performed By: #### M 100.2200, L100.0500, L400.0001, L500.2500 #### [facility] [address] [place], [address] Albumin/Globulin [Mass ratio] 1.6 {ratio} Normal 0.9-2.4 [facility] Comment on above: Order Comment: . Performed By: #### M 100.2200, L100.0500, L400.0001, L500.2500 #### [facility] [address] [place], [address] ALK PHOS 79 U/L Normal 35-104 [facility] Comment on above: Order Comment: . Performed By: #### M 100.2200, L100.0500, L400.0001, L500.2500 #### [facility] [address] [place], [address] ALT [Catalytic activity/Vol] 18 U/L Normal <=34 [facility] Comment on above: Order Comment: .1 Performed By: #### M 100.2200, L100.0500, L400.0001, L500.2500 #### [facility] [address] [place], [address] AST [Catalytic activity/Vol] 27 U/L Normal <=31 [facility] Comment on above: Order Comment: .1 Performed By: #### M 100.2200, L100.0500, L400.0001, L500.2500 #### [facility] [address] [place], [address] Bilirubin [Mass/Vol] 1.12 mg/dL Normal 0.00-1.30 [facility] Comment on above: Order Comment: . Performed By: #### M 100.2200, L100.0500, L400.0001, L500.2500 #### [facility] [address] [place], [address] BUN/CRE 26.2 RATIO High 10-20 [facility] Comment on above: Order Comment: . Performed By: #### M 100.2200, L100.0500, L400.0001, L500.2500 #### [facility] [address] [place], [address] Calcium [Mass/Vol] 9.3 mg/dL Normal 7.6-11.0 [facility] Comment on above: Order Comment: .1 Performed By: #### M 100.2200, L100.0500, L400.0001, L500.2500 #### [facility] [address] [place], [address] Chloride [Moles/Vol] 107 mmol/L Normal 98-108 [facility] Comment on above: Order Comment: .1 Performed By: #### M 100.2200, L100.0500, L400.0001, L500.2500 #### [facility] [address] [place], [address] CO2 [Moles/Vol] 22.4 mmol/L Normal 21.0-32.0 [facility] Comment on above: Order Comment: . Performed By: #### M 100.2200, L100.0500, L400.0001, L500.2500 #### [facility] [address] [place], [address] Creatinine [Mass/Vol] 1.06 mg/dL Normal 0.70-1.20 [facility] Comment on above: Order Comment: . Performed By: #### M 100.2200, L100.0500, L400.0001, L500.2500 #### [facility] [address] [place], [address] GAP 11 Normal 5-15 [facility] Comment on above: Order Comment: . Performed By: #### M 100.2200, L100.0500, L400.0001, L500.2500 #### [facility] [address] [place], [address] GFR/1.73 sq M.predicted among non-blacks MDRD (S/P/Bld) [Vol rate/Area] 52 mL/min/{1.73_m2} Low >60 [facility] Comment on above: Order Comment: Result Comment: mL/m in/1.73m2 CKD-EPI Creatinine Equation (2020) Performed By: #### M 100.2200, L100.0500, L400.0001, L500.2500 #### [facility] [address] [place], [address] Globulin (S) [Mass/Vol] 2.3 g/dL Normal 2.2-4.2 [facility] Comment on above: Order Comment: . Performed By: #### M 100.2200, L100.0500, L400.0001, L500.2500 #### [facility] [address] [place], [address] Glucose [Mass/Vol] 94 mg/dL Normal 70-99 [facility] Comment on above: Order Comment: 209.1 Performed By: #### M 100.2200, L100.0500, L400.0001, L500.2500 #### [facility] [address] [place], [address] Potassium [Moles/Vol] 4.1 mmol/L Normal 3.3-5.1 [facility] Comment on above: Order Comment: 209.1 Performed By: #### M 100.2200, L100.0500, L400.0001, L500.2500 #### [facility] [address] [place], [address] Sodium [Moles/Vol] 140 mmol/L Normal 133-145 [facility] Comment on above: Order Comment: . Performed By: #### M 100.2200, L100.0500, L400.0001, L500.2500 #### [facility] [address] [place], [address] T PROT 6.1 g/dL Normal 5.9-8.4 [facility] Comment on above: Order Comment: . Performed By: #### M 100.2200, L100.0500, L400.0001, L500.2500 #### [facility] [address] [place], [address] Urea nitrogen [Mass/Vol] 28 mg/dL High 4-19 [facility] Comment on above: Order Comment: 209.1 Performed By: #### M 100.2200, L100.0500, L400.0001, L500.2500 #### [facility] [address] [place], [address] Erythrocyte distribution wid th (RBC) [Ratio]Ordered By: Jack Rutledge on 08-13-2024 Erythrocyte distribution width (RBC) [Entitic vol] 50.4 fL High 35.1-43.9 [facility] Erythrocyte distribution wid th ratioOrdered By: Jack Rutledge on 08-13-2024 Erythrocyte distribution width (RBC) [Ratio] 14.3 % 11.6-14.6 [facility] Erythrocyte distribution wid th standard deviationOrdered By: Jack Rutledge on 08-13-2024 Erythrocyte distribution width (RBC) [Ratio] 50.4 fl High 35.1-43.9 [facility] GFR/1.73 sq M.predicted tyler g non-blacks MDRD (S/P/Bld) [Vol rate/Area]Ordered By: Jack Rutledge on 08-13-2024 Estimated GFR (MDRD) Non-Af Amer 52 Low >60 [facility] Comment on above: mL/min/1.73m2 CKD-EP I Creatinine Equation (2020) Glomerular filtration rate ( GFR) estimation/1.73 sq m using serum, plasma, or whole bOrdered By: Jack Rutledge on 08-13-2024 GFR/1.73 sq M.predicted among non-blacks MDRD (S/P/Bld) [Vol rate/Area] 52 mL/min/{1.73_m2} Low >60 [facility] Comment on above: mL/min/1.73m2 CKD-EP I Creatinine Equation (2020) Hematocrit Auto (Bld) [Volum e fraction]Ordered By: Jack Rutledge on 08-13-2024 Hematocrit (Bld) [Volume fraction] 29.7 % Low 37-47 [facility] Hemoglobin measurementOrdere d By: Jack Rutledge on 08-13-2024 Hemoglobin (Bld) [Mass/Vol] 9.9 g/dL Low 12.0-15.0 [facility] L503.0106on 08-13-2024 Cobalamin (Vitamin B12) [Mass/Vol] 744 pg/mL Normal 180-914 [facility] Comment on above: Order Comment: 209.1 Performed By: #### M 100.2200, L100.0500, L400.0001, L500.2500 #### [facility] [address] [place], [place], [id number] Laboratory - Chemistry and C hemistry - challengeOrdered By: Jack Rutledge on 08-13-2024 AST [Catalytic activity/Vol] 27 U/L <32 [facility] MCV (mean corpuscular volume ) determinationOrdered By: Jack Rutledge on 08-13-2024 MCV (RBC) [Entitic vol] 98.0 fL 81-[address] [facility] Mean corpuscular hemoglobin (MCH) determinationOrdered By: Jack Rutledge on 08-13-2024 MCH (RBC) [Entitic mass] 32.7 pg High 27.0-32.0 [facility] Mean corpuscular hemoglobin concentration (MCHC) determinationOrdered By: Jack Rutledge on 08-13-2024 MCHC (RBC) [Mass/Vol] 33.3 g/dL 32-36 [facility] Mean platelet volume determi nationOrdered By: Jack Rutledge on 08-13-2024 Platelet mean volume (Bld) [Entitic vol] 10.0 fL 6.2-12.0 [facility] Platelet countOrdered By: Shauna Rutledge on 08-13-2024 Platelets (Bld) [#/Vol] 149 10*3/uL Low 150-450 [facility] Potassium (Unsp spec) [Mass/ Vol]Ordered By: Jack Rutledge on 08-13-2024 Potassium [Moles/Vol] 4.1 mmol/L 3.3-5.1 [facility] Potassium measurement (mass/ volume)Ordered By: Jack Rutledge on 08-13-2024 Potassium (Unsp spec) [Mass/Vol] 4.1 mmol/L 3.3-5.1 [facility] RBC Auto (Bld) [#/Vol]Ordere d By: Jack Rutledge on 08-13-2024 RBC (Bld) [#/Vol] 3.03 10*6/uL Low 4.2-5.4 [facility] Serum creatinine measurement (mass/volume)Ordered By: Jack Rutledge on 08-13-2024 Creatinine [Mass/Vol] 1.06 mg/dL 0.70-1.20 [facility] Serum globulin measurementOr dered By: Jack Rutledge on 08-13-2024 Globulin (S) [Mass/Vol] 2.3 g/dL 2.2-4.[address] [facility] Serum glucose measurement (m ass/volume)Ordered By: Jack Rutledge on 08-13-2024 Glucose [Mass/Vol] 94 mg/dL 70-99 [facility] Serum or plasma alanine tovar otransferase (ALT) measurementOrdered By: Jack Rutledge on 08-13-2024 ALT [Catalytic activity/Vol] 18 U/L <35 [facility] Serum or plasma albumin maude urement (mass/volume)Ordered By: Jack Rutledge on 08-13-2024 Albumin [Mass/Vol] 3.8 g/dL 3.4-4.8 [facility] Serum or plasma albumin/glob ulin mass ratioOrdered By: Jack Rutledge on 08-13-2024 Albumin/Globulin [Mass ratio] 1.6 {ratio} 0.9-2.4 [facility] Serum or plasma alkaline nilton sphatase measurementOrdered By: Jack Rutledge on 08-13-2024 ALP [Catalytic activity/Vol] 79 U/L 35-104 [facility] Serum or plasma calcium maude urement (mass/volume)Ordered By: Jack Rutledge on 08-13-2024 Calcium [Mass/Vol] 9.3 mg/dL 7.6-11.0 [facility] Serum or plasma urea nitroge n measurement (mass/volume)Ordered By: Jack Rutledge on 08-13-2024 Urea nitrogen [Mass/Vol] 28 mg/dL High 4-19 [facility] Sodium levelOrdered By: Nando Rutledge on 08-13-2024 Sodium [Moles/Vol] 140 mmol/L 133-145 [facility] TSH DL <= 0.005 mIU/L QnOrde red By: Jack Rutledge on 08-13-2024 Thyroid Stimulating Hormone (TSH) 9.140 uIU/mL High 0.300-4.200 [facility] TSH Qn 9.140 uIU/mL High 0.300-4.200 [facility] Thyroid Stim Hormone (TSH)on 08-13-2024 TSH 9.140 uIU/mL High 0.300-4.200 [facility] Comment on above: Order Comment: 209.1 Performed By: #### M 100.2200, L100.0500, L400.0001, L500.2500 #### [facility] [address] [place], [address] Total proteinOrdered By: Balwnider Rutledge on 08-13-2024 Protein [Mass/Vol] 6.1 g/dL 5.9-8.4 [facility] Vitamin B12 ser/plasOrdered By: Jack Rutledge on 08-13-2024 Cobalamin (Vitamin B12) [Mass/Vol] 744 pg/mL 180-914 [facility] White blood cell (WBC) count Ordered By: Jack Rutledge on 08-13-2024 WBC (Bld) [#/Vol] 4.7 10*3/uL 4.4-11.0 [facility] Vitamin B12 ser/plasOrdered By: Dev Gutierrez on 07-30-2024 Cobalamin (Vitamin B12) [Mass/Vol] 802 pg/mL Normal 180-914 [facility] Comment on above: Order Comment: 209.1 Performed By: #### M 100.2200, L100.0500, L400.0001, L500.2500 #### [facility] [address] [place], [place], [id number] Urine Cultureon 07-26-2024 [facility] Presumptive E. coli Bloomingrose Count >100,000 Presumptive E. coli: REACTION Ampicillin [...] TMP SMX Islt PARMINDER <=20 S Normal [facility] Comment on above: Performed By: #### M 100.2200, L100.0500, L400.0001, L500.2500 #### [facility] [address] [place], [place], [address] Bilirubin Test strip Ql (U)O rdered By: Dev Gutierrez on 07-24-2024 Bilirubin Ql (U) Negative Negative [facility] Epithelial cells.squamous LM Ql (Urine sed)Ordered By: Dev Gutierrez on 07-24-2024 Epithelial cells.squamous LM.HPF (Urine sed) [#/Area] 0 /[HPF] 5-10 [facility] Glucose Ql (U)Ordered By: Morris on 07-24-2024 Urine Glucose (UA) Normal mg/dl Normal [facility] Ketones Test strip Ql (U)Ord ered By: Dev Gutierrez on 07-24-2024 Ketones Ql (U) Negative Negative [facility] Microscopic analysis of urin e for red blood cells (RBC)Ordered By: Dev Gutierrez on 07-24-2024 Microscopic analysis of urine for red blood cells (RBC) 0 SEEN /hpf 0-5 [facility] Urine RBC 0 SEEN /hpf 0-5 [facility] Mucus LM Ql (Urine sed)Order ed By: Dev Gutierrez on 07-24-2024 Mucus Ql (Urine sed) 0 SEEN /hpf [facility] Nitrite Test strip Ql (U)Ord ered By: Dev Gutierrez on 07-24-2024 Nitrite Ql (U) Positive High Negative [facility] Protein Test strip Ql (U)Ord ered By: Dev Gutierrez on 07-24-2024 Protein Ql (U) 30 mg/dl High Negative [facility] Squamous epithelial cells de tection in urine sediment by light microscopyOrdered By: Dev Gutierrez on 07-24-2024 Epithelial cells.squamous LM Ql (Urine sed) 0-5 SEEN /hpf 5-10 [facility] Urinalysis, Completeon 07-24 BACTERIA 4+ /hpf Normal None Seen [facility] Comment on above: Order Comment: CLEAN CATCH Performed By: #### M 100.2200, L100.0500, L400.0001, L500.2500 #### [facility] [address] [place], [place], [address] EPI,SQUAMOUS 0-5 SEEN Normal 5-10 [facility] Comment on above: Order Comment: CLEAN CATCH Performed By: #### M 100.2200, L100.0500, L400.0001, L500.2500 #### [facility] [address] [place], [address] RBC 0 SEEN Normal 0-5 [facility] Comment on above: Order Comment: CLEAN CATCH Performed By: #### M 100.2200, L100.0500, L400.0001, L500.2500 #### [facility] [address] [place], [address] WBC 25-50 SEEN Normal 0-5 [facility] Comment on above: Order Comment: CLEAN CATCH Performed By: #### M 100.2200, L100.0500, L400.0001, L500.2500 #### [facility] [address] [place], [address] Mucus Ql (Urine sed) 0 SEEN Normal [facility] Comment on above: Order Comment: CLEAN CATCH Performed By: #### M 100.2200, L100.0500, L400.0001, L500.2500 #### [facility] [address] [place], [address] Urine blood detectionOrdered By: Dev Gutierrez on 07-24-2024 Urine Occult Blood Negative Negative [facility] Urine clarityOrdered By: Danielle Gutierrez on 07-24-2024 Clarity (U) Clear Clear [facility] Urine color determinationOrd ered By: Dev Gutierrez on 07-24-2024 Color (U) Yellow Yellow [facility] Urine cultureOrdered By: Danielle Gutierrez on 07-24-2024 Bacteria identified Cx Nom (U) Presumptive E. coli Abnormal [facility] Urine glucose detectionOrder ed By: Dev Gutierrez on 07-24-2024 Glucose Ql (U) Normal mg/dl Normal [facility] Urine leukocyte esterase det ection by dipstickOrdered By: Dev Gutierrez on 07-24-2024 Leukocyte esterase Test strip Ql (U) 500 /ul High Negative [facility] Urine pHOrdered By: Dev rodriguez on 07-24-2024 pH (U) 6.0 [pH] 5.0 - 8.0 [facility] Urine sediment bacteria coun t by microscopy (number/high power field)Ordered By: Dev Gutierrez on 07-24-2024 Bacteria LM.HPF (Urine sed) [#/Area] 4 /[HPF] None Seen [facility] Urine specific gravity measu rementOrdered By: Dev Gutierrez on 07-24-2024 Specific gravity (U) [Rel density] 1.015 1.002-1.030 [facility] Urine urobilinogen measureme ntOrdered By: Dev Gutierrez on 07-24-2024 Urobilinogen Ql (U) Normal mg/dl Normal [facility] Urobilinogen Ql (U)Ordered B y: Dev Gutierrez on 07-24-2024 Urine Urobilinogen Normal mg/dl Normal [facility] White blood cell countOrdere d By: Dev Gutierrez on 07-24-2024 Urine WBC 25-50 SEEN /hpf 0-5 [facility] White blood cell count 25-50 SEEN /hpf 0-5 [facility] Urine Cultureon 07-14-2024 [facility] Presumptive E. coli [place]rose Count >100,000 Presumptive E. coli: REACTION Ampicillin [...] TMP SMX Islt PARMINDER <=20 S Normal [facility] Comment on above: Performed By: #### M 100.2200, L100.0500, L400.0001, L500.2500 #### [facility] [address] [place], [address] Urinalysis, Completeon 07-12 RBC 0 SEEN Normal 0-5 [facility] Comment on above: Order Comment: CLEAN CATCH Performed By: #### M 100.2200, L100.0500, L400.0001, L500.2500 #### [facility] [address] [place], [address] BUN/creatinine ratioOrdered By: Dev Gutierrez on 07-11-2024 Urea nitrogen/Creatinine [Mass ratio] 23.3 mg/mg High 10-20 [facility] Bilirubin Test strip Ql (U)O rdered By: Dev Gutierrez on 07-11-2024 Bilirubin Ql (U) Negative Negative [facility] Bilirubin, totalOrdered By: Dev Gutierrez on 07-11-2024 Bilirubin [Mass/Vol] 0.65 mg/dL 0.00-1.30 [facility] CBC-Complete Blood Cnt No Di ffon 07-11-2024 Erythrocyte distribution width (RBC) [Ratio] 14.6 % Normal 11.6-14.6 [facility] Comment on above: Order Comment: Performed By: #### M 100.2200, L100.0500, L400.0001, L500.2500 #### [facility] [address] [place], [address] Hematocrit (Bld) [Volume fraction] 29.6 % Low 37-47 [facility] Comment on above: Order Comment: Performed By: #### M 100.2200, L100.0500, L400.0001, L500.2500 #### [facility] [address] [place], [address] Hemoglobin (Bld) [Mass/Vol] 10.1 g/dL Low 12.0-15.0 [facility] Comment on above: Order Comment: Performed By: #### M 100.2200, L100.0500, L400.0001, L500.2500 #### [facility] [address] [place], [address] MCH (RBC) [Entitic mass] 32.7 pg High 27.0-32.0 [facility] Comment on above: Order Comment: Performed By: #### M 100.2200, L100.0500, L400.0001, L500.2500 #### [facility] [address] [place], [address] MCHC (RBC) [Mass/Vol] 34.1 g/dL Normal 32-36 [facility] Comment on above: Order Comment: Performed By: #### M 100.2200, L100.0500, L400.0001, L500.2500 #### [facility] [address] [place], [address] MCV (RBC) [Entitic vol] 95.8 fL Normal 81-[address] [facility] Comment on above: Order Comment: Performed By: #### M 100.2200, L100.0500, L400.0001, L500.2500 #### [facility] [address] [place], [address] Platelet mean volume (Bld) [Entitic vol] 9.6 fL Normal 6.2-12.0 [facility] Comment on above: Order Comment: Performed By: #### M 100.2200, L100.0500, L400.0001, L500.2500 #### [facility] [address] [place], [address] Platelets (Bld) [#/Vol] 176 10*3/uL Normal 150-450 [facility] Comment on above: Order Comment: Performed By: #### M 100.2200, L100.0500, L400.0001, L500.2500 #### [facility] [address] [place], [address] RBC (Bld) [#/Vol] 3.09 10*6/uL Low 4.2-5.4 [facility] Comment on above: Order Comment: Performed By: #### M 100.2200, L100.0500, L400.0001, L500.2500 #### [facility] [address] [place], [address] RDW SD 48.5 fl High 35.1-43.9 [facility] Comment on above: Order Comment: Performed By: #### M 100.2200, L100.0500, L400.0001, L500.2500 #### [facility] [address] [place], [address] WBC (Bld) [#/Vol] 7.2 10*3/uL Normal 4.4-11.0 [facility] Comment on above: Order Comment: Performed By: #### M 100.2200, L100.0500, L400.0001, L500.2500 #### [facility] [address] [place], [address] Carbon dioxide measurementOr dered By: Dev Gutierrez on 07-11-2024 CO2 [Moles/Vol] 21.1 mmol/L Low 22.0-29.0 [facility] Chloride measurementOrdered By: Dev Gutierrez on 07-11-2024 Chloride [Moles/Vol] 109 mmol/L High 96-108 [facility] Comprehensive Metabolic Prof ilon 07-11-2024 Albumin [Mass/Vol] 3.7 g/dL Normal 3.4-4.8 [facility] Comment on above: Order Comment: Performed By: #### M 100.2200, L100.0500, L400.0001, L500.2500 #### [facility] [address] [place], [address] Albumin/Globulin [Mass ratio] 1.8 {ratio} Normal 0.9-2.4 [facility] Comment on above: Order Comment: Performed By: #### M 100.2200, L100.0500, L400.0001, L500.2500 #### [facility] [address] [place], [address] ALK PHOS 82 U/L Normal 35-104 [facility] Comment on above: Order Comment: Performed By: #### M 100.2200, L100.0500, L400.0001, L500.2500 #### [facility] [address] [place], [address] ALT [Catalytic activity/Vol] 13 U/L Normal <=34 [facility] Comment on above: Order Comment: Performed By: #### M 100.2200, L100.0500, L400.0001, L500.2500 #### [facility] [address] [place], [address] Anion gap [Moles/Vol] 11 mmol/L Normal 5-15 [facility] Comment on above: Order Comment: Performed By: #### M 100.2200, L100.0500, L400.0001, L500.2500 #### [facility] [address] [place], [address] AST [Catalytic activity/Vol] 21 U/L Normal <=31 [facility] Comment on above: Order Comment: Performed By: #### M 100.2200, L100.0500, L400.0001, L500.2500 #### [facility] [address] [place], [address] Bilirubin [Mass/Vol] 0.65 mg/dL Normal 0.00-1.30 [facility] Comment on above: Order Comment: Performed By: #### M 100.2200, L100.0500, L400.0001, L500.2500 #### [facility] [address] [place], [address] BUN/CRE 23.3 RATIO High 10-20 [facility] Comment on above: Order Comment: Performed By: #### M 100.2200, L100.0500, L400.0001, L500.2500 #### [facility] [address] [place], [address] Calcium [Mass/Vol] 8.9 mg/dL Normal 7.6-11.0 [facility] Comment on above: Order Comment: Performed By: #### M 100.2200, L100.0500, L400.0001, L500.2500 #### [facility] [address] [place], [address] Chloride [Moles/Vol] 109 mmol/L High 96-108 [facility] Comment on above: Order Comment: Performed By: #### M 100.2200, L100.0500, L400.0001, L500.2500 #### [facility] [address] [place], [address] CO2 [Moles/Vol] 21.1 mmol/L Low 22.0-29.0 [facility] Comment on above: Order Comment: Performed By: #### M 100.2200, L100.0500, L400.0001, L500.2500 #### [facility] [address] [place], [address] Creatinine [Mass/Vol] 0.9 mg/dL Normal 0.6-1.0 [facility] Comment on above: Order Comment: Performed By: #### M 100.2200, L100.0500, L400.0001, L500.2500 #### [facility] [address] [place], [address] GFR/1.73 sq M.predicted among non-blacks MDRD (S/P/Bld) [Vol rate/Area] 61 mL/min/{1.73_m2} Normal >60 [facility] Comment on above: Order Comment: Result Comment: mL/m in/1.73m2 CKD-EPI Creatinine Equation (2020) Performed By: #### M 100.2200, L100.0500, L400.0001, L500.2500 #### [facility] [address] [place], [address] Globulin (S) [Mass/Vol] 2.1 g/dL Low 2.2-4.2 [facility] Comment on above: Order Comment: Performed By: #### M 100.2200, L100.0500, L400.0001, L500.2500 #### [facility] [address] [place], [address] Glucose [Mass/Vol] 96 mg/dL Normal 70-99 [facility] Comment on above: Order Comment: Performed By: #### M 100.2200, L100.0500, L400.0001, L500.2500 #### [facility] [address] [place], [address] Potassium [Moles/Vol] 3.7 mmol/L Normal 3.3-5.1 [facility] Comment on above: Order Comment: Performed By: #### M 100.2200, L100.0500, L400.0001, L500.2500 #### [facility] [address] [place], [address] Sodium [Moles/Vol] 141 mmol/L Normal 133-145 [facility] Comment on above: Order Comment: Performed By: #### M 100.2200, L100.0500, L400.0001, L500.2500 #### [facility] [address] [place] [place], [address] T PROT 5.7 g/dL Low 5.9-8.4 [facility] Comment on above: Order Comment: Performed By: #### M 100.2200, L100.0500, L400.0001, L500.2500 #### [facility] [address] [place], [address] Urea nitrogen [Mass/Vol] 22 mg/dL High 4-19 [facility] Comment on above: Order Comment: Performed By: #### M 100.2200, L100.0500, L400.0001, L500.2500 #### [facility] [address] [place], [address] Creatinine [Moles/Vol]Ordere d By: Dev Gutierrez on 07-11-2024 Creatinine [Mass/Vol] 0.9 mg/dL 0.6-1.0 [facility] Epithelial cells.squamous LM Ql (Urine sed)Ordered By: Dev Gutierrez on 07-11-2024 Epithelial cells.squamous LM.HPF (Urine sed) [#/Area] 0 /[HPF] 5-10 [facility] Erythrocyte distribution wid th (RBC) [Ratio]Ordered By: Dev Gutierrez on 07-11-2024 Erythrocyte distribution width (RBC) [Entitic vol] 48.5 fL High 35.1-43.9 [facility] Erythrocyte distribution wid th ratioOrdered By: Dev Gutierrez on 07-11-2024 Erythrocyte distribution width (RBC) [Ratio] 14.6 % 11.6-14.6 [facility] Erythrocyte distribution wid th standard deviationOrdered By: Dev Gutierrez on 07-11-2024 Erythrocyte distribution width (RBC) [Ratio] 48.5 fl High 35.1-43.9 [facility] GFR/1.73 sq M.predicted tyler g non-blacks MDRD (S/P/Bld) [Vol rate/Area]Ordered By: Dev Gutierrez on 07-11-2024 Estimated GFR (MDRD) Non-Af Amer 61 >60 [facility] Comment on above: mL/min/1.73m2 CKD-EP I Creatinine Equation (2020) Glomerular filtration rate ( GFR) estimation/1.73 sq m using serum, plasma, or whole bOrdered By: Dev Gutierrez on 07-11-2024 GFR/1.73 sq M.predicted among non-blacks MDRD (S/P/Bld) [Vol rate/Area] 61 mL/min/{1.73_m2} >60 [facility] Comment on above: mL/min/1.73m2 CKD-EP I Creatinine Equation (2020) Glucose Ql (U)Ordered By: Morris on 07-11-2024 Urine Glucose (UA) Normal mg/dl Normal [facility] Hematocrit Auto (Bld) [Volum e fraction]Ordered By: Dev Gutierrez on 07-11-2024 Hematocrit (Bld) [Volume fraction] 29.6 % Low 37-47 [facility] Hemoglobin measurementOrdere d By: Dev Gutierrez on 07-11-2024 Hemoglobin (Bld) [Mass/Vol] 10.1 g/dL Low 12.0-15.0 [facility] Ketones Test strip Ql (U)Ord ered By: Dev Gutierrez on 07-11-2024 Ketones Ql (U) Negative Negative [facility] Laboratory - Chemistry and C hemistry - challengeOrdered By: Dev Gutierrez on 07-11-2024 AST [Catalytic activity/Vol] 21 U/L <32 [facility] MCV (mean corpuscular volume ) determinationOrdered By: Dev Gutierrez on 07-11-2024 MCV (RBC) [Entitic vol] 95.8 fL 81-[address] [facility] Mean corpuscular hemoglobin (MCH) determinationOrdered By: Dev Gutierrez on 07-11-2024 MCH (RBC) [Entitic mass] 32.7 pg High 27.0-32.0 [facility] Mean corpuscular hemoglobin concentration (MCHC) determinationOrdered By: Dev Gutierrez on 07-11-2024 MCHC (RBC) [Mass/Vol] 34.1 g/dL 32-36 [facility] Mean platelet volume determi nationOrdered By: Dev Gutierrez on 07-11-2024 Platelet mean volume (Bld) [Entitic vol] 9.6 fL 6.2-12.0 [facility] Microscopic analysis of urin e for red blood cells (RBC)Ordered By: Dev Gutierrez on 07-11-2024 Microscopic analysis of urine for red blood cells (RBC) 0 SEEN /hpf 0-5 [facility] Urine RBC 0 SEEN /hpf 0-5 [facility] Mucus LM Ql (Urine sed)Order ed By: Dev Gutierrez on 07-11-2024 Mucus Ql (Urine sed) 0 SEEN /hpf [facility] Nitrite Test strip Ql (U)Ord ered By: Dev Gutierrez on 07-11-2024 Nitrite Ql (U) Positive High Negative [facility] Platelet countOrdered By: Morris on 07-11-2024 Platelets (Bld) [#/Vol] 176 10*3/uL 150-450 [facility] Protein Test strip Ql (U)Ord ered By: Dev Gutierrez on 07-11-2024 Protein Ql (U) 15 mg/dl High Negative [facility] RBC Auto (Bld) [#/Vol]Ordere d By: Dev Gutierrez on 07-11-2024 RBC (Bld) [#/Vol] 3.09 10*6/uL Low 4.2-5.4 [facility] Serum globulin measurementOr dered By: Dev Gutierrez on 07-11-2024 Globulin (S) [Mass/Vol] 2.1 g/dL Low 2.2-4.[address] [facility] Serum glucose measurement (m ass/volume)Ordered By: Dev Gutierrez on 07-11-2024 Glucose [Mass/Vol] 96 mg/dL 70-99 [facility] Serum or plasma alanine tovar otransferase (ALT) measurementOrdered By: Dev Gutierrez on 07-11-2024 ALT [Catalytic activity/Vol] 13 U/L <35 [facility] Serum or plasma albumin maude urement (mass/volume)Ordered By: Dev Gutierrez on 07-11-2024 Albumin [Mass/Vol] 3.7 g/dL 3.4-4.8 [facility] Serum or plasma albumin/glob ulin mass ratioOrdered By: Dev Gutierrez on 07-11-2024 Albumin/Globulin [Mass ratio] 1.8 {ratio} 0.9-2.4 [facility] Serum or plasma alkaline nilton sphatase measurementOrdered By: Dev Gutierrez on 07-11-2024 ALP [Catalytic activity/Vol] 82 U/L 35-104 [facility] Serum or plasma anion gap de termination (moles/volume)Ordered By: Dev Gutierrez on 07-11-2024 Anion gap [Moles/Vol] 11 mmol/L 5-15 [facility] Serum or plasma calcium maude urement (mass/volume)Ordered By: Dev Gutierrez on 07-11-2024 Calcium [Mass/Vol] 8.9 mg/dL 7.6-11.0 [facility] Serum or plasma creatinine m easurement (moles/volume)Ordered By: Dev Gutierrez on 07-11-2024 Creatinine [Moles/Vol] 0.9 mg/dL 0.6-1.0 [facility] Serum or plasma potassium me asurementOrdered By: Dev Gutierrez on 07-11-2024 Potassium [Moles/Vol] 3.7 mmol/L 3.3-5.1 [facility] Serum or plasma sodium measu rement (moles/volume)Ordered By: Dev Gutierrez on 07-11-2024 Sodium [Moles/Vol] 141 mmol/L 133-145 [facility] Serum or plasma urea nitroge n measurement (mass/volume)Ordered By: Dev Gutierrez on 07-11-2024 Urea nitrogen [Mass/Vol] 22 mg/dL High 4-19 [facility] Squamous epithelial cells de tection in urine sediment by light microscopyOrdered By: Dev Gutierrez on 07-11-2024 Epithelial cells.squamous LM Ql (Urine sed) 0 SEEN /hpf 5-10 [facility] Total proteinOrdered By: Danielle Gutierrez on 07-11-2024 Protein [Mass/Vol] 5.7 g/dL Low 5.9-8.4 [facility] Urine blood detectionOrdered By: Dev Gutierrez on 07-11-2024 Urine Occult Blood Negative Negative [facility] Urine clarityOrdered By: Danielle Gutierrez on 07-11-2024 Clarity (U) Sl. Cloudy Clear [facility] Urine color determinationOrd ered By: Dev Gutierrez on 07-11-2024 Color (U) Yellow Yellow [facility] Urine cultureOrdered By: Danielle Gutierrez on 07-11-2024 Bacteria identified Cx Nom (U) Presumptive E. coli Abnormal [facility] Urine glucose detectionOrder ed By: Dev Gutierrez on 07-11-2024 Glucose Ql (U) Normal mg/dl Normal [facility] Urine leukocyte esterase det ection by dipstickOrdered By: Dev Gutierrez on 07-11-2024 Leukocyte esterase Test strip Ql (U) 100 /ul High Negative [facility] Urine pHOrdered By: Dev rodriguez on 07-11-2024 pH (U) 6.5 [pH] 5.0 - 8.0 [facility] Urine sediment bacteria coun t by microscopy (number/high power field)Ordered By: Dev Gutierrez on 07-11-2024 Bacteria LM.HPF (Urine sed) [#/Area] 1 /[HPF] None Seen [facility] Urine specific gravity measu rementOrdered By: Dev Gutierrez on 07-11-2024 Specific gravity (U) [Rel density] 1.010 1.002-1.030 [facility] Urine urobilinogen measureme ntOrdered By: Dev Gutierrez on 07-11-2024 Urobilinogen Ql (U) Normal mg/dl Normal [facility] Urobilinogen Ql (U)Ordered B y: Dev Gutierrez on 07-11-2024 Urine Urobilinogen Normal mg/dl Normal [facility] White blood cell (WBC) count Ordered By: Dev Gutierrez on 07-11-2024 WBC (Bld) [#/Vol] 7.2 10*3/uL 4.4-11.0 [facility] White blood cell countOrdere d By: Dev Gutierrez on 07-11-2024 Urine WBC 5-10 SEEN /hpf 0-5 [facility] White blood cell count 5-10 SEEN /hpf 0-5 [facility] Basic Metabolic Profile (BMP )on 07-06-2024 BUN/CRE 18.7 RATIO Normal 10-20 [facility] Comment on above: Order Comment: 209.1 Performed By: #### M 100.2200, L100.0500, L400.0001, L500.2500 #### [facility] [address] [place], [address] CA,Total 9.3 mg/dL Normal 8.5-10.1 [facility] Comment on above: Order Comment: . Performed By: #### M 100.2200, L100.0500, L400.0001, L500.2500 #### [facility] [address] [place], [address] EST GFR - AA 63 mL/min Normal >60 [facility] Comment on above: Order Comment: . Result Comment: Afri can [place] GFR Calc Performed By: #### M 100.2200, L100.0500, L400.0001, L500.2500 #### [facility] [address] [place], [address] GAP 5 Normal 5-15 [facility] Comment on above: Order Comment: . Performed By: #### M 100.2200, L100.0500, L400.0001, L500.2500 #### [facility] [address] [place], [address] Blood urea nitrogen (BUN)/cr eatinine ratioOrdered By: Dev Gutierrez on 07-06-2024 Urea nitrogen/Creatinine [Mass ratio] 18.7 mg/mg 10-20 [facility] Carbon dioxide measurementOr dered By: Dev Gutierrez on 07-06-2024 CO2 [Moles/Vol] 23.0 mmol/L Normal 21.0-32.0 [facility] Comment on above: Order Comment: . Performed By: #### M 100.2200, L100.0500, L400.0001, L500.2500 #### [facility] [address] [place], [address] Chloride measurementOrdered By: Dev Gutierrez on 07-06-2024 Chloride [Moles/Vol] 114 mmol/L High 98-107 [facility] Comment on above: Order Comment: .1 Performed By: #### M 100.2200, L100.0500, L400.0001, L500.2500 #### [facility] [address] [place], [address] Estimated glomerular filtrat ion rate (GFR) AmericanOrdered By: Dev Gutierrez on 07-06-2024 Estimated GFR (MDRD) Amer 63 mL/min >60 [facility] Comment on above: GFR Calc Glomerular filtration rate ( GFR) estimationOrdered By: Dev Gutierrez on 07-06-2024 Estimated GFR (MDRD) Non-Af Amer 52 mL/min Low >60 [facility] Comment on above: Non- GFR Calc GFR/1.73 sq M.predicted among non-blacks MDRD (S/P/Bld) [Vol rate/Area] 52 mL/min/{1.73_m2} Low >60 [facility] Comment on above: Non- GFR Calc Order Comment: . Result Comment: Non- GFR Calc Performed By: #### M 100.2200, L100.0500, L400.0001, L500.2500 #### [facility] [address] [facility] [place], [address] Glucose measurementOrdered B y: Dev Gutierrez on 07-06-2024 Glucose [Mass/Vol] 112 mg/dL High 74-106 [facility] Comment on above: Fasting Glucose resu lt from 100 to 125 mg/dL suggests IMPAIRED HOMEOSTASIS per A.D.A. criteria. Order Comment: .1 Result Comment: Fast ing Glucose result from 100 to 125 mg/dL suggests IMPAIRED HOMEOSTASIS per A.D.A. criteria. Performed By: #### M 100.2200, L100.0500, L400.0001, L500.2500 #### [facility] [address] [place], [address] Potassium measurementOrdered By: Dev Gutierrez on 07-06-2024 Potassium [Moles/Vol] 3.8 mmol/L Normal 3.5-5.1 [facility] Comment on above: Order Comment: 209.1 Performed By: #### M 100.2200, L100.0500, L400.0001, L500.2500 #### [facility] [address] [place], [address] Serum anion gap measurementO rdered By: Dev Gutierrez on 07-06-2024 Anion gap [Moles/Vol] 5 mmol/L 5-15 [facility] Serum or plasma calcium maude urement (mass/volume)Ordered By: Dev Gutierrez on 07-06-2024 Calcium [Mass/Vol] 9.3 mg/dL 8.5-10.1 [facility] Serum or plasma creatinine m easurement (mass/volume)Ordered By: Dev Gutierrez on 07-06-2024 Creatinine [Mass/Vol] 1.07 mg/dL High 0.55-1.02 [facility] Comment on above: The validity of the calculated GFR & GFRAA in patients over 70 years has not been determined. Clinical correlation is essential. Order Comment: 209.1 Result Comment: The validity of the calculated GFR GFRAA in patients over 70 years has not been determined. Clinical correlation is essential. Performed By: #### M 100.2200, L100.0500, L400.0001, L500.2500 #### [facility] [address] [place], [address] Serum or plasma urea nitroge n measurement (mass/volume)Ordered By: Dev Gutierrez on 07-06-2024 Urea nitrogen [Mass/Vol] 20 mg/dL High 7-18 [facility] Comment on above: Order Comment: 209.1 Performed By: #### M 100.2200, L100.0500, L400.0001, L500.2500 #### [facility] [address] [place], [address] Sodium levelOrdered By: Dev Gutierrez on 07-06-2024 Sodium [Moles/Vol] 142 mmol/L Normal 136-145 [facility] Comment on above: Order Comment: 209.1 Performed By: #### M 100.2200, L100.0500, L400.0001, L500.2500 #### [facility] [address] [place], [address] Albumin to globulin ratioOrd ered By: Dev Gutierrez on 07-02-2024 Albumin/Globulin [Mass ratio] 1.0 {ratio} 0.9-2.4 [facility] Bilirubin, totalOrdered By: Dev Gutierrez on 07-02-2024 Bilirubin [Mass/Vol] 1.20 mg/dL High 0.20-1.00 [facility] Comment on above: For patients on eltr ombopag therapy, use of Dimension [place] TBIL is not recommended. Blood urea nitrogen (BUN)/cr eatinine ratioOrdered By: Dev Gutierrez on 07-02-2024 Urea nitrogen/Creatinine [Mass ratio] 21.5 mg/mg High 10-20 [facility] CBC-Complete Blood Cnt No Di ffon 07-02-2024 Erythrocyte distribution width (RBC) [Ratio] 14.4 % Normal 11.6-14.6 [facility] Comment on above: Order Comment: Performed By: #### L [id number], L100.0500, L500.4050, L503.0105 #### [facility] [address] [place], [address] Hematocrit (Bld) [Volume fraction] 31.5 % Low 37-47 [facility] Comment on above: Order Comment: Performed By: #### L [id number], L100.0500, L500.4050, L503.0105 #### [facility] [address] [place], [address] Hemoglobin (Bld) [Mass/Vol] 9.9 g/dL Low 12.0-15.0 [facility] Comment on above: Order Comment: Performed By: #### L [id number], L100.0500, L500.4050, L503.0105 #### [facility] [address] [place], [address] MCH (RBC) [Entitic mass] 30.2 pg Normal 27.0-32.0 [facility] Comment on above: Order Comment: Performed By: #### L [id number], L100.0500, L500.4050, L503.0105 #### [facility] [address] [place], [address] MCHC (RBC) [Mass/Vol] 31.4 g/dL Low 32-36 [facility] Comment on above: Order Comment: Performed By: #### L [id number], L100.0500, L500.4050, L503.0105 #### [facility] [address] [place], [address] MCV (RBC) [Entitic vol] 96.0 fL Normal 81-99 [facility] Comment on above: Order Comment: Performed By: #### L [id number], L100.0500, L500.4050, L503.0105 #### [facility] [address] [place], [address] Platelet mean volume (Bld) [Entitic vol] 10.2 fL Normal 6.2-12.0 [facility] Comment on above: Order Comment: Performed By: #### L [id number], L100.0500, L500.4050, L503.0105 #### [facility] [address] [place], [address] Platelets (Bld) [#/Vol] 143 10*3/uL Low 150-450 [facility] Comment on above: Order Comment: Performed By: #### L [id number], L100.0500, L500.4050, L503.0105 #### [facility] [address] [place], [address] RBC (Bld) [#/Vol] 3.28 10*6/uL Low 4.2-5.4 [facility] Comment on above: Order Comment: Performed By: #### L [id number], L100.0500, L500.4050, L503.0105 #### [facility] [address] [place], [address] RDW SD 50.4 fl High 35.1-43.9 [facility] Comment on above: Order Comment: Performed By: #### L 501.9520, L100.0500, L500.4050, L503.0105 #### [facility] [address] [place], [address] WBC (Bld) [#/Vol] 4.8 10*3/uL Normal 4.4-11.0 [facility] Comment on above: Order Comment: Performed By: #### L [id number], L100.0500, L500.4050, L503.0105 #### [facility] [address] [place], [address] Carbon dioxide measurementOr dered By: Dev Gutierrez on 07-02-2024 CO2 [Moles/Vol] 19.0 mmol/L Low 21.0-32.0 [facility] Chloride measurementOrdered By: Dev Gutierrez on 07-02-2024 Chloride [Moles/Vol] 110 mmol/L High 98-107 [facility] Comprehensive Metabolic Prof ilon 07-02-2024 Albumin [Mass/Vol] 3.1 g/dL Low 3.2-5.0 [facility] Comment on above: Order Comment: Performed By: #### L [id number], L100.0500, L500.4050, L503.0105 #### [facility] [address] [place], [address] Albumin/Globulin [Mass ratio] 1.0 {ratio} Normal 0.9-2.4 [facility] Comment on above: Order Comment: Performed By: #### L [id number], L100.0500, L500.4050, L503.0105 #### [facility] [address] [place] [place], [address] ALK P 68 U/L Normal 45-117 [facility] Comment on above: Order Comment: Performed By: #### L [id number], L100.0500, L500.4050, L503.0105 #### [facility] [address] [place], [address] ALT [Catalytic activity/Vol] 20 U/L Normal 13-56 [facility] Comment on above: Order Comment: Performed By: #### L [id number], L100.0500, L500.4050, L503.0105 #### [facility] [address] [place], [address] AST [Catalytic activity/Vol] 22 U/L Normal 15-37 [facility] Comment on above: Order Comment: Performed By: #### L [id number], L100.0500, L500.4050, L503.0105 #### [facility] [address] [place], [address] Bilirubin [Mass/Vol] 1.20 mg/dL High 0.20-1.00 [facility] Comment on above: Order Comment: Result Comment: For patients on eltrombopag therapy, use of Dimension [place] TBIL is not recommended. Performed By: #### L [id number], L100.0500, L500.4050, L503.0105 #### [facility] [address] [place], [address] BUN/CRE 21.5 RATIO High 10-20 [facility] Comment on above: Order Comment: Performed By: #### L [id number], L100.0500, L500.4050, L503.0105 #### [facility] [address] [place], [address] CA,Total 8.6 mg/dL Normal 8.5-10.1 [facility] Comment on above: Order Comment: Performed By: #### L [id number], L100.0500, L500.4050, L503.0105 #### [facility] [address] [place] [place], [address] Chloride [Moles/Vol] 110 mmol/L High 98-107 [facility] Comment on above: Order Comment: Performed By: #### L [id number], L100.0500, L500.4050, L503.0105 #### [facility] [address] [place], [address] CO2 [Moles/Vol] 19.0 mmol/L Low 21.0-32.0 [facility] Comment on above: Order Comment: Performed By: #### L [id number], L100.0500, L500.4050, L503.0105 #### [facility] [address] [place], [address] Creatinine [Mass/Vol] 1.44 mg/dL High 0.55-1.02 [facility] Comment on above: Order Comment: Result Comment: The validity of the calculated GFR GFRAA in patients over 70 years has not been determined. Clinical correlation is essential. Performed By: #### L 501.9520, L100.0500, L500.4050, L503.0105 #### [facility] [address] [place], [address] EST GFR - AA 45 mL/min Low >60 [facility] Comment on above: Order Comment: Result Comment: Afri can [place] GFR Calc Performed By: #### L [id number], L100.0500, L500.4050, L503.0105 #### [facility] [address] [place], [address] GAP 11 Normal 5-15 [facility] Comment on above: Order Comment: Performed By: #### L [id number], L100.0500, L500.4050, L503.0105 #### [facility] [address] [place], [address] GFR/1.73 sq M.predicted among non-blacks MDRD (S/P/Bld) [Vol rate/Area] 37 mL/min/{1.73_m2} Low >60 [facility] Comment on above: Order Comment: Result Comment: Non- GFR Calc Performed By: #### L [id number], L100.0500, L500.4050, L503.0105 #### [facility] [address] [place], [address] Globulin (S) [Mass/Vol] 3.2 g/dL Normal 2.2-4.2 [facility] Comment on above: Order Comment: Performed By: #### L [id number], L100.0500, L500.4050, L503.0105 #### [facility] [address] [place], [address] Glucose [Mass/Vol] 95 mg/dL Normal 74-106 [facility] Comment on above: Order Comment: Performed By: #### L [id number], L100.0500, L500.4050, L503.0105 #### [facility] [address] [place], [address] Potassium [Moles/Vol] 3.3 mmol/L Low 3.5-5.1 [facility] Comment on above: Order Comment: Performed By: #### L [id number], L100.0500, L500.4050, L503.0105 #### [facility] [address] [place], [address] Sodium [Moles/Vol] 139 mmol/L Normal 136-145 [facility] Comment on above: Order Comment: Performed By: #### L [id number], L100.0500, L500.4050, L503.0105 #### [facility] [address] [place], [address] T PROT 6.3 g/dL Low 6.4-8.2 [facility] Comment on above: Order Comment: Performed By: #### L [id number], L100.0500, L500.4050, L503.0105 #### [facility] [address] [place], [address] Urea nitrogen [Mass/Vol] 31 mg/dL High 7-18 [facility] Comment on above: Order Comment: Performed By: #### L [id number], L100.0500, L500.4050, L503.0105 #### [facility] [address] [place], [address] Erythrocyte distribution wid th (RBC) [Ratio]Ordered By: Dev Gutiererz on 07-02-2024 Erythrocyte distribution width (RBC) [Entitic vol] 50.4 fL High 35.1-43.9 [facility] Erythrocyte distribution wid th ratioOrdered By: Dev Gutierrez on 07-02-2024 Erythrocyte distribution width (RBC) [Ratio] 14.4 % 11.6-14.6 [facility] Erythrocyte distribution wid th standard deviationOrdered By: Dev Gutierrez on 07-02-2024 Erythrocyte distribution width (RBC) [Ratio] 50.4 fl High 35.1-43.9 [facility] Estimated glomerular filtrat ion rate (GFR) AmericanOrdered By: Dev Gutierrez on 07-02-2024 Estimated GFR (MDRD) Amer 45 mL/min Low >60 [facility] Comment on above: GFR Calc Glomerular filtration rate ( GFR) estimationOrdered By: Dev Gutierrez on 07-02-2024 Estimated GFR (MDRD) Non-Af Amer 37 mL/min Low >60 [facility] Comment on above: Non- GFR Calc GFR/1.73 sq M.predicted among non-blacks MDRD (S/P/Bld) [Vol rate/Area] 37 mL/min/{1.73_m2} Low >60 [facility] Comment on above: Non- GFR Calc Glucose measurementOrdered B y: Dev Gutierrez on 07-02-2024 Glucose [Mass/Vol] 95 mg/dL 74-106 [facility] Hematocrit Auto (Bld) [Volum e fraction]Ordered By: Dev Gutierrez on 07-02-2024 Hematocrit (Bld) [Volume fraction] 31.5 % Low 37-47 [facility] Hemoglobin measurementOrdere d By: Dev Gutierrez on 07-02-2024 Hemoglobin (Bld) [Mass/Vol] 9.9 g/dL Low 12.0-15.0 [facility] - Chemistry and C hemistry - challengeOrdered By: Dev Gutierrez on 07-02-2024 AST [Catalytic activity/Vol] 22 U/L 15-37 [facility] MCV (mean corpuscular volume ) determinationOrdered By: Dev Gutierrez on 07-02-2024 MCV (RBC) [Entitic vol] 96.0 fL 81-[address] [facility] Mean corpuscular hemoglobin (MCH) determinationOrdered By: Dev Gutierrez on 07-02-2024 MCH (RBC) [Entitic mass] 30.2 pg 27.0-32.0 [facility] Mean corpuscular hemoglobin concentration (MCHC) determinationOrdered By: Dev Gutierrez on 07-02-2024 MCHC (RBC) [Mass/Vol] 31.4 g/dL Low 32-36 [facility] Mean platelet volume determi nationOrdered By: Dev Gutierrez on 07-02-2024 Platelet mean volume (Bld) [Entitic vol] 10.2 fL 6.2-12.0 [facility] Platelet countOrdered By: Morris on 07-02-2024 Platelets (Bld) [#/Vol] 143 10*3/uL Low 150-450 [facility] Potassium measurementOrdered By: Dev Gutierrez on 07-02-2024 Potassium [Moles/Vol] 3.3 mmol/L Low 3.5-5.1 [facility] RBC Auto (Bld) [#/Vol]Ordere d By: Dev Gutierrez on 07-02-2024 RBC (Bld) [#/Vol] 3.28 10*6/uL Low 4.2-5.4 [facility] Serum anion gap measurementO rdered By: Dev Gutierrez on 07-02-2024 Anion gap [Moles/Vol] 11 mmol/L 5-15 [facility] Serum globulin measurementOr dered By: Dev Gutierrez on 07-02-2024 Globulin (S) [Mass/Vol] 3.2 g/dL 2.2-4.2 [facility] Serum or plasma alanine tovar otransferase (ALT) measurementOrdered By: Dev Gutierrez on 07-02-2024 ALT [Catalytic activity/Vol] 20 U/L 13-56 [facility] Serum or plasma albumin maude urement (mass/volume)Ordered By: Dev Gutierrez on 07-02-2024 Albumin [Mass/Vol] 3.1 g/dL Low 3.2-5.0 [facility] Serum or plasma alkaline nilton sphatase measurementOrdered By: Dev Gutierrez on 07-02-2024 ALP [Catalytic activity/Vol] 68 U/L 45-117 [facility] Serum or plasma calcium maude urement (mass/volume)Ordered By: Dev Gutierrez on 07-02-2024 Calcium [Mass/Vol] 8.6 mg/dL 8.5-10.1 [facility] Serum or plasma creatinine m easurement (mass/volume)Ordered By: Dev Gutierrez on 07-02-2024 Creatinine [Mass/Vol] 1.44 mg/dL High 0.55-1.02 [facility] Comment on above: The validity of the calculated GFR & GFRAA in patients over 70 years has not been determined. Clinical correlation is essential. Serum or plasma thyroid stim ulating hormone (TSH) measurement (units/volume)Ordered By: Dev Gutierrez on 07-02-2024 TSH Qn 5.820 uIU/mL High 0.358-3.740 [facility] Serum or plasma urea nitroge n measurement (mass/volume)Ordered By: Dev Gutierrez on 07-02-2024 Urea nitrogen [Mass/Vol] 31 mg/dL High 7-18 [facility] Sodium levelOrdered By: Dev Gutierrez on 07-02-2024 Sodium [Moles/Vol] 139 mmol/L 136-145 [facility] TSH QnOrdered By: Dev washington on 07-02-2024 Thyroid Stimulating Hormone (TSH) 5.820 uIU/mL High 0.358-3.740 [facility] Thyroid Stim Hormone (TSH)on 07-02-2024 TSH 5.820 uIU/mL High 0.358-3.740 [facility] Comment on above: Order Comment: . Performed By: #### M 100.2200, L100.0500, L400.0001, L500.2500 #### [facility] [address] [place], [place], [id number] Total proteinOrdered By: Danielle Gutierrez on 07-02-2024 Protein [Mass/Vol] 6.3 g/dL Low 6.4-8.2 [facility] Vitamin B12on 07-02-2024 Cobalamin (Vitamin B12) [Mass/Vol] 1871 pg/mL High 211-911 [facility] Comment on above: Order Comment: - Performed By: #### L 501.9520, L100.0500, L500.4050, L503.0105 #### [facility] [address] [place], [place], [id number] Vitamin B12 measurementOrder ed By: Dev Gutierrez on 07-02-2024 Cobalamin (Vitamin B12) [Mass/Vol] 1871 pg/mL High 211-911 [facility] White blood cell (WBC) count Ordered By: Dev Gutierrez on 07-02-2024 WBC (Bld) [#/Vol] 4.8 10*3/uL 4.4-11.0 [facility] Albumin to globulin ratioOrd ered By: Dev Gutierrez on 05-21-2024 Albumin/Globulin [Mass ratio] 1.1 {ratio} Normal 0.9-2.4 [facility] Comment on above: Order Comment: 209.1 Performed By: #### M 100.2200, L100.0500, L400.0001, L500.2500 #### [facility] [address] [place], [place], [id number] Automated blood erythrocyte countOrdered By: Dev Gutierrez on 05-21-2024 RBC (Bld) [#/Vol] 3.11 10*6/uL Low 4.2-5.4 [facility] Comment on above: Order Comment: . Performed By: #### M 100.2200, L100.0500, L400.0001, L500.2500 #### [facility] [address] [place], [place], [id number] Automated blood hematocrit ( percentage)Ordered By: Dev Gutierrez on 05-21-2024 Hematocrit (Bld) [Volume fraction] 30.1 % Low 37-47 [facility] Comment on above: Order Comment: .1 Performed By: #### M 100.2200, L100.0500, L400.0001, L500.2500 #### [facility] [address] [place], [address] Bilirubin, totalOrdered By: Dev Gutierrez on 05-21-2024 Bilirubin [Mass/Vol] 1.00 mg/dL Normal 0.20-1.00 [facility] Comment on above: For patients on eltr ombopag therapy, use of Dimension [place] TBIL is not recommended. Order Comment: 209.1 Result Comment: For patients on eltrombopag therapy, use of Dimension [place] TBIL is not recommended. Performed By: #### M 100.2200, L100.0500, L400.0001, L500.2500 #### [facility] [address] [place], [address] Blood urea nitrogen (BUN)/cr eatinine ratioOrdered By: Dev Gutierrez on 05-21-2024 Urea nitrogen/Creatinine [Mass ratio] 27.1 mg/mg High 10-20 [facility] CBC-Complete Blood Cnt No Di ffon 05-21-2024 RDW SD 48.4 fl High 35.1-43.9 [facility] Comment on above: Order Comment: . Performed By: #### M 100.2200, L100.0500, L400.0001, L500.2500 #### [facility] [address] [place], [place], [id number] Carbon dioxide measurementOr dered By: Dev Gutierrez on 05-21-2024 CO2 [Moles/Vol] 25.0 mmol/L Normal 21.0-32.0 [facility] Comment on above: Order Comment: 209.1 Performed By: #### M 100.2200, L100.0500, L400.0001, L500.2500 #### [facility] [address] [place], [address] Chloride measurementOrdered By: Dev Gutierrez on 05-21-2024 Chloride [Moles/Vol] 112 mmol/L High 98-107 [facility] Comment on above: Order Comment: 209.1 Performed By: #### M 100.2200, L100.0500, L400.0001, L500.2500 #### [facility] [address] [place], [address] Comprehensive Metabolic Prof ilon 05-21-2024 ALK P 105 U/L Normal 45-117 [facility] Comment on above: Order Comment: 209.1 Performed By: #### M 100.2200, L100.0500, L400.0001, L500.2500 #### [facility] [address] [place], [address] BUN/CRE 27.1 RATIO High 10-20 [facility] Comment on above: Order Comment: . Performed By: #### M 100.2200, L100.0500, L400.0001, L500.2500 #### [facility] [address] [place], [address] CA,Total 9.0 mg/dL Normal 8.5-10.1 [facility] Comment on above: Order Comment: . Performed By: #### M 100.2200, L100.0500, L400.0001, L500.2500 #### [facility] [address] [place], [address] EST GFR - AA 63 mL/min Normal >60 [facility] Comment on above: Order Comment: . Result Comment: Afri can [place] GFR Calc Performed By: #### M 100.2200, L100.0500, L400.0001, L500.2500 #### [facility] [address] [place], [address] GAP 6 Normal 5-15 [facility] Comment on above: Order Comment: . Performed By: #### M 100.2200, L100.0500, L400.0001, L500.2500 #### [facility] [address] [place], [address] GFR/1.73 sq M.predicted among non-blacks MDRD (S/P/Bld) [Vol rate/Area] 52 mL/min/{1.73_m2} Low >60 [facility] Comment on above: Order Comment: . Result Comment: Non- GFR Calc Performed By: #### M 100.2200, L100.0500, L400.0001, L500.2500 #### [facility] [address] [place], [address] T PROT 6.0 g/dL Low 6.4-8.2 [facility] Comment on above: Order Comment: 209.1 Performed By: #### M 100.2200, L100.0500, L400.0001, L500.2500 #### [facility] [address] [place], [place], [phone] Comprehensive Metabolic Prof ilOrdered By: Dev Gutierrez on 05-21-2024 AST [Catalytic activity/Vol] 16 U/L Normal 15-37 [facility] Comment on above: Order Comment: 209.1 Performed By: #### M 100.2200, L100.0500, L400.0001, L500.2500 #### [facility] [address] [place], [place], [id number] Erythrocyte distribution wid th (RBC) [Ratio]Ordered By: Dev Gutierrez on 05-21-2024 Erythrocyte distribution width (RBC) [Entitic vol] 48.4 fL High 35.1-43.9 [facility] Erythrocyte distribution wid th ratioOrdered By: Dev Gutierrez on 05-21-2024 Erythrocyte distribution width (RBC) [Ratio] 13.7 % Normal 11.6-14.6 [facility] Comment on above: Order Comment: 209.1 Performed By: #### M 100.2200, L100.0500, L400.0001, L500.2500 #### [facility] [address] [place], [address] Estimated glomerular filtrat ion rate (GFR) AmericanOrdered By: Dev Gutierrez on 05-21-2024 Estimated GFR (MDRD) Amer 63 mL/min >60 [facility] Comment on above: GFR Calc Glomerular filtration rate ( GFR) estimationOrdered By: Dev Gutierrez on 05-21-2024 Estimated GFR (MDRD) Non-Af Amer 52 mL/min Low >60 [facility] Comment on above: Non- GFR Calc Glucose measurementOrdered B y: Dev Gutierrez on 05-21-2024 Glucose [Mass/Vol] 105 mg/dL Normal 74-106 [facility] Comment on above: Fasting Glucose resu lt from 100 to 125 mg/dL suggests IMPAIRED HOMEOSTASIS per A.D.A. criteria. Order Comment: . Result Comment: Fast ing Glucose result from 100 to 125 mg/dL suggests IMPAIRED HOMEOSTASIS per A.D.A. criteria. Performed By: #### M 100.2200, L100.0500, L400.0001, L500.2500 #### [facility] [address] [place], [address] Hemoglobin measurementOrdere d By: Dev Gutierrez on 05-21-2024 Hemoglobin (Bld) [Mass/Vol] 9.7 g/dL Low 12.0-15.0 [facility] Comment on above: Order Comment: . Performed By: #### M 100.2200, L100.0500, L400.0001, L500.2500 #### [facility] [address] [place], [address] MCV (mean corpuscular volume ) determinationOrdered By: Dev Gutierrez on 05-21-2024 MCV (RBC) [Entitic vol] 96.8 fL Normal 81-99 [facility] Comment on above: Order Comment: . Performed By: #### M 100.2200, L100.0500, L400.0001, L500.2500 #### [facility] [address] [place], [address] Mean corpuscular hemoglobin (MCH) determinationOrdered By: Dev Gutierrez on 05-21-2024 MCH (RBC) [Entitic mass] 31.2 pg Normal 27.0-32.0 [facility] Comment on above: Order Comment: . Performed By: #### M 100.2200, L100.0500, L400.0001, L500.2500 #### [facility] [address] [place], [address] Mean corpuscular hemoglobin concentration (MCHC) determinationOrdered By: Dev Gutierrez on 05-21-2024 MCHC (RBC) [Mass/Vol] 32.2 g/dL Normal 32-36 [facility] Comment on above: Order Comment: 209.1 Performed By: #### M 100.2200, L100.0500, L400.0001, L500.2500 #### [facility] [address] [place], [address] Mean platelet volume determi nationOrdered By: Dev Gutierrez on 05-21-2024 Platelet mean volume (Bld) [Entitic vol] 10.2 fL Normal 6.2-12.0 [facility] Comment on above: Order Comment: 209.1 Performed By: #### M 100.2200, L100.0500, L400.0001, L500.2500 #### [facility] [address] [place], [address] Platelet countOrdered By: Morris on 05-21-2024 Platelets (Bld) [#/Vol] 139 10*3/uL Low 150-450 [facility] Comment on above: Order Comment: 209.1 Performed By: #### M 100.2200, L100.0500, L400.0001, L500.2500 #### [facility] [address] [place], [address] Potassium measurementOrdered By: Dev Gutierrez on 05-21-2024 Potassium [Moles/Vol] 4.0 mmol/L Normal 3.5-5.1 [facility] Comment on above: Order Comment: 209.1 Performed By: #### M 100.2200, L100.0500, L400.0001, L500.2500 #### [facility] [address] [place], [address] Serum anion gap measurementO rdered By: Dev Gutierrez on 05-21-2024 Anion gap [Moles/Vol] 6 mmol/L 5-15 [facility] Serum globulin measurementOr dered By: Dev Gutierrez on 05-21-2024 Globulin (S) [Mass/Vol] 2.9 g/dL Normal 2.2-4.[address] [facility] Comment on above: Order Comment: 209.1 Performed By: #### M 100.2200, L100.0500, L400.0001, L500.2500 #### [facility] [address] [place], [address] Serum or plasma alanine tovar otransferase (ALT) measurementOrdered By: Dev Gutierrez on 05-21-2024 ALT [Catalytic activity/Vol] 15 U/L Normal 13-56 [facility] Comment on above: Order Comment: 209.1 Performed By: #### M 100.2200, L100.0500, L400.0001, L500.2500 #### [facility] [address] [place], [address] Serum or plasma albumin maude urement (mass/volume)Ordered By: Dev Gutierrez on 05-21-2024 Albumin [Mass/Vol] 3.1 g/dL Low 3.2-5.0 [facility] Comment on above: Order Comment: 209.1 Performed By: #### M 100.2200, L100.0500, L400.0001, L500.2500 #### [facility] [address] [place], [address] Serum or plasma alkaline nilton sphatase measurementOrdered By: Dev Gutierrez on 05-21-2024 ALP [Catalytic activity/Vol] 105 U/L 45-117 [facility] Serum or plasma calcium maude urement (mass/volume)Ordered By: Dev Gutierrez on 05-21-2024 Calcium [Mass/Vol] 9.0 mg/dL 8.5-10.1 [facility] Serum or plasma creatinine m easurement (mass/volume)Ordered By: Dev Gutierrez on 05-21-2024 Creatinine [Mass/Vol] 1.07 mg/dL High 0.55-1.02 [facility] Comment on above: The validity of the calculated GFR & GFRAA in patients over 70 years has not been determined. Clinical correlation is essential. Order Comment: 209.1 Result Comment: The validity of the calculated GFR GFRAA in patients over 70 years has not been determined. Clinical correlation is essential. Performed By: #### M 100.2200, L100.0500, L400.0001, L500.2500 #### [facility] [address] [place], [address] Serum or plasma urea nitroge n measurement (mass/volume)Ordered By: Dev Gutierrez on 05-21-2024 Urea nitrogen [Mass/Vol] 29 mg/dL High 7-18 [facility] Comment on above: Order Comment: 209.1 Performed By: #### M 100.2200, L100.0500, L400.0001, L500.2500 #### [facility] [address] [place], [address] Sodium levelOrdered By: Dev Gutierrez on 05-21-2024 Sodium [Moles/Vol] 142 mmol/L Normal 136-145 [facility] Comment on above: Order Comment: 209.1 Performed By: #### M 100.2200, L100.0500, L400.0001, L500.2500 #### [facility] [address] [place], [address] TSH QnOrdered By: Dev washington on 05-21-2024 Thyroid Stimulating Hormone (TSH) 0.034 uIU/mL Low 0.358-3.740 [facility] Thyroid Stim Hormone (TSH)on 05-21-2024 TSH 0.034 uIU/mL Low 0.358-3.740 [facility] Comment on above: Order Comment: 209.1 Performed By: #### M 100.2200, L100.0500, L400.0001, L500.2500 #### [facility] [address] [place], [address] Total proteinOrdered By: Danielle Gutierrez on 05-21-2024 Protein [Mass/Vol] 6.0 g/dL Low 6.4-8.2 [facility] White blood cell (WBC) count Ordered By: Dev Gutierrez on 05-21-2024 WBC (Bld) [#/Vol] 5.2 10*3/uL Normal 4.4-11.0 [facility] Comment on above: Order Comment: 209.1 Performed By: #### M 100.2200, L100.0500, L400.0001, L500.2500 #### [facility] [address] [place], [address] Urinalysis, Completeon 05-18 EPI,SQUAMOUS 0-5 SEEN Normal 5-10 [facility] Comment on above: Order Comment: STRAI GHT CATHCATHETER SPECIMEN Performed By: #### M 100.2200, L100.0500, L400.0001, L500.2500 #### [facility] [address] [place], [address] WBC 10-25 SEEN Normal 0-5 [facility] Comment on above: Order Comment: STRAI GHT CATHCATHETER SPECIMEN Performed By: #### M 100.2200, L100.0500, L400.0001, L500.2500 #### [facility] [address] [place], [address] BACTERIA 0 SEEN Normal None Seen [facility] Comment on above: Order Comment: STRAI GHT CATHCATHETER SPECIMEN Performed By: #### M 100.2200, L100.0500, L400.0001, L500.2500 #### [facility] [address] [place], [address] Mucus Ql (Urine sed) 0 SEEN Normal [facility] Comment on above: Order Comment: STRAI GHT CATHCATHETER SPECIMEN Performed By: #### M 100.2200, L100.0500, L400.0001, L500.2500 #### [facility] [address] [place], [address] RBC 0 SEEN Normal 0-5 [facility] Comment on above: Order Comment: AYESHA FERMIN CATHCATHETER SPECIMEN Performed By: #### M 100.2200, L100.0500, L400.0001, L500.2500 #### [facility] [address] [place], [address] Bilirubin Test strip Ql (U)O rdered By: Dev Gutierrez on 05-17-2024 Bilirubin Ql (U) Negative Negative [facility] Epithelial cells.squamous LM Ql (Urine sed)Ordered By: Dev Gutierrez on 05-17-2024 Epithelial cells.squamous LM.HPF (Urine sed) [#/Area] 0 /[HPF] 5-10 [facility] Glucose Ql (U)Ordered By: Morris on 05-17-2024 Urine Glucose (UA) Normal mg/dl Normal [facility] Ketones Test strip Ql (U)Ord ered By: Dev Gutierrez on 05-17-2024 Ketones Ql (U) Negative Negative [facility] Microscopic analysis of urin e for red blood cells (RBC)Ordered By: Dev Gutierrez on 05-17-2024 Urine RBC 0 SEEN /hpf 0-5 [facility] Mucus LM Ql (Urine sed)Order ed By: Dev Gutierrez on 05-17-2024 Mucus Ql (Urine sed) 0 SEEN /hpf [facility] Nitrite Test strip Ql (U)Ord ered By: Dev Gutierrez on 05-17-2024 Nitrite Ql (U) Negative Negative [facility] Protein Test strip Ql (U)Ord ered By: Dev Gutierrez on 05-17-2024 Protein Ql (U) 15 mg/dl High Negative [facility] Urine blood detectionOrdered By: Dev Gutierrez on 05-17-2024 Urine Occult Blood 10 /ul High Negative [facility] Urine clarityOrdered By: Danielle Gutierrez on 05-17-2024 Clarity (U) Sl. Cloudy Clear [facility] Urine color determinationOrd ered By: Dev Gutierrez on 05-17-2024 Color (U) Yellow Yellow [facility] Urine leukocyte esterase det ection by dipstickOrdered By: Dev Gutierrez on 05-17-2024 Leukocyte esterase Test strip Ql (U) 500 /ul High Negative [facility] Urine pHOrdered By: Dev rodriguez on 05-17-2024 pH (U) 6.0 [pH] 5.0 - 8.0 [facility] Urine sediment bacteria coun t by microscopy (number/high power field)Ordered By: Dev Gutierrez on 05-17-2024 Bacteria LM.HPF (Urine sed) [#/Area] 0 /[HPF] None Seen [facility] Urine specific gravity measu rementOrdered By: Dev Gutierrez on 05-17-2024 Specific gravity (U) [Rel density] 1.010 1.002-1.030 [facility] Urobilinogen Ql (U)Ordered B y: Dev Gutierrez on 05-17-2024 Urine Urobilinogen Normal mg/dl Normal [facility] White blood cell countOrdere d By: Dev Gutierrez on 05-17-2024 Urine WBC 10-25 SEEN /hpf 0-5 [facility] Abdomen Single Viewon 2023 Abdomen Single View [facility] Imaging Services [address] [place], [place] [address] Abdomen Single View MR#: [id number] Acct: [id number] Name: JUSTYN CROWDER Rep #: [id number] : 1940 F 84 From: Chey dixon MD PCP: OUT OF TOWN DOCTOR Status: REG CLI Study: Abdomen Single View Date of Exam: 05/04/24 Exam# [id number] Ordering Dr: Rachele Velasquez MD [id number] HISTORY: STONES. TECHNIQUE: XR Abdomen 1 View. [...] Signed: Chey Morley MD at 9:15 EST Reading Location ID and State: [facility] / OR Tel , Service support , CC: Dr. Rachele Velasquez MD Chief Hospital Administrator: Signed Normal [facility] CBC-Complete Blood Cnt No Di ffon 04-23-2024 Erythrocyte distribution width (RBC) [Ratio] 13.8 % Normal 11.6-14.6 [facility] Comment on above: Order Comment: . Performed By: #### M 100.2200, L100.0500, L400.0001, L500.2500 #### [facility] [address] [facility] [place], [address] Hematocrit (Bld) [Volume fraction] 30.1 % Low 37-47 [facility] Comment on above: Order Comment: 209.1 Performed By: #### M 100.2200, L100.0500, L400.0001, L500.2500 #### [facility] [address] [place], [address] Hemoglobin (Bld) [Mass/Vol] 9.8 g/dL Low 12.0-15.0 [facility] Comment on above: Order Comment: 209.1 Performed By: #### M 100.2200, L100.0500, L400.0001, L500.2500 #### [facility] [address] [place], [address] MCH (RBC) [Entitic mass] 30.8 pg Normal 27.0-32.0 [facility] Comment on above: Order Comment: 209.1 Performed By: #### M 100.2200, L100.0500, L400.0001, L500.2500 #### [facility] [address] [place], [address] MCHC (RBC) [Mass/Vol] 32.6 g/dL Normal 32-36 [facility] Comment on above: Order Comment: . Performed By: #### M 100.2200, L100.0500, L400.0001, L500.2500 #### [facility] [address] [place], [address] MCV (RBC) [Entitic vol] 94.7 fL Normal 81-[address] [facility] Comment on above: Order Comment: . Performed By: #### M 100.2200, L100.0500, L400.0001, L500.2500 #### [facility] [address] [place], [address] Platelet mean volume (Bld) [Entitic vol] 9.9 fL Normal 6.2-12.0 [facility] Comment on above: Order Comment: . Performed By: #### M 100.2200, L100.0500, L400.0001, L500.2500 #### [facility] [address] [place], [address] Platelets (Bld) [#/Vol] 152 10*3/uL Normal 150-450 [facility] Comment on above: Order Comment: . Performed By: #### M 100.2200, L100.0500, L400.0001, L500.2500 #### [facility] [address] [place], [address] RBC (Bld) [#/Vol] 3.18 10*6/uL Low 4.2-5.4 [facility] Comment on above: Order Comment: . Performed By: #### M 100.2200, L100.0500, L400.0001, L500.2500 #### [facility] [address] [place], [address] RDW SD 47.7 fl High 35.1-43.9 [facility] Comment on above: Order Comment: 209.1 Performed By: #### M 100.2200, L100.0500, L400.0001, L500.2500 #### [facility] [address] [place], [address] WBC (Bld) [#/Vol] 4.7 10*3/uL Normal 4.4-11.0 [facility] Comment on above: Order Comment: 209.1 Performed By: #### M 100.2200, L100.0500, L400.0001, L500.2500 #### [facility] [address] [place], [address] Erythrocyte distribution wid th (RBC) [Ratio]Ordered By: Dev Gutierrez on 04-23-2024 Erythrocyte distribution width (RBC) [Entitic vol] 47.7 fL High 35.1-43.9 [facility] Erythrocyte distribution wid th ratioOrdered By: Dev Gutierrez on 04-23-2024 Erythrocyte distribution width (RBC) [Ratio] 13.8 % 11.6-14.6 [facility] Hematocrit Auto (Bld) [Volum e fraction]Ordered By: Dev Gutierrez on 04-23-2024 Hematocrit (Bld) [Volume fraction] 30.1 % Low 37-47 [facility] Hemoglobin measurementOrdere d By: Dev Gutierrez on 04-23-2024 Hemoglobin (Bld) [Mass/Vol] 9.8 g/dL Low 12.0-15.0 [facility] MCV (mean corpuscular volume ) determinationOrdered By: Dev Gutierrez on 04-23-2024 MCV (RBC) [Entitic vol] 94.7 fL 81-[address] [facility] Mean corpuscular hemoglobin (MCH) determinationOrdered By: Dev Gutierrez on 04-23-2024 MCH (RBC) [Entitic mass] 30.8 pg 27.0-32.0 [facility] Mean corpuscular hemoglobin concentration (MCHC) determinationOrdered By: Dev Gutierrez on 04-23-2024 MCHC (RBC) [Mass/Vol] 32.6 g/dL 32-36 [facility] Mean platelet volume determi nationOrdered By: Dev Gutierrez on 04-23-2024 Platelet mean volume (Bld) [Entitic vol] 9.9 fL 6.2-12.0 [facility] Platelet countOrdered By: Morris on 04-23-2024 Platelets (Bld) [#/Vol] 152 10*3/uL 150-450 [facility] RBC Auto (Bld) [#/Vol]Ordere d By: Dev Gutierrez on 04-23-2024 RBC (Bld) [#/Vol] 3.18 10*6/uL Low 4.2-5.4 [facility] White blood cell (WBC) count Ordered By: Dev Gutierrez on 04-23-2024 WBC (Bld) [#/Vol] 4.7 10*3/uL 4.4-11.0 [facility] Thyroid Stim Hormone (TSH)on 04-06-2024 TSH 0.024 uIU/mL Low 0.358-3.740 [facility] Comment on above: Order Comment: . Performed By: #### M 100.2200, L100.0500, L400.0001, L500.2500 #### [facility] [address] [place], [address] Basic Metabolic Profile (BMP )on 03-20-2024 BUN/CRE 27.2 RATIO High 10-20 [facility] Comment on above: Order Comment: . Performed By: #### M 100.2200, L100.0500, L400.0001, L500.2500 #### [facility] [address] [place], [address] CA,Total 9.2 mg/dL Normal 8.5-10.1 [facility] Comment on above: Order Comment: . Performed By: #### M 100.2200, L100.0500, L400.0001, L500.2500 #### [facility] [address] [place], [address] Chloride [Moles/Vol] 108 mmol/L High 98-107 [facility] Comment on above: Order Comment: .1 Performed By: #### M 100.2200, L100.0500, L400.0001, L500.2500 #### [facility] [address] [place], [address] CO2 [Moles/Vol] 25.0 mmol/L Normal 21.0-32.0 [facility] Comment on above: Order Comment: .1 Performed By: #### M 100.2200, L100.0500, L400.0001, L500.2500 #### [facility] [address] [place], [address] Creatinine [Mass/Vol] 0.99 mg/dL Normal 0.55-1.02 [facility] Comment on above: Order Comment: .1 Result Comment: The validity of the calculated GFR GFRAA in patients over 70 years has not been determined. Clinical correlation is essential. Performed By: #### M 100.2200, L100.0500, L400.0001, L500.2500 #### [facility] [address] [place], [address] EST GFR - AA 69 mL/min Normal >60 [facility] Comment on above: Order Comment: .1 Result Comment: Afri can [place] GFR Calc Performed By: #### M 100.2200, L100.0500, L400.0001, L500.2500 #### [facility] [address] [place], [address] GAP 8 Normal 5-15 [facility] Comment on above: Order Comment: .1 Performed By: #### M 100.2200, L100.0500, L400.0001, L500.2500 #### [facility] [address] [place], [address] GFR/1.73 sq M.predicted among non-blacks MDRD (S/P/Bld) [Vol rate/Area] 57 mL/min/{1.73_m2} Low >60 [facility] Comment on above: Order Comment: . Result Comment: Non- GFR Calc Performed By: #### M 100.2200, L100.0500, L400.0001, L500.2500 #### [facility] [address] [place], [address] Glucose [Mass/Vol] 99 mg/dL Normal 74-106 [facility] Comment on above: Order Comment: . Performed By: #### M 100.2200, L100.0500, L400.0001, L500.2500 #### [facility] [address] [place], [address] Potassium [Moles/Vol] 4.1 mmol/L Normal 3.5-5.1 [facility] Comment on above: Order Comment: . Performed By: #### M 100.2200, L100.0500, L400.0001, L500.2500 #### [facility] [address] [place] [place], [address] Sodium [Moles/Vol] 141 mmol/L Normal 136-145 [facility] Comment on above: Order Comment: . Performed By: #### M 100.2200, L100.0500, L400.0001, L500.2500 #### [facility] [address] [place], [address] Urea nitrogen [Mass/Vol] 27 mg/dL High 7-18 [facility] Comment on above: Order Comment: . Performed By: #### M 100.2200, L100.0500, L400.0001, L500.2500 #### [facility] [address] [place], [address] Vital Signs Date Time Vital Sign Value Performing Clinician Aleta mcintosh 02-26-2025 15:27-0400 Body height 161.29 cm Out [facility] 02-26-2025 15:27-0400 Body mass index (BMI) [Ratio] 36.2 kg/m2 Out [facility] 02-26-2025 15:27-0400 Body weight 94.34 kg Out [facility] 02-26-2025 15:27-0400 Diastolic blood pressure 74 mm[Hg] Out [facility] 02-26-2025 15:27-0400 Heart rate 70 /min Out [facility] 02-26-2025 15:27-0400 Systolic blood pressure 128 mm[Hg] Out [facility] Encounters Encounter Date Encounter Type Care Provider Facility Start: 02-26-2025 End: 02-26-[address] Rachele Velasquez MD -[facility] Work Phone: Start: 02-26-2025 End: 02-26-2025 ambulatory Out of Town Doctor -[facility] Start: 02-10-2025 Registered Referred Dev Gutierrez MD -[facility] Start: 02-10-2025 End: 02-10-2025 ambulatory Out of Town Doctor Facility:[facility] Start: 01-28-2025 ambulatory Out of Town Doctor Faci lity:[facility] Start: 01-28-2025 Registered [facility] Start: 01-06-2025 End: 01-06-2025 ambulatory [facility] Start: 01-06-2025 End: 01-06-2025 Departed Referred [facility] Start: 01-06-2025 End: 01-06-2025 ambulatory Out of Town Doctor Facility:[facility] Start: 11-27-2024 ambulatory Out of Town Doctor Faci lity:[facility] Start: 11-27-2024 Registered [facility] Start: 11-13-2024 Non-patient / Non-visit Dr. Rachele apodaca MD -[facility] Work Phone: Start: 11-05-2024 End: 11-05-2024 ambulatory Out of Town Doctor Facility:[facility] Start: 09-24-2024 End: 09-24-2024 ambulatory Out of Town Doctor [facility] Work Phone: Start: 09-24-2024 End: 09-24-2024 Departed Referred [facility] Start: 09-24-2024 Registered Referred Dev Gutierrez MD -[facility] Start: 09-24-2024 End: 09-24-2024 ambulatory Out of Town Doctor Facility:[facility] Start: 09-17-2024 End: 09-17-2024 ambulatory Out of Town Doctor [facility] Work Phone: Start: 09-17-2024 End: 09-17-2024 Departed Referred [facility] Start: 09-17-2024 Registered Referred [facility] Start: 09-17-2024 End: 09-17-2024 ambulatory Out of Town Doctor Facility:[facility] Start: 09-11-2024 End: 09-11-2024 ambulatory Out of Town Doctor [facility] Work Phone: Start: 09-11-2024 End: 09-11-2024 Departed Referred [facility] Start: 09-11-2024 Registered Referred [facility] Start: 09-11-2024 End: 09-11-2024 ambulatory Dev GUTIERREZ Facility:[facility] Start: 09-03-2024 End: 09-03-2024 ambulatory Out of Town Doctor [facility] Work Phone: Start: 09-03-2024 End: 09-03-2024 Departed Referred [facility] Start: 09-03-2024 End: 09-03-2024 ambulatory Dev GUTIERREZ Facility:[facility] Start: 08-13-2024 End: 08-13-2024 ambulatory Out of Town Doctor [facility] Work Phone: Start: 08-13-2024 End: 08-13-2024 Departed Referred Jack Rutledge [facility] Start: 08-13-2024 Registered Referred Jack [facility] Start: 08-13-2024 End: 08-13-2024 ambulatory Out of Town Doctor Facility:[facility] Start: 07-30-2024 End: 07-30-2024 ambulatory Out of Town Doctor [facility] Work Phone: Start: 07-30-2024 End: 07-30-2024 Departed Referred [facility] Start: 07-30-2024 [facility] Start: 07-30-2024 End: 07-30-2024 ambulatory Dev GUTIERREZ Facility:[facility] Start: 07-24-2024 End: 07-24-2024 Departed Referred [facility] Start: 07-24-2024 End: 07-24-2024 ambulatory Out of Town Doctor [facility] Work Phone: Start: 07-11-2024 End: 07-11-2024 ambulatory Out of Town Doctor [facility] Work Phone: Start: 07-11-2024 End: 07-11-2024 Departed Referred [facility] Start: 07-11-2024 Registered Referred [facility] Start: 07-11-2024 End: 07-11-2024 ambulatory Dev GUTIERREZ Facility:[facility] Start: 07-06-2024 ambulatory Dev GUTIERREZ Facili ty:[facility] Start: 07-06-2024 Registered Referred [facility] Start: 07-02-2024 ambulatory Devzack GUTIERREZ Facili ty:[facility] Start: 07-02-2024 Registered Referred [facility] Start: 05-21-2024 ambulatory Dev GUTIERREZ Facili ty:[facility] Start: 05-21-2024 Registered Referred Dev Gutierrez MD -[facility] Start: 05-17-2024 ambulatory Dev GUTIERREZ Facili ty:[facility] Start: 05-17-2024 Registered Referred Dev Gutierrez MD -[facility] Start: 05-04-2024 End: 05-04-[address] Rachele Velasquez MD -[facility] [place] Work Phone: Start: 05-04-2024 End: 05-04-2024 ambulatory Out of Town Doctor Facility:[facility] Start: 04-23-2024 End: 04-23-2024 Departed Referred Dev Gutierrez MD -[facility] Start: 04-23-2024 End: 04-23-2024 ambulatory Dev GUTIERREZ Facility:[facility] Start: 04-06-2024 ambulatory [facility] Facility[facility] Start: 03-20-2024 End: 03-20-2024 ambulatory Out of Town Doctor Facility:[facility] Start: 03-07-2024 End: 03-07-2024 Telephone encounter Lev Li MD Work Phone: [facility] Procedures Date Procedure Procedure Detail Performing Clinician Start: 02-10-2025 Urnls dip stick/tabl et reagent auto microscopy [facility] Start: 02-10-2025 Urine culture [facility] Start: 01-06-2025 Urnls dip stick/tabl et reagent auto microscopy [facility] Doctor Start: 01-06-2025 Urine culture Out [facility] Doctor Start: 09-16-2024 Urnls dip stick/tabl et reagent auto microscopy [facility] Doctor Start: 09-16-2024 Urine culture Out Town Doctor Start: 09-03-2024 SARS-CoV-2, Influenz a & RSV (PCR) Out [facility] Doctor Start: 07-24-2024 Urine culture Out Town Doctor Start: 07-24-2024 Urnls dip stick/tabl et reagent auto microscopy Out Town Doctor Start: 02-26-2025 Urine culture Out Town Doctor Start: 07-11-2024 Urnls dip stick/tabl et reagent auto microscopy [facility] Doctor Start: 07-06-2024 Measurement of renal function Out [facility] Doctor Comment on above: GFR Calc Start: 07-02-2024 Measurement of renal function Out [facility] Doctor Comment on above: GFR Calc Start: 05-04-2024 Plain X-ray abdomen Out Town Doctor Plan of Treatment Date Care Activity Detail Author Start: 02-26-2025 End: 02-26-2025 Patient encounter procedure Kidney stones -[facility] Work Phone: Immunizations Immunization Date Immunization Notes Care Provider Tova richardson 02-26-2015 pneumococcal polysaccharide vaccine, 23 valent Out [facility] Doctor [facility] 02-12-2015 Influenza virus vaccine Out Town Doc [facility] Payers Date Payer Category Payer Medicare [id number] 2024 Medicare [id number] 2024 Self-pay 2024 Unknown [id number] 2014 Private Health Insurance [employer] [facility] [id number] [id number] 1997 Medicare MEDICARE [id number] Medicare [employer] MEDICARE PPO [id number] Unknown [id number] .[id number]. 462 Unknown [id number] .1.314273.3.579.2. 462 Unknown [id number] 2.16.840.1.586713.3.579.2. 462 Unknown [id number] 2.16.840.1.917504.3.579.2. 462 Unknown [id number] 2.16.840.1.547516.3.579.2. 462 Unknown [id number] 2.16.840.1.492261.3.579.2. 462 Unknown [id number] 2.16.840.1.215413.3.579.2. 462 Unknown [id number] 2.16.840.1.702167.3.579.2. 462 Unknown [id number] 2.16.840.1.892663.3.579.2. 462 Unknown [id number] 2.840.1.985303.3.579.2. 462 Unknown [id number] 2.840.1.617808.3.579.2. 462 Unknown [id number] 2..840.1.697121.3.579.2. 462 Unknown [id number] 2.16.840.1.221094.3.579.2. 462 Unknown [id number] 2.16.840.1.775972.3.579.2. 462 Unknown [id number] 2.16.840.1.288749.3.579.2. 462 Unknown [id number] 2.840.1.954956.3.579.2. 462 Unknown [id number] 2.16.840.1.342134.3.579.2. 462 Unknown [id number] 2.16.840.1.275815.3.579.2. 462 Unknown [id number] 2.16.840.1.963221.3.579.2. 462 Unknown [id number] 2.16.840.1.570084.3.579.2. 462 Unknown [id number] 2.16.840.1.455520.3.579.2. 462 Unknown [id number] 2.16.840.1.366699.3.579.2. 462 Unknown [id number] 2.16.840.1.958144.3.579.2. 462 Social History Date Type Detail Facility Tobacco smoking stat [facility] Tobacco smoking consumption unknown [facility] Start: 1940 Sex assigned at Not on file [facility] Gender identity Not on file [facility] Start: 04-22-2015 Tobacco smoking stat [facility] Never smoked tobacco (finding) [facility] Start: 04-06-2015 None None [facility] Start: 04-06-2015 Spouse/ Significant Other Spouse/ Significant Other [facility] Start: 08-16-2024 End: 08-30-2024 Sex Female (finding) [facility] Start: 1940 Sex Assigned At Female [facility] Progress note 02-26-2025 Note Date & Type Note Facility 02-26-2025 Progress note [facility] Progress note 02-26-2025 Note Date & Type Note Facility 02-26-2025 Progress note Note Date/Time February 26, 2025 3:59pm [facility] [address], [address] [place] [address] OFFICE VISIT Date of Service: 02/26/25 MR#: [id number] Acct: [id number] Name: JUSTYN CROWDER Rep #: [id number] : 1940 Provider: Dr. Tameka Velasquez MD Age/Sex: 85/F Location: [facility] Status: Signed Intake Vital Signs 02/26/25 15:27 Height 5 ft 3.5 in Weight: 208 lb BMI 36.2 BP 128/74 H Pulse 70 Intake Visit Reasons: Freq.UTI's Chief Complaint: frequenct uti [employer]il [employer] Aide Required: No Accompanied by: daughter Is patient in pain?: No Allergies cephalexin Allergy (Verified 02/26/25 15:26) Rash Medications ?Medication ?Instructions ?Recorded ?Confirmed ?Type ondansetron 4 mg disintegrating 4 mg PO Q8H PRN PRN Na usea 04/22/15 02/26/25 History tablet calcium carbonate (Oyster Shell 500 mg PO DAILY@0800 # 30 TABLETS 05/20/15 02/26/25 Rx Calcium 500) allopurinol 300 mg tablet 300 mg PO DAILY #30 TABLETS 05/21/15 02/26/25 Rx ergocalciferol (vitamin D2) 1,250 50,000 unit PO TU #1 0 caps 05/21/15 02/26/25 Rx mcg (50,000 unit) capsule (Vitamin D2) gabapentin 600 mg tablet 600 mg PO BIDCM #60 TABLETS 05/21/15 02/26/25 Rx levothyroxine 175 mcg tablet 175 mcg PO DAILY #30 TABL ETS 05/21/15 02/26/25 Rx (Levoxyl) zolpidem 5 mg tablet 10 mg (2 x 5 mg) PO QHS PRN PRN 05/21/15 02/26/25 Rx SLEEP #60 TABLETS acetaminophen 325 mg tablet 325 mg PO ONCE PRN 5 02/26/25 History (Tylenol) aluminum-mag hydroxide-simethicone 5 ml PO ONCE 02/26/25 History 200 mg-200 mg-20 mg/5 mL oral susp (Trina-Lanta) carboxymethylcellulose sodium 0.5 1 drp ophthalmic (ey e) BID 02/26/25 02/26/25 History % eye drops in a dropperette (Refresh Plus) cholecalciferol (vitamin D3) 50 50 mcg PO QDAY 02/26/25 History mcg (2,000 unit) capsule (Vitamin D3) cranberry conc-vit ml PO 02/26/25 02/26/25 Hist ory P-ykaqxxx-FOV-bromelain 3,875 mg/30 mL oral liquid (UTI-Stat) cyanocobalamin (vitamin B-12) 1,000 mcg PO QMONTH 02/1302/26/25 History 1,000 mcg capsule dexlansoprazole 30 mg 30 mg PO QDAY 02/26/2502/26 History capsule,biphase delayed release duloxetine 30 mg capsule,delayed 30 mg PO QDAY 5 02/26/25 History release estradiol 0.01% (0.1 mg/gram) vaginal 10/14/25 10/14/2 5 History vaginal cream famotidine 20 mg tablet (Pepcid) 20 mg PO QDAY 5 02/26/25 History gabapentin 800 mg tablet mg PO 02/26/25 02/26/25 Hist ory guaifenesin 100 mg/5 mL oral 200 mg PO Q4H PRN 5 02/26/25 History liquid (Trina-Tussin) hydrocortisone 1 % topical cream 1 applic topical BID PRN 02/26/25 02/26/25 History (Anti-Itch (hydrocortisone)) lidocaine 4 % topical patch 1 patch topical QDAY PRN 1 02/26/25 History (AsperFlex (lidocaine)) magnesium hydroxide 400 mg/5 mL 5 ml PO ONCE 02/26/25 02/26/25 History oral suspension (Milk of Magnesia) ropinirole 0.5 mg tablet 0.5 mg PO QDAY 02/26/2502/13 History sennosides 8.6 mg capsule (senna) 8.6 mg PO QDAY 02/2602/26/25 History simethicone 125 mg capsule (Gas 125 mg PO QD-BID PRN 1 02/26/25 History Relief (simethicone)) sumatriptan succinate 25 mg tablet See Rx Instructions PO .COMPLEX 02/26/25 02/26/25 History (Imitrex) tramadol 50 mg tablet 50 mg PO TID PRN 02/26/25 History vitamins A,C,X-hsch-mqfiml 4,296 1 cap PO BID 02/26/25 02/26/25 History mcg-226 mg-90 mg capsule (PreserVision AREDS) Have you fallen in the past year?: No Nurse's Note: x4 in less than 10 months ddenies sx today PFSH Social History Smoking Status: Never smoker [facility] Chief Complaint: frequenct uti Details: JUSTYN CROWDER, is a 85 F. She is here for follow up urinary tract infections. She has had multiple urinary infections since the last visit. She thinks she hashad about 4-5 since April 2024. She has not had hematuria since her last visit. She is taking the following prevention: UTI stat supplement, estrogen cream. The nursing facility has stopped the nightly antibiotic. It was trimethoprim andthere was maybe an issue with potassium. We discussed Macrodantin 50mg and adding a probiotic. She is also leaking all of the time, using 6 pads a day and pull ups with pads in them during the night. She would like to try a medication for this. We discussed Gemtesa and the side effects. ROS Const Constitutional: No chills, fatigue, fever(s), headache(s), night sweats, weakness, weight change, abnormal sleep pattern or change in appetite Eyes Eyes: No change in vision ENT ENT: No headache(s) or dry mouth Resp Respiratory: No cough, chest congestion, shortness of breath or wheezing Cardio Cardiology: Positive for other (No chest pain.); No shortness of breath, irregular heart rhythm or lightheadedness Gastro GI: Positive for other (No nausea.); No abdominal pain, change in bowel habits, constipation, diarrhea or vomiting Musc Musculoskeletal: Positive for abnormal gait (using wheeled walker.) Skin Skin: No yellowing of the eye, lesions, itchy eyes, rash or skin ulcer Neuro Neurology: Positive for abnormal gait (using wheeled walker.); No confusion, dizziness, weakness, headache(s) or memory loss Psych Psychiatric: No abnormal sleep pattern, No change in appetite, No confusion and No memory loss Endo Endocrine: No fatigue, increased thirst/drinking or weight change Aller/Imm Allergy/Immunologic: No itchy eyes or wheezing Anthony/Lymp Hematologic/Lymphatic: No easy bleeding, easy bruising or enlarged lymph nodes Exam Const General: cooperative, healthy appearing, comfortable, no acute distress and other (wheeled walker.) [facility] Head: normocephalic and atraumatic Ears: hearing grossly normal bilaterally and external ears normal Nose: external nose normal Eyes General: appearance normal, both eyes and all related structures Neck Neck: normal visual inspection and trachea midline Chest Chest palpation & inspection: normal inspection of the chest Resp Effort & Inspection: normal respiratory effort, able to speak in complete sentences and symmetric chest movement Cardio Rate: regular rate GI Inspection: normal to inspection Palpation: soft and nontender General: No CVA tenderness Skin General: no rashes or lesions noted Neuro General: patient alert, patient awake, patient oriented x3 and CN's II-XI intactbilaterally Extrem General: normal to inspection Psych Appearance: grossly normal and well kempt Mental Status: mental status grossly normal Results POC UA Auto w/o Microscopy Office Urine Color Last Edit by Shasha Brock on 02/26/25 15:29 Office Urine Clarity Last Edit by Shasha Brock on 02/26/25 15:29 Office Urine Glucose Negative Last Edit by Shasha Brock on 02/26/25 15:2 9 Office Urine Ketones Negative Last Edit by Shasha Brock on 02/26/25 15:2 9 Office Urine Bilirubin Negative Last Edit by Shasha Brock on 02/26/25 15 :29 Office Urine Urobilinogen 0.2 mg/dL Last Edit by Shasha Brock on 5 15:29 Off Ur Spec [place] 1.010 Last Edit by Shasha Brock on 02/26/25 15:29 Office Urine pH 6 Last Edit by Shasha Brock on 02/26/25 15:29 Office Urine Protein Negative Last Edit by Shasha Brock on 02/26/25 15:2 9 Office Urine Blood Negative Last Edit by Shasha Brock on 02/26/25 15:29 Office Urine Blood Hemolyzed Negative Last Edit by Shasha Brock on 02/26 15:29 Office Urine Nitrate Negative Last Edit by Shasha Brock on 02/26/25 15:2 9 Off Ur Leukocytes Positive Last Edit by Shasha Brock on 02/26/25 15:29 leuks 70 Coding Level of Care Code Off vis,est,level 4 Diagnoses UTI (urinary tract infection) N39.0 Overactive bladder N32.81 Urge incontinence N39.41 Vaginal atrophy N95.2 Kidney stones N20.0 Assessment and Plan Assessment and Plan (1) UTI (urinary tract infection): Status: Acute (2) Overactive bladder: Status: Acute (3) Urge incontinence: Status: Acute (4) Vaginal atrophy: Status: Acute (5) Kidney stones: Status: Acute Orders: Orders POC UA Auto w/o Microscopy Today N39.0 - Urinary tract infection, site not specified Medications: Discontinued morphine ER Discontinued Reason: Pt no longer taking 30 mg PO BID 60 TABLETS 0RF alprazolam Discontinued Reason: Pt no longer taking 0.5 mg PO TID PRN PRN 90 TABLETS 0RF Anxiety lisinopril Discontinued Reason: Pt no longer taking 5 mg PO DAILY 30 TABLETS 0RF venlafaxine Discontinued Reason: Pt no longer taking 50 mg (2 x 25 mg) PO BID 60 [id number] ferrous sulfate (Iron (ferrous sulfate)) Discontinued Reason: Pt no longer taking 325 mg PO BIDCM 60 TABLETS 0RF docusate calcium (Stool Softener (docusate calcium)) Discontinued Reason: Pt no longer taking 240 mg PO BID 60 caps 0RF oxycodone Discontinued Reason: Pt no longer taking 15 mg (3 x 5 mg) PO Q4H PRN PRN 60 TABLETS 0RF Pain Plan continue vitamin C, D-mannose, cranberry supplement, estrogen cream add probiotics resume nightly prophylaxis Gemtesa trial, side effects discussed voiding diary Plan Details Follow Up: 4 Weeks (med and UTI f/u Gemtesa samples today) Clinical Quality Measures Falls Risk Screening/Assistive Devices Have you fallen in the past year?: No 02/26/251808 <Electronically signed by Rachele Velasquez MD> Date _ Rachele Velasquez MD Cosigner Signature: Date (if applicable) CC: ~ [facility] [employer] [facility] Work Phone: Telephone encounter Note 03-07-2024 Telephone Encounter - Анна Batista - 03/07/2024 2:04 PM EDT Note Date & Type Note Facility 03-07-2024 Telephone encount er Note Recd referral from [facility] to schedule a new pt appt, [...] different from the original. Recd referral from [facility] to schedule a new pt appt, when I called the facility today-03/07/24- I was informed by the call center receptionist that they had already made her an appt closer to their facility and to disregard this referral documented in this encounter [facility] Evaluation note Note Date & Type Note Facility Evaluation note No assessment information availa ble [facility] Work Phone: Evaluation note Note Date & Type Note Facility Evaluation note Diagnosis Onset Date Resolution Kidney stones acute February 2:36pm Overactive bladder acute 2024 2:36pm Urge incontinence acute February 26, 2025 2:36pm UTI (urinary tract infection) acute February 26 2:36pm Vaginal atrophy acute February 132024 2:36pm [facility] Work Phone: Reason for referral (narrative) Note Date & Type Note Facility Reason for referral (narrative) No reason for referral information available [facility] Work Phone: Chief Complaint and Reason for Visit Chief Complaint Admit Date LABWORK April 23, 2024 5 :00am KUB- KIDNEY STONES May 04, 2024 3:07pm LONG-TERM LAB WORK May 17, 2024 9:42pm LABWORK May 21, 2024 5: 00am LABWORK July 02, 2024 5:00am LABWORK July 06, 2024 5:00am LABWORK July 11, 2024 5:00am LONG-TERM LAB WORK July 11 1:00pm LONG-TERM LAB WORK July 24, 2024 1 :00am Chief Complaint Admit Date LABWORK April 23, 2024 5 :00am KUB- KIDNEY STONES May 04, 2024 3:07pm LONG-TERM LAB WORK May 17, 2024 9:42pm LABWORK May 21, 2024 5: 00am LABWORK July 02, 2024 5:00am LABWORK July 06, 2024 5:00am LABWORK July 11, 2024 5:00am LONG-TERM LAB WORK July 11 1:00pm LONG-TERM LAB WORK July 24, 2024 1 :00am LONG-TERM LAB WORK July 30, 2024 5 :00am Chief Complaint Admit Date KUB- KIDNEY [facility] May 04, 2024 3:07pm LONG-TERM LAB WORK May 17, 2024 9:42pm LABWORK May 21, 2024 5: 00am LABWORK July 02, 2024 5:00am LABWORK July 06, 2024 5:00am LABWORK July 11, 2024 5:00am LONG-TERM LAB WORK July 11 1:00pm LONG-TERM LAB WORK July 24, 2024 1 :00am LONG-TERM LAB WORK July 30, 2024 5 :00am LABWORK August 13, 2024 5:0 0am Chief Complaint Admit Date LABWORK July 02, 2024 5:00am LABWORK July 06, 2024 5:00am LABWORK July 11, 2024 5:00am LONG-TERM LAB WORK July 11 1:00pm LONG-TERM LAB WORK July 24, 2024 1 :00am LONG-TERM LAB WORK July 30, 2024 5 :00am LABWORK August 13, 2024 5:0 0am LONG-TERM LAB WORK September 03, 2024 5 :00am Chief Complaint Admit Date LABWORK July 02, 2024 5:00am LABWORK July 06, 2024 5:00am LABWORK July 11, 2024 5:00am LONG-TERM LAB WORK July 11 1:00pm LONG-TERM LAB WORK July 24, 2024 1 :00am LONG-TERM LAB WORK July 30, 2024 5 :00am LABWORK August 13, 2024 5:0 0am LONG-TERM LAB WORK September 03, 2024 5 :00am LABWORK September 24, 2024 5:00a m Chief Complaint Admit Date LABWORK July 02, 2024 5:00am LABWORK July 06, 2024 5:00am LABWORK July 11, 2024 5:00am LONG-TERM LAB WORK July 11 1:00pm LONG-TERM LAB WORK July 24, 2024 1 :00am LONG-TERM LAB WORK July 30, 2024 5 :00am LABWORK August 13, 2024 5:0 0am LONG-TERM LAB WORK September 03, 2024 5 :00am LONG-TERM LAB WORK September 11, 2024 4 :00am LONG-TERM LAB WORK September 17, 2024 5:00 am LABWORK September 24, 2024 5:00a m Chief Complaint Admit Date LONG-TERM LAB WORK November 27, 2024 5: 00am LONG-TERM LAB WORK January 06, 2025 9:30pm LONG-TERM LAB WORK January 28 4:00am LONG-TERM LAB WORK February 10 7:00pm Freq.UTI's February 26, 2025 2 :36pm Reason for Visit Admit Date Kidney stones February 26, 2025 2 :36pm Overactive bladder February 26, 2025 2 :36pm Urge incontinence February 26, 2025 2 :36pm UTI (urinary tract infection) February 262024 2:36pm Vaginal atrophy February 26, 2025 2 :36pm Family History No Family History Records Found [...] Care Teams (unrecognized sec tion and content) Personal Counselor Relationship Specialty Start Date End Date Dev Gutierrez Sr., MD [address] [place] [place] [address] [phone] PCP - General Internal Medicine 03/06/24 Team Status: Active Member Role Status Dates INDY ASHOK Family Provider Active Out of [facility] Doctor Primary Care Provider Active Team Status: Inactive Member Role Status Dates Out of [facility] Doctor Primary Care Provider Active Start: April 23, 2024 End: April 23, 2024 Dev GUTIERREZ MD Attending Provider Active S tart: April 23, 2024 End: April 23, 2024 Team Status: Inactive Member Role Status Dates Out of [facility] Doctor Primary Care Provider Active Start: May 04, 2024 End: May 04, 2024 Dr. Rachele Velasquez MD Attending Provider Active Start: May 04, 2024 End: May 04, 2024 Dr. Rachele Velasuqez MD Referring Provider Active Start: May 04, 2024 End: May 04, 2024 Team Status: Active Member Role Status Dates Out of [facility] Primary Care Provider Active Start: May 17, 2024 Dev GUTIERREZ MD Attending Provider Active S tart: May 17, 2024 Dev GUTIERREZ MD Referring Provider Active S tart: May 17, 2024 Team Status: Active Member Role Status Dates Out of [facility] Primary Care Provider Active Start: May 21, 2024 Dev GUTIERREZ MD Attending Provider Active S tart: May 21, 2024 Team Status: Active Member Role Status Dates Out of [facility] Primary Care Provider Active Start: July 02, 2024 Dev GUTIERREZ MD Attending Provider Active S tart: July 02, 2024 Team Status: Active Member Role Status Dates Out of [facility] Primary Care Provider Active Start: July 06, 2024 Dev GUTIERREZ MD Attending Provider Active S tart: July 06, 2024 Team Status: Active Member Role Status Dates Out of [facility] Primary Care Provider Active Start: July 11, 2024 Dev GUTIERREZ MD Attending Provider Active S tart: July 11, 2024 Team Status: Inactive Member Role Status Dates Out of [facility] Primary Care Provider Active Start: July 24, 2024 End: July 24, 2024 Dev GUTIERREZ MD Attending Provider Active S tart: July 24, 2024 End: July 24, 2024 Team Status: Active Member Role Status Dates Out of [facility] Primary Care Provider Active Start: July 30, 2024 Dev GUTIERREZ MD Attending Provider Active S tart: July 30, 2024 Team Status: Active Member Role Status Dates Out of [facility] Primary Care Provider Active Start: August 13, 2024 Jack GUTIERREZ Attending Provider Active Star t: August 13, 2024 Team Status: Inactive Member Role Status Dates Out of [facility] Primary Care Provider Active Start: July 11, 2024 End: July 11, 2024 Dev GUTIERREZ MD Attending Provider Active S tart: July 11, 2024 End: July 11, 2024 Team Status: Inactive Member Role Status Dates Out of [facility] Doctor Primary Care Provider Active Start: July 30, 2024 End: July 30, 2024 Dev GUTIERREZ MD Attending Provider Active S tart: July 30, 2024 End: July 30, 2024 Team Status: Inactive Member Role Status Dates Out of [facility] Primary Care Provider Active Start: August 13, 2024 End: August 13, 2024 Jack GUTIERREZ Attending Provider Active Star t: August 13, 2024 End: August 13, 2024 Team Status: Inactive Member Role Status Dates Out of [facility] Doctor Primary Care Provider Active Start: September 03, 2024 End: September 03, 2024 Dev GUTIERREZ MD Attending Provider Active S tart: September 03, 2024 End: September 03, 2024 Team Status: Active Member Role Status Dates Out of [facility] Primary Care Provider Active Start: September 11, 2024 Dev GUTIERREZ MD Attending Provider Active S tart: September 11, 2024 Team Status: Active Member Role Status Dates Out of [facility] Primary Care Provider Active Start: September 17, 2024 Dev GUTIERREZ MD Attending Provider Active S tart: September 17, 2024 Team Status: Active Member Role Status Dates Out of [facility] Primary Care Provider Active Start: September 24, 2024 Dev GUTIERREZ MD Attending Provider Active S tart: September 24, 2024 Team Status: Inactive Member Role Status Dates Out of [facility] Primary Care Provider Active Start: September 24, 2024 End: September 24, 2024 Dev GUTIERREZ MD Attending Provider Active S tart: September 24, 2024 End: September 24, 2024 Team Status: Inactive Member Role Status Dates Out of [facility] Doctor Primary Care Provider Active Start: September 11, 2024 End: September 11, 2024 Dev GUTIERREZ MD Attending Provider Active S tart: September 11, 2024 End: September 11, 2024 Dev GUTIERREZ MD Referring Provider Active S tart: September 11, 2024 End: September 11, 2024 Team Status: Inactive Member Role Status Dates Out of [facility] Doctor Primary Care Provider Active Start: September 17, 2024 End: September 17, 2024 Dev GUTIERREZ MD Attending Provider Active S tart: September 17, 2024 End: September 17, 2024 Team Status: Active Member Role/Relationship Status Dates [facility] Primary care physician Active Out of [facility] Doctor Primary care physician Active Team Status: Inactive Member Role/Relationship Status Dates Out of [facility] Doctor Primary care physician Active Start: November 13, 2024 Dr. Rachele Velasquez MD Attending physician Active Start: November 13, 2024 Team Status: Active Member Role/Relationship Status Dates Out of [facility] Doctor Primary care physician Active Start: November 27, 2024 Dev GUTIERREZ MD Attending physician Active Start: November 27, 2024 Team Status: Inactive Member Role/Relationship Status Dates Out of [facility] Doctor Primary care physician Active Start: January 06, 2025 End: January 06, 2025 Dev GUTIERREZ MD Attending physician Active Start: January 06, 2025 End: January 06, 2025 Dev GUTIERREZ MD Referring Provider Active S tart: January 06, 2025 End: January 06, 2025 Team Status: Active Member Role/Relationship Status Dates Out of [facility] Doctor Primary care physician Active Start: January 28, 2025 Dev GUTIERREZ MD Attending physician Active Start: January 28, 2025 Dev GUTIERREZ MD Referring Provider Active S tart: January 28, 2025 Team Status: Active Member Role/Relationship Status Dates Out of [facility] Doctor Primary care physician Active Start: February 10, 2025 Dev GUTIERREZ MD Attending physician Active Start: February 10, 2025 Team Status: Inactive Member Role/Relationship Status Dates Out of [facility] Doctor Primary care physician Active Start: February 26, 2025 End: February 26, 2025 Out of [facility] Doctor Referring Provider Active Sta rt: February 26, 2025 End: February 26, 2025 Dr. Rachele Velasquez MD Attending physician Active Start: February 26, 2025 End: February 26, 2025 Goals (unrecognized section and content) Goals may [...] ized section and content) DATE CREATED AUTHOR 03/16/2025 [facility] FOR RECORDS PERTAINING TO PATIENTS [...] BE BASED ON THE PRIMARY CLINICAL RECORDS. [employer] provides no warranty or guarantee of the accuracy or completeness of information in this document.
[2025-04-22 08:18] LABS: Hematocrit 30.4 % (37-47); Hemoglobin 9.9 g/dL (12.0-15.0); Mean Corp Hgb Conc 32.6 g/dL (32-36); Mean Corpuscular Volume 98.4 fL (81-99); Mean Platelet Vol. 10.2 fl (6.2-12.0); Platelet Count 129 K/mm3 (150-450); RBC Distribution Width CV 13.3 % (11.6-14.6); RBC Distribution Width SD 47.2 fl (35.1-43.9); Red Blood Count 3.09 M/mm3 (4.2-5.4); White Blood Count 4.7 K/mm3 (4.4-11.0)
[2025-04-22 08:37] LABS: AST(SGOT) 21 U/L (<=31); Alanine Aminotransfer ALT/SGPT 14 U/L (<=34); Albumin, Serum 3.9 g/dL (3.4-4.8); Alkaline Phosphatase 85 U/L (35-104); Anion Gap 10 (5-15); BUN 32 mg/dL (4-19); BUN/Creat Ratio 31.4 RATIO (10-20); Calcium,Total 9.4 mg/dL (7.6-11.0); Carbon Dioxide 23.6 mmol/L (21.0-32.0); Chloride 109 mmol/L (98-108); Globulin 2.3 g/dL (2.2-4.2); Glucose 97 mg/dL (70-99); Potassium 4.4 mmol/L (3.3-5.1)
== END ==
LOC: OLS.ACH 05:00
PROVIDERS: Visit Provider Internal Medicine
DX: G60.3 Idiopathic progressive neuropathy (principal); D63.1 Anemia in chronic kidney disease; N18.9 Chronic kidney disease, unspecified
CPT/HCPCS: 36415; 80053; 85027